=== PATIENT | female | born 1945 | race Caucasian/White ===

== ENCOUNTER 2016-12-01 23:45 | Emergency (ER) | payer OTHER ==
[~2016-12-01] VITALS: Ht 167.6 cm; Wt 89.0 kg
[~2016-12-01 23:45] MED LIST: CARV6.25 PO; FURO20TA PO; IPRA1AER2 INH; LISI-729 PO; OMEP40CA36 PO; ONDA4TAB65 PO; SERT100T PO; SITA1TAB27 PO; THEO300T14 PO
[2016-12-01 23:54] VITALS: BP 138/85; PULSE 80; TEMP 37.2; O2SAT 95; Ht 167.6 cm; Wt 89.0 kg
--- NOTE | 2016-12-02 00:08 | EMERGENCY ROOM VISIT NOTE ---
History Report prepared by Dayo: Lesa Saenz Under the Supervision of: Dr. Balwinder Sy D.O. First contact with patient: 23:59 Chief Complaint: RASH Stated Complaint: RASH ALL OVER BODY History of Present Illness The patient is a 71 year old female who presents to the Emergency Room with complaints of a persistent diffuse rash on chest, stomach, and bilateral lower extremities rash starting about a year ago. The patient has been applying Nystatin powder and cream without relief. She has run out of the Nystatin cream. The patient denies fevers, chills, or any other complaints. She has a history of diabetes. Source of History: patient Onset: about a year ago Position: chest, abdomen, other (bilateral lower extremities) Quality: other (rash) Modifying Factors (Relieving): other (Nystatin powder and cream without relief) Associated Symptoms: No chills, No fevers Review of Systems See HPI for pertinent positives and negatives. A total of ten systems were reviewed and were otherwise negative. Past Medical & Surgical Medical Problems: (1) Arthritis (2) Asthma (3) Benign hypertension (4) Cholecystectomy (5) COPD (chronic obstructive pulmonary disease) (6) Diabetes (7) Diabetes mellitus (8) Pulmonary emphysema Family History FH: HTN (hypertension) FH: cancer FH: diabetes mellitus FH: heart disease FH: lung cancer FH: lung disease FHx: gallbladder disease Social History Smoking Status: Current Every Day Smoker Marital Status: Housing Status: lives with family Occupation Status: retired Current/Historical Medications Scheduled Carvedilol (Coreg), 6.25 MG PO BID Furosemide (Lasix), 20 MG PO DAILY Lisinopril (Zestril), 5 MG PO QPM Omeprazole (Prilosec), 40 MG PO HS Sertraline Hcl (Zoloft), 100 MG PO DAILY Sitagliptin (Januvia), 100 MG PO DAILY Theophylline Ext Rel (Ho-Dur Ext Rel), 600 MG PO BID Scheduled PRN Ipratropium-Albuterol (Combivent Respimat), 1 PUFFS INH Q4H PRN for Shortness of Breath Ondansetron Hcl (Zofran), 4 MG PO Q8 PRN for Nausea Allergies Coded Allergies: Penicillins (Unverified Allergy, Unknown, TONGUE SWELLING, 03/12/16) Azithromycin (Unverified Adverse Reaction, Unknown, NAUSEA, 03/12/16) Physical Exam Vital Signs Date Time Temp Pulse Resp B/P Pulse Ox O2 Delivery O2 Flow Rate FiO2 12/01/16 23:54 37.2 80 18 138/85 95 Room Air Physical Exam GENERAL: Awake, alert, well-appearing, in no distress HENT: Normocephalic, atraumatic. Oropharynx unremarkable. EYES: Normal conjunctiva. Sclera non-icteric. NECK: Supple. No nuchal rigidity. FROM. No JVD. RESPIRATORY: Clear to auscultation. CARDIAC: Regular rate, normal rhythm. Extremities warm and well perfused. Pulses equal. ABDOMEN: Soft, non-distended. No tenderness to palpation. No rebound or guarding. No masses. RECTAL: Deferred. MUSCULOSKELETAL: Chest examination reveals no tenderness. The back is symmetrical on inspection without obvious abnormality. There is no CVA tenderness to palpation. No joint edema. LOWER EXTREMITIES: Calves are equal size bilaterally and non-tender. No edema. No discoloration. NEURO: Normal sensorium. No sensory or motor deficits noted. SKIN: No rash or jaundice noted. Yeast infection under left breast and near crotch area. Medical Decision & Procedures ED Course 2359: The patient was evaluated in room C03. A complete history and physical exam was performed. 0025: I reevaluated the patient. Discussed results and discharge instructions: She verbalized understanding and agreement. The patient is ready for discharge. Medical Decision Differential diagnosis includes but is not limited to dermatitis, yeast infection, candidiasis, fungal infection. will treat with diflucan and nystatin Impression Primary Impression: Intertrigo Additional Impression: Yeast infection Scribe Attestation The scribe's documentation has been prepared under my direction and personally reviewed by me in its entirety. I confirm that the note above accurately reflects all work, treatment, procedures, and medical decision making performed by me. Departure Information Prescriptions Nystatin (Topical) (NYSTATIN) 100,000 Unit/Gm Oin 1 APPLN TOP QID for 10 Days, #30 GM Prov: Balwinder yS, DO 12/02/16 Fluconazole (DIFLUCAN) 150 Mg Tab 150 MG PO DAILY for 10 Days, #10 TAB Prov: Balwinder Sy, DO 12/02/16 Referrals Arthur Cruz M.D. (PCP) Patient Instructions ED Candidiasis Cutaneous, My [facility] Problem Qualifiers
[2016-12-02] MEDS ORDERED: NYST80OI TOP (00:15)
[2016-12-02] MEDS ORDERED: FLUC150T PO (00:15)
[2017-03-03] MEDS ORDERED: HYDR-4079 PO (13:21)
[2017-03-03] MEDS ORDERED: FAMO20TA11 PO (13:21)
[2017-03-03] MEDS ORDERED: SITA50TA3 PO (13:21)
[2017-06-12] MEDS ORDERED: FURO20TA PO (13:19)
[2017-06-12] MEDS ORDERED: LISI-729 PO (13:19)
== END 2016-12-02 00:23 | disposition home or self-care (01) ==
LOC: C.EDB 23:46 → C.EDC 12-02 00:23
DX: L30.4 Erythema intertrigo (principal); B37.9 Candidiasis, unspecified; E11.9 Type 2 diabetes mellitus without complications; J45.909 Unspecified asthma, uncomplicated; I10 Essential (primary) hypertension; Z90.49 Acquired absence of other specified parts of digestive tract; J44.9 Chronic obstructive pulmonary disease, unspecified; Z82.49 Family history of ischemic heart disease and other diseases of the circulatory system; Z83.3 Family history of diabetes mellitus; Z80.1 Family history of malignant neoplasm of trachea, bronchus and lung; F17.210 Nicotine dependence, cigarettes, uncomplicated; Z79.899 Other long term (current) drug therapy

== ENCOUNTER → 2017-02-28 | Outpatient (CLI) | payer OTHER ==
[~2017-02-28] MED LIST changes: +FAMO20TA11 PO; +HYDR-4079 PO; +SITA50TA3 PO; +THEO1TAB14 PO; -THEO300T14 PO
--- NOTE | 2017-02-28 11:11 | DIAGNOSTIC IMAGING REPORT ---
PET/CT SKULL-THIGH HISTORY: Lung nodule SINGLE PULMONARY NODULE TECHNIQUE: PET/CT was performed from the base of the skull through the pelvis following the intravenous administration of 15.1 mCi of F18-FDG. Non-contrast CT imaging was performed over the same range without breath-hold for attenuation correction of PET images and anatomic correlation, but not for primary interpretation as it is not of standard diagnostic quality. CT DOSE: COMPARISON: None. FINDINGS: HEAD AND NECK: There is no FDG-avid disease or significant lymphadenopathy in the imaged portions of the head and the neck. CHEST: Spiculated FDG avid right retrohilar nodule measuring 2.9 cm at maximum. This is immediately anterior to the right major fissure area SUV characteristics are 6.9 at maximum. 1.4 cm metabolically active right hilar node measuring 5.5 SUV characteristics. Small metabolically active right para aortic node measuring 7 mm. This is SUV characteristics of 3.8. No additional pulmonary findings are present. ABDOMEN/PELVIS: Below the diaphragm, tracer is distributed physiologically in the gastrointestinal and genitourinary tracts. There is no significant lymphadenopathy and no FDG-avid disease. MUSCULOSKELETAL: There is no FDG-avid or destructive bone lesion. IMPRESSION: 1. Metabolically active right upper lobe mass measuring 2.9 cm at maximum. 2. Metabolically active right hilar and right periaortic nodes. 3. Remainder the study is unremarkable. 4. A neoplastic process is the diagnosis of exclusion The above report was generated using voice recognition software. It may contain grammatical, syntax or spelling errors. Electronically signed by: Uriel Ji M.D. 02/28/2017 11:10 AM Dictated Date/Time: 02/28/2017 11:02 AM
== END | disposition home or self-care (01) ==
LOC: C.PET 08:00
PROVIDERS: ATTEND Physician Assistant
DX: R91.8 Other nonspecific abnormal finding of lung field (principal); R91.1 Solitary pulmonary nodule

== ENCOUNTER → 2017-03-04 | Outpatient (CLI) | payer OTHER ==
[~2017-03-04] MED LIST changes: -OMEP40CA36 PO; -SITA1TAB27 PO
== END | disposition home or self-care (01) ==
LOC: C.CPL 13:23
PROVIDERS: ATTEND Physician Assistant
DX: R91.8 Other nonspecific abnormal finding of lung field (principal); R91.1 Solitary pulmonary nodule

== ENCOUNTER → 2017-03-04 | Outpatient (CLI) | payer OTHER ==
[2017-03-04 13:36] LABS: BASO % 0.8 %; BASO ABS # 0.05 K/uL (0-0.2); COMPLETE YES; EOS % 3.1 %; HEMATOCRIT 40.1 % (37-47); IG% 0.2 %; LYMPH % 20.3 %; LYMPH ABS # 1.25 K/uL (1.2-3.4); MEAN CORPUSCULAR HEMOGLOBIN 28.6 pg (25-34); MEAN CORPUSCULAR HGB CONC 34.9 g/dl (32-36); MEAN PLATELET VOLUME 11.3 fL (7.4-10.4); NEUT % 63.6 %; PLATELET COUNT 149 K/uL (130-400); RED BLOOD COUNT 4.89 M/uL (4.2-5.4); WHITE BLOOD COUNT 6.17 K/uL (4.8-10.8)
[2017-03-04 13:44] LABS: PROTHROMBIN TIME (PATIENT) 10.7 SECONDS (9.0-12.0)
[2017-03-04 14:08] LABS: BLOOD UREA NITROGEN 25 mg/dl (7-18); BUN/CREATININE RATIO 13.8 (10-20); CARBON DIOXIDE 23 mmol/L (21-32); CHLORIDE 106 mmol/L (98-107); GLUCOSE 153 mg/dl (70-99); POTASSIUM 3.9 mmol/L (3.5-5.1); SODIUM 137 mmol/L (136-145)
== END | disposition home or self-care (01) ==
LOC: C.LAB1850 12:50
PROVIDERS: ATTEND Physician Assistant
DX: R91.1 Solitary pulmonary nodule (principal)

== ENCOUNTER → 2017-03-09 | Day surgery (SDC) | payer OTHER ==
[2017-03-03 13:22] VITALS: BMI 31.0
[~2017-03-09] VITALS: Ht 167.6 cm; Wt 88.0 kg
[~2017-03-09] MED LIST changes: +ATROPINE SULFATE 0.1 MG/ML 5ML SYR IV PRN; +DEXAMETHASONE SOD INJ 4 MG/ML VIAL ONE; +EpHEDrine SULFATE INJ 50 MG/ML AMP IV PRN; +FENTANYL CITRATE INJ 50 MCG/1 ML 2 ML VIAL IV PRN; +FENTANYL CITRATE INJ 50 MCG/1 ML 2 ML VIAL ONE; +HYDROmorphone INJ 1 MG/ML SYR IV PRN; +LACTATED RINGER'S 1000ML 1,000 ML IV SCH; +LARYING-O-JET KIT (LTA) ONE; +LIDOCAINE HCL 2% 2 ML VIAL (20MG/ML) ONE; +MIDAZOLAM HCL 1 MG/ML 2ML VIAL ONE; +ONDANSETRON INJ 2 MG/ML 2 ML VIAL IV PRN; +ONDANSETRON INJ 2 MG/ML 2 ML VIAL ONE; +PROPOFOL IV EMULSION 10 MG/ML 20 ML VIAL IV ONE; +ROCURONIUM BROMIDE 10 MG/ML 5 ML VIAL IV ONE
[2017-03-09 05:44] VITALS: BP 116/72; PULSE 76; TEMP 36.9; O2SAT 95; Ht 167.6 cm; Wt 88.0 kg
--- NOTE | 2017-03-09 06:28 | History and Physical ---
History & Physical Date Mar 09, 2017. Chief Complaint Pulmonary nodule with mediastinal lymphadenopathy History of Present Illness The patient is a 71 year old female at high risk for primary lung ca her for evalaution of a pulmonary nodule with mediastinal lymphadenopathy: 71-year-old female presents the office for continuation of work-up of pulmonary nodule - post cardiac studies. Prior records reviewed. PMHx includes : Anxiety, CKD, COPD/ACOS, nocturnal hypoxemia on 2 LPM O2 QHS, hypertension, pulmonary nodule, osteoarthritis, vitamin-D deficiency, vitamin B12 deficiency, coronary artery disease, and diabetes mellitus type 2. She is a current smoker, 40+ pack years, current 1/2-ppd. 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 Patient was admitted 02/2016 syncope. Workup included a CT angiogram which described RUL 2.7cm pulmonary nodule as well as right-sided infiltrate - ( reviewed personally). This had been evaluated at that time by Dr. Bravo who recommended an outpatient PET/CT however the patient deferred further testing at that time. Post discharged she discussed her case with her PCP and CT was repeated 10/2016 ( reviewed personally) which continued to describe a 3 x 2.7 x 2.1cm speculated non-calcified posterior inferior RUL nodule/mass. She was referred to our outpatient office 11/2016 for further discussion and she was agreeable to work- up at that time. PET/CT (02/28/17) 2.9cm RUL nodule SUV=6.9 1.4cm right hilar lymphonde SUV=5.5 (10R) 7mm para aortic SUV=3.8 Active Problems 1. Anxiety 2. Asthma with COPD 3. Candidal intertrigo 4. Chronic kidney disease 5. Diabetes mellitus 6. Disorder of tympanic membrane 7. Gastroesophageal reflux disease 8. Hypertension 9. Hypocalcemia 10. Insomnia 11. Knee pain 12. Ligament tear 13. Low back pain 14. Lung mass 15. Osteoarthritis 16. Pulmonary nodule 17. Shortness of breath 18. Thoracic back pain 19. Tinea cruris 20. Tobacco dependence syndrome 21. Vitamin B12 deficiency 22. Vitamin D deficiency Surgical History 1. History of Cholecystectomy 2. History of Tonsillectomy With Adenoidectomy 3. History of Total Abdominal Hysterectomy 4. History of Tubal Ligation Family History 1. Family history of cardiac disorder 2. Family history of diabetes mellitus 3. Family history of gallbladder disease 4. Family history of hypertension 5. Family history of lung cancer 6. Family history of lung disease 7. FHx: cancer Social History Current every day smoker Rarely consumes alcohol Current Meds 1. Combivent Respimat 20-100 MCG/ACT Inhalation Aerosol Solution; One Puff (4) times daily 2. Coreg 6.25 MG Oral Tablet; TAKE 1 TABLET BY MOUTH TWICE DAILY WITH MEALS; 3. Famotidine 20 MG Oral Tablet; TAKE 1 TABLET TWICE DAILY; 4. Hydrocodone-Acetaminophen 10-325 MG Oral Tablet; TAKE 1 TABLET BY MOUTH TWICE DAILY NEEDED FOR PAIN 5. Lasix 20 MG Oral Tablet; TAKE 1 TABLET DAILY DIRECTED; 6. Ho-Dur 300 MG TB12; TAKE 1 TABLET TWICE DAILY; 7. Zestril 5 MG Oral Tablet; TAKE 1 TABLET DAILY 8. Zofran 4 MG Oral Tablet; TAKE 1 TABLET Every 4 hours PRN nausea; 9. Zoloft 100 MG Oral Tablet; TAKE (1) TABLET DAILY Allergies 1. Azithromycin TABS 2. Penicillins Past Medical/Surgical History Medical Problems: (1) Arthritis (2) Asthma (3) Benign hypertension (4) Cholecystectomy (5) COPD (chronic obstructive pulmonary disease) (6) Diabetes (7) Diabetes mellitus (8) Pulmonary emphysema Additional History Hepatic Disease: No Endocrine Disorder: No Kidney Disease: No Hypertension: No Heart Disease: No Bleeding Tendencies: No Infectious Diseases: No Allergies Coded Allergies: Adhesives (Unverified Allergy, Unknown, PULLS SKIN OFF, 03/09/17) Penicillins (Unverified Allergy, Unknown, TONGUE SWELLING, 03/09/17) Azithromycin (Unverified Adverse Reaction, Unknown, NAUSEA, 03/09/17) Home Medications Scheduled Carvedilol (Coreg), 6.25 MG PO BID Famotidine (Pepcid), 20 MG PO BID Furosemide (Lasix), 20 MG PO QAM Hydrocodone/Acetaminophen 10MG/325MG ([place] 10MG/325MG), 1 TAB PO BID Lisinopril (Zestril), 5 MG PO QPM Sertraline Hcl (Zoloft), 100 MG PO QAM Sitagliptin (Januvia), 50 MG PO QAM Theophylline Ext Rel (Ho-Dur Ext Rel), 600 MG PO BID Scheduled PRN Ipratropium-Albuterol (Combivent Respimat), 1 PUFFS INH Q4H PRN for Shortness of Breath Ondansetron Hcl (Zofran), 4 MG PO Q8 PRN for Nausea Physical Examination Skin: warm/dry, no rash Eyes: normal inspection, EOMI, sclerae normal ENT: normal ENT inspection, pharynx normal Head: normocephalic, atraumatic Neck: supple, no adenopathy, trachea midline Respiratory/Chest: lungs clear, normal breath sounds, no respiratory distress Cardiovascular: regular rate, rhythm, no edema, no murmur Abdomen / GI: normal bowel sounds, non tender Back: normal inspection Extremities: normal inspection, normal range of motion Neurologic/Psych: no motor/sensory deficits, alert, normal reflexes, oriented x 3 Diagnosis Pulmonary nodule with mediastinal lymphadenopathy ASA Classification: ASA Class I Plan of Treatment Bronchoscopy with EBUS/ENB/Flexible and associated transbronchial-Transtracheal FNA, Tbbx, BAL and Cytology brushing
--- NOTE | 2017-03-09 07:16 | History & Physical Bridge Note ---
H&P Re-Evaluation Bridge Note: I have examined the patient, reviewed the History & Physical and in the interval since the performance of the History & Physical I have noted the following changes of clinical significance: No changes noted
--- NOTE | 2017-03-09 09:25 | Bronchoscopy Procedure Note ---
Bronchoscopy Procedure Note Procedure: Flexible-Bronchoscopy, EBUS, Tbbx, GETA, FNA trans-bronchial, BAL Consent: Obtained through the patient placed into the chart Preprocedural diagnosis: Positive nodule Postprocedural diagnosis: Non-small cell lung cancer Analgesia: GETA Sedation: GETA Procedure: The Olympus video bronchoscope and EBUS scope were used for this procedure Initially the flexible bronchoscope was used for evaluation of the airways. The ET tube was notably 5 cm above the level of the catia. Trachea: Visualized portion of the trachea was anatomically within normal limits Catia: Anatomically within normal limits Right bronchial tree: Right mainstem bronchus: There was notable enlargement of the secondary catia leading to the right upper lobe Right upper lobe: Anatomically within normal limits Bronchus intermedius: Anatomically within normal limits Right middle lobe: Anatomically within normal limits Right lower lobe: Anatomically within normal limits Findings: No significant findings noted Left bronchial tree: Left mainstem bronchus: Anatomically within normal limits Left upper lobe: Anatomically within normal limits Lingula: Anatomically within normal limits Left lower lobe: Anatomically within normal limits Findings: No significant findings noted EBUS/AMADOU: Tbbx Nicholas Stations: 7: # of passes 3, appears more necrotic versus fat 11R: # of passes 6 (positive for non-small cell lung carcinoma) Nicholas stations: 10L, 4L, 11L, 4R, 2R, 2L, 10R, 11R evaluated with no signs of significant nicholas disease Complications: None Follow-up: Patient is to return to her room
--- NOTE | 2017-03-09 09:40 | DIAGNOSTIC IMAGING REPORT ---
CHEST ONE VIEW PORTABLE CLINICAL HISTORY: 71 years-old Female presenting with status post transbronchial biopsy rule out pneumothorax. TECHNIQUE: Portable upright AP view of the chest was obtained. COMPARISON: 03/12/2016, 10/28/2016, chest CT from 10/28/2016, and PET/CT from 02/28/2017. FINDINGS: Tortuosity of the descending thoracic aorta. Cardiac silhouette normal in size. Interval development of right hilar prominence. Redemonstration of the right upper lobe mass. No additional focal infiltrate or pulmonary nodule is radiographically evident. No large effusion or pneumothorax. Osseous structures normal. Upper abdomen normal. IMPRESSION: 1. No pneumothorax status post biopsy. 2. Interval development of right hilar prominence, which likely corresponds to hilar lymphadenopathy best seen on recent PET/CT. 3. Persistent right upper lobe mass. No new focal infiltrate. Electronically signed by: Huey Joshi M.D. 03/09/2017 9:38 AM Dictated Date/Time: 03/09/2017 9:35 AM
--- NOTE | 2017-03-09 10:08 | Anesthesiology Progress Note ---
Anesthesia Post Op Note Date & Time Mar 09, 2017 at 10:07 Vital Signs Pain Intensity: 0 Vital Signs Past 12 Hours Date Time Temp Pulse Resp B/P (MAP) Pulse Ox O2 Delivery O2 Flow Rate FiO2 03/09/17 09:57 70 19 03/09/17 09:57 71 19 93 03/09/17 09:56 119/74 03/09/17 09:54 36.4 71 19 119/74 (85) 95 Nasal Cannula 2 03/09/17 09:52 74 19 94 03/09/17 09:52 74 19 03/09/17 09:51 129/70 03/09/17 09:47 79 18 94 03/09/17 09:47 79 18 03/09/17 09:46 123/69 03/09/17 09:42 80 19 03/09/17 09:42 81 19 95 03/09/17 09:41 83 18 137/85 97 03/09/17 09:41 83 18 03/09/17 09:36 80 20 03/09/17 09:36 80 20 123/77 96 03/09/17 09:31 81 16 03/09/17 09:31 80 16 129/74 95 03/09/17 09:27 144/74 03/09/17 09:26 85 15 93 03/09/17 09:26 36.2 84 20 144/74 97 Mask 10 03/09/17 09:26 85 15 03/09/17 05:44 36.9 76 20 116/72 (87) 95 Notes Mental Status: alert / awake / arousable, participated in evaluation Pt Amnestic to Procedure: Yes Nausea / Vomiting: adequately controlled Pain: adequately controlled Airway Patency, RR, SpO2: stable & adequate BP & HR: stable & adequate Hydration State: stable & adequate Anesthetic Complications: no major complications apparent Doing well. VSS.
[2017-03-09 10:13] VITALS: BP 109/58; PULSE 72; TEMP 37; O2SAT 94
--- NOTE | 2017-03-09 10:14 | DIAGNOSTIC IMAGING REPORT ---
Radiology CHEST 1 VIEW FRONTAL CLINICAL HISTORY: 71 years-old Female presenting with NAVIGATIONAL BRONCH. TECHNIQUE: 1 fluoroscopic spot image(s) obtained as part of an intraoperative procedure. COMPARISON: Chest x-ray performed the same day. FINDINGS/IMPRESSION: A bronchoscope is noted in the region of the right upper lobe bronchus. Multiple overlying external leads. Please see surgical report for further details. Fluoroscopy dosage (mGy): Not available. Fluoroscopy time: 52 seconds. Number of fluoroscopic spot images: 1. Electronically signed by: Huey Joshi M.D. 03/09/2017 10:13 AM Dictated Date/Time: 03/09/2017 10:12 AM
[2017-03-09 10:45] VITALS: BP 103/60; PULSE 66; O2SAT 94
[2017-03-09 11:15] VITALS: BP 103/58; PULSE 68; TEMP 36.8; O2SAT 95
--- NOTE | 2017-03-09 11:49 | Discharge Instructions ---
Discharge Instructions Date of Service Mar 09, 2017. Admission Reason for Admission: Lung Mass, Pulmonary Nodule Discharge Discharge Diagnosis / Problem: Lung Cancer Discharge Goals Goal(s): Diagnostic testing Activity Recommendations Activity Limitations: resume your previous activity . Instructions / Follow-Up Instructions / Follow-Up Follow-up with Dr. Bravo in the clinic Current Hospital Diet Patient's current hospital diet: Discharge Diet Recommended Diet: Regular Diet Procedures Procedures Performed: Endobronchial Ultrasound Guided Biopsy; Electromagnetic Navigational Bronchoscopy; Transbronchial Biopsy; Fine Needle Aspiration; Bronchial Lavage Pending Studies Studies pending at discharge: no Medical Emergencies . Who to Call and When: Medical Emergencies: If at any time you feel your situation is an emergency, please call 911 immediately. . Non-Emergent Contact Non-Emergency issues call your: Enforcement Officer . . "Provider Documentation" section prepared by Tyron Bravo. . VTE Core Measure Inpt VTE Proph given/why not?: Treatment not indicated
[2017-03-09 12:05] VITALS: BP 115/54; PULSE 74; O2SAT 94
== END | disposition home or self-care (01) ==
LOC: C.ACU 05:11
PROVIDERS: ATTEND Internal Medicine Critical Care Medicine
DX: C34.11 Malignant neoplasm of upper lobe, right bronchus or lung (principal); C77.1 Secondary and unspecified malignant neoplasm of intrathoracic lymph nodes; F41.9 Anxiety disorder, unspecified; J44.9 Chronic obstructive pulmonary disease, unspecified; E11.22 Type 2 diabetes mellitus with diabetic chronic kidney disease; I12.9 Hypertensive chronic kidney disease with stage 1 through stage 4 chronic kidney disease, or unspecified chronic kidney disease; N18.9 Chronic kidney disease, unspecified; I25.10 Atherosclerotic heart disease of native coronary artery without angina pectoris; K21.9 Gastro-esophageal reflux disease without esophagitis; E83.51 Hypocalcemia; E55.9 Vitamin D deficiency, unspecified; E53.8 Deficiency of other specified B group vitamins; G47.36 Sleep related hypoventilation in conditions classified elsewhere; Z99.81 Dependence on supplemental oxygen; F17.210 Nicotine dependence, cigarettes, uncomplicated; Z79.899 Other long term (current) drug therapy

== ENCOUNTER 2017-06-07 21:39 | Inpatient (IN) | payer OTHER ==
[~2017-06-07] VITALS: Ht 167.6 cm; Wt 87.5 kg
[~2017-06-07 21:39] MED LIST changes: -ATROPINE SULFATE 0.1 MG/ML 5ML SYR IV PRN; -DEXAMETHASONE SOD INJ 4 MG/ML VIAL ONE; -EpHEDrine SULFATE INJ 50 MG/ML AMP IV PRN; -FENTANYL CITRATE INJ 50 MCG/1 ML 2 ML VIAL IV PRN; -FENTANYL CITRATE INJ 50 MCG/1 ML 2 ML VIAL ONE; -HYDROmorphone INJ 1 MG/ML SYR IV PRN; -LACTATED RINGER'S 1000ML 1,000 ML IV SCH; -LARYING-O-JET KIT (LTA) ONE; -LIDOCAINE HCL 2% 2 ML VIAL (20MG/ML) ONE; -MIDAZOLAM HCL 1 MG/ML 2ML VIAL ONE; -ONDANSETRON INJ 2 MG/ML 2 ML VIAL IV PRN; -ONDANSETRON INJ 2 MG/ML 2 ML VIAL ONE; -PROPOFOL IV EMULSION 10 MG/ML 20 ML VIAL IV ONE; -ROCURONIUM BROMIDE 10 MG/ML 5 ML VIAL IV ONE; -THEO1TAB14 PO; +THEO300T14 PO
[2017-06-07] MEDS ORDERED: SODIUM CHLORIDE 0.9% 1000ML 1,000 ML IV STA ×2 (21:41)
[2017-06-07] MEDS ORDERED: METOCLOPRAMIDE HCL INJ 5 MG/ML 2 ML VIAL IV STA (21:41)
[2017-06-07 22:08] LABS: PARTIAL THROMBOPLASTIN RATIO 0.9; PROTHROMBIN TIME (PATIENT) 10.7 SECONDS (9.0-12.0)
[2017-06-07 22:25] LABS: ALT/SGPT 21 U/L (12-78); BLOOD UREA NITROGEN 53 mg/dl (7-18); BUN/CREATININE RATIO 33.6 (10-20); CALCIUM 9.4 mg/dl (8.5-10.1); CARBON DIOXIDE 23 mmol/L (21-32); CHLORIDE 105 mmol/L (98-107); CREATININE 1.58 mg/dl (0.60-1.20); GLUCOSE 181 mg/dl (70-99); MAGNESIUM 2.2 mg/dl (1.8-2.4); POTASSIUM 4.1 mmol/L (3.5-5.1); SODIUM 138 mmol/L (136-145)
[2017-06-07 22:27] LABS: ALKALINE PHOSPHATASE 103 U/L (45-117); AST/SGOT 15 U/L (15-37)
--- NOTE | 2017-06-07 22:33 | DIAGNOSTIC IMAGING REPORT ---
CHEST ONE VIEW PORTABLE CLINICAL HISTORY: Sepsis. COMPARISON STUDY: Chest radiograph March 09, 2017 and PET/CT February 28, 2017. FINDINGS: Lung volumes are normal. There is no consolidation to suggest pneumonia. There is suspected subsegmental bibasilar atelectasis. There is no evidence of pulmonary edema. Cardiomediastinal silhouette is normal. The known right upper lobe lesion is less distinct on this examination. IMPRESSION: 1. No acute cardiopulmonary findings. 2. Decreased conspicuity of the known right upper lobe lesion although suboptimally assessed by radiography. Electronically signed by: Woody Albright M.D. 06/07/2017 10:32 PM Dictated Date/Time: 06/07/2017 10:29 PM
[2017-06-07] MEDS ORDERED: DXM/4 PO (22:46)
[2017-06-07 23:05] LABS: HEMATOCRIT 37.5 % (37-47); MEAN CELL VOLUME 82.6 fL (80-100); MEAN CORPUSCULAR HGB CONC 33.9 g/dl (32-36); RED BLOOD COUNT 4.54 M/uL (4.2-5.4); WHITE BLOOD COUNT 1.98 K/uL (4.8-10.8)
[2017-06-07 23:08] LABS: DOHLE BODIES 1+; VACUOLIZATION 1+
[2017-06-07 23:12] LABS: COMPLETE YES; LARGE GRANULAR LYMPH ABSOLUTE 0.33 K/uL; LARGE GRANULAR LYMPHOCYTE % 16.5 %; LYMPH ABS # 0.93 K/uL (1.2-3.4); LYMPHOCYTE % 46.9 %; NEUTROPHILS % 29.6 %
--- NOTE | 2017-06-07 23:51 | EMERGENCY ROOM VISIT NOTE ---
ED Visit Note First contact with patient: 21:38 The patient was seen and examined with Demetria Wood PA-C. I agree with the history, physical and findings. Please see the note for disposition and details.
[2017-06-08] LABS: INFLUENZA A PCR Neg for Influ A (NEG); INFLUENZA B PCR Neg for Influ B (NEG)
[2017-06-08] MEDS ORDERED: MAGNESIUM HYDROXIDE SUSP 30 ML UDC PO PRN (00:15)
[2017-06-08] MEDS ORDERED: ONDANSETRON INJ 2 MG/ML 2 ML VIAL IV PRN (00:15)
[2017-06-08] MEDS ORDERED: ONDANSETRON 4 MG TAB PO PRN (00:15)
[2017-06-08] MEDS ORDERED: POLYETHYLENE (MIRALAX) 17 GM PACK PO PRN (00:15)
[2017-06-08] MEDS ORDERED: ALUMINUM/MAGNESIUM/SIMETH (MAALOX MAX) 30 ML UDC PO PRN (00:15)
[2017-06-08] MEDS ORDERED: GLUCOSE 10 TABS/TUBE PO PRN (00:30)
[2017-06-08] MEDS ORDERED: GLUCAGON FOR INJ 1 MG VIAL SQ PRN (00:30)
[2017-06-08] MEDS ORDERED: DEXTROSE 50% 50 ML SYR IV PRN (00:30)
[2017-06-08] MEDS ORDERED: GLUCOSE 40% GEL 15 GM TUBE PO PRN (00:30)
--- NOTE | 2017-06-08 00:40 | History and Physical ---
History & Physical Date & Time of Service: Jun 08, 2017 at 00:21 Chief Complaint: Lethergy, Dehydration, Nausea, Vomiting, Diarrhea Primary Care Physician: Arthur Cruz M.D. History of Present Illness Source: patient 71 y/o F hx COPD, HTN, LE edema, CKD III, DM - diagnosed with NSCLCA following incidental discovery of a RUL mass 03/03. CA has metastasized to lymph nodes. the pt has received 3 cycles of chemotherapy thus far. She presents with acute onset of nausea, diarrhea and abdominal discomfort beginning the morning prior to admission. She denies fevers, CP, SOB, productive cough or dysuria. Initial labs are notable for neutropenia. She has not been able to tolerate solids or fluids over the preceding day. 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 3) CKD III 4) Type II DM 5) GERD 6) B12 deficiency 7) Vitamin D deficiency 8) HTN 9) Lower extremity edema 10) Active smoker Surgical 1) Surgical biopsy of lung mass 2) Cholecystectomy 3) Tonsillectomy 4) ESTEFANY 5) Tubal ligation Family History FH: HTN (hypertension) FH: cancer FH: diabetes mellitus FH: heart disease FH: lung cancer FH: lung disease FHx: gallbladder disease Social History Smokes up to a pack daily Smoking Status: Current Some Day Smoker Marital Status: Housing status: lives with family Occupational Status: retired Allergies Coded Allergies: Adhesives (Unverified Allergy, Unknown, PULLS SKIN OFF, 03/09/17) Penicillins (Unverified Allergy, Unknown, TONGUE SWELLING, 03/09/17) Azithromycin (Unverified Adverse Reaction, Unknown, NAUSEA, 03/09/17) Home Medications Scheduled Carvedilol (Coreg), 6.25 MG PO BID Dexamethasone (Decadron), 4 MG PO BID UD Famotidine (Pepcid), 20 MG PO BID Furosemide (Lasix), 20 MG PO QAM Lisinopril (Zestril), 5 MG PO QPM Sertraline Hcl (Zoloft), 100 MG PO QAM Sitagliptin (Januvia), 50 MG PO QAM Theophylline Ext Rel (Ho-Dur Ext Rel), 600 MG PO BID Scheduled PRN Hydrocodone/Acetaminophen 10MG/325MG ([place] 10MG/325MG), 1 TAB PO BID PRN for Pain Ipratropium-Albuterol (Combivent Respimat), 1 PUFFS INH Q4H PRN for Shortness of Breath Ondansetron Hcl (Zofran), 4 MG PO Q8 PRN for Nausea Review of Systems Constitutional: + weakness, No fever, No chills, No sweats Eyes: No worsening of vision ENT: No hearing loss, No unusual epistaxis, No nasal symptoms Respiratory: No cough, No sputum, No wheezing, No shortness of breath, No dyspnea on exertion, No dyspnea at rest Cardiovascular: No chest pain, No orthopnea, No PND Abdomen: + pain, + nausea, + vomiting, + diarrhea, No constipation Musculoskeletal: + joint pain (Chronic lower back pain) Genitourinary - Female: No dysuria, No hematuria Neurologic: No memory loss Psychiatric: No depression symptoms Endocrine: No fatigue Hematologic / Lymphatic: No abnormal bleeding/bruising Integumentary: No rash Allergic / Immunologic: No environmental allergies Physical Exam Vital Signs Date Time Temp Pulse Resp B/P (MAP) Pulse Ox O2 Delivery O2 Flow Rate FiO2 06/07/17 22:53 81 14 115/77 96 Room Air 06/07/17 22:14 81 06/07/17 21:45 98 Room Air 06/07/17 21:45 37.2 79 16 121/68 98 Room Air General Appearance: WD/WN, no apparent distress Head: normocephalic Eyes: normal inspection, EOMI ENT: normal ENT inspection, pharynx normal Neck: supple, no JVD Respiratory/Chest: chest non-tender, + decreased breath sounds (L > R) Cardiovascular: regular rate, rhythm, no edema, no gallop, no JVD, no murmur, normal peripheral pulses Abdomen/GI: normal bowel sounds, non tender, soft Back: normal inspection, no CVA tenderness Extremities/Musculoskelatal: normal inspection, no calf tenderness, normal capillary refill, no pedal edema, normal range of motion 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9 36.4-46.3 fL RDW Coefficient of Variation 15.2 11.5-14.5 % Neutrophils % (Manual) 29.6 % Lymphocytes % (Manual) 46.9 % Monocytes % (Manual) 7.0 % Neutrophils # (Manual) 0.59 1.4-6.5 K/uL Total Absolute Neutrophils 0.59 1.4-6.5 K/uL Lymphocytes # (Manual) 0.93 1.2-3.4 K/uL Total Absolute Lymphocytes 1.26 1.2-3.4 K/uL Monocytes # (Manual) 0.14 0.11-0.59 K/uL Percent Large Granular Lymphocytes 16.5 % Absolute Large Granular Lymphocytes 0.33 K/uL Toxic Vacuolation 1+ Dohle Bodies 1+ Prothrombin Time 10.7 9.0-12.0 SECONDS Prothromb Time International Ratio 1.0 0.9-1.1 Activated Partial Thromboplast Time 24.6 21.0-31.0 SECONDS Partial Thromboplastin Ratio 0.9 Sodium Level 138 136-145 mmol/L Potassium Level 4.1 3.5-5.1 mmol/L Chloride Level 105 98-107 mmol/L Carbon Dioxide Level 23 21-32 mmol/L Anion Gap 10.0 3-11 mmol/L Blood Urea Nitrogen 53 7-18 mg/dl Creatinine 1.58 0.60-1.20 mg/dl Est Creatinine Clear Calc Drug Dose 36.7 ml/min Estimated GFR () 37.5 Estimated GFR (Non- 32.3 BUN/Creatinine Ratio 33.6 10-20 Random Glucose 181 70-99 mg/dl Calcium Level 9.4 8.5-10.1 mg/dl Magnesium Level 2.2 1.8-2.4 mg/dl Total Bilirubin 0.9 0.2-1 mg/dl Aspartate Amino Transf (AST/SGOT) 15 15-37 U/L Alanine Aminotransferase (ALT/SGPT) 21 12-78 U/L Alkaline Phosphatase 103 45-117 U/L Troponin I < 0.015 0-0.045 ng/ml Total Protein 7.3 6.4-8.2 gm/dl Albumin 3.7 3.4-5.0 gm/dl Globulin 3.6 2.5-4.0 gm/dl Albumin/Globulin Ratio 1.0 0.9-2 Chemistry Specimen Hemolysis Bedside Troponin I < 0.030 0-0.045 ng/ml Bedside Lactic Acid Venous 1.07 0.90-1.70 mmol/L Influenza Type A (RT-PCR) Neg for Influ A NEG Influenza Type A Antigen Neg for Influ A NEG Influenza Type B Antigen Neg for Influ B NEG Influenza Type B (RT-PCR) Neg for Influ B NEG Microbiology Results 06/07/17 Blood Culture, Received Pending 06/07/17 Blood Culture, Received Pending 06/07/17 C.difficile Toxin B Gene (PCR), Ordered Pending 06/07/17 Shiga Toxin Test, Ordered Pending 06/07/17 Stool Culture, Ordered Pending Diagnostic Radiology CXR: 1. No acute cardiopulmonary findings. 2. Decreased conspicuity of the known right upper lobe lesion although suboptimally assessed by radiography. Abdominal CT: Nonspecific finding of fluid filled loop of small bowel - may represent enteritis. Impression Assessment and Plan 71 y/o F hx COPD, HTN, LE edema, CKD III, DM - diagnosed with NSCLCA following incidental discovery of a RUL mass 03/03. CA has metastasized to lymph nodes. the pt has received 3 cycles of chemotherapy thus far. She presents with acute onset of nausea, diarrhea and abdominal discomfort beginning the morning prior to admission. 1) Intractable nausea and vomiting - pt placed on IVF, clear diet - antiemetics provided - will advance diet AM if tolerated - may be related to Chemo or enteritis. 2) Diarrhea - Cultures sent - do not see clear justification for antibiotic use initially as she does not have signs of systemic infection 3) CKD III - Maintain adequate hydration - Lasix held until tolerating PO 4) DM - placed on SS 5) Neutropenia - Chemo-related - will trend CBC - consult Oncology if needed. 6) COPD - no evidence of acute exacerbation - cont prescribed inhalers 7) HTN - Lasix and Lisinopril held presently owing to dehydration - would continue to hold Lasix and reintroduce SAROJ if renal function and BP are stable. Full code - SCDs pending availability of platelet count Total time for this admit including review of labs, meds, imaging, records - discussion with pt and ER attending - 40 min Level of Care Med/Surg Resuscitation Status FULL RESUSCITATION VTE Prophylaxis VTE Risk Assessment Done? Y/N: Yes Risk Level: High Given or contraindicated: SCD's
--- NOTE | 2017-06-08 00:46 | EMERGENCY ROOM VISIT NOTE ---
History First contact with patient: 21:38 Chief Complaint: NAUSEA Stated Complaint: LETHERGY, DEHYDRATION, NAUSEA, VOMITING, DIARRHEA Nursing Triage Summary: PT C/O PERSISTENT N/V/D TODAY. PT HAS TAKEN ZOFRAN X 3 PO BUT CONTINUES TO HAVE NAUSEA. PT STATES 2ND CHEMOTHERAPY TX 06/02 FOR LUNG AND BONE CANCER. PT STATES HAS NOT EATEN FOR 3 DAYS. History of Present Illness The patient is a 71 year old female who presents to the Emergency Room with complaints of nausea, vomiting, diarrhea and abdominal pain with subjective fevers and chills for the past day. Patient is currently receiving chemotherapy every 3 weeks for lung and bone carcinoma. She last received chemotherapy on the of this month. Patient continues to smoke. She follows with Dr. Simon from oncology. Patient had a few day-old salad last night for dinner. Patient woke up with vomiting and diarrhea. No recent antibiotics. No well water. No recent travel. Patient complains of multiple episodes of vomiting and diarrhea that is nonbloody nonbilious nonblack and tarry in nature. Patient complains of abdominal pain as cramping, ranging in severity 6 out of 10 throughout the abdomen. Patient denies chest pain, headache, sore throat, urinary symptoms. Patient complains of increasing cough clear white sputum. Patient tried 3 Zofrans at home with no improvement of symptoms. Review of Systems See HPI for pertinent positives & negatives. A total of 10 systems reviewed and were otherwise negative. Past Medical/Surgical History Medical Problems: (1) Arthritis (2) Asthma (3) Benign hypertension (4) Cholecystectomy (5) COPD (chronic obstructive pulmonary disease) (6) Diabetes (7) Diabetes mellitus (8) Intractable nausea and vomiting (9) Lung cancer (10) Pulmonary emphysema Family History FH: HTN (hypertension) FH: cancer FH: diabetes mellitus FH: heart disease FH: lung cancer FH: lung disease FHx: gallbladder disease Social History Smoking Status: Current Some Day Smoker Drug Use: none Marital Status: Housing Status: lives with family Occupation Status: retired Current/Historical Medications Scheduled Carvedilol (Coreg), 6.25 MG PO BID Dexamethasone (Decadron), 4 MG PO BID UD Famotidine (Pepcid), 20 MG PO BID Furosemide (Lasix), 20 MG PO QAM Lisinopril (Zestril), 5 MG PO QPM Sertraline Hcl (Zoloft), 100 MG PO QAM Sitagliptin (Januvia), 50 MG PO QAM Theophylline Ext Rel (Ho-Dur Ext Rel), 600 MG PO BID Scheduled PRN Hydrocodone/Acetaminophen 10MG/325MG ([place] 10MG/325MG), 1 TAB PO BID PRN for Pain Ipratropium-Albuterol (Combivent Respimat), 1 PUFFS INH Q4H PRN for Shortness of Breath Ondansetron Hcl (Zofran), 4 MG PO Q8 PRN for Nausea Physical Exam Vital Signs Date Time Temp Pulse Resp B/P (MAP) Pulse Ox O2 Delivery O2 Flow Rate FiO2 06/07/17 22:53 81 14 115/77 96 Room Air 06/07/17 22:14 81 06/07/17 21:45 98 Room Air 06/07/17 21:45 37.2 79 16 121/68 98 Room Air Physical Exam VITALS: Vitals are noted on the nurse's note and reviewed by myself. Vital signs stable. GENERAL: White female actively vomiting, in no acute distress, nondiaphoretic SKIN: The skin was without rashes, erythema, edema, or bruising. There is no tenting of the skin. Capillary reflex less than 2 seconds. HEAD: Normocephalic atraumatic. EARS: External auditory canals clear, tympanic membranes pearly galarza without erythema or effusion bilaterally. EYES: Pupils equal round and reactive to light and accommodation. Conjunctivae without injection, sclerae without icterus. Extraocular movements intact. NOSE: Patent, turbinates without inflammation or discharge. No sinus tenderness. MOUTH: Mucous membranes mildly dry. Pharynx without erythema or exudate. Uvula midline. Airway patent. Tongue does not deviate. NECK: Supple without nuchal rigidity. No lymphadenopathy. No thyromegaly. Cervical spine is nontender. No JVD. HEART: Regular rate and rhythm LUNGS: Clear to auscultation bilaterally without wheezes, rales or rhonchi. No dullness to percussion. No retractions or accessory muscle use. ABDOMEN: Positive bowel sounds x 4. Normal tympanic percussion. Soft, tender to palpation upper abdomen, no CVA tenderness, without masses or organomegaly. Calixto sign negative. No guarding or rebound tenderness. MUSCULOSKELETAL: No muscle atrophy, erythema, or edema noted. NEURO: Patient was alert and oriented to person place and time. Normal sensation to light and sharp touch. No focal neurological deficits. Medical Decision & Procedures Laboratory Results 06/07/17 21:10 Red Blood Count 4.54, Mean Corpuscular Volume 82.6, Mean Corpuscular Hemoglobin 28.0, Mean Corpuscular Hemoglobin Concent 33.9, Mean Platelet Volume 06/07/17 21:10 Test 06/07/17 21:10 06/07/17 21:48 06/07/17 22:15 06/07/17 22:35 White Blood Count 1.98 K/uL (4.8-10.8) Red Blood Count 4.54 M/uL (4.2-5.4) Hemoglobin 12.7 g/dL (12.0-16.0) Hematocrit 37.5 % (37-47) Mean Corpuscular Volume 82.6 fL (80-100) Mean Corpuscular Hemoglobin 28.0 pg (25-34) Mean Corpuscular Hemoglobin Concent 33.9 g/dl (32-36) Platelet Count K/uL (130-400) Mean Platelet Volume fL (7.4-10.4) RDW Standard Deviation 42.9 fL (36.4-46.3) RDW Coefficient of Variation 15.2 % (11.5-14.5) Neutrophils % (Manual) 29.6 % Lymphocytes % (Manual) 46.9 % Monocytes % (Manual) 7.0 % Neutrophils # (Manual) 0.59 K/uL (1.4-6.5) Total Absolute Neutrophils 0.59 K/uL (1.4-6.5) Lymphocytes # (Manual) 0.93 K/uL (1.2-3.4) Total Absolute Lymphocytes 1.26 K/uL (1.2-3.4) Monocytes # (Manual) 0.14 K/uL (0.11-0.59) Percent Large Granular Lymphocytes 16.5 % Absolute Large Granular Lymphocytes 0.33 K/uL Toxic Vacuolation 1+ Dohle Bodies 1+ Prothrombin Time 10.7 SECONDS (9.0-12.0) Prothromb Time International Ratio 1.0 (0.9-1.1) Activated Partial Thromboplast Time 24.6 SECONDS (21.0-31.0) Partial Thromboplastin Ratio 0.9 Anion Gap 10.0 mmol/L (3-11) Est Creatinine Clear Calc Drug Dose 36.7 ml/min Estimated GFR () 37.5 Estimated GFR (Non- 32.3 BUN/Creatinine Ratio 33.6 (10-20) Calcium Level 9.4 mg/dl (8.5-10.1) Magnesium Level 2.2 mg/dl (1.8-2.4) Total Bilirubin 0.9 mg/dl (0.2-1) Aspartate Amino Transf (AST/SGOT) 15 U/L (15-37) Alanine Aminotransferase (ALT/SGPT) 21 U/L (12-78) Alkaline Phosphatase 103 U/L (45-117) Troponin I < 0.015 ng/ml (0-0.045) Total Protein 7.3 gm/dl (6.4-8.2) Albumin 3.7 gm/dl (3.4-5.0) Globulin 3.6 gm/dl (2.5-4.0) Albumin/Globulin Ratio 1.0 (0.9-2) Chemistry Specimen Hemolysis Bedside Troponin I < 0.030 ng/ml (0-0.045) Bedside Lactic Acid Venous 1.07 mmol/L (0.90-1.70) Influenza Type A (RT-PCR) Neg for Influ A (NEG) Influenza Type A Antigen Neg for Influ A (NEG) Influenza Type B Antigen Neg for Influ B (NEG) Influenza Type B (RT-PCR) Neg for Influ B (NEG) Medications Administered Medications (Trade) Dose Ordered Sig/Jennifre Route Start Time Stop Time Status Last Admin Dose Admin Metoclopramide HCl (Reglan Inj) 10 mg NOW STAT IV 06/07/17 21:41 06/07/17 21:44 DC 06/07/17 21:54 10 MG Sodium Chloride 1,000 ml @ 999 mls/hr Q1H1M STAT IV 06/07/17 21:41 06/07/17 22:41 DC 06/07/17 22:20 999 MLS/HR Sodium Chloride 1,000 ml @ 125 mls/hr Q8H STAT IV 06/07/17 21:41 06/08/17 00:11 DC 06/07/17 22:21 125 MLS/HR ED Course Prior records/ancillary studies reviewed. Triage Nursing notes reviewed. Additional history obtained from the EMS. The patient's history was concerning for nausea, vomiting, diarrhea, and abdominal pain who is a chemotherapy patient. Differential diagnosis: Etiologies such as neutropenic fever, gastroenteritis, food borne illness, infections, appendicitis, diverticulitis, inflammatory bowel disease, obstruction, GI bleed, biliary pathology, as well as others were entertained. Physical examination findings: As above. Abdominal examination revealed tenderness. Vital signs reviewed and revealed stable. ER treatment provided: IV hydration 1 L NSS. Reglan On reassessment the patient felt better. Patient was tolerating p.o. intake. Diagnostics interpretation by me: The labs revealed white blood count of 1.98 with neutrophils of 0.59%. Stool cultures pending. Negative lactic acid. Blood cultures pending Imaging studies: CT ABDOMEN & PELVIS Without Contrast: Comparison: PET/CT, 02/28/[address] abdomen and pelvis 05/24/15 Several fluid-filled nondilated loops of small bowel. Findings are nonspecific but can be seen with enteritis in the appropriate clinical setting. No evidence of bowel obstruction. No free air. Colonic diverticulosis without evidence of diverticulitis. Gallbladder is surgically absent. Right renal hypodensities, some compatible with cysts and some too small to characterize. Hyperdense focus in the lower pole of the right kidney is indeterminate but stable, possible hemorrhagic cyst. Left adrenal adenoma. Uterus is surgically absent. Small hiatal hernia. Radiologist: Bakari Garland MD CLINICAL HISTORY: Sepsis. COMPARISON STUDY: Chest radiograph March 09, 2017 and PET/CT February 28, 2017. FINDINGS: Lung volumes are normal. There is no consolidation to suggest pneumonia. There is suspected subsegmental bibasilar atelectasis. There is no evidence of pulmonary edema. Cardiomediastinal silhouette is normal. The known right upper lobe lesion is less distinct on this examination. IMPRESSION: 1. No acute cardiopulmonary findings. 2. Decreased conspicuity of the known right upper lobe lesion although suboptimally assessed by radiography. Electronically signed by: Woody Albright M.D. Consultation: A consultation was placed with the hospitalist, Dr Daniel. The case was discussed and diagnostics were reviewed. The patient was evaluated in the ER for further treatment. This appears to be consistent with vomiting and diarrhea who is a cancer patient. Patient still felt quite weak and was vomiting. She will be evaluated for possible admission. Patient was not neutropenic. Negative lactic acid. Blood cultures are pending. Stool cultures pending. Patient was hydrated as above. By the evaluation outlined above emergent etiologies such as appendicitis, diverticulitis, obstruction, cardiac sources, mesenteric ischemia, aortic pathology, inflammatory bowel disease, renal colic, PUD, biliary pathology, UTI, as well as others were deemed relatively unlikely. The pt informed about the findings as listed above. All questions were answered and pleased with the treatment. Case reviewed with my Attending. Medical Decision As above Medication Reconcilliation Current Medication List: was personally reviewed by me Blood Pressure Screening Patient's blood pressure: Normal blood pressure Impression Primary Impression: Gastroenteritis Additional Impressions: Dehydration Intractable vomiting Departure Information Dispostion Being Evaluated By Hospitalist Condition FAIR Referrals Arthur Cruz M.D. (PCP) Patient Instructions My [facility] Problem Qualifiers
[2017-06-08] MEDS: INSULIN ASPART 100 UNITS/ML 3 ML PEN SC SCH ×5 (01:00→21:04)
[2017-06-08] MEDS ORDERED: IV FLUIDS COMPLETED PRN (01:00)
[2017-06-08] MEDS: SODIUM CHLORIDE 0.9% 1000ML 1,000 ML IV SCH ×2 (01:10→08:14)
[2017-06-08 01:15] VITALS: BP 130/78; PULSE 78; TEMP 37.1; O2SAT 96; BMI 31.3
[2017-06-08] MEDS: IPRATROPIUM BROMIDE/ALBUTEROL respimat INH INH PRN ×2 (05:16→11:26)
[2017-06-08 06:46] LABS: HEMATOCRIT 30.3 % (37-47); MEAN CELL VOLUME 82.8 fL (80-100); MEAN CORPUSCULAR HEMOGLOBIN 28.4 pg (25-34); MEAN CORPUSCULAR HGB CONC 34.3 g/dl (32-36); MEAN PLATELET VOLUME 9.8 fL (7.4-10.4); PLATELET COUNT 139 K/uL (130-400); RED BLOOD COUNT 3.66 M/uL (4.2-5.4); WHITE BLOOD COUNT 1.42 K/uL (4.8-10.8)
--- NOTE | 2017-06-08 06:46 | DIAGNOSTIC IMAGING REPORT ---
CT SCAN OF THE ABDOMEN AND PELVIS WITHOUT CONTRAST CLINICAL HISTORY: Abdominal pain. Patient history of carcinoma. Fever. COMPARISON STUDY: 05/24/2015 TECHNIQUE: CT scan of the abdomen and pelvis was performed from the lung bases to the proximal femurs. Images are reviewed in the axial, sagittal, and coronal planes. IV contrast was not administered for this examination. A dose lowering technique was utilized adhering to the principles of ALARA. CT DOSE: 836.20 mGy.cm FINDINGS: Lower chest: There are minor basilar atelectatic changes. Liver: The unenhanced liver is normal in size, contour, and attenuation. There is no intrahepatic biliary ductal dilatation. Gallbladder: Surgically absent Spleen: Normal in size and attenuation. Pancreas: Unremarkable. Adrenal glands: There is low-density bilateral adrenal gland thickening likely secondary to hyperplasia Kidneys: There is a 9 mm lower pole left renal hypodensity likely representing a cyst. There is a 4 mm hyperdense focus in the upper pole of the right kidney likely representing a hyperdense cyst. There is a 12 mm hyperdense focus within the lower pole of the right kidney likely representing a hyperdense cyst. There is a 2 cm pelvic hypodensity likely are presenting a parapelvic cyst. There is no significant hydronephrosis. No renal, ureteral, or bladder calculi are visualized. Bowel: There are no transition zones indicate bowel obstruction. There is pandiverticulosis. There are no acute peridiverticular inflammatory changes. The appendix is not visualized. There are no findings to indicate acute appendicitis Peritoneum: There is no intraperitoneal free air or abdominal ascites. Vasculature: The abdominal aorta is normal in course and caliber. Adenopathy: None. Pelvic viscera: The uterus is surgically absent. Skeletal structures: No destructive osseous lesions are seen. IMPRESSION: 1. Bilateral renal lesions likely represent a combination of cysts and hyperdense cysts 2. No evidence of bowel obstruction. No evidence of free air 3. Pandiverticulosis. No evidence of acute diverticulitis. Electronically signed by: Rosales Garcia M.D. 06/08/2017 6:44 AM Dictated Date/Time: 06/08/2017 6:40 AM
[2017-06-08 07:22] LABS: BUN/CREATININE RATIO 32.6 (10-20); CALCIUM 7.8 mg/dl (8.5-10.1); CREATININE 1.35 mg/dl (0.60-1.20); MAGNESIUM 1.9 mg/dl (1.8-2.4); POTASSIUM 3.9 mmol/L (3.5-5.1)
[2017-06-08 07:49] VITALS: BP 117/73; PULSE 86; TEMP 36.7; O2SAT 95
[2017-06-08] MEDS ORDERED: HYDROCODONE/ACETAMI 10/325 TAB PO PRN (08:00)
[2017-06-08] MEDS ORDERED: INFLUENZA VACCINE HIGH DOSE 65+ 0.5 ML SYR IM. ONE (08:00)
[2017-06-08] MEDS ORDERED: INFLUENZA ADMINISTRATION CHARGE ONE (08:00)
[2017-06-08] MEDS: SERTRALINE HCL 100 MG TAB PO SCH (08:12)
[2017-06-08] MEDS: THEOPHYLLINE 300MG EXTENDED REL TAB PO SCH ×2 (08:12→20:02)
[2017-06-08] MEDS: CARVEDILOL 6.25 MG TAB PO SCH ×2 (08:12→20:02)
[2017-06-08] MEDS: FAMOTIDINE 20 MG TAB PO SCH ×2 (08:12→20:02)
[2017-06-08] MEDS: DEXAMETHASONE 4 MG TAB PO SCH ×2 (08:13→20:02)
[2017-06-08 08:22] VITALS: BP 129/66; PULSE 56; TEMP 36.5; O2SAT 91
[2017-06-08 10:11] LABS: COMPLETE YES; EOS % 1.3 %; IG% 5.3 %; LYMPH % 57.3 %; LYMPH ABS # 0.86 K/uL (1.2-3.4); MONO % 6.7 %; NEUT % 29.4 %
[2017-06-08 11:24] LABS: URINE APPEARANCE CLEAR (CLEAR); URINE BILIRUBIN NEG (NEG); URINE COLOR YELLOW; URINE NITRITE NEG (NEG); URINE SPECIFIC GRAVITY 1.019 (1.000-1.030); UROBILINOGEN NEG (NEG); ZZUR CULT IF INDIC CLEAN CATCH NO
[2017-06-08 11:30] LABS: MANUAL MICROSCOPIC REQUIRED? NO; REVIEW REQ? NO
--- NOTE | 2017-06-08 11:53 | Progress Note ---
Progress Note Date of Service Jun 08, 2017. Progress Note Patient admitted after midnight. Examined by me this morning. The patient reports feeling better today. She is tolerating clear liquids without more nausea or vomiting. She still has some epigastric pain as well as diarrhea. She denies any hematochezia or melena. She reports a mild productive cough with clear sputum. She also notes numbness/tingling in the bottom of her feet bilaterally, which began Tuesday and is new. The patient denies fevers, chills, sweats, chest pain, palpitations, claudication, wheezing , shortness of breath, nausea, vomiting, abdominal pain, dysuria, hematuria, urinary retention, paralysis, weakness. Physical exam pertinent for epigastric tenderness, otherwise unremarkable. A/P: Nausea and vomiting--resolving -No N/V today -Tolerating clear liquids -Advance to full liquids -Zofran prn nausea Diarrhea -C. diff negative -Stool cultures pending -Afebrile, no other s/s infection. Hold off on abx Neutropenia--ongoing -Likely secondary to recent chemo, last session 06/02 -Can consult oncology if worsening
[2017-06-08 11:59] VITALS: BP 106/63; PULSE 79; TEMP 37.4; O2SAT 95
[2017-06-08 15:58] VITALS: BP 96/57; PULSE 91; TEMP 37.3; O2SAT 95
[2017-06-08] MEDS: BOOST GLUCOSE CONTROL PO SCH (17:11)
[2017-06-08 19:24] VITALS: BP 106/61; PULSE 93; TEMP 36.9; O2SAT 99
[2017-06-08] MEDS: ACETAMINOPHEN 325 MG TAB PO PRN (23:51)
[2017-06-09] VITALS (11 sets, daily range): BP systolic 92–153; BP diastolic 48–94; PULSE 77–110; TEMP 36.9–39.4; O2SAT 95–99
[2017-06-09 06:29] LABS: HEMATOCRIT 26.3 % (37-47); MEAN CELL VOLUME 82.7 fL (80-100); MEAN CORPUSCULAR HEMOGLOBIN 27.7 pg (25-34); MEAN CORPUSCULAR HGB CONC 33.5 g/dl (32-36); MEAN PLATELET VOLUME 9.8 fL (7.4-10.4); PLATELET COUNT 97 K/uL (130-400); RED BLOOD COUNT 3.18 M/uL (4.2-5.4); WHITE BLOOD COUNT 0.78 K/uL (4.8-10.8)
[2017-06-09 06:38] LABS: PLT ESTIMATE DECREASED
[2017-06-09 06:47] LABS: BUN/CREATININE RATIO 28.9 (10-20); CALCIUM 7.9 mg/dl (8.5-10.1); CREATININE 1.03 mg/dl (0.60-1.20); POTASSIUM 4.5 mmol/L (3.5-5.1)
[2017-06-09] MEDS: INSULIN ASPART 100 UNITS/ML 3 ML PEN SC SCH ×4 (07:53→20:29)
[2017-06-09] MEDS: SERTRALINE HCL 100 MG TAB PO SCH (07:54)
[2017-06-09] MEDS: DEXAMETHASONE 4 MG TAB PO SCH (07:54)
[2017-06-09] MEDS: THEOPHYLLINE 300MG EXTENDED REL TAB PO SCH ×2 (07:54→20:26)
[2017-06-09] MEDS: CARVEDILOL 6.25 MG TAB PO SCH ×2 (07:54→20:26)
[2017-06-09] MEDS: FAMOTIDINE 20 MG TAB PO SCH ×2 (07:54→20:25)
[2017-06-09] MEDS: BOOST GLUCOSE CONTROL PO SCH ×3 (07:56→17:00)
[2017-06-09] MEDS ORDERED: CEFEPIME IV 2,000 MG in DEXTROSE 5% 100ML 100 ML IV SCH (09:00)
[2017-06-09] MEDS ORDERED: CEFEPIME IV 2,000 MG in SYRINGE 7.5 ML IV SCH (10:00)
[2017-06-09] MEDS: CEFEPIME IV 2,000 MG in SYRINGE 7.5 ML IV SCH ×2 (10:21→18:11)
[2017-06-09] MEDS: ACETAMINOPHEN 325 MG TAB PO PRN (10:30)
--- NOTE | 2017-06-09 12:19 | Oncology Consultation ---
Oncology/Heme Consultation Date of Consultation: Jun 09, 2017. Attending Physician: Natasha Manriquez MD Reason for Consultation: Pancytopenia history of non-small cell lung carcinoma History of Present Illness Ms. Roegl is a 71-year-old female that has a history of non-small cell lung carcinoma felt to be adenocarcinoma and was biomarker negative. She was diagnosed in mid February. A PET CT scan results suggested at least stage III and possibly stage IIIb disease. She has been treated with pemetrexed and carboplatinum with the last treatment being June 02. She states that on Tuesday she became nauseated. She is able to keep food down. She states that she feels that she has had a fever although she has never recorded a temperature at home. She does admit to an occasional chill. She denies diarrhea. She denies any mouth sores or new shortness of breath. She has been treated with Neulasta as support. She now presents with cytopenias secondary to her therapy. Past Medical/Surgical History Medical Problems: (1) Dehydration Status: Acute (2) Gastroenteritis Status: Acute (3) Intertrigo Status: Acute (4) Intractable vomiting Status: Acute (5) Mass of right lung Status: Acute (6) Near syncope Status: Acute (7) Pain of left calf Status: Acute (8) Yeast infection Status: Acute Family History FH: HTN (hypertension) FH: cancer FH: diabetes mellitus FH: heart disease FH: lung cancer FH: lung disease FHx: gallbladder disease Social History Smoking Status: Current Some Day Smoker Drug Use: none Marital Status: Housing Status: lives with family Occupation Status: retired Allergies Coded Allergies: Adhesives (Unverified Allergy, Unknown, PULLS SKIN OFF, 03/09/17) Penicillins (Unverified Allergy, Unknown, TONGUE SWELLING, 03/09/17) Azithromycin (Unverified Adverse Reaction, Unknown, NAUSEA, 03/09/17) Home Medications Scheduled Carvedilol (Coreg), 6.25 MG PO BID Dexamethasone (Decadron), 4 MG PO BID UD Famotidine (Pepcid), 20 MG PO BID Furosemide (Lasix), 20 MG PO QAM Lisinopril (Zestril), 5 MG PO QPM Sertraline Hcl (Zoloft), 100 MG PO QAM Sitagliptin (Januvia), 50 MG PO QAM Theophylline Ext Rel (Ho-Dur Ext Rel), 600 MG PO BID Scheduled PRN Hydrocodone/Acetaminophen 10MG/325MG ([place] 10MG/325MG), 1 TAB PO BID PRN for Pain Ipratropium-Albuterol (Combivent Respimat), 1 PUFFS INH Q4H PRN for Shortness of Breath Ondansetron Hcl (Zofran), 4 MG PO Q8 PRN for Nausea Current Inpatient Medications Current Inpatient Medications Medications (Trade) Dose Ordered Sig/Jennifer Route Start Time Stop Time Status Last Admin Dose Admin Acetaminophen (Tylenol Tab) 650 mg Q4H PRN PO 06/08/17 00:15 07/08/17 00:14 06/09/17 10:30 650 MG Al Hydrox/Mg Hydrox/Simethicone (Maalox Max Susp) 15 ml Q4H PRN PO 06/08/17 00:15 07/08/17 00:14 Magnesium Hydroxide (Milk Of Magnesia Susp) 30 ml Q6H PRN PO 06/08/17 00:15 07/08/17 00:14 Polyethylene (Miralax Powder Packet) 17 gm DAILY PRN PO 06/08/17 00:15 07/08/17 00:14 Ondansetron HCl (Zofran Inj) 4 mg Q6H PRN IV 06/08/17 00:15 07/08/17 00:14 Carvedilol (Coreg Tab) 6.25 mg BID PO 06/08/17 08:00 07/08/17 08:59 06/09/17 07:54 6.25 MG Dexamethasone (Decadron Tab) 4 mg BID PO 06/08/17 08:00 07/08/17 08:59 06/09/17 07:54 4 MG Famotidine (Pepcid Tab) 20 mg BID PO 06/08/17 08:00 07/08/17 08:59 06/09/17 07:54 20 MG Acetaminophen/ Hydrocodone Bitart ([place] 10/325 Tab) 1 tab BID PRN PO 06/08/17 08:00 06/22/17 08:59 Albuterol/ Ipratropium (Combivent Respimat Inh) 1 puffs Q4H PRN INH 06/08/17 00:15 07/08/17 00:14 06/08/17 11:26 1 PUFFS Ondansetron HCl (Zofran Tab) 4 mg Q8 PRN PO 06/08/17 00:15 07/08/17 00:14 Sertraline HCl (Zoloft Tab) 100 mg QAM PO 06/08/17 08:00 07/08/17 08:59 06/09/17 07:54 100 MG Theophylline (Ho-Dur Extended Rel Tab) 600 mg BID PO 06/08/17 08:00 07/08/17 08:59 06/09/17 07:54 600 MG Insulin Aspart (novoLOG ASPART) SLIDING SCALE G... ACHS SC 06/08/17 01:00 07/08/17 00:59 06/09/17 12:13 3 UNITS Glucose (Glucose 40% Gel) 15-30 GRAMS 15 GRAMS... UD PRN PO 06/08/17 00:30 07/08/17 00:29 Glucose (Glucose Chew Tab) 4-8 Tablets 4 Tabl... UD PRN PO 06/08/17 00:30 07/08/17 00:29 Dextrose (Dextrose 50% 50ML Syringe) 25-50ML OF 50% DW IV FOR... UD PRN IV 06/08/17 00:30 07/08/17 00:29 Glucagon (Glucagon Inj) 1 mg UD PRN SQ 06/08/17 00:30 07/08/17 00:29 Miscellaneous (Iv Fluids Completed) 1 ea PRN PRN N/A 06/08/17 01:00 06/08/18 00:59 Enteral Nutritional Formula (Boost Glucose Control) 1 can TIDM PO 06/08/17 17:00 07/08/17 16:59 06/09/17 07:56 1 CAN Cefepime HCl 2000 mg/Syringe 20 ml @ 5 mls/min Q8H IV 06/09/17 10:00 06/11/17 09:59 06/09/17 10:21 5 MLS/MIN Review of Systems Constitutional: Negative for night sweats, possible fever and chills at home Eyes: Negative for event change of vision ENT: Negative for epistaxis, nasal discharge, sore throat, or deafness Cardiovascular: Negative for chest pain, palpitations, dizziness, diaphoresis Respiratory: Negative for new shortness of breath,hemoptysis, or purulent cough Gastrointestinal: Negative for diarrhea, hematemesis, melena, nausea, vomiting , or dyspepsia Integumentary (skin): Negative for rash or jaundice discoloration Genitourinary: Negative for urinary frequency, hematuria, or dysuria Neurological: Negative for weakness, seizure activity, headache, or dizziness Lymphatic/Hematologic: Negative for petechiae, bleeding or new adenopathy Musculoskeletal: Negative for new joint or back pain Allergic/Immunologic: Negative for unusual rash or pruritis. Physical Exam Date Time Temp Pulse Resp B/P (MAP) Pulse Ox O2 Delivery O2 Flow Rate FiO2 06/09/17 11:21 39.2 110 20 92/48 (63) 97 06/09/17 10:25 39.4 06/09/17 08:30 99 Room Air 06/09/17 07:40 37.6 90 18 153/94 (113) 99 Room Air 06/09/17 04:17 37.1 88 19 106/63 (77) 97 Room Air 06/09/17 01:30 38.4 06/09/17 00:37 39.2 90 18 114/70 (85) 95 Room Air 06/09/17 00:09 39.0 97 18 137/76 (96) 95 Room Air 06/09/17 00:00 Room Air 06/08/17 19:24 36.9 93 18 106/61 (76) 99 Room Air 06/08/17 16:00 Room Air 06/08/17 15:58 37.3 91 17 96/57 (70) 95 Room Air Constitutional: vitals are stable. Eyes: Eyes are YANNI EOMI without conjuctival erythema or icterus. ENT: External examination was negative for masses. Neck: Negative for masses or palpable thyromegaly Respiratory: Lung sounds were generally clear bilaterally Cardiovascular: Heart was RRR without significant murmur, gallops ore rubs Gastrointestinal: No palpable hepatic or splenomegaly. The abdomen was soft with normal bowel sounds. Lymphatic system: there was no palpable peripheral lymphadenopathy Musculoskeletal System: The musculoskeletal system seemed concordant with age. Skin: The skin was negative for jaundice. Neurologic exam: The exam was negative for any focal findings. Deep tendon reflexes were equal and symmetrical. Psychiatric exam: Was essentially negative with normal mood and effect. Breast exam:Not done. Extremities: negative for edema Laboratory Results Last 24 Hours Test 06/08/17 14:39 06/08/17 16:32 06/08/17 20:32 06/09/17 05:51 Calcium Level 7.8 mg/dl 7.9 mg/dl Bedside Glucose 196 mg/dl 220 mg/dl White Blood Count 0.78 K/uL Red Blood Count 3.18 M/uL Hemoglobin 8.8 g/dL Hematocrit 26.3 % Mean Corpuscular Volume 82.7 fL Mean Corpuscular Hemoglobin 27.7 pg Mean Corpuscular Hemoglobin Concent 33.5 g/dl RDW Standard Deviation 42.4 fL RDW Coefficient of Variation 14.6 % Platelet Count 97 K/uL Mean Platelet Volume 9.8 fL Platelet Estimate DECREASED Sodium Level 135 mmol/L Potassium Level 4.5 mmol/L Chloride Level 106 mmol/L Carbon Dioxide Level 20 mmol/L Anion Gap 9.0 mmol/L Blood Urea Nitrogen 30 mg/dl Creatinine 1.03 mg/dl Est Creatinine Clear Calc Drug Dose 55.7 ml/min Estimated GFR () 62.9 Estimated GFR (Non- 54.3 BUN/Creatinine Ratio 28.9 Random Glucose 152 mg/dl Test 06/09/17 07:34 06/09/17 11:31 Bedside Glucose 138 mg/dl 248 mg/dl Assessment & Plan Pancytopenia secondary to her therapy for stage IIIb adenocarcinoma of the lung. Supportive care continues. Antibiotics are ongoing. She seems fairly comfortable at this juncture. Predictably able to take another 2 or 3 days before her blood counts begin to recover. Clinically she appears stable and supportive care is ongoing. Appreciate hospitalist's help.
--- NOTE | 2017-06-09 15:35 | Hospitalist Progress Note ---
Hospitalist Progress Note Date of Service Jun 09, 2017. Subjective Pt evaluation today including: conversation w/ patient Pt denies any problems, has been tired today. Discussed case with Oncology. Pt is juan j po, no further N/V/D, no abd pain. No cough, no sore throat, no CP or SOB , no urinary sxs. All Other Systems: Reviewed and Negative Objective Vital Signs Date Time Temp Pulse Resp B/P (MAP) Pulse Ox O2 Delivery O2 Flow Rate FiO2 06/09/17 15:12 36.9 81 18 96/59 (71) 96 Nasal Cannula 06/09/17 11:21 39.2 110 20 92/48 (63) 97 06/09/17 10:25 39.4 06/09/17 08:30 99 Room Air 06/09/17 07:40 37.6 90 18 153/94 (113) 99 Room Air 06/09/17 04:17 37.1 88 19 106/63 (77) 97 Room Air 06/09/17 01:30 38.4 06/09/17 00:37 39.2 90 18 114/70 (85) 95 Room Air 06/09/17 00:09 39.0 97 18 137/76 (96) 95 Room Air 06/09/17 00:00 Room Air 06/08/17 19:24 36.9 93 18 106/61 (76) 99 Room Air 06/08/17 16:00 Room Air 06/08/17 15:58 37.3 91 17 96/57 (70) 95 Room Air Physical Exam General Appearance: WD/WN, no apparent distress Eyes: normal inspection, sclerae normal ENT: hearing grossly normal, pharynx normal Neck: trachea midline Respiratory/Chest: lungs clear, normal breath sounds, no respiratory distress, no accessory muscle use Cardiovascular: regular rate, rhythm, no edema, no gallop, no murmur Abdomen: normal bowel sounds, non tender, soft, no organomegaly, no pulsatile mass Extremities: non-tender, normal inspection, no pedal edema, no calf tenderness Neurologic/Psychiatric: alert, normal mood/affect, oriented x 3 Skin: normal color, warm/dry, no rash Laboratory Results Last 24 Hours Test 06/08/17 16:32 06/08/17 20:32 06/09/17 05:51 06/09/17 07:34 Bedside Glucose 196 mg/dl 220 mg/dl 138 mg/dl White Blood Count 0.78 K/uL Red Blood Count 3.18 M/uL Hemoglobin 8.8 g/dL Hematocrit 26.3 % Mean Corpuscular Volume 82.7 fL Mean Corpuscular Hemoglobin 27.7 pg Mean Corpuscular Hemoglobin Concent 33.5 g/dl RDW Standard Deviation 42.4 fL RDW Coefficient of Variation 14.6 % Platelet Count 97 K/uL Mean Platelet Volume 9.8 fL Platelet Estimate DECREASED Sodium Level 135 mmol/L Potassium Level 4.5 mmol/L Chloride Level 106 mmol/L Carbon Dioxide Level 20 mmol/L Anion Gap 9.0 mmol/L Blood Urea Nitrogen 30 mg/dl Creatinine 1.03 mg/dl Est Creatinine Clear Calc Drug Dose 55.7 ml/min Estimated GFR () 62.9 Estimated GFR (Non- 54.3 BUN/Creatinine Ratio 28.9 Random Glucose 152 mg/dl Calcium Level 7.9 mg/dl Test 06/09/17 11:31 Bedside Glucose 248 mg/dl Assessment and Plan 71 y/o F hx COPD, HTN, LE edema, CKD III, DMII - diagnosed with NSCLC following incidental discovery of a RUL mass 03/03. CA has metastasized to lymph nodes. The pt has received 3 cycles of chemotherapy thus far. She presents with acute onset of nausea, vomiting, diarrhea and epigastric abdominal discomfort beginning the morning prior to admission. She spiked a fever within 24 hrs after admission. Admitted for intractable N/V, diarrhea, and Neutropenic fever. Intractable nausea and vomiting, diarrhea, abd pain -resolved now after IVFs, 1 dose of Reglan in ER given. May be related to Chemo or enteritis. C. diff and Stool culture both negative and now diarrhea resolved. -tolerating reg diet -continue supportive care -dcd IVFs Neutropenic Fever-pancytopenia related to Chemo, clement is today as per Oncology. Received Neulasta as outpt. Does NOT have a port. ANC 500 on admisison --> 440 yesterday, not done today but WBC count down further to 780 today Hgb down to 8.8 from 10.4, some dilutional effect as well Plts dropped to 97k from 139k UA negative, could be from viral gastroenteritis vs bacteremia, no other clear symptoms of source. 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 mixer baseline around 1.2, was 1.58 on admission, now down to 1.03 with IVFs -continue to hold Lasix, lisinopril -follow PRP -avoid nephrotoxins -renally dose all meds NSCLC with LN mets-receiving chemo currently -Appreciate Oncology consultation -ok to dc dexamethasone-was only to be given through the day after chemo DMII -last HgbA1C 6.2% in 03/12/17 -hold Januvia here -SSI, accuchecks COPD - no evidence of acute exacerbation - cont prescribed inhalers, Theophylline HTN - BPs stable -continue to hold Lasix and Lisinopril owing to dehydration -continue Coreg Depression-stable -continue sertraline Proph- SCDs given dropping platelets, Pepcid for GI proph Dispo-remain here until afebrile and ANC trending upward
[2017-06-10] VITALS (8 sets, daily range): BP systolic 93–110; BP diastolic 51–70; PULSE 76–86; TEMP 36.7–37.6; O2SAT 95–99
[2017-06-10] MEDS: CEFEPIME IV 2,000 MG in SYRINGE 7.5 ML IV SCH ×3 (01:40→17:46)
[2017-06-10 06:40] LABS: HEMATOCRIT 23.8 % (37-47); MEAN CELL VOLUME 81.2 fL (80-100); MEAN CORPUSCULAR HEMOGLOBIN 27.6 pg (25-34); MEAN PLATELET VOLUME 10.7 fL (7.4-10.4); PLATELET COUNT 72 K/uL (130-400); RED BLOOD COUNT 2.93 M/uL (4.2-5.4); WHITE BLOOD COUNT 0.81 K/uL (4.8-10.8)
[2017-06-10 06:48] LABS: BUN/CREATININE RATIO 29.1 (10-20); CALCIUM 7.9 mg/dl (8.5-10.1); CREATININE 1.09 mg/dl (0.60-1.20); POTASSIUM 3.7 mmol/L (3.5-5.1)
[2017-06-10 07:17] LABS: COMPLETE YES; DOHLE BODIES 2+; EOS % 3.7 %; IG% 6.2 %; LYMPH ABS # 0.64 K/uL (1.2-3.4); MONO % 3.7 %; NEUT % 7.4 %
[2017-06-10] MEDS: INSULIN ASPART 100 UNITS/ML 3 ML PEN SC SCH ×4 (07:27→21:30)
[2017-06-10] MEDS: BOOST GLUCOSE CONTROL PO SCH ×3 (08:06→17:00)
[2017-06-10] MEDS: FAMOTIDINE 20 MG TAB PO SCH ×2 (08:07→21:26)
[2017-06-10] MEDS: CARVEDILOL 6.25 MG TAB PO SCH ×2 (08:07→21:27)
[2017-06-10] MEDS: THEOPHYLLINE 300MG EXTENDED REL TAB PO SCH ×2 (08:08→21:27)
[2017-06-10] MEDS: SERTRALINE HCL 100 MG TAB PO SCH (08:08)
--- NOTE | 2017-06-10 10:31 | Hospitalist Progress Note ---
Hospitalist Progress Note Date of Service Jun 10, 2017. Subjective Pt evaluation today including: conversation w/ patient Pt having diarrhea still, went 3 times so far this AM. No other concerns.Feels she is able to drink plenty of fluids. All Other Systems: Reviewed and Negative Objective Vital Signs Date Time Temp Pulse Resp B/P (MAP) Pulse Ox O2 Delivery O2 Flow Rate FiO2 06/10/17 07:15 37.5 79 20 101/65 (77) 96 Room Air 06/10/17 05:28 37.2 80 18 97/59 (72) 97 Room Air 06/10/17 01:30 Room Air 06/10/17 00:11 37.1 78 18 103/65 (78) 97 Room Air 06/09/17 19:31 36.9 77 18 96/59 (71) 96 Room Air 06/09/17 16:00 99 Room Air 06/09/17 15:12 36.9 81 18 96/59 (71) 96 Nasal Cannula 06/09/17 11:21 39.2 110 20 92/48 (63) 97 06/09/17 10:25 39.4 Physical Exam General Appearance: WD/WN, no apparent distress Eyes: normal inspection, sclerae normal ENT: hearing grossly normal Neck: trachea midline Respiratory/Chest: lungs clear, normal breath sounds, no respiratory distress, no accessory muscle use Cardiovascular: regular rate, rhythm, no edema, no gallop, no murmur Abdomen: normal bowel sounds, non tender, soft, no organomegaly Extremities: non-tender, normal inspection, no pedal edema, no calf tenderness Neurologic/Psychiatric: alert, normal mood/affect, oriented x 3 Skin: normal color, warm/dry, no rash Laboratory Results Last 24 Hours Test 06/09/17 11:31 06/09/17 16:17 06/09/17 20:17 06/10/17 05:47 Bedside Glucose 248 mg/dl 214 mg/dl 272 mg/dl White Blood Count 0.81 K/uL Red Blood Count 2.93 M/uL Hemoglobin 8.1 g/dL Hematocrit 23.8 % Mean Corpuscular Volume 81.2 fL Mean Corpuscular Hemoglobin 27.6 pg Mean Corpuscular Hemoglobin Concent 34.0 g/dl Platelet Count 72 K/uL Mean Platelet Volume 10.7 fL Neutrophils (%) (Auto) 7.4 % Lymphocytes (%) (Auto) 79.0 % Monocytes (%) (Auto) 3.7 % Eosinophils (%) (Auto) 3.7 % Basophils (%) (Auto) 0.0 % Neutrophils # (Auto) 0.06 K/uL Lymphocytes # (Auto) 0.64 K/uL Monocytes # (Auto) 0.03 K/uL Eosinophils # (Auto) 0.03 K/uL Basophils # (Auto) 0.00 K/uL RDW Standard Deviation 41.5 fL RDW Coefficient of Variation 14.5 % Immature Granulocyte % (Auto) 6.2 % Immature Granulocyte # (Auto) 0.05 K/uL Dohle Bodies 2+ Sodium Level 134 mmol/L Potassium Level 3.7 mmol/L Chloride Level 107 mmol/L Carbon Dioxide Level 19 mmol/L Anion Gap 8.0 mmol/L Blood Urea Nitrogen 32 mg/dl Creatinine 1.09 mg/dl Est Creatinine Clear Calc Drug Dose 52.7 ml/min Estimated GFR () 58.7 Estimated GFR (Non- 50.7 BUN/Creatinine Ratio 29.1 Random Glucose 102 mg/dl Calcium Level 7.9 mg/dl Test 06/10/17 06:59 Bedside Glucose 114 mg/dl Assessment and Plan Pt is a 71 y/o F hx COPD, HTN, LE edema, CKD III, DMII - diagnosed with NSCLC following incidental discovery of a RUL mass 03/03. CA has metastasized to lymph nodes. The pt has received 3 cycles of chemotherapy thus far. She presents with acute onset of nausea, vomiting, diarrhea and epigastric abdominal discomfort beginning the morning prior to admission. She spiked a fever within 24 hrs after admission. Admitted for intractable N/V, diarrhea, and Neutropenic fever. Intractable nausea and vomiting, diarrhea, abd pain/NonAnion Gap Metabolic Acidosis -N/V resolved after 1 dose of Reglan in ER given. Diarrhea persists today, May be related to Chemo or enteritis. C. diff and Stool culture both negative. HCO3 low at 19 secondary to GI losses -encouraged pleny of po fluis, she has Gatorade at bedside -tolerating reg diet -continue supportive care -follow PRP Neutropenic Fever-pancytopenia related to Chemo, clement currently as per Oncology. Received Neulasta as outpt. Does NOT have a port. ANC 500 on admission --> 440 ->60 today Hgb down to 8.1 from 10.4, some dilutional effect as well Plts dropped to 72k from 139k UA negative, could be from viral gastroenteritis vs bacteremia, no other clear symptoms of source. 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, was 1.58 on admission, now down to 1.09 with IVFs -continue to hold Lasix, lisinopril -follow PRP -avoid nephrotoxins -renally dose all meds NSCLC with LN mets-receiving chemo currently -Appreciate Oncology consultation -ok to dc dexamethasone-was only to be given through the day after chemo -f/u as outpt with Oncology as schedule after dc DMII -last HgbA1C 6.2% in 03/12/17 -hold Januvia here -SSI, accuchecks COPD - no evidence of acute exacerbation - -cont prescribed inhalers, Theophylline HTN - BPs stable -continue to hold Lasix and Lisinopril owing to dehydration -continue Coreg Depression-stable -continue sertraline Proph- SCDs given dropping platelets, Pepcid for GI proph Dispo-possibly to home in 1-2 days
--- NOTE | 2017-06-10 10:48 | Hematology/Oncology Prog Note ---
Hematology/Onc Progress Note Date of Service Jun 10, 2017. Diagnoses Pancytopenia secondary to chemotherapy. History of lung adenocarcinoma Medications Medications Administered Medications (Trade) Dose Ordered Sig/Jennifer Route Start Time Stop Time Status Last Admin Dose Admin Metoclopramide HCl (Reglan Inj) 10 mg NOW STAT IV 06/07/17 21:41 06/07/17 21:44 DC 06/07/17 21:54 10 MG Sodium Chloride 1,000 ml @ 999 mls/hr Q1H1M STAT IV 06/07/17 21:41 06/07/17 22:41 DC 06/07/17 22:20 999 MLS/HR Sodium Chloride 1,000 ml @ 125 mls/hr Q8H STAT IV 06/07/17 21:41 06/08/17 00:11 DC 06/07/17 22:21 125 MLS/HR Acetaminophen (Tylenol Tab) 650 mg Q4H PRN PO 06/08/17 00:15 07/08/17 00:14 06/09/17 10:30 650 MG Sodium Chloride 1,000 ml @ 100 mls/hr Q10H IV 06/08/17 01:00 06/08/17 20:59 DC 06/08/17 08:14 100 MLS/HR Carvedilol (Coreg Tab) 6.25 mg BID PO 06/08/17 08:00 07/08/17 08:59 06/10/17 08:07 6.25 MG Dexamethasone (Decadron Tab) 4 mg BID PO 06/08/17 08:00 06/09/17 15:32 DC 06/09/17 07:54 4 MG Famotidine (Pepcid Tab) 20 mg BID PO 06/08/17 08:00 07/08/17 08:59 06/10/17 08:07 20 MG Albuterol/ Ipratropium (Combivent Respimat Inh) 1 puffs Q4H PRN INH 06/08/17 00:15 07/08/17 00:14 06/08/17 11:26 1 PUFFS Sertraline HCl (Zoloft Tab) 100 mg QAM PO 06/08/17 08:00 07/08/17 08:59 06/10/17 08:08 100 MG Theophylline (Ho-Dur Extended Rel Tab) 600 mg BID PO 06/08/17 08:00 07/08/17 08:59 06/10/17 08:08 600 MG Insulin Aspart (novoLOG ASPART) SLIDING SCALE G... ACHS SC 06/08/17 01:00 07/08/17 00:59 06/09/17 20:29 3 UNITS Enteral Nutritional Formula (Boost Glucose Control) 1 can TIDM PO 06/08/17 17:00 07/08/17 16:59 06/10/17 08:06 1 CAN Cefepime HCl 2000 mg/Syringe 20 ml @ 5 mls/min Q8H IV 06/09/17 10:00 06/11/17 09:59 06/10/17 01:40 5 MLS/MIN Subjective She states she just does not feel well but she is without a fever and is able to keep food down. Otherwise her review of systems unremarkable she is having stool occasionally. C. difficile toxin was negative. Vital Signs Vital Signs Past 12 Hours Date Time Temp Pulse Resp B/P (MAP) Pulse Ox O2 Delivery O2 Flow Rate FiO2 06/10/17 07:15 37.5 79 20 101/65 (77) 96 Room Air 06/10/17 05:28 37.2 80 18 97/59 (72) 97 Room Air 06/10/17 01:30 Room Air 06/10/17 00:11 37.1 78 18 103/65 (78) 97 Room Air Laboratory Last 24 Hours Test 06/09/17 11:31 06/09/17 16:17 06/09/17 20:17 06/10/17 05:47 Bedside Glucose 248 mg/dl 214 mg/dl 272 mg/dl White Blood Count 0.81 K/uL Red Blood Count 2.93 M/uL Hemoglobin 8.1 g/dL Hematocrit 23.8 % Mean Corpuscular Volume 81.2 fL Mean Corpuscular Hemoglobin 27.6 pg Mean Corpuscular Hemoglobin Concent 34.0 g/dl Platelet Count 72 K/uL Mean Platelet Volume 10.7 fL Neutrophils (%) (Auto) 7.4 % Lymphocytes (%) (Auto) 79.0 % Monocytes (%) (Auto) 3.7 % Eosinophils (%) (Auto) 3.7 % Basophils (%) (Auto) 0.0 % Neutrophils # (Auto) 0.06 K/uL Lymphocytes # (Auto) 0.64 K/uL Monocytes # (Auto) 0.03 K/uL Eosinophils # (Auto) 0.03 K/uL Basophils # (Auto) 0.00 K/uL RDW Standard Deviation 41.5 fL RDW Coefficient of Variation 14.5 % Immature Granulocyte % (Auto) 6.2 % Immature Granulocyte # (Auto) 0.05 K/uL Dohle Bodies 2+ Sodium Level 134 mmol/L Potassium Level 3.7 mmol/L Chloride Level 107 mmol/L Carbon Dioxide Level 19 mmol/L Anion Gap 8.0 mmol/L Blood Urea Nitrogen 32 mg/dl Creatinine 1.09 mg/dl Est Creatinine Clear Calc Drug Dose 52.7 ml/min Estimated GFR () 58.7 Estimated GFR (Non- 50.7 BUN/Creatinine Ratio 29.1 Random Glucose 102 mg/dl Calcium Level 7.9 mg/dl Test 06/10/17 06:59 Bedside Glucose 114 mg/dl Assessment & Plan Pancytopenia secondary to chemotherapy. She is afebrile. Blood cultures are negative. C. difficile toxin was negative. Supportive care continues. Her blood counts perhaps are just slightly better today. Once the trend occurs in the right direction and she remains afebrile she certainly then can be discharged. I would expect some indication of blood cell recovery within the next day or 2
[2017-06-11] VITALS (7 sets, daily range): BP systolic 92–111; BP diastolic 53–69; PULSE 73–119; TEMP 37.1–37.6; O2SAT 93–99
[2017-06-11] MEDS: CEFEPIME IV 2,000 MG in SYRINGE 7.5 ML IV SCH ×3 (02:09→18:03)
[2017-06-11] MEDS: INSULIN ASPART 100 UNITS/ML 3 ML PEN SC SCH ×4 (06:30→21:20)
[2017-06-11 07:16] LABS: HEMATOCRIT 22.8 % (37-47); MEAN CELL VOLUME 81.1 fL (80-100); MEAN CORPUSCULAR HEMOGLOBIN 28.1 pg (25-34); MEAN CORPUSCULAR HGB CONC 34.6 g/dl (32-36); MEAN PLATELET VOLUME 10.8 fL (7.4-10.4); PLATELET COUNT 50 K/uL (130-400); RED BLOOD COUNT 2.81 M/uL (4.2-5.4); WHITE BLOOD COUNT 0.69 K/uL (4.8-10.8)
[2017-06-11 07:19] LABS: BUN/CREATININE RATIO 24.2 (10-20); CREATININE 1.04 mg/dl (0.60-1.20); POTASSIUM 3.7 mmol/L (3.5-5.1)
[2017-06-11 07:35] LABS: COMPLETE YES; EOS % 5.8 %; GIANT PLATELETS 1+; MONO % 2.9 %; NEUT % 4.3 %
[2017-06-11] MEDS: FAMOTIDINE 20 MG TAB PO SCH ×2 (08:34→21:23)
[2017-06-11] MEDS: CARVEDILOL 6.25 MG TAB PO SCH ×2 (08:34→21:23)
[2017-06-11] MEDS: THEOPHYLLINE 300MG EXTENDED REL TAB PO SCH ×2 (08:35→21:24)
[2017-06-11] MEDS: SERTRALINE HCL 100 MG TAB PO SCH (08:35)
--- NOTE | 2017-06-11 08:36 | Hospitalist Progress Note ---
Hospitalist Progress Note Date of Service Jun 11, 2017. Subjective Pt evaluation today including: conversation w/ patient Pt denies any problems. No more loose stools since yesterday, juan j po, no N/V, no other concerns. COunts a little lower today Constitutional: No fever All Other Systems: Reviewed and Negative Objective Vital Signs Date Time Temp Pulse Resp B/P (MAP) Pulse Ox O2 Delivery O2 Flow Rate FiO2 06/11/17 07:19 37.4 82 20 94/53 (67) 98 06/11/17 05:13 37.5 75 20 96/59 (71) 98 Room Air 06/11/17 01:00 Room Air 06/10/17 23:28 36.7 78 16 96/56 (69) 95 06/10/17 19:23 37.2 83 17 93/51 (65) 98 Room Air 06/10/17 16:00 99 Room Air 06/10/17 14:44 37.2 86 18 110/70 (83) 95 Room Air 06/10/17 11:25 37.6 76 18 105/64 (78) 96 Room Air 06/10/17 11:12 Room Air Physical Exam General Appearance: WD/WN, no apparent distress Eyes: normal inspection, sclerae normal ENT: hearing grossly normal, pharynx normal Neck: trachea midline Respiratory/Chest: lungs clear, normal breath sounds, no respiratory distress, no accessory muscle use Cardiovascular: regular rate, rhythm, no edema, no murmur Abdomen: normal bowel sounds, non tender, soft, no organomegaly Extremities: non-tender, normal inspection, no pedal edema, no calf tenderness Neurologic/Psychiatric: alert, normal mood/affect, oriented x 3 Skin: normal color, warm/dry, no rash Laboratory Results Last 24 Hours Test 06/10/17 11:22 06/10/17 16:20 06/10/17 20:14 06/11/17 05:57 Bedside Glucose 150 mg/dl 130 mg/dl 210 mg/dl White Blood Count 0.69 K/uL Red Blood Count 2.81 M/uL Hemoglobin 7.9 g/dL Hematocrit 22.8 % Mean Corpuscular Volume 81.1 fL Mean Corpuscular Hemoglobin 28.1 pg Mean Corpuscular Hemoglobin Concent 34.6 g/dl Platelet Count 50 K/uL Mean Platelet Volume 10.8 fL Neutrophils (%) (Auto) 4.3 % Lymphocytes (%) (Auto) 87.0 % Monocytes (%) (Auto) 2.9 % Eosinophils (%) (Auto) 5.8 % Basophils (%) (Auto) 0.0 % Neutrophils # (Auto) 0.03 K/uL Lymphocytes # (Auto) 0.60 K/uL Monocytes # (Auto) 0.02 K/uL Eosinophils # (Auto) 0.04 K/uL Basophils # (Auto) 0.00 K/uL RDW Standard Deviation 41.9 fL RDW Coefficient of Variation 14.6 % Immature Granulocyte % (Auto) 0.0 % Immature Granulocyte # (Auto) 0.00 K/uL Giant Platelets 1+ Sodium Level 135 mmol/L Potassium Level 3.7 mmol/L Chloride Level 108 mmol/L Carbon Dioxide Level 19 mmol/L Anion Gap 8.0 mmol/L Blood Urea Nitrogen 25 mg/dl Creatinine 1.04 mg/dl Est Creatinine Clear Calc Drug Dose 54.7 ml/min Estimated GFR () 62.2 Estimated GFR (Non- 53.6 BUN/Creatinine Ratio 24.2 Random Glucose 95 mg/dl Calcium Level 8.0 mg/dl Test 06/11/17 07:41 Bedside Glucose 106 mg/dl Assessment and Plan Pt is a 71 y/o F hx COPD, HTN, LE edema, CKD III, DMII - diagnosed with NSCLC following incidental discovery of a RUL mass 03/03. CA has metastasized to lymph nodes. The pt has received 3 cycles of chemotherapy thus far. She presents with acute onset of nausea, vomiting, diarrhea and epigastric abdominal discomfort beginning the morning prior to admission. She spiked a fever within 24 hrs after admission. Admitted for intractable N/V, diarrhea, and Neutropenic fever. Intractable nausea and vomiting, diarrhea, abd pain/NonAnion Gap Metabolic Acidosis -N/V resolved after 1 dose of Reglan in ER given. Diarrhea now also resolved. May be related to Chemo or viral gastroenteritis. C. diff and Stool culture both negative. HCO3 low but stable at 19 secondary to GI losses -encouraged plenyy of po fluids, she has Gatorade at bedside -tolerating reg diet -continue supportive care -follow PRP but expect improvement in electrolytes by tomorrow Neutropenic Fever-pancytopenia related to Chemo, clement currently as per Oncology but expect counts to start rising hopefully tomorrow. Received Neulasta as outpt. Does NOT have a port. ANC 500 on admission--> 440 ->60--> 30 today Hgb down to 7.9 from 10.4, some dilutional effect as well Plts dropped to 50k from 139k UA negative, could be from viral gastroenteritis vs bacteremia, no other clear symptoms of source. 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, was 1.58 on admission, now down to 1.09 with IVFs -continue to hold Lasix, lisinopril -follow PRP -avoid nephrotoxins -renally dose all meds NSCLC with LN mets-receiving chemo currently -Appreciate Oncology consultation -ok to dc dexamethasone-was only to be given through the day after chemo -f/u as outpt with Oncology as schedule after dc DMII -last HgbA1C 6.2% in 03/12/17 -hold Januvia here -SSI, accuchecks COPD - no evidence of acute exacerbation - -cont prescribed inhalers, Theophylline HTN - BPs stable to low -continue to hold Lasix and Lisinopril owing to dehydration and low BPs -continue Coreg with hold parameters Depression-stable -continue sertraline Proph- SCDs given dropping platelets, Pepcid for GI proph Dispo-possibly to home in 1-2 days
--- NOTE | 2017-06-11 12:13 | Hematology/Oncology Prog Note ---
Hematology/Onc Progress Note Date of Service Jun 11, 2017. Diagnoses Pancytopenia secondary to chemotherapy. History of lung adenocarcinoma Medications Medications Administered Medications (Trade) Dose Ordered Sig/Jennifer Route Start Time Stop Time Status Last Admin Dose Admin Metoclopramide HCl (Reglan Inj) 10 mg NOW STAT IV 06/07/17 21:41 06/07/17 21:44 DC 06/07/17 21:54 10 MG Sodium Chloride 1,000 ml @ 999 mls/hr Q1H1M STAT IV 06/07/17 21:41 06/07/17 22:41 DC 06/07/17 22:20 999 MLS/HR Sodium Chloride 1,000 ml @ 125 mls/hr Q8H STAT IV 06/07/17 21:41 06/08/17 00:11 DC 06/07/17 22:21 125 MLS/HR Acetaminophen (Tylenol Tab) 650 mg Q4H PRN PO 06/08/17 00:15 07/08/17 00:14 06/09/17 10:30 650 MG Sodium Chloride 1,000 ml @ 100 mls/hr Q10H IV 06/08/17 01:00 06/08/17 20:59 DC 06/08/17 08:14 100 MLS/HR Carvedilol (Coreg Tab) 6.25 mg BID PO 06/08/17 08:00 07/08/17 08:59 06/11/17 08:34 6.25 MG Dexamethasone (Decadron Tab) 4 mg BID PO 06/08/17 08:00 06/09/17 15:32 DC 06/09/17 07:54 4 MG Famotidine (Pepcid Tab) 20 mg BID PO 06/08/17 08:00 07/08/17 08:59 06/11/17 08:34 20 MG Albuterol/ Ipratropium (Combivent Respimat Inh) 1 puffs Q4H PRN INH 06/08/17 00:15 07/08/17 00:14 06/08/17 11:26 1 PUFFS Sertraline HCl (Zoloft Tab) 100 mg QAM PO 06/08/17 08:00 07/08/17 08:59 06/11/17 08:35 100 MG Theophylline (Ho-Dur Extended Rel Tab) 600 mg BID PO 06/08/17 08:00 07/08/17 08:59 06/11/17 08:35 600 MG Insulin Aspart (novoLOG ASPART) SLIDING SCALE G... ACHS SC 06/08/17 01:00 07/08/17 00:59 06/10/17 21:30 2 UNITS Enteral Nutritional Formula (Boost Glucose Control) 1 can TIDM PO 06/08/17 17:00 06/11/17 10:01 DC 06/10/17 17:00 1 CAN Cefepime HCl 2000 mg/Syringe 20 ml @ 5 mls/min Q8H IV 06/09/17 10:00 06/12/17 09:59 06/11/17 10:14 5 MLS/MIN Subjective Continues to state this is just not feels well. Her major complaint is diarrhea. She denies any blood in stool. Previous C. difficile toxin testing was negative Review of Systems: Constitutional: Negative for night sweats, or fever Eyes: Negative for event change of vision ENT: Negative for epistaxis, nasal discharge, sore throat, or deafness Cardiovascular: Negative for chest pain, palpitations, dizziness, diaphoresis Respiratory: Negative for new shortness of breath,hemoptysis, or purulent cough Gastrointestinal: Negative for hematemesis, melena, nausea, vomiting, or dyspepsia Integumentary (skin): Negative for rash or jaundice discoloration Genitourinary: Negative for urinary frequency, hematuria, or dysuria Neurological: Negative for weakness, seizure activity, headache, or dizziness Lymphatic/Hematologic: Negative for petechiae, bleeding or new adenopathy Musculoskeletal: Negative for new joint or back pain Allergic/Immunologic: Negative for unusual rash or pruritis. Vital Signs Vital Signs Past 12 Hours Date Time Temp Pulse Resp B/P (MAP) Pulse Ox O2 Delivery O2 Flow Rate FiO2 06/11/17 11:09 37.2 81 18 92/55 (67) 96 Room Air 06/11/17 10:40 98 Room Air 06/11/17 07:19 37.4 82 20 94/53 (67) 98 06/11/17 05:13 37.5 75 20 96/59 (71) 98 Room Air 06/11/17 01:00 Room Air Physical Exam Constitutional: vitals are stable. Overall spirits seem better today Eyes: Eyes are YANNI EOMI without conjuctival erythema or icterus. ENT: External examination was negative for masses. Neck: Negative for masses or palpable thyromegaly Respiratory: Lung sounds were generally clear bilaterally Cardiovascular: Heart was RRR without significant murmur, gallops aoe rubs Gastrointestinal: No palpable hepatic or splenomegaly. The abdomen was soft however there was some tenderness in various quadrants with moderate to deep palpation bowel sounds were slightly increased throughout. Lymphatic system: there was no palpable peripheral lymphadenopathy Musculoskeletal System: The musculoskeletal system seemed concordant with age. Skin: The skin was negative for jaundice. Neurologic exam: The exam was negative for any focal findings. Deep tendon reflexes were equal and symmetrical. Psychiatric exam: Was essentially negative with normal mood and effect. Breast exam: Not done Extremities: Negative for eddema. Laboratory Last 24 Hours Test 06/10/17 16:20 06/10/17 20:14 06/11/17 05:57 06/11/17 07:41 Bedside Glucose 130 mg/dl 210 mg/dl 106 mg/dl White Blood Count 0.69 K/uL Red Blood Count 2.81 M/uL Hemoglobin 7.9 g/dL Hematocrit 22.8 % Mean Corpuscular Volume 81.1 fL Mean Corpuscular Hemoglobin 28.1 pg Mean Corpuscular Hemoglobin Concent 34.6 g/dl Platelet Count 50 K/uL Mean Platelet Volume 10.8 fL Neutrophils (%) (Auto) 4.3 % Lymphocytes (%) (Auto) 87.0 % Monocytes (%) (Auto) 2.9 % Eosinophils (%) (Auto) 5.8 % Basophils (%) (Auto) 0.0 % Neutrophils # (Auto) 0.03 K/uL Lymphocytes # (Auto) 0.60 K/uL Monocytes # (Auto) 0.02 K/uL Eosinophils # (Auto) 0.04 K/uL Basophils # (Auto) 0.00 K/uL RDW Standard Deviation 41.9 fL RDW Coefficient of Variation 14.6 % Immature Granulocyte % (Auto) 0.0 % Immature Granulocyte # (Auto) 0.00 K/uL Giant Platelets 1+ Sodium Level 135 mmol/L Potassium Level 3.7 mmol/L Chloride Level 108 mmol/L Carbon Dioxide Level 19 mmol/L Anion Gap 8.0 mmol/L Blood Urea Nitrogen 25 mg/dl Creatinine 1.04 mg/dl Est Creatinine Clear Calc Drug Dose 54.7 ml/min Estimated GFR () 62.2 Estimated GFR (Non- 53.6 BUN/Creatinine Ratio 24.2 Random Glucose 95 mg/dl Calcium Level 8.0 mg/dl Test 06/11/17 11:39 Bedside Glucose 153 mg/dl Assessment & Plan Pancytopenia secondary to chemotherapy. She is afebrile. Blood cultures are negative. C. difficile toxin was negative. Diarrhea is a major complaint. No blood in her stool. I suspect this is colitis secondary to chemotherapy. She remains pancytopenic and supportive care continues.Can use imodium for loose stools.
[2017-06-11] MEDS: BOOST GLUCOSE CONTROL PO SCH ×2 (12:25→17:00)
[2017-06-11] MEDS ORDERED: LOPERAMIDE HCL 2 MG CAP PO PRN (13:45)
[2017-06-12] VITALS (11 sets, daily range): BP systolic 95–113; BP diastolic 53–72; PULSE 69–81; TEMP 36.7–37.4; O2SAT 95–98; Ht 167.6 cm; Wt 87.5 kg
[2017-06-12] MEDS: CEFEPIME IV 2,000 MG in SYRINGE 7.5 ML IV SCH ×3 (02:39→17:53)
[2017-06-12] MEDS: INSULIN ASPART 100 UNITS/ML 3 ML PEN SC SCH ×3 (06:30→16:30)
[2017-06-12 06:57] LABS: HEMATOCRIT 22.7 % (37-47); MEAN CELL VOLUME 81.4 fL (80-100); MEAN CORPUSCULAR HEMOGLOBIN 27.6 pg (25-34); MEAN CORPUSCULAR HGB CONC 33.9 g/dl (32-36); MEAN PLATELET VOLUME 10.6 fL (7.4-10.4); PLATELET COUNT 34 K/uL (130-400); RED BLOOD COUNT 2.79 M/uL (4.2-5.4)
[2017-06-12 07:07] LABS: BUN/CREATININE RATIO 21.3 (10-20); CALCIUM 8.1 mg/dl (8.5-10.1); CREATININE 1.05 mg/dl (0.60-1.20); POTASSIUM 3.9 mmol/L (3.5-5.1)
[2017-06-12 07:22] LABS: COMPLETE YES; IG% 2.5 %; LARGE PLATELETS 1+; LYMPH % 87.5 %; MONO % 3.8 %; NEUT % 1.2 %; OVALOCYTES 1+
[2017-06-12] MEDS: BOOST GLUCOSE CONTROL PO SCH ×3 (08:00→17:00)
[2017-06-12] MEDS: CARVEDILOL 6.25 MG TAB PO SCH (08:00)
[2017-06-12] MEDS ORDERED: SODIUM CHLORIDE 0.9% 1000ML 1,000 ML IV SCH (08:30)
[2017-06-12] MEDS: SERTRALINE HCL 100 MG TAB PO SCH (08:57)
[2017-06-12] MEDS: THEOPHYLLINE 300MG EXTENDED REL TAB PO SCH (08:58)
[2017-06-12] MEDS: FAMOTIDINE 20 MG TAB PO SCH (08:58)
[2017-06-12] MEDS ORDERED: FURO20TA PO (13:19)
[2017-06-12] MEDS ORDERED: LISI-729 PO (13:19)
--- NOTE | 2017-06-12 13:25 | Discharge Instructions ---
Discharge Instructions Date of Service Jun 12, 2017. Admission Reason for Admission: Nausea,Vomiting,Diarrhea, Neutropenic fever Discharge Discharge Diagnosis / Problem: Nausea,Vomiting,Diarrhea, Neutropenic fever Discharge Goals Goal(s): Improve disease control, Diagnostic testing, Therapeutic intervention Activity Recommendations Activity Limitations: resume your previous activity . Instructions / Follow-Up Instructions / Follow-Up You were admitted with nausea, vomiting, and diarrhea likely due to your recent chemotherapy. You developed a fever here and because of your low blood counts, you were placed on antibiotics as a preventative. You did not grow out any bacteria in your blood cultures and your diarrhea resolved. You were given a blood transfusion as well. Dr. Chan's office should be contacting you on Tuesday to tell you when to come in for repeat blood work to make sure your blood counts are improving. If you develop a fever greater than 100.4 at home, you should contact your Oncologist right away and await further instructions. Your blood pressure was low in the hospital and your lisinopril and lasix ( furosemide) pills were not given. You should remain OFF of these medications until your doctor says it's ok to go back on them. Current Hospital Diet Patient's current hospital diet: Full Liquid Diet, Diabetes Type 2 Diet Discharge Diet Recommended Diet: Diabetes Type 2 Diet Procedures Procedures Performed: Chest xray CT abdomen/pelvis Pending Studies Studies pending at discharge: yes List of pending studies: Final Blood culture results Medical Emergencies . Who to Call and When: Medical Emergencies: If at any time you feel your situation is an emergency, please call 911 immediately. . Non-Emergent Contact Non-Emergency issues call your: Primary Care Provider, Oncologist Call Non-Emergent contact if: temperature is above 100.5, your pain is not controlled, your pain is worsening, your pain is unusual for you, your pain is concerning you, you have any medication questions . . "Provider Documentation" section prepared by Natasha Manriquez. . VTE Core Measure Inpt VTE Proph given/why not?: SCD's
[2017-06-12] MEDS ORDERED: ACETAMINOPHEN 325 MG TAB PO ONE (13:30)
--- NOTE | 2017-06-13 19:02 | Discharge Summary ---
Discharge Summary Date of Service Jun 12, 2017. Discharge Summary Admission Date: Jun 09, 2017 at 15:08 Discharge Date: Jun 12, 2017 Discharge Disposition: Home Principal Diagnosis: N/V/D, Neutropenic fever Problems/Secondary Diagnoses: COPD HTN Peripheral edema CKD III DMII NSCLC NonAnion Gap Metabolic Acidosis related to GI losses Pancytopenia Acute renal insufficiency on CKD Stage III Depression Procedures: CXR CT Abd/pel Consultations: Oncology Medication Reconciliation Changed Medications: Furosemide (Lasix) 20 Mg Tab 20 MG PO QAM for 1 Day, TAB (Medication details modified) HOLD-DO NOT TAKE UNTIL YOUR MD SAYS IT'S OK TO RESTART Lisinopril (Zestril) 5 Mg Tab 5 MG PO QPM for 1 Day, TAB (Medication details modified) HOLD-DO NOT TAKE UNTIL YOUR MD SAYS IT'S OK TO RESTART Continued Medications: Carvedilol (Coreg) 6.25 Mg Tab 6.25 MG PO BID, TAB Dexamethasone (Decadron) 4 Mg Tab 4 MG PO BID UD TAKE 1 TAB BID STARTING THE DAY BEFORE TREATMENT, AND DAY AFTER Famotidine (Pepcid) 20 Mg Tab 20 MG PO BID, TAB Hydrocodone/Acetaminophen 10MG/325MG ([place] 10MG/325MG) Tab 1 TAB PO BID PRN for Pain, TAB PRN PAIN Ipratropium-Albuterol (Combivent Respimat) 1 Aer Aer 1 PUFFS INH Q4H PRN for Shortness of Breath, INH Ondansetron Hcl (Zofran) 4 Mg Tab 4 MG PO Q8 PRN for Nausea, TAB Sertraline Hcl (Zoloft) 100 Mg Tab 100 MG PO QAM, TAB Sitagliptin (Januvia) 50 Mg Tab 50 MG PO QAM, TAB Theophylline Ext Rel (Ho-Dur Ext Rel) 300 Mg Tabcr 600 MG PO BID, TAB Discharge Exam Pt afebrile, denies any problems. No further diarrhea after taking one dose of imodium yesterday. No N/V and is eating normally. Discussed case with Dr. Chan today. Plan for 1 unit PRBCs and then ok to dc home with close f/u with Oncology for repeat CBC. Blood cultures remain negative. No bleeding anywhere Complete ROS otherwise negative Physical Exam Vitals reviewed General Appearance: WD/WN, no apparent distress Eyes: normal inspection, sclerae normal ENT: hearing grossly normal, pharynx normal Neck: trachea midline Respiratory/Chest: lungs clear, normal breath sounds, no respiratory distress, no accessory muscle use Cardiovascular: regular rate, rhythm, no edema, no murmur Abdomen: normal bowel sounds, non tender, soft, no organomegaly Extremities: non-tender, normal inspection, no pedal edema, no calf tenderness Neurologic/Psychiatric: alert, normal mood/affect, oriented x 3 Skin: normal color, warm/dry, no rash Hospital Course Pt is a 71 y/o F hx COPD, HTN, LE edema, CKD III, DMII - diagnosed with NSCLC following incidental discovery of a RUL mass 03/03. CA has metastasized to lymph nodes. The pt has received 3 cycles of chemotherapy thus far. She presents with acute onset of nausea, vomiting, diarrhea and epigastric abdominal discomfort beginning the morning prior to admission. She spiked a fever within 24 hrs after admission. Admitted for intractable N/V, diarrhea, and Neutropenic fever. Intractable nausea and vomiting, diarrhea, abd pain/NonAnion Gap Metabolic Acidosis -N/V resolved after 1 dose of Reglan in ER given. Diarrhea now also resolved. May be related to Chemo or viral gastroenteritis. C. diff and Stool culture both negative. HCO3 low but stable at 19 secondary to GI losses -tolerating reg diet -continue supportive care -Imodium prn diarrhea Neutropenic Fever-pancytopenia related to Chemo, clement currently as per Oncology but expect counts to start rising hopefully tomorrow. Received Neulasta as outpt. Does NOT have a port. ANC 500 on admission--> 440 ->60--> 30- > 10 today Hgb down to 7.7 from 10.4,--> transfuse 1 unit PRBCs today and then ok to discharge as per Oncology Plts dropped to 34k from 139k, no evidence of bleeding UA negative, could be from viral gastroenteritis vs bacteremia, no other clear symptoms of source. 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 on admission, now down to 1.05 with IVFs -continue to hold Lasix, lisinopril on dc, restart only if BPs high -follow PRP as outpt -avoid nephrotoxins -renally dose all meds NSCLC with LN mets-receiving chemo currently -Appreciate Oncology consultation -f/u as outpt with Oncology as schedule after dc DMII -last HgbA1C 6.2% in 03/12/17 -restart Januvia on dc -SSI, accuchecks COPD - no evidence of acute exacerbation - -cont prescribed inhalers, Theophylline HTN - BPs stable to low -continue to hold Lasix and Lisinopril owing to dehydration and low BPs -continue Coreg Depression-stable -continue sertraline Discharged to home Total Time Spent: Greater than 30 minutes This includes examination of the patient, discharge planning, medication reconciliation, and communication with other providers. Discharge Instructions Please refer to the electronic Patient Visit Report (Discharge Instructions) for additional information. Follow-Up Oncology within 1 week Repeat CBC within 1 week Additional Copies To Jarod Chan D.O.; Arthur Cruz M.D.
== END 2017-06-12 18:54 | disposition home or self-care (01) | DRG 809 ==
LOC: EDBD 21:39 → C.EDB 21:42 → C.4E 06-08 00:07 → ENRESERV 06-08 00:16 → OBSVTOIN 06-09 15:08
PROVIDERS: ADMIT Internal Medicine; ATTEND Family Medicine
DX: D61.811 Other drug-induced pancytopenia (principal); C34.91 Malignant neoplasm of unspecified part of right bronchus or lung; C77.1 Secondary and unspecified malignant neoplasm of intrathoracic lymph nodes; E87.2 Acidosis; K52.9 Noninfective gastroenteritis and colitis, unspecified; R11.0 Nausea; E86.0 Dehydration; E11.9 Type 2 diabetes mellitus without complications; J44.9 Chronic obstructive pulmonary disease, unspecified; Z80.1 Family history of malignant neoplasm of trachea, bronchus and lung; Z83.3 Family history of diabetes mellitus; F17.200 Nicotine dependence, unspecified, uncomplicated; N18.3 Chronic kidney disease, stage 3 (moderate); Z88.0 Allergy status to penicillin; Y92.019 Unspecified place in single-family (private) house as the place of occurrence of the external cause; A08.4 Viral intestinal infection, unspecified

== ENCOUNTER → 2017-09-14 | Outpatient (CLI) | payer OTHER ==
[~2017-09-14] MED LIST changes: +DXM/4 PO; +OPTIRAY 320 IV PRN
--- NOTE | 2017-09-14 12:13 | DIAGNOSTIC IMAGING REPORT ---
(CHEST) THORAX WITH CLINICAL HISTORY: 72 years-old Female presenting with CANCER LUNG NON SMALL CELL C34.10. TECHNIQUE: Multidetector CT imaging of the chest was performed after the administration of intravenous contrast. IV contrast: 65 mL of Optiray 320. A dose lowering technique was used consistent with the principles of ALARA (as low as reasonably achievable). COMPARISON: 03/12/2016 and PET/CT from 02/28/[address] from 10/28/[address] DOSE (mGy.cm): The estimated cumulative dose is 977.49 mGy.cm. FINDINGS: Bottom Steep Tender topogram: Cholecystectomy clips. On soft tissue windows, normal thyroid and thoracic inlet. No axillary, supraclavicular, hilar, or mediastinal lymphadenopathy. No pathologically enlarged lymph nodes at the sites of prior lymphadenopathy anterior to the SVC at the level of the aortopulmonary window and immediately superior to the right pulmonary artery at the level of the right mainstem bronchus. Atherosclerosis of the aorta. Normal heart size. Coronary artery calcification. No pericardial or pleural effusion. Nodular thickening of the bilateral adrenal glands, left greater than right, unchanged since 02/28/2017 PET/CT, which at that time was photopenic and most suggestive of benign adenomas and/or hyperplasia. On lung windows, post treatment changes of the spiculated right upper lobe mass, which now demonstrates central cavitation. Spiculation and surrounding architectural distortion noted. This mass measures 2.1 cm in maximal diameter, previously 2.9 cm and without cavitation. This mass appears to abut the pleura along the right major fissure. This does not extend to the hilum. Partial obstruction of the transiting subsegmental bronchi. Solid triangular fissural 4 mm nodule at the left apex (series 4 image 59), unchanged since 03/12/2016 consistent with a benign etiology. Minimal bandlike opacities in the right middle lobe and lingula likely scarring. No new nodule. Central airways patent though there is mild bronchial wall thickening primarily in the right upper lobe. On bone windows, degenerative changes of the spine. IMPRESSION: 1. Post treatment changes of the right upper lobe mass, which now demonstrates cavitation and overall decrease in size. Spiculation and architectural distortion likely in part posttreatment change. No new nodule. Resolution of lymphadenopathy. Electronically signed by: Huey Joshi M.D. 09/14/2017 12:12 PM Dictated Date/Time: 09/14/2017 12:02 PM
--- NOTE | 2017-09-14 12:13 | DIAGNOSTIC IMAGING REPORT ---
ABD/PELVIS IV AND ORAL CONT CT DOSE: HISTORY: Lung carcinoma CANCER LUNG NON SMALL CELL C34.10 TECHNIQUE: Multiaxial CT images of the abdomen and pelvis were performed following the use of intravenous and oral contrast. A dose lowering technique was utilized adhering to the principles of ALARA. COMPARISON STUDY: 06/07/2017 FINDINGS: Lung bases remain clear. Liver is uniform throughout. Prior cholecystectomy. Spleen and pancreas enhance uniformly. Renal cysts bilaterally unchanged from the prior exam. No evidence for renal hydronephrosis. Atherosclerotic change abdominal aorta as well as iliac vasculature unchanged. Stable hyperplastic change of the adrenals. Bowel pattern is considered nonobstructive. Findings of chronic sigmoid diverticulosis. No evidence for acute diverticulitis. No significant abdominal pelvic or inguinal adenopathy. IMPRESSION: No significant abnormality identified within the abdomen or pelvis. Chronic sigmoid diverticulosis. Prior cholecystectomy. Stable bilateral renal cysts. Stable bilateral adrenal hyperplasia. The above report was generated using voice recognition software. It may contain grammatical, syntax or spelling errors. Electronically signed by: Uriel Ji M.D. 09/14/2017 12:12 PM Dictated Date/Time: 09/14/2017 12:06 PM
== END | disposition home or self-care (01) ==
LOC: C.CTS 09:51
PROVIDERS: ATTEND Nurse Practitioner Family
DX: C34.10 Malignant neoplasm of upper lobe, unspecified bronchus or lung (principal); K57.30 Diverticulosis of large intestine without perforation or abscess without bleeding; N28.1 Cyst of kidney, acquired; Z90.49 Acquired absence of other specified parts of digestive tract

== ENCOUNTER 2017-10-19 15:24 | Inpatient (IN) | payer OTHER ==
[~2017-10-19] VITALS: Ht 167.6 cm; Wt 88.4 kg
[~2017-10-19 15:24] MED LIST changes: -OPTIRAY 320 IV PRN
[2017-10-19] MEDS ORDERED: SODIUM CHLORIDE 0.9% 1000ML 1,000 ML IV STA (15:39)
[2017-10-19] MEDS ORDERED: ONDANSETRON INJ 2 MG/ML 2 ML VIAL IV STA (15:39)
[2017-10-19] MEDS ORDERED: RANI150T85 PO (15:45)
--- NOTE | 2017-10-19 15:45 | EMERGENCY ROOM VISIT NOTE ---
History First contact with patient: 15:15 Chief Complaint: NAUSEA Stated Complaint: VOMITING History of Present Illness The patient is a 72 year old female who presents to the Emergency Room with complaints of dysphagia nausea and vomiting. The patient has a history of lung cancer. She was treated recently with chemotherapy. She has noticed over the last few days she has been having difficulty swallowing. She does have painful swallowing but is able to swallow pudding as well as liquids without too much difficulty. She has been taking Zofran with good results. She also complains of a headache. She has a history of lung cancer. She is unsure if she has any metastatic spread to the brain. She denies any recent falls. She denies any fevers or chills. She does have crampy abdominal pain as well as abdominal distention. She denies having any chest pain or shortness of breath more than usual. She has not started any new medications. Review of Systems See HPI for pertinent positives & negatives. A total of 10 systems reviewed and were otherwise negative. Past Medical/Surgical History Medical Problems: (1) Arthritis (2) Asthma (3) Benign hypertension (4) Cholecystectomy (5) COPD (chronic obstructive pulmonary disease) (6) Diabetes (7) Diabetes mellitus (8) Intractable nausea and vomiting (9) Lung cancer (10) Neutropenic fever (11) Pulmonary emphysema Family History FH: HTN (hypertension) FH: cancer FH: diabetes mellitus FH: heart disease FH: lung cancer FH: lung disease FHx: gallbladder disease Social History Smoking Status: Former Smoker Drug Use: none Marital Status: Housing Status: lives with family Occupation Status: retired Current/Historical Medications Scheduled Carvedilol (Coreg), 6.25 MG PO BID Folic Acid (Folvite), 1 MG PO DAILY Furosemide (Lasix), 20 MG PO DAILY Lisinopril (Zestril), 5 MG PO QPM Ondasetron Odt (Zofran Odt), 4 MG SL Q6H Ranitidine (Zantac), 150 MG PO BID Sertraline Hcl (Zoloft), 100 MG PO QAM Sitagliptin (Januvia), 50 MG PO QAM Theophylline Ext Rel (Ho-Dur Ext Rel), 600 MG PO BID Scheduled PRN Hydrocodone/Acetaminophen 10MG/325MG ([place] 10MG/325MG), 1 TAB PO BID PRN for Pain Ipratropium-Albuterol (Combivent Respimat), 1 PUFFS INH Q4H PRN for Shortness of Breath Ondansetron Hcl (Zofran), 8 MG PO Q8H PRN for Nausea Physical Exam Vital Signs Date Time Temp Pulse Resp B/P (MAP) Pulse Ox O2 Delivery O2 Flow Rate FiO2 10/19/17 16:49 73 10/19/17 16:47 74 19 115/67 94 Room Air 10/19/17 16:01 75 20 111/71 94 Room Air 10/19/17 15:25 94 Room Air 10/19/17 15:25 94 Room Air 10/19/17 15:25 36.7 77 18 117/73 94 Room Air Physical Exam GENERAL: Patient is awake and alert. She is mildly anxious appearing. EYES: The conjunctivae are clear. The pupils are round and reactive. EARS, NOSE, MOUTH AND THROAT: The nose is without any evidence of any deformity. Mucous members are dry. NECK: The neck is nontender and supple. RESPIRATORY: Diminished breath sounds were noted throughout with scattered rhonchi. There is no tachypnea or conversational dyspnea. CARDIOVASCULAR: Regular rate and rhythm noted there no murmurs rubs or gallops normal S1 normal S2 GASTROINTESTINAL: The abdomen is soft. Bowel sounds are present in all quadrants. Abdomen is nontender MUSCULOSKELETAL/EXTREMITIES: There is no evidence of gross deformity full range of motion is noted in the hips and shoulders SKIN: There is no obvious evidence of any rash. There are no petechiae, pallor or cyanosis noted. NEUROLOGIC: Patient is awake alert and oriented x3. Medical Decision & Procedures Laboratory Results 10/19/17 15:53 Red Blood Count 3.34, Mean Corpuscular Volume 91.9, Mean Corpuscular Hemoglobin 31.7, Mean Corpuscular Hemoglobin Concent 34.5, Mean Platelet Volume 9.1 10/19/17 15:53 Test 10/19/17 15:53 White Blood Count 2.90 K/uL (4.8-10.8) Red Blood Count 3.34 M/uL (4.2-5.4) Hemoglobin 10.6 g/dL (12.0-16.0) Hematocrit 30.7 % (37-47) Mean Corpuscular Volume 91.9 fL (80-100) Mean Corpuscular Hemoglobin 31.7 pg (25-34) Mean Corpuscular Hemoglobin Concent 34.5 g/dl (32-36) Platelet Count 96 K/uL (130-400) Mean Platelet Volume 9.1 fL (7.4-10.4) RDW Standard Deviation 52.7 fL (36.4-46.3) RDW Coefficient of Variation 15.6 % (11.5-14.5) Neutrophils % (Manual) 69.3 % Lymphocytes % (Manual) 11.4 % Variant Lymphocytes % (manual) 14.9 % Monocytes % (Manual) 3.5 % Eosinophils % (Manual) 0.9 % Neutrophils # (Manual) 2.01 K/uL (1.4-6.5) Total Absolute Neutrophils 2.01 K/uL (1.4-6.5) Lymphocytes # (Manual) 0.33 K/uL (1.2-3.4) Absolute Variant Lymphocytes 0.43 K/uL Total Absolute Lymphocytes 0.76 K/uL (1.2-3.4) Monocytes # (Manual) 0.10 K/uL (0.11-0.59) Eosinophils # (Manual) 0.03 K/uL (0-0.5) Platelet Estimate DECREASED Prothrombin Time 10.0 SECONDS (9.0-12.0) Prothromb Time International Ratio 1.0 (0.9-1.1) Activated Partial Thromboplast Time 26.0 SECONDS (21.0-31.0) Partial Thromboplastin Ratio 1.0 Anion Gap 9.0 mmol/L (3-11) Est Creatinine Clear Calc Drug Dose 41.1 ml/min Estimated GFR () 44.2 Estimated GFR (Non- 38.2 BUN/Creatinine Ratio 23.8 (10-20) Calcium Level 9.5 mg/dl (8.5-10.1) Magnesium Level 2.0 mg/dl (1.8-2.4) Total Bilirubin 0.7 mg/dl (0.2-1) Direct Bilirubin 0.1 mg/dl (0-0.2) Aspartate Amino Transf (AST/SGOT) 22 U/L (15-37) Alanine Aminotransferase (ALT/SGPT) 18 U/L (12-78) Alkaline Phosphatase 82 U/L (45-117) Troponin I < 0.015 ng/ml (0-0.045) Total Protein 7.6 gm/dl (6.4-8.2) Albumin 3.4 gm/dl (3.4-5.0) Lipase 217 U/L (73-393) Theophylline Level 36 mcg/ml (10-20) Medications Administered Medications (Trade) Dose Ordered Sig/Jennifer Route Start Time Stop Time Status Last Admin Dose Admin Ondansetron HCl (Zofran Inj) 4 mg NOW STAT IV 10/19/17 15:39 10/19/17 15:40 DC 10/19/17 16:00 4 MG Sodium Chloride 1,000 ml @ 999 mls/hr Q1H1M STAT IV 10/19/17 15:39 10/19/17 16:39 DC 10/19/17 16:00 999 MLS/HR ECG Per My Interpretation Indication: vomiting Rate (beats per minute): 75 Rhythm: normal sinus Findings: no acute ischemic change, no ectopy Change: no significant change (06/07/2017) Medical Decision Prior records/ancillary studies reviewed. Triage Nursing notes reviewed. The patient's history was concerning for nausea, vomiting, diarrhea, and abdominal pain. Differential diagnosis: Etiologies such as gastroenteritis, food borne illness, infections, appendicitis , diverticulitis, inflammatory bowel disease, obstruction, GI bleed, biliary pathology, as well as others were entertained. The patient is a 72-year-old female who has a history of lung cancer who was recently treated with chemotherapy. She presents emergency department today with a few day history of nausea and vomiting. Every time she tries to eat she vomits. The patient did not have severe dehydration by her laboratory studies. Her vital signs were reviewed. The patient does not have an intracranial cause for her vomiting and her abdominal exam as well as abdominal imaging were noncontributory. I discussed patient's laboratory and radiographic studies with her. The patient was found to have an elevated theophylline level I am unsure if this is the cause of her symptoms. She was also found to have pancytopenia but I feel that this is likely related to her chemotherapy. I discussed her case with the covering oncologist. At this time they have agreed to evaluate the patient in the office for further evaluation. Otherwise she was encouraged to take a clear liquid diet and soft mechanical diet. She was also encouraged to continue using Zofran and hold her theophylline for the next few days until the level comes down in case this is the cause of the patient's symptoms. Otherwise she was encouraged to return the emergency department immediately if symptoms change worsen or the need arises. Consults Time Called: 165 Consulting Physician: Dr Grant for Dr Simon Returned Call: 1700 I reviewed the patient's laboratory and radiographic studies with him. At this time I feel the patient can follow-up as an outpatient. Dr. So has recommended follow-up appointment this week Impression Primary Impression: Dysphagia Additional Impressions: Vomiting Theophylline toxicity Pancytopenia Departure Information Prescriptions Ondasetron Odt (ZOFRAN ODT) 4 Mg Tab 4 MG SL Q6H for Nausea, #20 TAB Prov: Say Orozco, 10/19/17 Referrals Arthur Cruz M.D. (PCP) Patient Instructions My [facility] Problem Qualifiers Primary Impression: Dysphagia Dysphagia type: unspecified Qualified Codes: R13.10 - Dysphagia, unspecified Additional Impressions: Vomiting Vomiting type: unspecified Vomiting Intractability: non-intractable Nausea presence: with nausea Qualified Codes: R11.2 - Nausea with vomiting, unspecified
[2017-10-19] MEDS ORDERED: FOLI1TAB8 PO (15:46)
[2017-10-19] MEDS ORDERED: ONDA-170 PO (15:48)
[2017-10-19] MEDS ORDERED: FURO-85 PO (15:50)
[2017-10-19 16:10] LABS: HEMATOCRIT 30.7 % (37-47); HEMOGLOBIN 10.6 g/dL (12.0-16.0); MEAN CELL VOLUME 91.9 fL (80-100); MEAN CORPUSCULAR HEMOGLOBIN 31.7 pg (25-34); MEAN CORPUSCULAR HGB CONC 34.5 g/dl (32-36); RED CELL DISTRIBUTION WIDTH CV 15.6 % (11.5-14.5); RED CELL DISTRIBUTION WIDTH SD 52.7 fL (36.4-46.3)
[2017-10-19 16:29] LABS: ALBUMIN 3.4 gm/dl (3.4-5.0); AST/SGOT 22 U/L (15-37); BLOOD UREA NITROGEN 33 mg/dl (7-18); CALCIUM 9.5 mg/dl (8.5-10.1); CARBON DIOXIDE 22 mmol/L (21-32); CREATININE 1.37 mg/dl (0.60-1.20); GLUCOSE 131 mg/dl (70-99); LIPASE 217 U/L (73-393); POTASSIUM 3.8 mmol/L (3.5-5.1); SODIUM 136 mmol/L (136-145)
--- NOTE | 2017-10-19 16:31 | DIAGNOSTIC IMAGING REPORT ---
HEAD CT NONCONTRAST CT DOSE: 1642.85 mGy.cm HISTORY: Headache. Vomiting. TECHNIQUE: Multiaxial CT images of the head were performed without the use of intravenous contrast. Automated exposure control was utilized for this study. A dose lowering technique was utilized adhering to the principles of ALARA. Comparison: None. Findings: The paranasal sinuses and mastoid air cells are clear. The calvarium and skull base are intact. The ventricles and sulci are within normal limits. There is no mass, hematoma, midline shift, or acute infarct. Incidental note is made of a cavum septa pellucida. Impression: No acute intracranial abnormality. Electronically signed by: Ananda Segovia M.D. 10/19/2017 4:30 PM Dictated Date/Time: 10/19/2017 4:26 PM
[2017-10-19 16:32] LABS: MEAN PLATELET VOLUME 9.1 fL (7.4-10.4); PLATELET COUNT 96 K/uL (130-400)
[2017-10-19 16:34] LABS: ALKALINE PHOSPHATASE 82 U/L (45-117); ALT/SGPT 18 U/L (12-78); TOTAL PROTEIN 7.6 gm/dl (6.4-8.2)
--- NOTE | 2017-10-19 16:46 | DIAGNOSTIC IMAGING REPORT ---
CT SCAN OF THE ABDOMEN AND PELVIS WITHOUT IV CONTRAST CLINICAL HISTORY: Vomiting. COMPARISON STUDY: Abdominal CT dated 09/14/2017. TECHNIQUE: CT scan of the abdomen and pelvis is performed from the lung bases to the proximal femora. Images are reviewed in the axial, sagittal, and coronal planes. IV contrast was not administered for this examination as per the referring clinician. Note that the examination was performed in significantly suboptimal fashion without oral and IV contrast. A dose lowering technique was utilized adhering to the principles of ALARA. FINDINGS: Lung bases: The heart is top normal in size and without pericardial effusion. There are coronary artery calcifications. The lung bases are clear noting dependent atelectasis. There is a tiny hiatal hernia. Liver: The unenhanced liver is elongated, likely representing Camille's lobe variant anatomy. The liver is normal in contour and attenuation. There is mild central intrahepatic biliary ductal dilatation. Gallbladder: Surgically absent noting clips in the gallbladder fossa. Spleen: Normal in size and attenuation. Pancreas: The unenhanced pancreas is moderately atrophic and grossly unremarkable. Adrenal glands: Bilateral adrenal adenomas measuring up to 2.0 cm. Kidneys: The unenhanced kidneys are atrophic and without hydronephrosis. There are no renal calculi identified. Bilateral renal cysts measure up to 1.7 cm. Additional subcentimeter cortical hypodensities also likely represent cysts but are too small for definitive characterization. A 1.4 cm hyperdense cyst is seen in the right lower pole. Parapelvic cysts are noted on the right. Abdominal vasculature: The abdominal aorta is normal in course and caliber noting advanced atherosclerotic calcification. Bowel: There is advanced colonic diverticulosis without CT evidence of acute diverticulitis. No bowel obstruction is identified. The appendix is not identified. Peritoneum: There is no intraperitoneal free air or abdominal ascites. There is a small fat-containing umbilical hernia. Lymphadenopathy: None. Pelvic viscera: The bladder is normal as visualized. The uterus is surgically absent. No adnexal lesion is seen. Numerous phleboliths are noted in the pelvis. Skeletal structures: The skeletal structures are osteopenic. No lytic or blastic lesions are seen. IMPRESSION: 1. Significantly suboptimal examination without oral and IV contrast. 2. There are no acute infectious or inflammatory findings in the abdomen or pelvis. 3. Advanced colonic diverticulosis without CT evidence of acute diverticulitis. 4. Additional findings as above. Electronically signed by: Jaxon Felipe M.D. 10/19/2017 4:44 PM Dictated Date/Time: 10/19/2017 4:36 PM
[2017-10-19] MEDS ORDERED: ONDA4TAB10 SL (17:03)
--- NOTE | 2017-10-19 17:21 | DIAGNOSTIC IMAGING REPORT ---
SINGLE VIEW CHEST CLINICAL HISTORY: Atypical chest pain. FINDINGS: An AP, portable, upright chest radiograph is compared to study dated 06/07/2017 and correlated with chest CT dated 09/14/2017. The examination is degraded by portable technique and patient rotation. The cardiomediastinal silhouette is unremarkable. There is atherosclerotic calcification of the thoracic aorta. The pulmonary vasculature is noncongested. Emphysema and chronic interstitial thickening are similar to previous. There is mild elevation of the left hemidiaphragm with associated atelectasis. No airspace consolidation, large pleural effusion, or pneumothorax is seen. A right suprahilar density likely corresponds to patient's known right upper lobe lesion. The skeletal structures are osteopenic. The bony thorax is grossly intact. IMPRESSION: 1. Emphysematous change with no acute cardiopulmonary abnormality. 2. A right suprahilar density likely corresponds to patient's known right upper lobe lung lesion. This was much better assessed on the 09/14/[address] Electronically signed by: Jaxon Felipe M.D. 10/19/2017 5:20 PM Dictated Date/Time: 10/19/2017 5:18 PM
[2017-10-19] MEDS ORDERED: ALUMINUM/MAGNESIUM/SIMETH (MAALOX MAX) 30 ML UDC PO PRN (20:45)
[2017-10-19] MEDS ORDERED: ONDANSETRON 8 MG TAB PO PRN (20:45)
[2017-10-19] MEDS ORDERED: ACETAMINOPHEN 325 MG TAB PO PRN (20:45)
[2017-10-19] MEDS ORDERED: POLYETHYLENE (MIRALAX) 17 GM PACK PO PRN (20:45)
[2017-10-19] MEDS ORDERED: LEVALBUTEROL/IPRATROPIUM NEB INH PRN (20:45)
[2017-10-19] MEDS ORDERED: GLUCOSE 10 TABS/TUBE PO PRN (20:45)
[2017-10-19] MEDS ORDERED: GLUCOSE 40% GEL 15 GM TUBE PO PRN (20:45)
[2017-10-19] MEDS ORDERED: MAGNESIUM HYDROXIDE SUSP 30 ML UDC PO PRN (20:45)
[2017-10-19] MEDS ORDERED: DEXTROSE 50% 50 ML SYR IV PRN (20:45)
[2017-10-19] MEDS ORDERED: GLUCAGON FOR INJ 1 MG VIAL SQ PRN (20:45)
--- NOTE | 2017-10-19 20:47 | History and Physical ---
History & Physical Date & Time of Service: Oct 19, 2017 at 20:47 Chief Complaint: Vomiting Primary Care Physician: Arthur Cruz M.D. History of Present Illness Source: patient, family The patient is a 72-year-old female who presents to the emergency department with complaint of crampy abdominal pain, nausea and vomiting, with difficulty swallowing. Patient is presently being treated with chemotherapy for lung cancer. She reports that she thought her last chemotherapy was in August, where his family members reports it was at the end of September. She appears to be somewhat confused and fatigued. 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 (24) Yeast infection Family History FH: HTN (hypertension) FH: cancer FH: diabetes mellitus FH: heart disease FH: lung cancer FH: lung disease FHx: gallbladder disease Social History Smoking Status: Former Smoker Smokeless Tobacco Use: No Alcohol Use: none Drug Use: none Marital Status: Housing status: lives with family Occupational Status: retired Immunizations History of Influenza Vaccine: Unknown History of Tetanus Vaccine?: Unknown History of Pneumococcal: Unknown History of Hepatitis B Vaccine: Unknown Allergies Coded Allergies: Adhesives (Unverified Allergy, Unknown, PULLS SKIN OFF, 10/19/17) Penicillins (Unverified Allergy, Unknown, TONGUE SWELLING, 10/19/17) Azithromycin (Unverified Adverse Reaction, Unknown, NAUSEA, 10/19/17) Home Medications Scheduled Carvedilol (Coreg), 6.25 MG PO BID Folic Acid (Folvite), 1 MG PO DAILY Furosemide (Lasix), 20 MG PO DAILY Lisinopril (Zestril), 5 MG PO QPM Ondasetron Odt (Zofran Odt), 4 MG SL Q6H Ranitidine (Zantac), 150 MG PO BID Sertraline Hcl (Zoloft), 100 MG PO QAM Sitagliptin (Januvia), 50 MG PO QAM Theophylline Ext Rel (Ho-Dur Ext Rel), 600 MG PO BID Scheduled PRN Hydrocodone/Acetaminophen 10MG/325MG (Harrison 10MG/325MG), 1 TAB PO BID PRN for Pain Ipratropium-Albuterol (Combivent Respimat), 1 PUFFS INH Q4H PRN for Shortness of Breath Ondansetron Hcl (Zofran), 8 MG PO Q8H PRN for Nausea Review of Systems The patient denies chest pain, palpitations, lower extremity swelling, fevers, chills, sweats, diarrhea , constipation, blood in urine or stool, dysuria, urinary frequency or urgency, lightheadedness, dizziness, loss of consciousness, rash, abnormal bruising or bleeding, imbalance, focal or generalized weakness, numbness or tingling in arms or legs, generalized arthralgias or myalgias, back or neck pain, or night sweats. The review of systems is otherwise negative other than for that already noted above, and at least 10 systems have been reviewed. Physical Exam Vital Signs Date Time Temp Pulse Resp B/P (MAP) Pulse Ox O2 Delivery O2 Flow Rate FiO2 10/19/17 18:37 107/60 10/19/17 18:30 76 19 10/19/17 18:00 75 18 10/19/17 17:31 122/79 10/19/17 17:30 74 17 95 Room Air 10/19/17 17:01 109/61 10/19/17 17:00 69 24 94 Room Air 10/19/17 16:49 73 10/19/17 16:47 74 19 115/67 94 Room Air 10/19/17 16:01 75 20 111/71 94 Room Air 10/19/17 15:25 94 Room Air 10/19/17 15:25 94 Room Air 10/19/17 15:25 36.7 77 18 117/73 94 Room Air The patient is awake, alert and oriented 3, looks fatigued, sometimes searching for words, normocephalic and atraumatic, lying in bed and in no acute distress. HEENT--PERRL, EOMI, mucous membranes and oropharynx dry. Neck--supple. No JVD. No bruits. Thyroid normal, trachea midline, no adenopathy. Heart--normal S1 and S2. No murmurs, rubs or gallops. Lungs--scattered coarse breath sounds and wheezes, no respiratory distress, no accessory muscle use. Abdomen--normal bowel sounds and soft. Nontender. Nondistended, no hernias or masses, no organomegaly. Extremities--no cyanosis or clubbing. No edema. There are good distal pulses b/ l. Dermatologic--normal skin turgor, normal color, no abnormal lymph nodes, no rash. Neurologic--cranial nerves II through XII grossly intact. Rheumatologic--normal range of motion. Psychiatric--normal affect. Diagnostics Laboratory Results Results Past 24 Hours Test 10/19/17 15:53 10/19/17 18:52 Range/Units White Blood Count 2.90 4.8-10.8 K/uL Red Blood Count 3.34 4.2-5.4 M/uL Hemoglobin 10.6 12.0-16.0 g/dL Hematocrit 30.7 37-47 % Mean Corpuscular Volume 91.9 80-100 fL Mean Corpuscular Hemoglobin 31.7 25-34 pg Mean Corpuscular Hemoglobin Concent 34.5 32-36 g/dl Platelet Count 96 130-400 K/uL Mean Platelet Volume 9.1 7.4-10.4 fL RDW Standard Deviation 52.7 36.4-46.3 fL RDW Coefficient of Variation 15.6 11.5-14.5 % Neutrophils % (Manual) 69.3 % Lymphocytes % (Manual) 11.4 % Variant Lymphocytes % (manual) 14.9 % Monocytes % (Manual) 3.5 % Eosinophils % (Manual) 0.9 % Neutrophils # (Manual) 2.01 1.4-6.5 K/uL Total Absolute Neutrophils 2.01 1.4-6.5 K/uL Lymphocytes # (Manual) 0.33 1.2-3.4 K/uL Absolute Variant Lymphocytes 0.43 K/uL Total Absolute Lymphocytes 0.76 1.2-3.4 K/uL Monocytes # (Manual) 0.10 0.11-0.59 K/uL Eosinophils # (Manual) 0.03 0-0.5 K/uL Platelet Estimate DECREASED Prothrombin Time 10.0 9.0-12.0 SECONDS Prothromb Time International Ratio 1.0 0.9-1.1 Activated Partial Thromboplast Time 26.0 21.0-31.0 SECONDS Partial Thromboplastin Ratio 1.0 Sodium Level 136 136-145 mmol/L Potassium Level 3.8 3.5-5.1 mmol/L Chloride Level 105 98-107 mmol/L Carbon Dioxide Level 22 21-32 mmol/L Anion Gap 9.0 3-11 mmol/L Blood Urea Nitrogen 33 7-18 mg/dl Creatinine 1.37 0.60-1.20 mg/dl Est Creatinine Clear Calc Drug Dose 41.1 ml/min Estimated GFR () 44.2 Estimated GFR (Non- 38.2 BUN/Creatinine Ratio 23.8 10-20 Random Glucose 131 70-99 mg/dl Calcium Level 9.5 8.5-10.1 mg/dl Magnesium Level 2.0 1.8-2.4 mg/dl Total Bilirubin 0.7 0.2-1 mg/dl Direct Bilirubin 0.1 0-0.2 mg/dl Aspartate Amino Transf (AST/SGOT) 22 15-37 U/L Alanine Aminotransferase (ALT/SGPT) 18 12-78 U/L Alkaline Phosphatase 82 45-117 U/L Troponin I < 0.015 0-0.045 ng/ml Total Protein 7.6 6.4-8.2 gm/dl Albumin 3.4 3.4-5.0 gm/dl Lipase 217 73-393 U/L Theophylline Level 36 30 10-20 mcg/ml Diagnostic Radiology Patient Name: FELISA SCHWAB Unit Number: [id number] Dictated: 10/19/171625 Transcribed: 10/19/171625 [facility] Printed Date/Time: [~ rep prt dt]/[~ rep prt tm] [~ rep ct labl] - [~ rep ct ivnm] [facility] [place] [address] Dictated: 10/19/171625 Transcribed: 10/19/171625 [facility] Printed Date/Time: [~ rep prt dt]/[~ rep prt tm] [~ rep ct labl] - [~ rep ct ivnm] [~ rep ct add3]] HEAD CT NONCONTRAST CT DOSE: 1642.85 mGy.cm HISTORY: Headache. Vomiting. TECHNIQUE: Multiaxial CT images of the head were performed without the use of intravenous contrast. Automated exposure control was utilized for this study. A dose lowering technique was utilized adhering to the principles of ALARA. Comparison: None. Findings: The paranasal sinuses and mastoid air cells are clear. The calvarium and skull base are intact. The ventricles and sulci are within normal limits. There is no mass, hematoma, midline shift, or acute infarct. Incidental note is made of a cavum septa pellucida. Impression: No acute intracranial abnormality. Electronically signed by: Ananda Segovia M.D. 10/19/2017 4:30 PM Dictated Date/Time: 10/19/2017 4:26 PM The status of this report is Signed. Draft = Not yet reviewed or approved by Radiologist. Signed = Reviewed and approved by Radiologist. <AttendingPhy></AttendingPhy> <FamilyPhy>Arthur Cruz M.D.</FamilyPhy> < PrimaryPhy>Arthur Cruz M.D.</PrimaryPhy> <UnitNumber>[id number]</ UnitNumber> <VisitNumber>[id number]</VisitNumber> <PatientName>FELISA SCHWAB</PatientName> <DateOfBirth>1945</DateOfBirth> <Location>[facility]</Location > <ServiceDate>10/19/17</ServiceDate> <MNE>ESINDI</MNE> <OrderingPhy>Say Orozco D.O.</OrderingPhy> <OrderingPhyMNE>f rep ord dr faulkner</OrderingPhyMNE> <DictatingPhyMNE>f rep dict dr faulkner</DictatingPhyMNE> <CCListMNE>f rep ct lucie</ CCListMNE> <AdmittingPhyMNE>f pt admit dr faulkner</AdmittingPhyMNE> <AttendingPhyMNE >f pt attend dr faulkner</AttendingPhyMNE> <ConsultingPhyMNE>f pt consult dr faulkner</ConsultingPhyMNE> <FamilyPhyMNE>f pt fam dr faulkner</FamilyPhyMNE> <OtherPhyMNE>f pt other dr faulkner</OtherPhyMNE> < PrimaryPhyMNE>f pt prim care dr faulkner</PrimaryPhyMNE> <ReferringPhyMNE>f pt referring dr faulkner</ReferringPhyMNE> Patient Name: FELISA SCHWAB Unit Number: [id number] Dictated: 10/19/171717 Transcribed: 10/19/171717 [facility] Printed Date/Time: [~ rep prt dt]/[~ rep prt tm] [~ rep ct labl] - [~ rep ct ivnm] [facility] Radiology Department [place] [id number] Dictated: 10/19/171717 Transcribed: 10/19/171717 [facility] Printed Date/Time: [~ rep prt dt]/[~ rep prt tm] [~ rep ct labl] - [~ rep ct ivnm] [facility]ING[facility] CHEST CLINICAL HISTORY: Atypical chest pain. FINDINGS: An AP, portable, upright chest radiograph is compared to study dated 06/07/2017 and correlated with chest CT dated 09/14/2017. The examination is degraded by portable technique and patient rotation. The cardiomediastinal silhouette is unremarkable. There is atherosclerotic calcification of the thoracic aorta. The pulmonary vasculature is noncongested. Emphysema and chronic interstitial thickening are similar to previous. There is mild elevation of the left hemidiaphragm with associated atelectasis. No airspace consolidation, large pleural effusion, or pneumothorax is seen. A right suprahilar density likely corresponds to patient's known right upper lobe lesion. The skeletal structures are osteopenic. The bony thorax is grossly intact. IMPRESSION: 1. Emphysematous change with no acute cardiopulmonary abnormality. 2. A right suprahilar density likely corresponds to patient's known right upper lobe lung lesion. This was much better assessed on the 09/14/[address] Electronically signed by: Jaxon Felipe M.D. 10/19/2017 5:20 PM Dictated Date/Time: 10/19/2017 5:18 PM The status of this report is Signed. Draft = Not yet reviewed or approved by Radiologist. Signed = Reviewed and approved by Radiologist. <AttendingPhy></AttendingPhy> <FamilyPhy>Arthur Cruz M.D.</FamilyPhy> < PrimaryPhy>Arthur Cruz M.D.</PrimaryPhy> <UnitNumber>[id number]</ UnitNumber> <VisitNumber>[id number]</VisitNumber> <PatientName>FELISA SCHWAB</PatientName> <DateOfBirth>1945</DateOfBirth> <Location>[facility]</Location > <ServiceDate>10/19/17</ServiceDate> <MNE>ESINDI</MNE> <OrderingPhy>Say Orozco D.O.</OrderingPhy> <OrderingPhyMNE>f rep ord dr faulkner</OrderingPhyMNE> <DictatingPhyMNE>f rep dict dr faulkner</DictatingPhyMNE> <CCListMNE>f rep ct mne</ CCListMNE> <AdmittingPhyMNE>f pt admit dr faulkner</AdmittingPhyMNE> <AttendingPhyMNE >f pt attend dr faulkner</AttendingPhyMNE> <ConsultingPhyMNE>f pt consult dr faulkner</ConsultingPhyMNE> <FamilyPhyMNE>f pt fam dr faulkner</FamilyPhyMNE> <OtherPhyMNE>f pt other dr faulkner</OtherPhyMNE> < PrimaryPhyMNE>f pt prim care dr faulkner</PrimaryPhyMNE> <ReferringPhyMNE>f pt referring dr faulkner</ReferringPhyMNE> Patient Name: FELISA SCHWAB Unit Number: [id number] Dictated: 10/19/171635 Transcribed: 10/19/171635 [facility] Printed Date/Time: [~ rep prt dt]/[~ rep prt tm] [~ rep ct labl] - [~ rep ct ivnm] [facility] [place] [address] Dictated: 10/19/171635 Transcribed: 10/19/171635 [facility] Printed Date/Time: [~ rep prt dt]/[~ rep prt tm] [~ rep ct labl] - [~ rep ct ivnm] [~ rep ct add3]] CT SCAN OF THE ABDOMEN AND PELVIS WITHOUT IV CONTRAST CLINICAL HISTORY: Vomiting. COMPARISON STUDY: Abdominal CT dated 09/14/2017. TECHNIQUE: CT scan of the abdomen and pelvis is performed from the lung bases to the proximal femora. Images are reviewed in the axial, sagittal, and coronal planes. IV contrast was not administered for this examination as per the referring clinician. Note that the examination was performed in significantly suboptimal fashion without oral and IV contrast. A dose lowering technique was utilized adhering to the principles of ALARA. FINDINGS: Lung bases: The heart is top normal in size and without pericardial effusion. There are coronary artery calcifications. The lung bases are clear noting dependent atelectasis. There is a tiny hiatal hernia. Liver: The unenhanced liver is elongated, likely representing Camille's lobe variant anatomy. The liver is normal in contour and attenuation. There is mild central intrahepatic biliary ductal dilatation. Gallbladder: Surgically absent noting clips in the gallbladder fossa. Spleen: Normal in size and attenuation. Pancreas: The unenhanced pancreas is moderately atrophic and grossly unremarkable. Adrenal glands: Bilateral adrenal adenomas measuring up to 2.0 cm. Kidneys: The unenhanced kidneys are atrophic and without hydronephrosis. There are no renal calculi identified. Bilateral renal cysts measure up to 1.7 cm. Additional subcentimeter cortical hypodensities also likely represent cysts but are too small for definitive characterization. A 1.4 cm hyperdense cyst is seen in the right lower pole. Parapelvic cysts are noted on the right. Abdominal vasculature: The abdominal aorta is normal in course and caliber noting advanced atherosclerotic calcification. Bowel: There is advanced colonic diverticulosis without CT evidence of acute diverticulitis. No bowel obstruction is identified. The appendix is not identified. Peritoneum: There is no intraperitoneal free air or abdominal ascites. There is a small fat-containing umbilical hernia. Lymphadenopathy: None. Pelvic viscera: The bladder is normal as visualized. The uterus is surgically absent. No adnexal lesion is seen. Numerous phleboliths are noted in the pelvis. Skeletal structures: The skeletal structures are osteopenic. No lytic or blastic lesions are seen. IMPRESSION: 1. Significantly suboptimal examination without oral and IV contrast. 2. There are no acute infectious or inflammatory findings in the abdomen or pelvis. 3. Advanced colonic diverticulosis without CT evidence of acute diverticulitis. 4. Additional findings as above. Electronically signed by: Jaxon Felipe M.D. 10/19/2017 4:44 PM Dictated Date/Time: 10/19/2017 4:36 PM The status of this report is Signed. Draft = Not yet reviewed or approved by Radiologist. Signed = Reviewed and approved by Radiologist. <AttendingPhy></AttendingPhy> <FamilyPhy>Arthur Cruz M.D.</FamilyPhy> < PrimaryPhy>Arthur Cruz M.D.</PrimaryPhy> <UnitNumber>[id number]</ UnitNumber> <VisitNumber>[id number]</VisitNumber> <PatientName>FELISA SCHWAB</PatientName> <DateOfBirth>1945</DateOfBirth> <Location>[facility]</Location > <ServiceDate>10/19/17</ServiceDate> <MNE>ESINDI</MNE> <OrderingPhy>Say Orozco D.O.</OrderingPhy> <OrderingPhyMNE>f rep ord dr faulkner</OrderingPhyMNE> <DictatingPhyMNE>f rep dict dr faulkner</DictatingPhyMNE> <CCListMNE>f rep ct lucie</ CCListMNE> <AdmittingPhyMNE>f pt admit dr faulkner</AdmittingPhyMNE> <AttendingPhyMNE >f pt attend dr faulkner</AttendingPhyMNE> <ConsultingPhyMNE>f pt consult dr faulkner</ConsultingPhyMNE> <FamilyPhyMNE>f pt fam dr faulkner</FamilyPhyMNE> <OtherPhyMNE>f pt other dr faulkner</OtherPhyMNE> < PrimaryPhyMNE>f pt prim care dr faulkner</PrimaryPhyMNE> <ReferringPhyMNE>f pt referring dr faulkner</ReferringPhyMNE> EKG EKG shows normal sinus rhythm at 75 bpm, with resolved nonspecific ST changes compared to EKG of 06/07/17 Impression Assessment and Plan Altered mental status-- May be direct effect of chemotherapy, and or theophylline toxicity. Serial theophylline levels. IV fluid rehydration. Serial CBC with differential, chemistry profile and magnesium levels. CT of head with no acute intracranial abnormality. Consult oncology Dr. Delacruz. Dysphagia secondary to vomiting-- Placed on pantoprazole [address] of abdomen and pelvis without significant acute findings. Zofran 4 mg IV every 6 hours as needed Diabetes mellitus-- Hold Januvia. Placed on Accu-Cheks before meals and at bedtime with NovoLog coverage per scale. COPD/asthma-- Hold theophylline. Hypertension/CHRISTIAN-- continue carvedilol 6.25 mg p.o. twice daily. Hold lisinopril 5 mg p.o. daily and furosemide 20 mg p.o. daily. Repeat laboratories in the a.m. GERD-- Continue ranitidine 150 mg p.o. twice daily. Impression-- continue sertraline 100 mg p.o. every morning. Advanced Directives Existing Advance Directive: No Existing Living Will: No Existing Power of Mill Laborer: No Resuscitation Status VTE Prophylaxis Will order VTE Prophylaxis: Yes Social Service Consult Cancer Patient Under [place]
[2017-10-19] MEDS ORDERED: IPRATROPIUM BROMIDE NEB SOLN 0.02% 2.5 ML VIAL INH PRN (21:00)
[2017-10-19] MEDS ORDERED: LEVALBUTEROL 1.25MG/0.5ML NEB INH PRN (21:00)
[2017-10-19 22:10] VITALS: BP 124/77; PULSE 75; TEMP 37.1; O2SAT 96
[2017-10-19 22:50] VITALS: BP 120/68; PULSE 69; TEMP 36.4; BMI 30.5
[2017-10-19] MEDS: CARVEDILOL 6.25 MG TAB PO SCH (22:52)
[2017-10-19] MEDS: RANITIDINE HCL 150 MG TAB PO SCH (22:53)
[2017-10-19] MEDS: INSULIN ASPART 100 UNITS/ML 3 ML PEN SC SCH (22:53)
[2017-10-19] MEDS: ENOXAPARIN 40 MG/0.4 ML SYR SC SCH (22:54)
[2017-10-19] MEDS: NSS + 20MEQ KCL 1000ML 1,000 ML IV SCH (22:55)
[2017-10-19 23:46] VITALS: BP 120/73; PULSE 73; TEMP 37; O2SAT 96
[2017-10-20] VITALS (7 sets, daily range): BP systolic 97–126; BP diastolic 60–74; PULSE 75–87; TEMP 36.8–37.4; O2SAT 92–96; Ht 167.6 cm; Wt 88.4 kg
[2017-10-20 08:10] LABS: HEMATOCRIT 29.4 % (37-47); HEMOGLOBIN 9.9 g/dL (12.0-16.0); MEAN CORPUSCULAR HEMOGLOBIN 31.3 pg (25-34); MEAN CORPUSCULAR HGB CONC 33.7 g/dl (32-36); MEAN PLATELET VOLUME 8.9 fL (7.4-10.4); PLATELET COUNT 71 K/uL (130-400); RED CELL DISTRIBUTION WIDTH CV 15.4 % (11.5-14.5); RED CELL DISTRIBUTION WIDTH SD 52.6 fL (36.4-46.3); WHITE BLOOD COUNT 2.06 K/uL (4.8-10.8)
[2017-10-20 08:13] LABS: PTT PATIENT 28.9 SECONDS (21.0-31.0)
[2017-10-20 08:37] LABS: ALBUMIN 3.1 gm/dl (3.4-5.0); CALCIUM 8.6 mg/dl (8.5-10.1); CREATININE 1.38 mg/dl (0.60-1.20); POTASSIUM 3.7 mmol/L (3.5-5.1)
[2017-10-20 08:39] LABS: EOS % 5.8 %; EOS ABS # 0.12 K/uL (0-0.5); LYMPH % 63.1 %; MONO % 2.4 %; MONO ABS # 0.05 K/uL (0.11-0.59); NEUT % 28.7 %; NEUT ABS # 0.59 K/uL (1.4-6.5)
[2017-10-20 08:40] LABS: TOTAL PROTEIN 6.8 gm/dl (6.4-8.2)
[2017-10-20] MEDS: CARVEDILOL 6.25 MG TAB PO SCH ×2 (09:06→21:06)
[2017-10-20] MEDS: RANITIDINE HCL 150 MG TAB PO SCH ×2 (09:07→21:06)
[2017-10-20] MEDS: NSS + 20MEQ KCL 1000ML 1,000 ML IV SCH ×2 (09:07→19:59)
[2017-10-20] MEDS: SERTRALINE HCL 100 MG TAB PO SCH (09:07)
[2017-10-20] MEDS: INSULIN ASPART 100 UNITS/ML 3 ML PEN SC SCH ×4 (09:09→21:00)
--- NOTE | 2017-10-20 09:50 | Clinical Documentation Query ---
CLINICAL DOCUMENTATION QUERY 72 yo female presented with confusion and fatigue. Patient admitted with altered mental status possibly due to theophylline toxicity. In your clinical opinion is this patient being managed for: (x ) Toxic encephalopathy ( ) Not Agree ( ) Other explanation of clinical findings (Please Explain) ( ) Unable to determine (Please Define) ( ) Need to Discuss The medical record reflects the following clinical findings, treatment, and risk factors. Clinical Indicators: As above Treatment: CT head, theophylline level Risk Factors: Age, CHRISTIAN, chemotherapy Please clarify and document your clinical opinion in the progress notes and discharge summary. Terms such as "probable", "suspected", "likely", "questionable", "possible", or "still to be ruled out" are acceptable. IF IN AGREEMENT, YOU MUST DOCUMENT ABOVE DIAGNOSTIC STATEMENT IN DAILY PROGRESS NOTES AND DISCHARGE SUMMARY. This document is not part of the patient's record. Thank You, Colleen Vaughn RN [phone]
[2017-10-20] MEDS: IPRATROPIUM BROMIDE/ALBUTEROL respimat INH INH PRN ×3 (11:22→22:27)
--- NOTE | 2017-10-20 15:17 | DIAGNOSTIC IMAGING REPORT ---
ULTRASOUND R VENOUS DOPP LOWER EXT UNILAT CLINICAL HISTORY: Enlarged right leg. History of lung cancer. COMPARISON STUDY: December 2015 FINDINGS: Real-time and color flow Doppler imaging were performed. Flow was seen within the femoral, popliteal and calf veins with no intraluminal thrombus demonstrated. The saphenous vein is patent. IMPRESSION: No evidence of right lower extremity DVT. Electronically signed by: Rosales Garcia M.D. 10/20/2017 3:16 PM Dictated Date/Time: 10/20/2017 3:15 PM
[2017-10-20] MEDS: BOOST GLUCOSE CONTROL PO SCH (17:16)
--- NOTE | 2017-10-20 20:03 | Progress Note ---
Subjective Date of Service: Oct 20, 2017. Subjective Pt evaluation today including: conversation w/ patient, conversation w/ family (grandson at bedside), physical exam, chart review, lab review, review of studies (CT abd/pelvis, etc), review of inpatient medication list Pain: no further abdominal pain PO Intake: tolerating her meals Voiding: no voiding problems tele overnight - bigeminy, trigeminy only; nothing sustained she feels better no further emesis/nausea/abd pain denies any swallowing difficulties recent mouth soreness resolved reports taking theophylline for 20-25 years she desires to remain on it if possible Problem List Medical Problems: (1) Dysphagia Status: Acute (2) Gastroenteritis Status: Acute (3) Intertrigo Status: Acute (4) Intractable vomiting Status: Acute (5) Mass of right lung Status: Acute (6) Near syncope Status: Acute (7) Pain of left calf Status: Acute (8) Pancytopenia Status: Acute (9) Theophylline toxicity Status: Acute (10) Vomiting Status: Acute (11) Yeast infection Status: Acute Review of Systems Constitutional: No fever, No chills Respiratory: No cough, No shortness of breath Cardiac: No chest pain Abdomen: No pain Objective Vital Signs Date Time Temp Pulse Resp B/P (MAP) Pulse Ox O2 Delivery O2 Flow Rate FiO2 10/20/17 16:00 Room Air 10/20/17 15:39 36.8 77 18 118/70 (86) 96 Room Air 10/20/17 12:00 Room Air 10/20/17 11:23 37.2 82 16 119/68 (85) 93 Room Air 10/20/17 08:00 95 Room Air 10/20/17 07:32 37.3 75 16 114/68 (83) 95 Room Air 10/20/17 04:11 37.1 75 17 97/60 (72) 93 Room Air 10/20/17 04:00 Nasal Cannula 10/20/17 00:00 Nasal Cannula 10/19/17 23:46 37.0 73 20 120/73 (89) 96 Nasal Cannula 10/19/17 22:50 36.4 69 20 120/68 Room Air 10/19/17 22:10 37.1 75 20 124/77 (93) 96 Room Air 10/19/17 21:49 80 18 108/66 98 10/19/17 21:00 76 18 123/75 96 Room Air Physical Exam General Appearance: no apparent distress ENT: pharynx normal, + pertinent finding (no mucositis or thrush) Neck: no JVD Respiratory/Chest: lungs clear, no respiratory distress, no accessory muscle use Cardiovascular: regular rate, rhythm, no gallop, no murmur Abdomen: normal bowel sounds, non tender, soft, no organomegaly Extremities: no pedal edema Neurologic/Psychiatric: alert, oriented x 3 Laboratory Results Last 24 Hours Test 10/19/17 22:47 10/20/17 07:45 10/20/17 07:52 10/20/17 11:31 Bedside Glucose 115 mg/dl 101 mg/dl 135 mg/dl White Blood Count 2.06 K/uL Red Blood Count 3.16 M/uL Hemoglobin 9.9 g/dL Hematocrit 29.4 % Mean Corpuscular Volume 93.0 fL Mean Corpuscular Hemoglobin 31.3 pg Mean Corpuscular Hemoglobin Concent 33.7 g/dl Platelet Count 71 K/uL Mean Platelet Volume 8.9 fL Neutrophils (%) (Auto) 28.7 % Lymphocytes (%) (Auto) 63.1 % Monocytes (%) (Auto) 2.4 % Eosinophils (%) (Auto) 5.8 % Basophils (%) (Auto) 0.0 % Neutrophils # (Auto) 0.59 K/uL Lymphocytes # (Auto) 1.30 K/uL Monocytes # (Auto) 0.05 K/uL Eosinophils # (Auto) 0.12 K/uL Basophils # (Auto) 0.00 K/uL RDW Standard Deviation 52.6 fL RDW Coefficient of Variation 15.4 % Immature Granulocyte % (Auto) 0.0 % Immature Granulocyte # (Auto) 0.00 K/uL Prothrombin Time 10.2 SECONDS Prothromb Time International Ratio 1.0 Activated Partial Thromboplast Time 28.9 SECONDS Partial Thromboplastin Ratio 1.1 Sodium Level 138 mmol/L Potassium Level 3.7 mmol/L Chloride Level 107 mmol/L Carbon Dioxide Level 23 mmol/L Anion Gap 8.0 mmol/L Blood Urea Nitrogen 25 mg/dl Creatinine 1.38 mg/dl Est Creatinine Clear Calc Drug Dose 40.1 ml/min Estimated GFR () 43.8 Estimated GFR (Non- 37.8 BUN/Creatinine Ratio 18.3 Random Glucose 99 mg/dl Calcium Level 8.6 mg/dl Magnesium Level 1.9 mg/dl Total Bilirubin 0.9 mg/dl Direct Bilirubin 0.2 mg/dl Aspartate Amino Transf (AST/SGOT) 19 U/L Alanine Aminotransferase (ALT/SGPT) 14 U/L Alkaline Phosphatase 73 U/L Total Protein 6.8 gm/dl Albumin 3.1 gm/dl Theophylline Level 15 mcg/ml Test 10/20/17 12:42 10/20/17 16:27 Bedside Glucose 164 mg/dl 176 mg/dl Assessment and Plan 72yo female - 1. nausea/emesis/abd pain - likely from theophylline toxicity +/- recent chemotherapy side effects - resolved. 2. theophylline toxicity - resolved. Spoke with pharmacy - her recent chemotherapy agents do NOT interact with theophylline. Uncertain why she became toxic. Patient desires to remain on it. Will speak with pharmacy tomorrow about dosing, but will likely cut dose in 1/2 to 300mg BID. 3. chemotherapy-induced pancytopenia - repeat CBC in am for stability. 4. neutropenia - 2nd to recent chemotherapy - neutropenic precautions. No evidence of infectious process/fever. CBC in am. 5. T2DM - controlled; holding oral agents. 6. HTN - controlled. 7. lung cancer - s/p recent chemotherapy - stable. 8. CKD stage 3 - creatinine stable, BMP in am for stability. 9. COPD - not in exacerbation; see above re: theophylline. 10. DVT proph - lovenox, but watch platelets carefully while on chemical prophylaxis. obtain PT consult to ensure safe d/c to home Continued [facility] stay due to: multiple IV medications needed Discharge planning: home
[2017-10-20] MEDS: ENOXAPARIN 40 MG/0.4 ML SYR SC SCH (21:07)
[2017-10-21] VITALS (9 sets, daily range): BP systolic 111–135; BP diastolic 67–80; PULSE 61–80; TEMP 37–37.3; O2SAT 93–96
[2017-10-21 07:34] LABS: HEMATOCRIT 26.2 % (37-47); HEMOGLOBIN 8.8 g/dL (12.0-16.0); MEAN CELL VOLUME 94.2 fL (80-100); MEAN CORPUSCULAR HEMOGLOBIN 31.7 pg (25-34); MEAN CORPUSCULAR HGB CONC 33.6 g/dl (32-36); MEAN PLATELET VOLUME 9.9 fL (7.4-10.4); PLATELET COUNT 53 K/uL (130-400); RED CELL DISTRIBUTION WIDTH CV 15.3 % (11.5-14.5); RED CELL DISTRIBUTION WIDTH SD 52.6 fL (36.4-46.3); WHITE BLOOD COUNT 1.46 K/uL (4.8-10.8)
[2017-10-21 07:57] LABS: CALCIUM 8.3 mg/dl (8.5-10.1); CREATININE 1.35 mg/dl (0.60-1.20); POTASSIUM 3.9 mmol/L (3.5-5.1)
[2017-10-21 08:08] LABS: EOS % 4.8 %; EOS ABS # 0.07 K/uL (0-0.5); IG# 0.04 K/uL (0.00-0.02); LYMPH % 78.8 %; LYMPH ABS # 1.15 K/uL (1.2-3.4); MONO % 4.8 %; MONO ABS # 0.07 K/uL (0.11-0.59); NEUT % 8.9 %; NEUT ABS # 0.13 K/uL (1.4-6.5)
[2017-10-21] MEDS: BOOST GLUCOSE CONTROL PO SCH ×2 (08:51→16:54)
[2017-10-21] MEDS: IPRATROPIUM BROMIDE/ALBUTEROL respimat INH INH PRN ×3 (08:51→13:00)
[2017-10-21] MEDS: CARVEDILOL 6.25 MG TAB PO SCH ×2 (08:52→21:12)
[2017-10-21] MEDS: SERTRALINE HCL 100 MG TAB PO SCH (08:52)
[2017-10-21] MEDS: RANITIDINE HCL 150 MG TAB PO SCH ×2 (08:52→21:12)
[2017-10-21] MEDS: INSULIN ASPART 100 UNITS/ML 3 ML PEN SC SCH ×4 (08:54→21:00)
[2017-10-21] MEDS ORDERED: OPTIRAY 320 IV PRN (11:45)
--- NOTE | 2017-10-21 13:45 | DIAGNOSTIC IMAGING REPORT ---
CT ANGIOGRAM OF THE CHEST CLINICAL HISTORY: Lung cancer. Dyspnea. COMPARISON STUDY: Chest CT scans dated 09/14/2017 and 03/12/2016. Chest x-ray dated 10/19/2017. TECHNIQUE: Following the IV administration of 91 cc of Optiray 320, CT angiogram of the chest was performed from the upper abdomen to the thoracic inlet utilizing the pulmonary embolus protocol. Images are reviewed in the axial, sagittal, and coronal planes. 3-D MIPS images are created and assessed. IV contrast was administered without complication. A dose lowering technique was utilized adhering to the principles of ALARA. The examination is degraded by motion artifact. CT DOSE: 457.84 mGy.cm FINDINGS: Thyroid: Imaged portions of the thyroid gland are normal in size and attenuation. Thoracic aorta: There is atherosclerotic calcification of the thoracic aorta, which is normal in caliber and demonstrates standard 3-vessel arch anatomy. The thoracic aorta is not well opacified. Pulmonary vasculature: The pulmonary trunk is normal in caliber. There are no filling defects identified in main, lobar, or segmental pulmonary branches to suggest pulmonary embolus. Heart: The heart is enlarged and without pericardial effusion. The coronary arteries are densely calcified. Lungs and pleural spaces: Mild emphysematous change is observed. Again seen is a spiculated right suprahilar lesion with central cavitation. This is image #144 measures 2.4 x 1.6 cm. This tents the adjacent right major fissure and has not significantly changed in size from 09/14/2017. Mild diffuse peribronchial thickening has increased from previous. A 4 mm focus of pleural-based nodularity in the left upper lobe along the major fissure is unchanged as seen on image #186. No lobar consolidation or pleural effusion is identified. Scar/atelectasis is noted at the lung bases. Foci of air trapping are suggested throughout both lungs. Mediastinum: There is no mediastinal lymphadenopathy. Hui: Clear. Axillae: There is no axillary lymphadenopathy. Upper abdomen: Partially visualized upper abdominal viscera is within normal limits. Skeletal structures: The skeletal structures are osteopenic. No lytic or blastic bony lesions are seen. There is a mild to moderate compression deformity of T4. Arthritic change is noted in the shoulders. IMPRESSION: 1. There is no evidence of pulmonary embolus in the main, lobar, or segmental pulmonary arteries. 2. Mild emphysema and a spiculated right upper lobe pulmonary lesion are not significantly changed in appearance from 09/14/2017. 3. No airspace consolidation or pleural effusion is identified. Diffuse peribronchial thickening suggests reactive air disease. Clinical correlation will be required. 4. An indeterminant focus of pleural nodularity in the left upper lobe lung the major fissure is unchanged measuring up to 4 mm. 5. Cardiomegaly. Electronically signed by: Jaxon Felipe M.D. 10/21/2017 1:44 PM Dictated Date/Time: 10/21/2017 1:35 PM
[2017-10-21] MEDS: ALBUT/IPRATROP 3MG/0.5MG NEB 3 ML VIAL INH SCH ×3 (14:00→19:38)
[2017-10-21] MEDS: NSS + 20MEQ KCL 1000ML 1,000 ML IV SCH (15:50)
[2017-10-21] MEDS: FLUTICASONE/SALMETEROL 250/50 (ADVAIR) 14 PUFF/1 INHALER INH SCH (21:11)
[2017-10-21] MEDS: THEOPHYLLINE 300MG EXTENDED REL TAB PO SCH (21:12)
[2017-10-22] VITALS (9 sets, daily range): BP systolic 122–146; BP diastolic 71–85; PULSE 66–82; TEMP 37.1–37.2; O2SAT 94–98
--- NOTE | 2017-10-22 00:37 | Progress Note ---
Subjective Date of Service: Oct 21, 2017. Subjective Pt evaluation today including: conversation w/ patient, physical exam, chart review, lab review, review of studies (CT chest), review of inpatient medication list Pain: none PO Intake: fair/good Voiding: no voiding problems tele stable overnight her main complaint is that of dyspnea she has chronic shortness of breath, but this has been markedly worse in the last couple of weeks no cough denies chest discomfort states she has tried spiriva and other inhalers in the past but did not feel they were helpful Problem List Medical Problems: (1) Dysphagia Status: Acute (2) Gastroenteritis Status: Acute (3) Intertrigo Status: Acute (4) Intractable vomiting Status: Acute (5) Mass of right lung Status: Acute (6) Near syncope Status: Acute (7) Pain of left calf Status: Acute (8) Pancytopenia Status: Acute (9) Theophylline toxicity Status: Acute (10) Vomiting Status: Acute (11) Yeast infection Status: Acute Review of Systems Constitutional: No fever, No chills Respiratory: No cough Cardiac: No chest pain, No orthopnea Abdomen: No pain, No nausea, No vomiting, No diarrhea Objective Vital Signs Date Time Temp Pulse Resp B/P (MAP) Pulse Ox O2 Delivery O2 Flow Rate FiO2 10/21/17 20:00 Room Air 10/21/17 19:40 66 18 96 Room Air 10/21/17 19:36 37.2 80 18 131/80 (97) 94 Room Air 10/21/17 16:00 Room Air 10/21/17 15:49 74 22 96 Room Air 10/21/17 15:13 37.0 73 16 119/69 (86) 95 Room Air 10/21/17 12:00 Room Air 10/21/17 11:22 37.1 67 16 111/67 (82) 93 Room Air 10/21/17 09:50 74 95 10/21/17 08:00 Room Air 10/21/17 07:38 37.1 61 16 135/78 (97) 95 Room Air 10/21/17 04:03 37.3 73 21 118/76 (90) 93 Room Air 10/21/17 04:00 Room Air 10/21/17 00:00 Room Air 10/20/17 23:37 37.3 79 19 126/74 (91) 92 Room Air Physical Exam General Appearance: no apparent distress ENT: pharynx normal Neck: no JVD Respiratory/Chest: lungs clear, no respiratory distress, no accessory muscle use Cardiovascular: regular rate, rhythm, no gallop, no murmur Abdomen: normal bowel sounds, non tender, soft, no organomegaly Extremities: no pedal edema Neurologic/Psychiatric: alert, oriented x 3, + depressed affect Laboratory Results Last 24 Hours Test 10/21/17 07:07 10/21/17 07:31 10/21/17 11:39 10/21/17 16:37 White Blood Count 1.46 K/uL Red Blood Count 2.78 M/uL Hemoglobin 8.8 g/dL Hematocrit 26.2 % Mean Corpuscular Volume 94.2 fL Mean Corpuscular Hemoglobin 31.7 pg Mean Corpuscular Hemoglobin Concent 33.6 g/dl Platelet Count 53 K/uL Mean Platelet Volume 9.9 fL Neutrophils (%) (Auto) 8.9 % Lymphocytes (%) (Auto) 78.8 % Monocytes (%) (Auto) 4.8 % Eosinophils (%) (Auto) 4.8 % Basophils (%) (Auto) 0.0 % Neutrophils # (Auto) 0.13 K/uL Lymphocytes # (Auto) 1.15 K/uL Monocytes # (Auto) 0.07 K/uL Eosinophils # (Auto) 0.07 K/uL Basophils # (Auto) 0.00 K/uL RDW Standard Deviation 52.6 fL RDW Coefficient of Variation 15.3 % Immature Granulocyte % (Auto) 2.7 % Immature Granulocyte # (Auto) 0.04 K/uL Red Blood Cell Morphology Unremarkable Sodium Level 139 mmol/L Potassium Level 3.9 mmol/L Chloride Level 110 mmol/L Carbon Dioxide Level 23 mmol/L Anion Gap 6.0 mmol/L Blood Urea Nitrogen 27 mg/dl Creatinine 1.35 mg/dl Est Creatinine Clear Calc Drug Dose 41.4 ml/min Estimated GFR () 45.0 Estimated GFR (Non- 38.9 BUN/Creatinine Ratio 20.3 Random Glucose 92 mg/dl Calcium Level 8.3 mg/dl Total Creatine Kinase 21 U/L Bedside Glucose 91 mg/dl 140 mg/dl 98 mg/dl Test 10/21/17 19:46 Bedside Glucose 133 mg/dl Assessment and Plan 72yo female - 1. nausea/emesis/abd pain - likely from theophylline toxicity +/- recent chemotherapy side effects - resolved. 2. theophylline toxicity - resolved. Spoke with pharmacy - her recent chemotherapy agents do NOT interact with theophylline. Uncertain why she became toxic. Patient desires to remain on it. Spoke again w/ pharmacy today - will resume theophylline at 300mg BID, and will need theophylline level TUESDAY AFTERNOON of this coming week. 3. chemotherapy-induced pancytopenia - repeat CBC in am for stability. Expect counts to plateau and then recover soon. 4. neutropenia - 2nd to recent chemotherapy - neutropenic precautions. No evidence of infectious process/fever. CBC in am. 5. T2DM - controlled; holding oral agents. 6. HTN - controlled. 7. lung cancer - s/p recent chemotherapy - stable. CT chest today w/o worsening cancer and no evidence of metastatic disease. 8. CKD stage 3 - creatinine stable, BMP in am for stability. Hydrate until this evening due to recent contrast administration. 9. COPD - not in exacerbation, but pt's recent shortness of breath may be from this. Resume theophylline ( see above ) and add advair as she really needs better controller medicine to use on a chronic basis. Pt reports that duoneb works the same as her combivent inhaler. 10. DVT proph - due to declining platelet levels will place lovenox on hold. 11. dyspnea - CT chest obtained - no PE, no pneumonia, lung cancer unchanged in size. Dyspnea is either from COPD, or could be from undiagnosed underlying heart disease, or anemia could be contributing as well. Add advair for COPD. Follow cbc. EKGs this admission have been w/o ischemic changes. 12. toxic encephalopathy - 2nd to #2 - resolved. PT has cleared for home hopefully d/c home on Tuesday Discharge planning: home
[2017-10-22] MEDS: ALBUT/IPRATROP 3MG/0.5MG NEB 3 ML VIAL INH SCH ×3 (07:05→15:02)
[2017-10-22] MEDS: BOOST GLUCOSE CONTROL PO SCH ×2 (07:30→16:49)
[2017-10-22] MEDS: FLUTICASONE/SALMETEROL 250/50 (ADVAIR) 14 PUFF/1 INHALER INH SCH (07:30)
[2017-10-22] MEDS: CARVEDILOL 6.25 MG TAB PO SCH (07:31)
[2017-10-22] MEDS: RANITIDINE HCL 150 MG TAB PO SCH (07:31)
[2017-10-22] MEDS: SERTRALINE HCL 100 MG TAB PO SCH (07:31)
[2017-10-22] MEDS: THEOPHYLLINE 300MG EXTENDED REL TAB PO SCH (07:31)
[2017-10-22 07:57] LABS: HEMATOCRIT 26.3 % (37-47); HEMOGLOBIN 8.9 g/dL (12.0-16.0); MEAN CELL VOLUME 92.9 fL (80-100); MEAN CORPUSCULAR HEMOGLOBIN 31.4 pg (25-34); MEAN CORPUSCULAR HGB CONC 33.8 g/dl (32-36); MEAN PLATELET VOLUME 9.7 fL (7.4-10.4); PLATELET COUNT 45 K/uL (130-400); RED CELL DISTRIBUTION WIDTH CV 15.1 % (11.5-14.5); RED CELL DISTRIBUTION WIDTH SD 51.6 fL (36.4-46.3); WHITE BLOOD COUNT 1.53 K/uL (4.8-10.8)
[2017-10-22 08:21] LABS: CALCIUM 8.8 mg/dl (8.5-10.1); CREATININE 1.06 mg/dl (0.60-1.20); POTASSIUM 4.1 mmol/L (3.5-5.1)
[2017-10-22 08:25] LABS: EOS % 3.9 %; EOS ABS # 0.06 K/uL (0-0.5); LYMPH % 74.5 %; LYMPH ABS # 1.14 K/uL (1.2-3.4); MONO % 11.1 %; MONO ABS # 0.17 K/uL (0.11-0.59); NEUT % 10.5 %; NEUT ABS # 0.16 K/uL (1.4-6.5)
[2017-10-22] MEDS: INSULIN ASPART 100 UNITS/ML 3 ML PEN SC SCH ×3 (08:49→17:25)
[2017-10-22] MEDS ORDERED: ADVIN25050 INH (16:20)
[2017-10-22] MEDS ORDERED: ALBINS INH (16:20)
[2017-10-22] MEDS ORDERED: NUTR-7 PO (16:20)
[2017-10-22] MEDS ORDERED: THEO300T14 PO (16:20)
--- NOTE | 2017-10-22 16:28 | Discharge Instructions ---
Discharge Instructions Date of Service Oct 22, 2017. Admission Reason for Admission:Nausea And Vomiting, Theophylline toxicity Discharge Discharge Diagnosis / Problem: Nausea and vomiting, theophylline toxicity Discharge Goals Goal(s): Improve disease control, Diagnostic testing, Therapeutic intervention Activity Recommendations Activity Limitations: as noted below Exercise/Sports Limitations: gradually increase as tolerated Shower/Bathe: no limitations . Instructions / Follow-Up Instructions / Follow-Up You were admitted with nausea and vomiting thought to be related to theophylline toxicity. Your theophylline dose has been reduced to 300 mg twice a day. All of your symptoms had completely resolved prior to discharge. It is very important that you have your theophylline blood work level rechecked on Tuesday afternoon at the lab-the results should be sent to your primary care physician. Your also started on Advair to help with your COPD. Please contact Dr. Simon's office on Tuesday to see when they want to see you in follow-up. Your blood counts were low which can be expected with your recent chemotherapy, they may want to recheck them next week. Please follow-up with your PCP within 1-2 weeks. Current Hospital Diet Patient's current hospital diet: Diabetes Type 2 Diet Discharge Diet Recommended Diet: Diabetes Type 2 Diet Procedures Procedures Performed: CT head Chest x-ray CT angiogram chest CT abdomen/pelvis Right lower extremity venous Doppler ultrasound Pending Studies Studies pending at discharge: no Medical Emergencies . Who to Call and When: Medical Emergencies: If at any time you feel your situation is an emergency, please call 911 immediately. . Non-Emergent Contact Non-Emergency issues call your: Primary Care Provider, Oncologist Call Non-Emergent contact if: temperature is above 100.5, your pain is not controlled, your pain is worsening, your pain is unusual for you, your pain is concerning you, you have any medication questions . . "Provider Documentation" section prepared by Natasha Manriquez. .
--- NOTE | 2017-10-22 16:43 | Discharge Summary ---
Discharge Summary Date of Service Oct 22, 2017. Discharge Summary Admission Date: Oct 19, 2017 at 20:48 Discharge Date: Oct 22, 2017 Discharge Disposition: Home with services Principal Diagnosis: Intractable nausea/vomiting, theophylline toxicity Problems/Secondary Diagnoses: Abdominal pain Chemotherapy-induced pancytopenia Diabetes mellitus type 2 HTN Lung cancer Acute renal insufficiency in the setting of CKD stage III COPD - not in exacerbation Dyspnea Acute toxic encephalopathy Immunizations: Have You Had Influenza Vaccine: Unknown History of Tetanus Vaccine?: Unknown History of Pneumococcal: Unknown History of Hepatitis B Vaccine: Unknown Procedures: CT head Chest x-ray CT angiogram chest CT abdomen/pelvis Right lower extremity venous Doppler ultrasound Consultations: None Medication Reconciliation New Medications: Albuterol Sulf (Albuterol Sulfate) 2.5 Mg/3 Ml Nebu 2.5 MG INH Q4H PRN for SOB/Wheezing, #120 EA Fluticasone Prop/Salmeterol (Advair Diskus 250-50 Mcg/Dose) 14 Puff/1 Inhaler Aerp 1 PUFF INH BID, #1 INHALER Nutritional Supplements (Boost) 1 Liq Liq 1 CAN PO BIDM for 30 Days Changed Medications: Theophylline Ext Rel (Ho-Dur Ext Rel) 300 Mg Tabcr 300 MG PO BID for 30 Days (Changed from: 600 MG) Continued Medications: Carvedilol (Coreg) 6.25 Mg Tab 6.25 MG PO BID, TAB Folic Acid (Folvite) 1 Mg Tab 1 MG PO DAILY, TAB Furosemide (Lasix) 20 Mg Tab 20 MG PO DAILY, TAB Hydrocodone/Acetaminophen 10MG/325MG ([place] 10MG/325MG) Tab 1 TAB PO BID PRN for Pain, TAB PRN PAIN Ipratropium-Albuterol (Combivent Respimat) 1 Aer Aer 1 PUFFS INH Q4H PRN for Shortness of Breath, INH Ondansetron Hcl (Zofran) 8 Mg Tab 8 MG PO Q8H PRN for Nausea, TAB Ranitidine (Zantac) 150 Mg Tab 150 MG PO BID, TAB Sertraline Hcl (Zoloft) 100 Mg Tab 100 MG PO QAM, TAB Sitagliptin (Januvia) 50 Mg Tab 50 MG PO QAM, TAB Discontinued Medications: Lisinopril (Zestril) 5 Mg Tab 5 MG PO QPM for 1 Day, TAB HOLD-DO NOT TAKE UNTIL YOUR MD SAYS IT'S OK TO RESTART Ondasetron Odt (Zofran Odt) 4 Mg Tab 4 MG SL Q6H for Nausea, #20 TAB Discharge Exam Patient feels much improved. She is eating full meals today and has no further nausea or vomiting. Denies abdominal pain. Denies chest pain or shortness of breath. She has a dry cough that is unchanged chronically. She has been ambulating around the room and is not lightheaded, does not feel weak. Review of Systems: Constitutional: No fever, No chills Eyes: No problem reported ENT: No problem reported Respiratory: No problem reported Cardiovascular: No problem reported Abdomen: No problem reported Musculoskeletal: No problem reported Genitourinary - Female: No problem reported Neurologic: No problem reported Psychiatric: No problem reported Endocrine: No problem reported Hematologic / Lymphatic: No problem reported Integumentary: No problem reported Physical Exam: General Appearance: WD/WN, no apparent distress Eyes: normal inspection, sclerae normal ENT: hearing grossly normal, pharynx normal (No thrush) Neck: no adenopathy, trachea midline Respiratory/Chest: lungs clear, normal breath sounds, no respiratory distress, no accessory muscle use Cardiovascular: regular rate, rhythm, no edema, no gallop, no JVD, no murmur , normal peripheral pulses Abdomen / GI: normal bowel sounds, non tender, soft, no organomegaly, no pulsatile mass Extremities: normal inspection, no calf tenderness, normal capillary refill , no pedal edema, normal range of motion Neurologic/Psychiatric: alert, oriented x 3, + depressed affect Skin: normal color, warm/dry, no rash Lymphatic: no adenopathy Hospital Course This patient is a 72-year-old female with a history of COPD, lung cancer, HTN, DM 2, CKD stage III, who presents to the emergency department with complaint of crampy abdominal pain, nausea and vomiting, with difficulty swallowing. Patient is presently being treated with chemotherapy for lung cancer. Her last chemotherapy was at the end of September. She appeared to have an altered mental status upon admission. Her theophylline level was found to be significantly elevated at 36. She had a shortened IL interval on ECG. CT scan of the abdomen and pelvis did not reveal a reason for her abdominal pain or nausea and vomiting. Intractable nausea/emesis/abd pain - likely from theophylline toxicity +/- recent chemotherapy side effects - resolved. Theophylline toxicity - resolved. Level was 36 on admission, then reduced to 15 after holding the dose. Spoke with pharmacy - her recent chemotherapy agents do NOT interact with theophylline. Uncertain why she became toxic. Patient desires to remain on it. ECG changes were improved on repeat EKG. Nausea and vomiting and abdominal pain was completely resolved after holding the medication. Theophylline was resumed at a lower dose of 300mg BID, and will need theophylline level Tuesday of this coming week. Prescription for the blood work was given to her on discharge. Chemotherapy-induced pancytopenia -all counts continued to drop slightly on the day of discharge, but no evidence of bleeding. She does not need a transfusion. Hemoglobin was 8.9, WBC count was 1.5 with an ANC of 160, and platelets were 45 and the day of discharge. She had no fever the entire hospital admission. -Expect counts to plateau and then recover soon. -She was instructed to call her oncologist on Tuesday morning to get a hospital follow-up visit where she will likely get repeat CBC T2DM - controlled -Continue Januvia at home HTN - controlled. Blood pressures actually a little on the low side of normal at times requiring holding her lisinopril. -Discontinue lisinopril permanently, or at least for now -Continue Coreg Llung cancer - s/p recent chemotherapy - stable. CT chest here w/o worsening cancer and no evidence of metastatic disease. Acute renal insufficiency in the setting of CKD stage 3 - creatinine mildly elevated at 1.37 on admission, is now down to 1.06 after IV fluid hydration -Okay to restart her Lasix on discharge -Discontinuing lisinopril as above COPD/dyspnea not in exacerbation, but pt's recent chronic shortness of breath may be from this. CT of the chest without PE or pneumonia. Resumed theophylline at lower dose ( see above ) and added advair as she really needs better controller medicine to use on a chronic basis. Pt reports that duoneb works the same as her combivent inhaler. -Gave prescription for albuterol nebulized medication for home use as needed Acute toxic encephalopathy -secondary to theophylline toxicity-resolved Patient stable for discharge to home with home health Total Time Spent: Greater than 30 minutes This includes examination of the patient, discharge planning, medication reconciliation, and communication with other providers. Discharge Instructions Please refer to the electronic Patient Visit Report (Discharge Instructions) for additional information. Follow-Up With oncology and PCP within 1-2 weeks -Check theophylline level on Tuesday afternoon Additional Copies To Jan Simon D.O.; Arthur Cruz M.D.
== END 2017-10-22 18:00 | disposition home health service (06) | DRG 917 ==
LOC: EDBD 15:24 → C.EDB 15:25 → C.MED 20:48 → ENRESERV 21:12
PROVIDERS: ADMIT Hospitalist; ATTEND Family Medicine
DX: T48.6X1A Poisoning by antiasthmatics, accidental (unintentional), initial encounter (principal); D61.818 Other pancytopenia; G92 Toxic encephalopathy; C34.90 Malignant neoplasm of unspecified part of unspecified bronchus or lung; R13.10 Dysphagia, unspecified; I12.9 Hypertensive chronic kidney disease with stage 1 through stage 4 chronic kidney disease, or unspecified chronic kidney disease; J44.9 Chronic obstructive pulmonary disease, unspecified; E11.9 Type 2 diabetes mellitus without complications; N18.3 Chronic kidney disease, stage 3 (moderate); Z87.891 Personal history of nicotine dependence; K21.9 Gastro-esophageal reflux disease without esophagitis; T45.1X5A Adverse effect of antineoplastic and immunosuppressive drugs, initial encounter; Y92.019 Unspecified place in single-family (private) house as the place of occurrence of the external cause

== ENCOUNTER → 2017-11-03 | Outpatient (CLI) | payer OTHER ==
[~2017-11-03] MED LIST changes: +ADVIN25050 INH; +ALBINS INH; -DXM/4 PO; -FAMO20TA11 PO; +FOLI1TAB8 PO; +FURO-85 PO; -FURO20TA PO; -LISI-729 PO; +NUTR-7 PO; +ONDA-170 PO; -ONDA4TAB65 PO; +RANI150T85 PO
== END | disposition home or self-care (01) ==
LOC: C.LAB 16:26
PROVIDERS: ATTEND Family Medicine
DX: T48.6X1A Poisoning by antiasthmatics, accidental (unintentional), initial encounter (principal)

== ENCOUNTER → 2017-12-07 | Outpatient (CLI) | payer OTHER ==
--- NOTE | 2017-12-07 13:20 | DIAGNOSTIC IMAGING REPORT ---
PET/CT SKULL-THIGH CLINICAL HISTORY: 72 years-old Female presenting with NON SMALL CELL LUNG CANCER, history of smoking, left adrenal nodule. TECHNIQUE: PET/CT was performed from the skull base through the proximal thighs following the intravenous administration of 10.843 mCi of F18-FDG. Blood glucose level 142 mg/dL. The injection was performed at 10:50 AM and imaging began at 11:[address] was performed for attenuation correction purposes and anatomic localization. COMPARISON: 02/28/2017. CT DOSE (mGy.cm): The estimated cumulative dose is 1156.30. FINDINGS: Head and neck: No FDG-avid mass in the visualized portion of the head or neck. No FDG avid or enlarged lymph nodes in the neck. Mucosal thickening in the maxillary sinuses. Chest: Normal thyroid and thoracic inlet. No FDG avid axillary, supraclavicular, or mediastinal lymphadenopathy. Evaluation of the allison on anatomic imaging limited without intravenous contrast. Atherosclerosis of the aorta. Normal heart size. Coronary artery and aortic valve calcification. No pericardial or pleural effusion. Minimal dependent changes likely atelectasis. Architectural distortion in the posterior segment of the right upper lobe at the site of prior malignancy. There is a spiculated cavitary 1.8 cm region (series 2 image 66), which is mildly FDG avid (max SUV 2.3 in comparison to uninvolved lung parenchyma with a max SUV of 0.70. This is decreased in FDG avidity (previously max SUV 7.76) And size from prior PET/CT, previously 2.9 cm. This likely in part represents posttreatment scarring. No additional FDG avid focal nodule or infiltrate. Airways patent. Abdomen and pelvis: Normal physiologic distribution of radiotracer in the gastrointestinal and genitourinary tracts. No FDG avid lymphadenopathy or mass lesion. Cholecystectomy clips noted. Atrophy of the pancreatic parenchyma. Photopenic 2.1 cm left adrenal nodule, unchanged in size and appearance from prior exam. This is consistent with a benign adenoma by density (series 2 image 113). Right adrenal gland normal. The uterus is surgically absent. No adnexal masses. Diverticulosis of the sigmoid and descending colon. Scattered diverticula in the colon also noted elsewhere. No pericolonic inflammatory change or gross evidence of bowel wall thickening. Atherosclerosis of the normal caliber abdominal aorta. Focal calcification in the subcutaneous tissue of the right anterior abdominal wall may relate to prior medication administration. Similar focus is noted in the left buttocks. Musculoskeletal: Degenerative changes of the spine. No FDG avid or destructive osseous lesion. IMPRESSION: 1. Follow-up PET/CT demonstrates significant decrease in FDG avidity and size at the site of primary malignancy in the posterior segment of the right upper lobe. Continued follow-up recommended though this likely represents significant treatment response. No FDG avid lymphadenopathy or evidence of metastatic disease. Electronically signed by: Huey Joshi M.D. 12/07/2017 1:18 PM Dictated Date/Time: 12/07/2017 1:04 PM
== END | disposition home or self-care (01) ==
LOC: C.PET 10:09
PROVIDERS: ATTEND Internal Medicine Hematology & Oncology
DX: C34.10 Malignant neoplasm of upper lobe, unspecified bronchus or lung (principal)

== ENCOUNTER → 2018-02-10 | Outpatient (CLI) | payer OTHER ==
[2018-02-10 10:47] LABS: BASO % 0.3 %; BASO ABS # 0.02 K/uL (0-0.2); EOS % 2.8 %; EOS ABS # 0.16 K/uL (0-0.5); HEMATOCRIT 32.5 % (37-47); HEMOGLOBIN 10.5 g/dL (12.0-16.0); IG# 0.03 K/uL (0.00-0.02); LYMPH % 33.2 %; LYMPH ABS # 1.91 K/uL (1.2-3.4); MEAN CELL VOLUME 93.9 fL (80-100); MEAN CORPUSCULAR HEMOGLOBIN 30.3 pg (25-34); MEAN CORPUSCULAR HGB CONC 32.3 g/dl (32-36); MEAN PLATELET VOLUME 10.3 fL (7.4-10.4); MONO % 8.9 %; MONO ABS # 0.51 K/uL (0.11-0.59); NEUT % 54.3 %; NEUT ABS # 3.13 K/uL (1.4-6.5); PLATELET COUNT 241 K/uL (130-400); RED CELL DISTRIBUTION WIDTH CV 15.2 % (11.5-14.5); RED CELL DISTRIBUTION WIDTH SD 51.9 fL (36.4-46.3); WHITE BLOOD COUNT 5.76 K/uL (4.8-10.8)
[2018-02-10 11:12] LABS: ALBUMIN 3.1 gm/dl (3.4-5.0); ALKALINE PHOSPHATASE 109 U/L (45-117); ALT/SGPT 17 U/L (12-78); AST/SGOT 14 U/L (15-37); BLOOD UREA NITROGEN 31 mg/dl (7-18); CALCIUM 9.1 mg/dl (8.5-10.1); CARBON DIOXIDE 24 mmol/L (21-32); CREATININE 1.48 mg/dl (0.60-1.20); GLUCOSE 132 mg/dl (70-99); POTASSIUM 4.3 mmol/L (3.5-5.1); SODIUM 140 mmol/L (136-145); TOTAL PROTEIN 7.7 gm/dl (6.4-8.2)
== END | disposition home or self-care (01) ==
LOC: C.LABSPEC 10:37
PROVIDERS: ATTEND Nurse Practitioner Family
DX: C34.10 Malignant neoplasm of upper lobe, unspecified bronchus or lung (principal)

== ENCOUNTER → 2018-03-13 | Outpatient (CLI) | payer OTHER ==
[2018-03-13 13:38] LABS: BASO % 0.5 %; BASO ABS # 0.03 K/uL (0-0.2); EOS % 1.8 %; EOS ABS # 0.12 K/uL (0-0.5); HEMATOCRIT 30.6 % (37-47); HEMOGLOBIN 9.9 g/dL (12.0-16.0); IG# 0.04 K/uL (0.00-0.02); LYMPH % 29.4 %; LYMPH ABS # 1.92 K/uL (1.2-3.4); MEAN CELL VOLUME 91.9 fL (80-100); MEAN CORPUSCULAR HEMOGLOBIN 29.7 pg (25-34); MEAN CORPUSCULAR HGB CONC 32.4 g/dl (32-36); MEAN PLATELET VOLUME 10.1 fL (7.4-10.4); MONO % 11.3 %; MONO ABS # 0.74 K/uL (0.11-0.59); NEUT % 56.4 %; NEUT ABS # 3.67 K/uL (1.4-6.5); PLATELET COUNT 199 K/uL (130-400); RED CELL DISTRIBUTION WIDTH CV 17.1 % (11.5-14.5); WHITE BLOOD COUNT 6.52 K/uL (4.8-10.8)
[2018-03-13 13:55] LABS: ALBUMIN 3.2 gm/dl (3.4-5.0); ALT/SGPT 18 U/L (12-78); AST/SGOT 12 U/L (15-37); BLOOD UREA NITROGEN 33 mg/dl (7-18); CALCIUM 8.3 mg/dl (8.5-10.1); CARBON DIOXIDE 22 mmol/L (21-32); CREATININE 1.64 mg/dl (0.60-1.20); GLUCOSE 167 mg/dl (70-99); POTASSIUM 3.7 mmol/L (3.5-5.1); SODIUM 139 mmol/L (136-145)
[2018-03-13 14:02] LABS: ALKALINE PHOSPHATASE 109 U/L (45-117); TOTAL PROTEIN 7.5 gm/dl (6.4-8.2)
== END | disposition home or self-care (01) ==
LOC: C.LABSPEC 13:31
PROVIDERS: ATTEND Internal Medicine Hematology & Oncology
DX: C34.10 Malignant neoplasm of upper lobe, unspecified bronchus or lung (principal)

== ENCOUNTER → 2018-03-13 | Outpatient (CLI) | payer OTHER ==
[~2018-03-13] MED LIST changes: +GADAVIST IV PRN
--- NOTE | 2018-03-13 16:59 | DIAGNOSTIC IMAGING REPORT ---
BRAIN COMBO HISTORY: 72 years-old Female VISUAL CHANGES, DIZZINESS, HX LUNG CA, R/O METS acute dizziness with headache and visual changes. History of non-small cell lung cancer. COMPARISON: PET CT 12/07/2017, PET CT 10/19/2017. TECHNIQUE: Multiplanar multisequence MRI of the brain was obtained both with and without the use of 10 mL Gadavist FINDINGS: Large field view finishing trimmer localizer images demonstrate no gross abnormality. Incidental note is made of cavum septum pellucidum. There is no restricted diffusion to suggest acute or subacute infarction. Motion degraded exam. Midline structures including the corpus callosum, brainstem, optic chiasm, pituitary and pineal glands appear unremarkable the sagittal T1 series. No cerebellar tonsillar herniation. Degenerative changes about the imaged cervical spine are noted. There is no acute intracranial hemorrhage, midline shift, abnormal extra axial collections, hydrocephalus or intracranial mass. Mild atrophy of the brain parenchyma. No significant T2/FLAIR signal of the malleus. Orbits are unremarkable. Trace bilateral mastoid effusions. Mild to moderate mucosal thickening of the ethmoid air cells and maxillary sinuses. Mild mucosal thickening of the sphenoid sinuses. The soft tissues and skull are unremarkable. There is no abnormal intra-axial or extra-axial enhancement identified to suggest metastasis cerebral venous sinuses appear patent.. IMPRESSION: 1. No acute intracranial abnormality. 2. No acute infarction or abnormal enhancement to suggest metastasis. 3. Trace bilateral mastoid effusions with paranasal sinus disease as above. The above report was generated using voice recognition software. It may contain grammatical, syntax or spelling errors. Electronically signed by: Deacon Stephens M.D. 03/13/2018 4:58 PM Dictated Date/Time: 03/13/2018 4:44 PM
== END | disposition home or self-care (01) ==
LOC: C.MRI 15:45
PROVIDERS: ATTEND Nurse Practitioner Family
DX: C34.10 Malignant neoplasm of upper lobe, unspecified bronchus or lung (principal)

== ENCOUNTER 2019-03-21 18:18 | Inpatient (IN) ==
[2019-03-21] MEDS ORDERED: ACETAMINOPHEN 1,000 MG/100 ML VIAL IV STA (18:43)
[2019-03-21] MEDS ORDERED: ONDANSETRON INJ 2 MG/ML 2 ML VIAL IV STA (18:43)
[2019-03-21] MEDS ORDERED: PROMETHAZINE HCL 6.25 MG in SODIUM CHLORIDE 0.9% 50 ML IV STA (18:43)
[2019-03-21] MEDS ORDERED: SODIUM CHLORIDE 0.9% 1000ML 1,000 ML IV SCH (18:45)
--- NOTE | 2019-03-21 19:29 | XRay Report ---
XR chest 1V portable CLINICAL HISTORY: 73 years-old Female presenting with weakness and vomiting, ill since chemotherapy. TECHNIQUE: Portable upright AP view of the chest was obtained. COMPARISON: 07/17/2018. FINDINGS: Atherosclerosis of the aortic arch. Cardiac silhouette mildly enlarged. No focal opacity. No large ef fusion or pneumothorax. Osteopenia suspected. IMPRESSION: 1. Cardiomegaly. No other convincing evidence of acute cardiopulmonary disease. Electronically signed by: Huey Joshi M.D. 03/21/2019 7:28 PM
[2019-03-21 19:39] LABS: Alanine Aminotransferase 12 U/L (12-78); Albumin Level 3.3 gm/dl (3.4-5.0); Aspartate Aminotransferase 12 U/L (15-37); Blood Urea Nitrogen 44 mg/dl (7-18); Calcium 8.2 mg/dl (8.5-10.1); Carbon Dioxide 22 mmol/L (21-32); Chloride 105 mmol/L (98-107); Creatinine Clr Calc Pharmacy 24.5 ml/min; Est GFR (African American) 23.4; Est GFR (Non-African American) 20.2; Glucose 142 mg/dl (70-99); Potassium 2.8 mmol/L (3.5-5.1); Sodium 137 mmol/L (136-145)
[2019-03-21] MEDS ORDERED: PROMETHAZINE 6.25 MG/50.25 ML NSS IV ONE (19:48)
[2019-03-21 19:50] LABS: Albumin Globulin Ratio 0.8 (0.9-2); Alkaline Phosphatase 79 U/L (45-117); Bilirubin,Total 0.7 mg/dl (0.2-1); Globulin 3.9 gm/dl (2.5-4.0); Total Protein 7.2 gm/dl (6.4-8.2); Troponin I < 0.015 ng/ml (0-0.045)
[2019-03-21 19:51] LABS: Hematocrit (blood only) 21.5 % (37-47); Hemoglobin 7.6 g/dL (12.0-16.0); Mean Corpuscular Hemoglobin 31.8 pg (25-34); Mean Corpuscular Hgb Conc 35.3 g/dL (32-36); Mean Platelet Volume 11.6 fL (7.4-10.4); Platelet Count 60 K/uL (130-400); RDW Standard Deviation 56.3 fL (36.4-46.3); Red Blood Count 2.39 M/uL (4.2-5.4)
[2019-03-21 19:52] LABS: Eosinophils # (auto) 0.09 K/uL (0-0.5); Lymphocytes % (auto) 55.6 %; Monocytes # (auto) 0.02 K/uL (0.11-0.59); Monocytes % (auto) 2.2 %; Neutrophils # (auto) 0.29 K/uL (1.4-6.5); Neutrophils % (auto) 32.2 %; Platelet Estimate Decreased (Normal); Tear Drop Cells 1+
--- NOTE | 2019-03-21 21:03 | History & Physical Report ---
Date of Service March 21, 2019 Assessment & Plan (1) Pancytopenia: 73-year-old female with history of non-small cell lung cancer on chemotherapy, CKD 3, COPD, hypertension, diabetes presents with fever, body aches, nausea, diarrhea since receiving chemo on 03/06/2019, x14 days. Neutropenic fever: Nausea, diarrhea, fever Febrile to 100.5 at home, temp in the ED 37.3 WBC 0.9, ANC 0.29 Chest x-ray: Cardiomegaly otherwise no acute findings Blood cultures x2 pending UA pending C. difficile pending Started on aztreonam (better anaerobic coverage) And vancomycin empiric coverage Pancytopenia likely from chemotherapy related bone marrow suppression, never had a bone marrow biopsy to rule out hematologic disorder per chart review WBC 0.9, ANC 0.29; hemoglobin 7.6; platelet 60 Consented for blood Hematology consulted Continue to monitor and transfuse for hemoglobin less than 7 CHRISTIAN in the setting of CKD 3 likely in the setting of dehydration related to diarrhea BUN/creatinine 44/2.3 (baseline creatinine 1.3) GFR 20 Received 1 L normal saline in the ED IV fluids, LR 100 cc/h Hypokalemia Potassium 2.8 Repleted Lung adenocarcinoma since 2016 On maintenance chemotherapy Premetrexed every 3 weeks since February 2018 Continue home Grandin for pain Hypertension Continue home carvedilol Hold home Lasix in the setting of CHRISTIAN DM2 Hold home medication Started on SSI COPD Continue home PRN albuterol, Combivent Respimat, theophylline Depression Continue home sertraline FEN/GI: On LR 100 cc/h, diabetic diet DVT prophylaxis: Chemical contraindicated in the setting of pancytopenia, SCDs, encourage ambulation Code: Okay with cardiac resuscitation, no intubation/mechanical ventilation Disposition: MedSur (2) Neutropenic fever: (3) Vomiting: (4) Acute renal failure (ARF): (5) Chronic renal failure, stage 3 (moderate): (6) Hypertension: (7) Depression: (8) Diabetes: (9) COPD (chronic obstructive pulmonary disease): History of Present Illness Chief Complaint: Fever, diarrhea, vomiting Primary Care Provider: Arthur Cruz 73-year-old female with history of non-small cell lung cancer on chemotherapy, CKD 3, COPD, hypertension, diabetes presents with fever, body aches, nausea, diarrhea since receiving chemo on 03/06/2019, x14 days. Reports receiving transfusion the day before chemo. As usual she developed body aches, mouth sores, vomiting, diarrhea but it did not improve as he usually does in 1 to 2 days. She continued to have dry heaves despite taking Zofran. Vomiting is green in color and nonbloody. Diarrhea is nonbloody, loose and yellow and she has about 2-4 episodes per day. Associated with fever of 100.52 days ago and 99 o yesterday, decreased appetite and inability to keep anything down, lightheadedness, suprapubic region abdominal pain. Denies any headache, chest pain, shortness of breath, dysuria, hematuria, increased urinary frequency. No recent travel or camping. Per patient has been receiving chemo every 3 weeks since last February 2018. She had 6 weeks off. In October but her cancer came back so she supposed to keep receiving chemo. Sees Dr. So. Did not get radiation or surgery. Surgical history: Cholecystectomy Social history: Has smoked since age 18 with a 5-year period of quitting, denies alcohol or recreational drug use Allergies Allergy/AdvReac Type Severity Reaction Status Date / Time adhesive Allergy Unknown PULLS SKIN Verified 03/21/19 19:30 OFF Penicillins Allergy Unknown TONGUE Verified 03/22/19 11:03 SWELLING azithromycin AdvReac Nausea Verified 03/21/19 19:30 Home Medications Home Medications Medication Instructions Recorded Confirmed Type albuterol sulfate 2.5 mg INHALATION Q4H PRN 07/17/18 03/21/19 History carvedilol 6.25 mg PO BID 07/17/18 03/21/19 History folic acid 1 mg PO QAM 07/17/18 03/21/19 History furosemide 20 mg PO QAM 07/17/18 03/21/19 History hydrocodone-acetaminophen 1 tab PO BID PRN 07/17/18 03/21/19 History ipratropium-albuterol [Combivent 1 puff INHALATION Q4H PRN 07/17/18 03/21/19 History Respimat] ondansetron 8 mg PO Q8H PRN 07/17/18 03/21/19 History ranitidine HCl 1 tab PO BID 07/17/18 03/21/19 History sertraline 100 mg PO QAM 07/17/18 03/21/19 History sitagliptin [Januvia] 50 mg PO QAM 07/17/18 03/21/19 History theophylline 300 mg PO BID 07/17/18 03/21/19 History Past Med/Surg History Medical History Chronic renal failure, stage 3 (moderate) Depression COPD (chronic obstructive pulmonary disease) (Chronic) Diabetes (Chronic) Arthritis (Chronic) Lung cancer Neutropenic fever Orthostatic hypotension Right knee DJD Surgical History Hx of right knee surgery Family History Other Diabetes Heart disease Hypertension Lung disease Social History Preferred Language: Hungarian Communication Ability: Effective [employer] Helper Required: No Beliefs That Will Affect Care: None marital status: / Current Living Situation: Family Current Living Situation Comment: Granddaughter Other Information That Helps Us Care for You: No Feels Safe at Home: Yes Safety Concerns: Feels Safe At This Time Smoking Status: Current some day smoker Tobacco Type: cigarettes ; Cigarettes Per Day: 10 ; Do You Dip or Chew Tobacco: No ; Second Hand Exposure: No ; Tobacco Cessation Education Requested by Patient: No (Pt states she has not smoked since last hospitalization 03/13/19) Hx Alcohol Use: No Hx Substance Use: No Review of Systems Review of Systems: As per HPI Physical Exam Physical Exam: General: In NAD Neuro: A&O x 4 Pulm: CTAB equal breath sounds bilaterally CV: RRR, no m/r/g, cap refill 4 secs Abdomen:+BS, no TTP in all quadrants, non-distended LE: no LE edema, no calf TTP Of note: no chemo port Results & Data Vital Signs (Past 12 Hours) Vital Signs Temp Pulse Pulse Resp BP BP Pulse Ox 03/21/19 20:00 68 18 109/64 03/21/19 19:57 68 19 107/58 L 03/21/19 19:30 68 16 03/21/19 19:27 67 16 95/61 L 03/21/19 18:56 71 15 03/21/19 18:43 97 03/21/19 18:41 76 18 119/65 97 03/21/19 18:40 70 19 119/65 03/21/19 18:23 37.3 C 79 18 98/58 L 98 Laboratory Results Abnormal lab results 03/21/19 03/21/19 Range/Units 18:57 18:57 WBC 0.90 L* (4.8-10.8) K/uL RBC 2.39 L (4.2-5.4) M/uL Hgb 7.6 L (12.0-16.0) g/dL Hct 21.5 L (37-47) % RDW Std Deviation 56.3 H (36.4-46.3) fL RDW Coeff of Maye 18.0 H (11.5-14.5) % Plt Count 60 L (130-400) K/uL MPV 11.6 H (7.4-10.4) fL Neut # (Auto) 0.29 L* (1.4-6.5) K/uL Lymph # (Auto) 0.50 L (1.2-3.4) K/uL [place] # (Auto) 0.02 L (0.11-0.59) K/uL Platelet Estimate Decreased L (Normal) Potassium 2.8 L (3.5-5.1) mmol/L BUN 44 H (7-18) mg/dl Creatinine 2.31 H (0.6-1.2) mg/dl Glucose 142 H (70-99) mg/dl Calcium 8.2 L (8.5-10.1) mg/dl AST 12 L (15-37) U/L Albumin 3.3 L (3.4-5.0) gm/dl Albumin/Globulin Ratio 0.8 L (0.9-2) Diagnostic Findings XR chest 1V portable CLINICAL HISTORY: 73 years-old Female presenting with weakness and vomiting, ill since chemotherapy. TECHNIQUE: Portable upright AP view of the chest was obtained. COMPARISON: 07/17/2018. FINDINGS: Atherosclerosis of the aortic arch. Cardiac silhouette mildly enlarged. No focal opacity. No large effusion or pneumothorax. Osteopenia suspected. IMPRESSION: 1. Cardiomegaly. No other convincing evidence of acute cardiopulmonary disease. Code Status & VTE Plan Code Status Patient okay with CPR/cardiac resuscitation but does not desire intubation/mechanical ventilation per discussion tonight Supervising Physician Co-Signing Physician Notes Attending addendum: I have physically seen this patient, have supervised the medical residents activities, and agree with the H&P unless as otherwise noted. Assessment and Plan: Neutropenic fever- Neutropenic precautions. Placed on vancomycin IV and aztreonam IV. History of penicillin and azithromycin allergies. Follow urine cultures and blood cultures. Order C. difficile and stool culture. Pancytopenia- Hemoglobin 7.6, platelets 60, ANC 0.29. Good vital signs at this point. Transfuse if hemoglobin drops below 7 or change in vital signs. Consult hematology/oncology. Remainder of orders and medications as noted. PG Care Time/CCT Total # of Minutes Spent Total Time Spent with Patient: Total time spent is greater than 50% in coordination of care (as documented) at patient's floor/unit and/or counseling patient: Resident Activity Tracking Resident Involvement: Resident Care Provided Care Provided: Adult Hospital Medicine (1) Acute renal failure (ARF) Acute renal failure type: unspecified Qualified Code(s): N17.9 - Acute kidney failure, unspecified (2) Vomiting Nausea presence: with nausea Vomiting Intractability: non-intractable Vomiting type: unspecified Qualified Code(s): R11.2 - Nausea with vomiting, unspecified
[2019-03-21 21:31] LABS: Appearance Urine Cloudy (Clear); Bacteria Urine Automated 4+ (Negative); Bilirubin Urine Negative (Negative); Blood Urine Negative (Negative); Color Urine Yellow; Epithelial Cell Urine Auto >30 /lpf (0-5); Glucose Urine UA Negative (Negative); Ketones Urine Negative (Negative); Leukocyte Esterase Urine Negative (Negative); Nitrite Urine Positive (Negative); Protein Urine Negative (Negative); RBC Urine Automated 0-4 /hpf (0-4); Specific Gravity Urine 1.018 (1.000-1.030); Urobilinogen Urine Negative (Negative)
[2019-03-22] MEDS ORDERED: POTASSIUM CHLORIDE 20 MEQ TABCR PO STA (01:12)
[2019-03-22] MEDS ORDERED: VANCOMYCIN HCL 1,000 MG in SODIUM CHLORIDE 0.9% 250 ML IV SCH (01:12)
[2019-03-22] MEDS ORDERED: ACETAMINOPHEN 325 MG TAB PO PRN (01:12)
[2019-03-22] MEDS ORDERED: SODIUM CHLORIDE 0.9% 250 ML IV PRN ×2 (01:12→08:48)
[2019-03-22] MEDS ORDERED: ALBUTEROL 0.083% NEBU SOLN 3 ML VIAL INH PRN (01:12)
[2019-03-22] MEDS ORDERED: VANCOMYCIN CONSULT ACTIVE PRN (01:12)
[2019-03-22] MEDS ORDERED: PROCHLORPERAZINE 5 MG in SYRINGE 4 ML IV PRN (01:12)
[2019-03-22] MEDS ORDERED: HYDROCODONE/ACETAMINOPHEN 10/325 TAB PO PRN (01:12)
[2019-03-22 01:44] LABS: INR 1.1 (0.9-1.1); Partial Thromboplastin Ratio 1.2; Partial Thromboplastin Time 31.7 Seconds (21.0-31.0)
[2019-03-22] MEDS ORDERED: GLUCAGON FOR INJ 1 MG VIAL SQ PRN (01:45)
[2019-03-22] MEDS ORDERED: GLUCOSE 40% GEL 15 GM TUBE PO PRN (01:45)
[2019-03-22] MEDS ORDERED: GLUCOSE 10 TABS/TUBE PO PRN (01:45)
[2019-03-22] MEDS ORDERED: DEXTROSE 50% 50 ML SYRINGE IV PRN (01:45)
[2019-03-22] MEDS ORDERED: CARBOHYDRATES FOR HYPOGLYCEMIA PO PRN (01:45)
[2019-03-22] MEDS ORDERED: AZTREONAM CONSULT ACTIVE PRN (01:48)
[2019-03-22] MEDS ORDERED: AZTREONAM 2,000 MG in DEXTROSE 5% 100 ML IV SCH (02:00)
[2019-03-22] MEDS ORDERED: VANCOMYCIN HCL 2,000 MG in SODIUM CHLORIDE 0.9% 500 ML IV SCH (02:00)
[2019-03-22] MEDS: LACTATED RINGER'S 1,000 ML IV SCH ×3 (02:05→20:53)
[2019-03-22] MEDS: POTASSIUM CHLORIDE / WTR 10 MEQ/100 ML PLCT IV SCH ×4 (02:06→05:37)
[2019-03-22] MEDS: THEOPHYLLINE 300MG EXTENDED REL TAB PO SCH ×3 (02:09→20:33)
[2019-03-22 07:57] LABS: Hematocrit (blood only) 18.9 % (37-47); Hemoglobin 6.7 g/dL (12.0-16.0); Mean Corpuscular Hemoglobin 31.8 pg (25-34); Mean Corpuscular Hgb Conc 35.4 g/dL (32-36); Mean Corpuscular Volume 89.6 fL (80-100); Mean Platelet Volume 12.1 fL (7.4-10.4); Platelet Count 45 K/uL (130-400); RDW Standard Deviation 56.6 fL (36.4-46.3); Red Blood Count 2.11 M/uL (4.2-5.4); White Blood Count 0.84 K/uL (4.8-10.8)
[2019-03-22 08:01] LABS: Eosinophils # (auto) 0.07 K/uL (0-0.5); Eosinophils % (auto) 8.3 %; Lymphocytes # (auto) 0.58 K/uL (1.2-3.4); Monocytes # (auto) 0.02 K/uL (0.11-0.59); Monocytes % (auto) 2.4 %; Neutrophils # (auto) 0.17 K/uL (1.4-6.5); Neutrophils % (auto) 20.3 %; Ovalocytes 1+; Tear Drop Cells 1+
[2019-03-22 08:11] LABS: BUN Creatinine Ratio 20.5 (10-20); Calcium 7.9 mg/dl (8.5-10.1); Est GFR (African American) 25.9; Est GFR (Non-African American) 22.4; Potassium 3.7 mmol/L (3.5-5.1)
[2019-03-22] MEDS: INSULIN ASPART 100 UNITS/ML 3 ML PEN SC SCH ×4 (09:29→21:14)
[2019-03-22] MEDS: CARVEDILOL 6.25 MG TAB PO SCH ×2 (09:33→20:33)
[2019-03-22] MEDS: FOLIC ACID 1 MG TAB PO SCH (09:33)
[2019-03-22] MEDS: SERTRALINE HCL 100 MG TABLET PO SCH (09:33)
[2019-03-22] MEDS ORDERED: AZTREONAM 1,000 MG in DEXTROSE 5% 100 ML IV SCH (10:00)
--- NOTE | 2019-03-22 10:05 | Pharmacy Report ---
Pharmacy Abx Initial Consult - Date of Service March 22, 2019 - Pharmacy Dosing Scope Date of Consult: 03/22 Consultation requested by: Dr. Naik Pharmacy is consulted to initiate vancomycin and aztreonam IV dosing therapy, order appropriate labs and adjust drug dose/frequency. - Subjective The patient is a 73 year old F admitted on 03/21/19 21:18. - Objective Height: 5 ft 6 in Weight: 87.6 kg Vital Signs (Past 12hrs): Vital Signs Temp Pulse Pulse Pulse Resp BP BP 03/22/19 09:36 36.9 C 79 16 111/63 03/22/19 09:31 79 111/63 03/22/19 07:58 36.9 C 71 16 113/69 03/22/19 00:20 36.8 C 60 16 106/60 03/22/19 00:00 66 24 97/61 L 03/21/19 23:46 37.2 C 03/21/19 23:30 67 21 110/58 L 03/21/19 23:00 71 24 03/21/19 22:30 71 20 122/71 03/21/19 22:00 73 23 92/75 L Pulse Ox 03/22/19 09:36 97 03/22/19 09:31 03/22/19 07:58 98 03/22/19 00:20 96 03/22/19 00:00 96 03/21/19 23:46 03/21/19 23:30 96 03/21/19 23:00 92 03/21/19 22:30 94 03/21/19 22:00 97 Lab Results (24hrs): Laboratory Tests (24 Hours) 03/22/19 03/22/19 03/21/19 06:49 06:49 18:57 WBC 0.84 L* Neut # (Auto) 0.17 L* Creatinine 2.12 H 2.31 H Est Cr Clr Drug Dosing 26.0 24.5 03/21/19 18:57 WBC 0.90 L* Neut # (Auto) 0.29 L* Creatinine Est Cr Clr Drug Dosing Micro Results: 03/21/19 21:08 Urine Culture - Pending Urine,Clean Catch 03/21/19 20:01 Aerobic Blood Culture - Pending Blood Anaerobic Blood Culture - Pending 03/21/19 18:57 Aerobic Blood Culture - Pending Blood Anaerobic Blood Culture - Pending - Assessment & Plan Assessment 73 yr old female with h/o of non-small cell lung cancer on chemotherapy admitted with pancytopenia, diarrhea and fever at home. Pt has been started on vancomycin and aztreonam IV for febrile neutropenia (h/o penicillin allergy - pt has tolerated cefepime in the past). Blood and urine cultures are pending. Patient was given a loading dose of vancomycin 2000 mg IV. Case discussed with Santi Tsai. Empiric Vancomycin IV is indicated if there is concern for pneumonia, SSTI, suspected catheter related infection, or if patient is hemodynamically unstable. Since none of the above are of concern for this patient, vancomycin will be discontinued and aztreonam will be changed to cefepime + flagyl for better GI coverage. Plan Stop Vancomycin Stop Aztreonam Start cefepime 2000 mg IV q8h and flagyl 500 mg IV q8h Pharmacy will continue to follow and will adjust dose/frequency as necessary. Thank you.
--- NOTE | 2019-03-22 12:08 | Emergency Department Note ---
Entered by Car Zambrano acting as a scribe for History of Present Illness General Chief complaint: Syncope Stated complaint: SYNCOPE,WEAK, SICK Time Seen by Provider: 03/21/19 18:36 Source: patient History of Present Illness Onset (ago): day(s) 7 Pain Consistency: + intermittent Maximum Pain Intensity: 0 Quality: + other (diarrhea and dehydration) Associated symptoms: + nausea/vomiting and + other (dizziness); no chest pain The patient is a 73 y/o female who presents to the ED w/ CC of intermittent diarrhea and dehydration beginning 7 days ago. The patient states she is currently receiving chemotherapy and gets treatment every three weeks. She reports she was supposed to have chemotherapy last Tuesday, but she was found to be anemic and had 2 bags of blood transfused instead. The patient notes she then received chemotherapy last Tuesday. She states she normally gets nauseous and dehydrated after chemotherapy, but it normally resolves itself after a few days. The patient reports she started vomiting , and she took Zofran. She notes after taking Zofran she stopped vomiting but started dry heaving. The patient states she then developed diarrhea that did not resolve with Imodium. She reports has not eaten since yesterday. She reports she also developed lower abdominal pain and denies urinary symptoms such as increased frequency and pain with urination. The patient notes since yesterday, she has been very dizzy and has to hang on to things. The patient reports her chemotherapy doctor is Dr. Simon. She denies chest pain. Home Medications Home Medications Medication Instructions Recorded Confirmed Type albuterol sulfate 2.5 mg INHALATION Q4H PRN 07/17/18 03/21/19 History carvedilol 6.25 mg PO BID 07/17/18 03/21/19 History folic acid 1 mg PO QAM 07/17/18 03/21/19 History furosemide 20 mg PO QAM 07/17/18 03/21/19 History hydrocodone-acetaminophen 1 tab PO BID PRN 07/17/18 03/21/19 History ipratropium-albuterol [Combivent 1 puff INHALATION Q4H PRN 07/17/18 03/21/19 History Respimat] ondansetron 8 mg PO Q8H PRN 07/17/18 03/21/19 History ranitidine HCl 1 tab PO BID 07/17/18 03/21/19 History sertraline 100 mg PO QAM 07/17/18 03/21/19 History sitagliptin [Januvia] 50 mg PO QAM 07/17/18 03/21/19 History theophylline 300 mg PO BID 07/17/18 03/21/19 History Allergies Allergy/AdvReac Type Severity Reaction Status Date / Time adhesive Allergy Unknown PULLS SKIN Verified 03/21/19 19:30 OFF Penicillins Allergy Unknown TONGUE Verified 03/22/19 11:03 SWELLING azithromycin AdvReac Nausea Verified 03/21/19 19:30 Past Med/Surg History Medical History Chronic renal failure, stage 3 (moderate) Depression COPD (chronic obstructive pulmonary disease) (Chronic) Diabetes (Chronic) Arthritis (Chronic) Lung cancer Neutropenic fever Orthostatic hypotension Right knee DJD Surgical History Hx of right knee surgery Family History Other Diabetes Heart disease Hypertension Lung disease Social History Preferred Language: Martiniquais Communication Ability: Effective Preprint Analyst Required: No Beliefs That Will Affect Care: None Current Living Situation: Family Current Living Situation Comment: Granddaughter Other Information That Helps Us Care for You: No Feels Safe at Home: Yes Safety Concerns: Feels Safe At This Time Smoking Status: Current some day smoker Tobacco Type: cigarettes ; Cigarettes Per Day: 10 ; Do You Dip or Chew Tobacco: No ; Second Hand Exposure: No ; Tobacco Cessation Education Requested by Patient: No (Pt states she has not smoked since last hospitalization 03/13/19) Hx Alcohol Use: No Hx Substance Use: No Review of Systems See HPI for pertinent positives & negatives. and A total of 10 systems reviewed and were otherwise negative Physical Exam Vital Signs Vital Signs - 24 hr 03/21/19 18:23 03/21/19 18:40 03/21/19 18:41 Temperature 37.3 C Temperature Source Oral Sepsis Recent Fever Within 48 Hours No Sepsis New/Unexplained Change in Mental Status No Sepsis Action Taken by Nursing No Action Required Pulse Rate 79 70 Pulse Rate [Apical] 76 Pulse Rate from SpO2 Sensor Pulse Rhythm [Apical] Regular Pulse Strength [Apical] Normal Respiratory Rate 18 19 18 Respiratory Effort / Characteristics Non-Labored Respiratory Depth Normal Respiratory Pattern Regular Blood Pressure 98/58 L 119/65 Blood Pressure [Right Arm] 119/65 Blood Pressure Mean 71 83 Blood Pressure Mean [Right Arm] 83 Pulse Oximetry 98 97 Oxygen Delivery Method Room Air Room Air Oxygen Flow Rate 97 03/21/19 18:43 03/21/19 18:56 03/21/19 19:27 Temperature Temperature Source Sepsis Recent Fever Within 48 Hours Sepsis New/Unexplained Change in Mental Status Sepsis Action Taken by Nursing Pulse Rate 71 67 Pulse Rate [Apical] Pulse Rate from SpO2 Sensor Pulse Rhythm [Apical] Pulse Strength [Apical] Respiratory Rate 15 16 Respiratory Effort / Characteristics Respiratory Depth Respiratory Pattern Blood Pressure 95/61 L Blood Pressure [Right Arm] Blood Pressure Mean 72 Blood Pressure Mean [Right Arm] Pulse Oximetry 97 Oxygen Delivery Method Room Air Oxygen Flow Rate 03/21/19 19:30 03/21/19 19:57 03/21/19 20:00 Temperature Temperature Source Sepsis Recent Fever Within 48 Hours Sepsis New/Unexplained Change in Mental Status Sepsis Action Taken by Nursing Pulse Rate 68 68 68 Pulse Rate [Apical] Pulse Rate from SpO2 Sensor Pulse Rhythm [Apical] Pulse Strength [Apical] Respiratory Rate 16 19 18 Respiratory Effort / Characteristics Respiratory Depth Respiratory Pattern Blood Pressure 107/58 L 109/64 Blood Pressure [Right Arm] Blood Pressure Mean 74 79 Blood Pressure Mean [Right Arm] Pulse Oximetry Oxygen Delivery Method Oxygen Flow Rate 03/21/19 20:30 03/21/19 21:00 Temperature Temperature Source Sepsis Recent Fever Within 48 Hours Sepsis New/Unexplained Change in Mental Status Sepsis Action Taken by Nursing Pulse Rate 68 69 Pulse Rate [Apical] Pulse Rate from SpO2 Sensor 68 69 Pulse Rhythm [Apical] Pulse Strength [Apical] Respiratory Rate 21 23 Respiratory Effort / Characteristics Respiratory Depth Respiratory Pattern Blood Pressure 112/65 123/85 Blood Pressure [Right Arm] Blood Pressure Mean 80 97 Blood Pressure Mean [Right Arm] Pulse Oximetry 98 97 Oxygen Delivery Method Oxygen Flow Rate GENERAL: Patient is in no acute distress. HEENT: No acute trauma, normocephalic atraumatic, mucous membranes moist, no nasal congestion, no scleral icterus. NECK: No stridor, no adenopathy, no meningismus, trachea is midline. LUNGS: Clear to auscultation bilaterally, no wheeze, no rhonchi, breath sounds equal. HEART: Without murmurs gallops or rubs, regular rate and rhythm. ABDOMEN: Soft, nontender, bowel sounds positive, no hernias, no peritonitis. EXTREMITIES: No cyanosis or edema, full range of motion of all the joints without pain or difficulty, no signs for acute trauma. NEUROLOGIC: Oriented x 3, no acute motor or sensory deficits, no focal weakness. SKIN: No rash, no jaundice, no diaphoresis. Pale. Course 183: Past medical records reviewed. The patient was evaluated in room C05. A complete history and physical exam was performed. 1958: Upon reevaluation, I discussed findings and results with the patient. She verbalized agreement of the treatment plan. The patient will be evaluated for further management and care. 2002: I discussed the patient's case with Dr. Connor, [facility] Hospitalist. The patient will be evaluated for further management and care. Administered Medications Carvedilol (Coreg) 6.25 mg PO BID SIMONA Stop: 04/21/19 08:59 Last Admin: 03/22/19 09:33 Dose: 6.25 mg Documented by: [id number] Folic Acid (Folvite) 1 mg PO QAM SIMONA Stop: 04/21/19 08:59 Last Admin: 03/22/19 09:33 Dose: 1 mg Documented by: [id number] Lactated Ringer's (Lr) 1,000 mls @ 100 mls/hr IV .Q10H SIMONA Stop: 04/21/19 01:11 Last Infusion: 03/22/19 10:01 Dose: 0 mls/hr Documented by: [id number] Admin: 03/22/19 02:05 Dose: 100 mls/hr Documented by: [id number] Insulin Aspart (Novolog Flexpen) 0 units SC ACHS SIMONA Stop: 04/21/19 07:29 Last Admin: 03/22/19 09:29 Dose: 5 units Documented by: [id number] Cosigned by: [id number] Ranitidine HCl (Zantac) 150 mg PO BID SIMONA Stop: 04/21/19 01:11 Last Admin: 03/22/19 09:20 Dose: 150 mg Documented by: [id number] Admin: 03/22/19 02:09 Dose: 150 mg Documented by: [id number] Sertraline HCl (Zoloft) 100 mg PO QAM SIMONA Stop: 04/21/19 08:59 Last Admin: 03/22/19 09:33 Dose: 100 mg Documented by: [id number] Theophylline (Ho-Dur Extended Rel) 300 mg PO BID SIMONA Stop: 04/21/19 01:11 Last Admin: 03/22/19 09:20 Dose: 300 mg Documented by: [id number] Admin: 03/22/19 02:09 Dose: 300 mg Documented by: [id number] Discontinued Medications Acetaminophen (Ofirmev) 1,000 mg in 100 mls @ 400 mls/hr IV NOW STA Stop: 03/21/19 18:57 Last Infusion: 03/21/19 20:05 Dose: 0 mls/hr Documented by: [id number] Admin: 03/21/19 19:24 Dose: 400 mls/hr Documented by: [id number] Promethazine HCl 6.25 mg/ (Sodium Chloride) 50.25 mls @ 201 mls/hr IV NOW STA Stop: 03/21/19 18:57 Last Infusion: 03/21/19 20:25 Dose: 0 mls/hr Documented by: [id number] Admin: 03/21/19 20:07 Dose: 201 mls/hr Documented by: [id number] Sodium Chloride (Nss 1000ml) 1,000 mls @ 999 mls/hr IV .Q1H1M SIMONA Stop: 03/21/19 19:45 Last Infusion: 03/21/19 20:25 Dose: 0 mls/hr Documented by: [id number] Admin: 03/21/19 19:24 Dose: 999 mls/hr Documented by: [id number] Potassium Chloride (K Fuentes / Wtr) 10 meq in 100 mls @ 100 mls/hr IV Q1H SIMONA Stop: 03/22/19 05:11 Last Infusion: 03/22/19 06:40 Dose: 0 mls/hr Documented by: [id number] Admin: 03/22/19 05:37 Dose: 100 mls/hr Documented by: [id number] Infusion: 03/22/19 05:31 Dose: 100 mls/hr Documented by: [id number] Admin: 03/22/19 04:31 Dose: 100 mls/hr Documented by: [id number] Infusion: 03/22/19 04:29 Dose: 100 mls/hr Documented by: [id number] Admin: 03/22/19 03:29 Dose: 100 mls/hr Documented by: [id number] Infusion: 03/22/19 03:06 Dose: 100 mls/hr Documented by: [id number] Admin: 03/22/19 02:06 Dose: 100 mls/hr Documented by: [id number] Aztreonam 2,000 mg/ Dextrose 110 mls @ 100 mls/hr IV TODAY@0200 [facility]; Protocol Stop: 03/22/19 03:05 Last Infusion: 03/22/19 03:15 Dose: 0 mls/hr Documented by: [id number] Admin: 03/22/19 02:05 Dose: 100 mls/hr Documented by: [id number] Vancomycin HCl 2,000 mg/ (Sodium Chloride) 540 mls @ 200 mls/hr IV TODAY@0200 [facility] Stop: 03/22/19 04:41 Last Infusion: 03/22/19 05:38 Dose: 0 mls/hr Documented by: [id number] Admin: 03/22/19 02:41 Dose: 200 mls/hr Documented by: [id number] Aztreonam 1,000 mg/ Dextrose 110 mls @ 110 mls/hr IV Q8H [facility] Stop: 03/24/19 09:59 Last Infusion: 03/22/19 10:45 Dose: 0 mls/hr Documented by: [id number] Admin: 03/22/19 09:17 Dose: 110 mls/hr Documented by: [id number] Ondansetron HCl (Zofran) 4 mg IV NOW STA Stop: 03/21/19 18:44 Last Admin: 03/21/19 19:23 Dose: 4 mg Documented by: [id number] Potassium Chloride (Klor-Con M20) 40 meq PO NOW STA Stop: 03/22/19 01:13 Last Admin: 03/22/19 02:08 Dose: 40 meq Documented by: [id number] Promethazine HCl (Phenergan) Confirm Administered Dose 6.25 mg IV .STK-MED ONE Stop: 03/21/19 19:49 Last Admin: 03/21/19 20:06 Dose: Not Given Documented by: [id number] Medical Decision Making Differential Diagnosis Differential diagnosis includes: dehydration, renal or liver failure, electrolyte imbalance, UTI, TN, orthostasis, sepsis, chemo reaction. Medical Records Attestation: I reviewed the patient's medical records. Home Medications Current Medication List: was personally reviewed by me Laboratory Data Attestation: I reviewed the patient's lab results. Result diagrams: 03/22/19 06:49 03/22/19 06:49 Lab Results 03/21/19 03/21/19 03/21/19 Range/Units 18:57 18:57 18:57 WBC 0.90 L* (4.8-10.8) K/uL RBC 2.39 L (4.2-5.4) M/uL Hgb 7.6 L (12.0-16.0) g/dL Hct 21.5 L (37-47) % MCV 90.0 (80-100) fL MCH 31.8 (25-34) pg MCHC 35.3 (32-36) g/dL RDW Std Deviation 56.3 H (36.4-46.3) fL RDW Coeff of Maye 18.0 H (11.5-14.5) % Plt Count 60 L (130-400) K/uL MPV 11.6 H (7.4-10.4) fL Immature Gran % (Auto) 0.0 % Neut % (Auto) 32.2 % Lymph % (Auto) 55.6 % Barren % (Auto) 2.2 % Eos % (Auto) 10.0 % Baso % (Auto) 0.0 % Immature Gran # (Auto) 0.00 (0.00-0.02) K/uL Neut # (Auto) 0.29 L* (1.4-6.5) K/uL Lymph # (Auto) 0.50 L (1.2-3.4) K/uL Barren # (Auto) 0.02 L (0.11-0.59) K/uL Eos # (Auto) 0.09 (0-0.5) K/uL Baso # (Auto) 0.00 (0-0.2) K/uL Platelet Estimate Decreased L (Normal) Tear Drop Cells 1+ Sodium 137 (136-145) mmol/L Potassium 2.8 L (3.5-5.1) mmol/L Chloride 105 (98-107) mmol/L Carbon Dioxide 22 (21-32) mmol/L Anion Gap 10.0 (3-11) BUN 44 H (7-18) mg/dl Creatinine 2.31 H (0.6-1.2) mg/dl Est Cr Clr Drug Dosing 24.5 ml/min Est GFR ( Amer) 23.4 Est GFR (Non-Af Amer) 20.2 BUN/Creatinine Ratio 19.0 (10-20) Glucose 142 H (70-99) mg/dl Lactate 1.0 (0.4-2.0) mmol/L Calcium 8.2 L (8.5-10.1) mg/dl Magnesium 2.0 (1.8-2.4) mg/dl Total Bilirubin 0.7 (0.2-1) mg/dl AST 12 L (15-37) U/L ALT 12 (12-78) U/L Alkaline Phosphatase 79 (45-117) U/L Troponin I < 0.015 (0-0.045) ng/ml Total Protein 7.2 (6.4-8.2) gm/dl Albumin 3.3 L (3.4-5.0) gm/dl Globulin 3.9 (2.5-4.0) gm/dl Albumin/Globulin Ratio 0.8 L (0.9-2) TSH 1.740 (0.300-4.500) uIu/ml Urine Color Urine Appearance (Clear) Urine pH (4.5-7.5) Ur Specific [place] (1.000-1.030) Urine Protein (Negative) Urine Glucose (UA) (Negative) Urine Ketones (Negative) Urine Blood (Negative) Urine Nitrite (Negative) Urine Bilirubin (Negative) Urine Urobilinogen (Negative) Ur Leukocyte Esterase (Negative) Urine WBC (Auto) (0-5) /hpf Urine RBC (Auto) (0-4) /hpf U Hyaline Cast (Auto) (0-5) /lpf U Epithel Cells (Auto) (0-5) /lpf Urine Bacteria (Auto) (Negative) 03/21/19 Range/Units 21:08 WBC (4.8-10.8) K/uL RBC (4.2-5.4) M/uL Hgb (12.0-16.0) g/dL Hct (37-47) % MCV (80-100) fL MCH (25-34) pg MCHC (32-36) g/dL RDW Std Deviation (36.4-46.3) fL RDW Coeff of Maye (11.5-14.5) % Plt Count (130-400) K/uL MPV (7.4-10.4) fL Immature Gran % (Auto) % Neut % (Auto) % Lymph % (Auto) % Barren % (Auto) % Eos % (Auto) % Baso % (Auto) % Immature Gran # (Auto) (0.00-0.02) K/uL Neut # (Auto) (1.4-6.5) K/uL Lymph # (Auto) (1.2-3.4) K/uL Barren # (Auto) (0.11-0.59) K/uL Eos # (Auto) (0-0.5) K/uL Baso # (Auto) (0-0.2) K/uL Platelet Estimate (Normal) Tear Drop Cells Sodium (136-145) mmol/L Potassium (3.5-5.1) mmol/L Chloride (98-107) mmol/L Carbon Dioxide (21-32) mmol/L Anion Gap (3-11) BUN (7-18) mg/dl Creatinine (0.6-1.2) mg/dl Est Cr Clr Drug Dosing ml/min Est GFR ( Amer) Est GFR (Non-Af Amer) BUN/Creatinine Ratio (10-20) Glucose (70-99) mg/dl Lactate (0.4-2.0) mmol/L Calcium (8.5-10.1) mg/dl Magnesium (1.8-2.4) mg/dl Total Bilirubin (0.2-1) mg/dl AST (15-37) U/L ALT (12-78) U/L Alkaline Phosphatase (45-117) U/L Troponin I (0-0.045) ng/ml Total Protein (6.4-8.2) gm/dl Albumin (3.4-5.0) gm/dl Globulin (2.5-4.0) gm/dl Albumin/Globulin Ratio (0.9-2) TSH (0.300-4.500) uIu/ml Urine Color Yellow Urine Appearance Cloudy A (Clear) Urine pH 5.0 (4.5-7.5) Ur Specific [place] 1.018 (1.000-1.030) Urine Protein Negative (Negative) Urine Glucose (UA) Negative (Negative) Urine Ketones Negative (Negative) Urine Blood Negative (Negative) Urine Nitrite Positive A (Negative) Urine Bilirubin Negative (Negative) Urine Urobilinogen Negative (Negative) Ur Leukocyte Esterase Negative (Negative) Urine WBC (Auto) 1-5 (0-5) /hpf Urine RBC (Auto) 0-4 (0-4) /hpf U Hyaline Cast (Auto) 10-30 H (0-5) /lpf U Epithel Cells (Auto) >30 H (0-5) /lpf Urine Bacteria (Auto) 4+ H (Negative) Imaging Data Radiologist's Impression: Radiology results as stated below per my review and the radiologist's interpretation: XR chest 1V portable CLINICAL HISTORY: 73 years-old Female presenting with weakness and vomiting, ill since chemotherapy. TECHNIQUE: Portable upright AP view of the chest was obtained. COMPARISON: 07/17/2018. FINDINGS: Atherosclerosis of the aortic arch. Cardiac silhouette mildly enlarged. No focal opacity. No large effusion or pneumothorax. Osteopenia suspected. IMPRESSION: 1. Cardiomegaly. No other convincing evidence of acute cardiopulmonary disease. Electronically signed by: Huey Joshi M.D. 03/21/2019 7:28 PM ECG Data Attestation: I personally reviewed and interpreted this ECG as follows: Indication: weakness Rate (beats per minute): 71 Rhythm: normal sinus Findings: + other (artifact present); no PVC and no ST elevation Blood Pressure Blood Pressure Findings: Low blood pressure Blood Pressure Disposition: further management by hospitalist MARIA INES Narrative The patient is pancytopenic. Her white count, hemoglobin and platelet count are all low, likely from her recent chemotherapy. There was evidence for some acute kidney injury with a creatinine of 2.31. Potassium somewhat low at 2.8. No liver enzyme elevation. The patient appeared to be in a euthyroid state. EKG showed a normal sinus rhythm, no acute ischemia. Cardiac enzyme testing x1 is not consistent with acute cardiac injury. Chest film did not show any evidence for pneumonia or CHF. Urinalysis shows what appears to be contamination, urine culture is pending. Lactic acid level was not elevated making sepsis less likely. The patient presents with nausea, vomiting and diarrhea. She had a near syncopal event. She denies chest pain. She is not currently febrile. Laboratory work suggests significant dehydration. The patient received IV saline, she was given IV Zofran, IV Tylenol, IV Phenergan. She does feel improved. The patient requires a hospital stay. She requires hydration and symptom control. She will need to be in isolation given her neutropenia. She is not stable for discharge home. I did speak to the patient, I spoke with case management. The on-call hospitalist was consulted. Impression & Plan Acute renal failure (ARF), Acute dehydration, Vomiting, Pancytopenia Discharge Plan Visit Data *Final* Discharge Date/Time: 03/22/19 00:00 Chief Complaint: Syncope Stated Complaint: SYNCOPE,WEAK, SICK ED Provider: Jaxon Evans Discharge Problem: Acute renal failure (ARF), Acute dehydration, Vomiting, Pancytopenia Patient Disposition: Admitted As Inpatient Discharge Instructions Interventions: ED Discharge Assessment Last Done: 03/22/19 00:00 Discharge Problem: Acute renal failure (ARF) Qualifiers: Acute renal failure type: unspecified Qualified Code(s): N17.9 - Acute kidney failure, unspecified Vomiting Qualifiers: Vomiting type: unspecified Vomiting Intractability: non-intractable Nausea presence: with nausea Qualified Code(s): R11.2 - Nausea with vomiting, unspecified The scribe's documentation has been prepared under my direction and personally reviewed by me in its entirety. I confirm that the note above accurately reflects all work, treatment, procedures, and medical decision making performed by me.
--- NOTE | 2019-03-22 12:17 | Hospitalist Progress Note ---
Date of Service March 22, 2019 Assessment & Plan (1) Pancytopenia: likely from chemotherapy related bone marrow suppression, never had a bone marrow biopsy to rule out hematologic disorder per chart review Will give 2 units PRBCs for hgb 6.7 today Hematology consulted (2) Neutropenic fever: Chest x-ray: Cardiomegaly otherwise no acute findings Blood cultures x2 pending UA pending C. difficile negative Will change antibiotics to cefepime and flagyl 03/22 (3) Vomiting: resolved (4) Acute renal failure (ARF): CHRISTIAN in the setting of CKD 3 likely in the setting of dehydration related to diarrhea Creat 2.3 on admission (baseline creatinine 1.3) GFR 20 Received 1 L normal saline in the ED IV fluids, LR 100 cc/h (5) Chronic renal failure, stage 3 (moderate): (6) Hypertension: Continue home carvedilol Hold home Lasix in the setting of CHRISTIAN (7) Depression: Continue home sertraline (8) Diabetes: Type II Hold home medication Started on SSI (9) COPD (chronic obstructive pulmonary disease): Continue home PRN albuterol, Combivent Respimat, theophylline (10) Lung cancer: Lung adenocarcinoma since 2017 On maintenance chemotherapy Premetrexed every 3 weeks since February 2018 Continue home [place] for pain (11) DVT prophylaxis: DVT prophylaxis: Chemical contraindicated in the setting of pancytopenia, SCDs, encourage ambulation Code: Okay with cardiac resuscitation, no intubation/mechanical ventilation Subjective Ms. Rogel feels generally unwell. She continues to have diarrhea but no further nausea, able to eat her food. Denies any areas of skin breakdown or mouth pain. Review of Systems Review of Systems: All systems reviewed & are unremarkable except as noted in HPI & below Physical Exam Physical Exam: General: no distress Eyes: normal inspection, PERLL Respiratory: chest non tender, clear to auscultation, normal breath sounds, no respiratory distress, no accessory muscle use Cardiac: regular rate and rhythm, no rub or gallop, no murmur, no edema, no jvd GI/: active bowel sounds, no abd pain or tenderness, soft, non distended Extremities: normal range of motion, normal strength, non tender Neuro/Psych: alert and oriented x 3, normal mood and affect Skin: normal color, dry Results & Data Vital Signs (Past 12 Hours) Vital Signs Temp Pulse Pulse Pulse Resp BP BP 09/05/19 10:40 37.0 C 84 16 101/61 03/22/19 10:10 36.9 C 84 16 109/63 03/22/19 09:55 36.9 C 78 18 100/58 L 03/22/19 09:36 36.9 C 79 16 111/63 03/22/19 09:31 79 111/63 03/22/19 07:58 36.9 C 71 16 113/69 03/22/19 00:20 36.8 C 60 16 106/60 Pulse Ox 03/22/19 10:40 97 03/22/19 10:10 97 03/22/19 09:55 97 03/22/19 09:36 97 03/22/19 09:31 03/22/19 07:58 98 03/22/19 00:20 96 PG Care Time/CCT Total # of Minutes Spent Total Time Spent with Patient: Total time spent is greater than 50% in coordination of care (as documented) at patient's floor/unit and/or counseling patient: (1) Vomiting Nausea presence: with nausea Vomiting Intractability: non-intractable Vomiting type: unspecified Qualified Code(s): R11.2 - Nausea with vomiting, unspecified (2) Acute renal failure (ARF) Acute renal failure type: unspecified Qualified Code(s): N17.9 - Acute kidney failure, unspecified
[2019-03-22] MEDS: metroNIDAZOLE 500 MG/100 ML BAG IV SCH ×2 (13:11→20:21)
[2019-03-22] MEDS: CEFEPIME 2,000 MG in SYRINGE 7.5 ML IV SCH (15:41)
--- NOTE | 2019-03-22 17:04 | Oncology Consultation ---
Date of Consultation March 22, 2019 Assessment & Plan (1) Neutropenic fever: Ms. Rogel was febrile at home, though she hasn't been so here. Her ANC is low and dropping, which is consistent with both where she is at in her cycle and with her being heavily pretreated with chemotherapy. Her counts may continue to trend down before they increase. However, unless we identify an actual infectious source, GCSF generally is not needed. We should follow up cultures, particularly her urine culture given the bacteriuria and nitrites. If an infectious source is identified, we should treat her with an appropriate course of antibiotics and might consider adding GCSF. If no source is identified and she remains afebrile, we can discharge her once her counts start to rise. Present on Admission?: Yes (2) Lung cancer: She has received numerous cycles of chemotherapy and her toxicity burden is starting to increase. I will review her case with Dr. Simon, she may need some dose reductions or even a treatment holiday. Present on Admission?: Yes History of Present Illness Reason for Consultation: Neutropenic fever Non-small cell lung cancer Attending Physician: Derek Israel MD History of Present Illness Ms. Rogel is a 73 year old woman with a history of non-small cell lung cancer. She is currently receiving chemotherapy with maintenance pemetrexed. Her most recent dose was 03/12/19. Since then, she has had significant diarrhea. It was occurring multiple times per day and making her fatigued and weak. She also was nauseous and vomiting. She came to the ER with these symptoms and a fever of 100.5 at home. She was pancytopenic in the ER, with a WBC count of 0.9, Hgb 7.6, and platelets 60k. She had a UA that revealed 4+ bacteria and positive nitrites. Cultures are pending. She was started on antibiotics and feels much better. She denied any dysuria, hematuria, cough, purulent sputum, rashes, or pain. Allergies Allergy/AdvReac Type Severity Reaction Status Date / Time adhesive Allergy Unknown PULLS SKIN Verified 03/21/19 19:30 OFF Penicillins Allergy Unknown TONGUE Verified 03/22/19 11:03 SWELLING azithromycin AdvReac Nausea Verified 03/21/19 19:30 Home Medications Home Medications Medication Instructions Recorded Confirmed Type albuterol sulfate 2.5 mg INHALATION Q4H PRN 07/17/18 03/21/19 History carvedilol 6.25 mg PO BID 07/17/18 03/21/19 History folic acid 1 mg PO QAM 07/17/18 03/21/19 History furosemide 20 mg PO QAM 07/17/18 03/21/19 History hydrocodone-acetaminophen 1 tab PO BID PRN 07/17/18 03/21/19 History ipratropium-albuterol [Combivent 1 puff INHALATION Q4H PRN 07/17/18 03/21/19 History Respimat] ondansetron 8 mg PO Q8H PRN 07/17/18 03/21/19 History ranitidine HCl 1 tab PO BID 07/17/18 03/21/19 History sertraline 100 mg PO QAM 07/17/18 03/21/19 History sitagliptin [Januvia] 50 mg PO QAM 07/17/18 03/21/19 History theophylline 300 mg PO BID 07/17/18 03/21/19 History Patient History Medical History Chronic renal failure, stage 3 (moderate) Depression COPD (chronic obstructive pulmonary disease) (Chronic) Diabetes (Chronic) Arthritis (Chronic) Lung cancer Neutropenic fever Orthostatic hypotension Right knee DJD Surgical History Hx of right knee surgery Family History Other Diabetes Heart disease Hypertension Lung disease Social History Preferred Language: Uzbek Communication Ability: Effective Hob Grinder Required: No Beliefs That Will Affect Care: None marital status: / Current Living Situation: Family Current Living Situation Comment: Granddaughter Other Information That Helps Us Care for You: No Feels Safe at Home: Yes Safety Concerns: Feels Safe At This Time Smoking Status: Current some day smoker Tobacco Type: cigarettes ; Cigarettes Per Day: 10 ; Do You Dip or Chew Tobacco: No ; Second Hand Exposure: No ; Tobacco Cessation Education Requested by Patient: No (Pt states she has not smoked since last hospitalization 03/13/19) Hx Alcohol Use: No Hx Substance Use: No Review of Systems Constitutional: + fever, + fatigue and + weakness Respiratory: no cough and no dyspnea Cardiovascular: no chest pain and no edema Gastrointestinal: as per Subjective / HPI Genitourinary: no dysuria and no hematuria Musculoskeletal: no back pain and no joint pain Integumentary: no rash Neurologic: + generalized weakness; no headache(s) Physical Exam Constitutional: + ill appearing (chronically) and comfortable; no acute distress ENMT: external ear and nose normal, oropharynx normal Respiratory: normal respiratory effort, lungs clear to auscultation Cardiovascular: RRR, no murmur, no edema Gastrointestinal (Abdomen): Inspection/Auscultation: abdomen not distended and + abnormal bowel sounds Percussion/Palpation: abdomen soft; abdomen nontender Skin: no rashes, warm and dry Psychiatric: A+Ox3, euthymic affect Results & Data Vital Signs (Past 12 Hours) Vital Signs Temp Pulse Pulse Pulse Resp BP BP 03/22/19 16:47 36.7 C 86 18 137/73 03/22/19 15:40 36.7 C 95 H 18 113/60 03/22/19 15:31 36.7 C 79 19 122/67 03/22/19 14:41 37.2 C 78 16 115/67 03/22/19 14:09 36.4 C L 78 16 111/67 03/22/19 13:55 36.8 C 83 18 119/68 03/22/19 13:34 36 C L 75 16 109/76 03/22/19 13:05 36.4 C L 75 14 128/74 03/22/19 12:40 36.6 C 76 16 129/72 03/22/19 11:40 37.0 C 79 16 122/70 03/22/19 10:40 37.0 C 84 16 101/61 03/22/19 10:10 36.9 C 84 16 109/63 03/22/19 09:55 36.9 C 78 18 100/58 L 03/22/19 09:36 36.9 C 79 16 111/63 03/22/19 09:31 79 111/63 03/22/19 07:58 36.9 C 71 16 113/69 Pulse Ox 03/22/19 16:47 98 03/22/19 15:40 94 03/22/19 15:31 97 03/22/19 14:41 97 03/22/19 14:09 97 03/22/19 13:55 98 03/22/19 13:34 97 03/22/19 13:05 97 03/22/19 12:40 96 03/22/19 11:40 98 03/22/19 10:40 97 03/22/19 10:10 97 03/22/19 09:55 97 03/22/19 09:36 97 03/22/19 09:31 03/22/19 07:58 98 Laboratory Results Laboratory Tests 03/21/19 03/21/19 03/21/19 18:57 18:57 21:08 WBC 0.90 L* Hgb 7.6 L Plt Count 60 L Carbon Dioxide 22 Creatinine 2.31 H Urine Nitrite Positive A Urine Bacteria (Auto) 4+ H 03/22/19 03/22/19 06:49 06:49 WBC 0.84 L* Hgb 6.7 L* Plt Count 45 L Carbon Dioxide Creatinine 2.12 H Urine Nitrite Urine Bacteria (Auto) Diagnostic Findings CXR, 03/21/19: IMPRESSION: 1. Cardiomegaly. No other convincing evidence of acute cardiopulmonary disease.
[2019-03-22] MEDS ORDERED: ALUMINUM/MAGNESIUM SUSP 30 ML UDC PO PRN (17:08)
[2019-03-22] MEDS ORDERED: PANTOprazole 40 MG TAB PO ONE (17:15)
[2019-03-23] MEDS: CEFEPIME 2,000 MG in SYRINGE 7.5 ML IV SCH ×2 (00:41→08:54)
[2019-03-23] MEDS: metroNIDAZOLE 500 MG/100 ML BAG IV SCH ×3 (03:55→20:36)
[2019-03-23] MEDS: CARVEDILOL 6.25 MG TAB PO SCH ×2 (08:47→20:57)
[2019-03-23] MEDS: THEOPHYLLINE 300MG EXTENDED REL TAB PO SCH ×2 (08:47→20:57)
[2019-03-23] MEDS: SERTRALINE HCL 100 MG TABLET PO SCH (08:47)
[2019-03-23] MEDS: FOLIC ACID 1 MG TAB PO SCH (08:47)
[2019-03-23] MEDS: PANTOprazole 40 MG TAB PO SCH (08:47)
[2019-03-23] MEDS: INSULIN ASPART 100 UNITS/ML 3 ML PEN SC SCH ×4 (08:56→21:02)
[2019-03-23] MEDS: LACTATED RINGER'S 1,000 ML IV SCH ×2 (09:01→20:31)
[2019-03-23 09:36] LABS: Hematocrit (blood only) 24.4 % (37-47); Hemoglobin 8.2 g/dL (12.0-16.0); Mean Corpuscular Hemoglobin 30.6 pg (25-34); Mean Corpuscular Hgb Conc 33.6 g/dL (32-36); RDW Coefficient of Variation 17.8 % (11.5-14.5); RDW Standard Deviation 57.5 fL (36.4-46.3); Red Blood Count 2.68 M/uL (4.2-5.4); White Blood Count 0.66 K/uL (4.8-10.8)
[2019-03-23 09:43] LABS: BUN Creatinine Ratio 19.8 (10-20); Calcium 8.1 mg/dl (8.5-10.1); Creatinine Clr Calc Pharmacy 30.4 ml/min; Est GFR (African American) 31.4; Est GFR (Non-African American) 27.1; Potassium 3.6 mmol/L (3.5-5.1)
[2019-03-23 09:47] LABS: Platelet Count 24 K/uL (130-400)
[2019-03-23 09:52] LABS: Dohle Bodies 1+; Eosinophils # (auto) 0.07 K/uL (0-0.5); Eosinophils % (auto) 10.6 %; Giant Platelets 1+; Immature Granulocytes # (auto) 0.01 K/uL (0.00-0.02); Immature Granulocytes % (auto) 1.5 %; Lymphocytes # (auto) 0.43 K/uL (1.2-3.4); Lymphocytes % (auto) 65.2 %; Monocytes # (auto) 0.02 K/uL (0.11-0.59); Neutrophils # (auto) 0.13 K/uL (1.4-6.5); Neutrophils % (auto) 19.7 %; Platelet Estimate Decreased (Normal); Toxic Granulation 1+
--- NOTE | 2019-03-23 11:11 | Hospitalist Progress Note ---
Date of Service March 23, 2019 Assessment & Plan (1) Pancytopenia: neutropenia and thrombocytopenia continue to worsen likely from chemotherapy related bone marrow suppression, never had a bone marrow biopsy to rule out hematologic disorder per chart review 2 units PRBCs for hgb 6.7 on 03/22 Hematology consulted (2) UTI (urinary tract infection): E. Coli in urine Continue abx (3) Neutropenic fever: No further fevers since admission Chest x-ray: Cardiomegaly otherwise no acute findings Blood cultures x2 - one vial growing gram pos cocci which possibly represents contaminant UTI as above C. difficile negative Continue cefepime and flagyl started 03/22 (4) Vomiting: resolved (5) Acute renal failure (ARF): CHRISTIAN in the setting of CKD 3 likely in the setting of dehydration related to diarrhea Creat 2.3 on admission (baseline creatinine 1.3) IV fluids, LR 100 cc/h Improving with IVF (6) Chronic renal failure, stage 3 (moderate): avoid nephrotoxins where possible (7) Hypertension: Continue home carvedilol Hold home Lasix in the setting of CHRISTIAN (8) Depression: Continue home sertraline (9) Diabetes: Type II Hold home medication Started on SSI (10) COPD (chronic obstructive pulmonary disease): Continue home PRN albuterol, Combivent Respimat, theophylline (11) DVT prophylaxis: hold chemoprophylaxis in the setting of thrombocytopenia, SCDs Subjective Ms. Rogel's diarrhea is improving. She denies any cough or sob. She has been afebrile. No other complaints Review of Systems Review of Systems: All systems reviewed & are unremarkable except as noted in HPI & below Physical Exam Physical Exam: General: no distress Eyes: normal inspection, PERLL Respiratory: chest non tender, clear to auscultation, normal breath sounds, no respiratory distress, no accessory muscle use Cardiac: regular rate and rhythm, no rub or gallop, no murmur, no edema, no jvd GI/: active bowel sounds, no abd pain or tenderness, soft, non distended Extremities: normal range of motion, normal strength, non tender Neuro/Psych: alert and oriented x 3, normal mood and affect Skin: normal color, dry Results & Data Vital Signs (Past 12 Hours) Vital Signs Temp Pulse Pulse Resp BP Pulse Ox 03/23/19 07:59 36.9 C 71 17 116/71 95 09/05/19 23:10 37.2 C 80 18 124/69 97 PG Care Time/CCT Total # of Minutes Spent Total Time Spent with Patient: Total time spent is greater than 50% in coordination of care (as documented) at patient's floor/unit and/or counseling patient: (1) Vomiting Nausea presence: with nausea Vomiting Intractability: non-intractable Vomiting type: unspecified Qualified Code(s): R11.2 - Nausea with vomiting, unspecified (2) Acute renal failure (ARF) Acute renal failure type: unspecified Qualified Code(s): N17.9 - Acute kidney failure, unspecified
[2019-03-24] MEDS: metroNIDAZOLE 500 MG/100 ML BAG IV SCH ×2 (04:15→13:24)
[2019-03-24] MEDS: LACTATED RINGER'S 1,000 ML IV SCH ×2 (05:14→13:24)
[2019-03-24] MEDS: FILGRASTIM 480 MCG/1.6 ML VIAL SC SCH (07:46)
[2019-03-24] MEDS: SERTRALINE HCL 100 MG TABLET PO SCH (07:46)
[2019-03-24] MEDS: THEOPHYLLINE 300MG EXTENDED REL TAB PO SCH ×2 (07:47→20:29)
[2019-03-24] MEDS: CARVEDILOL 6.25 MG TAB PO SCH ×2 (07:47→20:29)
[2019-03-24] MEDS: FOLIC ACID 1 MG TAB PO SCH (07:47)
[2019-03-24] MEDS: PANTOprazole 40 MG TAB PO SCH (07:47)
[2019-03-24] MEDS: INSULIN ASPART 100 UNITS/ML 3 ML PEN SC SCH ×4 (09:09→20:24)
[2019-03-24 10:08] LABS: Calcium 8.1 mg/dl (8.5-10.1); Creatinine Clr Calc Pharmacy 35.7 ml/min; Est GFR (African American) 38.1; Est GFR (Non-African American) 32.9; Potassium 3.7 mmol/L (3.5-5.1)
[2019-03-24 10:40] LABS: Eosinophils # (auto) 0.06 K/uL (0-0.5); Eosinophils % (auto) 7.5 %; Hematocrit (blood only) 23.1 % (37-47); Hemoglobin 7.9 g/dL (12.0-16.0); Lymphocytes # (auto) 0.43 K/uL (1.2-3.4); Lymphocytes % (auto) 53.8 %; Mean Corpuscular Hemoglobin 31.1 pg (25-34); Mean Corpuscular Hgb Conc 34.2 g/dL (32-36); Mean Corpuscular Volume 90.9 fL (80-100); Monocytes # (auto) 0.03 K/uL (0.11-0.59); Monocytes % (auto) 3.8 %; Neutrophils # (auto) 0.28 K/uL (1.4-6.5); Neutrophils % (auto) 34.9 %; Ovalocytes 1+; Platelet Count 13 K/uL (130-400); Platelet Estimate SIGNIFIC DECREASED (Normal); RDW Coefficient of Variation 17.8 % (11.5-14.5); RDW Standard Deviation 57.4 fL (36.4-46.3); Red Blood Count 2.54 M/uL (4.2-5.4)
[2019-03-24] MEDS ORDERED: LOPERAMIDE HCL 2 MG CAP PO PRN (10:47)
[2019-03-24] MEDS ORDERED: SODIUM CHLORIDE 0.9% 250 ML IV PRN (11:16)
[2019-03-24 12:26] LABS: Albumin Level 2.5 gm/dl (3.4-5.0); Bilirubin Direct 0.1 mg/dl (0-0.2); Bilirubin,Total 0.4 mg/dl (0.2-1); Total Protein 5.9 gm/dl (6.4-8.2)
--- NOTE | 2019-03-24 12:32 | Hematology/Oncology Prog Note ---
Date of Service March 24, 2019 Assessment & Plan (1) Neutropenic fever: Ms. Rogel's counts are starting to improve. Now that we have identified a pathogen as the source of her infection, we can probably narrow her antibiotic coverage to treat the E. coli. The broad spectrum antibiotics may be exacerbating her diarrhea some. I would continue the GCSF for now. (2) Lung cancer: She has received numerous cycles of chemotherapy and her toxicity burden is starting to increase. I reviewed her case with Dr. Simon, he will discuss with her the need for some dose reductions or even a treatment holiday. (3) Pancytopenia: Related to chemotherapy, particularly given her extensive pre-treatment. Continue GCSF as above. I would transfuse her some platelets today, with a goal of >15K. Her hemoglobin responded to PRBC transfusion, I would probably hold off on more red blood cells unless her Hgb drops below 7.5. Present on Admission?: Yes Subjective Ms. Rogel is feeling better today. Her energy is still low, but it is improving. She still has a small amount of watery stool every time she urinates. She has been afebrile and denies any urinary symptoms. Review of Systems Constitutional: + fatigue and + weakness (generalized); no fever Respiratory: no cough and no dyspnea Cardiovascular: no chest pain and no palpitations Gastrointestinal: + diarrhea/loose stools; no abdominal pain and no nausea Genitourinary: no dysuria and no hematuria Musculoskeletal: no back pain Neurologic: no dizziness and no headache(s) Hematologic / Lymphatic: no easy bleeding Physical Exam Constitutional: + ill appearing (chronically) and comfortable; no acute distress ENMT: external ear and nose normal, oropharynx normal Respiratory: normal respiratory effort, lungs clear to auscultation Cardiovascular: RRR, no murmur, no edema Gastrointestinal (Abdomen): Inspection/Auscultation: normal bowel sounds; abdomen not distended Percussion/Palpation: abdomen soft; abdomen nontender Skin: no rashes, warm and dry Psychiatric: A+Ox3, euthymic affect Results & Data Vital Signs (Past 12 Hours) Vital Signs Temp Pulse Pulse Resp BP BP Pulse Ox 03/24/19 12:07 36.8 C 74 16 119/69 97 03/24/19 07:09 37.2 C 73 18 130/72 96 Laboratory Results Abnormal lab results 03/22/19 03/23/19 03/23/19 Range/Units 01:31 17:18 20:58 WBC (4.8-10.8) K/uL RBC (4.2-5.4) M/uL Hgb (12.0-16.0) g/dL Hct (37-47) % RDW Std Deviation (36.4-46.3) fL RDW Coeff of Maye (11.5-14.5) % Plt Count (130-400) K/uL Neut # (Auto) (1.4-6.5) K/uL Lymph # (Auto) (1.2-3.4) K/uL [place] # (Auto) (0.11-0.59) K/uL Chloride (98-107) mmol/L BUN (7-18) mg/dl Creatinine (0.6-1.2) mg/dl Glucose (70-99) mg/dl POC Glucose 126 H 126 H (70-99) Calcium (8.5-10.1) mg/dl AST (15-37) U/L Total Protein (6.4-8.2) gm/dl Albumin (3.4-5.0) gm/dl Crossmatch See Detail 03/24/19 03/24/19 03/24/19 Range/Units 08:01 09:23 09:23 WBC 0.80 L* (4.8-10.8) K/uL RBC 2.54 L (4.2-5.4) M/uL Hgb 7.9 L (12.0-16.0) g/dL Hct 23.1 L (37-47) % RDW Std Deviation 57.4 H (36.4-46.3) fL RDW Coeff of Maye 17.8 H (11.5-14.5) % Plt Count 13 L* (130-400) K/uL Neut # (Auto) 0.28 L* (1.4-6.5) K/uL Lymph # (Auto) 0.43 L (1.2-3.4) K/uL [place] # (Auto) 0.03 L (0.11-0.59) K/uL Chloride 118 H (98-107) mmol/L BUN 31 H (7-18) mg/dl Creatinine 1.54 H (0.6-1.2) mg/dl Glucose 129 H (70-99) mg/dl POC Glucose 126 H (70-99) Calcium 8.1 L (8.5-10.1) mg/dl AST (15-37) U/L Total Protein (6.4-8.2) gm/dl Albumin (3.4-5.0) gm/dl Crossmatch 03/24/19 Range/Units 09:23 WBC (4.8-10.8) K/uL RBC (4.2-5.4) M/uL Hgb (12.0-16.0) g/dL Hct (37-47) % RDW Std Deviation (36.4-46.3) fL RDW Coeff of Maye (11.5-14.5) % Plt Count (130-400) K/uL Neut # (Auto) (1.4-6.5) K/uL Lymph # (Auto) (1.2-3.4) K/uL [place] # (Auto) (0.11-0.59) K/uL Chloride (98-107) mmol/L BUN (7-18) mg/dl Creatinine (0.6-1.2) mg/dl Glucose (70-99) mg/dl POC Glucose (70-99) Calcium (8.5-10.1) mg/dl AST 14 L (15-37) U/L Total Protein 5.9 L (6.4-8.2) gm/dl Albumin 2.5 L (3.4-5.0) gm/dl Crossmatch
[2019-03-24] MEDS ORDERED: cefTRIAXone SODIUM 1,000 MG in DEXTROSE 5% 50 ML IV SCH (15:45)
--- NOTE | 2019-03-24 15:54 | Hospitalist Progress Note ---
Date of Service March 24, 2019 Assessment & Plan (1) Pancytopenia: neutropenia with small improvement, thrombocytopenia continues to worsen - platelets transfused 03/24 for platelet count of 13,000 likely from chemotherapy related bone marrow suppression, never had a bone marrow biopsy to rule out hematologic disorder per chart review 2 units PRBCs for hgb 6.7 on 03/22 Hematology consulted (2) UTI (urinary tract infection): E. Coli in urine Will de-escalate abx to ceftriaxone (3) Neutropenic fever: No further fevers since admission Chest x-ray: Cardiomegaly otherwise no acute findings Blood cultures x2 - one vial growing coag neg staph likely contaminant UTI as above C. difficile negative, stool cultures pending abx as above (4) Vomiting: resolved (5) Acute renal failure (ARF): CHRISTIAN in the setting of CKD 3 likely in the setting of dehydration related to diarrhea Creat 2.3 on admission (baseline creatinine 1.3) IV fluids, LR 100 cc/h Improving with IVF (6) Chronic renal failure, stage 3 (moderate): avoid nephrotoxins where possible (7) Hypertension: Continue home carvedilol Hold home Lasix in the setting of CHRISTIAN (8) Depression: Continue home sertraline (9) Diabetes: Type II Hold home medication Started on SSI (10) COPD (chronic obstructive pulmonary disease): Continue home PRN albuterol, Combivent Respimat, theophylline (11) DVT prophylaxis: hold chemoprophylaxis in the setting of thrombocytopenia, SCDs Subjective Ms. Rogel's diarrhea persists, no blood. Otherwise she has no complaints Review of Systems Review of Systems: All systems reviewed & are unremarkable except as noted in HPI & below Physical Exam Physical Exam: General: no distress Eyes: normal inspection, PERLL Respiratory: chest non tender, clear to auscultation, normal breath sounds, no respiratory distress, no accessory muscle use Cardiac: regular rate and rhythm, no rub or gallop, no murmur, no edema, no jvd GI/: active bowel sounds,right upper quadrant tenderness to palpation, soft, non distended Extremities: normal range of motion, normal strength, non tender Neuro/Psych: alert and oriented x 3, normal mood and affect Skin: normal color, dry Results & Data Vital Signs (Past 12 Hours) Vital Signs Temp Pulse Pulse Resp BP BP Pulse Ox 03/24/19 13:27 36.8 C 66 14 144/78 H 97 03/24/19 13:11 36.6 C 74 20 129/69 97 03/24/19 12:45 36.5 C 75 20 128/70 97 03/24/19 12:25 37 C 71 22 114/62 97 03/24/19 12:07 36.8 C 74 16 119/69 97 03/24/19 07:09 37.2 C 73 18 130/72 96 PG Care Time/CCT Total # of Minutes Spent Total Time Spent with Patient: Total time spent is greater than 50% in coordina tion of care (as documented) at patient's floor/unit and/or counseling patient: (1) Vomiting Nausea presence: with nausea Vomiting Intractability: non-intractable Vomiting type: unspecified Qualified Code(s): R11.2 - Nausea with vomiting, unspecified (2) Acute renal failure (ARF) Acute renal failure type: unspecified Qualified Code(s): N17.9 - Acute kidney failure, unspecified
[2019-03-24] MEDS ORDERED: CEFEPIME 2,000 MG in SYRINGE 7.5 ML IV SCH ×2 (16:00)
[2019-03-24] MEDS: cefTRIAXone SODIUM 2,000 MG in DEXTROSE 5% 50 ML IV SCH (16:29)
[2019-03-24] MEDS: IPRATROPIUM BROMIDE/ALBUTEROL respimat INH INH PRN (22:21)
[2019-03-25] MEDS: LACTATED RINGER'S 1,000 ML IV SCH ×2 (00:30→09:22)
[2019-03-25 07:54] LABS: Hematocrit (blood only) 21.9 % (37-47); Hemoglobin 7.4 g/dL (12.0-16.0); Mean Corpuscular Hemoglobin 30.8 pg (25-34); Mean Corpuscular Hgb Conc 33.8 g/dL (32-36); Mean Corpuscular Volume 91.3 fL (80-100); Mean Platelet Volume 9.8 fL (7.4-10.4); Platelet Count 26 K/uL (130-400); RDW Coefficient of Variation 17.8 % (11.5-14.5); RDW Standard Deviation 57.9 fL (36.4-46.3); White Blood Count 1.86 K/uL (4.8-10.8)
[2019-03-25 08:08] LABS: BUN Creatinine Ratio 16.8 (10-20); Calcium 7.9 mg/dl (8.5-10.1); Creatinine Clr Calc Pharmacy 42.3 ml/min; Est GFR (African American) 46.8; Est GFR (Non-African American) 40.4; Potassium 3.5 mmol/L (3.5-5.1)
[2019-03-25 08:26] LABS: ANC (manual) 1.14 K/uL (1.4-6.5); Eosinophils # (manual) 0.09 K/uL (0-0.5); Eosinophils % (manual) 5.1 %; Lymphocytes % (manual) 32.1 %; Monocytes # (manual) 0.02 K/uL (0.11-0.59); Monocytes % (manual) 1.3 %; Neutrophils # (manual) 1.14 K/uL (1.4-6.5); Neutrophils % (manual) 61.5 %; Ovalocytes 1+
[2019-03-25] MEDS: FOLIC ACID 1 MG TAB PO SCH (08:46)
[2019-03-25] MEDS: THEOPHYLLINE 300MG EXTENDED REL TAB PO SCH ×2 (08:46→21:07)
[2019-03-25] MEDS: SERTRALINE HCL 100 MG TABLET PO SCH (08:46)
[2019-03-25] MEDS: CARVEDILOL 6.25 MG TAB PO SCH ×2 (08:46→21:07)
[2019-03-25] MEDS: PANTOprazole 40 MG TAB PO SCH (08:46)
[2019-03-25] MEDS: INSULIN ASPART 100 UNITS/ML 3 ML PEN SC SCH ×4 (08:52→22:17)
[2019-03-25] MEDS ORDERED: SODIUM CHLORIDE 0.9% 250 ML IV PRN (08:57)
[2019-03-25] MEDS: FILGRASTIM 480 MCG/1.6 ML VIAL SC SCH (09:22)
[2019-03-25] MEDS: IPRATROPIUM BROMIDE/ALBUTEROL respimat INH INH PRN ×2 (09:22→21:08)
--- NOTE | 2019-03-25 10:26 | Hospitalist Progress Note ---
Date of Service March 25, 2019 Assessment & Plan (1) Pancytopenia: neutropenia is improving with neupogen thrombocytopenia improved after platelets transfused 03/24 for platelet count of 13,000 likely from chemotherapy related bone marrow suppression, never had a bone marrow biopsy to rule out hematologic disorder per chart review 2 units PRBCs for hgb 6.7 on 03/22, 1 unit PRBCs 03/25 Hematology consulted (2) UTI (urinary tract infection): E. Coli in urine Abx de-escalated to ceftriaxone (3) Neutropenic fever: No further fevers since admission Chest x-ray: Cardiomegaly otherwise no acute findings Blood cultures x2 - one vial growing coag neg staph likely contaminant UTI as above C. difficile negative, stool cultures pending abx as above (4) Vomiting: resolved (5) Acute renal failure (ARF): CHRISTIAN in the setting of CKD 3 likely in the setting of dehydration related to diarrhea Creat 2.3 on admission (baseline creatinine 1.3) Resolved - will d/c IVF (6) Chronic renal failure, stage 3 (moderate): avoid nephrotoxins where possible (7) Hypertension: Continue home carvedilol Lasix held for CHRISTIAN - will continue to hold for now (8) Depression: Continue home sertraline (9) Diabetes: Type II Hold home medication Continue SSI (10) COPD (chronic obstructive pulmonary disease): Continue home PRN albuterol, Combivent Respimat, theophylline (11) DVT prophylaxis: hold chemoprophylaxis in the setting of thrombocytopenia, SCDs Subjective Ms. Rogel reports that her diarrhea has improved somewhat but persists. She denies any blood in stool, black tarry stools or blood in her urine. Review of Systems Review of Systems: All systems reviewed & are unremarkable except as noted in HPI & below Physical Exam Physical Exam: General: no distress Eyes: normal inspection, PERLL Respiratory: chest non tender, clear to auscultation, normal breath sounds, no respiratory distress, no accessory muscle use Cardiac: regular rate and rhythm, no rub or gallop, no murmur, no edema, no jvd GI/: active bowel sounds, no abd pain or tenderness, soft, non distended Extremities: normal range of motion, normal strength, non tender Neuro/Psych: alert and oriented x 3, normal mood and affect Skin: normal color, dry Results & Data Vital Signs (Past 12 Hours) Vital Signs Temp Pulse Pulse Resp BP Pulse Ox 03/25/19 07:29 37 C 70 18 153/77 H 97 03/25/19 00:07 37.1 C 75 15 149/74 H 97 PG Care Time/CCT Total # of Minutes Spent Total Time Spent with Patient: Total time spent is greater than 50% in coordination of care (as documented) at patient's floor/unit and/or counseling patient: (1) Vomiting Nausea presence: with nausea Vomiting Intractability: non-intractable Vomiting type: unspecified Qualified Code(s): R11.2 - Nausea with vomiting, unspecified (2) Acute renal failure (ARF) Acute renal failure type: unspecified Qualified Code(s): N17.9 - Acute kidney failure, unspecified
[2019-03-25] MEDS: cefTRIAXone SODIUM 2,000 MG in DEXTROSE 5% 50 ML IV SCH (15:22)
[2019-03-26 06:08] LABS: Hematocrit (blood only) 24.2 % (37-47); Hemoglobin 8.4 g/dL (12.0-16.0); Mean Corpuscular Hemoglobin 30.8 pg (25-34); Mean Corpuscular Hgb Conc 34.7 g/dL (32-36); Mean Corpuscular Volume 88.6 fL (80-100); Platelet Count 16 K/uL (130-400); RDW Coefficient of Variation 18.2 % (11.5-14.5); Red Blood Count 2.73 M/uL (4.2-5.4); White Blood Count 3.42 K/uL (4.8-10.8)
[2019-03-26 06:11] LABS: ALC (manual) 0.77 K/uL (1.2-3.4); ANC (manual) 2.56 K/uL (1.4-6.5); Eosinophils # (manual) 0.03 K/uL (0-0.5); Eosinophils % (manual) 0.9 %; Lymphocytes # (manual) 0.77 K/uL (1.2-3.4); Lymphocytes % (manual) 22.6 %; Monocytes # (manual) 0.06 K/uL (0.11-0.59); Monocytes % (manual) 1.7 %; Neutrophils # (manual) 2.56 K/uL (1.4-6.5); Neutrophils % (manual) 74.8 %; Ovalocytes 1+; Platelet Estimate SIGNIFIC DECREASED (Normal)
[2019-03-26] MEDS: FOLIC ACID 1 MG TAB PO SCH (09:00)
[2019-03-26] MEDS: SERTRALINE HCL 100 MG TABLET PO SCH (09:00)
[2019-03-26] MEDS: THEOPHYLLINE 300MG EXTENDED REL TAB PO SCH ×2 (09:00→20:54)
[2019-03-26] MEDS: CARVEDILOL 6.25 MG TAB PO SCH ×2 (09:00→20:56)
[2019-03-26] MEDS: PANTOprazole 40 MG TAB PO SCH (09:00)
[2019-03-26] MEDS: INSULIN ASPART 100 UNITS/ML 3 ML PEN SC SCH ×4 (09:02→20:55)
[2019-03-26] MEDS: FILGRASTIM 480 MCG/1.6 ML VIAL SC SCH (09:06)
[2019-03-26 09:49] LABS: Albumin Level 2.6 gm/dl (3.4-5.0); BUN Creatinine Ratio 13.2 (10-20); Calcium 8.1 mg/dl (8.5-10.1); Creatinine Clr Calc Pharmacy 39.3 ml/min; Est GFR (African American) 42.8; Est GFR (Non-African American) 36.9; Potassium 3.6 mmol/L (3.5-5.1)
[2019-03-26 09:52] LABS: Albumin Globulin Ratio 0.7 (0.9-2); Bilirubin,Total 0.5 mg/dl (0.2-1); Globulin 3.7 gm/dl (2.5-4.0); Total Protein 6.3 gm/dl (6.4-8.2)
[2019-03-26] MEDS: IPRATROPIUM BROMIDE/ALBUTEROL respimat INH INH PRN (13:16)
--- NOTE | 2019-03-26 16:12 | Hospitalist Progress Note ---
Date of Service March 26, 2019 Assessment & Plan (1) Neutropenic fever: - Likely related to UTI. Fevers now resolved. - BC on admission (1 of 2) pos for coag neg staph -- likely contaminant. Will require repeat BC if fevers are recurrent. - CXR negative for PNA. - UC positive for E. coli -- see below. - Stool studies negative to date. (2) UTI (urinary tract infection): - UC positive for E. coli. - Converted Ceftriaxone to Keflex PO (due to interaction with Theophylline) (3) Pancytopenia: - Received Neupogen from 03/24-03/26 -- now recovering. - Chemotherapy induced pancytopenia, reached clement and is now trending up. Will d/c Neupogen. - Transfuse for plt <15K and hgb <7.5 -- did not require transfusion support today. - Heme/onc consulted, appreciate input. (4) Elevated LFTs: - LFTs are now trending up -- unclear etiology, chemo induced vs. Theophylline (very unlikely) vs. other. - Will continue to trend qAM. - Consider RUQ US if no improvement. (5) Lung cancer: - Follows with Dr. Simon, consulted as inpt. - May require dose reduction vs. chemo holiday due to chemo toxicity. (6) Acute renal failure (ARF): - Creat was 2.3 at admission, improved with IV fluids. - Monitor renal function closely. (7) Chronic renal failure, stage 3 (moderate): - Renally dose all meds. (8) Hypertension: - Continue home Coreg. - Holding home Lasix due to CHRISTIAN at admission. (9) Depression: - Continue home Zoloft. (10) Diabetes: - A1C was 7.0 in October 2018. - SSI coverage ordered. (11) COPD (chronic obstructive pulmonary disease): - Continue home Combivent as prescribed. - Continue Theophylline -- level is pending. - No acute exacerbation noted. (12) DVT prophylaxis: - Holding pharmacologic ppx in setting of thrombocytopenia. Dispo: Discharge to home pending improvement in LFTs on 03/27/19. Supervising Physician Co-Signing Physician Notes PA Supervision Note: I did not personally see or examine the patient today, but I verified all sams points of RON Bernabe's assessment and plan with the following exceptions/additions: None Subjective Pt. reports being fatigued today but otherwise is doing well. Denies chest pain, SOB, N/V, constipation or diarrhea. Review of Systems Review of Systems: All systems reviewed & are unremarkable except as noted in HPI & below Constitutional: + fatigue and + weakness; no fever, no chills and no anorexia Respiratory: no cough, no dyspnea, no dyspnea on exertion and no wheezing Cardiovascular: no chest pain, no palpitations and no edema Gastrointestinal: no abdominal pain, no nausea, no vomiting and no constipation Genitourinary: no difficulty urinating Musculoskeletal: no back pain and no joint pain Integumentary: no non-healing lesions Physical Exam Physical Exam: General: Resting comfortably HEENT: NC/AT; PERRLA with EOMI; [place] conjunctiva, MMM. No erythema of posterior pharynx Neck: Supple and nontender Cardiac: RRR Lungs: CTA bilaterally; No rhonchi, wheezing, or rales Abdomen: Bowel normoactive X 4; Nontender to palpation Extremities: Warm. No edema present Neuro: No focal weakness Skin: No rash Results & Data Vital Signs (Past 12 Hours) Vital Signs Temp Pulse Pulse Resp BP Pulse Ox 03/26/19 15:12 36.6 C 70 18 143/84 H 96 03/26/19 07:48 37.1 C 68 16 150/58 H 96 03/26/19 05:55 36.9 C Laboratory Results 03/26/19 03/26/19 03/26/19 Range/Units 14:10 12:23 09:21 WBC (4.8-10.8) K/uL RBC (4.2-5.4) M/uL Hgb (12.0-16.0) g/dL Hct (37-47) % MCV (80-100) fL MCH (25-34) pg MCHC (32-36) g/dL RDW Std Deviation (36.4-46.3) fL RDW Coeff of Maye (11.5-14.5) % Plt Count (130-400) K/uL Neutrophils % (Manual) % Lymphocytes % (Manual) % Monocytes % (Manual) % Eosinophils % (Manual) % Neutrophils # (Manual) (1.4-6.5) K/uL Total Absolute Neuts (1.4-6.5) K/uL Lymphocytes # (Manual) (1.2-3.4) K/uL Total Abs Lymphocytes (1.2-3.4) K/uL Monocytes # (Manual) (0.11-0.59) K/uL Eosinophils # (Manual) (0-0.5) K/uL Hypersegmented Neuts Platelet Estimate (Normal) Ovalocytes Sodium 145 (136-145) mmol/L Potassium 3.6 (3.5-5.1) mmol/L Chloride 114 H (98-107) mmol/L Carbon Dioxide 23 (21-32) mmol/L Anion Gap 8.0 (3-11) BUN 18 (7-18) mg/dl Creatinine 1.40 H (0.6-1.2) mg/dl Est Cr Clr Drug Dosing 39.3 ml/min Est GFR ( Amer) 42.8 Est GFR (Non-Af Amer) 36.9 BUN/Creatinine Ratio 13.2 (10-20) Glucose 156 H (70-99) mg/dl POC Glucose 172 H (70-99) Calcium 8.1 L (8.5-10.1) mg/dl Total Bilirubin 0.5 (0.2-1) mg/dl AST 112 H (15-37) U/L ALT 80 H (12-78) U/L Alkaline Phosphatase 80 (45-117) U/L Total Protein 6.3 L (6.4-8.2) gm/dl Albumin 2.6 L (3.4-5.0) gm/dl Globulin 3.7 (2.5-4.0) gm/dl Albumin/Globulin Ratio 0.7 L (0.9-2) Theophylline 10 (10-20) mcg/ml 03/26/19 03/26/19 03/25/19 Range/Units 08:19 04:54 20:52 WBC 3.42 L (4.8-10.8) K/uL RBC 2.73 L (4.2-5.4) M/uL Hgb 8.4 L (12.0-16.0) g/dL Hct 24.2 L (37-47) % MCV 88.6 (80-100) fL MCH 30.8 (25-34) pg MCHC 34.7 (32-36) g/dL RDW Std Deviation 57.0 H (36.4-46.3) fL RDW Coeff of Maye 18.2 H (11.5-14.5) % Plt Count 16 L* (130-400) K/uL Neutrophils % (Manual) 74.8 % Lymphocytes % (Manual) 22.6 % Monocytes % (Manual) 1.7 % Eosinophils % (Manual) 0.9 % Neutrophils # (Manual) 2.56 (1.4-6.5) K/uL Total Absolute Neuts 2.56 (1.4-6.5) K/uL Lymphocytes # (Manual) 0.77 L (1.2-3.4) K/uL Total Abs Lymphocytes 0.77 L (1.2-3.4) K/uL Monocytes # (Manual) 0.06 L (0.11-0.59) K/uL Eosinophils # (Manual) 0.03 (0-0.5) K/uL Hypersegmented Neuts Occasional Platelet Estimate SIGNIFIC DECREASED (Normal) Ovalocytes 1+ Sodium (136-145) mmol/L Potassium (3.5-5.1) mmol/L Chloride (98-107) mmol/L Carbon Dioxide (21-32) mmol/L Anion Gap (3-11) BUN (7-18) mg/dl Creatinine (0.6-1.2) mg/dl Est Cr Clr Drug Dosing ml/min Est GFR ( Amer) Est GFR (Non-Af Amer) BUN/Creatinine Ratio (10-20) Glucose (70-99) mg/dl POC Glucose 147 H 117 H (70-99) Calcium (8.5-10.1) mg/dl Total Bilirubin (0.2-1) mg/dl AST (15-37) U/L ALT (12-78) U/L Alkaline Phosphatase (45-117) U/L Total Protein (6.4-8.2) gm/dl Albumin (3.4-5.0) gm/dl Globulin (2.5-4.0) gm/dl Albumin/Globulin Ratio (0.9-2) Theophylline (10-20) mcg/ml 03/25/19 03/25/19 Range/Units 17:22 06:59 WBC (4.8-10.8) K/uL RBC (4.2-5.4) M/uL Hgb (12.0-16.0) g/dL Hct (37-47) % MCV (80-100) fL MCH (25-34) pg MCHC (32-36) g/dL RDW Std Deviation (36.4-46.3) fL RDW Coeff of Maye (11.5-14.5) % Plt Count (130-400) K/uL Neutrophils % (Manual) % Lymphocytes % (Manual) % Monocytes % (Manual) % Eosinophils % (Manual) % Neutrophils # (Manual) (1.4-6.5) K/uL Total Absolute Neuts (1.4-6.5) K/uL Lymphocytes # (Manual) (1.2-3.4) K/uL Total Abs Lymphocytes (1.2-3.4) K/uL Monocytes # (Manual) (0.11-0.59) K/uL Eosinophils # (Manual) (0-0.5) K/uL Hypersegmented Neuts Occasional Platelet Estimate (Normal) Ovalocytes Sodium (136-145) mmol/L Potassium (3.5-5.1) mmol/L Chloride (98-107) mmol/L Carbon Dioxide (21-32) mmol/L Anion Gap (3-11) BUN (7-18) mg/dl Creatinine (0.6-1.2) mg/dl Est Cr Clr Drug Dosing ml/min Est GFR ( Amer) Est GFR (Non-Af Amer) BUN/Creatinine Ratio (10-20) Glucose (70-99) mg/dl POC Glucose 179 H (70-99) Calcium (8.5-10.1) mg/dl Total Bilirubin (0.2-1) mg/dl AST (15-37) U/L ALT (12-78) U/L Alkaline Phosphatase (45-117) U/L Total Protein (6.4-8.2) gm/dl Albumin (3.4-5.0) gm/dl Globulin (2.5-4.0) gm/dl Albumin/Globulin Ratio (0.9-2) Theophylline (10-20) mcg/ml PG Care Time/CCT Total # of Minutes Spent Total Time Spent with Patient: Total time spent is greater than 50% in coordination of care (as documented) at patient's floor/unit and/or counseling patient: (1) Acute renal failure (ARF) Acute renal failure type: unspecified Qualified Code(s): N17.9 - Acute kidney failure, unspecified
[2019-03-26] MEDS: cephALEXin 500 MG CAP PO SCH (20:54)
[2019-03-26] MEDS ORDERED: CIPROFLOXACIN 500 MG TAB PO SCH (21:00)
[2019-03-27 07:41] LABS: Albumin Level 2.4 gm/dl (3.4-5.0); BUN Creatinine Ratio 14.6 (10-20); Calcium 8.4 mg/dl (8.5-10.1); Creatinine Clr Calc Pharmacy 45.5 ml/min; Potassium 3.5 mmol/L (3.5-5.1)
[2019-03-27 07:44] LABS: Albumin Globulin Ratio 0.7 (0.9-2); Bilirubin,Total 0.5 mg/dl (0.2-1); Globulin 3.5 gm/dl (2.5-4.0); Total Protein 5.9 gm/dl (6.4-8.2)
[2019-03-27 07:57] LABS: Hemoglobin 8.5 g/dL (12.0-16.0); Mean Corpuscular Hemoglobin 30.7 pg (25-34); Mean Corpuscular Volume 90.3 fL (80-100); Platelet Count 10 K/uL (130-400); RDW Coefficient of Variation 18.3 % (11.5-14.5); RDW Standard Deviation 59.1 fL (36.4-46.3); Red Blood Count 2.77 M/uL (4.2-5.4); White Blood Count 5.11 K/uL (4.8-10.8)
[2019-03-27 07:59] LABS: Basophils # (auto) 0.01 K/uL (0-0.2); Basophils % (auto) 0.2 %; Dohle Bodies 1+; Eosinophils # (auto) 0.21 K/uL (0-0.5); Eosinophils % (auto) 4.1 %; Lymphocytes # (auto) 1.03 K/uL (1.2-3.4); Lymphocytes % (auto) 20.2 %; Monocytes # (auto) 0.36 K/uL (0.11-0.59); Neutrophils % (auto) 66.5 %; Ovalocytes 1+; Platelet Estimate SIGNIFIC DECREASED (Normal)
[2019-03-27] MEDS ORDERED: SODIUM CHLORIDE 0.9% 250 ML IV PRN (08:24)
[2019-03-27] MEDS: SERTRALINE HCL 100 MG TABLET PO SCH (09:16)
[2019-03-27] MEDS: PANTOprazole 40 MG TAB PO SCH (09:16)
[2019-03-27] MEDS: cephALEXin 500 MG CAP PO SCH (09:16)
[2019-03-27] MEDS: CARVEDILOL 6.25 MG TAB PO SCH (09:16)
[2019-03-27] MEDS: THEOPHYLLINE 300MG EXTENDED REL TAB PO SCH (09:17)
[2019-03-27] MEDS: FOLIC ACID 1 MG TAB PO SCH (09:17)
[2019-03-27] MEDS: INSULIN ASPART 100 UNITS/ML 3 ML PEN SC SCH ×2 (09:20→13:29)
[2019-03-27] MEDS: IPRATROPIUM BROMIDE/ALBUTEROL respimat INH INH PRN (13:30)
--- NOTE | 2019-03-27 15:15 | Discharge Summary ---
Date of Service March 27, 2019 Admission HPI Per Admitting Provider 73-year-old female with history of non-small cell lung cancer on chemotherapy, CKD 3, COPD, hypertension, diabetes presents with fever, body aches, nausea, diarrhea since receiving chemo on 03/06/2019, x14 days. Reports receiving transfusion the day before chemo. As usual she developed body aches, mouth sores, vomiting, diarrhea but it did not improve as he usually does in 1 to 2 days. She continued to have dry heaves despite taking Zofran. Vomiting is green in color and nonbloody. Diarrhea is nonbloody, loose and yellow and she has about 2-4 episodes per day. Associated with fever of 100.52 days ago and 99 o yesterday, decreased appetite and inability to keep anything down, lightheadedness, suprapubic region abdominal pain. Denies any headache, chest pain, shortness of breath, dysuria, hematuria, increased urinary frequency. No recent travel or camping. Per patient has been receiving chemo every 3 weeks since last February 2018. She had 6 weeks off. In October but her cancer came back so she supposed to keep receiving chemo. Sees Dr. So. Did not get radiation or surgery. Surgical history: Cholecystectomy Social history: Has smoked since age 18 with a 5-year period of quitting, denies alcohol or recreational drug use Admission Exam Per Admitting Provider General: In NAD Neuro: A&O x 4 Pulm: CTAB equal breath sounds bilaterally CV: RRR, no m/r/g, cap refill 4 secs Abdomen:+BS, no TTP in all quadrants, non-distended LE: no LE edema, no calf TTP Of note: no chemo port Principal Diagnosis Neutropenic Fever, UTI Discharge Exam General: Resting comfortably HEENT: NC/AT; PERRLA with EOMI; [place] conjunctiva, MMM. No erythema of posterior pharynx Neck: Supple and nontender Cardiac: RRR Lungs: CTA bilaterally; No rhonchi, wheezing, or rales Abdomen: Bowel normoactive X 4; Nontender to palpation Extremities: Warm. No edema present Neuro: No focal weakness Skin: No rash Discharge Data Allergies Allergy/AdvReac Type Severity Reaction Status Date / Time adhesive Allergy Unknown PULLS SKIN Verified 04/02/19 13:55 OFF Penicillins Allergy Unknown TONGUE Verified 04/02/19 13:55 SWELLING azithromycin AdvReac Nausea Verified 04/02/19 13:55 Consultations 03/21/19 20:03 ED Decision to Admit Stat 03/22/19 01:12 Consult Oncology Routine Ordered Studies CXR 03/21/19 Hospital Course (1) Neutropenic fever: Likely related to UTI. Fevers now resolved. BC on admission (1 of 2) pos for coag neg staph -- likely contaminant. CXR negative for PNA. UC positive for E. coli -- see below. Stool studies negative to date. (2) UTI (urinary tract infection): UC positive for E. coli. Converted Ceftriaxone to Keflex PO (no Cipro due to interaction with Theophylline) (3) Pancytopenia: Received Neupogen from 03/24-03/26 -- counts are now recovered. Chemotherapy induced pancytopenia, reached clement and now recovering in setting of Neupogen x 3 doses. Transfuse for plt <15K and hgb <7.5 -- transfused 1 unit plt on day of discharge for plt count 10K. Heme/onc consulted, appreciate input. Will need outpt labs on of this week then f/u with Dr. Simon for chemo as scheduled. (4) Elevated LFTs: LFTs were trending up on 03/26 -- unclear etiology, chemo induced vs. Theophylline (very unlikely) vs. other. Improved on 03/27, no indication for inpt monitoring. (5) Lung cancer: Follows with Dr. Simon, consulted as inpt. May require dose reduction vs. chemo holiday due to chemo toxicity. (6) Acute renal failure (ARF): Creat was 2.3 at admission, improved with IV fluids. (7) Chronic renal failure, stage 3 (moderate): Renally dose all meds. (8) Hypertension: Continued home Coreg. Held home Lasix due to CHRISTIAN, will d/c at discharge. (9) Depression: Continued home Zoloft. (10) Diabetes: A1C was 7.0 in October 2018. SSI coverage as inpt. (11) COPD (chronic obstructive pulmonary disease): Continued home Combivent as prescribed. Continued Theophylline -- level was WNL. No acute exacerbation noted. (12) DVT prophylaxis: Held pharmacologic ppx in setting of thrombocytopenia. Stable for discharge on 03/27/19. Total Time Total Time Spent Total Time Spent (In Minutes): >30 minutes Total Time Includes: Examination of the Patient, Discharge Planning, Medication Reconciliation, Communication With Other Providers and Other Discharge Plan Discharge Items Patient Disposition: Home - Self-Care Reason For Visit: NEUTROPENIC FEVER Condition on Discharge: Good Activity: As commented below Exercise/Sports: None Non-emergency contact: Primary Care Provider and Oncologist Follow-up/Referrals: Jan Simon DO [Physician] - 04/02/19 1:20 pm (A follow up appt. was in place with Dr. Simon on Tuesday, 04/02 at 1:20pm. You are currently scheduled for chemotherapy after appt.) Arthur Cruz [Primary Care Provider] - [employer] Provider Instructions: 1. Lung Cancer s/p chemotherapy with neutropenic fevers * Please follow up with Dr. Simon as scheduled to discuss further chemotherapy. * You will need labs prior to this appointment to monitor blood counts -- script was provided and labs should be collected on or Tue of this week. Results will be faxed to Dr. Simon. * Please monitor for signs of bleeding in setting of low platelet count -- avoid exercise or activities that will increase risk of bleeding. * Please avoid large crowds or ill contacts due to immunocompromised state. 2. Urinary Tract Infection * Please take Keflex 500 mg BID for treatment of UTI. 3. Please schedule follow up with PCP in 1-2 weeks. Pending Studies at Discharge: Yes Studies:: Stool cultures are pending. Stand-Alone Forms: My [facility] Medications and DC Order Prescriptions: Continued carvedilol 6.25 mg tablet 6.25 mg PO BID RF: 0 albuterol sulfate 2.5 mg /3 mL (0.083 %) solution for nebulization 2.5 mg Inhalation Q4H PRN (Reason: Shortness Of Breath Or Wheezing) RF: 0 sertraline 100 mg tablet 100 mg PO QAM RF: 0 hydrocodone-acetaminophen 10-325 mg tablet 1 tab PO BID PRN (Reason: Pain) RF: 0 theophylline 300 mg tablet extended release 12 hr 300 mg PO BID RF: 0 ranitidine HCl 150 mg tablet 1 tab PO BID RF: 0 folic acid 1 mg tablet 1 mg PO QAM RF: 0 ondansetron 4 mg tablet,disintegrating 8 mg PO Q8H PRN (Reason: Nausea) RF: 0 sitagliptin 50 mg tablet 50 mg PO QAM RF: 0 Combivent Respimat 20-100 mcg/actuation Mist 1 puff INHALATION Q4H PRN (Reason: Shortness Of Breath Or Wheezing) RF: 0 Discontinued furosemide 20 mg tablet 20 mg PO QAM RF: 0 Discharge Orders: Discharge Order (Routine); Ordered 03/27/19 Ordered By: Natasha Topete/Other Patient Handouts: Pain Management, UTI Admission Data Admit Date/Time: 03/21/19 21:18 Attending Provider: Natasha Manriquez Admit Provider: Tramaine Connor Primary Care Provider: Arthur Cruz Other Providers: Leandro So ; Derek Israel Other Interventions: Discharge Summary Assessment (RN) Last Done: 03/27/19 16:48 DC Date/Time DO NOT enter until pt leaves facility: 03/27/19 17:30 Supervising Physician Co-Signing Physician Notes PA Supervision Note: I personally saw and examined the patient. I verified all sams points and agree with RON Bernabe with the following exceptions and/or additions: Pt has no complaints. Vitals reviewed RRR no mgr CTAB no wcr Abd sof Lucie ND SKin-petechiae on legs bialt Stable for dc to home on po keflex for UTI CLose f/u for repeat CBC and oncology f/u
== END 2019-03-27 17:30 | disposition home or self-care (01) | DRG 809 ==
LOC: ED 18:18 → 3W 21:18 → SUATTDRO 21:18 → 3W 03-22
DX: N18.3 Chronic kidney disease, stage 3 (moderate); F32.9 Major depressive disorder, single episode, unspecified; B96.20 Unspecified Escherichia coli [E. coli] as the cause of diseases classified elsewhere; E11.9 Type 2 diabetes mellitus without complications; N17.9 Acute kidney failure, unspecified; F17.210 Nicotine dependence, cigarettes, uncomplicated; I12.9 Hypertensive chronic kidney disease with stage 1 through stage 4 chronic kidney disease, or unspecified chronic kidney disease; J44.9 Chronic obstructive pulmonary disease, unspecified; N39.0 Urinary tract infection, site not specified; Z88.0 Allergy status to penicillin; Z88.1 Allergy status to other antibiotic agents; Z83.3 Family history of diabetes mellitus; E87.6 Hypokalemia; C34.90 Malignant neoplasm of unspecified part of unspecified bronchus or lung; D61.810 Antineoplastic chemotherapy induced pancytopenia; Z82.49 Family history of ischemic heart disease and other diseases of the circulatory system; E86.0 Dehydration

== ENCOUNTER 2020-06-15 16:02 | Inpatient (IN) ==
--- NOTE | 2020-06-15 16:26 | Emergency Department Note ---
History of Present Illness General Chief complaint: Illness Stated complaint: COVID + , ILLNESS Time Seen by Provider: 06/15/20 16:09 Source: patient Mode of arrival: EMS Limitations: no limitations History of Present Illness Provider complaint: Shortness of breath This is a 74-year-old female who presents to the ED with a chief complaint of shortness of breath. The patient tested positive here 8 days ago for COVID-19. She was discharged at that time as her vital signs and clinical evaluation was stable. The patient states that she has had increased shortness of breath since early this morning. She also reports 5 episodes of diarrhea since this morning in small quantities. She also reported having a slight chest pressure earlier today that would come and go. She currently does not have it. She states that her glands feel swollen in her neck. She feels weak. She states that she has difficulty walking small distances because she gets shaky. She does have a history of COPD and lung cancer. Home Medications Medication Instructions Recorded Confirmed Type Combivent Respimat 1 puff INHALATION Q4H PRN 07/17/18 06/15/20 History albuterol sulfate 2.5 mg INHALATION Q4H PRN 07/17/18 06/15/20 History carvedilol 6.25 mg PO BID 07/17/18 06/15/20 History folic acid 1 mg PO QAM 07/17/18 06/15/20 History hydrocodone-acetaminophen 1 tab PO BID PRN 07/17/18 06/15/20 History sertraline 100 mg PO QAM 07/17/18 06/15/20 History sitagliptin 50 mg PO QAM 07/17/18 06/15/20 History theophylline 300 mg PO BID 07/17/18 06/15/20 History levothyroxine 50 mcg PO DAILY 06/15/20 06/15/20 History Allergies Allergy/AdvReac Type Severity Reaction Status Date / Time adhesive Allergy Unknown PULLS SKIN Verified 06/15/20 18:33 OFF Penicillins Allergy Unknown TONGUE Verified 06/15/20 18:33 SWELLING azithromycin AdvReac Nausea Verified 06/15/20 18:33 Past Med/Surg History Medical History (Updated 06/15/20 @ 19:52 by Eliseo Calvo DO) Arthritis Chronic renal failure, stage 3 (moderate) COPD (chronic obstructive pulmonary disease) Depression Diabetes Lung cancer Neutropenic fever Orthostatic hypotension Right knee DJD Surgical History Hx of right knee surgery Family History Other Diabetes Heart disease Hypertension Lung disease Social History Smoking Status: Current every day smoker Tobacco Type: Cigarettes Cigarettes Per Day: 10; Second Hand Exposure: No; Hx Alcohol Use: No Hx Substance Use: No Preferred Language: [place]i Communication Ability: Effective Chipper Feeder Required: No Beliefs That Will Affect Care: None marital status: / Current Living Situation: Family Current Living Situation Comment: Granddaughter Feels Safe at Home: Yes Assistive Devices: None Review of Systems A total of 10 systems reviewed and were otherwise negative Physical Exam Vital Signs Vital Signs - 24 hr 06/15/20 16:12 06/15/20 17:00 06/15/20 17:02 Temperature 37 C Temperature Source Oral Pulse Rate 69 66 66 Pulse Rate [Exercises] Pulse Rate [Right Finger] 66 Pulse Rate from SpO2 Sensor 66 66 Pulse Rhythm Regular Pulse Strength Normal Respiratory Rate 22 17 13 Respiratory Rate [Exercises] Respiratory Effort / Characteristics Non-Labored Respiratory Depth Normal Respiratory Pattern Regular Blood Pressure 116/78 147/94 H Blood Pressure [Left Arm] 147/94 H Blood Pressure Mean 90 105 Blood Pressure Mean [Left Arm] 111 Pulse Oximetry 97 99 99 Pulse Oximetry [Exercises] Oxygen Delivery Method Room Air Nasal Cannula Oxygen Flow Rate 2 Sepsis Recent Fever Within 48 Hours No Sepsis New/Unexplained Change in Mental Status N/A Sepsis Action Taken by Nursing No Action Required 06/15/20 17:10 06/15/20 17:20 06/15/20 17:30 Temperature Temperature Source Pulse Rate 65 65 64 Pulse Rate [Exercises] Pulse Rate [Right Finger] Pulse Rate from SpO2 Sensor 65 65 64 Pulse Rhythm Pulse Strength Respiratory Rate 19 17 16 Respiratory Rate [Exercises] Respiratory Effort / Characteristics Respiratory Depth Respiratory Pattern Blood Pressure Blood Pressure [Left Arm] Blood Pressure Mean Blood Pressure Mean [Left Arm] Pulse Oximetry 100 99 100 Pulse Oximetry [Exercises] Oxygen Delivery Method Oxygen Flow Rate Sepsis Recent Fever Within 48 Hours Sepsis New/Unexplained Change in Mental Status Sepsis Action Taken by Nursing 06/15/20 17:40 06/15/20 17:50 06/15/20 18:00 Temperature Temperature Source Pulse Rate 64 64 65 Pulse Rate [Exercises] Pulse Rate [Right Finger] Pulse Rate from SpO2 Sensor 63 65 64 Pulse Rhythm Pulse Strength Respiratory Rate 15 17 20 Respiratory Rate [Exercises] Respiratory Effort / Characteristics Respiratory Depth Respiratory Pattern Blood Pressure Blood Pressure [Left Arm] Blood Pressure Mean Blood Pressure Mean [Left Arm] Pulse Oximetry 100 100 100 Pulse Oximetry [Exercises] Oxygen Delivery Method Oxygen Flow Rate Sepsis Recent Fever Within 48 Hours Sepsis New/Unexplained Change in Mental Status Sepsis Action Taken by Nursing 06/15/20 18:10 06/15/20 18:20 06/15/20 18:30 Temperature Temperature Source Pulse Rate 62 62 65 Pulse Rate [Exercises] Pulse Rate [Right Finger] Pulse Rate from SpO2 Sensor 63 62 64 Pulse Rhythm Pulse Strength Respiratory Rate 16 18 15 Respiratory Rate [Exercises] Respiratory Effort / Characteristics Respiratory Depth Respiratory Pattern Blood Pressure Blood Pressure [Left Arm] Blood Pressure Mean Blood Pressure Mean [Left Arm] Pulse Oximetry 100 99 99 Pulse Oximetry [Exercises] Oxygen Delivery Method Oxygen Flow Rate Sepsis Recent Fever Within 48 Hours Sepsis New/Unexplained Change in Mental Status Sepsis Action Taken by Nursing 06/15/20 19:11 06/15/20 19:13 Temperature Temperature Source Pulse Rate Pulse Rate [Exercises] 97 H Pulse Rate [Right Finger] 66 Pulse Rate from SpO2 Sensor Pulse Rhythm Pulse Strength Respiratory Rate 18 Respiratory Rate [Exercises] 24 Respiratory Effort / Characteristics Non-Labored Respiratory Depth Normal Respiratory Pattern Regular Blood Pressure Blood Pressure [Left Arm] 125/72 Blood Pressure Mean Blood Pressure Mean [Left Arm] 89 Pulse Oximetry 99 Pulse Oximetry [Exercises] 88 L Oxygen Delivery Method Nasal Cannula Room Air Oxygen Flow Rate 2 Sepsis Recent Fever Within 48 Hours Sepsis New/Unexplained Change in Mental Status Sepsis Action Taken by Nursing CONSTITUTIONAL/VITAL SIGNS: Reviewed / noted above. GENERAL: Non-toxic in appearance. INTEGUMENTARY: Warm, dry, and [place]. HEAD: Normocephalic. EYES: without scleral icterus or trauma. ENT/OROPHARYNX: clear and moist. LYMPHADENOPATHY/NECK: Is supple without lymphadenopathy or meningismus. RESPIRATORY: Lungs clear and equal. Mild increased work of breathing with speaking. CARDIOVASCULAR: Regular rate and rhythm. GI/ABDOMEN: Soft and nontender. No organomegaly or pulsatile mass. No rebound or guarding. Normal bowel sounds. EXTREMITIES: Warm and well perfused. BACK: No CVA tenderness. NEUROLOGICAL: Intact without focal deficits. PSYCHIATRIC: normal affect. MUSCULOSKELETAL: Normally developed with good muscle tone. TRIAGE NURSING DOCUMENTATION REVIEWED. Course Administered Medications Discontinued Medications Sodium Chloride (Nss) 500 mls @ 999 mls/hr IV .Q31M SIMONA Stop: 06/15/20 17:00 Last Infusion: 06/15/20 17:13 Dose: 0 mls/hr Documented by: [id number] Admin: 06/15/20 16:46 Dose: 999 mls/hr Documented by: [id number] Medical Decision Making Differential Diagnosis The differential was considered includes acute myocardial infarction, acute coronary syndrome, myocarditis, pericarditis, pericardial effusions /tamponad, esophageal perforation, pulmonary embolism, pneumonia, pneumothorax, cardiomyopathy, congestive heart, anemia , COPD/asthma exacerbation. Medical Records Attestation: I reviewed the patient's medical records. Home Medications Current Medication List: was personally reviewed by me Laboratory Data Attestation: I reviewed the patient's lab results. Result diagrams: 06/15/20 16:41 06/15/20 16:41 Lab Results 06/15/20 06/15/20 Range/Units 16:41 16:41 WBC 6.37 (4.8-10.8) K/uL RBC 3.93 L (4.2-5.4) M/uL Hgb 11.7 L (12.0-16.0) g/dL Hct 35.7 L (37-47) % MCV 90.8 (80-100) fL MCH 29.8 (25-34) pg MCHC 32.5 (32-36) g/dL RDW Std Deviation 55.1 H (36.4-46.3) fL RDW Coeff of Maye 16.7 H (11.5-14.5) % Plt Count 133 (130-400) K/uL MPV 11.5 H (7.4-10.4) fL Immature Gran % (Auto) 0.2 % Neut % (Auto) 56.2 % Lymph % (Auto) 30.1 % Hood % (Auto) 7.8 % Eos % (Auto) 5.5 % Baso % (Auto) 0.2 % Neut # (Auto) 3.58 (1.4-6.5) K/uL Lymph # (Auto) 1.92 (1.2-3.4) K/uL Hood # (Auto) 0.50 (0.11-0.59) K/uL Eos # (Auto) 0.35 (0-0.5) K/uL Baso # (Auto) 0.01 (0-0.2) K/uL Immature Gran # (Auto) 0.01 (0.00-0.02) K/uL Platelet Estimate Decreased L (Normal) Tear Drop Cells 1+ Sodium 139 (136-145) mmol/L Potassium 4.4 (3.5-5.1) mmol/L Chloride 109 H (98-107) mmol/L Carbon Dioxide 24 (21-32) mmol/L Anion Gap 6.0 (3-11) BUN 32 H (7-18) mg/dl Creatinine 2.16 H (0.6-1.2) mg/dl Est Cr Clr Drug Dosing 26.3 ml/min Est GFR ( Amer) 25.2 Est GFR (Non-Af Amer) 21.7 BUN/Creatinine Ratio 15.0 (10-20) Glucose 172 H (70-99) mg/dl Calcium 8.8 (8.5-10.1) mg/dl Total Bilirubin 0.4 (0.2-1) mg/dl AST 11 L (15-37) U/L ALT 17 (12-78) U/L Alkaline Phosphatase 136 H (45-117) U/L Troponin I < 0.015 (0-0.045) ng/ml Total Protein 7.2 (6.4-8.2) gm/dl Albumin 3.5 (3.4-5.0) gm/dl Globulin 3.7 (2.5-4.0) gm/dl Albumin/Globulin Ratio 0.9 (0.9-2) Imaging Data Radiologist's Impression: SINGLE VIEW CHEST CLINICAL HISTORY: Generalized weakness. Lung cancer. FINDINGS: An AP, portable, upright chest radiograph is compared to study dated 06/08/2020 and correlated with chest CT dated 05/20/2020. The examination is degraded by portable technique and apical lordotic positioning. The heart is enlarged noting atherosclerotic calcification of the thoracic aorta. The pulmonary vasculature is noncongested. Chronic interstitial thickening is similar to previous. There is bibasilar scarring/atelectasis. No airspace consolidation or large pleural effusion is identified. Nodular opacities in the suprahilar right lung were better assessed on the recent chest CT. No pneumothorax is seen. The skeletal structures are osteopenic. The bony thorax is grossly intact. IMPRESSION: 1. Cardiomegaly with no acute cardiopulmonary abnormality. 2. Right suprahilar nodular densities were better assessed on the recent chest CT.. ECG Data Attestation: I personally reviewed and interpreted this ECG as follows: Indication: + weakness Rate (beats per minute): 68 Rhythm: + normal sinus ECG ST segments: no ST elevation ECG Findings: no PVCs MDM Narrative Patient presents with a main complaint of some increased shortness of breath since earlier this morning. She also reports 5 episodes of small quantities of diarrhea since this morning. She was diagnosed with COVID-19 8 days ago. She generally feels weak. Her vital signs reveal a pulse ox of 97% on room air. She is afebrile. Blood pressure and heart rate were normal. The patient's EKG shows a normal sinus rhythm. CBC was unremarkable. BUN is 32 and creatinine is 2.16. These are about baseline for the patient. Her glucose is 176. Troponin was negative. Chest x-ray did not show acute process. The patient was told the results of the test. She was hydrated with some IV fluids. The patient was told the results of the test. She states that she would like to go home. She seems somewhat weak. The nurse did do an ambulatory pulse ox on the patient. During ambulation, the patient's pulse ox dropped to 88% and the patient became short of breath and weak and her heart rate increased from the 60s to 90s. For this reason, the patient will be seen by the hospitalist for further inpatient evaluation and care. Will defer PE evaluation to hospitalist service as the patient has baseline creatinine of 2. Impression & Plan COVID-19, Hypoxia, Weakness Discharge Plan Visit Data Chief Complaint: Illness Stated Complaint: COVID + , ILLNESS ED Provider: Eliseo Calvo Discharge Problem: COVID-19, Hypoxia, Weakness Patient Disposition: Being Evaluated by Hospitalist Forms Stand Alone Forms: [facility] Prescriptions Prescriptions: No Action carvedilol 6.25 mg tablet 6.25 mg PO BID RF: 0 albuterol sulfate 2.5 mg /3 mL (0.083 %) solution for nebulization 2.5 mg Inhalation Q4H PRN (Reason: Shortness Of Breath Or Wheezing) RF: 0 sertraline 100 mg tablet 100 mg PO QAM RF: 0 hydrocodone-acetaminophen 10-325 mg tablet 1 tab PO BID PRN (Reason: Pain) RF: 0 theophylline 300 mg tablet extended release 12 hr 300 mg PO BID RF: 0 folic acid 1 mg tablet 1 mg PO QAM RF: 0 sitagliptin 50 mg tablet 50 mg PO QAM RF: 0 Combivent Respimat 20-100 mcg/actuation Mist 1 puff INHALATION Q4H PRN (Reason: Shortness Of Breath Or Wheezing) RF: 0 levothyroxine 50 mcg tablet 50 mcg PO DAILY RF: 0 Referrals Referrals: Arthur Cruz [Primary Care Provider] -
[2020-06-15] MEDS ORDERED: SODIUM CHLORIDE 0.9% 500 ML IV SCH (16:30)
[2020-06-15 16:52] LABS: Mean Corpuscular Hgb Conc 32.5 g/dL (32-36)
[2020-06-15 17:15] LABS: Hematocrit (blood only) 35.7 % (37-47); Hemoglobin 11.7 g/dL (12.0-16.0); Mean Corpuscular Hemoglobin 29.8 pg (25-34); Mean Corpuscular Volume 90.8 fL (80-100); Mean Platelet Volume 11.5 fL (7.4-10.4); Platelet Count 133 K/uL (130-400); RDW Coefficient of Variation 16.7 % (11.5-14.5); RDW Standard Deviation 55.1 fL (36.4-46.3); Red Blood Count 3.93 M/uL (4.2-5.4); White Blood Count 6.37 K/uL (4.8-10.8)
[2020-06-15 17:16] LABS: Basophils # (auto) 0.01 K/uL (0-0.2); Basophils % (auto) 0.2 %; Eosinophils # (auto) 0.35 K/uL (0-0.5); Eosinophils % (auto) 5.5 %; Immature Granulocytes # (auto) 0.01 K/uL (0.00-0.02); Immature Granulocytes % (auto) 0.2 %; Lymphocytes # (auto) 1.92 K/uL (1.2-3.4); Lymphocytes % (auto) 30.1 %; Monocytes % (auto) 7.8 %; Neutrophils # (auto) 3.58 K/uL (1.4-6.5); Neutrophils % (auto) 56.2 %; Platelet Estimate Decreased (Normal); Tear Drop Cells 1+
[2020-06-15 17:30] LABS: Alanine Aminotransferase 17 U/L (12-78); Albumin Level 3.5 gm/dl (3.4-5.0); Aspartate Aminotransferase 11 U/L (15-37); Blood Urea Nitrogen 32 mg/dl (7-18); Calcium 8.8 mg/dl (8.5-10.1); Carbon Dioxide 24 mmol/L (21-32); Chloride 109 mmol/L (98-107); Creatinine Clr Calc Pharmacy 26.3 ml/min; Est GFR (African American) 25.2; Est GFR (Non-African American) 21.7; Glucose 172 mg/dl (70-99); Potassium 4.4 mmol/L (3.5-5.1); Sodium 139 mmol/L (136-145)
[2020-06-15 17:34] LABS: Albumin Globulin Ratio 0.9 (0.9-2); Alkaline Phosphatase 136 U/L (45-117); Bilirubin,Total 0.4 mg/dl (0.2-1); Globulin 3.7 gm/dl (2.5-4.0); Total Protein 7.2 gm/dl (6.4-8.2); Troponin I < 0.015 ng/ml (0-0.045)
--- NOTE | 2020-06-15 17:57 | XRay Report ---
SINGLE VIEW CHEST CLINICAL HISTORY: Generalized weakness. Lung cancer. FINDINGS: An AP, portable, upright chest radiograph is compared to study dated 06/08/2020 and correla shannon with chest CT dated 05/20/2020. The examination is degraded by portable technique and apical lordo tic positioning. The heart is enlarged noting atherosclerotic calcification of the thoracic aorta. Th e pulmonary vasculature is noncongested. Chronic interstitial thickening is similar to previous. Ther e is bibasilar scarring/atelectasis. No airspace consolidation or large pleural effusion is identifie d. Nodular opacities in the suprahilar right lung were better assessed on the recent chest CT. No pne umothorax is seen. The skeletal structures are osteopenic. The bony thorax is grossly intact. IMPRESSION: 1. Cardiomegaly with no acute cardiopulmonary abnormality. 2. Right suprahilar nodular densities were better assessed on the recent chest CT.. ACT 112: Negative or not required by law. Electronically signed by: Jaxon Felipe M.D. 06/15/2020 5:55 PM
[2020-06-15 20:52] LABS: D Dimer 2000 ug/L FEU (0-500)
--- NOTE | 2020-06-15 21:47 | History & Physical Report ---
Date of Service June 15, 2020 Assessment & Plan (1) COVID-19: COVID-19 infection/COPD exacerbation/hypoxia- Patient symptoms had been improving, and then abruptly have worsened, possibly suggesting a secondary bacterial superinfection developing Decadron 6 mg IV every morning. Ceftriaxone 2 g IV daily Azithromycin 500 mg IV daily Ventolin HFA 2 puffs 4 times daily, and every 2 hours as needed Nasal cannula oxygen, titrate to keep pulse ox 95% Continue theophylline 3 mg p.o. twice daily check a theophylline level. Elevated D-dimer, has increased from 1672 to 2000, compared to initial reading of 06/08/2020. Unable to order CT PE protocol due to decreased GFR. Will order VQ scan Present on Admission?: Yes (2) COPD (chronic obstructive pulmonary disease): See above Present on Admission?: Yes (3) Hypoxia: See above Present on Admission?: Yes (4) Diabetes: Hold sitagliptin. Placed in Accu-Cheks before meals and at bedtime with NovoLog coverage per scale Present on Admission?: Yes (5) Depression: Continue sertraline 100 mg daily Present on Admission?: Yes (6) Hypertension: Continue carvedilol 6.25 mg p.o. twice daily Present on Admission?: Yes (7) Chronic renal failure, stage 3 (moderate): Creatinine 2.16, with range 1.77-2.16. Follow serially Present on Admission?: Yes History of Present Illness Chief Complaint: The patient presents to the emergency department with report of having been diagnosed for COVID-19 on 06/08/2020 in this ED, was discharged to home, but reports that since this morning she has developed increased shortness of breath and fatigue. Primary Care Provider: Arthur Cruz The patient is a 34-year-old female with a past medical history including hypothyroidism, elevated LFTs, UTI, neutropenic fever, acute renal failure, pancytopenia, history of right knee surgery, CKD stage III, hypertension, depression, COPD, diabetes mellitus, arthritis, lung cancer, and COVID-19 diagnosed on 06/08/2020. In addition to the worsening shortness of breath that began this morning, she also had 5 nonbloody small-volume loose stools since this morning. She reports dyspnea on exertion with relatively short distances. She does have history of COPD and lung cancer, and is on theophylline, Combivent and albuterol nebulizers. Allergies Allergy/AdvReac Type Severity Reaction Status Date / Time adhesive Allergy Unknown PULLS SKIN Verified 06/15/20 18:33 OFF Penicillins Allergy Unknown TONGUE Verified 06/15/20 18:33 SWELLING azithromycin AdvReac Nausea Verified 06/15/20 18:33 Home Medications Medication Instructions Recorded Confirmed Type Combivent Respimat 1 puff INHALATION Q4H PRN 07/17/18 06/15/20 History albuterol sulfate 2.5 mg INHALATION Q4H PRN 07/17/18 06/15/20 History carvedilol 6.25 mg PO BID 07/17/18 06/15/20 History folic acid 1 mg PO QAM 07/17/18 06/15/20 History hydrocodone-acetaminophen 1 tab PO BID PRN 07/17/18 06/15/20 History sertraline 100 mg PO QAM 07/17/18 06/15/20 History sitagliptin 50 mg PO QAM 07/17/18 06/15/20 History theophylline 300 mg PO BID 07/17/18 06/15/20 History levothyroxine 50 mcg PO DAILY 06/15/20 06/15/20 History Past Med/Surg History Medical History (Updated 06/15/20 @ 19:52 by Eliseo Calvo DO) Arthritis Chronic renal failure, stage 3 (moderate) COPD (chronic obstructive pulmonary disease) Depression Diabetes Lung cancer Neutropenic fever Orthostatic hypotension Right knee DJD Surgical History Hx of right knee surgery Family History Other Diabetes Heart disease Hypertension Lung disease Social History Smoking Status: Current every day smoker Tobacco Type: Cigarettes Cigarettes Per Day: 10; Second Hand Exposure: No; Hx Alcohol Use: No Hx Substance Use: No Preferred Language: Egyptian Communication Ability: Effective [employer] Required: No Beliefs That Will Affect Care: None marital status: / Current Living Situation: Family Current Living Situation Comment: [facility] Other Information That Helps Us Care for You: No Feels Safe at Home: Yes Safety Concerns: Feels Safe At This Time Assistive Devices: Oxygen - Continuous Review of Systems Review of Systems: The patient denies palpitations, cough, lower extremity swelling, sore throat, fevers, chills, sweats, nausea, vomiting, diarrhea , constipation, abdominal pain, pelvic pain, blood in urine or stool, dysuria, urinary frequency or urgency, lightheadedness, dizziness, headache, memory loss, loss of consciousness, rash, abnormal bruising or bleeding, imbalance, focal weakness, numbness or tingling in arms or legs, generalized arthralgias or myalgias, back or neck pain, or night sweats. The review of systems is otherwise negative other than for that already noted above, and at least 10 systems have been reviewed. Physical Exam Physical Exam: The patient is awake, alert and oriented 3, looks fatigued, normocephalic and atraumatic, lying in bed and in no acute distress. HEENT--PERRL, EOMI, mucous membranes and oropharynx dry. Neck--supple. No JVD. No bruits. Thyroid normal, trachea midline, no adenopathy. Heart--normal S1 and S2. No murmurs, rubs or gallops. Lungs--clear bilaterally, no respiratory distress, no accessory muscle use. Abdomen--normal bowel sounds and soft. Nontender. Nondistended. Extremities--no cyanosis or clubbing. No edema. Dermatologic--normal skin turgor, normal color, no abnormal lymph nodes, no rash. Neurologic--cranial nerves II through XII grossly intact. Rheumatologic--normal range of motion. Psychiatric--normal affect. Results & Data Results & Data ([facility]) Vital Signs (Past 12 Hours) Vital Signs Temp Pulse Pulse Pulse Resp Resp BP 06/15/20 21:42 63 18 132/94 06/15/20 21:26 06/15/20 21:00 65 19 115/74 06/15/20 20:30 66 21 127/84 06/15/20 20:00 68 18 124/82 06/15/20 19:30 63 18 106/80 06/15/20 19:13 97 H 24 06/15/20 19:12 65 17 125/72 06/15/20 19:11 66 18 06/15/20 19:00 66 23 06/15/20 18:30 65 15 06/15/20 18:20 62 18 06/15/20 18:10 62 16 06/15/20 18:00 65 20 06/15/20 17:50 64 17 06/15/20 17:40 64 15 06/15/20 17:30 64 16 06/15/20 17:20 65 17 06/15/20 17:10 65 19 06/15/20 17:02 66 13 147/94 H 06/15/20 17:00 66 66 17 06/15/20 16:12 98.6 F 69 22 116/78 BP Pulse Ox Pulse Ox 06/15/20 21:42 100 06/15/20 21:26 99 06/15/20 21:00 99 06/15/20 20:30 99 06/15/20 20:00 100 06/15/20 19:30 99 06/15/20 19:13 88 L 06/15/20 19:12 98 06/15/20 19:11 125/72 99 06/15/20 19:00 99 06/15/20 18:30 99 06/15/20 18:20 99 06/15/20 18:10 100 06/15/20 18:00 100 06/15/20 17:50 100 06/15/20 17:40 100 06/15/20 17:30 100 06/15/20 17:20 99 06/15/20 17:10 100 06/15/20 17:02 99 06/15/20 17:00 147/94 H 99 06/15/20 16:12 97 Laboratory Results Laboratory Results WBC 6.37 K/uL (4.8-10.8) 06/15/20 16:41 RBC 3.93 M/uL (4.2-5.4) L 06/15/20 16:41 Hgb 11.7 g/dL (12.0-16.0) L 06/15/20 16:41 Hct 35.7 % (37-47) L 06/15/20 16:41 MCV 90.8 fL (80-100) 06/15/20 16:41 MCH 29.8 pg (25-34) 06/15/20 16:41 MCHC 32.5 g/dL (32-36) 06/15/20 16:41 RDW Std Deviation 55.1 fL (36.4-46.3) H 06/15/20 16:41 RDW Coeff of Maye 16.7 % (11.5-14.5) H 06/15/20 16:41 Plt Count 133 K/uL (130-400) 06/15/20 16:41 MPV 11.5 fL (7.4-10.4) H 06/15/20 16:41 Immature Gran % (Auto) 0.2 % 06/15/20 16:41 Neut % (Auto) 56.2 % 06/15/20 16:41 Lymph % (Auto) 30.1 % 06/15/20 16:41 Stewart % (Auto) 7.8 % 06/15/20 16:41 Eos % (Auto) 5.5 % 06/15/20 16:41 Baso % (Auto) 0.2 % 06/15/20 16:41 Neut # (Auto) 3.58 K/uL (1.4-6.5) 06/15/20 16:41 Lymph # (Auto) 1.92 K/uL (1.2-3.4) 06/15/20 16:41 Stewart # (Auto) 0.50 K/uL (0.11-0.59) 06/15/20 16:41 Eos # (Auto) 0.35 K/uL (0-0.5) 06/15/20 16:41 Baso # (Auto) 0.01 K/uL (0-0.2) 06/15/20 16:41 Immature Gran # (Auto) 0.01 K/uL (0.00-0.02) 06/15/20 16:41 Platelet Estimate Decreased (Normal) L 06/15/20 16:41 Tear Drop Cells 1+ 06/15/20 16:41 D-Dimer 2000 ug/L FEU (0-500) H* 06/15/20 16:41 Sodium 139 mmol/L (136-145) 06/15/20 16:41 Potassium 4.4 mmol/L (3.5-5.1) 06/15/20 16:41 Chloride 109 mmol/L (98-107) H 06/15/20 16:41 Carbon Dioxide 24 mmol/L (21-32) 06/15/20 16:41 Anion Gap 6.0 (3-11) 06/15/20 16:41 BUN 32 mg/dl (7-18) H 06/15/20 16:41 Creatinine 2.16 mg/dl (0.6-1.2) H 06/15/20 16:41 Est Cr Clr Drug Dosing 26.3 ml/min 06/15/20 16:41 Est GFR ( Amer) 25.2 06/15/20 16:41 Est GFR (Non-Af Amer) 21.7 06/15/20 16:41 BUN/Creatinine Ratio 15.0 (10-20) 06/15/20 16:41 Glucose 172 mg/dl (70-99) H 06/15/20 16:41 Calcium 8.8 mg/dl (8.5-10.1) 06/15/20 16:41 Total Bilirubin 0.4 mg/dl (0.2-1) 06/15/20 16:41 AST 11 U/L (15-37) L 06/15/20 16:41 ALT 17 U/L (12-78) 06/15/20 16:41 Alkaline Phosphatase 136 U/L (45-117) H 06/15/20 16:41 Troponin I < 0.015 ng/ml (0-0.045) 06/15/20 16:41 Total Protein 7.2 gm/dl (6.4-8.2) 06/15/20 16:41 Albumin 3.5 gm/dl (3.4-5.0) 06/15/20 16:41 Globulin 3.7 gm/dl (2.5-4.0) 06/15/20 16:41 Albumin/Globulin Ratio 0.9 (0.9-2) 06/15/20 16:41 Urine Color Yellow 06/15/20 23:25 Urine Appearance Clear (Clear) 06/15/20 23:25 Urine pH 5.0 (4.5-7.5) 06/15/20 23:25 Ur Specific [place] 1.015 (1.000-1.030) 06/15/20 23:25 Urine Protein Negative (Negative) 06/15/20 23:25 Urine Glucose (UA) Negative (Negative) 06/15/20 23:25 Urine Ketones Negative (Negative) 06/15/20 23:25 Urine Blood Negative (Negative) 06/15/20 23: Urine Nitrite Negative (Negative) 06/15/20 23:25 Urine Bilirubin Negative (Negative) 06/15/20 23:25 Urine Urobilinogen Negative (Negative) 06/15/20 23:25 Ur Leukocyte Esterase Negative (Negative) 06/15/20 23:25 Theophylline 12 mcg/ml (10-20) 06/15/20 21:54 Diagnostic Findings [facility], [id number] XRay Report Patient: FELISA SCHWAB Date: 06/15/20MR#: [id number]: 46 [address] DRAcct ID:[id number]: [address]: [facility] Zip: [place], [place] [address]Y[place]: [birth year]Location: EDSex: FRoom/Bed:Att Phy:Diagnosis: COVID + , ILLNESSPri Phy: Arthur Cruz M.D.Service Date: 06/15/20Fa Phy:Interpreting Phy: Jaxon Felipe MDAdmit Phy: Ordering Phy: Eliseo Calvo D.O. cc: ~ SINGLE VIEW CHEST CLINICAL HISTORY: Generalized weakness. Lung cancer. FINDINGS: An AP, portable, upright chest radiograph is compared to study dated 06/08/2020 and correlated with chest CT dated 05/20/2020. The examination is degraded by portable technique and apical lordotic positioning. The heart is enlarged noting atherosclerotic calcification of the thoracic aorta. The pulmonary vasculature is noncongested. Chronic interstitial thickening is similar to previous. There is bibasilar scarring/atelectasis. No airspace consolidation or large pleural effusion is identified. Nodular opacities in the suprahilar right lung were better assessed on the recent chest CT. No pneumothorax is seen. The skeletal structures are osteopenic. The bony thorax is grossly intact. IMPRESSION: 1. Cardiomegaly with no acute cardiopulmonary abnormality. 2. Right suprahilar nodular densities were better assessed on the recent chest CT.. ACT 112: Negative or not required by law. Electronically signed by: Jaxon Felipe M.D. 06/15/2020 5:55 PM Dictated: 06/15/201753Transcribed: 06/15/201753 Code Status & VTE Plan Code Status Full code VTE Prophylaxis Plan VTE Prophylaxis will be ordered: Yes PG Care Time/CCT Total # of Minutes Spent Total Time Spent with Patient: Total time spent is greater than 50% in coordination of care (as documented) at patient's floor/unit and/or counseling patient: Coding Level of Care Code 27820 Initial Inpt Care Lvl 3 Diagnoses COVID-19 U07.1 COPD (chronic obstructive pulmonary disease) J44.9 Hypoxia R09.02 Diabetes E11.9 Depression F32.9 Hypertension I10 Chronic renal failure, stage 3 (moderate) N18.3
[2020-06-15] MEDS ORDERED: ENOXAPARIN 0.5 MG/KG SQ SCH (22:00)
[2020-06-15] MEDS ORDERED: ACETAMINOPHEN 325 MG TAB PO PRN (22:08)
[2020-06-15] MEDS ORDERED: DEXAMETHASONE SOD INJ 10 MG/ML VIAL IV ONE (22:08)
[2020-06-15] MEDS ORDERED: ONDANSETRON INJ 2 MG/ML 2 ML VIAL IV PRN (22:08)
[2020-06-15] MEDS ORDERED: MAGNESIUM HYDROXIDE SUSP 30 ML UDC PO PRN (22:08)
[2020-06-15] MEDS ORDERED: HYDROcodone/ACETAMINOPHEN 10/325 TAB PO PRN (22:08)
[2020-06-15] MEDS ORDERED: ALUMINUM/MAGNESIUM SUSP 30 ML UDC PO PRN (22:08)
[2020-06-15] MEDS: dexAMETHasone 6 MG in SYRINGE 0 ML IV SCH (22:57)
[2020-06-15] MEDS: THEOPHYLLINE 300MG EXTENDED REL TAB PO SCH (22:58)
[2020-06-15] MEDS: carvediloL 6.25 MG TAB PO SCH (23:00)
[2020-06-15] MEDS: cefTRIAXone SODIUM 2,000 MG in DEXTROSE 5% 50 ML IV SCH (23:07)
[2020-06-15] MEDS ORDERED: ONDANSETRON 4 MG OD TAB PO PRN (23:38)
[2020-06-15 23:42] LABS: Appearance Urine Clear (Clear); Bilirubin Urine Negative (Negative); Blood Urine Negative (Negative); Color Urine Yellow; Glucose Urine UA Negative (Negative); Ketones Urine Negative (Negative); Leukocyte Esterase Urine Negative (Negative); Nitrite Urine Negative (Negative); Protein Urine Negative (Negative); Specific Gravity Urine 1.015 (1.000-1.030); Urobilinogen Urine Negative (Negative)
[2020-06-16] MEDS: LEVOTHYROXINE SODIUM 50 MCG TABLET PO SCH (05:55)
[2020-06-16 07:09] LABS: Basophils # (auto) 0.01 K/uL (0-0.2); Basophils % (auto) 0.3 %; Eosinophils # (auto) 0.01 K/uL (0-0.5); Eosinophils % (auto) 0.3 %; Hematocrit (blood only) 34.2 % (37-47); Hemoglobin 11.1 g/dL (12.0-16.0); Immature Granulocytes # (auto) 0.01 K/uL (0.00-0.02); Immature Granulocytes % (auto) 0.3 %; Lymphocytes # (auto) 0.73 K/uL (1.2-3.4); Lymphocytes % (auto) 19.4 %; Mean Corpuscular Hemoglobin 29.3 pg (25-34); Mean Corpuscular Hgb Conc 32.5 g/dL (32-36); Mean Corpuscular Volume 90.2 fL (80-100); Mean Platelet Volume 10.8 fL (7.4-10.4); Monocytes # (auto) 0.04 K/uL (0.11-0.59); Monocytes % (auto) 1.1 %; Neutrophils # (auto) 2.97 K/uL (1.4-6.5); Neutrophils % (auto) 78.6 %; Platelet Count 130 K/uL (130-400); RDW Coefficient of Variation 16.6 % (11.5-14.5); RDW Standard Deviation 54.7 fL (36.4-46.3); Red Blood Count 3.79 M/uL (4.2-5.4); White Blood Count 3.77 K/uL (4.8-10.8)
[2020-06-16] MEDS: ALBUTEROL HFA 8 GM INHALER INH SCH ×4 (07:13→19:46)
[2020-06-16 07:19] LABS: INR 1.1 (0.9-1.1); Partial Thromboplastin Time 28.9 Seconds (21.0-31.0); Prothrombin Time 11.4 Seconds (9.0-12.0)
[2020-06-16 07:44] LABS: Albumin Level 3.4 gm/dl (3.4-5.0); Calcium 8.9 mg/dl (8.5-10.1); Creatinine Clr Calc Pharmacy 28.6 ml/min; Est GFR (African American) 29.6; Est GFR (Non-African American) 25.5; Magnesium 2.1 mg/dl (1.8-2.4); Potassium 4.4 mmol/L (3.5-5.1)
[2020-06-16 07:46] LABS: Bilirubin,Total 0.4 mg/dl (0.2-1); Globulin 3.5 gm/dl (2.5-4.0); Total Protein 6.9 gm/dl (6.4-8.2)
[2020-06-16] MEDS: carvediloL 6.25 MG TAB PO SCH ×2 (07:58→20:08)
[2020-06-16] MEDS: SERTRALINE HCL 100 MG TABLET PO SCH (07:58)
[2020-06-16] MEDS: THEOPHYLLINE 300MG EXTENDED REL TAB PO SCH ×2 (07:58→20:08)
[2020-06-16] MEDS: FOLIC ACID 1 MG TAB PO SCH (07:58)
[2020-06-16] MEDS: dexAMETHasone 6 MG in SYRINGE 0 ML IV SCH (07:58)
[2020-06-16] MEDS: AZITHROMYCIN 500 MG in DEXTROSE 5% 250 ML IV SCH (09:01)
[2020-06-16] MEDS: ENOXAPARIN INJ 60 MG/0.6 ML SYR SQ SCH (09:01)
--- NOTE | 2020-06-16 11:00 | Electrocardiogram Report ---
Test Reason : Blood Pressure : / mmHG Vent. Rate : 068 BPM Atrial Rate : 068 BPM P-R Int : 120 ms QRS Dur : 084 ms QT Int : 426 ms P-R-T Axes : 019 -05 041 degrees QTc Int : 452 ms Poor data quality, interpretation may be adversely affected Normal sinus rhythm Nonspecific T wave abnormality Abnormal ECG When compared with ECG of 08-JUN-2020 16:20, Nonspecific T wave abnormality, improved in Inferior leads Confirmed by Willie Freitas ([id number]) on 06/16/2020 10:59:44 AM Referred By: REFERRED SELF Confirmed By:Anthony Freitas
[2020-06-16] MEDS: cefTRIAXone SODIUM 2,000 MG in DEXTROSE 5% 50 ML IV SCH (23:22)
--- NOTE | 2020-06-16 23:27 | Hospitalist Progress Note ---
Date of Service June 16, 2020 Assessment & Plan (1) COVID-19: COVID-19 infection/COPD exacerbation/hypoxia- Patient symptoms had been improving, and then abruptly have worsened, possibly suggesting a secondary bacterial superinfection developing Decadron 6 mg IV every morning. Ceftriaxone 2 g IV daily Azithromycin 500 mg IV daily Ventolin HFA 2 puffs 4 times daily, and every 2 hours as needed Nasal cannula oxygen, titrate to keep pulse ox 95% Continue theophylline 3 mg p.o. twice daily check a theophylline level. Elevated D-dimer, has increased from 1672 to 2000, compared to initial reading of 06/08/2020. Unable to order CT PE protocol due to decreased GFR. Currently does not appear to have Pulmonary emboli. Given no tachycardia and low requirement of oxygen. (2) COPD (chronic obstructive pulmonary disease): See above (3) Hypoxia: See above (4) Diabetes: Hold sitagliptin. Placed in Accu-Cheks before meals and at bedtime with NovoLog coverage per scale (5) Depression: Continue sertraline 100 mg daily (6) Hypertension: Continue carvedilol 6.25 mg p.o. twice daily (7) Chronic renal failure, stage 3 (moderate): Creatinine 2.16, with range 1.77-2.16. Follow serially Admission and Anticipated Discharge Date Admission Date: June 15, 2020 Subjective 74 yo female reports feeling well. She has no new complaints at this time. She continues to require oxygen at bedside. Review of Systems Review of Systems: The patient denies palpitations, cough, lower extremity swelling, sore throat, fevers, chills, sweats, nausea, vomiting, diarrhea , constipation, abdominal pain, pelvic pain, blood in urine or stool, dysuria, urinary frequency or urgency, lightheadedness, dizziness, headache, memory loss, loss of consciousness, rash, abnormal bruising or bleeding, imbalance, focal weakness, numbness or tingling in arms or legs, generalized arthralgias or myalgias, back or neck pain, or night sweats. The review of systems is otherwise negative other than for that already noted above, and at least 10 systems have been reviewed. Physical Exam Physical Exam: The patient is awake, alert and oriented 3, looks fatigued, normocephalic and atraumatic, lying in bed and in no acute distress. HEENT--PERRL, EOMI, mucous membranes and oropharynx dry. Neck--supple. No JVD. No bruits. Thyroid normal, trachea midline, no adenopathy. Heart--normal S1 and S2. No murmurs, rubs or gallops. Lungs--clear bilaterally, no respiratory distress, no accessory muscle use. Abdomen--normal bowel sounds and soft. Nontender. Nondistended. Extremities--no cyanosis or clubbing. No edema. Dermatologic--normal skin turgor, normal color, no abnormal lymph nodes, no rash. Neurologic--cranial nerves II through XII grossly intact. Rheumatologic--normal range of motion. Psychiatric--normal affect. Results & Data Results & Data ([facility]) Vital Signs (Past 12 Hours) Vital Signs Temp Pulse Pulse Resp BP Pulse Ox 06/16/20 23:24 36.8 C 71 20 113/7 L 98 06/16/20 20:07 36.8 C 72 18 111/64 98 06/16/20 19:47 81 18 98 06/16/20 15:30 36.9 C 89 20 110/68 96 06/16/20 15:05 84 18 96 06/16/20 15:00 81 06/16/20 12:01 36.8 C 83 18 103/61 95 PG Care Time/CCT Total # of Minutes Spent Total Time Spent with Patient: Total time spent is greater than 50% in coordin ation of care (as documented) at patient's floor/unit and/or counseling patient: Coding Level of Care Code 86487 Subseq Hosp Care Lvl 2 Diagnoses COVID-19 U07.1 COPD (chronic obstructive pulmonary disease) J44.9 Hypoxia R09.02 Diabetes E11.9 Depression F32.9 Hypertension I10 Chronic renal failure, stage 3 (moderate) N18.3 Time Spent (min) 25
[2020-06-16] MEDS ORDERED: GLUCOSE 10 TABS/TUBE PO PRN (23:41)
[2020-06-16] MEDS ORDERED: CARBOHYDRATES FOR HYPOGLYCEMIA PO PRN (23:41)
[2020-06-16] MEDS ORDERED: GLUCOSE 40% GEL 15 GM TUBE PO PRN (23:41)
[2020-06-16] MEDS ORDERED: DEXTROSE 50% 50 ML SYRINGE IV PRN (23:41)
[2020-06-16] MEDS ORDERED: GLUCAGON FOR INJ 1 MG VIAL SQ PRN (23:41)
[2020-06-17] MEDS: INSULIN GLARGINE SOLOSTAR 100 UNITS/ML 3 ML PEN SC SCH ×3 (00:56→22:15)
[2020-06-17] MEDS: INSULIN ASPART 100 UNITS/ML 3 ML PEN SC SCH ×5 (00:57→22:16)
[2020-06-17] MEDS: LEVOTHYROXINE SODIUM 50 MCG TABLET PO SCH (05:45)
[2020-06-17] MEDS: ALBUTEROL HFA 8 GM INHALER INH SCH ×4 (07:00→19:19)
[2020-06-17 07:52] LABS: Basophils # (auto) 0.01 K/uL (0-0.2); Basophils % (auto) 0.1 %; Eosinophils # (auto) 0.15 K/uL (0-0.5); Eosinophils % (auto) 2.2 %; Hematocrit (blood only) 30.8 % (37-47); Hemoglobin 10.1 g/dL (12.0-16.0); Immature Granulocytes # (auto) 0.03 K/uL (0.00-0.02); Immature Granulocytes % (auto) 0.4 %; Lymphocytes # (auto) 1.41 K/uL (1.2-3.4); Lymphocytes % (auto) 21.1 %; Mean Corpuscular Hemoglobin 29.4 pg (25-34); Mean Corpuscular Hgb Conc 32.8 g/dL (32-36); Mean Corpuscular Volume 89.5 fL (80-100); Mean Platelet Volume 10.6 fL (7.4-10.4); Monocytes # (auto) 0.61 K/uL (0.11-0.59); Monocytes % (auto) 9.1 %; Neutrophils # (auto) 4.46 K/uL (1.4-6.5); Neutrophils % (auto) 67.1 %; Nucleated RBC # (auto) 0.02 K/uL (0-0); Nucleated RBC % (auto) 0.3 %; Platelet Count 137 K/uL (130-400); RDW Coefficient of Variation 16.8 % (11.5-14.5); Red Blood Count 3.44 M/uL (4.2-5.4); White Blood Count 6.67 K/uL (4.8-10.8)
[2020-06-17] MEDS: THEOPHYLLINE 300MG EXTENDED REL TAB PO SCH ×2 (08:01→22:05)
[2020-06-17] MEDS: SERTRALINE HCL 100 MG TABLET PO SCH (08:01)
[2020-06-17] MEDS: FOLIC ACID 1 MG TAB PO SCH (08:01)
[2020-06-17] MEDS: ENOXAPARIN INJ 60 MG/0.6 ML SYR SQ SCH (08:01)
[2020-06-17] MEDS: carvediloL 6.25 MG TAB PO SCH ×2 (08:02→22:03)
[2020-06-17] MEDS: dexAMETHasone 6 MG in SYRINGE 0 ML IV SCH (08:02)
[2020-06-17] MEDS: AZITHROMYCIN 500 MG in DEXTROSE 5% 250 ML IV SCH (08:08)
[2020-06-17 08:09] LABS: INR 1.1 (0.9-1.1); Partial Thromboplastin Ratio 0.9; Partial Thromboplastin Time 25.5 Seconds (21.0-31.0); Prothrombin Time 11.2 Seconds (9.0-12.0)
[2020-06-17 08:37] LABS: Albumin Level 3.2 gm/dl (3.4-5.0); BUN Creatinine Ratio 20.4 (10-20); Bilirubin,Total 0.4 mg/dl (0.2-1); Calcium 8.9 mg/dl (8.5-10.1); Creatinine Clr Calc Pharmacy 27.5 ml/min; Est GFR (African American) 28.3; Est GFR (Non-African American) 24.4; Globulin 3.2 gm/dl (2.5-4.0); Magnesium 2.2 mg/dl (1.8-2.4); Potassium 3.9 mmol/L (3.5-5.1); Total Protein 6.4 gm/dl (6.4-8.2)
--- NOTE | 2020-06-17 15:30 | Electrocardiogram Report ---
Test Reason : Blood Pressure : / mmHG Vent. Rate : 057 BPM Atrial Rate : 057 BPM P-R Int : 156 ms QRS Dur : 094 ms QT Int : 400 ms P-R-T Axes : 060 009 028 degrees QTc Int : 389 ms Sinus bradycardia Nonspecific T wave abnormality Abnormal ECG When compared with ECG of 15-JUN-2020 16:35, QT has shortened Confirmed by Willie Freitas ([id number]) on 06/17/2020 3:29:36 PM Referred By: REFERRED SELF Confirmed By:Anthony Freitas
[2020-06-17] MEDS: cefTRIAXone SODIUM 2,000 MG in DEXTROSE 5% 50 ML IV SCH (22:09)
--- NOTE | 2020-06-17 22:39 | Hospitalist Progress Note ---
Date of Service June 17, 2020 Assessment & Plan (1) COVID-19: COVID-19 infection/COPD exacerbation/hypoxia- Patient symptoms had been improving, and then abruptly have worsened, possibly suggesting a secondary bacterial superinfection developing Decadron 6 mg IV every morning. Ceftriaxone 2 g IV daily Azithromycin 500 mg IV daily Ventolin HFA 2 puffs 4 times daily, and every 2 hours as needed Now on room air. If remains on room air overnight, will obtain 2 step and discharge patient in AM. Continue theophylline 3 mg p.o. twice daily check a theophylline level. Elevated D-dimer, has increased from 1672 to 2000, compared to initial reading of 06/08/2020. Unable to order CT PE protocol due to decreased GFR. Currently does not appear to have Pulmonary emboli. Given no tachycardia and low requirement of oxygen. (2) COPD (chronic obstructive pulmonary disease): See above (3) Hypoxia: See above (4) Diabetes: Hold sitagliptin. Placed in Accu-Cheks before meals and at bedtime with NovoLog coverage per scale (5) Depression: Continue sertraline 100 mg daily (6) Hypertension: Continue carvedilol 6.25 mg p.o. twice daily (7) Chronic renal failure, stage 3 (moderate): Creatinine 2.16, with range 1.77-2.16. Follow serially Admission and Anticipated Discharge Date Admission Date: June 15, 2020 Subjective Patient reports feeling much better. Patient is tolerating room air. Review of Systems Review of Systems: All systems reviewed & are unremarkable except as noted in HPI & below Physical Exam Physical Exam: The patient is awake, alert and oriented 3, looks fatigued, normocephalic and atraumatic, lying in bed and in no acute distress. HEENT--PERRL, EOMI, mucous membranes and oropharynx dry. Neck--supple. No JVD. No bruits. Thyroid normal, trachea midline, no adenopathy. Heart--normal S1 and S2. No murmurs, rubs or gallops. Lungs--clear bilaterally, no respiratory distress, no accessory muscle use. Abdomen--normal bowel sounds and soft. Nontender. Nondistended. Extremities--no cyanosis or clubbing. No edema. Dermatologic--normal skin turgor, normal color, no abnormal lymph nodes, no rash. Neurologic--cranial nerves II through XII grossly intact. Rheumatologic--normal range of motion. Psychiatric--normal affect. Results & Data Results & Data ([facility]) Vital Signs (Past 12 Hours) Vital Signs Temp Pulse Pulse Resp BP Pulse Ox 06/17/20 19:44 36.8 C 66 18 118/62 95 06/17/20 19:19 65 16 95 06/17/20 17:10 37.1 C 77 18 129/76 95 06/17/20 16:00 86 06/17/20 14:59 80 20 95 06/17/20 12:14 36.9 C 57 L 18 113/66 94 06/17/20 11:25 80 18 96 PG Care Time/CCT Total # of Minutes Spent Total Time Spent with Patient: Total time spent is greater than 50% in coordination of care (as documented) at patient's floor/unit and/or counseling patient: Coding Level of Care Code 75115 Subseq Hosp Care Lvl 2 Diagnoses COVID-19 U07.1 COPD (chronic obstructive pulmonary disease) J44.9 Hypoxia R09.02 Diabetes E11.9 Depression F32.9 Hypertension I10 Chronic renal failure, stage 3 (moderate) N18.3 Time Spent (min) 25
[2020-06-18] MEDS: LEVOTHYROXINE SODIUM 50 MCG TABLET PO SCH (06:04)
[2020-06-18 07:45] LABS: Basophils # (auto) 0.02 K/uL (0-0.2); Basophils % (auto) 0.3 %; Eosinophils # (auto) 0.22 K/uL (0-0.5); Eosinophils % (auto) 3.8 %; Hematocrit (blood only) 30.6 % (37-47); Immature Granulocytes # (auto) 0.01 K/uL (0.00-0.02); Immature Granulocytes % (auto) 0.2 %; Lymphocytes # (auto) 1.66 K/uL (1.2-3.4); Lymphocytes % (auto) 28.7 %; Mean Corpuscular Hemoglobin 29.5 pg (25-34); Mean Corpuscular Hgb Conc 32.7 g/dL (32-36); Mean Corpuscular Volume 90.3 fL (80-100); Mean Platelet Volume 10.8 fL (7.4-10.4); Monocytes # (auto) 0.51 K/uL (0.11-0.59); Monocytes % (auto) 8.8 %; Neutrophils # (auto) 3.37 K/uL (1.4-6.5); Neutrophils % (auto) 58.2 %; Platelet Count 148 K/uL (130-400); RDW Standard Deviation 56.2 fL (36.4-46.3); Red Blood Count 3.39 M/uL (4.2-5.4); White Blood Count 5.79 K/uL (4.8-10.8)
[2020-06-18 07:53] LABS: INR 1.1 (0.9-1.1); Partial Thromboplastin Ratio 0.9; Partial Thromboplastin Time 25.4 Seconds (21.0-31.0); Prothrombin Time 11.3 Seconds (9.0-12.0)
[2020-06-18 08:10] LABS: Albumin Level 3.2 gm/dl (3.4-5.0); BUN Creatinine Ratio 20.8 (10-20); Calcium 9.2 mg/dl (8.5-10.1); Creatinine Clr Calc Pharmacy 27.6 ml/min; Est GFR (African American) 28.6; Est GFR (Non-African American) 24.7; Magnesium 2.3 mg/dl (1.8-2.4); Potassium 3.9 mmol/L (3.5-5.1)
[2020-06-18 08:13] LABS: Bilirubin,Total 0.4 mg/dl (0.2-1); Globulin 3.2 gm/dl (2.5-4.0); Total Protein 6.4 gm/dl (6.4-8.2)
[2020-06-18] MEDS: dexAMETHasone 6 MG in SYRINGE 0 ML IV SCH (08:14)
[2020-06-18] MEDS: AZITHROMYCIN 500 MG in DEXTROSE 5% 250 ML IV SCH (08:14)
[2020-06-18] MEDS: ENOXAPARIN INJ 60 MG/0.6 ML SYR SQ SCH (08:15)
[2020-06-18] MEDS: carvediloL 6.25 MG TAB PO SCH (08:15)
[2020-06-18] MEDS: FOLIC ACID 1 MG TAB PO SCH (08:15)
[2020-06-18] MEDS: THEOPHYLLINE 300MG EXTENDED REL TAB PO SCH (08:15)
[2020-06-18] MEDS: SERTRALINE HCL 100 MG TABLET PO SCH (08:15)
[2020-06-18] MEDS: INSULIN ASPART 100 UNITS/ML 3 ML PEN SC SCH ×2 (08:25→12:12)
[2020-06-18] MEDS: INSULIN GLARGINE SOLOSTAR 100 UNITS/ML 3 ML PEN SC SCH (08:26)
[2020-06-18] MEDS: ALBUTEROL HFA 8 GM INHALER INH SCH ×2 (08:52→11:51)
[2020-06-18] MEDS ORDERED: ALBUTEROL HFA 8 GM INHALER INH PRN (11:07)
--- NOTE | 2020-06-24 11:18 | Discharge Summary ---
Date of Service June 18, 2020 Admission HPI Per Admitting Provider The patient is a 34-year-old female with a past medical history including hypothyroidism, elevated LFTs, UTI, neutropenic fever, acute renal failure, pancytopenia, history of right knee surgery, CKD stage III, hypertension, depression, COPD, diabetes mellitus, arthritis, lung cancer, and COVID-19 diagnosed on 06/08/2020. In addition to the worsening shortness of breath that began this morning, she also had 5 nonbloody small-volume loose stools since this morning. She reports dyspnea on exertion with relatively short distances. She does have history of COPD and lung cancer, and is on theophylline, Combivent and albuterol nebulizers. Principal Diagnosis COVID-19 Discharge Exam The patient is awake, alert and oriented 3, looks fatigued, normocephalic and atraumatic, lying in bed and in no acute distress. HEENT--PERRL, EOMI, mucous membranes and oropharynx dry. Neck--supple. No JVD. No bruits. Thyroid normal, trachea midline, no adenopathy. Heart--normal S1 and S2. No murmurs, rubs or gallops. Lungs--clear bilaterally, no respiratory distress, no accessory muscle use. Abdomen--normal bowel sounds and soft. Nontender. Nondistended. Extremities--no cyanosis or clubbing. No edema. Dermatologic--normal skin turgor, normal color, no abnormal lymph nodes, no rash. Neurologic--cranial nerves II through XII grossly intact. Rheumatologic--normal range of motion. Psychiatric--normal affect. Discharge Data Allergies Allergy/AdvReac Type Severity Reaction Status Date / Time adhesive Allergy Unknown PULLS SKIN Verified 06/15/20 18:33 OFF Penicillins Allergy Unknown TONGUE Verified 06/15/20 18:33 SWELLING azithromycin AdvReac Nausea Verified 06/15/20 18:33 Consultations 06/15/20 19:27 ED Decision to Admit Stat 06/15/20 22:08 Consult Case Management - Discharge Planning Routine Hospital Course (1) COVID-19: COVID-19 infection/COPD exacerbation/hypoxia- Patient symptoms had been improving, and then abruptly have worsened, possibly suggesting a secondary bacterial superinfection developing Decadron 6 mg IV every morning. Ceftriaxone 2 g IV daily Azithromycin 500 mg IV daily Ventolin HFA 2 puffs 4 times daily, and every 2 hours as needed Now on room air. Elevated D-dimer, has increased from 1672 to 2000, compared to initial reading of 06/08/2020. Unable to order CT PE protocol due to decreased GFR. Currently does not appear to have Pulmonary emboli. Given no tachycardia and low requirement of oxygen. Patient did not require oxygen at rest on ambulation on day of discharge. (Possible) Bacterial pneumonia/pneumonitis will remain on antibiotics for now. may due short course. will discharge on azithromycin. (2) COPD (chronic obstructive pulmonary disease): See above (3) Hypoxia: See above (4) Diabetes: Hold sitagliptin. Placed in Accu-Cheks before meals and at bedtime with NovoLog coverage per scale (5) Depression: Continue sertraline 100 mg daily (6) Hypertension: Continue carvedilol 6.25 mg p.o. twice daily (7) Chronic renal failure, stage 3 (moderate): Creatinine 2.16, with range 1.77-2.16. Total Time Total Time Spent Total Time Spent (In Minutes): 32 Total Time Includes: Examination of the Patient, Discharge Planning and Medication Reconciliation Discharge Plan Discharge Items Patient Disposition: Home - Self-Care Reason For Visit: COVID-19 INFECTION,HYPOXIA Discharge Diagnosis: COVID 19 infection Activity: As commented below Activity Comment: quarantine for 14 days from first day of symptoms Non-emergency contact: Primary Care Provider Call non-emergency contact if: you have any medication questions Follow-up/Referrals: Arthur Cruz [Primary Care Provider] - 06/24/20 10:30 am (You have a telemed appt, with Ara on TuesdayJun.24 at 1030. The office will call you on Tuesday, please make sure you ask them for all the information needed to have your appt. It is important that you keep this appt. If it does not fit into your schedule, please talk to them on Tuesday. ) Diet: Carb Consistent or DM2 Addtl Attending Provider Instructions: Coronavirus disease 2019 (COVID-19) is a virus that causes a respiratory illness. It is caused by a coronavirus called 2019 novel coronavirus (2019- nCoV). There are many types of coronavirus. Coronaviruses are a very common cause of bronchitis. They may sometimes cause lung infection(pneumonia). Symptoms can range from mild to severe respiratory illness. These viruses are also foundin some animals. COVID-19 was first found in people in [facility], in late 2019. In 2020, several cases of COVID-19 have been confirmed in the [place] Public health officials are working to find the source. How the virus spreads is not yet fully known. It may be spread through droplets of fluid that a person coughs or sneezes into the air. It may be spread if you touch a surface with virus on it, such as a handle or object, and then touch your mouth. What are the symptoms of COVID-19? Some people have no symptoms or mild symptoms. Symptoms may appear 2 to 14 days after contact with the virus. Symptoms can include: Fever Coughing Trouble breathing What are possible complications from COVID-19? In many cases, this virus can cause infection (pneumonia) in both lungs. In some cases, this can cause . How is COVID-19 diagnosed? Your healthcare provider will ask about your symptoms. He or she will also ask about your recent travel and contact with sick people. Testing for the virus is only done through the CDC. If yourhealthcare provider thinks you may have COVID- 19, he or she will work with your local health department and the CDC on testing. Follow all instructions from your healthcare provider. COVID-19 is diagnosed by: Nasal and throat swab. A cotton-tipped swab is wiped inside your nose or throat. This is done to check for viruses in your nasal mucus. Sputum culture. A small sample of mucus coughed from your lungs (sputum) is collected if you have a cough. It is checked for the virus. How is COVID-19 treated? There is currently no medicine to treat the virus. Treatment is done to help your body while it fights the virus. This is known as supportive care. Supportive care may include: Pain medicine. These include acetaminophen and ibuprofen. They are used to help ease pain and reduce fever. Bed rest. This helps your body fight the illness. For severe illness, you may need to stay in the hospital. Care during severe illness may include: IV (intravenous) fluids.These are given through a vein to help keep your body hydrated. Oxygen. Supplemental oxygen or ventilation with a breathing machine (ventilator) may be given. This is done to keep enough oxygen in your body. Are you at risk for COVID-19? If youve been to a place where people have been sick with this virus, you are at risk for infection. You are at risk if you: Recently traveled to an affected area Had contact with a sick person who recently traveled to this area Had contact with a person who was diagnosed with COVID-19 How can COVID-19 be prevented? There is no vaccine yet. The best prevention is to not have contact with the virus. The CDC advises that people should not travel to areas where there are C OVID-19 outbreaks right now for any reason that is not urgent. To help prevent spreading the infection, wash your hands often, or use an alcohol-basedhand typecasting machine operator. If you are in an area with COVID-19: Wash your hands often. Or use an alcohol-based hand typecasting machine operator often. Only touch your eyes, nose, or mouth with clean hands. Dont have contact with people who are sick. Follow local instructions about being in public. For example, you may be told to not use public transport for a period of time. Stay away from markets that have live or animals. Wash your hands after touching any animals. Don't touch animals that may be sick. Dont share eating or drinking tools with sick people. Dont kiss someone who is sick. Clean surfaces often with disinfectant. If you were in an area with COVID-19 in the last 14 days: Call your healthcare provider. He or she can talk with local health staff to see what action may be needed. Follow all instructions from your provider. Take your temperature every morning and evening for at least 14 days. This is to check for fever. Keep a record of the readings. Keep watch for symptoms of the virus. Tell your provider right away if you have symptoms. If you were in an area with COVID-19 and have a fever or other symptoms: Dont panic. Keep in mind that other illnesses can cause similar symptoms. Stay away from work, school, and public places. Limit physical contact with family members. Don't kiss anyone or share eating or drinking utensils. Clean surfaces you touch with disinfectant. This is to help prevent the virus from spreading. Call your healthcare provider. Explain that you have been exposed to COVID-19 and have symptoms. Do this before going to any hospital. Wait for instructions. Keep in mind that healthcare staff may wear protective equipment such as masks, gowns, gloves, and eye protection. You may be put in a separate room. This is to prevent the possible virus from spreading. Tell the healthcare staff about recent travel. This includes local travel on public transport. Staff may need to find other people you have been in contact with. Follow all instructions the healthcare staff give you. If you have been diagnosed with COVID-19 Follow all instructions from your healthcare provider. Dont leave your home, except to get medical care. Call your healthcare providers office before going. They can prepare and give you instructions. This will help prevent the virus from spreading. Dont go to work, school, or public areas. Dont use public transport or taxis. Stay away from other people in your home. Have them wear face masks around you. Dont share household items or food. Wear a face mask if you can. This includes at home or in a medical facility. Cover your face with a tissue when you cough or sneeze. Throw the tissue away. Wash your hands. Wash your hands often. Caregivers should: Follow all instructions from healthcare staff. Wear a face mask and protective clothing as advised. Wash hands often. Keep track of the sick persons symptoms. Clean surfaces, fabrics, and laundry thoroughly. Keep other people away from the sick person. When to call your healthcare provider Call your healthcare provider: If youve recently traveled and have symptoms If you have been diagnosed with COVID-19 and your symptoms are worse To learn more To find out more about COVID-19, visit the CDC website at www.cdc.gov/coronavirus/2019-ncov/index.html. [employer]. [address] [place], [place] [address]. All rights reserved. This information is not intended as a substitute for professional medical care. Always follow your healthcare professional's instructions. This information has been adapted from [employer] Pending Studies at Discharge: No Stand-Alone Forms: My [facility] [employer], Smoking Cessation Medications and DC Order Prescriptions: New azithromycin 250 mg tablet 250 mg PO DAILY Qty: 1 RF: 0 dexamethasone 6 mg tablet 6 mg PO DAILY Qty: 6 RF: 0 Continued carvedilol 6.25 mg tablet 6.25 mg PO BID RF: 0 albuterol sulfate 2.5 mg /3 mL (0.083 %) solution for nebulization 2.5 mg Inhalation Q4H PRN (Reason: Shortness Of Breath Or Wheezing) RF: 0 sertraline 100 mg tablet 100 mg PO QAM RF: 0 hydrocodone-acetaminophen 10-325 mg tablet 1 tab PO BID PRN (Reason: Pain) RF: 0 theophylline 300 mg tablet extended release 12 hr 300 mg PO BID RF: 0 folic acid 1 mg tablet 1 mg PO QAM RF: 0 sitagliptin 50 mg tablet 50 mg PO QAM RF: 0 Combivent Respimat 20-100 mcg/actuation Mist 1 puff INHALATION Q4H PRN (Reason: Shortness Of Breath Or Wheezing) RF: 0 levothyroxine 50 mcg tablet 50 mcg PO DAILY RF: 0 Discharge Orders: Discharge Order (Routine); Ordered 06/18/20 Ordered By: Sin Rodriguez Admission Data Admit Date/Time: 06/15/20 21:09 Attending Provider: Sin Rodriguez Admit Provider: Tramaine Connor Primary Care Provider: Arthur Cruz Other Providers: Tramaine Connor Other Interventions: Discharge Summary Assessment (RN) Last Done: 06/18/20 12:21 Coding Level of Care Code D/C Day Management >30 mins Diagnoses COVID-19 U07.1 COPD (chronic obstructive pulmonary disease) J44.9 Hypoxia R09.02 Diabetes E11.9 Depression F32.9 Hypertension I10 Chronic renal failure, stage 3 (moderate) N18.3
== END 2020-06-18 13:40 | disposition home or self-care (01) | DRG 177 ==
LOC: ED 16:02 → 2W 21:09 → SUATTDRO 21:09 → 2W 21:42

== ENCOUNTER 2020-07-17 12:43 | Inpatient (IN) ==
[2020-07-17] MEDS ORDERED: SODIUM CHLORIDE 0.9% 1000ML 1,000 ML IV SCH ×2 (13:30)
--- NOTE | 2020-07-17 13:52 | XRay Report ---
SINGLE VIEW CHEST CLINICAL HISTORY: Generalized weakness. Lung cancer. FINDINGS: An AP, portable, upright chest radiograph is compared to study dated 06/28/2020 and correla shannon with chest CT dated 05/20/2020. The examination is degraded by portable technique and patient rota tion. The heart is enlarged noting atherosclerotic calcification of the thoracic aorta. The pulmonary vasculature is noncongested. Chronic interstitial thickening is similar to previous. There is bibasi lar scarring/atelectasis. No airspace consolidation or large pleural effusion is identified. Nodular opacities in the suprahilar right lung were better assessed on the recent chest CT. No pneumothorax i s seen. The skeletal structures are osteopenic. The bony thorax is grossly intact. IMPRESSION: 1. Cardiomegaly with no acute cardiopulmonary abnormality. 2. Right suprahilar nodular densities were better assessed on the recent chest CT.. ACT 112: Negative or not required by law. Electronically signed by: Jaxon Felipe M.D. 07/17/2020 1:50 PM
[2020-07-17 14:01] LABS: Basophils # (auto) 0.02 K/uL (0-0.2); Basophils % (auto) 0.4 %; Eosinophils # (auto) 0.53 K/uL (0-0.5); Eosinophils % (auto) 9.9 %; Hematocrit (blood only) 35.7 % (37-47); Hemoglobin 11.8 g/dL (12.0-16.0); Immature Granulocytes # (auto) 0.02 K/uL (0.00-0.02); Immature Granulocytes % (auto) 0.4 %; Lymphocytes # (auto) 2.03 K/uL (1.2-3.4); Lymphocytes % (auto) 37.7 %; Mean Corpuscular Hemoglobin 29.6 pg (25-34); Mean Corpuscular Hgb Conc 33.1 g/dL (32-36); Mean Corpuscular Volume 89.7 fL (80-100); Mean Platelet Volume 11.2 fL (7.4-10.4); Monocytes % (auto) 5.6 %; Neutrophils # (auto) 2.48 K/uL (1.4-6.5); Platelet Count 147 K/uL (130-400); RDW Coefficient of Variation 17.2 % (11.5-14.5); RDW Standard Deviation 56.7 fL (36.4-46.3); Red Blood Count 3.98 M/uL (4.2-5.4); White Blood Count 5.38 K/uL (4.8-10.8)
[2020-07-17] MEDS ORDERED: ONDANSETRON INJ 2 MG/ML 2 ML VIAL IV STA (14:03)
[2020-07-17 14:17] LABS: Alanine Aminotransferase 19 U/L (12-78); Albumin Level 3.5 gm/dl (3.4-5.0); Aspartate Aminotransferase 18 U/L (15-37); BUN Creatinine Ratio 7.4 (10-20); Blood Urea Nitrogen 19 mg/dl (7-18); Calcium 9.1 mg/dl (8.5-10.1); Carbon Dioxide 27 mmol/L (21-32); Chloride 104 mmol/L (98-107); Est GFR (African American) 20.9; Glucose 164 mg/dl (70-99); Magnesium 1.9 mg/dl (1.8-2.4); Potassium 3.8 mmol/L (3.5-5.1); Sodium 138 mmol/L (136-145)
[2020-07-17 14:28] LABS: Albumin Globulin Ratio 0.9 (0.9-2); Alkaline Phosphatase 80 U/L (45-117); Bilirubin,Total 0.9 mg/dl (0.2-1); Globulin 3.8 gm/dl (2.5-4.0); Total Protein 7.3 gm/dl (6.4-8.2); Troponin I < 0.015 ng/ml (0-0.045)
[2020-07-17 14:44] LABS: T4 Free Thyroxine 0.73 ng/dl (0.8-1.6)
[2020-07-17 14:47] LABS: D Dimer 1360 ug/L FEU (0-500)
--- NOTE | 2020-07-17 15:16 | CT Scan Report ---
CT SCAN OF THE ABDOMEN AND PELVIS WITHOUT IV CONTRAST CLINICAL HISTORY: Vomiting. COMPARISON STUDY: Abdominal CT dated 05/20/2020. TECHNIQUE: CT scan of the abdomen and pelvis is performed from the lung bases to the proximal femora. Images are reviewed in the axial, sagittal, and coronal planes. IV contrast was not administered for this examination. Note that the examination was performed in suboptimal fashion without oral and IV contrast. A dose lowering technique was utilized adhering to the principles of ALARA. CT DOSE: 999.86 mGycm FINDINGS: Lung bases: The heart is normal in size and without pericardial effusion. The coronary arteries are d ensely calcified. There is a small hiatal hernia. The lung bases are clear noting bibasilar scarring/ atelectasis. Liver: The unenhanced liver is enlarged, measuring 20.8 cm in length. The liver is otherwise normal i n contour and attenuation. There is no intrahepatic biliary ductal dilatation. Gallbladder: Surgically absent noting clips in the gallbladder fossa. Spleen: Normal in size and attenuation. Pancreas: The unenhanced pancreas is moderately atrophic and grossly unremarkable. Adrenal glands: A 2.1 cm left adrenal adenoma is unchanged. The right adrenal gland is normal as imag ed. Kidneys: The unenhanced kidneys are atrophic and without hydronephrosis. There are no renal calculi i dentified. Simple and hyperdense renal cysts measure up to 1.9 cm. Abdominal vasculature: There is advanced atherosclerotic calcification and mild ectasia of the abdomi nal aorta. Bowel: There is advanced colonic diverticulosis without CT evidence of acute diverticulitis. No bowel obstruction is seen. The appendix is not identified and reported surgically absent. Peritoneum: There is no intraperitoneal free air or abdominal ascites. Lymphadenopathy: None. Pelvic viscera: The bladder is partially decompressed and grossly unremarkable. The uterus is surgica lly absent. No adnexal lesion is seen. Skeletal structures: The skeletal structures are osteopenic. There is mild lumbosacral spondylosis. N o lytic or blastic lesions are seen. IMPRESSION: 1. There are no acute infectious or inflammatory findings in the abdomen or pelvis. 2. Advanced colonic diverticulosis without CT evidence of acute diverticulitis. 3. Hepatomegaly. 4. Advanced coronary artery calcification. 5. Additional findings as above. ACT 112: Negative or not required by law. Electronically signed by: Jaxon Felipe M.D. 07/17/2020 3:15 PM
[2020-07-17] MEDS ORDERED: ALBUT/IPRATROP 3MG/0.5MG NEB 3 ML VIAL NEB STA (15:50)
[2020-07-17] MEDS ORDERED: methylPREDNISolone 125 MG/2 ML VIAL IV STA (15:50)
--- NOTE | 2020-07-17 17:27 | History & Physical Report ---
Date of Service July 17, 2020 Assessment & Plan (1) COVID-19: History of COVID-19 infection/COPD- Initial diagnosis on 06/08/2020, with admission treatment on 06/15-06/18 for COVID-19. Will need stress dose steroids, hydrocortisone 100 mg IV every 8 hours. Check a theophylline level for toxicity, and hold dosing until verified Nasal cannula oxygen, titrate to keep pulse ox 94 to 95%. Continue Combivent Respimat 1 inhalation every 4 hours as needed Present on Admission?: Yes (2) Hypothyroidism (acquired): Patient with progressive hypothyroidism over the past few months, with TSH today 55.80. She insists that she has been taking her levothyroxine 75 mcg daily as directed. Concerned that her symptoms of nausea, vomiting, severe generalized fatigue and lethargy may be associated. Question if she may have a form of viral thyroiditis secondary to COVID-19. Add free T3 to current labs Increase levothyroxine from 75 to 150 mcg daily, and add liothyronine 10 mcg p.o. daily in the short-term. Present on Admission?: Yes (3) Weakness: Secondary to undercorrected thyroid and residual COVID-19 infection. Check a random cortisol level. As noted above: Hydrocortisone 100 mg IV every 8 hours for stress dosing Check a vitamin B12 level and folic acid level. Present on Admission?: Yes (4) Acute kidney injury superimposed on chronic kidney disease: Creatinine 2.52 upon admission, with range 1.89-2.16 She has received 1 L normal saline and will continue her 25 mils per hour Repeat laboratories every morning Present on Admission?: Yes (5) Depression: Continue sertraline Present on Admission?: Yes (6) Hypertension: Hold all antihypertensives due to relative hypotension Present on Admission?: Yes (7) COPD (chronic obstructive pulmonary disease): See above Present on Admission?: Yes (8) Diabetes: Hold sitagliptin. Place on Accu-Cheks before meals and at bedtime with NovoLog coverage per scale Present on Admission?: Yes History of Present Illness Chief Complaint: The patient presents to the emergency department with complaint of worsening generalized weakness, and intermittent nausea and vomiting. Primary Care Provider: Arthur Cruz The patient is a 74-year-old female with a past medical history including hypothyroidism, elevated LFTs, UTI, neutropenic fever, acute renal failure, pancytopenia, history of right knee surgery, CKD stage III, hypertension, depression, COPD, diabetes mellitus, arthritis, lung cancer and COVID-19 diagnosed on 06/08/2020. She was hospitalized from 06/15-06/18 and then discharged to home. Since that time she has become progressively more fatigued, and has had intermittent nausea and vomiting. Allergies Allergy/AdvReac Type Severity Reaction Status Date / Time adhesive Allergy Unknown PULLS SKIN Verified 07/17/20 14:51 OFF Penicillins Allergy Unknown TONGUE Verified 07/17/20 14:51 SWELLING azithromycin AdvReac Unknown Nausea Verified 07/17/20 14:51 Home Medications Medication Instructions Recorded Confirmed Type Combivent Respimat 1 puff INHALATION Q4H PRN 07/17/18 07/17/20 History carvedilol 6.25 mg PO BID 07/17/18 07/17/20 History folic acid 1 mg PO QAM 07/17/18 07/17/20 History hydrocodone-acetaminophen 1 tab PO BID PRN 07/17/18 07/17/20 History sertraline 100 mg PO QAM 07/17/18 07/17/20 History sitagliptin 50 mg PO QAM 07/17/18 07/17/20 History theophylline 300 mg PO BID 07/17/18 07/17/20 History esomeprazole magnesium 20 mg PO HS 06/28/20 07/17/20 History furosemide 20 mg PO DAILY PRN 06/28/20 07/17/20 History ondansetron HCl [Zofran] 4 mg PO Q6H PRN #6 tab 06/28/20 07/17/20 Rx levothyroxine 75 mcg PO QAM 07/17/20 07/17/20 History Past Med/Surg History Medical History (Updated 07/17/20 @ 17:40 by Tramaine Connor MD) Arthritis Chronic renal failure, stage 3 (moderate) COPD (chronic obstructive pulmonary disease) Depression Diabetes Hypothyroidism (acquired) Lung cancer Neutropenic fever Orthostatic hypotension Right knee DJD Surgical History Hx of right knee surgery Family History Other Diabetes Heart disease Hypertension Lung disease Social History Smoking Status: Current some day smoker Tobacco Type: Cigarettes Second Hand Exposure: No; Hx Alcohol Use: No Hx Substance Use: No Preferred Language: [place] Communication Ability: Effective [employer] Representative Required: No Beliefs That Will Affect Care: None marital status: / Current Living Situation: [facility] How many Children do You have: 3 Feels Safe at Home: Yes Assistive Devices: None Review of Systems Review of Systems: The patient denies chest pain, palpitations, cough, lower extremity swelling, sore throat, fevers, chills, sweats, diarrhea , constipation, abdominal pain, pelvic pain, blood in urine or stool, dysuria, urinary frequency or urgency, headache, memory loss, loss of consciousness, rash, abnormal bruising or bleeding, focal weakness, numbness or tingling in arms or legs, back or neck pain, or night sweats. The review of systems is otherwise negative other than for that already noted above, and at least 10 systems have been reviewed. Physical Exam Physical Exam: The patient is awake, alert and oriented 3, well developed and well nourished, normocephalic and atraumatic, lying in bed and in no acute distress. HEENT--PERRL, EOMI, mucous membranes and oropharynx dry. Neck--supple. No JVD. No bruits. Thyroid normal, trachea midline, no adenopathy. Heart--normal S1 and S2. No murmurs, rubs or gallops. Lungs--clear bilaterally, no respiratory distress, no accessory muscle use. Abdomen--normal bowel sounds and soft. Nontender. Nondistended. Extremities--no cyanosis or clubbing. No edema. Dermatologic--normal skin turgor, normal color, no abnormal lymph nodes, no rash. Neurologic--cranial nerves II through XII grossly intact. Rheumatologic--normal range of motion. Psychiatric--normal affect. Results & Data Results & Data ([facility]) Vital Signs (Past 12 Hours) Vital Signs Temp Pulse Pulse Resp BP Pulse Ox 07/17/20 16:09 73 16 94 07/17/20 15:05 74 29 H 93 07/17/20 14:03 73 20 94 07/17/20 12:47 97.0 F L 78 20 103/65 95 Laboratory Results Laboratory Results WBC 5.38 K/uL (4.8-10.8) 07/17/20 13:45 RBC 3.98 M/uL (4.2-5.4) L 07/17/20 13:45 Hgb 11.8 g/dL (12.0-16.0) L 07/17/20 13:45 Hct 35.7 % (37-47) L 07/17/20 13:45 MCV 89.7 fL (80-100) 07/17/20 13:45 MCH 29.6 pg (25-34) 07/17/20 13:45 MCHC 33.1 g/dL (32-36) 07/17/20 13:45 RDW Std Deviation 56.7 fL (36.4-46.3) H 07/17/20 13:45 RDW Coeff of Maye 17.2 % (11.5-14.5) H 07/17/20 13:45 Plt Count 147 K/uL (130-400) 07/17/20 13:45 MPV 11.2 fL (7.4-10.4) H 07/17/20 13:45 Immature Gran % (Auto) 0.4 % 07/17/20 13:45 Neut % (Auto) 46.0 % 07/17/20 13:45 Lymph % (Auto) 37.7 % 07/17/20 13:45 [place] % (Auto) 5.6 % 07/17/20 13:45 Eos % (Auto) 9.9 % 07/17/20 13:45 Baso % (Auto) 0.4 % 07/17/20 13:45 Neut # (Auto) 2.48 K/uL (1.4-6.5) 07/17/20 13:45 Lymph # (Auto) 2.03 K/uL (1.2-3.4) 07/17/20 13:45 [place] # (Auto) 0.30 K/uL (0.11-0.59) 07/17/20 13:45 Eos # (Auto) 0.53 K/uL (0-0.5) H 07/17/20 13:45 Baso # (Auto) 0.02 K/uL (0-0.2) 07/17/20 13:45 Immature Gran # (Auto) 0.02 K/uL (0.00-0.02) 07/17/20 13:45 D-Dimer 1360 ug/L FEU (0-500) H* 07/17/20 13:45 Sodium 138 mmol/L (136-145) 07/17/20 13:45 Potassium 3.8 mmol/L (3.5-5.1) 07/17/20 13:45 Chloride 104 mmol/L (98-107) 07/17/20 13:45 Carbon Dioxide 27 mmol/L (21-32) 07/17/20 13:45 Anion Gap 7.0 (3-11) 07/17/20 13:45 BUN 19 mg/dl (7-18) H 07/17/20 13:45 Creatinine 2.52 mg/dl (0.6-1.2) H 07/17/20 13:45 Est Cr Clr Drug Dosing Not Reportable 07/17/20 13:45 Est GFR ( Amer) 20.9 07/17/20 13:45 Est GFR (Non-Af Amer) 18.0 07/17/20 13:45 BUN/Creatinine Ratio 7.4 (10-20) L 07/17/20 13:45 Glucose 164 mg/dl (70-99) H 07/17/20 13:45 Calcium 9.1 mg/dl (8.5-10.1) 07/17/20 13:45 Magnesium 1.9 mg/dl (1.8-2.4) 07/17/20 13:45 Total Bilirubin 0.9 mg/dl (0.2-1) 07/17/20 13:45 AST 18 U/L (15-37) 07/17/20 13:45 ALT 19 U/L (12-78) 07/17/20 13:45 Alkaline Phosphatase 80 U/L (45-117) 07/17/20 13:45 Troponin I < 0.015 ng/ml (0-0.045) 07/17/20 13:45 Total Protein 7.3 gm/dl (6.4-8.2) 07/17/20 13:45 Albumin 3.5 gm/dl (3.4-5.0) 07/17/20 13:45 Globulin 3.8 gm/dl (2.5-4.0) 07/17/20 13:45 Albumin/Globulin Ratio 0.9 (0.9-2) 07/17/20 13:45 TSH 55.800 uIu/ml (0.300-4.500) H 07/17/20 13:45 Free T4 0.73 ng/dl (0.8-1.6) L 07/17/20 13:45 Free T3 2.16 pg/ml (2.3-4.2) L 07/17/20 16:51 Theophylline 17 mcg/ml (10-20) 07/17/20 16:51 Diagnostic Findings [facility], [id number] XRay Report Patient: FELISA SCHWAB Date: 07/17/20MR#: [id number]: 46 [address] DRAcct ID:[id number]: [address]Birth Date: [address] [place] [address] Zip: [place], [place] [address]Ypk: 74Location: EDSex: FRoom/Bed:Att Phy:Diagnosis: SHORT OF BREATH, WEAKNESS COVID+ - 06/06Pri Phy: Arthur Cruz M.D.Service Date: 07/17/20Fam Phy:Interpreting Phy: Jaxon Felipe MDAdmit Phy: Ordering Phy: Hugh Ellison MD cc: ~ SINGLE VIEW CHEST CLINICAL HISTORY: Generalized weakness. Lung cancer. FINDINGS: An AP, portable, upright chest radiograph is compared to study dated 06/28/2020 and correlated with chest CT dated 05/20/2020. The examination is degraded by portable technique and patient rotation. The heart is enlarged noting atherosclerotic calcification of the thoracic aorta. The pulmonary vasculature is noncongested. Chronic interstitial thickening is similar to previous. There is bibasilar scarring/atelectasis. No airspace consolidation or large pleural effusion is identified. Nodular opacities in the suprahilar right lung were better assessed on the recent chest CT. No pneumothorax is seen. The skeletal structures are osteopenic. The bony thorax is grossly intact. IMPRESSION: 1. Cardiomegaly with no acute cardiopulmonary abnormality. 2. Right suprahilar nodular densities were better assessed on the recent chest CT.. ACT 112: Negative or not required by law. Electronically signed by: Jaxon Felipe M.D. 07/17/2020 1:50 PM Dictated: 07/17/20 1350Transcribed: 07/17/20 1350 [facility], [phone] CT Scan Report Patient: FELISA SCHWAB Date: 07/17/20MR#: [id number]: 46 [address] DRAcct ID:[id number]: [address]Birth Date: [birth year]City Zip: [place], [place] [address]Clv: 74Location: EDSex: FRoom/Bed:Att Phy:Diagnosis: SHORT OF BREATH, WEAKNESS COVID+ - 06/06Pri Phy: Arthur Cruz M.D.Service Date: 07/17/20Fam Phy:Interpreting Phy: Jaxon Felipe MDAdmit Phy: Ordering Phy: Hugh Ellison MD cc: ~ CT SCAN OF THE ABDOMEN AND PELVIS WITHOUT IV CONTRAST CLINICAL HISTORY: Vomiting. COMPARISON STUDY: Abdominal CT dated 05/20/2020. TECHNIQUE: CT scan of the abdomen and pelvis is performed from the lung bases to the proximal femora. Images are reviewed in the axial, sagittal, and coronal planes. IV contrast was not administered for this examination. Note that the examination was performed in suboptimal fashion without oral and IV contrast. A dose lowering technique was utilized adhering to the principles of ALARA. CT DOSE: 999.86 mGycm FINDINGS: Lung bases: The heart is normal in size and without pericardial effusion. The coronary arteries are densely calcified. There is a small hiatal hernia. The lung bases are clear noting bibasilar scarring/atelectasis. Liver: The unenhanced liver is enlarged, measuring 20.8 cm in length. The liver is otherwise normal in contour and attenuation. There is no intrahepatic biliary ductal dilatation. Gallbladder: Surgically absent noting clips in the gallbladder fossa. Spleen: Normal in size and attenuation. Pancreas: The unenhanced pancreas is moderately atrophic and grossly unremarkable. Adrenal glands: A 2.1 cm left adrenal adenoma is unchanged. The right adrenal gland is normal as imaged. Kidneys: The unenhanced kidneys are atrophic and without hydronephrosis. There are no renal calculi identified. Simple and hyperdense renal cysts measure up to 1.9 cm. Abdominal vasculature: There is advanced atherosclerotic calcification and mild ectasia of the abdominal aorta. Bowel: There is advanced colonic diverticulosis without CT evidence of acute diverticulitis. No bowel obstruction is seen. The appendix is not identified and reported surgically absent. Peritoneum: There is no intraperitoneal free air or abdominal ascites. Lymphadenopathy: None. Pelvic viscera: The bladder is partially decompressed and grossly unremarkable. The uterus is surgically absent. No adnexal lesion is seen. Skeletal structures: The skeletal structures are osteopenic. There is mild lumbosacral spondylosis. No lytic or blastic lesions are seen. IMPRESSION: 1. There are no acute infectious or inflammatory findings in the abdomen or pelvis. 2. Advanced colonic diverticulosis without CT evidence of acute diverticulitis. 3. Hepatomegaly. 4. Advanced coronary artery calcification. 5. Additional findings as above. ACT 112: Negative or not required by law. Electronically signed by: Jaxon Felipe M.D. 07/17/2020 3:15 PM Dictated: 07/17/20 1509Transcribed: 07/17/20 1509 Code Status & VTE Plan Code Status Full code VTE Prophylaxis Plan VTE Prophylaxis will be ordered: Yes PG Care Time/CCT Total # of Minutes Spent Total Time Spent with Patient: Total time spent is greater than 50% in coordination of care (as documented) at patient's floor/unit and/or counseling patient: Coding Level of Care Code 74507 Initial Inpt Care Lvl 3 Diagnoses COVID-19 U07.1 Hypothyroidism (acquired) E03.9 Weakness R53.1 Acute kidney injury superimposed on chronic kidney disease N17.9; N18.9 Depression F32.9 Hypertension I10 COPD (chronic obstructive pulmonary disease) J44.9 Diabetes E11.9
[2020-07-17] MEDS ORDERED: GLUCOSE 10 TABS/TUBE PO PRN (17:48)
[2020-07-17] MEDS ORDERED: GLUCAGON FOR INJ 1 MG VIAL SQ PRN (17:48)
[2020-07-17] MEDS ORDERED: CARBOHYDRATES FOR HYPOGLYCEMIA PO PRN (17:48)
[2020-07-17] MEDS ORDERED: DEXTROSE 50% 50 ML SYRINGE IV PRN (17:48)
[2020-07-17] MEDS ORDERED: GLUCOSE 40% GEL 15 GM TUBE PO PRN (17:48)
--- NOTE | 2020-07-17 18:36 | Emergency Department Note ---
Impression & Plan SOB (shortness of breath), COPD (chronic obstructive pulmonary disease), Acute dehydration, CHRISTIAN (acute kidney injury), Nausea & vomiting, Hypothyroidism ED Provider Note INFORMANT: Patient ED PROVIDER(S): Hugh Ellison MD CHIEF COMPLAINT: Shortness of breath PLAN: Disposition: Admitted Condition: Good MEDICAL DECISION MAKING: Patient presented to emergency room complaining of shortness of breath. A work- up was initiated. ECG showed a nonspecific T wave changes anteriorly and inferiorly. Her chest x-ray was negative. The patient was hydrated. She was given Zofran. She did have wheezing on examination. She was given a DuoNeb as well as Solu-Medrol. Her CBC showed a mild anemia. Her troponin was negative. D-dimer was elevated. Her chemistry panel was concerning as she had CHRISTIAN with an elevated creatinine. CT PE study was deferred due to the elevated creatinine. Her TSH was markedly elevated and her free T4 was low. Given the constellation of findings and the fact the patient still feels poorly further management in the hospital was felt to be appropriate. [facility] Patient was evaluated in the ER by Dr. Connor. Triage Nursing notes reviewed and agree them. Vital Signs: reviewed and remarkable for no significant abnormalities Differential diagnosis: Reactive airway disease, pneumonia, pneumothorax, COPD, CHF, infections, cardiac ischemia, pulmonary embolism, musculoskeletal, gastrointestinal, as well as other pathologies. Diagnostics interpreted by me: ECG: Twelve-lead ECG reveals normal sinus rhythm at [address] changes anteriorly and inferiorly. No ST elevation. No PACs or PVCs. Normal QRS and axis. Cardiac Monitoring: Cardiac monitoring ordered by me: The patient was placed on continuous cardiac monitoring and observed. It revealed a normal sinus rhythm at 80 beats per minute without ectopy or evidence of dysrhythmia. Imaging studies: Chest x-ray. Findings: A chest x-ray was performed and revealed no pneumothorax, effusion, infiltrate, pulmonary edema, free air under the diaphragm, or wide mediastinum. Impression: No acute disease. CT scan of the abdomen pelvis was performed and negative for acute pathology. I refer to the EMR for further details on imaging. Consultation(s): [facility] HPI: The patient is a 74 year old female who presents to the Emergency Room with complaints of shortness of breath. This started a few weeks ago and is worsening since the last 6 days. The patient also notes the following associated symptoms, nausea and vomiting, generalized weakness, wheezing, poor appetite. The patient has found no relieving factors. Current pain is rated as 0/10. Pt denies LOC, headache, fevers, chills, diaphoresis, visual changes, neck pain, chest pain, abdominal pain, back pain, melena, hematochezia, urinary symptoms, numbness, lymphadenopathy, rash, or other complaints. ROS: See above HPI for pertinent positives & negatives. A total of 10 systems reviewed and were otherwise negative. PAST MEDICAL HISTORY:See Below, COPD, hypertension PAST SURGICAL HISTORY:See Below, FAMILY HISTORY:See Below SOCIAL HISTORY:See Below, quit smoking HOME MEDICATIONS:See Below ALLERGIES:See Below VITALS:See Below PHYSICAL EXAMINATION: GENERAL: Awake, alert, uncomfortable-appearing, in no distress HENT: Normocephalic, atraumatic. Oropharynx with dry mucous membranes EYES: Normal conjunctiva. Sclera non-icteric. NECK: Inspection normal. Non-tender. Supple. No nuchal rigidity. FROM. No masses. RESPIRATORY: Bilateral wheezes. No rales. Increased respiratory effort. CARDIAC: Normal rate. Normal rhythm. No murmurs. No rubs. Extremities warm and well perfused. Pulses equal. No JVD. GI: Soft, non-distended. No tenderness to palpation. No rebound or guarding. No masses. RECTAL: Deferred. MUSCULOSKELETAL: Atraumatic. Chest examination reveals no tenderness. The back is symmetrical on inspection without obvious abnormality. There is no CVA tenderness to palpation. No joint edema. LOWER EXTREMITIES: Calves are equal size bilaterally and non-tender. No edema. No discoloration. NEURO: Normal sensorium. No sensory or motor deficits noted. SKIN: No rash or jaundice noted. Hugh Ellison MD Past Med/Surg History Medical History (Updated 07/17/20 @ 18:31 by Hugh Ellison MD) Arthritis Chronic renal failure, stage 3 (moderate) COPD (chronic obstructive pulmonary disease) Depression Diabetes Hypothyroidism (acquired) Lung cancer Neutropenic fever Orthostatic hypotension Right knee DJD Surgical History Hx of right knee surgery Family History Other Diabetes Heart disease Hypertension Lung disease Social History Smoking Status: Current some day smoker Tobacco Type: Cigarettes Second Hand Exposure: No; Hx Alcohol Use: No Hx Substance Use: No Preferred Language: Omani Communication Ability: Effective Associate Professor Of Biostatistics Required: No Beliefs That Will Affect Care: None marital status: / Current Living Situation: Family Current Living Situation Comment: [facility] How many Children do You have: 3 Feels Safe at Home: Yes Assistive Devices: None Allergies Allergies Allergy/AdvReac Type Severity Reaction Status Date / Time adhesive Allergy Unknown PULLS SKIN Verified 07/17/20 14:51 OFF Penicillins Allergy Unknown TONGUE Verified 07/17/20 14:51 SWELLING azithromycin AdvReac Unknown Nausea Verified 07/17/20 14:51 Home Meds Home Medications Medication Instructions Recorded Confirmed Combivent Respimat 1 puff INHALATION Q4H PRN 07/17/18 07/17/20 carvedilol 6.25 mg PO BID 07/17/18 07/17/20 folic acid 1 mg PO QAM 07/17/18 07/17/20 hydrocodone-acetaminophen 1 tab PO BID PRN 07/17/18 07/17/20 sertraline 100 mg PO QAM 07/17/18 07/17/20 sitagliptin 50 mg PO QAM 07/17/18 07/17/20 theophylline 300 mg PO BID 07/17/18 07/17/20 esomeprazole magnesium 20 mg PO HS 06/28/20 07/17/20 furosemide 20 mg PO DAILY PRN 06/28/20 07/17/20 levothyroxine 75 mcg PO QAM 07/17/20 07/17/20 Previous Rx's Medication Instructions Recorded ondansetron HCl [Zofran] 4 mg PO Q6H PRN #6 tab 06/28/20 Results & Data (ED) Vital Signs Vital Signs - 24 hr 07/17/20 12:47 07/17/20 12:49 07/17/20 13:20 Temperature 36.1 C L Temperature Source Skin Pulse Rate 78 Pulse Rate [Right Radial] Pulse Rate from SpO2 Sensor Respiratory Rate 20 Respiratory Effort / Characteristics Non-Labored Spontaneous Respiratory Depth Normal Blood Pressure 103/65 Blood Pressure Mean 77 Pulse Oximetry 95 96 95 Oxygen Delivery Method Room Air Room Air Room Air Sepsis Recent Fever Within 48 Hours No Sepsis New/Unexplained Change in Mental Status N/A Sepsis Action Taken by Nursing No Action Required Oxygen Flow Rate - Titration Pulse Oximetry Post Tiitration 07/17/20 14:03 07/17/20 15:05 07/17/20 16:06 Temperature Temperature Source Pulse Rate 73 74 77 Pulse Rate [Right Radial] Pulse Rate from SpO2 Sensor 73 74 75 Respiratory Rate 20 29 H 19 Respiratory Effort / Characteristics Respiratory Depth Blood Pressure 96/59 L Blood Pressure Mean 86 Pulse Oximetry 94 93 92 Oxygen Delivery Method Room Air Sepsis Recent Fever Within 48 Hours Sepsis New/Unexplained Change in Mental Status Sepsis Action Taken by Nursing Oxygen Flow Rate - Titration Pulse Oximetry Post Tiitration 07/17/20 16:09 07/17/20 16:31 07/17/20 17:00 Temperature Temperature Source Pulse Rate 77 79 Pulse Rate [Right Radial] 73 Pulse Rate from SpO2 Sensor 76 79 Respiratory Rate 16 21 18 Respiratory Effort / Characteristics Spontaneous Respiratory Depth Blood Pressure 105/50 L 126/65 Blood Pressure Mean 68 72 Pulse Oximetry 94 91 91 Oxygen Delivery Method Room Air Sepsis Recent Fever Within 48 Hours Sepsis New/Unexplained Change in Mental Status Sepsis Action Taken by Nursing Oxygen Flow Rate - Titration Pulse Oximetry Post Tiitration 07/17/20 17:27 07/17/20 17:30 07/17/20 18:00 Temperature Temperature Source Pulse Rate 81 80 Pulse Rate [Right Radial] Pulse Rate from SpO2 Sensor 81 79 Respiratory Rate 13 22 Respiratory Effort / Characteristics Respiratory Depth Blood Pressure 112/63 126/74 Blood Pressure Mean 74 79 Pulse Oximetry 87 L 97 97 Oxygen Delivery Method Room Air Nasal Cannula Sepsis Recent Fever Within 48 Hours Sepsis New/Unexplained Change in Mental Status Sepsis Action Taken by Nursing Oxygen Flow Rate - Titration 2 Pulse Oximetry Post Tiitration 97 Laboratory Data Result diagrams: 07/17/20 13:45 07/17/20 13:45 Lab Results 07/17/20 07/17/20 07/17/20 Range/Units 13:45 13:45 13:45 WBC 5.38 (4.8-10.8) K/uL RBC 3.98 L (4.2-5.4) M/uL Hgb 11.8 L (12.0-16.0) g/dL Hct 35.7 L (37-47) % MCV 89.7 (80-100) fL MCH 29.6 (25-34) pg MCHC 33.1 (32-36) g/dL RDW Std Deviation 56.7 H (36.4-46.3) fL RDW Coeff of Maye 17.2 H (11.5-14.5) % Plt Count 147 (130-400) K/uL MPV 11.2 H (7.4-10.4) fL Immature Gran % (Auto) 0.4 % Neut % (Auto) 46.0 % Lymph % (Auto) 37.7 % [place] % (Auto) 5.6 % Eos % (Auto) 9.9 % Baso % (Auto) 0.4 % Neut # (Auto) 2.48 (1.4-6.5) K/uL Lymph # (Auto) 2.03 (1.2-3.4) K/uL [place] # (Auto) 0.30 (0.11-0.59) K/uL Eos # (Auto) 0.53 H (0-0.5) K/uL Baso # (Auto) 0.02 (0-0.2) K/uL Immature Gran # (Auto) 0.02 (0.00-0.02) K/uL D-Dimer 1360 H* (0-500) ug/L FEU Sodium 138 (136-145) mmol/L Potassium 3.8 (3.5-5.1) mmol/L Chloride 104 (98-107) mmol/L Carbon Dioxide 27 (21-32) mmol/L Anion Gap 7.0 (3-11) BUN 19 H (7-18) mg/dl Creatinine 2.52 H (0.6-1.2) mg/dl Est Cr Clr Drug Dosing Not Reportable Est GFR ( Amer) 20.9 Est GFR (Non-Af Amer) 18.0 BUN/Creatinine Ratio 7.4 L (10-20) Glucose 164 H (70-99) mg/dl Calcium 9.1 (8.5-10.1) mg/dl Magnesium 1.9 (1.8-2.4) mg/dl Total Bilirubin 0.9 (0.2-1) mg/dl AST 18 (15-37) U/L ALT 19 (12-78) U/L Alkaline Phosphatase 80 (45-117) U/L Troponin I < 0.015 (0-0.045) ng/ml Total Protein 7.3 (6.4-8.2) gm/dl Albumin 3.5 (3.4-5.0) gm/dl Globulin 3.8 (2.5-4.0) gm/dl Albumin/Globulin Ratio 0.9 (0.9-2) TSH 55.800 H (0.300-4.500) uIu/ml Free T4 0.73 L (0.8-1.6) ng/dl Free T3 (2.3-4.2) pg/ml Random Cortisol mcg/dl Theophylline (10-20) mcg/ml 07/17/20 07/17/20 07/17/20 Range/Units 13:45 16:51 16:51 WBC (4.8-10.8) K/uL RBC (4.2-5.4) M/uL Hgb (12.0-16.0) g/dL Hct (37-47) % MCV (80-100) fL MCH (25-34) pg MCHC (32-36) g/dL RDW Std Deviation (36.4-46.3) fL RDW Coeff of Maye (11.5-14.5) % Plt Count (130-400) K/uL MPV (7.4-10.4) fL Immature Gran % (Auto) % Neut % (Auto) % Lymph % (Auto) % [place] % (Auto) % Eos % (Auto) % Baso % (Auto) % Neut # (Auto) (1.4-6.5) K/uL Lymph # (Auto) (1.2-3.4) K/uL [place] # (Auto) (0.11-0.59) K/uL Eos # (Auto) (0-0.5) K/uL Baso # (Auto) (0-0.2) K/uL Immature Gran # (Auto) (0.00-0.02) K/uL D-Dimer (0-500) ug/L FEU Sodium (136-145) mmol/L Potassium (3.5-5.1) mmol/L Chloride (98-107) mmol/L Carbon Dioxide (21-32) mmol/L Anion Gap (3-11) BUN (7-18) mg/dl Creatinine (0.6-1.2) mg/dl Est Cr Clr Drug Dosing Est GFR ( Amer) Est GFR (Non-Af Amer) BUN/Creatinine Ratio (10-20) Glucose (70-99) mg/dl Calcium (8.5-10.1) mg/dl Magnesium (1.8-2.4) mg/dl Total Bilirubin (0.2-1) mg/dl AST (15-37) U/L ALT (12-78) U/L Alkaline Phosphatase (45-117) U/L Troponin I (0-0.045) ng/ml Total Protein (6.4-8.2) gm/dl Albumin (3.4-5.0) gm/dl Globulin (2.5-4.0) gm/dl Albumin/Globulin Ratio (0.9-2) TSH (0.300-4.500) uIu/ml Free T4 (0.8-1.6) ng/dl Free T3 2.16 L (2.3-4.2) pg/ml Random Cortisol 2.38 mcg/dl Theophylline 17 (10-20) mcg/ml Administered Medications Sodium Chloride (Nss 1000ml) 1,000 mls @ 125 mls/hr IV .Q8H SIMONA Stop: 07/17/20 21:29 Last Infusion: 07/17/20 16:23 Dose: 125 mls/hr Documented by: [id number] Infusion: 07/17/20 15:23 Dose: 0 mls/hr Documented by: [id number] Admin: 07/17/20 15:22 Dose: 125 mls/hr Documented by: [id number] Discontinued Medications Albuterol (Albut/Ipratrop 3mg/0.5mg Neb 3 Ml Vial) 3 ml NEB NOW STA Stop: 07/17/20 15:51 Last Admin: 07/17/20 16:09 Dose: 3 ml Documented by: [id number] Sodium Chloride (Nss 1000ml) 1,000 mls @ 999 mls/hr IV .Q1H1M SIMONA Stop: 07/17/20 14:30 Last Infusion: 07/17/20 16:23 Dose: 0 mls/hr Documented by: [id number] Admin: 07/17/20 15:22 Dose: 999 mls/hr Documented by: [id number] Methylprednisolone (Methylprednisolone 125 Mg/2 Ml Vial) 125 mg IV NOW STA Stop: 07/17/20 15:51 Last Admin: 07/17/20 16:09 Dose: 125 mg Documented by: [id number] Ondansetron HCl (Ondansetron Inj 2 Mg/Ml 2 Ml Vial) 4 mg IV NOW STA Stop: 07/17/20 14:04 Last Admin: 07/17/20 15:23 Dose: 4 mg Documented by: [id number] Discharge Plan Visit Data Chief Complaint: Shortness of Breath/Dyspnea Stated Complaint: SHORT OF BREATH, WEAKNESS ED Provider: Hugh Ellison Discharge Problem: SOB (shortness of breath), COPD (chronic obstructive pulmonary disease), Acute dehydration, CHRISTIAN (acute kidney injury), Nausea & vomiting, Hypothyroidism Patient Disposition: Admitted As Inpatient Forms Stand Alone Forms: [facility] Prescriptions Prescriptions: No Action carvedilol 6.25 mg tablet 6.25 mg PO BID RF: 0 sertraline 100 mg tablet 100 mg PO QAM RF: 0 hydrocodone-acetaminophen 10-325 mg tablet 1 tab PO BID PRN (Reason: Pain, Severe) RF: 0 theophylline 300 mg tablet extended release 12 hr 300 mg PO BID RF: 0 folic acid 1 mg tablet 1 mg PO QAM RF: 0 sitagliptin 50 mg tablet 50 mg PO QAM RF: 0 Combivent Respimat 20-100 mcg/actuation Mist 1 puff INHALATION Q4H PRN (Reason: Shortness Of Breath Or Wheezing) RF: 0 furosemide 20 mg tablet 20 mg PO DAILY PRN (Reason: Swelling) RF: 0 esomeprazole magnesium 20 mg capsule,delayed release(DR/EC) 20 mg PO HS RF: 0 ondansetron HCl [Zofran] 4 mg tablet 4 mg PO Q6H PRN (Reason: nausea and vomiting) Qty: 6 RF: 0 levothyroxine 75 mcg tablet 75 mcg PO QAM RF: 0 Referrals Referrals: Arthur Cruz [Primary Care Provider] -
[2020-07-17] MEDS ORDERED: HYDROcodone/ACETAMINOPHEN 10/325 TAB PO PRN (18:59)
[2020-07-17] MEDS ORDERED: IPRATROPIUM BROMIDE/ALBUTEROL respimat INH INH PRN (18:59)
[2020-07-17] MEDS ORDERED: ONDANSETRON 4 MG OD TAB PO PRN (19:15)
[2020-07-17] MEDS ORDERED: Ipratropium HFA Inhaler (Combivent Respimat P&T Subs) INH PRN (19:19)
[2020-07-17] MEDS ORDERED: Albuterol HFA 8 GM Inhaler (Combivent Respimat P&T Subs) INH PRN (19:19)
[2020-07-17] MEDS ORDERED: LEVOTHYROXINE SODIUM 75 MCG TABLET PO ONE (19:30)
[2020-07-17] MEDS: THEOPHYLLINE 300MG EXTENDED REL TAB PO SCH (20:26)
[2020-07-17] MEDS: LIOTHYRONINE SODIUM 5 MCG TAB PO SCH (20:27)
[2020-07-17] MEDS: PANTOprazole 40 MG TAB PO SCH (20:27)
[2020-07-17] MEDS: INSULIN ASPART 100 UNITS/ML 3 ML PEN SC SCH (20:28)
[2020-07-17] MEDS: HYDROCORTISONE SOD 100 MG in SYRINGE 0 ML IV SCH (21:32)
[2020-07-17] MEDS: HEPARIN SOD 5,000 UNIT/0.5 ML VIAL SQ SCH (21:33)
[2020-07-17] MEDS ORDERED: HYDROCORTISONE SOD SUCCINATE 100 MG/2 ML VIAL IV SCH (22:00)
[2020-07-18] MEDS: HYDROCORTISONE SOD 100 MG in SYRINGE 0 ML IV SCH ×3 (06:08→21:52)
[2020-07-18] MEDS: LEVOTHYROXINE SODIUM 150 MCG TABLET PO SCH (06:08)
[2020-07-18] MEDS: HEPARIN SOD 5,000 UNIT/0.5 ML VIAL SQ SCH ×3 (06:10→21:52)
[2020-07-18 06:37] LABS: Appearance Urine Clear (Clear); Bacteria Urine Automated Negative (Negative); Bilirubin Urine Negative (Negative); Blood Urine Negative (Negative); Color Urine Dark Yellow; Epithelial Cell Urine Auto >30 /lpf (0-5); Glucose Urine UA Negative (Negative); Ketones Urine 1+ (Negative); Leukocyte Esterase Urine Negative (Negative); Nitrite Urine Negative (Negative); Protein Urine Trace (Negative); RBC Urine Automated 0-4 /hpf (0-4); Specific Gravity Urine 1.022 (1.000-1.030); Urobilinogen Urine Negative (Negative)
[2020-07-18 07:22] LABS: Hematocrit (blood only) 31.2 % (37-47); Hemoglobin 10.5 g/dL (12.0-16.0); Immature Granulocytes # (auto) 0.01 K/uL (0.00-0.02); Immature Granulocytes % (auto) 0.3 %; Lymphocytes # (auto) 0.44 K/uL (1.2-3.4); Lymphocytes % (auto) 12.2 %; Mean Corpuscular Hemoglobin 29.7 pg (25-34); Mean Corpuscular Hgb Conc 33.7 g/dL (32-36); Mean Corpuscular Volume 88.4 fL (80-100); Mean Platelet Volume 10.2 fL (7.4-10.4); Monocytes # (auto) 0.07 K/uL (0.11-0.59); Monocytes % (auto) 1.9 %; Neutrophils # (auto) 3.08 K/uL (1.4-6.5); Neutrophils % (auto) 85.6 %; Nucleated RBC # (auto) 0.02 K/uL (0-0); Nucleated RBC % (auto) 0.4 %; Platelet Count 144 K/uL (130-400); RDW Coefficient of Variation 17.1 % (11.5-14.5); RDW Standard Deviation 55.7 fL (36.4-46.3); Red Blood Count 3.53 M/uL (4.2-5.4)
[2020-07-18] MEDS: SERTRALINE HCL 100 MG TABLET PO SCH (07:40)
[2020-07-18] MEDS: THEOPHYLLINE 300MG EXTENDED REL TAB PO SCH ×2 (07:41→20:23)
[2020-07-18] MEDS: LIOTHYRONINE SODIUM 5 MCG TAB PO SCH (07:41)
[2020-07-18] MEDS: FOLIC ACID 1 MG TAB PO SCH (07:41)
[2020-07-18 07:56] LABS: Albumin Level 3.1 gm/dl (3.4-5.0); BUN Creatinine Ratio 8.4 (10-20); Creatinine Clr Calc Pharmacy 25.2 ml/min; Est GFR (African American) 23.4; Est GFR (Non-African American) 20.2; Potassium 3.9 mmol/L (3.5-5.1)
[2020-07-18 07:59] LABS: Albumin Globulin Ratio 0.8 (0.9-2); Bilirubin,Total 0.9 mg/dl (0.2-1); Globulin 3.8 gm/dl (2.5-4.0); Total Protein 6.9 gm/dl (6.4-8.2)
[2020-07-18] MEDS: INSULIN ASPART 100 UNITS/ML 3 ML PEN SC SCH ×4 (08:50→20:29)
[2020-07-18 09:05] LABS: Folate (Folic Acid) > 20.00 ng/ml (>5.38); Vitamin B12 524 pg/ml (193-986)
--- NOTE | 2020-07-18 09:23 | Progress Notes ---
DATE: 07/18/2020 HOSPITALIST PROGRESS NOTE DIAGNOSES: 1. History of COVID-19 infection. 2. Hypothyroidism. 3. Generalized weakness. 4. Acute renal injury superimposed on chronic kidney disease. 5. Hypertension. 6. Chronic obstructive pulmonary disease. 7. Diabetes mellitus. SUBJECTIVE: Kasie is a pleasant 74-year-old female patient, well known to [facility], with metastatic nonsmall cell lung cancer. The patient was admitted to [facility] yesterday because of generalized weakness and acquired hypothyroidism, most likely attributable to pembrolizumab. Her last pembrolizumab dose was administered on . This checkpoint inhibitor (anti-PDL-1 agent) can cause acquired hypothyroidism. Clearly, her TSH has been on the rise and closely monitored at [facility]. Her thyroid replacement therapy dose was doubled on admission. Clinically, this morning, Kasie's main concern is that of ongoing fatigue/asthenia. She is hemodynamically stable at this time and reports no fevers or chills. The patient is maintained on theophylline for COPD, currently holding her dose awaiting theophylline levels before resumption. Nursing reports no overnight difficulties and Kasie denies pain or discomfort at bedside this morning. OBJECTIVE: GENERAL: A very pleasant 74-year-old female in no acute distress. VITAL SIGNS: Temperature 36.9, pulse 94, respiratory rate 19, blood pressure 112/73. SKIN: Without rash or lesion. HEENT: Atraumatic, normocephalic. Nares are patent without rhinorrhea or discharge. Throat is clear. Tongue midline. NECK: Supple without JVD or thyromegaly. HEART: Regular rate and rhythm. LUNGS: Clear to auscultation bilaterally. ABDOMEN: Soft, nontender, nondistended. EXTREMITIES: No clubbing, cyanosis or edema. NEUROLOGICAL: She is awake, alert and oriented x3, nonfocal. LABORATORY DATA: WBC count of 3600, hemoglobin 10.5, platelet count 144,000. D-dimer is elevated at 1360. Sodium 137, potassium 3.9, chloride 107, carbon dioxide 21, creatinine 2.29, BUN 19, glucose 225. Her albumin 3.1. TSH 55.8, T4 of 0.73 and free T3 of 2.16. Urinalysis unremarkable. Theophylline 17 mcg per mL. RADIOGRAPHIC DATA: Chest x-ray: Cardiomegaly without acute cardiopulmonary anomalies, right suprahilar nodular densities seen better on chest CT scan. CT of the abdomen and pelvis: No acute infectious or inflammatory findings within the abdomen and pelvis, colonic diverticulosis without evidence of diverticulitis. Hepatomegaly is noted and advanced coronary artery calcification. IMPRESSION: 1. Asthenia/weakness. 2. History of COVID-19 infection. Hospitalized early 07/06. 3. Metastatic nonsmall cell lung cancer.(Pembrolizumab) 07/10/20 4. Hypothyroidism, attributable to pembrolizumab therapy. 5. Diabetes mellitus. 6. Chronic obstructive pulmonary disease. 7. Acute renal injury superimposed on chronic kidney disease. PLAN: Kasie was admitted to [facility] yesterday with generalized weakness/asthenia. Clearly, hypothyroidism has worsened most likely attributable to pembrolizumab, which was administered on . Appropriately, thyroid replacement was doubled in dose. Her respiratory status remains intact. O2 sat 96% on 2 liters of O2. Theophylline level intact, may resume as prescribed. D-dimer elevation, will order CTA of the chest to rule out PE. For diabetes, we will continue a sliding scale while inpatient. Nursing reports no overnight issues. Jan CUTLER
--- NOTE | 2020-07-18 17:50 | Electrocardiogram Report ---
Test Reason : Blood Pressure : / mmHG Vent. Rate : 075 BPM Atrial Rate : 075 BPM P-R Int : 148 ms QRS Dur : 096 ms QT Int : 360 ms P-R-T Axes : 054 -11 043 degrees QTc Int : 402 ms Normal sinus rhythm Nonspecific ST and T wave abnormality Abnormal ECG When compared with ECG of 28-JUN-2020 16:54, Nonspecific T wave abnormality now evident in Inferior leads Nonspecific T wave abnormality, worse in Anterior leads Confirmed by Willie Freitas ([id number]) on 07/18/2020 5:49:44 PM Referred By: Confirmed By:Anthony Freitas
[2020-07-18] MEDS: PANTOprazole 40 MG TAB PO SCH (20:23)
[2020-07-19] MEDS: HEPARIN SOD 5,000 UNIT/0.5 ML VIAL SQ SCH ×3 (05:53→20:56)
[2020-07-19] MEDS: LEVOTHYROXINE SODIUM 150 MCG TABLET PO SCH (05:54)
[2020-07-19] MEDS: HYDROCORTISONE SOD 100 MG in SYRINGE 0 ML IV SCH ×3 (05:54→20:55)
[2020-07-19 07:23] LABS: Hematocrit (blood only) 28.3 % (37-47); Hemoglobin 9.5 g/dL (12.0-16.0); Immature Granulocytes # (auto) 0.02 K/uL (0.00-0.02); Immature Granulocytes % (auto) 0.3 %; Lymphocytes # (auto) 1.12 K/uL (1.2-3.4); Lymphocytes % (auto) 14.8 %; Mean Corpuscular Hemoglobin 29.7 pg (25-34); Mean Corpuscular Hgb Conc 33.6 g/dL (32-36); Mean Corpuscular Volume 88.4 fL (80-100); Mean Platelet Volume 10.2 fL (7.4-10.4); Neutrophils # (auto) 6.13 K/uL (1.4-6.5); Neutrophils % (auto) 80.9 %; Platelet Count 151 K/uL (130-400); RDW Coefficient of Variation 17.4 % (11.5-14.5); White Blood Count 7.57 K/uL (4.8-10.8)
[2020-07-19] MEDS: FOLIC ACID 1 MG TAB PO SCH (07:50)
[2020-07-19] MEDS: LIOTHYRONINE SODIUM 5 MCG TAB PO SCH (07:50)
[2020-07-19] MEDS: INSULIN ASPART 100 UNITS/ML 3 ML PEN SC SCH ×4 (07:51→20:55)
[2020-07-19] MEDS: THEOPHYLLINE 300MG EXTENDED REL TAB PO SCH ×2 (07:51→20:56)
[2020-07-19] MEDS: SERTRALINE HCL 100 MG TABLET PO SCH (07:51)
[2020-07-19 07:55] LABS: BUN Creatinine Ratio 13.8 (10-20); Calcium 9.4 mg/dl (8.5-10.1); Creatinine Clr Calc Pharmacy 26.8 ml/min; Est GFR (African American) 25.3; Est GFR (Non-African American) 21.8; Potassium 3.9 mmol/L (3.5-5.1)
[2020-07-19 07:58] LABS: Albumin Globulin Ratio 0.9 (0.9-2); Bilirubin,Total 0.7 mg/dl (0.2-1); Globulin 3.2 gm/dl (2.5-4.0); Total Protein 6.2 gm/dl (6.4-8.2)
--- NOTE | 2020-07-19 09:05 | Progress Notes ---
DATE: 07/19/2020 DIAGNOSES: 1. History of COVID-19 infection ischemia/fatigue. 2. Hypothyroidism. 3. Acute renal injury superimposed on chronic kidney disease. 4. Hypertension. 5. Chronic obstructive pulmonary disease. 6. Diabetes mellitus. SUBJECTIVE: The patient is a pleasant 74-year-old female well known to [facility] with metastatic nonsmall cell lung cancer, currently on pembrolizumab. She was admitted to [facility] couple of days ago with generalized weakness and acquired hypothyroidism, most likely attributable to pembrolizumab. Her last dose was administered on . One of my concerns yesterday was the elevated D-dimer. However, on review her D-dimer was much higher when she had COVID-19 earlier this month and it is currently in retreat. The patient's respiratory status has remained stable overnight. She reports no pain or concerns. She is tolerating her appetite and moving her bowels regularly. Nursing denies any overnight difficulties. OBJECTIVE: GENERAL: A very pleasant 74-year-old female in no acute distress. VITAL SIGNS: Temperature 36.8, pulse 74, respiratory rate 18, blood pressure 112/66. SKIN: Without rash or lesion. HEENT: Oral mucosa without erythema or ulceration. HEART: Regular rate and rhythm. LUNGS: Clear to auscultation bilaterally. ABDOMEN: Soft, nontender, nondistended. EXTREMITIES: No clubbing, cyanosis or edema. NEUROLOGIC: Nonfocal. LABORATORY DATA: WBC count 7570, hemoglobin 9.5, platelet count 151,000. Sodium 140, potassium 3.9, chloride 110, carbon dioxide 23, creatinine 2.15, BUN 30, glucose 202, albumin 3.0. Cortisol and ACTH both pending. IMPRESSION: 1. Asthenia/weakness. 2. History of COVID-19 infection, hospitalized early 06/2020. 3. Metastatic nonsmall cell lung cancer. Current therapy pembrolizumab administered 07/10/2020. 4. Hypothyroidism, attributable to pembrolizumab therapy. 5. 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 6. Diabetes mellitus. 7. Chronic obstructive pulmonary disease. 8. Acute renal injury superimposed on chronic kidney disease. PLAN: The patient was seen and examined at bedside. She is feeling much better, ambulating ad brain and tolerating her diet. I had ordered a cortisol and ACTH levels for today because not only hypothyroidism, but also hypopituitarism can result from pembrolizumab therapy. She continues her support respiratory medicines for COPD including resumption of theophylline. I reviewed her D-dimer and at this point, the patient does not need to undergo CTA or a VQ scan to rule out pulmonary embolism in my estimation. In regard to her diabetes mellitus, we will continue sliding scale while inpatient. I suspect the patient could probably be discharged once the cortisol and a ACTH levels are reviewed and normal. Questions and concerns were addressed at bedside.
--- NOTE | 2020-07-19 11:22 | Billing Data ---
Date of Service July 18, 2020 Coding Level of Care Code 07829 Subseq Hosp Care Lvl 2
--- NOTE | 2020-07-19 11:22 | Billing Data ---
Date of Service July 19, 2020 Coding Level of Care Code 69238 Subseq Hosp Care Lvl 2
[2020-07-19] MEDS: PANTOprazole 40 MG TAB PO SCH (20:57)
[2020-07-20] MEDS: HEPARIN SOD 5,000 UNIT/0.5 ML VIAL SQ SCH ×3 (06:28→20:39)
[2020-07-20] MEDS: LEVOTHYROXINE SODIUM 150 MCG TABLET PO SCH (06:29)
[2020-07-20] MEDS: HYDROCORTISONE SOD 100 MG in SYRINGE 0 ML IV SCH ×2 (06:29→13:19)
[2020-07-20 06:38] LABS: Hematocrit (blood only) 29.1 % (37-47); Hemoglobin 9.6 g/dL (12.0-16.0); Immature Granulocytes # (auto) 0.02 K/uL (0.00-0.02); Immature Granulocytes % (auto) 0.3 %; Lymphocytes # (auto) 1.37 K/uL (1.2-3.4); Lymphocytes % (auto) 20.1 %; Mean Corpuscular Hemoglobin 29.5 pg (25-34); Mean Corpuscular Volume 89.5 fL (80-100); Mean Platelet Volume 10.7 fL (7.4-10.4); Monocytes # (auto) 0.38 K/uL (0.11-0.59); Monocytes % (auto) 5.6 %; Neutrophils # (auto) 5.05 K/uL (1.4-6.5); Platelet Count 165 K/uL (130-400); RDW Coefficient of Variation 17.9 % (11.5-14.5); RDW Standard Deviation 58.9 fL (36.4-46.3); Red Blood Count 3.25 M/uL (4.2-5.4); White Blood Count 6.82 K/uL (4.8-10.8)
[2020-07-20 07:05] LABS: BUN Creatinine Ratio 16.2 (10-20); Calcium 8.5 mg/dl (8.5-10.1); Creatinine Clr Calc Pharmacy 31.2 ml/min; Est GFR (African American) 30.3; Est GFR (Non-African American) 26.2; Potassium 3.5 mmol/L (3.5-5.1)
[2020-07-20 07:08] LABS: Albumin Globulin Ratio 0.9 (0.9-2); Bilirubin,Total 0.6 mg/dl (0.2-1); Globulin 3.3 gm/dl (2.5-4.0); Total Protein 6.3 gm/dl (6.4-8.2)
[2020-07-20] MEDS: LIOTHYRONINE SODIUM 5 MCG TAB PO SCH (08:02)
[2020-07-20] MEDS: FOLIC ACID 1 MG TAB PO SCH (08:02)
[2020-07-20] MEDS: INSULIN ASPART 100 UNITS/ML 3 ML PEN SC SCH ×4 (08:02→20:42)
[2020-07-20] MEDS: SERTRALINE HCL 100 MG TABLET PO SCH (08:02)
[2020-07-20] MEDS: THEOPHYLLINE 300MG EXTENDED REL TAB PO SCH (08:02)
--- NOTE | 2020-07-20 16:00 | Hospitalist Progress Note ---
Date of Service July 20, 2020 Assessment & Plan (1) Hypothyroidism (acquired): Patient with progressive hypothyroidism over the past few months, with TSH of 55.80 this admission. Likely due to pembrolizumab, as up to 15% of patients can have thyroiditis or hypothyroidism. Median onset of symptoms is 2-4 weeks from initiation of therapy. Literature suggests treating the hypothyroidism is the usual treatment action. (Immune checkpoint inhibitors and thyroid dysfunction: A case from the endocrine teaching clinics). - Continue levothyroxine - Stop liothyronine - Will discuss with endocrinology tomorrow. (2) Weakness: Secondary to under-corrected thyroid and residual COVID-19 infection. - AM cortisol level was >150; however, this was on hydrocortisone which causes elevated cortisol levels. Likewise, ACTH is pending, but is likely suppressed by the high-dose steroids. (3) Acute kidney injury superimposed on chronic kidney disease: Creatinine 2.52 upon admission, with range 1.89-2.16. Likely dehydration. - By 07/20, back to baseline Cr of 1.8. (4) COVID-19: History of COVID-19 infection with initial diagnosis on 06/08/2020. Admission treatment on 06/15-06/18. - No further inpatient needs (5) Depression: No concerning symptoms inpatient. - Continue sertraline (6) Hypertension: BP was 95/60 on admission; appears to have been lower in at least 1 clinic visit as well back in 02/2020. - Hold all antihypertensives due to relative hypotension. (7) COPD (chronic obstructive pulmonary disease): No wheezing today. - Continue theophylline - DuoNebs PRN (8) Diabetes: A1c was 7.1% in 03/2020. - Recheck A1c - Hold sitagliptin. - Place on Accu-Cheks before meals and at bedtime with NovoLog coverage per scale (9) DVT prophylaxis: Heparin 7,500 units SQ Q12h Admission and Anticipated Discharge Date Admission Date: July 17, 2020 Subjective Doing better today. No major concerns, though still tired. Reports no fevers/chills, chest pain, shortness of breath, abdominal pain, nausea, or vomiting. Physical Exam Constitutional: WD/WN, vitals as above Eyes: EOM intact bilaterally; no conjunctival abnormality ENMT: external ear and nose normal, oropharynx normal Neck: trachea midline, no thyromegaly normal visual inspection Respiratory: normal respiratory effort, lungs clear to auscultation no respiratory distress Cardiovascular: RRR, no murmur, no edema Gastrointestinal (Abdomen): Inspection/Auscultation: abdomen normal to inspection; abdomen not distended Musculoskeletal: no cyanosis or clubbing, extremities motor strength 5/5 Skin: no rashes, warm and dry Neurologic: moves all extremities and awake Psychiatric: Orientation: alert, oriented to person and cooperative Results & Data Results & Data ([facility]) Vital Signs (Past 12 Hours) Vital Signs Temp Pulse Resp BP Pulse Ox 07/20/20 07:45 36.9 C 77 18 138/75 96 PG Care Time/CCT Total # of Minutes Spent Total Time Spent with Patient: Total time spent is greater than 50% in coordination of care (as documented) at patient's floor/unit and/or counseling patient: Coding Level of Care Code 09743 Subseq Hosp Care Lvl 3 Diagnoses Hypothyroidism (acquired) E03.9 Weakness R53.1 Acute kidney injury superimposed on chronic kidney disease N17.9; N18.9 COVID-19 U07.1 Depression F32.9 Hypertension I10 COPD (chronic obstructive pulmonary disease) J44.9 Diabetes E11.9 DVT prophylaxis Z29.9
[2020-07-20] MEDS: PANTOprazole 40 MG TAB PO SCH (20:38)
[2020-07-21] MEDS: LEVOTHYROXINE SODIUM 150 MCG TABLET PO SCH (06:11)
[2020-07-21 07:11] LABS: Hematocrit (blood only) 28.3 % (37-47); Hemoglobin 9.4 g/dL (12.0-16.0); Mean Corpuscular Hemoglobin 29.5 pg (25-34); Mean Corpuscular Hgb Conc 33.2 g/dL (32-36); Mean Corpuscular Volume 88.7 fL (80-100); Mean Platelet Volume 10.3 fL (7.4-10.4); Nucleated RBC # (auto) 0.02 K/uL (0-0); Nucleated RBC % (auto) 0.3 %; Platelet Count 159 K/uL (130-400); RDW Coefficient of Variation 17.8 % (11.5-14.5); RDW Standard Deviation 58.5 fL (36.4-46.3); Red Blood Count 3.19 M/uL (4.2-5.4); White Blood Count 6.03 K/uL (4.8-10.8)
[2020-07-21 07:25] VITALS: TEMP 98.2
[2020-07-21 07:43] LABS: Albumin Level 2.8 gm/dl (3.4-5.0); BUN Creatinine Ratio 16.5 (10-20); Calcium 8.5 mg/dl (8.5-10.1); Creatinine Clr Calc Pharmacy 35.1 ml/min; Est GFR (African American) 35.4; Est GFR (Non-African American) 30.5; Magnesium 1.9 mg/dl (1.8-2.4)
[2020-07-21 07:54] LABS: Albumin Globulin Ratio 0.9 (0.9-2); Bilirubin,Total 0.6 mg/dl (0.2-1); Globulin 3.1 gm/dl (2.5-4.0); Phosphorus 2.3 mg/dl (2.5-4.9); Thyroid Stimulating Hormone 4.39 uIu/ml (0.300-4.500); Total Protein 5.9 gm/dl (6.4-8.2)
[2020-07-21] MEDS: HEPARIN SOD 5,000 UNIT/0.5 ML VIAL SQ SCH (08:15)
[2020-07-21] MEDS: FOLIC ACID 1 MG TAB PO SCH (08:15)
[2020-07-21] MEDS: SERTRALINE HCL 100 MG TABLET PO SCH (08:15)
[2020-07-21] MEDS: INSULIN ASPART 100 UNITS/ML 3 ML PEN SC SCH ×2 (08:21→12:34)
[2020-07-21 10:44] VITALS: O2SAT 96
[2020-07-21 13:43] VITALS: BP 151/83; PULSE 74
[2020-07-21 16:32] LABS: Microsomal Ab 125 IU/mL (<9); Thyroglobulin Antibodies <1 IU/mL (< or = 1)
--- NOTE | 2020-07-21 17:09 | Discharge Summary ---
Date of Service July 21, 2020 Admission HPI Per Admitting Provider The patient is a 74-year-old female with a past medical history including hypothyroidism, elevated LFTs, UTI, neutropenic fever, acute renal failure, pancytopenia, history of right knee surgery, CKD stage III, hypertension, depression, COPD, diabetes mellitus, arthritis, lung cancer and COVID-19 diagnosed on 06/08/2020. She was hospitalized from 06/15-06/18 and then discharged to home. Since that time she has become progressively more fatigued, and has had intermittent nausea and vomiting. Principal Diagnosis Likely pembrolizumab-related hypothyroidism and possible adrenal insufficiency Discharge Exam Constitutional WD/WN, vitals as above Eyes EOM intact bilaterally; no conjunctival abnormality ENMT external ear and nose normal, oropharynx normal Neck trachea midline, no thyromegaly normal visual inspection Respiratory normal respiratory effort, lungs clear to auscultation no respiratory distress Cardiovascular RRR, no murmur, no edema Gastrointestinal (Abdomen) Inspection/Auscultation: abdomen normal to inspection; abdomen not distended Musculoskeletal no cyanosis or clubbing, extremities motor strength 5/5 Skin no rashes, warm and dry Neurologic moves all extremities and awake Psychiatric Orientation: alert, oriented to person and cooperative Discharge Data Allergies Allergy/AdvReac Type Severity Reaction Status Date / Time adhesive Allergy Unknown PULLS SKIN Verified 07/17/20 14:51 OFF Penicillins Allergy Unknown TONGUE Verified 07/17/20 14:51 SWELLING azithromycin AdvReac Unknown Nausea Verified 07/17/20 14:51 Consultations 07/17/20 16:20 ED Decision to Admit Stat 07/17/20 18:59 Consult Case Management - Discharge Planning Routine Ordered Studies 07/17/20 14:03 CT abd pelvis wo con Stat Hospital Course (1) Hypothyroidism (acquired): Patient with progressive hypothyroidism over the past few months, with TSH of 55.80 this admission. Likely due to pembrolizumab, as up to 15% of patients can have thyroiditis or hypothyroidism. Median onset of symptoms is 2-4 weeks from initiation of therapy. Literature suggests treating the hypothyroidism is the usual treatment action. (Immune checkpoint inhibitors and thyroid dysfunction: A case from the endocrine teaching clinics). - Continue levothyroxine - Stopped liothyronine - Discussed with Dr. Kingston. Likely only needs a small increase in her levothyroxine, so discharged on 88 mcg PO daily. - She felt ready to go home on 07/21. She will need follow up with endocrinology in 1-2 weeks for an Cosyntropin stimulation test (1 mcg) to check for adrenal insufficiency. (2) Weakness: Secondary to under-corrected thyroid and residual COVID-19 infection. - AM cortisol level was >150; however, this was on hydrocortisone which causes elevated cortisol levels. Likewise, ACTH is pending, but is likely suppressed by the high-dose steroids. (3) Acute kidney injury superimposed on chronic kidney disease: Creatinine 2.52 upon admission, with range 1.89-2.16. Likely dehydration. - By 07/20, back to baseline Cr of 1.8. (4) COVID-19: History of COVID-19 infection with initial diagnosis on 06/08/2020. Admission treatment on 06/15-06/18. - No further inpatient needs (5) Depression: No concerning symptoms inpatient. - Continue sertraline (6) Hypertension: BP was 95/60 on admission; appears to have been lower in at least 1 clinic visit as well back in 02/2020. - Hold all antihypertensives due to relative hypotension. (7) COPD (chronic obstructive pulmonary disease): No wheezing today. - Continue theophylline - DuoNebs PRN (8) Diabetes: A1c was 7.1% in 03/2020. - Recheck A1c - Hold sitagliptin. - Place on Accu-Cheks before meals and at bedtime with NovoLog coverage per scale (9) DVT prophylaxis: Heparin 7,500 units SQ Q12h Total Time Total Time Spent Total Time Spent (In Minutes): 35 Discharge Plan Discharge Items Patient Disposition: Home - Self-Care Reason For Visit: NAUSEA AND VOMITING, HYPOTHYROIDISM Discharge Diagnosis: Hypothyroidism Activity: Resume your previous activity Non-emergency contact: Primary Care Provider, Specialist and Oncologist Call non-emergency contact if: your symptoms worsen Follow-up/Referrals: Mal Kingston MD [Physician] - 07/23/20 12:30 pm (You have an appt with Dr. Urban on 07/23 @ 4037. Please arrive 15 minutes prior to your appt. It is important that you keep this appt. ) Jan Simon V., [Physician] - (The office will call you tomorrow with your appt date and time. ) Arthur Cruz [Primary Care Provider] - Diet: Carb Consistent or DM2 Addtl Attending Provider Instructions: You were admitted for weakness and GI symptoms that mostly relate to hypothyroidism. We think it may be related to your chemotherapy (pembrolizumab). Dr. Kingston will see you next week to further test your adrenal glands. In the meantime, we have raised your levothyroxine slightly to help keep your thyroid levels normal. Please follow up with Dr. Simon or Aylin Bernabe next week as well to be sure you are getting close care for your cancer. Pending Studies at Discharge: No Stand-Alone Forms: My [facility] [employer], Smoking Cessation Medications and DC Order Prescriptions: New levothyroxine 88 mcg capsule 88 mcg PO DAILY Qty: 30 RF: 0 Continued carvedilol 6.25 mg tablet 6.25 mg PO BID RF: 0 sertraline 100 mg tablet 100 mg PO QAM RF: 0 hydrocodone-acetaminophen 10-325 mg tablet 1 tab PO BID PRN (Reason: Pain, Severe) RF: 0 theophylline 300 mg tablet extended release 12 hr 300 mg PO BID RF: 0 folic acid 1 mg tablet 1 mg PO QAM RF: 0 sitagliptin 50 mg tablet 50 mg PO QAM RF: 0 Combivent Respimat 20-100 mcg/actuation Mist 1 puff INHALATION Q4H PRN (Reason: Shortness Of Breath Or Wheezing) RF: 0 furosemide 20 mg tablet 20 mg PO DAILY PRN (Reason: Swelling) RF: 0 esomeprazole magnesium 20 mg capsule,delayed release(DR/EC) 20 mg PO HS RF: 0 ondansetron HCl [Zofran] 4 mg tablet 4 mg PO Q6H PRN (Reason: nausea and vomiting) Qty: 6 RF: 0 Discontinued levothyroxine 75 mcg tablet 75 mcg PO QAM RF: 0 Discharge Orders: Discharge Order (Routine); Ordered 07/21/20 Ordered By: Derek Israel Admission Data Admit Date/Time: 07/17/20 17:17 Attending Provider: Derek Israel Admit Provider: Tramaine Connor Primary Care Provider: Arthur Cruz Other Providers: Derek Israel Other Interventions: Discharge Summary Assessment (RN) Last Done: 07/21/20 13:41 Coding Level of Care Code D/C Day Management >30 mins Diagnoses Hypothyroidism (acquired) E03.9 Weakness R53.1 Acute kidney injury superimposed on chronic kidney disease N17.9; N18.9 COVID-19 U07.1 Depression F32.9 Hypertension I10 COPD (chronic obstructive pulmonary disease) J44.9 Diabetes E11.9 DVT prophylaxis Z29.9
== END 2020-07-21 15:19 | disposition home or self-care (01) | DRG 644 ==
LOC: ED 12:43 → 2N 17:17 → SUATTDRO 17:17 → 2N 18:34

== ENCOUNTER 2020-07-28 15:43 | Observation (INO) ==
[2020-07-28] MEDS ORDERED: SODIUM CHLORIDE 0.9% 500 ML IV SCH (16:15)
--- NOTE | 2020-07-28 16:20 | Emergency Department Note ---
Impression & Plan Abdominal pain, Hypothyroidism (acquired), Nausea ED Provider Note Provider: Darryl Maya MD DATE OF SERVICE:07/28/2020 CHIEF COMPLAINT: Abdominal pain, nausea, weakness HISTORY OF PRESENT ILLNESS: Patient is a 75-year-old female with a history of CKD, hypertension, COPD, Covid, hypothyroidism, diabetes with a recent admission presenting today referred by the primary care's office due to left-sided lower abdominal pain with nausea falls generalized weakness fatigue and decreased intake. Patient states she felt well when she went home on the fourth however since going home she is declined and now has not been able to eat or drink very much at all. Patient states she been using the home prescribed Zofran tablets to help with the nausea but she still cannot really eat. States she had 4 episodes of diarrhea overnight. Denies any syncope or near syncope. Denies any trauma or falls. Patient states she is little bit of pain from the left side of her abdomen does radiate little bit to the left lower chest wall. Patient states she has chronic COPD but breathing is not that significantly changed. Patient denies sick contacts at home. Patient states this feels similar to the last time she presented here. Patient did have coronavirus in May of this year. Denies any new numbness or tingling or aphasia/slurred speech. REVIEW OF SYSTEMS: A total of 10 review of systems was obtained and negative except as stated above in the HPI. PAST MEDICAL HISTORY: As noted above MEDICATIONS: Reviewed home medications SOCIAL HISTORY: Smoker, lives at home with granddaughter PHYSICAL EXAM: GENERAL: alert and oriented in no acute distress on stretcher however appears fatigued Head: normocephalic and atraumatic EYES: No injection, discharge or icterus. NECK: Trachea midline. LUNGS: Airway patent. No retractions. Breath sounds with scattered wheeze. HEART: Regular rate and rhythm. Slight left lower axillary chest wall tenderness ABDOMEN: Soft with some slight left-sided lower abdominal tenderness but not peritoneal. No guarding. Well healed right-sided abdominal scar. SKIN: Acyanotic, warm, dry, without rashes EXTREMITIES: Without swelling, tenderness or deformity NEUROLOGICAL: No focal deficits. No aphasia. No facial droop or slurred speech. Moves all extremities to command. EK bpm normal sinus rhythm without PVC or PAC. No acute ST segment rob vation or depression. Normal QTC. Normal axis. CONTINUOUS CARDIAC MONITORING: was ordered and showed a heart rate of 75 bpm in normal sinus rhythm Patient's laboratory studies and imaging reviewed. Differential includes Infection, dehydration, metabolic abnormality, hypo/hyperglycemia, electrolyte disturbance, anemia, hypoxia, cardiac sources, intracerebral event, toxicologic, neurologic, as well as other pathologies. IMPRESSION/MEDICAL DECISION MAKING: Patient presents for by PCP due to worsening status at home decreased intake abdominal pain and nausea. Reports of nonbloody diarrhea several times overnight. Patient denies nausea at this point but was initially given some IV fluids. Has CKD. Not having severe shortness of breath not hypoxic or tachycardic. Doubt sepsis. Lower suspicion for acute PE given lack of significant respiratory symptoms at this point. EKG was complete without significant abnormality. Troponin was sent to help exclude ACS as well as basic laboratory studies, lactate, VBG, & ammonia. Patient was somewhat fatigued but not having real focality to her exam. No believe this represents acute meningitis, CVA, or intracranial hemorrhage. Chest x-ray per radiology shows no consolidation consistent with pneumonia with a known right upper lung pulmonary mass. Blood work without evidence of significant leukocytosis. Mild stable anemia. VBG without hypercarbia or acidosis. Ammonia not significantly elevated. Troponin is not elevated. No evidence of hepatitis based on laboratory studies. TSH is significantly weighted 24 increased compared to previous although not as high as recent admission. Patient states she been taking her medicines. This may be contributing to her symptomatologies. CT the abdomen pelvis per radiology report without evidence significant intra-abdominal pathology noted. On reassessment the patient still feeling quite weak. States her abdominal pain has improved some. Discussed with her findings. Discussion given her significant decreased intake and symptoms she wished for further care here at the hospital to believe and the hospitalist contacted. DIAGNOSIS: Abdominal pain, nausea, hypothyroidism DISPOSITION: Hospitalist will evaluate Patient was agreeable with this plan. Past Med/Surg History Medical History (Updated 07/28/20 @ 18:00 by Darryl Maya M.D.) Arthritis Chronic renal failure, stage 3 (moderate) COPD (chronic obstructive pulmonary disease) Depression Diabetes Hypothyroidism (acquired) Lung cancer Neutropenic fever Orthostatic hypotension Right knee DJD Surgical History Hx of right knee surgery Family History Other Diabetes Heart disease Hypertension Lung disease Social History Smoking Status: Former smoker Tobacco Type: Cigarettes Second Hand Exposure: No; Hx Alcohol Use: No Hx Substance Use: No Preferred Language: Hebrew Communication Ability: Effective 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 Beliefs That Will Affect Care: None marital status: / Current Living Situation: Family Current Living Situation Comment: [email or web address] How many Children do You have: 3 Feels Safe at Home: Yes Assistive Devices: None Allergies Allergies Allergy/AdvReac Type Severity Reaction Status Date / Time adhesive Allergy Unknown PULLS SKIN Verified 07/28/20 18:49 OFF Penicillins Allergy Unknown TONGUE Verified 07/28/20 18:49 SWELLING azithromycin AdvReac Unknown Nausea Verified 07/28/20 18:49 Home Meds Home Medications Medication Instructions Recorded Confirmed Combivent Respimat 1 puff INHALATION Q4H PRN 07/17/18 07/28/20 carvedilol 6.25 mg PO BID 07/17/18 07/28/20 folic acid 1 mg PO QAM 07/17/18 07/28/20 hydrocodone-acetaminophen 1 tab PO BID PRN 07/17/18 07/28/20 sertraline 100 mg PO QAM 07/17/18 07/28/20 sitagliptin 50 mg PO QAM 07/17/18 07/28/20 theophylline 300 mg PO BID 07/17/18 07/28/20 esomeprazole magnesium 20 mg PO HS 06/28/20 07/28/20 furosemide 20 mg PO DAILY PRN 06/28/20 07/28/20 Previous Rx's Medication Instructions Recorded ondansetron HCl [Zofran] 4 mg PO Q6H PRN #6 tab 06/28/20 levothyroxine 88 mcg PO DAILY #30 cap 07/21/20 Results & Data (ED) Vital Signs Vital Signs - 24 hr 07/28/20 15:49 07/28/20 16:07 07/28/20 17:00 Temperature 36.0 C L Temperature Source Temporal Artery Scan Pulse Rate 80 73 72 Pulse Rate [Apical] 74 Pulse Rate from SpO2 Sensor 72 Pulse Rhythm Regular Pulse Rhythm [Apical] Regular Pulse Strength [Apical] Normal Respiratory Rate 18 16 18 Respiratory Effort / Characteristics Non-Labored Spontaneous Respiratory Depth Normal Respiratory Pattern Regular Blood Pressure 105/67 114/67 Blood Pressure [Left Arm] 113/74 Blood Pressure Mean 79 79 Blood Pressure Mean [Left Arm] 87 Blood Pressure Position [Left Arm] Semi-fowlers Pulse Oximetry 95 93 92 Oxygen Delivery Method Room Air Room Air Sepsis Recent Fever Within 48 Hours No Sepsis New/Unexplained Change in Mental Status N/A Sepsis Action Taken by Nursing No Action Required 07/28/20 17:30 07/28/20 18:00 07/28/20 18:30 Temperature Temperature Source Pulse Rate 71 73 75 Pulse Rate [Apical] Pulse Rate from SpO2 Sensor 71 73 75 Pulse Rhythm Pulse Rhythm [Apical] Pulse Strength [Apical] Respiratory Rate 18 18 19 Respiratory Effort / Characteristics Respiratory Depth Respiratory Pattern Blood Pressure 107/55 L 118/74 124/69 Blood Pressure [Left Arm] Blood Pressure Mean 67 91 80 Blood Pressure Mean [Left Arm] Blood Pressure Position [Left Arm] Pulse Oximetry 96 93 95 Oxygen Delivery Method Room Air Room Air Room Air Sepsis Recent Fever Within 48 Hours Sepsis New/Unexplained Change in Mental Status Sepsis Action Taken by Nursing 07/28/20 19:00 Temperature Temperature Source Pulse Rate 72 Pulse Rate [Apical] Pulse Rate from SpO2 Sensor 73 Pulse Rhythm Pulse Rhythm [Apical] Pulse Strength [Apical] Respiratory Rate 14 Respiratory Effort / Characteristics Respiratory Depth Respiratory Pattern Blood Pressure 113/55 L Blood Pressure [Left Arm] Blood Pressure Mean 64 Blood Pressure Mean [Left Arm] Blood Pressure Position [Left Arm] Pulse Oximetry 94 Oxygen Delivery Method Room Air Sepsis Recent Fever Within 48 Hours Sepsis New/Unexplained Change in Mental Status Sepsis Action Taken by Nursing Laboratory Data Result diagrams: 07/28/20 16:40 07/28/20 16:40 Lab Results 07/28/20 07/28/20 07/28/20 Range/Units 16:40 16:40 16:40 WBC 5.09 (4.8-10.8) K/uL RBC 3.80 L (4.2-5.4) M/uL Hgb 11.3 L (12.0-16.0) g/dL Hct 34.6 L (37-47) % MCV 91.1 (80-100) fL MCH 29.7 (25-34) pg MCHC 32.7 (32-36) g/dL RDW Std Deviation 57.6 H (36.4-46.3) fL RDW Coeff of Maye 17.2 H (11.5-14.5) % Plt Count 160 (130-400) K/uL MPV 10.5 H (7.4-10.4) fL Immature Gran % (Auto) 0.4 % Neut % (Auto) 49.5 % Lymph % (Auto) 34.6 % [place] % (Auto) 8.8 % Eos % (Auto) 6.5 % Baso % (Auto) 0.2 % Neut # (Auto) 2.52 (1.4-6.5) K/uL Lymph # (Auto) 1.76 (1.2-3.4) K/uL [place] # (Auto) 0.45 (0.11-0.59) K/uL Eos # (Auto) 0.33 (0-0.5) K/uL Baso # (Auto) 0.01 (0-0.2) K/uL Immature Gran # (Auto) 0.02 (0.00-0.02) K/uL PT 11.2 (9.0-12.0) Seconds INR 1.1 (0.9-1.1) VBG pH (7.36-7.41) VBG pCO2 (38-50) mmHg VBG pO2 mmHg VBG HCO3 mmol/L VBG O2 Saturation % VBG Base Excess mEq/L Barometric Pressure mm/Hg Sodium 140 (136-145) mmol/L Potassium 3.7 (3.5-5.1) mmol/L Chloride 106 (98-107) mmol/L Carbon Dioxide 26 (21-32) mmol/L Anion Gap 8.0 (3-11) BUN 15 (7-18) mg/dl Creatinine 1.99 H (0.6-1.2) mg/dl Est Cr Clr Drug Dosing 27.8 ml/min Est GFR ( Amer) 27.6 Est GFR (Non-Af Amer) 23.8 BUN/Creatinine Ratio 7.7 L (10-20) Glucose 154 H (70-99) mg/dl Lactate (0.4-2.0) mmol/L Calcium 9.0 (8.5-10.1) mg/dl Magnesium 2.0 (1.8-2.4) mg/dl Total Bilirubin 0.7 (0.2-1) mg/dl AST 13 L (15-37) U/L ALT 19 (12-78) U/L Alkaline Phosphatase 76 (45-117) U/L Ammonia (11-32) umol/L Troponin I < 0.015 (0-0.045) ng/ml Total Protein 6.9 (6.4-8.2) gm/dl Albumin 3.3 L (3.4-5.0) gm/dl Globulin 3.6 (2.5-4.0) gm/dl Albumin/Globulin Ratio 0.9 (0.9-2) Lipase (73-393) U/L Procalcitonin (0-0.5) ng/ml TSH 24.300 H (0.300-4.500) uIu/ml Free T4 0.90 (0.8-1.6) ng/dl Random Cortisol mcg/dl Theophylline (10-20) mcg/ml COVID-19 Eval Order SARS-CoV-2, RNA, NAAT (NEGATIVE) 07/28/20 07/28/20 07/28/20 Range/Units 16:40 16:40 16:40 WBC (4.8-10.8) K/uL RBC (4.2-5.4) M/uL Hgb (12.0-16.0) g/dL Hct (37-47) % MCV (80-100) fL MCH (25-34) pg MCHC (32-36) g/dL RDW Std Deviation (36.4-46.3) fL RDW Coeff of Maye (11.5-14.5) % Plt Count (130-400) K/uL MPV (7.4-10.4) fL Immature Gran % (Auto) % Neut % (Auto) % Lymph % (Auto) % [place] % (Auto) % Eos % (Auto) % Baso % (Auto) % Neut # (Auto) (1.4-6.5) K/uL Lymph # (Auto) (1.2-3.4) K/uL [place] # (Auto) (0.11-0.59) K/uL Eos # (Auto) (0-0.5) K/uL Baso # (Auto) (0-0.2) K/uL Immature Gran # (Auto) (0.00-0.02) K/uL PT (9.0-12.0) Seconds INR (0.9-1.1) VBG pH 7.39 (7.36-7.41) VBG pCO2 47 (38-50) mmHg VBG pO2 24 mmHg VBG HCO3 28 mmol/L VBG O2 Saturation < 60.0 % VBG Base Excess 2.2 mEq/L Barometric Pressure 737.9 mm/Hg Sodium (136-145) mmol/L Potassium (3.5-5.1) mmol/L Chloride (98-107) mmol/L Carbon Dioxide (21-32) mmol/L Anion Gap (3-11) BUN (7-18) mg/dl Creatinine (0.6-1.2) mg/dl Est Cr Clr Drug Dosing ml/min Est GFR ( Amer) Est GFR (Non-Af Amer) BUN/Creatinine Ratio (10-20) Glucose (70-99) mg/dl Lactate < 0.1 L (0.4-2.0) mmol/L Calcium (8.5-10.1) mg/dl Magnesium (1.8-2.4) mg/dl Total Bilirubin (0.2-1) mg/dl AST (15-37) U/L ALT (12-78) U/L Alkaline Phosphatase (45-117) U/L Ammonia 33.9 H (11-32) umol/L Troponin I (0-0.045) ng/ml Total Protein (6.4-8.2) gm/dl Albumin (3.4-5.0) gm/dl Globulin (2.5-4.0) gm/dl Albumin/Globulin Ratio (0.9-2) Lipase (73-393) U/L Procalcitonin (0-0.5) ng/ml TSH (0.300-4.500) uIu/ml Free T4 (0.8-1.6) ng/dl Random Cortisol mcg/dl Theophylline (10-20) mcg/ml COVID-19 Eval Order SARS-CoV-2, RNA, NAAT (NEGATIVE) 07/28/20 07/28/20 07/28/20 Range/Units 16:40 16:40 16:40 WBC (4.8-10.8) K/uL RBC (4.2-5.4) M/uL Hgb (12.0-16.0) g/dL Hct (37-47) % MCV (80-100) fL MCH (25-34) pg MCHC (32-36) g/dL RDW Std Deviation (36.4-46.3) fL RDW Coeff of Maye (11.5-14.5) % Plt Count (130-400) K/uL MPV (7.4-10.4) fL Immature Gran % (Auto) % Neut % (Auto) % Lymph % (Auto) % [place] % (Auto) % Eos % (Auto) % Baso % (Auto) % Neut # (Auto) (1.4-6.5) K/uL Lymph # (Auto) (1.2-3.4) K/uL [place] # (Auto) (0.11-0.59) K/uL Eos # (Auto) (0-0.5) K/uL Baso # (Auto) (0-0.2) K/uL Immature Gran # (Auto) (0.00-0.02) K/uL PT (9.0-12.0) Seconds INR (0.9-1.1) VBG pH (7.36-7.41) VBG pCO2 (38-50) mmHg VBG pO2 mmHg VBG HCO3 mmol/L VBG O2 Saturation % VBG Base Excess mEq/L Barometric Pressure mm/Hg Sodium (136-145) mmol/L Potassium (3.5-5.1) mmol/L Chloride (98-107) mmol/L Carbon Dioxide (21-32) mmol/L Anion Gap (3-11) BUN (7-18) mg/dl Creatinine (0.6-1.2) mg/dl Est Cr Clr Drug Dosing ml/min Est GFR ( Amer) Est GFR (Non-Af Amer) BUN/Creatinine Ratio (10-20) Glucose (70-99) mg/dl Lactate (0.4-2.0) mmol/L Calcium (8.5-10.1) mg/dl Magnesium (1.8-2.4) mg/dl Total Bilirubin (0.2-1) mg/dl AST (15-37) U/L ALT (12-78) U/L Alkaline Phosphatase (45-117) U/L Ammonia (11-32) umol/L Troponin I (0-0.045) ng/ml Total Protein (6.4-8.2) gm/dl Albumin (3.4-5.0) gm/dl Globulin (2.5-4.0) gm/dl Albumin/Globulin Ratio (0.9-2) Lipase 138 (73-393) U/L Procalcitonin < 0.05 (0-0.5) ng/ml TSH (0.300-4.500) uIu/ml Free T4 (0.8-1.6) ng/dl Random Cortisol mcg/dl Theophylline 14 (10-20) mcg/ml COVID-19 Eval Order SARS-CoV-2, RNA, NAAT (NEGATIVE) 07/28/20 07/28/20 07/28/20 Range/Units 16:40 17:40 17:40 WBC (4.8-10.8) K/uL RBC (4.2-5.4) M/uL Hgb (12.0-16.0) g/dL Hct (37-47) % MCV (80-100) fL MCH (25-34) pg MCHC (32-36) g/dL RDW Std Deviation (36.4-46.3) fL RDW Coeff of Maye (11.5-14.5) % Plt Count (130-400) K/uL MPV (7.4-10.4) fL Immature Gran % (Auto) % Neut % (Auto) % Lymph % (Auto) % [place] % (Auto) % Eos % (Auto) % Baso % (Auto) % Neut # (Auto) (1.4-6.5) K/uL Lymph # (Auto) (1.2-3.4) K/uL [place] # (Auto) (0.11-0.59) K/uL Eos # (Auto) (0-0.5) K/uL Baso # (Auto) (0-0.2) K/uL Immature Gran # (Auto) (0.00-0.02) K/uL PT (9.0-12.0) Seconds INR (0.9-1.1) VBG pH (7.36-7.41) VBG pCO2 (38-50) mmHg VBG pO2 mmHg VBG HCO3 mmol/L VBG O2 Saturation % VBG Base Excess mEq/L Barometric Pressure mm/Hg Sodium (136-145) mmol/L Potassium (3.5-5.1) mmol/L Chloride (98-107) mmol/L Carbon Dioxide (21-32) mmol/L Anion Gap (3-11) BUN (7-18) mg/dl Creatinine (0.6-1.2) mg/dl Est Cr Clr Drug Dosing ml/min Est GFR ( Amer) Est GFR (Non-Af Amer) BUN/Creatinine Ratio (10-20) Glucose (70-99) mg/dl Lactate (0.4-2.0) mmol/L Calcium (8.5-10.1) mg/dl Magnesium (1.8-2.4) mg/dl Total Bilirubin (0.2-1) mg/dl AST (15-37) U/L ALT (12-78) U/L Alkaline Phosphatase (45-117) U/L Ammonia (11-32) umol/L Troponin I (0-0.045) ng/ml Total Protein (6.4-8.2) gm/dl Albumin (3.4-5.0) gm/dl Globulin (2.5-4.0) gm/dl Albumin/Globulin Ratio (0.9-2) Lipase (73-393) U/L Procalcitonin (0-0.5) ng/ml TSH (0.300-4.500) uIu/ml Free T4 (0.8-1.6) ng/dl Random Cortisol 2.06 mcg/dl Theophylline (10-20) mcg/ml COVID-19 Eval Order Covid19 [facility] SARS-CoV-2, RNA, NAAT NEGATIVE (NEGATIVE) Administered Medications Discontinued Medications Sodium Chloride (Nss) 500 mls @ 999 mls/hr IV .Q31M SIMONA Stop: 07/28/20 16:45 Last Infusion: 07/28/20 18:08 Dose: 0 mls/hr Documented by: [id number] Admin: 07/28/20 17:38 Dose: 999 mls/hr Documented by: [id number] Discharge Plan Visit Data Chief Complaint: Illness Stated Complaint: VOMITING, SOB, WEAKNESS ED Provider: Darryl Maya Discharge Problem: Abdominal pain, Hypothyroidism (acquired), Nausea Patient Disposition: Being Evaluated by Hospitalist Forms Stand Alone Forms: My [facility] Prescriptions Prescriptions: No Action carvedilol 6.25 mg tablet 6.25 mg PO BID RF: 0 sertraline 100 mg tablet 100 mg PO QAM RF: 0 hydrocodone-acetaminophen 10-325 mg tablet 1 tab PO BID PRN (Reason: Pain, Severe) RF: 0 theophylline 300 mg tablet extended release 12 hr 300 mg PO BID RF: 0 folic acid 1 mg tablet 1 mg PO QAM RF: 0 sitagliptin 50 mg tablet 50 mg PO QAM RF: 0 Combivent Respimat 20-100 mcg/actuation Mist 1 puff INHALATION Q4H PRN (Reason: Shortness Of Breath Or Wheezing) RF: 0 furosemide 20 mg tablet 20 mg PO DAILY PRN (Reason: Swelling) RF: 0 esomeprazole magnesium 20 mg capsule,delayed release(DR/EC) 20 mg PO HS RF: 0 ondansetron HCl [Zofran] 4 mg tablet 4 mg PO Q6H PRN (Reason: nausea and vomiting) Qty: 6 RF: 0 levothyroxine 88 mcg capsule 88 mcg PO DAILY Qty: 30 RF: 0 Referrals Referrals: Arthur Cruz [Primary Care Provider] -
[2020-07-28 16:59] LABS: Base Excess VBG 2.2 mEq/L; HCO3 VBG 28 mmol/L; Oxygen Saturation VBG < 60.0 %; PCO2 VBG 47 mmHg (38-50); PO2 VBG 24 mmHg; pH VBG 7.39 (7.36-7.41)
--- NOTE | 2020-07-28 17:00 | XRay Report ---
XR chest 1V portable CLINICAL HISTORY: weakness COMPARISON STUDY: 07/17/2020 FINDINGS: The heart is the upper limits of normal in size. There is no lobar consolidation. There is mild thickening of the minor fissure. There are linear basilar opacities likely representing subsegme ntal atelectatic change. There is a 19 mm[right upper lung zone pulmonary nodule, corresponding to th e patient's known carcinoma. IMPRESSION: 1. 19 mm right upper lung zone pulmonary mass, corresponding to the patient's known carcinoma 2. Areas of right lung atelectasis 3. No evidence of pulmonary consolidation to indicate pneumonia ACT 112: Negative or not required by law. Electronically signed by: Rosales Garcia M.D. 07/28/2020 4:59 PM
[2020-07-28 17:05] LABS: Basophils # (auto) 0.01 K/uL (0-0.2); Basophils % (auto) 0.2 %; Eosinophils # (auto) 0.33 K/uL (0-0.5); Eosinophils % (auto) 6.5 %; Hematocrit (blood only) 34.6 % (37-47); Hemoglobin 11.3 g/dL (12.0-16.0); Immature Granulocytes # (auto) 0.02 K/uL (0.00-0.02); Immature Granulocytes % (auto) 0.4 %; Lymphocytes # (auto) 1.76 K/uL (1.2-3.4); Lymphocytes % (auto) 34.6 %; Mean Corpuscular Hemoglobin 29.7 pg (25-34); Mean Corpuscular Hgb Conc 32.7 g/dL (32-36); Mean Corpuscular Volume 91.1 fL (80-100); Mean Platelet Volume 10.5 fL (7.4-10.4); Monocytes # (auto) 0.45 K/uL (0.11-0.59); Monocytes % (auto) 8.8 %; Neutrophils # (auto) 2.52 K/uL (1.4-6.5); Neutrophils % (auto) 49.5 %; Platelet Count 160 K/uL (130-400); RDW Coefficient of Variation 17.2 % (11.5-14.5); RDW Standard Deviation 57.6 fL (36.4-46.3); White Blood Count 5.09 K/uL (4.8-10.8)
[2020-07-28 17:21] LABS: Alanine Aminotransferase 19 U/L (12-78); Albumin Level 3.3 gm/dl (3.4-5.0); Aspartate Aminotransferase 13 U/L (15-37); BUN Creatinine Ratio 7.7 (10-20); Blood Urea Nitrogen 15 mg/dl (7-18); Carbon Dioxide 26 mmol/L (21-32); Chloride 106 mmol/L (98-107); Creatinine Clr Calc Pharmacy 27.8 ml/min; Est GFR (African American) 27.6; Est GFR (Non-African American) 23.8; Glucose 154 mg/dl (70-99); INR 1.1 (0.9-1.1); Potassium 3.7 mmol/L (3.5-5.1); Prothrombin Time 11.2 Seconds (9.0-12.0); Sodium 140 mmol/L (136-145)
--- NOTE | 2020-07-28 17:24 | CT Scan Report ---
ABDOMEN AND PELVIS CT WITHOUT CONTRAST CT DOSE: 1087.68 mGy.cm HISTORY: L sided and lower abd pain, nausea TECHNIQUE: Multiaxial CT images of the abdomen and pelvis were performed without contrast. A dose lo wering technique was utilized adhering to the principles of ALARA. COMPARISON STUDY: Abdomen and pelvis CT 07/17/2020. FINDINGS: A few bibasilar linear densities within the lung bases consistent with subsegmental atelect asis. No pneumoperitoneum. No pneumatosis. No fractures within the visualized osseous structures. Cho lecystectomy. The unenhanced liver, right adrenal gland, and pancreas unremarkable. There is a puncta te nonobstructing stone within the right kidney. There are few subcentimeter bilateral renal hyperden se and hyperdense lesions. These are incompletely characterized on this noncontrast study but favor c ysts. These are not significantly changed. Mild bilateral perinephric fat stranding is also unchanged and is likely chronic. No hydronephrosis. No ureteral stones identified. Normal bladder. No retroper itoneal lymphadenopathy. Stable benign left adrenal adenoma. The spleen remains top normal in size. M oderate calcified plaque within the normal caliber abdominal aorta. The appendix is not identified an d reportedly surgically absent. Prior hysterectomy. Normal bladder. No pelvic free fluid. Suboptimal evaluation for bowel pathology due to the lack of intravenous and oral contrast. However, there is no definite bowel wall thickening or obstruction. Colonic diverticulosis. No evidence for acute diverti culitis. IMPRESSION: 1. No bowel wall thickening or obstruction. 2. Colonic diverticulosis. No evidence for acute diverticulitis. 3. Right-sided nephrolithiasis. No ureteral stones. No hydronephrosis. 4. Cholecystectomy, hysterectomy, and appendectomy. 5. Additional findings as described above. ACT 112: Negative or not required by law. Electronically signed by: Ananda Segovia M.D. 07/28/2020 5:22 PM
[2020-07-28 17:31] LABS: Albumin Globulin Ratio 0.9 (0.9-2); Alkaline Phosphatase 76 U/L (45-117); Bilirubin,Total 0.7 mg/dl (0.2-1); Globulin 3.6 gm/dl (2.5-4.0); Total Protein 6.9 gm/dl (6.4-8.2); Troponin I < 0.015 ng/ml (0-0.045)
--- NOTE | 2020-07-28 18:16 | History & Physical Report ---
Date of Service July 28, 2020 Assessment & Plan (1) Hypothyroidism: - Admit to med surg for observation - Continue on levothyroxine 50 mg IV to ensure she is absorbing it, hold PO for now. - Check random cortisol level now, hold off on any further steroids, recheck with a.m. cortisol level - Recommend endocrinology televisit, previously has followed with Dr. Kingston, was scheduled to have a cosyntropin stimulation test to check for adrenal insufficiency likely this week however her worsening fatigue nausea and poor appetite prompted her to return to the ER today. Cont pepcid IV for indigestion like complaints. Pt is passing bowels/gas and belching. - CT abd/pelvis reviewed: 1. No bowel wall thickening or obstruction. 2. Colonic diverticulosis. No evidence for acute diverticulitis. 3. Right-sided nephrolithiasis. No ureteral stones. No hydronephrosis. 4. Cholecystectomy, hysterectomy, and appendectomy. 5. Additional findings as described above. (2) Weakness: - Worsened since discharge on 07/21/20. As above - PT/OT consults (3) Lung cancer: - History of metastatic non-small cell lung cancer, currently on pembrolizumab (Keytruda). Last dose was administered on 07/10-concerned that hypopituitarism can result from therapy with this medication-she went to routine scheduled appointment with heme-onc today however was referred to the ER due to her state. - Will order nebs for now- to assist with getting nebulizer at home. (4) COPD (chronic obstructive pulmonary disease): - Continue theophylline, duo nebs as needed while here, pt does not have nebulizer machine at home. - Hs of using O2 concentrator at 2L HS previously, however reports her machine broke and that she hasn't used supplemental O2 in years. - Chronic - does not appear to be in acute exacerbation (5) COVID-19: - History of such, diagnosed on June 08, out of quarantine/isolation window. - CXR reviwed from today and is negative. - Repeat COVID-19 swab today negative. (6) Chronic renal failure, stage 3 (moderate): -History of such, creatinine 1.99, BUN 15, appears to be at baseline -Hold Lasix 20-was given 500 mL NSS in the ER (7) Hypertension: -Continue carvedilol 6.5 mg twice daily, holding Lasix (8) Diabetes: - Continue Januvia 50 mg daily - A1c 7.1 on 03/26, recheck with a.m. labs, follow glucose with BMP (9) Adrenal adenoma: Noted to be stable on CT scan this admission Follow-up with endocrinology (10) Depression: - Continue Zoloft 100 mg daily DVT PPx: - teds, scds CODE: Full Code Dispo: From home, likely to remain in the hospital x 1-2 days on observation PT/OT consults ordered History of Present Illness Primary Care Provider: Arthur Cruz The patient is a 74-year-old female with a PMHx of hypothyroidism, elevated LFTs, UTI, neutropenic fever, acute renal failure, pancytopenia, history of right knee surgery, CKD stage III, hypertension, depression, COPD, diabetes mellitus, arthritis, RUL pulmonary malignancy and COVID-19 diagnosed on 06/08/2020. She was hospitalized from 06/15-06/18 and then discharged to home. Since that time she has become progressively more fatigued, and has had intermittent nausea and vomiting. She was again hospitalized from 07/17-07/21 for progressive hypothyroidism with a TSH of 55.8 during last admission, which has improved to 24 with the increase of levothyroxine to 88 mcg daily. There was discussion with endocrinology and the care team determined that she would need only a small increase in levothyroxine for improvement. She had scheduled follow-up with endocrinology within 1 to 2 weeks for a cosyntropin stimulation test to check for adrenal insufficiency but has not yet been able to do so. She reports that she feels generalized fatigue, weakness, abdominal pain, nausea, decreased appetite which has worsened over the past few days. She is belching and passing gas. Denies issues with bowels or bladder. Pt was in to see her oncologist earlier today who saw how ill-appearing she was and sent her to the ER for evaluation. 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 She last took this medication July 10. Allergies Allergy/AdvReac Type Severity Reaction Status Date / Time adhesive Allergy Unknown PULLS SKIN Verified 07/28/20 18:49 OFF Penicillins Allergy Unknown TONGUE Verified 07/28/20 18:49 SWELLING azithromycin AdvReac Unknown Nausea Verified 07/28/20 18:49 Home Medications Medication Instructions Recorded Confirmed Type Combivent Respimat 1 puff INHALATION Q4H PRN 07/17/18 07/28/20 History carvedilol 6.25 mg PO BID 07/17/18 07/28/20 History folic acid 1 mg PO QAM 07/17/18 07/28/20 History hydrocodone-acetaminophen 1 tab PO BID PRN 07/17/18 07/28/20 History sertraline 100 mg PO QAM 07/17/18 07/28/20 History sitagliptin 50 mg PO QAM 07/17/18 07/28/20 History theophylline 300 mg PO BID 07/17/18 07/28/20 History esomeprazole magnesium 20 mg PO HS 06/28/20 07/28/20 History furosemide 20 mg PO DAILY PRN 06/28/20 07/28/20 History ondansetron HCl [Zofran] 4 mg PO Q6H PRN #6 tab 06/28/20 07/28/20 Rx levothyroxine 88 mcg PO DAILY #30 cap 07/21/20 07/28/20 Rx Past Med/Surg History Medical History (Updated 07/28/20 @ 23:02 by Ntaasha Manriquez MD) Adrenal adenoma Arthritis Chronic renal failure, stage 3 (moderate) COPD (chronic obstructive pulmonary disease) Depression Diabetes Hypothyroidism (acquired) Lung cancer Neutropenic fever Orthostatic hypotension Right knee DJD Surgical History Hx of right knee surgery Family History Other Diabetes Heart disease Hypertension Lung disease Social History Smoking Status: Current every day smoker Tobacco Type: Cigarettes Second Hand Exposure: No; Hx Alcohol Use: No Hx Substance Use: No Preferred Language: Greek Communication Ability: Effective Cellar Pumper Required: No Beliefs That Will Affect Care: None marital status: / Current Living Situation: Family Current Living Situation Comment: llives with granddaughter How many Children do You have: 3 Other Information That Helps Us Care for You: No Feels Safe at Home: Yes Safety Concerns: Feels Safe At This Time Assistive Devices: Oxygen - Continuous Assistive Devices Comment: oxygen prn at home Review of Systems Review of Systems: Constitutional: No fever, sweats or chills, + generalized fatigue, malaise. Eyes: No diplopia, no worsening or blurred vision ENT: normal hearing, no trouble swallowing Respiratory: No cough, sputum, dyspnea at rest or on exertion Cardiovascular: No chest pain, tightness or palpitations Abdomen: + generalized abd pain, poor appetite, nausea, no vomiting, diarrhea or constipation Musculoskeletal: No joint pain, calf pain, swelling Neurologic: + weakness, numbness/tingling, or balance problems Psychiatric: No anxiety or depression Skin: No rash or itch Physical Exam Physical Exam: General: awake, alert, + ill-appearing, obese, BMI 33.4 Head: Normocephalic, atraumatic ENT: PERRL, EOMI, no pharyngeal exudate, + mucous membranes dry Chest: On room air, diffuse expiratory wheeze throughout, diminished breath sounds, + rales throughout. Cardiac: Regular rate and rhythm, no murmur, no JVD, normal peripheral pulses, good capillary refill Abdominal: NABS x 4 quadrants, soft, nondistended, + generalized tenderness more so in the epigastric region, no rebound or guarding Extremities: Normal inspection, no peripheral edema or erythema, calfs nontender to palpation Psych: Normal mood and affect Neuro: AAO x 3, strength intact bilaterally and rated 5/5, no motor deficits, speech is clear, no peripheral sensory deficits Results & Data Results & Data ([facility]) Vital Signs (Past 12 Hours) Vital Signs Temp Pulse Pulse Resp BP BP Pulse Ox 07/28/20 17:00 72 18 114/67 92 07/28/20 16:07 73 74 16 113/74 93 07/28/20 15:49 36.0 C L 80 18 105/67 95 Diagnostic Findings XR chest 1V portable CLINICAL HISTORY: weakness COMPARISON STUDY: 07/17/2020 FINDINGS: The heart is the upper limits of normal in size. There is no lobar consolidation. There is mild thickening of the minor fissure. There are linear basilar opacities likely representing subsegmental atelectatic change. There is a 19 mm[right upper lung zone pulmonary nodule, corresponding to the patient's known carcinoma. IMPRESSION: 1. 19 mm right upper lung zone pulmonary mass, corresponding to the patient's known carcinoma 2. Areas of right lung atelectasis 3. No evidence of pulmonary consolidation to indicate pneumonia ABDOMEN AND PELVIS CT WITHOUT CONTRAST CT DOSE: 1087.68 mGy.cm HISTORY: L sided and lower abd pain, nausea TECHNIQUE: Multiaxial CT images of the abdomen and pelvis were performed without contrast. A dose lowering technique was utilized adhering to the principles of ALARA. COMPARISON STUDY: Abdomen and pelvis CT 07/17/2020. FINDINGS: A few bibasilar linear densities within the lung bases consistent with subsegmental atelectasis. No pneumoperitoneum. No pneumatosis. No fractures within the visualized osseous structures. Cholecystectomy. The unenhanced liver, right adrenal gland, and pancreas unremarkable. There is a punctate nonobstructing stone within the right kidney. There are few subcentimeter bilateral renal hyperdense and hyperdense lesions. These are incompletely characterized on this noncontrast study but favor cysts. These are not significantly changed. Mild bilateral perinephric fat stranding is also unchanged and is likely chronic. No hydronephrosis. No ureteral stones identified. Normal bladder. No retroperitoneal lymphadenopathy. Stable benign left adrenal adenoma. The spleen remains top normal in size. Moderate calcified plaque within the normal caliber abdominal aorta. The appendix is not identified and reportedly surgically absent. Prior hysterectomy. Normal bladder. No pelvic free fluid. Suboptimal evaluation for bowel pathology due to the lack of intravenous and oral contrast. However, there is no definite bowel wall thickening or obstruction. Colonic diverticulosis. No evidence for acute diverticulitis. IMPRESSION: 1. No bowel wall thickening or obstruction. 2. Colonic diverticulosis. No evidence for acute diverticulitis. 3. Right-sided nephrolithiasis. No ureteral stones. No hydronephrosis. 4. Cholecystectomy, hysterectomy, and appendectomy. 5. Additional findings as described above. ECG Additional Comments: 28-JUL-2020 16:11:36 [facility]-EDSTAT ROUTINE RETRIEVAL Poor data quality, interpretation may be adversely affected Normal sinus rhythm Normal ECG When compared with ECG of 17-JUL-2020 13:33, Nonspecific T wave abnormality, improved in Inferior leads Nonspecific T wave abnormality, improved in Lateral leads 25mm/s 10mm/mV 150Hz 9.0.9 12SL 241 FERNANDO: 11 Unconfirmed Vent. rate 70 BPM ND interval 154 ms QRS duration 92 ms QT/QTc 394/425 ms Code Status & VTE Plan Code Status Full code-discussed with the patient at bedside Supervising Physician Co-Signing Physician Notes PA Supervision Note: I personally saw and examined the patient. I verified all sams points and agree with RON Barnes with the following exceptions and/or additions: Pt presents with worsening weakness, poor appetite, and vague left sided abdominal pain over the last week since discharge from the hospital for a similar presentation. She reports feeling much improved last admission after receiving IV hydrocortisone. This was held so she could undergo further Endocrin e testing as an outpatient to include Cosyntropin stim test. Her appt with Endocrine is scheduled for this Tuesday. She is taking her meds as prescribed and only new change was an increase in LT4 to 88mcg from 75mcg. TSH is improved. Not lightheaded, no chest pain. Does have chronic SOB from COPD. No N/V, no diarrhea. Abd pain was resolved when I saw her. History and ROS reviewed as above6 Vitals reviewed Gen: AAOx3, NAD, obese HEENT: Anicteric sclerae, EOMI CV: RRR no mgr nl S1S2 Pulm: CTAB no wcr Abd: +BS soft NT ND no masses or hernias Ext: No edema, no calf tenderness Skin: No rashes, warm/dry Neuro: Full strength throughout Laboratory values reviewed CT abdomen/pelvis reviewed Chest x-ray reviewed This patient is a 75-year-old female with a history of lung cancer, hypothyroidism, CKD stage III, HTN, depression, COPD, DM 2, here with recurrence of significant generalized fatigue, anorexia, and generalized weakness. Remains significantly hypothyroid, and random cortisol still significantly low, however it has only been 9-10 days since she did receive stress test steroids with IV hydrocortisone during last admission. Is unclear if the cortisol is still suppressed from the exogenous steroids received during the last admission. There is suspicion that her Keytruda has caused hypopituitarism She would benefit greatly from endocrinology consultation again during this admission. We will hold off on any steroids at this point as this could worsen future testing and she is not unstable at this time-appreciate further endocrinology input on this Add insulin sliding scale and Accu-Cheks, continue Januvia while here. PT/OT consults to be placed We will give IV levothyroxine 50 mcg every 3 days while here PG Care Time/CCT Total # of Minutes Spent Total Time Spent with Patient: Total time spent is greater than 50% in coordination of care (as documented) at patient's floor/unit and/or counseling patient: Coding Level of Care Code 05512 OBS Care - Level 3 Diagnoses Hypothyroidism E03.9 Weakness R53.1 Lung cancer C34.90 COPD (chronic obstructive pulmonary disease) J44.9 COVID-19 U07.1 Chronic renal failure, stage 3 (moderate) N18.3 Hypertension I10 Diabetes E11.9 Adrenal adenoma D35.00 Depression F32.9
[2020-07-28] MEDS ORDERED: IPRATROPIUM BROMIDE/ALBUTEROL respimat INH INH PRN (19:35)
[2020-07-28] MEDS ORDERED: ONDANSETRON INJ 2 MG/ML 2 ML VIAL IV PRN (19:35)
[2020-07-28] MEDS ORDERED: HYDROcodone/ACETAMINOPHEN 10/325 TAB PO PRN (19:35)
[2020-07-28] MEDS ORDERED: ACETAMINOPHEN 325 MG TAB PO PRN (19:35)
[2020-07-28] MEDS ORDERED: ONDANSETRON 4 MG OD TAB PO PRN (19:39)
[2020-07-28] MEDS: ALBUT/IPRATROP 3MG/0.5MG NEB 3 ML VIAL NEB SCH ×2 (19:53→23:16)
[2020-07-28] MEDS ORDERED: CARBOHYDRATES FOR HYPOGLYCEMIA PO PRN (19:56)
[2020-07-28] MEDS ORDERED: GLUCAGON FOR INJ 1 MG VIAL SQ PRN (19:56)
[2020-07-28] MEDS ORDERED: GLUCOSE 40% GEL 15 GM TUBE PO PRN (19:56)
[2020-07-28] MEDS ORDERED: DEXTROSE 50% 50 ML SYRINGE IV PRN (19:56)
[2020-07-28] MEDS ORDERED: GLUCOSE 10 TABS/TUBE PO PRN (19:56)
[2020-07-28] MEDS: THEOPHYLLINE 300MG EXTENDED REL TAB PO SCH (21:05)
[2020-07-28] MEDS: carvediloL 6.25 MG TAB PO SCH (21:05)
[2020-07-28] MEDS: INSULIN ASPART 100 UNITS/ML 3 ML PEN SC SCH (21:06)
[2020-07-28] MEDS: PANTOprazole 40 MG TAB PO SCH (21:08)
[2020-07-29] MEDS: ALBUT/IPRATROP 3MG/0.5MG NEB 3 ML VIAL NEB SCH ×6 (03:53→22:50)
[2020-07-29 07:09] LABS: Hematocrit (blood only) 33.3 % (37-47); Hemoglobin 10.7 g/dL (12.0-16.0); Mean Corpuscular Hemoglobin 29.3 pg (25-34); Mean Corpuscular Hgb Conc 32.1 g/dL (32-36); Mean Corpuscular Volume 91.2 fL (80-100); Mean Platelet Volume 9.5 fL (7.4-10.4); Platelet Count 137 K/uL (130-400); RDW Coefficient of Variation 17.2 % (11.5-14.5); RDW Standard Deviation 58.4 fL (36.4-46.3); Red Blood Count 3.65 M/uL (4.2-5.4); White Blood Count 4.34 K/uL (4.8-10.8)
[2020-07-29 07:45] LABS: Albumin Level 3.1 gm/dl (3.4-5.0); Calcium 8.9 mg/dl (8.5-10.1); Creatinine Clr Calc Pharmacy 30.7 ml/min; Est GFR (African American) 31.1; Est GFR (Non-African American) 26.9; Potassium 3.9 mmol/L (3.5-5.1)
[2020-07-29 07:47] LABS: Albumin Globulin Ratio 0.9 (0.9-2); Bilirubin,Total 1.1 mg/dl (0.2-1); Globulin 3.4 gm/dl (2.5-4.0); Total Protein 6.5 gm/dl (6.4-8.2)
[2020-07-29] MEDS: THEOPHYLLINE 300MG EXTENDED REL TAB PO SCH ×2 (08:06→20:35)
[2020-07-29] MEDS: carvediloL 6.25 MG TAB PO SCH ×2 (08:06→20:35)
[2020-07-29] MEDS: FOLIC ACID 1 MG TAB PO SCH (08:06)
[2020-07-29] MEDS: SITagliptin PHOSPHATE 25 MG TAB PO SCH (08:06)
[2020-07-29] MEDS: SERTRALINE HCL 100 MG TABLET PO SCH (08:06)
[2020-07-29] MEDS: FAMOTIDINE 20 MG in SYRINGE 3 ML IV SCH (08:07)
[2020-07-29] MEDS: INSULIN ASPART 100 UNITS/ML 3 ML PEN SC SCH ×4 (08:07→20:35)
[2020-07-29 08:10] LABS: Estimated Average Glucose 166 mg/dl; Hemoglobin A1C 7.4 % (4.5-5.6)
--- NOTE | 2020-07-29 08:19 | Hospitalist Progress Note ---
Date of Service July 29, 2020 Assessment & Plan (1) Hypothyroidism: - Admit - Continue on levothyroxine 50 mg IV to ensure she is absorbing it, continue to hold PO for now. - random cortisol level low, a.m. cortisol level low will do cosyntropin test in am 1/13 and give one dose of dexamethasone - Recommend endocrinology televisit, previously has followed with Dr. Kingston, Cont pepcid IV for indigestion like complaints. Pt is passing bowels/gas and belching. - CT abd/pelvis reviewed: 1. No bowel wall thickening or obstruction. 2. Colonic diverticulosis. No evidence for acute diverticulitis. 3. Right-sided nephrolithiasis. No ureteral stones. No hydronephrosis. 4. Cholecystectomy, hysterectomy, and appendectomy. 5. Additional findings as described above. (2) Weakness: - Worsened since discharge on 07/21/20. As above - PT/OT consults likely will need steroid replacement (3) Lung cancer: - History of metastatic non-small cell lung cancer, currently on pembrolizumab (Keytruda). Last dose was administered on 07/10-concerned that hypopituitarism can result from therapy with this medication-she went to routine scheduled appointment with heme-onc and was referred to the ER due to her state. will discuss Keytruyda if cortisol is supressed (4) COPD (chronic obstructive pulmonary disease): - Stable Continue theophylline, duo nebs as needed while here, pt does not have nebulizer machine at home. - Hs of using O2 concentrator at 2L HS previously, however reports her machine broke and that she hasn't used supplemental O2 in years. - Chronic - does not appear to be in acute exacerbation (5) COVID-19: - History of such, diagnosed on June 08, out of quarantine/isolation window. - CXR reviwed from today and is negative. - Repeat COVID-19 swab today negative. (6) Chronic renal failure, stage 3 (moderate): -History of such, creatinine 1.99, BUN 15, appears to be at baseline -Hold Lasix 20-was given 500 mL NSS in the ER, may resume lasix at discharge (7) Hypertension: -Continue carvedilol 6.5 mg twice daily, holding Lasix (8) Diabetes: - Continue Januvia 50 mg daily - A1c 7.1 on 03/26, recheck with a.m. labs, follow glucose with BMP (9) Adrenal adenoma: Noted to be stable on CT scan this admission Follow-up with endocrinology (10) Depression: - Continue Zoloft 100 mg daily DVT PPx: - teds, scds CODE: Full Code PT/OT consults ordered Admission and Anticipated Discharge Date Admission Date: July 28, 2020 Subjective pt is doing ok ,she seems nervous, she is willing to wait for cosyntropin test given her low random am cortisol Review of Systems Review of Systems: Moderate distress and fatigue no headache, blurry or double vision no speech or swallowing issues no chest pain, pressure or palpitations no shortness of breath, cough or wheezes no abdominal pain, mild nausea but no vomiting no dysuria, hematuria or frequency no focal joint pain or swelling no back pain, CVA tenderness or radicular pain no bruising, bleeding or rashes no focal signs of weakness or numbness or altered sensation no complaints of anxiety or depression.. Physical Exam Physical Exam: The patient appeared well nourished and normally developed. Mild distress Vital signs as documented. Head exam is normocephalic atraumatic no scleral icterus Neck is without JVD, thyromegaly, or carotid bruits. Lungs are clear to auscultation, no focal loss of breath sounds Cardiac exam, Rhythm is regular.. No murmurs, rubs or gallops. Abdominal exam reveals normal bowel sounds, soft non tender, no masses Extremities are nonedematous and both pedal pulses are present Neurologic exam is alert and oriented, no focal loss of strength or sensation Skin is without bruises or rashes Psychologically is with concerns for anxiety Results & Data Results & Data ([facility]) Vital Signs (Past 12 Hours) Vital Signs Temp Pulse Resp BP Pulse Ox Pulse Ox 07/29/20 07:37 73 16 90 07/29/20 07:08 98.2 F 74 18 114/69 91 07/29/20 00:00 91 07/28/20 23:42 99.0 F 74 18 116/70 91 07/28/20 23:18 72 16 93 07/28/20 21:04 71 113/71 PG Care Time/CCT Total # of Minutes Spent Total Time Spent with Patient: Total time spent is greater than 50% in coordination of care (as documented) at patient's floor/unit and/or counseling patient: Coding Level of Care Code 07835 Subseq Hosp Care Lvl 3 Diagnoses Hypothyroidism E03.9 Weakness R53.1 Lung cancer C34.90 COPD (chronic obstructive pulmonary disease) J44.9 COVID-19 U07.1 Chronic renal failure, stage 3 (moderate) N18.3 Hypertension I10 Diabetes E11.9 Adrenal adenoma D35.00 Depression F32.9
[2020-07-29] MEDS ORDERED: COSYNTROPIN 1 MCG in SYRINGE 0 ML IV ONE (08:35)
[2020-07-29] MEDS ORDERED: Nursing to Pharmacy Communication SCH (10:00)
[2020-07-29] MEDS ORDERED: dexAMETHasone 2 MG in SYRINGE 0 ML IV ONE (12:45)
--- NOTE | 2020-07-29 13:56 | Electrocardiogram Report ---
Test Reason : Blood Pressure : / mmHG Vent. Rate : 070 BPM Atrial Rate : 070 BPM P-R Int : 154 ms QRS Dur : 092 ms QT Int : 394 ms P-R-T Axes : 085 -03 033 degrees QTc Int : 425 ms Poor data quality, interpretation may be adversely affected Normal sinus rhythm Diffuse Nonspecific T wave abnormality Abnormal ECG When compared with ECG of 17-JUL-2020 13:33, Nonspecific ST abnormality Anteroseptal leads no longer present Otherwise no significant change Confirmed by Marlo Quick ([id number]) on 07/29/2020 1:56:36 PM Referred By: Confirmed By:Marlo Quick
[2020-07-29 14:52] LABS: Appearance Urine Cloudy (Clear); Bacteria Urine Automated 1+ (Negative); Bilirubin Urine Negative (Negative); Blood Urine Negative (Negative); Color Urine Dark Yellow; Epithelial Cell Urine Auto >30 /lpf (0-5); Glucose Urine UA Negative (Negative); Ketones Urine Negative (Negative); Leukocyte Esterase Urine Negative (Negative); Nitrite Urine Negative (Negative); Protein Urine Negative (Negative); Specific Gravity Urine 1.017 (1.000-1.030); Urobilinogen Urine Negative (Negative); pH Urine 5.5 (4.5-7.5)
[2020-07-29 15:07] LABS: RBC Urine Automated 0-4 /hpf (0-4)
[2020-07-29] MEDS: PANTOprazole 40 MG TAB PO SCH (20:35)
[2020-07-30] MEDS: ALBUT/IPRATROP 3MG/0.5MG NEB 3 ML VIAL NEB SCH ×2 (03:18→07:20)
[2020-07-30] MEDS ORDERED: COSYNTROPIN 1 MCG in SYRINGE 0 ML IV ONE ×2 (07:00→08:00)
[2020-07-30 08:04] LABS: Hematocrit (blood only) 31.3 % (37-47); Hemoglobin 10.8 g/dL (12.0-16.0); Mean Corpuscular Hemoglobin 30.7 pg (25-34); Mean Corpuscular Hgb Conc 34.5 g/dL (32-36); Mean Corpuscular Volume 88.9 fL (80-100); Mean Platelet Volume 10.2 fL (7.4-10.4); Nucleated RBC # (auto) 0.02 K/uL (0-0); Nucleated RBC % (auto) 0.3 %; Platelet Count 164 K/uL (130-400); RDW Coefficient of Variation 16.9 % (11.5-14.5); RDW Standard Deviation 55.8 fL (36.4-46.3); Red Blood Count 3.52 M/uL (4.2-5.4); White Blood Count 4.67 K/uL (4.8-10.8)
[2020-07-30] MEDS: FAMOTIDINE 20 MG in SYRINGE 3 ML IV SCH (08:16)
[2020-07-30 08:34] LABS: Albumin Level 3.1 gm/dl (3.4-5.0); BUN Creatinine Ratio 8.9 (10-20); Calcium 9.6 mg/dl (8.5-10.1); Creatinine Clr Calc Pharmacy 28.8 ml/min; Est GFR (African American) 28.8; Est GFR (Non-African American) 24.9; Potassium 4.1 mmol/L (3.5-5.1)
[2020-07-30 08:37] LABS: Albumin Globulin Ratio 0.9 (0.9-2); Bilirubin,Total 0.7 mg/dl (0.2-1); Globulin 3.6 gm/dl (2.5-4.0); Total Protein 6.7 gm/dl (6.4-8.2)
[2020-07-30] MEDS: FOLIC ACID 1 MG TAB PO SCH (09:08)
[2020-07-30] MEDS: SITagliptin PHOSPHATE 25 MG TAB PO SCH (09:08)
[2020-07-30] MEDS: SERTRALINE HCL 100 MG TABLET PO SCH (09:08)
[2020-07-30] MEDS: carvediloL 6.25 MG TAB PO SCH (09:08)
[2020-07-30] MEDS: THEOPHYLLINE 300MG EXTENDED REL TAB PO SCH (09:08)
[2020-07-30] MEDS: INSULIN ASPART 100 UNITS/ML 3 ML PEN SC SCH ×2 (09:11→12:23)
[2020-07-30] MEDS ORDERED: ALBUT/IPRATROP 3MG/0.5MG NEB 3 ML VIAL NEB PRN (10:08)
--- NOTE | 2020-07-30 18:01 | Discharge Summary ---
Date of Service July 30, 2020 Admission HPI Per Admitting Provider The patient is a 74-year-old female with a PMHx of hypothyroidism, elevated LFTs, UTI, neutropenic fever, acute renal failure, pancytopenia, history of right knee surgery, CKD stage III, hypertension, depression, COPD, diabetes mellitus, arthritis, RUL pulmonary malignancy and COVID-19 diagnosed on 06/08/2020. She was hospitalized from 06/15-06/18 and then discharged to home. Since that time she has become progressively more fatigued, and has had intermittent nausea and vomiting. She was again hospitalized from 07/17-07/21 for progressive hypothyroidism with a TSH of 55.8 during last admission, which has improved to 24 with the increase of levothyroxine to 88 mcg daily. There was discussion with endocrinology and the care team determined that she would need only a small increase in levothyroxine for improvement. She had scheduled follow-up with endocrinology within 1 to 2 weeks for a cosyntropin stimulation test to check for adrenal insufficiency but has not yet been able to do so. She reports that she feels generalized fatigue, weakness, abdominal pain, nausea, decreased appetite which has worsened over the past few days. She is belching and passing gas. Denies issues with bowels or bladder. Pt was in to see her oncologist earlier today who saw how ill-appearing she was and sent her to the ER for evaluation. 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 She last took this medication July 10. Principal Diagnosis adrenal suppression thyroid suppression Discharge Exam The patient appeared well feels much better after steroid administration Vital signs as documented. Lungs are clear to auscultation and appear unlabored Cardiac exam, Rhythm is regular.. No murmurs, rubs or gallops. Abdominal exam reveals normal bowel sounds, soft non tender, no masses Extremities are nonedematous and both pedal pulses are normal. Neurologic exam is alert and oriented, no focal loss of strength or sensation Skin is without bruises or rashes Psychologically is without concerns for anxiety or depression. Discharge Data Allergies Allergy/AdvReac Type Severity Reaction Status Date / Time adhesive Allergy Unknown PULLS SKIN Verified 07/28/20 18:49 OFF Penicillins Allergy Unknown TONGUE Verified 07/28/20 18:49 SWELLING azithromycin AdvReac Unknown Nausea Verified 07/28/20 18:49 Consultations 07/28/20 18:08 ED Decision to Admit Stat 07/28/20 19:35 Consult Case Management - Discharge Planning Routine Ordered Studies 07/28/20 16:13 CT abd pelvis wo con Stat Hospital Course (1) Hypothyroidism: [place] likely be secondary to Keytruda - Continue on levothyroxine will follow with endocrinology - random cortisol level low, a.m. cortisol level low will do cosyntropin test in am 07/30 have some mild improvement although speaking with Dr. Kingston recommends initiating hydrocortisone therapy 20 the morning 10 at night with close follow-up as an outpatient - CT abd/pelvis reviewed: 1. No bowel wall thickening or obstruction. 2. Colonic diverticulosis. No evidence for acute diverticulitis. 3. Right-sided nephrolithiasis. No ureteral stones. No hydronephrosis. 4. Cholecystectomy, hysterectomy, and appendectomy. 5. Additional findings as described above. (2) Weakness: -Much improved with steroid replacement (3) Lung cancer: - History of metastatic non-small cell lung cancer, currently on pembrolizumab (Keytruda). Last dose was administered on 07/10-concerned that hypopituitarism can result from therapy with this medication-she went to routine scheduled appointment with heme-onc and was referred to the ER due to her state. will discuss Keytruyda with Dr. Simon at his appointment however speaking with Dr. Kingston this is likely a permanent phenomena and if Keytruda is beneficial to the patient this may be continued (4) COPD (chronic obstructive pulmonary disease): - Stable Continue home therapy (5) COVID-19: - History of such, diagnosed on June 08, out of quarantine/isolation window. - CXR reviwed from today and is negative. - Repeat COVID-19 swab today negative. (6) Chronic renal failure, stage 3 (moderate): -History of such, creatinine 1.99, BUN 15, appears to be at baseline -may resume lasix at discharge (7) Hypertension: -Continue carvedilol 6.5 mg twice daily, Lasix (8) Diabetes: - Continue Januvia 50 mg daily - A1c 7.1 on 03/26, reinforced dietary control especially with initiating steroids (9) Adrenal adenoma: Noted to be stable on CT scan this admission Follow-up with endocrinology (10) Depression: - Continue Zoloft 100 mg daily CODE: Full Code Total Time Total Time Spent Total Time Spent (In Minutes): It required greater than 30 minutes to prepare this patient for discharge Discharge Plan Discharge Items Patient Disposition: Home - Self-Care Reason For Visit: CHEST PAIN Discharge Diagnosis: adrenal supression Activity: Resume your previous activity Non-emergency contact: Primary Care Provider and Specialist Call non-emergency contact if: your symptoms worsen Follow-up/Referrals: Mal Kingston MD [Physician] - 08/05/20 10:00 am (Your appointment with Dr Kingston is on August 05. If you need to change this appointment, please call [phone].) Arthur Cruz [Primary Care Provider] - Diet: Regular Addtl Attending Provider Instructions: please follow up with Dr Kingston on 08/02/20 Your Keytruda likely has suppressed your adrenal gland making cortisol. We are prescribing hydrocortisone to try to help make you feel better and replaced this hormone. It is important you follow-up with Dr. Kingston to further discuss your strategy in treating this issue. Likewise your thyroid medicine needs to be continued. May discuss with Dr. Tinsley and Dr. Simon about whether your Keytruda should be continued if it is beneficial to your cancer treatment Pending Studies at Discharge: No Stand-Alone Forms: My [facility] [place] [place], Smoking Cessation Medications and DC Order Prescriptions: New hydrocortisone 10 mg tablet 10 mg PO UD Qty: 90 RF: 5 Continued carvedilol 6.25 mg tablet 6.25 mg PO BID RF: 0 sertraline 100 mg tablet 100 mg PO QAM RF: 0 hydrocodone-acetaminophen 10-325 mg tablet 1 tab PO BID PRN (Reason: Pain, Severe) RF: 0 theophylline 300 mg tablet extended release 12 hr 300 mg PO BID RF: 0 folic acid 1 mg tablet 1 mg PO QAM RF: 0 sitagliptin 50 mg tablet 50 mg PO QAM RF: 0 Combivent Respimat 20-100 mcg/actuation Mist 1 puff INHALATION Q4H PRN (Reason: Shortness Of Breath Or Wheezing) RF: 0 furosemide 20 mg tablet 20 mg PO DAILY PRN (Reason: Swelling) RF: 0 esomeprazole magnesium 20 mg capsule,delayed release(/EC) 20 mg PO HS RF: 0 ondansetron HCl [Zofran] 4 mg tablet 4 mg PO Q6H PRN (Reason: nausea and vomiting) Qty: 6 RF: 0 levothyroxine 88 mcg capsule 88 mcg PO DAILY Qty: 30 RF: 0 Discharge Orders: Discharge Order (Routine); Ordered 07/30/20 Ordered By: Tyron Topete/Other Patient Handouts: Secondary Adrenal Insufficiency, Managing Type 2 Diabetes Admission Data Admit Date/Time: 07/28/20 18:21 Attending Provider: Tyron López Admit Provider: Natasha Manriquez Primary Care Provider: Arthur Cruz Other Providers: Natasha Manriquez Other Interventions: Discharge Summary Assessment (RN) Last Done: 07/30/20 15:45 Coding Level of Care Code D/C Day Management >30 mins Diagnoses Hypothyroidism E03.9 Weakness R53.1 Lung cancer C34.90 COPD (chronic obstructive pulmonary disease) J44.9 COVID-19 U07.1 Chronic renal failure, stage 3 (moderate) N18.3 Hypertension I10 Diabetes E11.9 Adrenal adenoma D35.00 Depression F32.9
[2020-07-31] MEDS ORDERED: LEVOTHYROXINE SODIUM 50 MCG in SYRINGE 0 ML IV SCH (09:00)
== END 2020-07-30 16:55 | disposition home or self-care (01) ==
LOC: 2N 15:43 → ED 15:43 → SUATTDRO 18:21 → 2N 19:29

== ENCOUNTER 2021-01-15 21:20 | Observation (INO) ==
[2021-01-15 21:40] LABS: Basophils # (auto) 0.02 K/uL (0-0.2); Basophils % (auto) 0.2 %; Eosinophils # (auto) 0.65 K/uL (0-0.5); Eosinophils % (auto) 7.7 %; Hematocrit (blood only) 39.9 % (37-47); Hemoglobin 13.2 g/dL (12.0-16.0); Immature Granulocytes # (auto) 0.03 K/uL (0.00-0.02); Immature Granulocytes % (auto) 0.4 %; Lymphocytes # (auto) 1.95 K/uL (1.2-3.4); Mean Corpuscular Hemoglobin 29.2 pg (25-34); Mean Corpuscular Hgb Conc 33.1 g/dL (32-36); Mean Corpuscular Volume 88.3 fL (80-100); Mean Platelet Volume 10.8 fL (7.4-10.4); Monocytes # (auto) 0.48 K/uL (0.11-0.59); Monocytes % (auto) 5.7 %; Neutrophils # (auto) 5.36 K/uL (1.4-6.5); Platelet Count 154 K/uL (130-400); RDW Coefficient of Variation 15.7 % (11.5-14.5); RDW Standard Deviation 50.6 fL (36.4-46.3); Red Blood Count 4.52 M/uL (4.2-5.4); White Blood Count 8.49 K/uL (4.8-10.8)
[2021-01-15 22:12] LABS: Alanine Aminotransferase 19 U/L (12-78); Albumin Globulin Ratio 1.1 (0.9-2); Albumin Level 3.7 gm/dl (3.4-5.0); Alkaline Phosphatase 83 U/L (45-117); Aspartate Aminotransferase 15 U/L (15-37); BUN Creatinine Ratio 15.8 (10-20); Bilirubin,Total 0.4 mg/dl (0.2-1); Blood Urea Nitrogen 29 mg/dl (7-18); Calcium 8.9 mg/dl (8.5-10.1); Carbon Dioxide 26 mmol/L (21-32); Chloride 109 mmol/L (98-107); Creatinine Clr Calc Pharmacy 31.7 ml/min; Est GFR (African American) 31.1 ml/min; Est GFR (Non-African American) 26.9 ml/min; Globulin 3.5 gm/dl (2.5-4.0); Glucose 150 mg/dl (70-99); Magnesium 1.9 mg/dl (1.8-2.4); Potassium 3.8 mmol/L (3.5-5.1); Sodium 140 mmol/L (136-145); Total Protein 7.2 gm/dl (6.4-8.2)
[2021-01-15 22:26] LABS: T4 Free Thyroxine 0.84 ng/dl (0.8-1.6)
[2021-01-15] MEDS ORDERED: SODIUM CHLORIDE 0.9% 500 ML IV ONE (23:10)
--- NOTE | 2021-01-15 23:15 | Emergency Department Note ---
Impression & Plan Syncope, COPD (chronic obstructive pulmonary disease), Acute dehydration, Abdominal pain, acute, epigastric ED Provider Note Name: FELISA SCHWAB Age: 75 Sex: F Arrives Via: Ambulance Informant: Patient ED Provider: Ron Burton MD Chief Complaint: near syncope Impression: Syncope COPD Acute Dehydration Acute Epigastric Abdominal Pain Medical Decision Makin yr old female with COPD, Lung CA, smoker, who arrives following which she states is near syncope, but she has no actual memory of when she passed out. She is a bit on dehydrated side and notes ongoing epigastric pain for the last 2 weeks. Very uncomfortable with palpation of epigastrium. Does note some substernal discomfort prior to syncope. Arrives with diffuse wheezing on exam which she notes is normal for her. She denies headache, neck pain, neuro deficits. Vitals unremarkable on arrival. Given NSS bolus and CT obtained of abdomen which is negative. CXR clear. Ekg without ischemia and initial trop negative. Small pericardial effusion on CT non specific and unlikely cause of this episode. Did receive neb for copd though will hold off on steroids at this time as she states breathing is at baseline. Hospitalist consuslted given syncopal episode. No clear etiology of epigastric pain, though given multiple other issues this may represent gastritis/pud. With normal EKG, normal trop and other issues I suspect this is not primarily ACS and will hold off on ASA, especially given possible gastric issue. Prior Medical Record and Triage/Nursing Notes reviewed by Me Additional history obtained from chart Differentials:Vasovagal event, dehydration, infection, hypoglycemia, electrolyte abnormalities, cardiac sources, intracerebral event, pulmonary embolism, seizure, toxicologic, neurologic, as well as other pathologies. Vital Signs: reviewed and remarkable for no significant abnormalities Interventions: saline lock, nss bolus, duoneb Labs:Reviewed and remarkable for no significant abnormalities Imaging:X ray results are stated below per my interpretation: Chest: 1 view: No infiltrate, no effusion, normal cardiac border. [facility] Radiologist interpretation reviewed by me: ct a/p wo con: "CT ABDOMEN & PELVIS Without Contrast: Very small pericardial effusion. Previous cholecystectomy. No evidence of hydronephrosis or ureteral calculus. No evidence of bowel obstruction. Diverticulosis without diverticulitis. Radiologist: Lokesh Harrison MD" EKG:Per My Interpretation: Indication Syncope: NSR 78 bpm, qtc 430 poor basel ine. No Ectopy. No Ischemia. Compared to EKG 07/28/20, no significant changes. Cardiac/Tele Monitoring: Cardiac Monitoring: An Order was placed for continuous cardiac monitoring. The monitor shows a rate of 75 with a normal sinus rhythm. Consults:Dr Geeta RUBIN Hospitalist Plan: Disposition:Hospitalization. Referred to: PCP Condition: Good History of Present Illness:75 yr old female arrives for evaluation of syncope. Patient sitting at [employer] this evening and noticed worsening substernal chest pressure. No radiation. Associated with nausea, lightheadedness and p alpitations. She notes vision started going black and she apparently collapsed in chair. Per standerby she notes patient was very groggy, but patient notes no memory of what happened. When patient came too EMS was there. She apparently was diaphoretic and pale appearing. Given Zofran 4mg IV and NSS bolus 200mL en route with resolution of symptoms. Currently patient notes some shortness of br eath and cough which has been ongoing for several weeks and she notes it is similar to previous COPD issues. She has also been having 2 weeks of epigastric discomfort. This started after she had Chemo for her lung cancer. She notes no issues with eating. No radiation of epigastric pain. Denies other abdominal pain. She has chronic diarrhea. Denies NSAID/ETOH use. No trauma nor injuries. Pressing on stomach makes pain worse, rest makes better. No previous evaluation for this abdominal pain. Patient is daily smoker with COPD and Lung CA on Chemo. Declines any pain medications ROS: See above HPI for pertinent positives & negatives. A total of 10 systems reviewed and were otherwise negative. Past Medical History:See Below Past Surgical History:See Below Family History:See Below Social History:See Below Home Medications:See Below Allergies:PNC, Azithro Vitals:Blood Pressure: 150/87, Pulse 66, RR 18, T 36.9C, O2 94% on RA Physical Exam: GENERAL: Patient is chronically unwell and pale appearing and in mild distress. Dehydrated appearing EYES: No scleral icterus, unremarkable pupils. ENT: Mucous membranes dry, no nasal congestion. NECK: No masses appreciated, nomeningismus, trachea is midline. RESPIRATORY: Mild dyspnea with diffuse wheezing all lung hall CARDIOVASCULAR: Regular rate and rhythm.No murmurs, rubs, gallops appreciated. GASTROINTESTINAL: Moderate TTP epigastrium, otherwise abdomen soft, non-tender, no peritonitis.Bowel sounds positive.No masses appreciated. BACK: No midline tenderness, no CVA tenderness EXTREMITIES: Normal motion all extremities, no cyanosis, no edema. NEUROLOGIC: Alert and oriented, no acute motor or sensory deficits, no focal weakness, cranial nerves grossly intact. SKIN: Pale, dry, No rash, no jaundice, no diaphoresis. PSYCH: Appropriate GCS: 15 ED Course: Times/Reassessments: feeling better after IV fluids, no further chest pains, syncope. Still with no specific epigastric discomfort Ron Burton MD Past Med/Surg History Medical History (Updated 01/16/21 @ 04:54 by Ron Burton MD) ACTH deficiency Acute kidney injury superimposed on chronic kidney disease Adrenal adenoma Arthritis Chronic renal failure, stage 3 (moderate) COPD (chronic obstructive pulmonary disease) COVID-19 Depression Diabetes Hypoxia Lung cancer Neutropenic fever Neutropenic fever Orthostatic hypotension Right knee DJD Secondary adrenal insufficiency SOB (shortness of breath) UTI (urinary tract infection) Surgical History Hx of right knee surgery Family History Other Diabetes Heart disease Hypertension Lung disease Social History Smoking Status: Current every day smoker Tobacco Type: Cigarettes Cigarettes Per Day: 10; Second Hand Exposure: No; Tobacco Cessation Education Requested by Patient: No Hx Alcohol Use: No Hx Substance Use: No Preferred Language: Gabonese Communication Ability: Effective Flight Service Agent Required: No Beliefs That Will Affect Care: None marital status: / Current Living Situation: Family Current Living Situation Comment: grand daughter stays with PT How many Children do You have: 3 Other Information That Helps Us Care for You: No Feels Safe at Home: Yes Safety Concerns: Feels Safe At This Time Assistive Devices: Walker Allergies Allergies Allergy/AdvReac Type Severity Reaction Status Date / Time adhesive Allergy Unknown PULLS SKIN Verified 01/15/21 22:35 OFF Penicillins Allergy Unknown TONGUE Verified 01/15/21 22:35 SWELLING azithromycin AdvReac Unknown Nausea Verified 01/15/21 22:35 Home Meds Home Medications Medication Instructions Recorded Confirmed Combivent Respimat 1 puff INHALATION Q4H PRN 07/17/18 01/15/21 carvedilol 6.25 mg PO BID 07/17/18 01/15/21 folic acid 1 mg PO QAM 07/17/18 01/15/21 sertraline 100 mg PO QAM 07/17/18 01/15/21 sitagliptin 50 mg PO QAM 07/17/18 01/15/21 theophylline 300 mg PO BID 07/17/18 01/15/21 esomeprazole magnesium 20 mg PO HS 06/28/20 01/15/21 furosemide 20 mg PO DAILY PRN 06/28/20 01/15/21 albuterol sulfate 2.5 mg CONTINUOUS NEBULIZATION Q4 01/15/21 01/15/21 PRN atorvastatin 10 mg PO [id number] 01/15/21 01/15/21 icosapent ethyl [Vascepa] 1 g PO UD 01/15/21 01/15/21 Previous Rx's Medication Instructions Recorded ondansetron HCl [Zofran] 4 mg PO Q6H PRN #6 tab 06/28/20 levothyroxine 88 mcg PO DAILY #30 cap 07/21/20 hydrocortisone 10 mg PO UD #90 tab 07/30/20 Results & Data (ED) Vital Signs Vital Signs - 24 hr 01/15/21 21:24 01/15/21 21:31 01/15/21 21:37 Temperature 36.9 C Temperature Source Oral Pulse Rate 81 84 Pulse Rate [Right Finger] 84 Pulse Rate from SpO2 Sensor 82 84 Pulse Rhythm [Right Finger] Regular Pulse Strength [Right Finger] Normal Respiratory Rate 22 20 24 Respiratory Effort / Characteristics Non-Labored Respiratory Depth Normal Respiratory Pattern Regular Blood Pressure 131/79 Blood Pressure [Right Arm] 141/81 H Blood Pressure Mean 96 Blood Pressure Mean [Right Arm] 101 Blood Pressure Position [Right Arm] Lying Pulse Oximetry 95 93 93 Oxygen Delivery Method Room Air Room Air Room Air Sepsis New/Unexplained Change in Mental Status N/A Sepsis Action Taken by Nursing No Action Required 01/15/21 22:00 01/15/21 22:01 01/15/21 22:30 Temperature Temperature Source Pulse Rate 75 75 72 Pulse Rate [Right Finger] Pulse Rate from SpO2 Sensor 75 75 72 Pulse Rhythm [Right Finger] Pulse Strength [Right Finger] Respiratory Rate 18 14 19 Respiratory Effort / Characteristics Respiratory Depth Respiratory Pattern Blood Pressure 134/82 Blood Pressure [Right Arm] Blood Pressure Mean 99 Blood Pressure Mean [Right Arm] Blood Pressure Position [Right Arm] Pulse Oximetry 92 93 93 Oxygen Delivery Method Room Air Room Air Room Air Sepsis New/Unexplained Change in Mental Status Sepsis Action Taken by Nursing 01/15/21 22:31 01/15/21 22:32 01/15/21 23:00 Temperature Temperature Source Pulse Rate 71 71 70 Pulse Rate [Right Finger] Pulse Rate from SpO2 Sensor 71 71 71 Pulse Rhythm [Right Finger] Pulse Strength [Right Finger] Respiratory Rate 17 23 16 Respiratory Effort / Characteristics Respiratory Depth Respiratory Pattern Blood Pressure 124/86 Blood Pressure [Right Arm] Blood Pressure Mean 98 Blood Pressure Mean [Right Arm] Blood Pressure Position [Right Arm] Pulse Oximetry 93 93 93 Oxygen Delivery Method Room Air Sepsis New/Unexplained Change in Mental Status Sepsis Action Taken by Nursing 01/15/21 23:01 01/15/21 23:02 01/15/21 23:43 Temperature Temperature Source Pulse Rate 66 67 75 Pulse Rate [Right Finger] Pulse Rate from SpO2 Sensor 67 66 70 Pulse Rhythm [Right Finger] Pulse Strength [Right Finger] Respiratory Rate 18 26 H 9 L Respiratory Effort / Characteristics Respiratory Depth Respiratory Pattern Blood Pressure 150/87 H Blood Pressure [Right Arm] Blood Pressure Mean 108 Blood Pressure Mean [Right Arm] Blood Pressure Position [Right Arm] Pulse Oximetry 94 91 94 Oxygen Delivery Method Sepsis New/Unexplained Change in Mental Status Sepsis Action Taken by Nursing 01/16/21 00:00 01/16/21 00:01 01/16/21 00:30 Temperature Temperature Source Pulse Rate 76 73 71 Pulse Rate [Right Finger] Pulse Rate from SpO2 Sensor 75 73 72 Pulse Rhythm [Right Finger] Pulse Strength [Right Finger] Respiratory Rate 19 16 16 Respiratory Effort / Characteristics Respiratory Depth Respiratory Pattern Blood Pressure 137/80 Blood Pressure [Right Arm] Blood Pressure Mean 99 Blood Pressure Mean [Right Arm] Blood Pressure Position [Right Arm] Pulse Oximetry 94 94 93 Oxygen Delivery Method Sepsis New/Unexplained Change in Mental Status Sepsis Action Taken by Nursing 01/16/21 00:31 01/16/21 00:50 01/16/21 01:00 Temperature Temperature Source Pulse Rate 71 72 Pulse Rate [Right Finger] 75 Pulse Rate from SpO2 Sensor 71 71 Pulse Rhythm [Right Finger] Pulse Strength [Right Finger] Respiratory Rate 22 14 17 Respiratory Effort / Characteristics Non-Labored Spontaneous Respiratory Depth Respiratory Pattern Blood Pressure 146/85 H Blood Pressure [Right Arm] Blood Pressure Mean 105 Blood Pressure Mean [Right Arm] Blood Pressure Position [Right Arm] Pulse Oximetry 92 93 92 Oxygen Delivery Method Room Air Sepsis New/Unexplained Change in Mental Status Sepsis Action Taken by Nursing 01/16/21 01:01 01/16/21 01:30 01/16/21 01:31 Temperature Temperature Source Pulse Rate 72 72 71 Pulse Rate [Right Finger] Pulse Rate from SpO2 Sensor 72 72 71 Pulse Rhythm [Right Finger] Pulse Strength [Right Finger] Respiratory Rate 23 18 15 Respiratory Effort / Characteristics Respiratory Depth Respiratory Pattern Blood Pressure 165/97 H 161/98 H Blood Pressure [Right Arm] Blood Pressure Mean 119 119 Blood Pressure Mean [Right Arm] Blood Pressure Position [Right Arm] Pulse Oximetry 90 92 94 Oxygen Delivery Method Sepsis New/Unexplained Change in Mental Status Sepsis Action Taken by Nursing Laboratory Data Result diagrams: 01/15/21 21:30 01/15/21 21:30 Lab Results 01/15/21 01/15/21 01/15/21 Range/Units 21:30 21:30 23:22 WBC 8.49 (4.8-10.8) K/uL RBC 4.52 (4.2-5.4) M/uL Hgb 13.2 (12.0-16.0) g/dL Hct 39.9 (37-47) % MCV 88.3 (80-100) fL MCH 29.2 (25-34) pg MCHC 33.1 (32-36) g/dL RDW Std Deviation 50.6 H (36.4-46.3) fL RDW Coeff of Maye 15.7 H (11.5-14.5) % Plt Count 154 (130-400) K/uL MPV 10.8 H (7.4-10.4) fL Immature Gran % (Auto) 0.4 % Neut % (Auto) 63.0 % Lymph % (Auto) 23.0 % [place] % (Auto) 5.7 % Eos % (Auto) 7.7 % Baso % (Auto) 0.2 % Neut # (Auto) 5.36 (1.4-6.5) K/uL Lymph # (Auto) 1.95 (1.2-3.4) K/uL [place] # (Auto) 0.48 (0.11-0.59) K/uL Eos # (Auto) 0.65 H (0-0.5) K/uL Baso # (Auto) 0.02 (0-0.2) K/uL Immature Gran # (Auto) 0.03 H (0.00-0.02) K/uL Sodium 140 (136-145) mmol/L Potassium 3.8 (3.5-5.1) mmol/L Chloride 109 H (98-107) mmol/L Carbon Dioxide 26 (21-32) mmol/L Anion Gap 5.0 (3-11) BUN 29 H (7-18) mg/dl Creatinine 1.80 H (0.6-1.2) mg/dl Est Cr Clr Drug Dosing 31.7 ml/min Est GFR ( Amer) 31.1 ml/min Est GFR (Non-Af Amer) 26.9 ml/min BUN/Creatinine Ratio 15.8 (10-20) Glucose 150 H (70-99) mg/dl Calcium 8.9 (8.5-10.1) mg/dl Magnesium 1.9 (1.8-2.4) mg/dl Total Bilirubin 0.4 (0.2-1) mg/dl AST 15 (15-37) U/L ALT 19 (12-78) U/L Alkaline Phosphatase 83 (45-117) U/L Troponin I < 0.015 (0-0.045) ng/ml Total Protein 7.2 (6.4-8.2) gm/dl Albumin 3.7 (3.4-5.0) gm/dl Globulin 3.5 (2.5-4.0) gm/dl Albumin/Globulin Ratio 1.1 (0.9-2) Lipase 241 (73-393) U/L TSH 9.000 H (0.300-4.500) uIu/ml Free T4 0.84 (0.8-1.6) ng/dl Specimen Hemolysis COVID-19 Eval Order Covid19 at [facility] SARS-CoV-2 (PCR) (Negative) 01/15/21 Range/Units 23:22 WBC (4.8-10.8) K/uL RBC (4.2-5.4) M/uL Hgb (12.0-16.0) g/dL Hct (37-47) % MCV (80-100) fL MCH (25-34) pg MCHC (32-36) g/dL RDW Std Deviation (36.4-46.3) fL RDW Coeff of Maye (11.5-14.5) % Plt Count (130-400) K/uL MPV (7.4-10.4) fL Immature Gran % (Auto) % Neut % (Auto) % Lymph % (Auto) % [place] % (Auto) % Eos % (Auto) % Baso % (Auto) % Neut # (Auto) (1.4-6.5) K/uL Lymph # (Auto) (1.2-3.4) K/uL [place] # (Auto) (0.11-0.59) K/uL Eos # (Auto) (0-0.5) K/uL Baso # (Auto) (0-0.2) K/uL Immature Gran # (Auto) (0.00-0.02) K/uL Sodium (136-145) mmol/L Potassium (3.5-5.1) mmol/L Chloride (98-107) mmol/L Carbon Dioxide (21-32) mmol/L Anion Gap (3-11) BUN (7-18) mg/dl Creatinine (0.6-1.2) mg/dl Est Cr Clr Drug Dosing ml/min Est GFR ( Amer) ml/min Est GFR (Non-Af Amer) ml/min BUN/Creatinine Ratio (10-20) Glucose (70-99) mg/dl Calcium (8.5-10.1) mg/dl Magnesium (1.8-2.4) mg/dl Total Bilirubin (0.2-1) mg/dl AST (15-37) U/L ALT (12-78) U/L Alkaline Phosphatase (45-117) U/L Troponin I (0-0.045) ng/ml Total Protein (6.4-8.2) gm/dl Albumin (3.4-5.0) gm/dl Globulin (2.5-4.0) gm/dl Albumin/Globulin Ratio (0.9-2) Lipase (73-393) U/L TSH (0.300-4.500) uIu/ml Free T4 (0.8-1.6) ng/dl Specimen Hemolysis COVID-19 Eval Order SARS-CoV-2 (PCR) NEGATIVE (Negative) Administered Medications Sodium Chloride (Nss 1000ml) 1,000 mls @ 120 mls/hr IV .[id number] SIMONA Stop: 01/16/21 11:41 Last Admin: 01/16/21 03:51 Dose: 120 mls/hr Documented by: [id number] Discontinued Medications Albuterol (Albut/Ipratrop 3mg/0.5mg Neb 3 Ml Vial) 3 ml NEB NOW STA Stop: 01/16/21 00:36 Last Admin: 01/16/21 00:50 Dose: 3 ml Documented by: [id number] Sodium Chloride (Nss) 500 mls @ 999 mls/hr IV .Q31M ONE Stop: 01/15/21 23:40 Last Infusion: 01/15/21 23:59 Dose: 999 mls/hr Documented by: [id number] Admin: 01/15/21 23:18 Dose: 999 mls/hr Documented by: [id number] Discharge Plan Visit Data Chief Complaint: Syncope (Near Syncope) Stated Complaint: NEAR SYNCOPE/DIARRHEA ED Provider: Ron Burton Discharge Problem: Syncope, COPD (chronic obstructive pulmonary disease), Acute dehydration, Abdominal pain, acute, epigastric Patient Disposition: Admitted As Inpatient Discharge Instructions Interventions: ED Discharge Assessment Last Done: 01/16/21 02:24 Discharge Problem: Syncope Qualifiers: Syncope type: unspecified Qualified Code(s): R55 - Syncope and collapse COPD (chronic obstructive pulmonary disease) Qualifiers: COPD type: COPD with acute exacerbation Qualified Code(s): J44.1 - Chronic obstructive pulmonary disease with (acute) exacerbation
[2021-01-16 00:10] LABS: Lipase 241 U/L (73-393); Troponin I < 0.015 ng/ml (0-0.045)
[2021-01-16] MEDS ORDERED: ALBUT/IPRATROP 3MG/0.5MG NEB 3 ML VIAL NEB STA (00:35)
--- NOTE | 2021-01-16 02:00 | History & Physical Report ---
Date of Service January 16, 2021 Assessment & Plan (1) Syncope and collapse: Mrs. Rogel is a 75 yo woman who was brought to [facility] after a witnessed syncopal episode. - etiology: Given prodrome of nausea, lightheadedness, suspect this was reflex mediated (vaso-vagal) - patient was in a seated position at the time of episode, orthostasis unlikely but will check orthostatic vitals on admission. Possible given recent diarrhea history (volume depletion), BUN mildly elevated. - EKG showing NSR on arrival, patient has no history of arrhythmias, cardiac origin unlikely. Will keep patient on monitor in the event a transient arrhythmia could be captured. - Patient was normotensive on arrival, hypotension unlikley cause. - No witnessed seizure activity reported by bystanders, neurogenic cause unlikely - continue mIVF (2) Lung cancer: - currently undergoing chemo with Dr. Simon - current daily smoker; rcommend cessation - I offered to order a nicotine patch, but patient stated, "not smoking doesn't bother me while in the hospital" (3) COPD (chronic obstructive pulmonary disease): - continue Combivent inhaler - albuterol nebs prn - supplemental o2 as needed - recommend she have her home machine repaired (4) Diabetes: - type II - HbA1c from 12/31/20 was 7.7, at goal for age - home medication regimen consists of sitagliptin - not on a high dose statin (atorvastatin 10mg three times per week); suspect this is related to tolerability issues - carb consistent diet (5) Chronic renal failure, stage 3 (moderate): - Cr at 1.80 on admission, appears to be at baseline - BUN mildly elevated to 29, perhaps indicative of mild dehydration - 1 liter of NSS ordered - trend BMP (6) Depression: - continue home sertraline dose (7) Hypothyroidism: - TSH above goal on admission at 9 - free t4 at 0.8 - continue home levothyroxine dose, although recommend recheck by outpatient PCP (8) Secondary adrenal insufficiency: - continue home dose hydrocortisone DVT ppx; Heparin 5,000 units SQ q12 Diet: Carb consistent DM2 Dispo: Med/Surg with tele Code: Okay with chest compressions, does not want intubation History of Present Illness Primary Care Provider: Arthur Cruz Mrs. Rogel is a 75 with a PMHx of lung cancer (currently undergoing chemothera py under the direction of Dr. Simon) and COPD who presented to the [facility] ED after a witnessed syncopal episode. While playing bingo earlier this evening, patient noted substernal chest pressure. She subsequently developed a sudden sensation of warmth, nausea, felt lightheaded and noted greying of her vision and heart fluttering. Bystanders witness her collapse in her in her seat and immediately called EMS. She was given 200ml of NSS and 1 dose of zofran enroute to the hospital, at which point she reported complete symptomatic resolution. Her last chemotherapy infusion was 12/31/20. She reports a two week history of preceding epigastric pain which was not worsened by eating. She denies any heartburn sensation. She does take a daily esomeprazole. No Etoh or regular NSAID use. She had three days of diarrhea 01/11/21-01/14/21 - currently her stools are still loose, but more formed than earlier in the week. She denies any associated nausea and vomiting, no fevers or chills. She has been eating and drinking normally. Despite her diagnoses of lung cancer and COPD, she remains a daily cigarette smoker. She has cut down recently to less than a pack per day. She was previously wearing nighttime oxygen, but her machine broke and she has not had it fixed. In the ED, she was afebrile with normal HR and BP. Her CBC was normal. Glucose 150. Her creatinine was 1.80 (near baseline) and BUN was mildly elevated to 29. Electrolytes were WNL. Lipase not elevated. Troponin undetectable. TSH at 9, free T4 at 0.84. EKG showing NSR. CXR showing no focal consolidation consistent with a PNA. A/P CT showing a very small pericardial effusion (per STAT rad). Allergies Allergy/AdvReac Type Severity Reaction Status Date / Time adhesive Allergy Unknown PULLS SKIN Verified 01/15/21 22:35 OFF Penicillins Allergy Unknown TONGUE Verified 01/15/21 22:35 SWELLING azithromycin AdvReac Unknown Nausea Verified 01/15/21 22:35 Home Medications Medication Instructions Recorded Confirmed Type Combivent Respimat 1 puff INHALATION Q4H PRN 07/17/18 01/15/21 History carvedilol 6.25 mg PO BID 07/17/18 01/15/21 History folic acid 1 mg PO QAM 07/17/18 01/15/21 History sertraline 100 mg PO QAM 07/17/18 01/15/21 History sitagliptin 50 mg PO QAM 07/17/18 01/15/21 History theophylline 300 mg PO BID 07/17/18 01/15/21 History esomeprazole magnesium 20 mg PO HS 06/28/20 01/15/21 History furosemide 20 mg PO DAILY PRN 06/28/20 01/15/21 History ondansetron HCl [Zofran] 4 mg PO Q6H PRN #6 tab 06/28/20 01/15/21 Rx levothyroxine 88 mcg PO DAILY #30 cap 07/21/20 01/15/21 Rx hydrocortisone 10 mg PO UD #90 tab 07/30/20 01/15/21 Rx albuterol sulfate 2.5 mg CONTINUOUS NEBULIZATION Q4 01/15/21 01/15/21 History PRN atorvastatin 10 mg PO 3XWK 01/15/21 01/15/21 History icosapent ethyl [Vascepa] 1 g PO UD 01/15/21 01/15/21 History Past Med/Surg History Medical History (Updated 01/16/21 @ 04:54 by Ron Burton MD) ACTH deficiency Acute kidney injury superimposed on chronic kidney disease Adrenal adenoma Arthritis Chronic renal failure, stage 3 (moderate) COPD (chronic obstructive pulmonary disease) COVID-19 Depression Diabetes Hypoxia Lung cancer Neutropenic fever Neutropenic fever Orthostatic hypotension Right knee DJD Secondary adrenal insufficiency SOB (shortness of breath) UTI (urinary tract infection) Surgical History Hx of right knee surgery Family History Other Diabetes Heart disease Hypertension Lung disease Social History Smoking Status: Current every day smoker Tobacco Type: Cigarettes Cigarettes Per Day: 10; Second Hand Exposure: No; Tobacco Cessation Education Requested by Patient: No Hx Alcohol Use: No Hx Substance Use: No Preferred Language: Turkmen Communication Ability: Effective Design Assembler Required: No Beliefs That Will Affect Care: None marital status: / Current Living Situation: Family Current Living Situation Comment: grand daughter stays with PT How many Children do You have: 3 Other Information That Helps Us Care for You: No Feels Safe at Home: Yes Safety Concerns: Feels Safe At This Time Assistive Devices: Glasses Review of Systems Review of Systems: All systems reviewed & are unremarkable except as noted in HPI & below Physical Exam Constitutional: WD/WN, vitals as above cooperative; no acute distress Eyes: + anicteric sclerae ENMT: external ear and nose normal, oropharynx normal Neck: normal visual inspection and trachea midline Respiratory: normal respiratory effort; no respiratory distress, no labored breathing and no cough Auscultation: + crackles (diffuse, on inspiration) and + wheezes (diffuse upon expiration) Cardiovascular: Rate/Rhythm: regular rate and regular rhythm Heart Sounds: normal S1 and normal S2 Extremities: + pedal edema (trace ) Gastrointestinal (Abdomen): Inspection/Auscultation: abdomen normal to inspection and normal bowel sounds; abdomen not distended Percussi on/Palpation: + abdomen tender (epigastrium ) and abdomen soft; no guarding Skin: no rashes, warm and dry Psychiatric: A+Ox3, euthymic affect Results & Data Results & Data ([facility]) Vital Signs (Past 12 Hours) Vital Signs Temp Pulse Pulse Resp BP BP Pulse Ox 01/16/21 01:01 72 23 165/97 H 90 01/16/21 01:00 72 17 92 01/16/21 00:50 75 14 93 01/16/21 00:31 71 22 146/85 H 92 01/16/21 00:30 71 16 93 01/16/21 00:01 73 16 137/80 94 01/16/21 00:00 76 19 94 01/15/21 23:43 75 9 L 94 01/15/21 23:02 67 26 H 91 01/15/21 23:01 66 18 150/87 H 94 01/15/21 23:00 70 16 93 01/15/21 22:32 71 23 93 01/15/21 22:31 71 17 124/86 93 01/15/21 22:30 72 19 93 01/15/21 22:01 75 14 134/82 93 01/15/21 22:00 75 18 92 01/15/21 21:37 84 24 93 01/15/21 21:31 81 20 131/79 93 01/15/21 21:24 36.9 C 84 22 141/81 H 95 Code Status & VTE Plan VTE Prophylaxis Plan VTE Prophylaxis will be ordered: Yes Supervising Physician Co-Signing Physician Notes Attending addendum: I have physically seen this patient, have supervised the medical residents activities, and agree with the H&P unless as otherwise noted. Assessment and Plan: Syncope and collapse- The patient will be admitted to telemetry for serial cardiac enzymes, serial EKG's, cardiac rhythm monitoring and a 2-D echocardiogram with Dopplers. Likely vasovagal IV fluids Presently undergoing chemo therapy with Dr. Simon Cessation of tobacco patient feels she does not need nicotine dependence COPD- Continue Combivent examination Nebs every 2 hours as needed Titrate nasal cannula oxygen to keep pulse ox 92% Remaining orders and notations as noted Resident Activity Tracking Resident Involvement: Resident Care Provided Care Provided: Adult Hospital Medicine
[2021-01-16] MEDS ORDERED: ONDANSETRON INJ 2 MG/ML 2 ML VIAL IV PRN (03:22)
[2021-01-16] MEDS ORDERED: ALBUTEROL 0.083% NEBU SOLN 3 ML VIAL INH PRN (03:22)
[2021-01-16] MEDS ORDERED: SODIUM CHLORIDE 0.9% 1000ML 1,000 ML IV SCH (03:22)
[2021-01-16] MEDS ORDERED: ACETAMINOPHEN 325 MG TAB PO PRN (03:22)
[2021-01-16] MEDS: LEVOTHYROXINE SODIUM 88 MCG TABLET PO SCH (06:16)
--- NOTE | 2021-01-16 06:53 | Hospitalist Progress Note ---
Date of Service January 16, 2021 Assessment & Plan (1) Syncope and collapse: 75F w/ PMHx of ACTH deficiency, COPD, current smoker, lung cancer on Keytruda, CKD, CHF?, and hypothyroidism who presented after a witnessed brief syncopal episode most consistent w/ vasovagal. Stable. syncope - most likely vasovagal etiology given prodromal symptoms which included facial flushing and feeling warm. orthostatic BPs were negative - no witnessed seizure activity - at increased risk of stroke. however, no focal neuro deficits. normal neuro exam - dehydration considered. BUN/Cr less suggestive - Considered adrenal insufficiency. - lower suspicion cardiogenic. defer echo at this time. last TTE was many years ago per patient. self-reported hx of CHF w/ hospitalization in 2014. 1.7L cumulative intake. no output recorded. - IV fluids initially, since d/c'd - cardiology consulted. continue telemetry monitoring. no arrhythmias noted thus far (2) Diabetes: - type II - HbA1c from 12/31/20 was 7.7, at goal for age - continue home Januvia - elevated bsgs noted, ~200. if worsens, can consider SSI + lantus while inpatient - not on a high dose statin (atorvastatin 10mg three times per week); suspect this is related to tolerability issues - carb consistent diet (3) COPD (chronic obstructive pulmonary disease): - MDI inhalers switched to duoneb; patient reports some symptom relief - supplemental o2 as needed. patient's O2 sat this admission hovers at low 90s, w/ times at 90 exactly - order for goal sat titrate to 92 - recommend she have her home O2 machine repaired. patient's PCP manages her COPD regimen. per patient, also has SHELBI w/ noctural desats and is in process of obtaining cpap - provided 1 dose of 30mg IV methylpred (4) Acute gastroenteritis: - N/V, diarrhea - CT abd/pelv w/ extensive colonic diverticulosis and possible nonobstructing R renal calculus. no acute concerning findings - encourage PO intake - defer stool studies or c diff testing at this time (5) Lung cancer: - currently undergoing chemo with Dr. Simon - current daily smoker; recommend cessation - offered to order a nicotine patch, but patient stated, "not smoking doesn't bother me while in the hospital" (6) Chronic renal failure, stage 3 (moderate): - Cr at 1.80 on admission, 1.66 on day 2, appears to be at baseline - daily BMP (7) Depression: - continue home sertraline dose (8) Hypothyroidism: - TSH above goal on admission at 9 - free t4 at 0.8 - continue home levothyroxine dose, although recommend recheck by outpatient PCP (9) Secondary adrenal insufficiency: - continue home dose hydrocortisone DVT ppx; Heparin 5,000 units SQ q12 Diet: Carb consistent DM2. no mIVF Dispo: Med/Surg with tele. likely home on 01/17 Code: conditional. no intubation Admission and Anticipated Discharge Date Admission Date: January 16, 2021 Supervising Physician Co-Signing Physician Notes Resident Physician Supervision Note: I independently interviewed and examined the patient and verified the sams history and physical, reviewed labs and image studies and agree with resident Dr. Kramer findings and care plan. Subjective Prior to her syncopal episode, patient felt that throat had pulsated and she felt warm and cold sweats. No blurry vision. Pt endorses chf in past. Denies afib or MT or stroke or prior syncopal episodes. No hx seizures. DM2 on . Patient states she feels at baseline now. Lives w/ granddaughter at home. The SOB is chronic. Has copd. She used to use 2L O2 qhs., but her machine broke 2 years ago. Patient does note that her COPD has exacerbated x 1-2 months and now needs her inhaler q4h on the dot instead of 3x/day PRN. Patient also had a few days of diffuse abdominal pain and she had dry heaving and emesis yesterday. Her stool were large volume for a day followed by diarrhea. Review of Systems Review of Systems: Constitutional: Denies fever, chills Eyes: Denies blurry vision, vision changes ENT: Denies sore throat, sinus pain Cardiovascular: Denies chest pain, palpitations. Patient states her lower extremity appear slightly more swollen. Respiratory: SOB at baseline. Gastrointestinal: Denies abdominal pain, constipation. + diarrhea. + several episodes of emesis yesterday, since resolved. Genitourinary: Denies urinary symptoms including dysuria Musculoskeletal: Denies weakness, muscle aches/pain, joint aches/pain Neurological: Denies headache, numbness, tingling, focal weakness Physical Exam Physical Exam: General: Grossly A&O. NAD. Cooperative. Sitting in bed. HEENT: Atraumatic, normocephalic. EOMI. PERRL (Hx of R retinal detachment. R pupil response ~normal, rechecked). Pulm: Diffuse wheezes inspiratory and expiratory. Decreased air movement at bases. No respiratory distress. On room air. Cardiac: RRR, -mrg. No LE edema. Abdominal: Mild diffuse TTP. Soft, nondistended. Psych: Mildly flat affect Neuro: CN II-XII intact. Normal strength and sensation of extremities. Normal finger to nose. Results & Data Results & Data ([facility]) Vital Signs (Past 12 Hours) Vital Signs Temp Pulse Pulse Resp BP BP Pulse Ox 01/16/21 02:57 37 C 113 H 16 175/85 H 92 01/16/21 02:01 74 15 154/102 H 91 01/16/21 02:00 71 18 92 01/16/21 01:31 71 15 161/98 H 94 01/16/21 01:30 72 18 92 01/16/21 01:01 72 23 165/97 H 90 01/16/21 01:00 72 17 92 01/16/21 00:50 75 14 93 01/16/21 00:31 71 22 146/85 H 92 01/16/21 00:30 71 16 93 01/16/21 00:01 73 16 137/80 94 01/16/21 00:00 76 19 94 01/15/21 23:43 75 9 L 94 01/15/21 23:02 67 26 H 91 01/15/21 23:01 66 18 150/87 H 94 01/15/21 23:00 70 16 93 01/15/21 22:32 71 23 93 01/15/21 22:31 71 17 124/86 93 01/15/21 22:30 72 19 93 01/15/21 22:01 75 14 134/82 93 01/15/21 22:00 75 18 92 01/15/21 21:37 84 24 93 01/15/21 21:31 81 20 131/79 93 01/15/21 21:24 36.9 C 84 22 141/81 H 95 Resident Activity Tracking Resident Involvement: Resident Care Provided Care Provided: Adult Hospital Medicine (1) COPD (chronic obstructive pulmonary disease) COPD type: COPD with acute exacerbation Qualified Code(s): J44.1 - Chronic obstructive pulmonary disease with (acute) exacerbation
[2021-01-16] MEDS: ALBUTEROL HFA 8 GM INHALER INH SCH ×2 (07:12→10:49)
[2021-01-16] MEDS: IPRATROPIUM BROMIDE HFA INHALER INH SCH ×2 (07:13→10:48)
[2021-01-16 08:11] LABS: BUN Creatinine Ratio 16.6 (10-20); Calcium 8.9 mg/dl (8.5-10.1); Creatinine Clr Calc Pharmacy 34.1 ml/min; Est GFR (African American) 34.3 ml/min; Est GFR (Non-African American) 29.6 ml/min; Potassium 3.6 mmol/L (3.5-5.1)
--- NOTE | 2021-01-16 08:25 | CT Scan Report ---
CT OF THE ABDOMEN AND PELVIS WITHOUT CONTRAST CLINICAL HISTORY: Epigastric pain. COMPARISON STUDY: CT of the abdomen and pelvis July 28, 2020. TECHNIQUE: Axial images of the abdomen and pelvis were obtained without IV contrast. Images were revi ewed in the axial, sagittal, and coronal planes. Automated exposure control was utilized for the sonali dy. A dose lowering technique was utilized adhering to the principles of ALARA. FINDINGS: Lung bases are unremarkable. A 2 cm low-attenuation left adrenal nodule is unchanged. This represents an adenoma. A 2 mm calcification within the right renal sinus is unchanged. This could ref lect a nonobstructing renal calculus. There are no ureteral calculi. There is no hydronephrosis. A wadsworth spected hyperdense cyst within the right kidney is suboptimally assessed on this unenhanced exam. Thi s is unchanged. Evaluation of the abdomen and pelvis is suboptimal as unenhanced exam. There is no si gnificant biliary ductal dilatation status post cholecystectomy. Unenhanced images of the liver, sple en, right adrenal gland and pancreas are unremarkable. There is extensive plaque of the abdominal aor ta. There is no aneurysmal dilatation. Extensive sigmoid diverticulosis is noted without evidence for acute diverticulitis. There is no evidence for a bowel obstruction. No abdominal or pelvic lymphaden opathy is present. The appendix is not visualized. No suspicious lesion or acute fractures identified within the visualized skeletal structures. There is no ascites. IMPRESSION: 1. No bowel obstruction. No bowel wall thickening. 2. Extensive colonic diverticulosis. No evidence for acute diverticulitis. 3. Possible punctate nonobstructing right renal calculus. No ureteral calculi. ACT 112: Negative or not required by law. Electronically signed by: Woody Albright M.D. 01/16/2021 8:24 AM
--- NOTE | 2021-01-16 08:26 | XRay Report ---
XR chest 1V portable CLINICAL HISTORY: cough COMPARISON STUDY: Chest CT December 03, 2020. FINDINGS: Lung volumes are normal. Mild left basilar opacity reflects atelectasis. There is no pneumo thorax or pleural effusion. Cardiac size is stable. Mediastinal contours are normal. There is no evid ence for pulmonary edema. IMPRESSION: No acute cardiopulmonary findings. ACT 112: Negative or not required by law. Electronically signed by: Woody Albright M.D. 01/16/2021 8:25 AM
[2021-01-16] MEDS: VASCEPA~ORDER AWAITING ACTION SCH ×2 (08:54→15:03)
[2021-01-16] MEDS ORDERED: IPRATROPIUM BROMIDE/ALBUTEROL respimat INH INH SCH (09:00)
[2021-01-16] MEDS ORDERED: ATORVASTATIN 10 MG TAB PO SCH (09:00)
[2021-01-16] MEDS: carvediloL 6.25 MG TAB PO SCH ×2 (09:27→21:40)
[2021-01-16] MEDS: FOLIC ACID 1 MG TAB PO SCH (09:27)
[2021-01-16] MEDS: HEPARIN SOD 5,000 UNIT/0.5 ML VIAL SQ SCH ×2 (09:27→21:40)
[2021-01-16] MEDS: HYDROCORTISONE 10 MG TAB PO SCH ×2 (09:28→15:03)
[2021-01-16] MEDS: SERTRALINE HCL 100 MG TABLET PO SCH (09:28)
[2021-01-16] MEDS: SITagliptin PHOSPHATE 25 MG TAB PO SCH (09:29)
[2021-01-16] MEDS: THEOPHYLLINE 300MG EXTENDED REL TAB PO SCH ×2 (09:29→21:40)
--- NOTE | 2021-01-16 12:47 | Electrocardiogram Report ---
Test Reason : Blood Pressure : / mmHG Vent. Rate : 078 BPM Atrial Rate : 078 BPM P-R Int : 134 ms QRS Dur : 090 ms QT Int : 378 ms P-R-T Axes : 054 010 047 degrees QTc Int : 430 ms Poor data quality, interpretation may be adversely affected Normal sinus rhythm Nonspecific ST abnormality Borderline ECG When compared with ECG of 28-JUL-2020 16:11, No significant change Confirmed by Javier Johnston ([id number]) on 01/16/2021 12:47:02 PM Referred By: REFERRED SELF Confirmed By:Javier Johnston
[2021-01-16] MEDS: ALBUT/IPRATROP 3MG/0.5MG NEB 3 ML VIAL NEB SCH ×2 (14:21→19:21)
--- NOTE | 2021-01-16 19:50 | Billing Data ---
Date of Service January 16, 2021 Coding Level of Care Code 06026 OBS Care - Level 3
[2021-01-16] MEDS ORDERED: methylPREDNISolone 30 MG in SYRINGE 0 ML IV ONE (20:06)
[2021-01-16] MEDS ORDERED: PANTOprazole 40 MG TAB PO SCH (21:00)
[2021-01-17] MEDS: LEVOTHYROXINE SODIUM 88 MCG TABLET PO SCH (06:20)
[2021-01-17] MEDS: ALBUT/IPRATROP 3MG/0.5MG NEB 3 ML VIAL NEB SCH ×2 (07:07→11:05)
[2021-01-17 07:30] LABS: Eosinophils # (auto) 0.01 K/uL (0-0.5); Eosinophils % (auto) 0.2 %; Hematocrit (blood only) 35.7 % (37-47); Hemoglobin 11.7 g/dL (12.0-16.0); Immature Granulocytes # (auto) 0.01 K/uL (0.00-0.02); Immature Granulocytes % (auto) 0.2 %; Lymphocytes # (auto) 0.67 K/uL (1.2-3.4); Lymphocytes % (auto) 16.2 %; Mean Corpuscular Hemoglobin 28.7 pg (25-34); Mean Corpuscular Hgb Conc 32.8 g/dL (32-36); Mean Corpuscular Volume 87.5 fL (80-100); Mean Platelet Volume 11.2 fL (7.4-10.4); Monocytes # (auto) 0.09 K/uL (0.11-0.59); Monocytes % (auto) 2.2 %; Neutrophils # (auto) 3.35 K/uL (1.4-6.5); Neutrophils % (auto) 81.2 %; Platelet Count 163 K/uL (130-400); RDW Coefficient of Variation 15.4 % (11.5-14.5); RDW Standard Deviation 49.9 fL (36.4-46.3); Red Blood Count 4.08 M/uL (4.2-5.4); White Blood Count 4.13 K/uL (4.8-10.8)
[2021-01-17] MEDS: THEOPHYLLINE 300MG EXTENDED REL TAB PO SCH (07:55)
[2021-01-17] MEDS: HYDROCORTISONE 10 MG TAB PO SCH ×2 (07:55→13:04)
[2021-01-17] MEDS: SERTRALINE HCL 100 MG TABLET PO SCH (07:55)
[2021-01-17] MEDS: carvediloL 6.25 MG TAB PO SCH (07:56)
[2021-01-17] MEDS: SITagliptin PHOSPHATE 25 MG TAB PO SCH (07:56)
[2021-01-17] MEDS: FOLIC ACID 1 MG TAB PO SCH (07:57)
[2021-01-17] MEDS: VASCEPA~ORDER AWAITING ACTION SCH ×2 (07:57)
[2021-01-17] MEDS: HEPARIN SOD 5,000 UNIT/0.5 ML VIAL SQ SCH (07:58)
[2021-01-17 08:21] LABS: BUN Creatinine Ratio 16.7 (10-20); Calcium 8.8 mg/dl (8.5-10.1); Creatinine Clr Calc Pharmacy 34.8 ml/min; Est GFR (African American) 35.1 ml/min; Est GFR (Non-African American) 30.3 ml/min; Potassium 4.3 mmol/L (3.5-5.1)
[2021-01-17 10:07] LABS: Appearance Urine Clear (Clear); Bilirubin Urine Negative (Negative); Blood Urine Negative (Negative); Color Urine Yellow; Glucose Urine UA Negative (Negative); Ketones Urine Negative (Negative); Leukocyte Esterase Urine Negative (Negative); Nitrite Urine Negative (Negative); Protein Urine Negative (Negative); Specific Gravity Urine 1.018 (1.000-1.030); Urobilinogen Urine Negative (Negative)
--- NOTE | 2021-01-17 12:33 | Discharge Summary ---
Date of Service January 17, 2021 Admission HPI Per Admitting Provider Mrs. Rogel is a 75 with a PMHx of lung cancer (currently undergoing chemotherapy under the direction of Dr. Simon) and COPD who presented to the [facility] ED after a witnessed syncopal episode. While playing bingo earlier this evening, patient noted substernal chest pressure. She subsequently developed a sudden sensation of warmth, nausea, felt lightheaded and noted greying of her vision and heart fluttering. Bystanders witness her collapse in her in her seat and immediately called EMS. She was given 200ml of NSS and 1 dose of zofran enroute to the hospital, at which point she reported complete symptomatic resolution. Her last chemotherapy infusion was 12/31/20. She reports a two week history of preceding epigastric pain which was not worsened by eating. She denies any heartburn sensation. She does take a daily esomeprazole. No Etoh or regular NSAID use. She had three days of diarrhea 01/11/21-01/14/21 - currently her stools are still loose, but more formed than earlier in the week. She denies any associated nausea and vomiting, no fevers or chills. She has been eating and drinking normally. Despite her diagnoses of lung cancer and COPD, she remains a daily cigarette smoker. She has cut down recently to less than a pack per day. She was previously wearing nighttime oxygen, but her machine broke and she has not had it fixed. In the ED, she was afebrile with normal HR and BP. Her CBC was normal. Glucose 150. Her creatinine was 1.80 (near baseline) and BUN was mildly elevated to 29. Electrolytes were WNL. Lipase not elevated. Troponin undetectable. TSH at 9, free T4 at 0.84. EKG showing NSR. CXR showing no focal consolidation consistent with a PNA. A/P CT showing a very small pericardial effusion (per STAT rad). Principal Diagnosis Syncope Discharge Exam Constitutional WD/WN, vitals as above Eyes PERRL, conjunctivae normal, anicteric sclerae Respiratory normal respiratory effort, lungs clear to auscultation Auscultation: no crackles, no rales, no rhonchi and no wheezes Cardiovascular Rate/Rhythm: regular rate and regular rhythm Heart Sounds: no gallop, no murmur and no cardiac rub Vessels: normal peripheral pulses; no JVD Extremities: no edema Gastrointestinal (Abdomen) Inspection/Auscultation: normal bowel sounds; abdomen not distended Percussion/Palpation: abdomen soft; abdomen nontender and no guarding Musculoskeletal no cyanosis or clubbing, extremities motor strength 5/5 Skin no rashes, warm and dry Neurologic PERRL, EOMI, accommodation nl, no face palsy, no dysarthria CN's II-XI intact bilaterally and moves all extremities Psychiatric Orientation: alert and oriented x 3 Discharge Data Allergies Allergy/AdvReac Type Severity Reaction Status Date / Time adhesive Allergy Unknown PULLS SKIN Verified 01/15/21 22:35 OFF Penicillins Allergy Unknown TONGUE Verified 01/15/21 22:35 SWELLING azithromycin AdvReac Unknown Nausea Verified 01/15/21 22:35 Consultations 01/16/21 01:02 ED Decision to Admit Stat Ordered Studies 01/15/21 23:09 CT abd pelvis wo con Urgent Hospital Course (1) Syncope and collapse: 75F w/ PMHx of ACTH deficiency, COPD, current smoker, lung cancer on Keytruda, CKD, CHF?, and hypothyroidism who presented after a witnessed brief syncopal episode most consistent w/ vasovagal. Stable. Near syncope: - most likely vasovagal etiology given prodromal symptoms which included facial flushing and feeling war,m - no witnessed seizure activity - Known history of adrenal insufficiency giving potential for additional hypotension - Resolution of symptoms with no further events during admission Type 2 diabetes: - HbA1c from 12/31/20 was 7.7 - continue home Januvia - elevated bsgs noted, ~200 - not on a high dose statin (atorvastatin 10mg three times per week) COPD: ? with mild exacerbation - Received one dose of solumedrol with improvement. - Continue home inhaler regimen at this time Chronic respiratory failure: - recommend she have her home O2 machine repaired. - per patient, also has SHELBI w/ noctural desats and is in process of obtaining CPAP Acute gastroenteritis: - N/V, diarrhea - CT abd/pelv demonstrating extensive colonic diverticulosis and possible nonobstructing R renal calculus Lung cancer: - currently undergoing chemo with Dr. Simon - current daily smoker; recommend cessation Chronic renal failure, stage 3: - Cr at 1.80 on admission - Creatinine downtrending prior to discharge Depression: - continue home sertraline dose Hypothyroidism: - TSH above goal on admission at 9 - free t4 at 0.8 - continue home levothyroxine dose - Recommend to recheck TSH in 4 to 6 weeks Secondary adrenal insufficiency: - continue home dose hydrocortisone (2) Diabetes: (3) COPD (chronic obstructive pulmonary disease): (4) Acute gastroenteritis: (5) Lung cancer: (6) Chronic renal failure, stage 3 (moderate): (7) Depression: (8) Hypothyroidism: (9) Secondary adrenal insufficiency: Total Time Total Time Spent Total Time Spent (In Minutes): <30 Discharge Plan Discharge Items Patient Disposition: Home - Self-Care Reason For Visit: SYNCOPE Discharge Diagnosis: Syncope Activity: Per Instructions section Non-emergency contact: Primary Care Provider Call non-emergency contact if: you have any medication questions, your symptoms worsen and your temperature is above 101 Follow-up/Referrals: Arthur Cruz [Primary Care Provider] - Diet: Carb Consistent or DM2 Addtl Attending Provider Instructions: Received admitted for concerns of a near syncopal event earlier this week. During this evaluation, with our laboratory testing and evaluations it was deemed that this near fall was likely due to a reflex in her body, this is sometimes called a vasovagal reflex. These types of reflexes can occur as a result of nausea, or vomiting, or diarrhea, and tend to be relatively self- limiting with limited chance of complications. Now that you are being discharged home it would be important for you to continue to keep yourself appropriately hydrated aiming for about 60 ounces of fluid in a day. Pending Studies at Discharge: No Stand-Alone Forms: My [facility], Smoking Cessation Medications and DC Order Prescriptions: Continued carvedilol 6.25 mg tablet 6.25 mg PO BID RF: 0 sertraline 100 mg tablet 100 mg PO QAM RF: 0 theophylline 300 mg tablet extended release 12 hr 300 mg PO BID RF: 0 folic acid 1 mg tablet 1 mg PO QAM RF: 0 sitagliptin 50 mg tablet 50 mg PO QAM RF: 0 Combivent Respimat 20-100 mcg/actuation Mist 1 puff INHALATION Q4H PRN (Reason: Shortness Of Breath Or Wheezing) RF: 0 hydrocortisone 10 mg tablet 10 mg PO UD Qty: 90 RF: 5 furosemide 20 mg tablet 20 mg PO DAILY PRN (Reason: Swelling) RF: 0 esomeprazole magnesium 20 mg capsule,delayed release(DR/EC) 20 mg PO HS RF: 0 ondansetron HCl [Zofran] 4 mg tablet 4 mg PO Q6H PRN (Reason: nausea and vomiting) Qty: 6 RF: 0 levothyroxine 88 mcg capsule 88 mcg PO DAILY Qty: 30 RF: 0 albuterol sulfate 2.5 mg /3 mL (0.083 %) solution for nebulization 2.5 mg continuous nebulization Q4 PRN (Reason: cough,sob) RF: 0 atorvastatin 10 mg tablet 10 mg PO 3XWK RF: 0 icosapent ethyl [Vascepa] 1 gram capsule 1 g PO UD RF: 0 Discharge Orders: Discharge Order (Routine); Ordered 01/17/21 Ordered By: Zeeshan Welch Admission Data Admit Date/Time: 01/16/21 01:44 Attending Provider: Lia Osuna Admit Provider: Kaylene Greenwood Primary Care Provider: Arthur Cruz Other Providers: Tramaine Connor Other Interventions: Discharge Summary Assessment (RN) Last Done: 01/17/21 12:59 Supervising Physician Co-Signing Physician Notes Resident Physician Supervision Note: I independently interviewed and examined the patient and verified the sams history and physical, reviewed labs and image studies and agree with resident Dr. Welch findings and care plan. Resident Activity Tracking Resident Involvement: Resident Care Provided Care Provided: Adult Hospital Medicine
== END 2021-01-17 14:50 | disposition home or self-care (01) ==
LOC: ED 21:20 → 2W 21:20 → SUATTDRO 01-16 01:44 → 2W 01-16 02:24

== ENCOUNTER 2021-02-09 18:24 | Inpatient (IN) ==
--- NOTE | 2021-02-09 18:40 | Emergency Department Note ---
History of Present Illness General Chief Complaint: Abdominal Pain Time Seen by Provider: 02/09/21 18:38 Source: patient Mode of arrival: ambulatory Limitations: no limitations History of Present Illness Provider Complaint: abdominal pain and other (back pain) Onset (ago): 2 week(s) Pain Consistency: intermittent Location: LLQ and RLQ Radiation: back Migration to: no migration Severity: severe Quality: + sharp Relieved By: + nothing Exacerbated By: + movement and + other (Palpation) Context: no foreign travel, no sick contacts, no recent antibiotic use, no recent surgery/procedure, no recent injury or no history of similar episodes Associated Symptoms: + nausea, + diarrhea and + back pain; no vomiting, no constipation, no dysuria, no melena, no hematuria and no weakness Patient does present with concern for abdominal pain. The patient does have a history of lung CA undergoing chemotherapy with Dr. Simon does have a history of COPD. Patient is on Keytruda. Patient does have a history of ACTH deficiency. Patient is a current smoker. Home Medications Medication Instructions Recorded Confirmed Type carvedilol 6.25 mg tablet 6.25 mg PO BID 07/17/18 02/09/21 History folic acid 1 mg tablet 1 mg PO QAM 07/17/18 02/09/21 History ipratropium 20 mcg-albuterol 100 1 puff INHALATION Q4H PRN 07/17/18 02/09/21 History mcg/actuation mist for inhalation (Combivent Respimat) sertraline 100 mg tablet 100 mg PO QAM 07/17/18 02/09/21 History sitagliptin 50 mg tablet 50 mg PO QAM 07/17/18 02/09/21 History theophylline 300 mg 300 mg PO BID 07/17/18 02/09/21 History tablet,extended release,12 hr esomeprazole magnesium 20 mg 20 mg PO HS 06/28/20 02/09/21 History capsule,delayed release furosemide 20 mg tablet 20 mg PO DAILY PRN 06/28/20 02/09/21 History ondansetron HCl 4 mg tablet 4 mg PO Q6H PRN #6 tab 06/28/20 02/09/21 Rx (Zofran) hydrocortisone 10 mg tablet 10 mg PO UD #90 tab 07/30/20 02/09/21 Rx albuterol sulfate 2.5 mg CONTINUOUS NEBULIZATION Q4 01/15/21 02/09/21 History PRN atorvastatin 10 mg tablet 10 mg PO 3XWK 01/15/21 02/09/21 History icosapent ethyl 1 gram capsule 2 g PO BIDM 01/15/21 02/09/21 History (Vascepa) levothyroxine 112 mcg tablet 112 mcg PO DAILY 02/09/21 02/09/21 History Allergies Allergy/AdvReac Type Severity Reaction Status Date / Time adhesive Allergy Unknown PULLS SKIN Verified 02/09/21 19:24 OFF Penicillins Allergy Unknown TONGUE Verified 02/09/21 19:24 SWELLING azithromycin AdvReac Unknown Nausea Verified 02/09/21 19:24 Past Med/Surg History Medical History ACTH deficiency Acute kidney injury superimposed on chronic kidney disease Adrenal adenoma Arthritis Chronic renal failure, stage 3 (moderate) COPD (chronic obstructive pulmonary disease) COVID-19 Depression Diabetes Hypoxia Lung cancer Neutropenic fever Neutropenic fever Orthostatic hypotension Right knee DJD Secondary adrenal insufficiency SOB (shortness of breath) UTI (urinary tract infection) Surgical History Hx of right knee surgery Family History Other Diabetes Heart disease Hypertension Lung disease Social History Smoking Status: Current every day smoker Tobacco Type: Cigarettes Cigarettes Per Day: 5; Second Hand Exposure: No; Do You Dip or Chew Tobacco: No; Tobacco Cessation Education Requested by Patient: No Hx Alcohol Use: No Hx Substance Use: No Preferred Language: Czech Communication Ability: Effective Silk Screen Layout Drafter Required: No Beliefs That Will Affect Care: None marital status: / Current Living Situation: Family Current Living Situation Comment: grand daughter stays with PT How many Children do You have: 4 Other Information That Helps Us Care for You: No Feels Safe at Home: Yes Assistive Devices: Denture - Upper, Glasses and Walker Review of Systems See HPI for pertinent positives & negatives. and A total of 10 systems reviewed and were otherwise negative Physical Exam Vital Signs: Vital Signs - 24 hr 02/09/21 18:34 02/09/21 18:48 02/09/21 18:52 Pulse Rate 74 Pulse Rate from Sp O2 Sensor 74 Respiratory Rate 16 Blood Pressure 119/67 Blood Pressure Lilian n 84 Pulse Oximetry 92 99 Oxygen Delivery Me thod Room Air Sepsis New/Unexpla ined Change in Men tanna Status No Sepsis Action Take n by Nursing No Action Required 02/09/21 19:00 02/09/21 19:30 02/09/21 20:00 Pulse Rate 79 75 74 Pulse Rate from Sp O2 Sensor 78 75 75 Respiratory Rate 18 24 16 Blood Pressure 132/90 136/70 108/66 Blood Pressure Lilian n 104 92 80 Pulse Oximetry 94 99 99 Oxygen Delivery Me thod Sepsis New/Unexpla ined Change in Men tanna Status Sepsis Action Take n by Nursing 02/09/21 20:30 Pulse Rate 73 Pulse Rate from Sp O2 Sensor 75 Respiratory Rate 21 Blood Pressure 127/79 Blood Pressure Lilian n 95 Pulse Oximetry 99 Oxygen Delivery Me thod Sepsis New/Unexpla ined Change in Men tanna Status Sepsis Action Take n by Nursing Physical Exam: GENERAL: Comfortable in appearance, wearing glasses and a mask. EYE EXAM: Normal conjunctiva. PERRL, no anisocoria and EOM's grossly intact w/o pain. NECK: Supple, no nuchal rigidity, no adenopathy, non-tender. No signs of meningismus. LUNGS: Scattered inspiratory and expiratory wheezes throughout.. Normal chest wall mechanics. HEART: NSR, no MRG. ABDOMEN: Abdomen soft, lower abdominal pain without peritonitis, normo-active bowel sounds, no masses, no rebound or guarding. BACK: No CVA TTP. SKIN: No rashes and no bruising. UPPER EXTREMITIES: Upper extremities are grossly normal. LOWER EXTREMITIES: Grossly normal, no edema. NEURO EXAM: A&O x3, cranial nerves II-XII grossly intact, normal speech, moves all 4 extremities on command w/o issue. Course Course Cardiac monitoring: An order was placed for continuous cardiac monitoring. The monitor shows a rate of 75 with sinus rhythm. Administered Medications Carvedilol (Carvedilol 6.25 Mg Tab) 6.25 mg PO BID SIMONA Stop: 03/11/21 23:51 Last Admin: 02/10/21 08:47 Dose: 6.25 mg Documented by: [id number] Admin: 02/10/21 00:34 Dose: 6.25 mg Documented by: [id number] Folic Acid (Folic Acid 1 Mg Tab) 1 mg PO QAM SIMONA Stop: 03/12/21 08:59 Last Admin: 02/10/21 08:48 Dose: 1 mg Documented by: [id number] Heparin Sodium (Porcine) (Heparin Sod 5,000 Unit/0.5 Ml Vial) 5,000 units SQ Q12 SIMONA Stop: 03/12/21 08:59 Last Admin: 02/10/21 08:49 Dose: 5,000 units Documented by: [id number] Hydrocortisone (Hydrocortisone 10 Mg Tab) 20 mg PO QAM SIMONA Stop: 03/12/21 08:59 Last Admin: 02/10/21 08:48 Dose: 20 mg Documented by: [id number] Sodium Chloride (Nss 1000ml) 1,000 mls @ 80 mls/hr IV .[id number] SIMONA Stop: 03/11/21 23:51 Last Admin: 02/10/21 00:19 Dose: 80 mls/hr Documented by: [id number] Insulin Aspart (Insulin Aspart 100 Units/Ml 3 Ml Pen) 0 units SC Q6 SIMONA Stop: 03/12/21 05:59 Last Admin: 02/10/21 05:32 Dose: Not Given Documented by: [id number] Cosigned by: [id number] Levothyroxine Sodium (Levothyroxine Sodium 112 Mcg Tablet) 112 mcg PO DAILYBB SIMONA Stop: 03/12/21 06:29 Last Admin: 02/10/21 06:19 Dose: 112 mcg Documented by: [id number] Theophylline (Theophylline 300mg Extended Rel Tab) 300 mg PO BID SIMONA Stop: 03/12/21 08:59 Last Admin: 02/10/21 08:49 Dose: 300 mg Documented by: [id number] Discontinued Medications Sodium Chloride (Nss 1000ml) 1,000 mls @ 999 mls/hr IV .Q1H1M STA Stop: 02/09/21 19:46 Last Infusion: 02/09/21 20:02 Dose: 0 mls/hr Documented by: [id number] Admin: 02/09/21 18:58 Dose: 999 mls/hr Documented by: [id number] Morphine Sulfate (Morphine Sulfate 4 Mg/Ml 1 Ml Carp\Vial) 4 mg IV NOW STA Stop: 02/09/21 18:47 Last Admin: 02/09/21 18:59 Dose: 4 mg Documented by: [id number] Ondansetron HCl (Ondansetron Inj 2 Mg/Ml 2 Ml Vial) 4 mg IV NOW STA Stop: 02/09/21 18:47 Last Admin: 02/09/21 18:59 Dose: 4 mg Documented by: [id number] Medical Decision Making Differential Diagnosis Appendicitis, ovarian cyst, ovarian torsion, ectopic , TOA, PID, infections, diverticulitis, UTI, obstruction, mesenteric ischemia, aortic pathology, inflammatory bowel disease, renal colic, PUD, pancreatitis, biliary pathology, hernia, volvulus, constipation, as well as other pathologies. Medical Records Attestation: I reviewed the patient's medical records. Home Medications Current Medication List: was personally reviewed by me Laboratory Data Attestation: I reviewed the patient's lab results. Result diagrams: 02/10/21 06:20 02/10/21 06:20 Lab Results 02/09/21 02/09/21 02/09/21 Range/Units 18:25 18:25 18:59 WBC 6.57 (4.8-10.8) K/uL RBC 4.58 (4.2-5.4) M/uL Hgb 13.2 (12.0-16.0) g/dL POC Hgb 12.9 (12.0-16.0) g/dl Hct 39.3 (37-47) % POC Hct 38 (37-47) % MCV 85.8 (80-100) fL MCH 28.8 (25-34) pg MCHC 33.6 (32-36) g/dL RDW Std Deviation 48.2 H (36.4-46.3) fL RDW Coeff of Maye 15.2 H (11.5-14.5) % Plt Count 186 (130-400) K/uL MPV 11.4 H (7.4-10.4) fL Immature Gran % (Auto) 0.2 % Neut % (Auto) 47.5 % Lymph % (Auto) 31.4 % Dickson % (Auto) 11.6 % Eos % (Auto) 9.1 % Baso % (Auto) 0.2 % Neut # (Auto) 3.13 (1.4-6.5) K/uL Lymph # (Auto) 2.06 (1.2-3.4) K/uL Dickson # (Auto) 0.76 H (0.11-0.59) K/uL Eos # (Auto) 0.60 H (0-0.5) K/uL Baso # (Auto) 0.01 (0-0.2) K/uL Immature Gran # (Auto) 0.01 (0.00-0.02) K/uL POC Sodium 139 (135-144) mmol/L Sodium 138 (136-145) mmol/L POC Potassium 3.0 L (3.3-5.0) mmol/L Potassium 3.2 L (3.5-5.1) mmol/L POC Chloride 104 (101-112) mmol/L Chloride 106 (98-107) mmol/L Carbon Dioxide 23 (21-32) mmol/L POC Total CO2 22 L (24-31) mmol/L Anion Gap 9.0 (3-11) POC Anion Gap 17.0 (16-25) mmol/L POC BUN 33 H (7-18) mg/dl BUN 34 H (7-18) mg/dl Creatinine 2.90 H (0.6-1.2) mg/dl POC Creatinine 3.0 H (0.6-1.3) mg/dl Est Cr Clr Drug Dosing Not Reportable Est GFR ( Amer) 17.5 ml/min Est GFR (Non-Af Amer) 15.1 ml/min BUN/Creatinine Ratio 11.8 (10-20) Glucose 154 H (70-99) mg/dl POC Glucose (other) 149 H (70-99) mg/dl Calcium 8.9 (8.5-10.1) mg/dl POC Ioniz Calcium Carlos 1.20 (1.12-1.32) mmol/l Total Bilirubin 0.6 (0.2-1) mg/dl AST 13 L (15-37) U/L ALT 18 (12-78) U/L Alkaline Phosphatase 83 (45-117) U/L Troponin I < 0.015 (0-0.045) ng/ml Total Protein 7.1 (6.4-8.2) gm/dl Albumin 3.6 (3.4-5.0) gm/dl Globulin 3.5 (2.5-4.0) gm/dl Albumin/Globulin Ratio 1.0 (0.9-2) Lipase 102 (73-393) U/L COVID-19 Eval Order SARS-CoV-2 (PCR) (Negative) 02/09/21 02/09/21 Range/Units 20:51 20:51 WBC (4.8-10.8) K/uL RBC (4.2-5.4) M/uL Hgb (12.0-16.0) g/dL POC Hgb (12.0-16.0) g/dl Hct (37-47) % POC Hct (37-47) % MCV (80-100) fL MCH (25-34) pg MCHC (32-36) g/dL RDW Std Deviation (36.4-46.3) fL RDW Coeff of Maye (11.5-14.5) % Plt Count (130-400) K/uL MPV (7.4-10.4) fL Immature Gran % (Auto) % Neut % (Auto) % Lymph % (Auto) % Dickson % (Auto) % Eos % (Auto) % Baso % (Auto) % Neut # (Auto) (1.4-6.5) K/uL Lymph # (Auto) (1.2-3.4) K/uL Dickson # (Auto) (0.11-0.59) K/uL Eos # (Auto) (0-0.5) K/uL Baso # (Auto) (0-0.2) K/uL Immature Gran # (Auto) (0.00-0.02) K/uL POC Sodium (135-144) mmol/L Sodium (136-145) mmol/L POC Potassium (3.3-5.0) mmol/L Potassium (3.5-5.1) mmol/L POC Chloride (101-112) mmol/L Chloride (98-107) mmol/L Carbon Dioxide (21-32) mmol/L POC Total CO2 (24-31) mmol/L Anion Gap (3-11) POC Anion Gap (16-25) mmol/L POC BUN (7-18) mg/dl BUN (7-18) mg/dl Creatinine (0.6-1.2) mg/dl POC Creatinine (0.6-1.3) mg/dl Est Cr Clr Drug Dosing Est GFR ( Amer) ml/min Est GFR (Non-Af Amer) ml/min BUN/Creatinine Ratio (10-20) Glucose (70-99) mg/dl POC Glucose (other) (70-99) mg/dl Calcium (8.5-10.1) mg/dl POC Ioniz Calcium Carlos (1.12-1.32) mmol/l Total Bilirubin (0.2-1) mg/dl AST (15-37) U/L ALT (12-78) U/L Alkaline Phosphatase (45-117) U/L Troponin I (0-0.045) ng/ml Total Protein (6.4-8.2) gm/dl Albumin (3.4-5.0) gm/dl Globulin (2.5-4.0) gm/dl Albumin/Globulin Ratio (0.9-2) Lipase (73-393) U/L COVID-19 Eval Order Covid19 at [facility] SARS-CoV-2 (PCR) NEGATIVE (Negative) Imaging Data Radiologist's Impression: Abdomen/Pelvis CT 02/09/21 19:[address] WITHOUT CONTRAST CT DOSE: 939.00 mGy.cm HISTORY: Acute generalized abdominal pain ab/back pain TECHNIQUE: Multiaxial CT images of the abdomen and pelvis were performed without contrast. A dose lowering technique was utilized adhering to the principles of ALARA. COMPARISON STUDY: CT abdomen and pelvis 01/15/2021 FINDINGS: Mild subsegmental bibasilar atelectasis/scarring. No pneumatosis or pneumoperitoneum. The imaged inferior cardiac chambers are unremarkable. Coronary artery calcifications. The unenhanced spleen, and mildly atrophic pancreas are unremarkable. Cholecystectomy. Unremarkable liver. Unchanged thickening of the adrenal glands suggestive of hyperplasia. Stable 2 cm left adrenal adenoma. Unchanged 2 mm calcification of the interpolar right kidney. No ureteral calculi identified. No hydronephrosis. A proteinaceous or hemorrhagic cyst of the inferior pole right kidney redemonstrated. Bilateral renal cysts. Moderate bladder wall thickening with partial distention. Perivesicular stranding. Uterus appears surgically absent. Extensive calcified plaque the abdominal aorta without aneurysm. No adenopathy. Extensive colonic diverticulosis. No definite CT evidence of acute diverticulitis. There is subtle diffuse pericolonic stranding. The appendix is surgically absent. No bowel obstruction or bowel wall thickening. No ascites. Degenerative changes of the spine, pelvis and hips. IMPRESSION: 1. Subtle diffuse pericolonic stranding is suspicious for a nonspecific infectious or inflammatory colitis. 2. No bowel obstruction or bowel wall thickening. 3. Extensive colonic diverticulosis without CT evidence of acute diverticulitis. 4. Nonobstructing right nephrolithiasis. 5. Additional findings as above. ACT 112: Negative or not required by law. The above report was generated using voice recognition software. It may contain grammatical, syntax or spelling errors. Electronically signed by: Messi Stephens M.D. 02/09/2021 8:30 PM MDM Narrative Patient did present with concern for abdominal and back pain. The patient did have blood work completed was treated symptomatically and a CT of the abdomen pelvis was ordered. Patient does have blood work concerning for an CHRISTIAN. The patient does have normal white counts. The patient does have some hypokalemia. Patient is still a chronic smoker. CT abdomen pelvis was obtained noncontrast given the patient's acute kidney injury. Patient CT of the abdomen pelvis does show subtle diffuse pericolonic stranding which may indicate an inflammatory colitis without any bowel obstruction or diverticulitis. Given the patient's CHRISTIAN I did speak with the on-call hospitalist and the patient was admitted to the medicine service by Dr. Ch. Patient did have back pain but the patient has no bowel or bladder incontinence or retention. The patient does not have any evidence of any saddle anesthesia. Do not believe she requires MRI at this time. Impression & Plan Abdominal pain, COPD (chronic obstructive pulmonary disease), Lung cancer Discharge Plan Visit Data Chief Complaint: Abdominal Pain ED Provider: Osvaldo Gonzalez Discharge Problem: Abdominal pain, COPD (chronic obstructive pulmonary disease), Lung cancer Patient Disposition: Admitted As Inpatient Discharge Instructions Interventions: ED Discharge Assessment Last Done: 02/10/21 00:08
[2021-02-09] MEDS ORDERED: MoRPHine SULFATE 4 MG/ML 1 ML CARP\\VIAL IV STA (18:46)
[2021-02-09] MEDS ORDERED: SODIUM CHLORIDE 0.9% 1000ML 1,000 ML IV STA (18:46)
[2021-02-09] MEDS ORDERED: ONDANSETRON INJ 2 MG/ML 2 ML VIAL IV STA (18:46)
[2021-02-09 18:52] LABS: Basophils # (auto) 0.01 K/uL (0-0.2); Basophils % (auto) 0.2 %; Eosinophils % (auto) 9.1 %; Hematocrit (blood only) 39.3 % (37-47); Hemoglobin 13.2 g/dL (12.0-16.0); Immature Granulocytes # (auto) 0.01 K/uL (0.00-0.02); Immature Granulocytes % (auto) 0.2 %; Lymphocytes # (auto) 2.06 K/uL (1.2-3.4); Lymphocytes % (auto) 31.4 %; Mean Corpuscular Hemoglobin 28.8 pg (25-34); Mean Corpuscular Hgb Conc 33.6 g/dL (32-36); Mean Corpuscular Volume 85.8 fL (80-100); Mean Platelet Volume 11.4 fL (7.4-10.4); Monocytes # (auto) 0.76 K/uL (0.11-0.59); Monocytes % (auto) 11.6 %; Neutrophils # (auto) 3.13 K/uL (1.4-6.5); Neutrophils % (auto) 47.5 %; Platelet Count 186 K/uL (130-400); RDW Coefficient of Variation 15.2 % (11.5-14.5); RDW Standard Deviation 48.2 fL (36.4-46.3); Red Blood Count 4.58 M/uL (4.2-5.4); White Blood Count 6.57 K/uL (4.8-10.8)
[2021-02-09 19:11] LABS: iSTAT Hemoglobin 12.9 g/dl (12.0-16.0); iSTAT Ionized Calcium 1.2 mmol/l (1.12-1.32)
[2021-02-09 19:13] LABS: Alanine Aminotransferase 18 U/L (12-78); Albumin Level 3.6 gm/dl (3.4-5.0); Aspartate Aminotransferase 13 U/L (15-37); BUN Creatinine Ratio 11.8 (10-20); Blood Urea Nitrogen 34 mg/dl (7-18); Calcium 8.9 mg/dl (8.5-10.1); Carbon Dioxide 23 mmol/L (21-32); Chloride 106 mmol/L (98-107); Est GFR (African American) 17.5 ml/min; Est GFR (Non-African American) 15.1 ml/min; Glucose 154 mg/dl (70-99); Lipase 102 U/L (73-393); Potassium 3.2 mmol/L (3.5-5.1); Sodium 138 mmol/L (136-145)
[2021-02-09 19:18] LABS: Alkaline Phosphatase 83 U/L (45-117); Bilirubin,Total 0.6 mg/dl (0.2-1); Globulin 3.5 gm/dl (2.5-4.0); Total Protein 7.1 gm/dl (6.4-8.2); Troponin I < 0.015 ng/ml (0-0.045)
--- NOTE | 2021-02-09 20:32 | CT Scan Report ---
ABDOMEN AND PELVIS CT WITHOUT CONTRAST CT DOSE: 939.00 mGy.cm HISTORY: Acute generalized abdominal pain ab/back pain TECHNIQUE: Multiaxial CT images of the abdomen and pelvis were performed without contrast. A dose lo wering technique was utilized adhering to the principles of ALARA. COMPARISON STUDY: CT abdomen and pelvis 01/15/2021 FINDINGS: Mild subsegmental bibasilar atelectasis/scarring. No pneumatosis or pneumoperitoneum. The imaged infe rior cardiac chambers are unremarkable. Coronary artery calcifications. The unenhanced spleen, and mi ldly atrophic pancreas are unremarkable. Cholecystectomy. Unremarkable liver. Unchanged thickening of the adrenal glands suggestive of hyperplasia. Stable 2 cm left adrenal adenoma. Unchanged 2 mm calcification of the interpolar right kidney. No ureteral calculi identified. No hydro nephrosis. A proteinaceous or hemorrhagic cyst of the inferior pole right kidney redemonstrated. Bila teral renal cysts. Moderate bladder wall thickening with partial distention. Perivesicular stranding. Uterus appears surgically absent. Extensive calcified plaque the abdominal aorta without aneurysm. N o adenopathy. Extensive colonic diverticulosis. No definite CT evidence of acute diverticulitis. There is subtle di ffuse pericolonic stranding. The appendix is surgically absent. No bowel obstruction or bowel wall th ickening. No ascites. Degenerative changes of the spine, pelvis and hips. IMPRESSION: 1. Subtle diffuse pericolonic stranding is suspicious for a nonspecific infectious or inflammatory co litis. 2. No bowel obstruction or bowel wall thickening. 3. Extensive colonic diverticulosis without CT evidence of acute diverticulitis. 4. Nonobstructing right nephrolithiasis. 5. Additional findings as above. ACT 112: Negative or not required by law. The above report was generated using voice recognition software. It may contain grammatical, syntax o r spelling errors. Electronically signed by: Messi Stephens M.D. 02/09/2021 8:30 PM
--- NOTE | 2021-02-09 21:29 | History & Physical Report ---
Date of Service February 09, 2021 Assessment & Plan (1) Colitis: Plan: Infectious versus inflammatory as noted on CT Order stool culture and stool for C. difficile NPO except medications NSS at 80 mils per hour Hold on antibiotics until stool studies return Zofran 4 mg IV every 6 hours as needed Continue pantoprazole 40 mg in the evening (2) Acute kidney injury superimposed on CKD: Plan: Creatinine 2.90 upon admission, with range 1.61-1.99 LR 100 mils per hour, recheck laboratories in a.m. (3) Secondary adrenal insufficiency: Plan: Continue baseline hydrocortisone 20 mg p.o. every morning and 10 mg p.o. q. evening. Hold on stress dosing for now, due to issues with colitis (4) Hypertension: Plan: Continue carvedilol 6.25 mg p.o. twice daily with hold parameters (5) Hypothyroidism: Plan: Continue levothyroxine 112 mcg daily (6) Depression: Plan: Continue sertraline 100 mg every morning (7) COPD (chronic obstructive pulmonary disease): Plan: Continue albuterol HFA 2 puffs every 4 hours as needed and ipratropium bromide every 4 hours as needed Continue theophylline in the a.m., if level is normal tonight (8) Diabetes: Plan: Hold sitagliptin. Placed on Accu-Cheks before meals and at bedtime with NovoLog coverage per scale (9) Lung cancer: History of Present Illness Chief Complaint: The patient presents to the emergency department with complaint of lower abdominal pain and diarrhea over the past several days Primary Care Provider: Arthur Cruz The patient is a 75-year-old female with a past medical history including syncope and collapse, secondary to renal insufficiency, ACTH deficiency, adrenal adenoma, hypothyroidism, pancytopenia, CKD stage III, hypertension, depression, COPD, diabetes mellitus, arthritis and lung cancer. She presents with symptoms of several days of lower abdominal pain and diarrhea. Of note, she was admitted from 01/16-01/17 for acute kidney injury, which resolved with IV fluid rehydration. Work-up in the emergency department included a CT scan of the abdomen pelvis which showed generalized infectious or inflammatory colitis. Significant laboratories: Creatinine 2.90, with baseline 1.61-1.99. Potassium 3.2 and negative COVID-19 test. Allergies Allergy/AdvReac Type Severity Reaction Status Date / Time adhesive Allergy Unknown PULLS SKIN Verified 02/09/21 19:24 OFF Penicillins Allergy Unknown TONGUE Verified 02/09/21 19:24 SWELLING azithromycin AdvReac Unknown Nausea Verified 02/09/21 19:24 Home Medications Medication Instructions Recorded Confirmed Type carvedilol 6.25 mg tablet 6.25 mg PO BID 07/17/18 02/09/21 History folic acid 1 mg tablet 1 mg PO QAM 07/17/18 02/09/21 History ipratropium 20 mcg-albuterol 100 1 puff INHALATION Q4H PRN 07/17/18 02/09/21 History mcg/actuation mist for inhalation (Combivent Respimat) sertraline 100 mg tablet 100 mg PO QAM 07/17/18 02/09/21 History sitagliptin 50 mg tablet 50 mg PO QAM 07/17/18 02/09/21 History theophylline 300 mg 300 mg PO BID 07/17/18 02/09/21 History tablet,extended release,12 hr esomeprazole magnesium 20 mg 20 mg PO HS 06/28/20 02/09/21 History capsule,delayed release furosemide 20 mg tablet 20 mg PO DAILY PRN 06/28/20 02/09/21 History ondansetron HCl 4 mg tablet 4 mg PO Q6H PRN #6 tab 06/28/20 02/09/21 Rx (Zofran) hydrocortisone 10 mg tablet 10 mg PO UD #90 tab 07/30/20 02/09/21 Rx albuterol sulfate 2.5 mg CONTINUOUS NEBULIZATION Q4 01/15/21 02/09/21 History PRN atorvastatin 10 mg tablet 10 mg PO 3XWK 01/15/21 02/09/21 History icosapent ethyl 1 gram capsule 2 g PO BIDM 01/15/21 02/09/21 History (Vascepa) levothyroxine 112 mcg tablet 112 mcg PO DAILY 02/09/21 02/09/21 History Past Med/Surg History Medical History (Updated 02/10/21 @ 03:34 by Tramaine Connor MD) ACTH deficiency Acute kidney injury superimposed on chronic kidney disease Adrenal adenoma Arthritis Chronic renal failure, stage 3 (moderate) COPD (chronic obstructive pulmonary disease) COVID-19 Depression Diabetes Hypoxia Lung cancer Neutropenic fever Neutropenic fever Orthostatic hypotension Right knee DJD Secondary adrenal insufficiency SOB (shortness of breath) UTI (urinary tract infection) Surgical History Hx of right knee surgery Family History Other Diabetes Heart disease Hypertension Lung disease Social History Smoking Status: Current every day smoker Tobacco Type: Cigarettes Cigarettes Per Day: 5; Second Hand Exposure: No; Do You Dip or Chew Tobacco: No; Tobacco Cessation Education Requested by Patient: No Hx Alcohol Use: No Hx Substance Use: No Preferred Language: Citizen Of [place] Communication Ability: Effective 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 Beliefs That Will Affect Care: None marital status: / Current Living Situation: Family Current Living Situation Comment: grand daughter stays with PT How many Children do You have: 3 Other Information That Helps Us Care for You: No Feels Safe at Home: Yes Assistive Devices: Denture - Upper, Glasses and Walker Review of Systems Review of Systems: The patient denies chest pain, palpitations, shortness of breath, dyspnea on exertion, cough, lower extremity swelling, sore throat, fevers, chills, sweats, nausea, vomiting, blood in urine or stool, dysuria, urinary frequency or urgency, lightheadedness, dizziness, headache, memory loss, loss of consciousness, rash, abnormal bruising or bleeding, imbalance, focal or generalized weakness, numbness or tingling in arms or legs, generalized arthralgias or myalgias, back or neck pain, or night sweats. The review of systems is otherwise negative other than for that already noted above, and at least 10 systems have been reviewed. Physical Exam Physical Exam: The patient is awake, alert and oriented 3, well developed and well nourished, normocephalic and atraumatic, lying in bed and in no acute distress. HEENT--PERRL, EOMI, mucous membranes and oropharynx dry. Neck--supple. No JVD. No bruits. Thyroid normal, trachea midline, no adenopathy. Heart--normal S1 and S2. No murmurs, rubs or gallops. Lungs--clear bilaterally, no respiratory distress, no accessory muscle use. Abdomen--normal bowel sounds and soft. Nontender. Nondistended, no hernias or masses, no organomegaly. Extremities--no cyanosis or clubbing. No edema. There are good distal pulses b/l. Dermatologic--normal skin turgor, normal color, no abnormal lymph nodes, no rash. Neurologic--cranial nerves II through XII grossly intact. Rheumatologic--normal range of motion. Psychiatric--normal affect. Results & Data Results & Data ([facility]) Vital Signs (Past 12 Hours) Vital Signs Pulse Resp BP Pulse Ox 02/09/21 20:30 73 21 127/79 99 02/09/21 20:00 74 16 108/66 99 02/09/21 19:30 75 24 136/70 99 02/09/21 19:00 79 18 132/90 94 02/09/21 18:52 99 02/09/21 18:34 74 16 119/67 92 Laboratory Results Laboratory Results WBC 6.57 K/uL (4.8-10.8) 02/09/21 18:25 RBC 4.58 M/uL (4.2-5.4) 02/09/21 18:25 Hgb 13.2 g/dL (12.0-16.0) 02/09/21 18:25 POC Hgb 12.9 g/dl (12.0-16.0) 02/09/21 18:59 Hct 39.3 % (37-47) 02/09/21 18:25 POC Hct 38 % (37-47) 02/09/21 18:59 MCV 85.8 fL (80-100) 02/09/21 18:25 MCH 28.8 pg (25-34) 02/09/21 18:25 MCHC 33.6 g/dL (32-36) 02/09/21 18:25 RDW Std Deviation 48.2 fL (36.4-46.3) H 02/09/21 18:25 RDW Coeff of Maye 15.2 % (11.5-14.5) H 02/09/21 18:25 Plt Count 186 K/uL (130-400) 02/09/21 18:25 MPV 11.4 fL (7.4-10.4) H 02/09/21 18:25 Immature Gran % (Auto) 0.2 % 02/09/21 18:25 Neut % (Auto) 47.5 % 02/09/21 18:25 Lymph % (Auto) 31.4 % 02/09/21 18:25 [place] % (Auto) 11.6 % 02/09/21 18:25 Eos % (Auto) 9.1 % 02/09/21 18:25 Baso % (Auto) 0.2 % 02/09/21 18:25 Neut # (Auto) 3.13 K/uL (1.4-6.5) 02/09/21 18:25 Lymph # (Auto) 2.06 K/uL (1.2-3.4) 02/09/21 18:25 [place] # (Auto) 0.76 K/uL (0.11-0.59) H 02/09/21 18:25 Eos # (Auto) 0.60 K/uL (0-0.5) H 02/09/21 18:25 Baso # (Auto) 0.01 K/uL (0-0.2) 02/09/21 18:25 Immature Gran # (Auto) 0.01 K/uL (0.00-0.02) 02/09/21 18:25 POC Sodium 139 mmol/L (135-144) 02/09/21 18:59 Sodium 138 mmol/L (136-145) 02/09/21 18:25 POC Potassium 3.0 mmol/L (3.3-5.0) L 02/09/21 18:59 Potassium 3.2 mmol/L (3.5-5.1) L 02/09/21 18:25 POC Chloride 104 mmol/L (101-112) 02/09/21 18:59 Chloride 106 mmol/L (98-107) 02/09/21 18:25 Carbon Dioxide 23 mmol/L (21-32) 02/09/21 18:25 POC Total CO2 22 mmol/L (24-31) L 02/09/21 18:59 Anion Gap 9.0 (3-11) 02/09/21 18:25 POC Anion Gap 17.0 mmol/L (16-25) 02/09/21 18:59 POC BUN 33 mg/dl (7-18) H 02/09/21 18:59 BUN 34 mg/dl (7-18) H 02/09/21 18:25 Creatinine 2.90 mg/dl (0.6-1.2) H 02/09/21 18:25 POC Creatinine 3.0 mg/dl (0.6-1.3) H 02/09/21 18:59 Est Cr Clr Drug Dosing Not Reportable 02/09/21 18:25 Est GFR ( Amer) 17.5 ml/min 02/09/21 18:25 Est GFR (Non-Af Amer) 15.1 ml/min 02/09/21 18:25 BUN/Creatinine Ratio 11.8 (10-20) 02/09/21 18:25 Glucose 154 mg/dl (70-99) H 02/09/21 18:25 POC Glucose (other) 149 mg/dl (70-99) H 02/09/21 18:59 Calcium 8.9 mg/dl (8.5-10.1) 02/09/21 18:25 POC Ioniz Calcium Carlos 1.20 mmol/l (1.12-1.32) 02/09/21 18:59 Total Bilirubin 0.6 mg/dl (0.2-1) 02/09/21 18:25 AST 13 U/L (15-37) L 02/09/21 18:25 ALT 18 U/L (12-78) 02/09/21 18:25 Alkaline Phosphatase 83 U/L (45-117) 02/09/21 18:25 Troponin I < 0.015 ng/ml (0-0.045) 02/09/21 18:25 Total Protein 7.1 gm/dl (6.4-8.2) 02/09/21 18:25 Albumin 3.6 gm/dl (3.4-5.0) 02/09/21 18:25 Globulin 3.5 gm/dl (2.5-4.0) 02/09/21 18:25 Albumin/Globulin Ratio 1.0 (0.9-2) 02/09/21 18:25 Lipase 102 U/L (73-393) 02/09/21 18:25 COVID-19 Eval Order Covid19 at [facility] 02/09/21 20:51 SARS-CoV-2 (PCR) NEGATIVE (Negative) 02/09/21 20:51 Impressions Abdomen/Pelvis CT 02/09/21 19:[address] WITHOUT CONTRAST CT DOSE: 939.00 mGy.cm HISTORY: Acute generalized abdominal pain ab/back pain TECHNIQUE: Multiaxial CT images of the abdomen and pelvis were performed without contrast. A dose lowering technique was utilized adhering to the principles of ALARA. COMPARISON STUDY: CT abdomen and pelvis 01/15/2021 FINDINGS: Mild subsegmental bibasilar atelectasis/scarring. No pneumatosis or pneumoperitoneum. The imaged inferior cardiac chambers are unremarkable. Coronary artery calcifications. The unenhanced spleen, and mildly atrophic pancreas are unremarkable. Cholecystectomy. Unremarkable liver. Unchanged thickening of the adrenal glands suggestive of hyperplasia. Stable 2 cm left adrenal adenoma. Unchanged 2 mm calcification of the interpolar right kidney. No ureteral calculi identified. No hydronephrosis. A proteinaceous or hemorrhagic cyst of the inferior pole right kidney redemonstrated. Bilateral renal cysts. Moderate bladder wall thickening with partial distention. Perivesicular stranding. Uterus appears surgically absent. Extensive calcified plaque the abdominal aorta without aneurysm. No adenopathy. Extensive colonic diverticulosis. No definite CT evidence of acute diverticulitis. There is subtle diffuse pericolonic stranding. The appendix is surgically absent. No bowel obstruction or bowel wall thickening. No ascites. Degenerative changes of the spine, pelvis and hips. IMPRESSION: 1. Subtle diffuse pericolonic stranding is suspicious for a nonspecific infectious or inflammatory colitis. 2. No bowel obstruction or bowel wall thickening. 3. Extensive colonic diverticulosis without CT evidence of acute diverticulitis. 4. Nonobstructing right nephrolithiasis. 5. Additional findings as above. ACT 112: Negative or not required by law. The above report was generated using voice recognition software. It may contain grammatical, syntax or spelling errors. Electronically signed by: Messi Stephens M.D. 02/09/2021 8:30 PM Code Status & VTE Plan Code Status Full code VTE Prophylaxis Plan VTE Prophylaxis will be ordered: Yes PG Care Time/CCT Total # of Minutes Spent Total Time Spent with Patient: Total time spent is greater than 50% in coordination of care (as documented) at patient's floor/unit and/or counseling patient: Coding Level of Care Code INT OBSERVATION CARE 70M LVL 3 Diagnoses Colitis K52.9 Acute kidney injury superimposed on CKD N17.9; N18.9 Hypothyroidism E03.9 Depression F32.9 COPD (chronic obstructive pulmonary disease) J44.1 COPD type: COPD with acute exacerbation Diabetes E11.9 Lung cancer C34.90 Secondary adrenal insufficiency E27.49 Hypertension I10 (1) COPD (chronic obstructive pulmonary disease) COPD type: COPD with acute exacerbation Qualified Code(s): J44.1 - Chronic obstructive pulmonary disease with (acute) exacerbation
[2021-02-09] MEDS ORDERED: IPRATROPIUM BROMIDE/ALBUTEROL respimat INH INH PRN (23:52)
[2021-02-09] MEDS ORDERED: ONDANSETRON INJ 2 MG/ML 2 ML VIAL IV PRN (23:52)
[2021-02-10] MEDS ORDERED: Albuterol HFA 8 GM Inhaler (Combivent Respimat P&T Subs) INH PRN (00:15)
[2021-02-10] MEDS ORDERED: Ipratropium HFA Inhaler (Combivent Respimat P&T Subs) INH PRN (00:15)
[2021-02-10] MEDS: SODIUM CHLORIDE 0.9% 1000ML 1,000 ML IV SCH ×2 (00:19→12:50)
[2021-02-10] MEDS: carvediloL 6.25 MG TAB PO SCH ×3 (00:34→21:52)
[2021-02-10] MEDS ORDERED: DEXTROSE 50% 50 ML SYRINGE IV PRN (03:40)
[2021-02-10] MEDS ORDERED: GLUCOSE 10 TABS/TUBE PO PRN (03:40)
[2021-02-10] MEDS ORDERED: GLUCAGON FOR INJ 1 MG VIAL SQ PRN (03:40)
[2021-02-10] MEDS ORDERED: CARBOHYDRATES FOR HYPOGLYCEMIA PO PRN (03:40)
[2021-02-10] MEDS ORDERED: GLUCOSE 40% GEL 15 GM TUBE PO PRN (03:40)
[2021-02-10] MEDS ORDERED: Nursing to Pharmacy Communication SCH (04:00)
[2021-02-10] MEDS: INSULIN ASPART 100 UNITS/ML 3 ML PEN SC SCH ×3 (05:32→18:06)
[2021-02-10] MEDS: LEVOTHYROXINE SODIUM 112 MCG TABLET PO SCH (06:19)
[2021-02-10 06:56] LABS: Basophils # (auto) 0.01 K/uL (0-0.2); Basophils % (auto) 0.2 %; Eosinophils # (auto) 0.49 K/uL (0-0.5); Eosinophils % (auto) 9.2 %; Hematocrit (blood only) 35.3 % (37-47); Hemoglobin 11.8 g/dL (12.0-16.0); Immature Granulocytes # (auto) 0.01 K/uL (0.00-0.02); Immature Granulocytes % (auto) 0.2 %; Lymphocytes # (auto) 1.73 K/uL (1.2-3.4); Lymphocytes % (auto) 32.6 %; Mean Corpuscular Hemoglobin 29.1 pg (25-34); Mean Corpuscular Hgb Conc 33.4 g/dL (32-36); Mean Corpuscular Volume 87.2 fL (80-100); Monocytes # (auto) 0.55 K/uL (0.11-0.59); Monocytes % (auto) 10.4 %; Neutrophils # (auto) 2.52 K/uL (1.4-6.5); Neutrophils % (auto) 47.4 %; Platelet Count 160 K/uL (130-400); RDW Coefficient of Variation 15.2 % (11.5-14.5); Red Blood Count 4.05 M/uL (4.2-5.4); White Blood Count 5.31 K/uL (4.8-10.8)
[2021-02-10 07:46] LABS: Albumin Level 3.1 gm/dl (3.4-5.0); BUN Creatinine Ratio 11.7 (10-20); Calcium 8.4 mg/dl (8.5-10.1); Creatinine Clr Calc Pharmacy 20.1 ml/min; Est GFR (African American) 18.7 ml/min; Est GFR (Non-African American) 16.2 ml/min; Magnesium 2.1 mg/dl (1.8-2.4); Potassium 3.4 mmol/L (3.5-5.1)
[2021-02-10 07:49] LABS: Bilirubin,Total 0.6 mg/dl (0.2-1); Globulin 3.1 gm/dl (2.5-4.0); Total Protein 6.2 gm/dl (6.4-8.2)
[2021-02-10] MEDS: HYDROCORTISONE 10 MG TAB PO SCH ×2 (08:48→15:02)
[2021-02-10] MEDS: FOLIC ACID 1 MG TAB PO SCH (08:48)
[2021-02-10] MEDS: THEOPHYLLINE 300MG EXTENDED REL TAB PO SCH ×2 (08:49→20:58)
[2021-02-10] MEDS: HEPARIN SOD 5,000 UNIT/0.5 ML VIAL SQ SCH ×2 (08:49→20:57)
--- NOTE | 2021-02-10 09:42 | Gastrointestinal Consultation ---
Date of Consultation February 10, 2021 Assessment & Plan (1) Colitis: -Obtain C diff, stool culture, & gram stain -After stool culture is obtained, consider antibiotics given patient's immunocompromised status -IV fluids & supportive care per primary team -Further recommendations regarding treatment and management of diarrhea pending results of stool studies Supervising Physician Co-Signing Physician Notes Agree with HECTOR Ragsdale as above Abd: Soft, NT, ND, +BS Continue current therapy and supportive care Consider colonoscopy if no findings on stool studies. History of Present Illness Reason for Consultation: Colitis Attending Physician: Sin Rodriguez History of Present Illness Patient is a75 yo female with PMH of adrenal insufficiency, hypothyroidism, CKD3, Hypertension, depression, COPD, Diabetes, arthritis, & lung cancer cu rrently undergoing chemotherapy. She presented to the hospital after 1 week of frequent diarrhea. She notes liquid stool twice per hour, even at night. Last chemotherapy was in December 2020. She reports an occasional streak of blood in the stool, but acknowledges a history of hemorrhoids. She reports her last colonoscopy occurred within the past decade at [facility], though I do not have records at the time of my visit. She reports a history of an upper GI bleed in the past. She denies family history of GI malignancy. Her H/H is currently 11.8/35.3. Her CT scan indicated extensive diverticulosis without diverticulitis and subtle pericolonic stranding. Allergies Allergy/AdvReac Type Severity Reaction Status Date / Time adhesive Allergy Unknown PULLS SKIN Verified 02/09/21 19:24 OFF Penicillins Allergy Unknown TONGUE Verified 02/09/21 19:24 SWELLING azithromycin AdvReac Unknown Nausea Verified 02/09/21 19:24 Home Medications Medication Instructions Recorded Confirmed Type carvedilol 6.25 mg tablet 6.25 mg PO BID 07/17/18 02/09/21 History folic acid 1 mg tablet 1 mg PO QAM 07/17/18 02/09/21 History ipratropium 20 mcg-albuterol 100 1 puff INHALATION Q4H PRN 07/17/18 02/09/21 History mcg/actuation mist for inhalation (Combivent Respimat) sertraline 100 mg tablet 100 mg PO QAM 07/17/18 02/09/21 History sitagliptin 50 mg tablet 50 mg PO QAM 07/17/18 02/09/21 History theophylline 300 mg 300 mg PO BID 07/17/18 02/09/21 History tablet,extended release,12 hr esomeprazole magnesium 20 mg 20 mg PO HS 06/28/20 02/09/21 History capsule,delayed release furosemide 20 mg tablet 20 mg PO DAILY PRN 06/28/20 02/09/21 History ondansetron HCl 4 mg tablet 4 mg PO Q6H PRN #6 tab 06/28/20 02/09/21 Rx (Zofran) hydrocortisone 10 mg tablet 10 mg PO UD #90 tab 07/30/20 02/09/21 Rx albuterol sulfate 2.5 mg CONTINUOUS NEBULIZATION Q4 01/15/21 02/09/21 History PRN atorvastatin 10 mg tablet 10 mg PO 3XWK 01/15/21 02/09/21 History icosapent ethyl 1 gram capsule 2 g PO BIDM 01/15/21 02/09/21 History (Vascepa) levothyroxine 112 mcg tablet 112 mcg PO DAILY 02/09/21 02/09/21 History Patient History Medical History ACTH deficiency Acute kidney injury superimposed on chronic kidney disease Adrenal adenoma Arthritis Chronic renal failure, stage 3 (moderate) COPD (chronic obstructive pulmonary disease) COVID-19 Depression Diabetes Hypoxia Lung cancer Neutropenic fever Neutropenic fever Orthostatic hypotension Right knee DJD Secondary adrenal insufficiency SOB (shortness of breath) UTI (urinary tract infection) Surgical History Hx of right knee surgery Family History Other Diabetes Heart disease Hypertension Lung disease Social History Smoking Status: Current every day smoker Tobacco Type: Cigarettes Cigarettes Per Day: 5; Second Hand Exposure: No; Do You Dip or Chew Tobacco: No; Tobacco Cessation Education Requested by Patient: No Hx Alcohol Use: No Hx Substance Use: No Preferred Language: [place] Communication Ability: 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 Beliefs That Will Affect Care: None marital status: / Current Living Situation: Family Current Living Situation Comment: grand daughter stays with PT How many Children do You have: 4 Other Information That Helps Us Care for You: No Feels Safe at Home: Yes Assistive Devices: Denture - Upper, Glasses and Walker Review of Systems Constitutional: + fatigue; no fever and no chills Respiratory: + dyspnea on exertion Cardiovascular: no chest pain Gastrointestinal: + diarrhea/loose stools and + blood in stools (occasional streak of bright red blood); no abdominal pain Physical Exam Constitutional: no acute distress Respiratory: normal respiratory effort Gastrointestinal (Abdomen): normal bowel sounds, soft, nontender, no hepatosplenomegaly Musculoskeletal: Head/Neck/Chest: normocephalic Psychiatric: Orientation: alert and oriented x 3 Results & Data ([facility]) Vital Signs (Past 12 Hours) Vital Signs Temp Pulse Pulse Resp BP BP Pulse Ox 02/10/21 07:50 37.0 C 78 18 97/59 L 94 02/10/21 07:25 71 02/10/21 03:30 36.8 C 69 18 102/66 93 02/10/21 01:29 76 02/10/21 00:52 36.8 C 87 18 115/72 92 02/10/21 00:33 36.8 C 87 18 115/72 92 PG Care Time/CCT Total # of Minutes Spent Total Time Spent with Patient: Total time spent is greater than 50% in coordination of care (as documented) at patient's floor/unit and/or counseling patient: Coding Level of Care Code 55550 Initial Inpt Care Lvl 3 Diagnoses Colitis K52.9
[2021-02-10] MEDS: SERTRALINE HCL 100 MG TABLET PO SCH (12:47)
[2021-02-10] MEDS: PANTOprazole 40 MG TAB PO SCH (20:59)
--- NOTE | 2021-02-10 21:23 | Hospitalist Progress Note ---
Date of Service February 10, 2021 Assessment & Plan (1) Colitis: Plan: Infectious versus inflammatory as noted on CT Order stool culture and stool for C. difficile NPO except medications NSS at 80 mils per hour Hold on antibiotics until stool studies return Zofran 4 mg IV every 6 hours as needed Continue pantoprazole 40 mg in the evening Will consult GI as patient may require conlonoscopy. will continue to monitor. (2) Acute kidney injury superimposed on CKD: Plan: Creatinine 2.90 upon admission, with range 1.61-1.99 LR 100 mils per hour, recheck laboratories in a.m. (3) Secondary adrenal insufficiency: Plan: Continue baseline hydrocortisone 20 mg p.o. every morning and 10 mg p.o. q. evening. Hold off on stress dosing for now, due to issues with colitis (4) Hypertension: Plan: Continue carvedilol 6.25 mg p.o. twice daily with hold parameters (5) Hypothyroidism: Plan: Continue levothyroxine 112 mcg daily (6) Depression: Plan: Continue sertraline 100 mg every morning (7) COPD (chronic obstructive pulmonary disease): Plan: Continue albuterol HFA 2 puffs every 4 hours as needed and ipratropium bromide every 4 hours as needed Continue theophylline in the a.m., if level is normal tonight (8) Diabetes: Plan: Hold sitagliptin. Placed on Accu-Cheks before meals and at bedtime with NovoLog coverage per scale (9) Lung cancer: Admission and Anticipated Discharge Date Admission Date: February 09, 2021 Subjective Patient reports having no improvement from yesterday and continues to have intermittent abdominal pain. Review of Systems Review of Systems: All systems reviewed & are unremarkable except as noted in HPI & below Physical Exam Physical Exam: The patient is awake, alert and oriented 3, well developed and well nourished, normocephalic and atraumatic, lying in bed and in no acute distress. HEENT--PERRL, EOMI, mucous membranes and oropharynx dry. Neck--supple. No JVD. No bruits. Thyroid normal, trachea midline, no adenopathy. Heart--normal S1 and S2. No murmurs, rubs or gallops. Lungs--clear bilaterally, no respiratory distress, no accessory muscle use. Abdomen--normal bowel sounds and soft. tender to deep palpation. Nondistended, no hernias or masses, no organomegaly. Extremities--no cyanosis or clubbing. No edema. There are good distal pulses b/l. Dermatologic--normal skin turgor, normal color, no abnormal lymph nodes, no rash. Neurologic--cranial nerves II through XII grossly intact. Rheumatologic--normal range of motion. Psychiatric--normal affect. Results & Data Results & Data ([facility]) Vital Signs (Past 12 Hours) Vital Signs Temp Pulse Pulse Resp BP BP Pulse Ox 02/10/21 19:00 37.0 C 74 18 118/78 96 02/10/21 15:44 36.9 C 76 18 107/67 94 02/10/21 15:26 82 02/10/21 11:54 37.2 C 91 H 18 104/65 92 PG Care Time/CCT Total # of Minutes Spent Total Time Spent with Patient: Total time spent is greater than 50% in coordination of care (as documented) at patient's floor/unit and/or counseling patient: Coding Level of Care Code 68807 Subseq Hosp Care Lvl 2 Diagnoses Colitis K52.9 Acute kidney injury superimposed on CKD N17.9; N18.9 Secondary adrenal insufficiency E27.49 Hypertension I10 Hypothyroidism E03.9 Depression F32.9 COPD (chronic obstructive pulmonary disease) J44.9 COPD type: unspecified COPD Diabetes E11.9 Lung cancer C34.90 Laterality: unspecified laterality Lung location: unspecified part of lung Time Spent (min) 25 (1) Lung cancer Laterality: unspecified laterality Lung location: unspecified part of lung Qualified Code(s): C34.90 - Malignant neoplasm of unspecified part of unspecified bronchus or lung (2) COPD (chronic obstructive pulmonary disease) COPD type: unspecified COPD Qualified Code(s): J44.9 - Chronic obstructive pulmonary disease, unspecified
[2021-02-11] MEDS: INSULIN ASPART 100 UNITS/ML 3 ML PEN SC SCH ×5 (00:50→23:39)
[2021-02-11] MEDS: SODIUM CHLORIDE 0.9% 1000ML 1,000 ML IV SCH ×2 (00:51→12:29)
[2021-02-11] MEDS: LEVOTHYROXINE SODIUM 112 MCG TABLET PO SCH (05:44)
[2021-02-11 06:27] LABS: Basophils # (auto) 0.01 K/uL (0-0.2); Basophils % (auto) 0.2 %; Eosinophils # (auto) 0.51 K/uL (0-0.5); Eosinophils % (auto) 10.7 %; Hematocrit (blood only) 33.1 % (37-47); Immature Granulocytes # (auto) 0.02 K/uL (0.00-0.02); Immature Granulocytes % (auto) 0.4 %; Lymphocytes % (auto) 37.7 %; Mean Corpuscular Hemoglobin 28.6 pg (25-34); Mean Corpuscular Hgb Conc 33.2 g/dL (32-36); Mean Corpuscular Volume 86.2 fL (80-100); Mean Platelet Volume 10.9 fL (7.4-10.4); Monocytes # (auto) 0.45 K/uL (0.11-0.59); Monocytes % (auto) 9.4 %; Neutrophils # (auto) 1.98 K/uL (1.4-6.5); Neutrophils % (auto) 41.6 %; Platelet Count 168 K/uL (130-400); RDW Coefficient of Variation 15.4 % (11.5-14.5); RDW Standard Deviation 48.6 fL (36.4-46.3); Red Blood Count 3.84 M/uL (4.2-5.4); White Blood Count 4.77 K/uL (4.8-10.8)
[2021-02-11 06:55] LABS: BUN Creatinine Ratio 13.9 (10-20); Calcium 8.1 mg/dl (8.5-10.1); Creatinine Clr Calc Pharmacy 26.2 ml/min; Est GFR (African American) 25.7 ml/min; Est GFR (Non-African American) 22.2 ml/min; Magnesium 2.1 mg/dl (1.8-2.4); Potassium 3.2 mmol/L (3.5-5.1)
[2021-02-11 06:58] LABS: Bilirubin,Total 0.5 mg/dl (0.2-1); Globulin 2.9 gm/dl (2.5-4.0); Total Protein 5.9 gm/dl (6.4-8.2)
[2021-02-11] MEDS: FOLIC ACID 1 MG TAB PO SCH (08:46)
[2021-02-11] MEDS: SERTRALINE HCL 100 MG TABLET PO SCH (08:46)
[2021-02-11] MEDS: carvediloL 6.25 MG TAB PO SCH ×2 (08:47→20:28)
[2021-02-11] MEDS: HEPARIN SOD 5,000 UNIT/0.5 ML VIAL SQ SCH ×2 (08:47→20:29)
[2021-02-11] MEDS: HYDROCORTISONE 10 MG TAB PO SCH ×2 (08:47→13:25)
[2021-02-11] MEDS: THEOPHYLLINE 300MG EXTENDED REL TAB PO SCH ×2 (08:48→20:29)
--- NOTE | 2021-02-11 09:16 | Gastroenterology Progress Note ---
Date of Service February 11, 2021 Assessment & Plan (1) Colitis: Plan: C diff negative and stool culture pending. -If no obvious infection based on results of stool culture, patient should consider colonoscopy for further evaluation of diarrhea, however she is not sure that she would be willing to proceed with this at present. Admission and Anticipated Discharge Date Admission Date: February 09, 2021 Supervising Physician Co-Signing Physician Notes Agree with HECTOR Ragsdale as above Abd: Soft, NT, ND, +BS Patient would like to proceed with colonoscopy tomorrow Bowel prep tonight NPO following bowel prep Continue current therapy and supportive care. Subjective Patient is a 75 yo female with diarrhea and pericolonic stranding noted on CT scan. She had a negative C diff study yesterday. Stool culture & gram stain are pending. H/H 11.0/33.1. Patient reports fatigue. She notes one loose stool this AM thus far, which is a decreased frequency from previous. She denies abdominal pain. She offers no further complaints. She is not sure she would be interested in pursuing a colonoscopy. K is decreased at 3.2 this AM. H/H 11.0/33.1. BUN/Cr 29/2.11. Review of Systems Constitutional: + fatigue Gastrointestinal: + diarrhea/loose stools Physical Exam Constitutional: no acute distress Gastrointestinal (Abdomen): Inspection/Auscultation: abdomen normal to inspection and normal bowel sounds Percussion/Palpation: abdomen soft; abdomen nontender Results & Data Results & Data ([facility]) Vital Signs (Past 12 Hours) Vital Signs Temp Pulse Pulse Resp BP BP Pulse Ox 02/11/21 07:50 74 02/11/21 07:25 36.9 C 76 16 122/71 97 02/11/21 04:00 36.9 C 72 18 111/63 95 02/10/21 23:21 77 02/10/21 23:00 37.2 C 70 18 104/69 96 PG Care Time/CCT Total # of Minutes Spent Total Time Spent with Patient: Total time spent is greater than 50% in coordination of care (as documented) at patient's floor/unit and/or counseling patient: Coding Level of Care Code 56453 Subseq Hosp Care Lvl 3 Diagnoses Colitis K52.9
[2021-02-11] MEDS: POTASSIUM CHLORIDE 40 MEQ in SODIUM CHLORIDE 0.9% 1000ML 1,000 ML IV SCH (15:57)
[2021-02-11] MEDS ORDERED: bisacodyL 5 MG TABEC PO ONE (17:01)
[2021-02-11] MEDS: POLYETHYLENE (MIRALAX) 17 GM PACK PO SCH (18:11)
[2021-02-11] MEDS: PANTOprazole 40 MG TAB PO SCH (20:28)
--- NOTE | 2021-02-11 21:30 | Hospitalist Progress Note ---
Date of Service February 11, 2021 Assessment & Plan (1) Colitis: Plan: Infectious versus inflammatory as noted on CT Order stool culture and stool for C. difficile NPO except medications NSS at 80 mils per hour Hold on antibiotics until stool studies return Zofran 4 mg IV every 6 hours as needed Continue pantoprazole 40 mg in the evening Will consult GI as patient may require conlonoscopy. Patient is now interested in a colonoscpy. will discus with GI: plan for prep tonight and colonoscopy in AM. (2) Acute kidney injury superimposed on CKD: Plan: Creatinine 2.90 upon admission, with range 1.61-1.99 LR 100 mils per hour, recheck laboratories in a.m. improved to 2.11 (3) Secondary adrenal insufficiency: Plan: Continue baseline hydrocortisone 20 mg p.o. every morning and 10 mg p.o. q. evening. Hold off on stress dosing for now, due to issues with colitis (4) Hypertension: Plan: Continue carvedilol 6.25 mg p.o. twice daily with hold parameters (5) Hypothyroidism: Plan: Continue levothyroxine 112 mcg daily (6) Depression: Plan: Continue sertraline 100 mg every morning (7) COPD (chronic obstructive pulmonary disease): Plan: Continue albuterol HFA 2 puffs every 4 hours as needed and ipratropium bromide every 4 hours as needed Continue theophylline in the a.m., if level is normal tonight (8) Diabetes: Plan: Hold sitagliptin. Placed on Accu-Cheks before meals and at bedtime with NovoLog coverage per scale (9) Lung cancer: Admission and Anticipated Discharge Date Admission Date: February 09, 2021 Subjective Patient reports mild improvement. She is now interested shun colonoscopy. Review of Systems Review of Systems: All systems reviewed & are unremarkable except as noted in HPI & below Physical Exam Physical Exam: The patient is awake, alert and oriented 3, well developed and well nourished, normocephalic and atraumatic, lying in bed and in no acute distress. HEENT--PERRL, EOMI, mucous membranes and oropharynx dry. Neck--supple. No JVD. No bruits. Thyroid normal, trachea midline, no adenopathy. Heart--normal S1 and S2. No murmurs, rubs or gallops. Lungs--clear bilaterally, no respiratory distress, no accessory muscle use. Abdomen--normal bowel sounds and soft. tender to deep palpation. Nondistended, no hernias or masses, no organomegaly. Extremities--no cyanosis or clubbing. No edema. There are good distal pulses b/l. Dermatologic--normal skin turgor, normal color, no abnormal lymph nodes, no rash. Neurologic--cranial nerves II through XII grossly intact. Rheumatologic--normal range of motion. Psychiatric--normal affect. Results & Data Results & Data ([facility]) Vital Signs (Past 12 Hours) Vital Signs Temp Pulse Pulse Resp BP Pulse Ox 02/11/21 18:53 36.4 C L 82 16 123/67 98 02/11/21 15:39 36.8 C 77 16 126/76 94 02/11/21 14:20 79 02/11/21 11:26 36.5 C 71 16 112/69 95 PG Care Time/CCT Total # of Minutes Spent Total Time Spent with Patient: Total time spent is greater than 50% in coordination of care (as documented) at patient's floor/unit and/or counseling patient: Coding Level of Care Code 01090 Subseq Hosp Care Lvl 2 Diagnoses Colitis K52.9 Acute kidney injury superimposed on CKD N17.9; N18.9 Secondary adrenal insufficiency E27.49 Hypertension I10 Hypothyroidism E03.9 Depression F32.9 COPD (chronic obstructive pulmonary disease) J44.9 COPD type: unspecified COPD Diabetes E11.9 Lung cancer C34.90 Laterality: unspecified laterality Lung location: unspecified part of lung Time Spent (min) 25 (1) COPD (chronic obstructive pulmonary disease) COPD type: unspecified COPD Qualified Code(s): J44.9 - Chronic obstructive pulmonary disease, unspecified (2) Lung cancer Laterality: unspecified laterality Lung location: unspecified part of lung Qualified Code(s): C34.90 - Malignant neoplasm of unspecified part of unspecified bronchus or lung
[2021-02-12] MEDS: POLYETHYLENE (MIRALAX) 17 GM PACK PO SCH (03:15)
[2021-02-12] MEDS: POTASSIUM CHLORIDE 40 MEQ in SODIUM CHLORIDE 0.9% 1000ML 1,000 ML IV SCH ×2 (04:46→16:31)
[2021-02-12] MEDS: LEVOTHYROXINE SODIUM 112 MCG TABLET PO SCH (05:47)
[2021-02-12] MEDS: INSULIN ASPART 100 UNITS/ML 3 ML PEN SC SCH ×4 (05:47→20:39)
[2021-02-12 08:05] LABS: Basophils # (auto) 0.01 K/uL (0-0.2); Basophils % (auto) 0.2 %; Eosinophils # (auto) 0.63 K/uL (0-0.5); Eosinophils % (auto) 12.4 %; Hematocrit (blood only) 32.6 % (37-47); Hemoglobin 10.7 g/dL (12.0-16.0); Immature Granulocytes # (auto) 0.02 K/uL (0.00-0.02); Immature Granulocytes % (auto) 0.4 %; Lymphocytes # (auto) 1.57 K/uL (1.2-3.4); Lymphocytes % (auto) 30.8 %; Mean Corpuscular Hemoglobin 28.2 pg (25-34); Mean Corpuscular Hgb Conc 32.8 g/dL (32-36); Mean Platelet Volume 10.4 fL (7.4-10.4); Monocytes # (auto) 0.47 K/uL (0.11-0.59); Monocytes % (auto) 9.2 %; Neutrophils # (auto) 2.39 K/uL (1.4-6.5); Platelet Count 169 K/uL (130-400); RDW Coefficient of Variation 15.5 % (11.5-14.5); RDW Standard Deviation 49.3 fL (36.4-46.3); Red Blood Count 3.79 M/uL (4.2-5.4); White Blood Count 5.09 K/uL (4.8-10.8)
[2021-02-12 08:46] LABS: Bilirubin,Total 0.5 mg/dl (0.2-1); Calcium 8.2 mg/dl (8.5-10.1); Creatinine Clr Calc Pharmacy 32.7 ml/min; Est GFR (African American) 33.6 ml/min; Potassium 3.3 mmol/L (3.5-5.1)
[2021-02-12] MEDS: HEPARIN SOD 5,000 UNIT/0.5 ML VIAL SQ SCH ×2 (08:59→20:39)
--- NOTE | 2021-02-12 10:02 | History & Physical Bridge Note ---
Date of Service February 12, 2021 History & Physical Bridge Note I have examined the patient, reviewed the History & Physical and in the interval since the performance of the History & Physical I have noted the following changes of clinical significance: no changes noted. Patient is having liquid stool. She has been NPO since prior to midnight (other than prep). Proceed with colonoscopy today. Supervising Physician Co-Signing Physician Notes Agree with HECTOR Ragsdale as above Abd: Soft, NT, ND, +BS Continue current therapy and supportive care Proceed with colonoscopy now.
[2021-02-12] MEDS: HYDROCORTISONE 10 MG TAB PO SCH ×2 (10:34→16:08)
[2021-02-12] MEDS: SERTRALINE HCL 100 MG TABLET PO SCH (10:35)
[2021-02-12] MEDS: FOLIC ACID 1 MG TAB PO SCH (10:36)
[2021-02-12] MEDS: carvediloL 6.25 MG TAB PO SCH ×2 (10:36→20:40)
[2021-02-12] MEDS: THEOPHYLLINE 300MG EXTENDED REL TAB PO SCH ×2 (10:36→20:40)
[2021-02-12] MEDS ORDERED: PROPOFOL IV EMULSION 10 MG/ML 20 ML VIAL IV ONE ×2 (10:52→11:35)
[2021-02-12] MEDS ORDERED: LIDOCAINE 2% 2 ML VIAL/AMP(20MG/ML) INFIL ONE (10:52)
--- NOTE | 2021-02-12 10:56 | Anesthesiology Consultation ---
Date of Service February 12, 2021 History Surgery Operation Date: 02/11/21 17:00 Proposed Procedures p Colonoscopy Dr. Rahul Malin Case, DO Operation Date: 02/12/21 16:00 Proposed Procedures p Colonoscopy Dr. Rahul Ji. Case, DO Height/Weight Height: 5 ft 6 in Weight: 94.1 kg Allergies Allergy/AdvReac Type Severity Reaction Status Date / Time adhesive Allergy Unknown PULLS SKIN Verified 02/09/21 19:24 OFF Penicillins Allergy Unknown TONGUE Verified 02/09/21 19:24 SWELLING azithromycin AdvReac Unknown Nausea Verified 02/09/21 19:24 Medications Home Medications Medication Instructions Recorded Confirmed Last Taken carvedilol 6.25 mg tablet 6.25 mg PO BID 07/17/18 02/09/21 02/09/21 folic acid 1 mg tablet 1 mg PO QAM 07/17/18 02/09/21 02/09/21 ipratropium 20 mcg-albuterol 100 1 puff INHALATION Q4H PRN 07/17/18 02/09/21 02/09/21 mcg/actuation mist for inhalation (Combivent Respimat) sertraline 100 mg tablet 100 mg PO QAM 07/17/18 02/09/21 02/09/21 sitagliptin 50 mg tablet 50 mg PO QAM 07/17/18 02/09/21 02/09/21 theophylline 300 mg 300 mg PO BID 07/17/18 02/09/21 02/09/21 tablet,extended release,12 hr esomeprazole magnesium 20 mg 20 mg PO HS 06/28/20 02/09/21 02/08/21 capsule,delayed release furosemide 20 mg tablet 20 mg PO DAILY PRN 06/28/20 02/09/21 01/15/21 ondansetron HCl 4 mg tablet 4 mg PO Q6H PRN #6 tab 06/28/20 02/09/21 07/16/20 (Zofran) hydrocortisone 10 mg tablet 10 mg PO UD #90 tab 07/30/20 02/09/21 Unknown albuterol sulfate 2.5 mg CONTINUOUS NEBULIZATION Q4 01/15/21 02/09/21 Unknown PRN atorvastatin 10 mg tablet 10 mg PO 3XWK 01/15/21 02/09/21 02/09/21 icosapent ethyl 1 gram capsule 2 g PO BIDM 01/15/21 02/09/21 02/09/21 (Vascepa) levothyroxine 112 mcg tablet 112 mcg PO DAILY 02/09/21 02/09/21 02/09/21 Active Medications Generic Name Dose Route Start Last Admin Trade Name Parker PRN Reason Stop Dose Admin Carvedilol 6.25 mg 02/09/21 23:52 02/12/21 10:36 Carvedilol 6.25 Mg Tab PO 03/11/21 23:51 6.25 mg BID SIMONA Administration Folic Acid 1 mg 02/10/21 09:00 02/12/21 10:36 Folic Acid 1 Mg Tab PO 03/12/21 08:59 1 mg QAM SIMONA Administration Heparin Sodium (Porcine) 5,000 units 02/10/21 09:00 02/12/21 08:59 Heparin Sod 5,000 Unit/0.5 Ml Vial SQ 03/12/21 08:59 Not Given Q12 SIMONA Hydrocortisone 20 mg 02/10/21 09:00 02/12/21 10:34 Hydrocortisone 10 Mg Tab PO 03/12/21 08:59 20 mg QAM SIMONA Administration Hydrocortisone 10 mg 02/10/21 14:00 02/11/21 13:25 Hydrocortisone 10 Mg Tab PO 03/12/21 13:59 10 mg Q24H SIMONA Administration Potassium Chloride 40 meq/ 1,020 mls @ 80 mls/hr 02/11/21 15:45 02/12/21 04:46 Sodium Chloride IV 03/13/21 15:44 80 mls/hr .[id number] SIMONA Administration Insulin Aspart 0 units 02/10/21 06:00 02/12/21 05:47 Insulin Aspart 100 Units/Ml 3 Ml Pen SC 03/12/21 05:59 Not Given Q6 SIMONA Levothyroxine Sodium 112 mcg 02/10/21 06:30 02/12/21 05:47 Levothyroxine Sodium 112 Mcg Tablet PO 03/12/21 06:29 112 mcg DAILYBB SIMONA Administration Pantoprazole Sodium 40 mg 02/10/21 21:00 02/11/21 20:28 Pantoprazole 40 Mg Tab PO 03/12/21 20:59 40 mg HS SIMONA Administration Sertraline HCl 100 mg 02/10/21 09:00 02/12/21 10:35 Sertraline Hcl 100 Mg Tablet PO 03/12/21 08:59 100 mg QAM SIMONA Administration Theophylline 300 mg 02/10/21 09:00 02/12/21 10:36 Theophylline 300mg Extended Rel Tab PO 03/12/21 08:59 300 mg BID SIMONA Administration Past Medical History Medical History ACTH deficiency Acute kidney injury superimposed on chronic kidney disease Adrenal adenoma Arthritis Chronic renal failure, stage 3 (moderate) COPD (chronic obstructive pulmonary disease) COVID-19 Depression Diabetes Hypoxia Lung cancer Neutropenic fever Neutropenic fever Orthostatic hypotension Right knee DJD Secondary adrenal insufficiency SOB (shortness of breath) UTI (urinary tract infection) Admitted with possible colitis Past Family History Family History Other Diabetes Heart disease Hypertension Lung disease Past Surgical History Surgical History Hx of right knee surgery Social History Smoking Status: Current every day smoker tobacco type: cigarettes Smoking cigarettes per day: 5 Do You Dip or Chew Tobacco: No Hx Alcohol Use: No Hx Substance Use: No substance use type: does not use Physical Exam Vital Signs Last Vital Signs Temp 36.7 C 02/12/21 07:25 Pulse 64 02/12/21 07:25 Resp 16 02/12/21 07:25 BP 124/76 02/12/21 07:25 Pulse Ox 95 02/12/21 07:25 Testing Laboratory Results 02/12/21 07:27 02/12/21 07:27 02/10/21 Unknown Gram Stain - Final Stool Escherichia coli Shiga Toxins Test - Preliminary Stool Culture - Preliminary No Salmonella isolated to date, No Shigella isolated to date, No Campylobacter jejuni isolated to date. 02/12/21 02/11/21 05:46 23:36 POC Glucose 97 101 H
[2021-02-12] MEDS ORDERED: ONDANSETRON INJ 2 MG/ML 2 ML VIAL ONE (11:35)
--- NOTE | 2021-02-12 12:14 | GI REPORT ---
Patient Name: Kasie Rogel Procedure Date: 02/12/2021 11:21 AM Date of : 1945 Admit Type: Inpatient Age: 75 Gender: Female Attending MD: William Kay DO Procedure: Colonoscopy Providers: William Kay DO Referring MD: Sin Rodriguez M.d. Indications: Chronic diarrhea Medicines: Monitored Anesthesia Care Complications: No immediate complications. Estimated Blood Loss: Estimated blood loss: none. Procedure: Pre-Anesthesia Assessment: - Prior to the procedure, a History and Physical was performed, and patient medications and allergies were reviewed. The patient's tolerance of previous anesthesia was also reviewed. The risks and benefits of the procedure and the sedation options and risks were discussed with the patient. All questions were answered, and informed consent was obtained. Prior Anticoagulants: The patient has taken no previous anticoagulant or antiplatelet agents. ASA Grade Assessment: IV - A patient with severe systemic disease that is a constant threat to life. After reviewing the risks and benefits, the patient was deemed in satisfactory condition to undergo the procedure. After I obtained informed consent, the scope was passed under direct vision. Throughout the procedure, the patient's blood pressure, pulse, and oxygen saturations were monitored continuously. The Scope was introduced through the anus and advanced to the cecum, identified by appendiceal orifice and ileocecal valve. The colonoscopy was performed without difficulty. The patient tolerated the procedure well. The quality of the bowel preparation was good. The appendiceal orifice and the rectum were photographed. Findings: The perianal and digital rectal examinations were normal. Four sessile polyps were found in the sigmoid colon, transverse colon and ascending colon. The polyps were 5 to 12 mm in size. These polyps were removed with a hot snare. Resection and retrieval were complete. Several random biopsies were obtained with cold forceps for histology in the entire colon. Scattered small and large-mouthed diverticula were found in the entire colon. Non-bleeding internal hemorrhoids were found during retroflexion. The hemorrhoids were small. Impression: - Four 5 to 12 mm polyps in the sigmoid colon, in the transverse colon and in the ascending colon, removed with a hot snare. Resected and retrieved. - Diverticulosis in the entire examined colon. - Non-bleeding internal hemorrhoids. - Several random biopsies were obtained in the entire colon. Recommendation: - Resume previous diet. - Continue present medications. - Repeat colonoscopy for surveillance based on pathology results. - Return to primary care physician as previously scheduled. William Kay, DO 02/12/2021 12:14:29 PM This report has been signed electronically. Note Initiated On: 02/12/2021 11:21 AM Number of Addenda: 0 I attest to the content of the Intraoperative Record and orders documented therein, exceptions below {[id number]}
--- NOTE | 2021-02-12 14:06 | Anesthesiology Progress Note ---
Date of Service February 12, 2021 Anesthesia Post Procedure Vital Signs Vital Signs: Temp Pulse Pulse Resp BP BP Pulse Ox 02/12/21 12:40 78 16 137/63 92 02/12/21 12:25 77 16 137/72 98 02/12/21 12:10 77 17 119/72 96 02/12/21 11:09 36.2 C L 68 18 139/74 97 02/12/21 07:25 36.7 C 64 16 124/76 95 02/12/21 06:39 79 02/12/21 04:00 36.4 C L 76 20 130/70 97 02/11/21 23:19 37.1 C 73 20 136/71 97 02/11/21 18:53 36.4 C L 82 16 123/67 98 02/11/21 15:39 36.8 C 77 16 126/76 94 02/11/21 14:20 79 Pain Intensity Abdomen: Pain Intensity: 6 Back: Pain Intensity: 0 Transfer of Care Handoff Completed per policy Notes Mental Status: alert / awake / arousable and participated in evaluation Patient Amnestic to Procedure: Yes Nausea / Vomiting: adequately controlled Pain: adequately controlled Airway Patency, RR, SpO2: stable & adequate BP & HR: stable & adequate Hydration State: stable & adequate Anesthetic Complications: no major complications apparent and Pt Satisfied with anesthetic care
[2021-02-12] MEDS ORDERED: Nursing to Pharmacy Communication SCH (16:15)
[2021-02-12] MEDS: PANTOprazole 40 MG TAB PO SCH (20:40)
--- NOTE | 2021-02-12 21:55 | Hospitalist Progress Note ---
Date of Service February 12, 2021 Assessment & Plan (1) Colitis: Plan: Infectious versus inflammatory as noted on CT Order stool culture and stool for C. difficile NPO except medications NSS at 80 mils per hour Hold off on antibiotics until stool studies return Zofran 4 mg IV every 6 hours as needed Continue pantoprazole 40 mg in the evening Colonscopy completed: Four 5 to 12 mm polyps in the sigmoid colon, in the transverse colon and in the ascending colon, removed with a hot snare. Resected and retrieved. - Diverticulosis in the entire examined colon. - Non-bleeding internal hemorrhoids. - Several random biopsies were obtained in the entire colon. Will monitor overnight. Anticipate discharge tomorrow. (2) Acute kidney injury superimposed on CKD: Plan: Creatinine 2.90 upon admission, with range 1.61-1.99 LR 100 mils per hour, recheck laboratories in a.m. improved to 1.69 (3) Secondary adrenal insufficiency: Plan: Continue baseline hydrocortisone 20 mg p.o. every morning and 10 mg p.o. q. evening. Hold off on stress dosing for now, due to issues with colitis (4) Hypertension: Plan: Continue carvedilol 6.25 mg p.o. twice daily with hold parameters (5) Hypothyroidism: Plan: Continue levothyroxine 112 mcg daily (6) Depression: Plan: Continue sertraline 100 mg every morning (7) COPD (chronic obstructive pulmonary disease): Plan: Continue albuterol HFA 2 puffs every 4 hours as needed and ipratropium bromide every 4 hours as needed Continue theophylline in the a.m., if level is normal tonight (8) Diabetes: Plan: Hold sitagliptin. Placed on Accu-Cheks before meals and at bedtime with NovoLog coverage per scale (9) Lung cancer: Admission and Anticipated Discharge Date Admission Date: February 09, 2021 Subjective 75 yo female reports feeling tired. Her symptoms of her diarrhea appear to be improbving. She reports her abdominal pain has also decreased. Review of Systems Review of Systems: All systems reviewed & are unremarkable except as noted in HPI & below Physical Exam Physical Exam: The patient is awake, alert and oriented 3, well developed and well nourished, normocephalic and atraumatic, lying in bed and in no acute distress. HEENT--PERRL, EOMI, mucous membranes and oropharynx dry. Neck--supple. No JVD. No bruits. Thyroid normal, trachea midline, no adenopathy. Heart--normal S1 and S2. No murmurs, rubs or gallops. Lungs--clear bilaterally, no respiratory distress, no accessory muscle use. Abdomen--normal bowel sounds and soft. tender to deep palpation. Nondistended, no hernias or masses, no organomegaly. Extremities--no cyanosis or clubbing. No edema. There are good distal pulses b/l. Dermatologic--normal skin turgor, normal color, no abnormal lymph nodes, no rash. Neurologic--cranial nerves II through XII grossly intact. Rheumatologic--normal range of motion. Psychiatric--normal affect. Results & Data Results & Data ([facility] [place]) Vital Signs (Past 12 Hours) Vital Signs Temp Pulse Resp BP Pulse Ox 02/12/21 20:00 36.9 C 78 20 117/64 94 02/12/21 15:42 36.5 C 70 16 128/70 95 02/12/21 12:40 78 16 137/63 92 02/12/21 12:25 77 16 137/72 98 02/12/21 12:10 77 17 119/72 96 02/12/21 11:09 36.2 C L 68 18 139/74 97 PG Care Time/CCT Total # of Minutes Spent Total Time Spent with Patient: Total time spent is greater than 50% in coordination of care (as documented) at patient's floor/unit and/or counseling patient: Coding Level of Care Code 99878 Subseq Hosp Care Lvl 2 Diagnoses Colitis K52.9 Acute kidney injury superimposed on CKD N17.9; N18.9 Secondary adrenal insufficiency E27.49 Hypertension I10 Hypothyroidism E03.9 Depression F32.9 COPD (chronic obstructive pulmonary disease) J44.9 COPD type: unspecified COPD Diabetes E11.9 Lung cancer C34.90 Laterality: unspecified laterality Lung location: unspecified part of lung Time Spent (min) 25 (1) COPD (chronic obstructive pulmonary disease) COPD type: unspecified COPD Qualified Code(s): J44.9 - Chronic obstructive pulmonary disease, unspecified (2) Lung cancer Laterality: unspecified laterality Lung location: unspecified part of lung Qualified Code(s): C34.90 - Malignant neoplasm of unspecified part of unspecified bronchus or lung
[2021-02-13] MEDS: POTASSIUM CHLORIDE 40 MEQ in SODIUM CHLORIDE 0.9% 1000ML 1,000 ML IV SCH (05:53)
[2021-02-13] MEDS: LEVOTHYROXINE SODIUM 112 MCG TABLET PO SCH (05:53)
[2021-02-13] MEDS: carvediloL 6.25 MG TAB PO SCH ×2 (07:50→20:59)
[2021-02-13 08:22] LABS: Hematocrit (blood only) 32.2 % (37-47); Hemoglobin 10.6 g/dL (12.0-16.0); Mean Corpuscular Hemoglobin 28.4 pg (25-34); Mean Corpuscular Hgb Conc 32.9 g/dL (32-36); Mean Corpuscular Volume 86.3 fL (80-100); Platelet Count 161 K/uL (130-400); RDW Coefficient of Variation 15.8 % (11.5-14.5); RDW Standard Deviation 50.2 fL (36.4-46.3); Red Blood Count 3.73 M/uL (4.2-5.4); White Blood Count 5.49 K/uL (4.8-10.8)
[2021-02-13] MEDS: INSULIN ASPART 100 UNITS/ML 3 ML PEN SC SCH ×4 (08:24→21:03)
[2021-02-13] MEDS: HYDROCORTISONE 10 MG TAB PO SCH ×2 (08:36→14:36)
[2021-02-13] MEDS: SERTRALINE HCL 100 MG TABLET PO SCH (08:36)
[2021-02-13] MEDS: THEOPHYLLINE 300MG EXTENDED REL TAB PO SCH ×2 (08:36→20:59)
[2021-02-13] MEDS: HEPARIN SOD 5,000 UNIT/0.5 ML VIAL SQ SCH ×2 (08:37→21:00)
[2021-02-13] MEDS: FOLIC ACID 1 MG TAB PO SCH (08:37)
[2021-02-13 09:16] LABS: BUN Creatinine Ratio 8.9 (10-20); Calcium 7.9 mg/dl (8.5-10.1); Creatinine Clr Calc Pharmacy 40.6 ml/min; Est GFR (African American) 42.9 ml/min; Potassium 3.8 mmol/L (3.5-5.1)
--- NOTE | 2021-02-13 09:34 | Gastroenterology Progress Note ---
Date of Service February 13, 2021 Assessment & Plan (1) Diarrhea: (2) Colitis: Plan: Potential etiologies include but are not limited to viral infectious process given immunosuppression vs microscopic colitis vs treatment-related vs other. -Await colonoscopy biopsies -Given frequency of diarrhea and negative stool studies, would advise 1 Lomotil tablet up to 8 times daily prn to reduce the burden of her symptoms -Supportive care per primary team Admission and Anticipated Discharge Date Admission Date: February 09, 2021 Supervising Physician Co-Signing Physician Notes Agree with HECTOR Ragsdale as above Abd: Soft, NT, ND, +BS Discussed case with Dr. Ortiz of pathology, no official pathology report at present. He is doing more research as he feels there is some component of inflammation in the random colon biopsies, but no definitive pathology report at present. Continue Supportive care and current therapy now Subjective Patient is a 75 yo female with diarrhea. She underwent a colonoscopy on 02/12/21 that was unremarkable for acute issues to explain her diarrhea. She reports continued diarrhea that she has no control over. She denies abdominal pain. White blood cell count is within normal limits. K is normal at 3.8 this AM. Review of Systems Constitutional: + fatigue; no fever and no chills Gastrointestinal: + diarrhea/loose stools Physical Exam Constitutional: no acute distress Respiratory: normal respiratory effort Gastrointestinal (Abdomen): Inspection/Auscultation: abdomen normal to inspection Percussion/Palpation: abdomen soft; abdomen nontender Psychiatric: Orientation: alert and oriented x 3 Results & Data Results & Data ([facility]) Vital Signs (Past 12 Hours) Vital Signs Temp Pulse Pulse Resp BP Pulse Ox 02/13/21 07:37 36.7 C 68 18 162/89 H 96 02/13/21 07:00 63 02/13/21 04:01 36.3 C L 76 20 145/75 H 95 02/13/21 03:37 73 02/12/21 23:31 37.1 C 65 18 106/50 L 97 PG Care Time/CCT Total # of Minutes Spent Total Time Spent with Patient: Total time spent is greater than 50% in coordination of care (as documented) at patient's floor/unit and/or counseling patient: Coding Level of Care Code 66582 Subseq Hosp Care Lvl 2 Diagnoses Diarrhea R19.7 Colitis K52.9
[2021-02-13] MEDS: SODIUM CHLOR 0.45% + 20MEQ KCL 20 MEQ/1,000 ML BAG IV SCH ×2 (11:21→23:30)
[2021-02-13] MEDS: DIPHENOXYLATE/ATROPINE 2.5/0.025MG TAB PO PRN ×2 (11:28→20:55)
--- NOTE | 2021-02-13 20:40 | Hospitalist Progress Note ---
Date of Service February 13, 2021 Assessment & Plan (1) Colitis: Plan: Infectious versus inflammatory as noted on CT Order stool culture and stool for C. difficile NPO except medications NSS at 80 mils per hour Hold off on antibiotics until stool studies return Zofran 4 mg IV every 6 hours as needed Continue pantoprazole 40 mg in the evening Colonscopy completed: Four 5 to 12 mm polyps in the sigmoid colon, in the transverse colon and in the ascending colon, removed with a hot snare. Resected and retrieved. - Diverticulosis in the entire examined colon. - Non-bleeding internal hemorrhoids. - Several random biopsies were obtained in the entire colon. Will monitor overnight. Awaiting pathology. Appears to have inflammation. Added lomictal. (2) Acute kidney injury superimposed on CKD: Plan: Creatinine 2.90 upon admission, with range 1.61-1.99 stop IVF recheck laboratories in a.m. improved. (3) Secondary adrenal insufficiency: Plan: Continue baseline hydrocortisone 20 mg p.o. every morning and 10 mg p.o. q. evening. Hold off on stress dosing for now, due to issues with colitis (4) Hypertension: Plan: Continue carvedilol 6.25 mg p.o. twice daily with hold parameters (5) Hypothyroidism: Plan: Continue levothyroxine 112 mcg daily (6) Depression: Plan: Continue sertraline 100 mg every morning (7) COPD (chronic obstructive pulmonary disease): Plan: Continue albuterol HFA 2 puffs every 4 hours as needed and ipratropium bromide every 4 hours as needed Continue theophylline in the a.m., if level is normal tonight (8) Diabetes: Plan: Hold sitagliptin. Placed on Accu-Cheks before meals and at bedtime with NovoLog coverage per scale (9) Lung cancer: Admission and Anticipated Discharge Date Admission Date: February 09, 2021 Subjective Patient continues to have loose stools. Review of Systems Review of Systems: All systems reviewed & are unremarkable except as noted in HPI & below Physical Exam Physical Exam: The patient is awake, alert and oriented 3, well developed and well nourished, normocephalic and atraumatic, lying in bed and in no acute distress. HEENT--PERRL, EOMI, mucous membranes and oropharynx dry. Neck--supple. No JVD. No bruits. Thyroid normal, trachea midline, no adenopathy. Heart--normal S1 and S2. No murmurs, rubs or gallops. Lungs--clear bilaterally, no respiratory distress, no accessory muscle use. Abdomen--normal bowel sounds and soft. tender to deep palpation. Nondistended, no hernias or masses, no organomegaly. Extremities--no cyanosis or clubbing. No edema. There are good distal pulses b/l. Dermatologic--normal skin turgor, normal color, no abnormal lymph nodes, no rash. Neurologic--cranial nerves II through XII grossly intact. Rheumatologic--normal range of motion. Psychiatric--normal affect. Results & Data Results & Data ([facility]) Vital Signs (Past 12 Hours) Vital Signs Temp Pulse Pulse Pulse Pulse Pulse Resp 02/13/21 20:22 37.1 C 71 18 02/13/21 15:04 36.7 C 68 18 02/13/21 14:33 103 H 95 H 78 02/13/21 14:20 72 02/13/21 11:25 36.8 C 73 18 Resp Resp Resp BP BP Pulse Ox Pulse Ox 02/13/21 20:22 138/75 94 02/13/21 15:04 110/69 97 02/13/21 14:33 26 H 24 18 97 02/13/21 14:20 02/13/21 11:25 153/71 H 97 Pulse Ox Pulse Ox 02/13/21 20:22 02/13/21 15:04 02/13/21 14:33 97 96 02/13/21 14:20 02/13/21 11:25 PG Care Time/CCT Total # of Minutes Spent Total Time Spent with Patient: Total time spent is greater than 50% in coordination of care (as documented) at patient's floor/unit and/or counseling patient: Coding Level of Care Code 49522 Subseq Hosp Care Lvl 2 Diagnoses Colitis K52.9 Acute kidney injury superimposed on CKD N17.9; N18.9 Secondary adrenal insufficiency E27.49 Hypertension I10 Hypothyroidism E03.9 Depression F32.9 COPD (chronic obstructive pulmonary disease) J44.9 COPD type: unspecified COPD Diabetes E11.9 Lung cancer C34.90 Laterality: unspecified laterality Lung location: unspecified part of lung Time Spent (min) 25 (1) Lung cancer Laterality: unspecified laterality Lung location: unspecified part of lung Qualified Code(s): C34.90 - Malignant neoplasm of unspecified part of unspecified bronchus or lung (2) COPD (chronic obstructive pulmonary disease) COPD type: unspecified COPD Qualified Code(s): J44.9 - Chronic obstructive pulmonary disease, unspecified
[2021-02-13] MEDS: PANTOprazole 40 MG TAB PO SCH (20:59)
[2021-02-14] MEDS: LEVOTHYROXINE SODIUM 112 MCG TABLET PO SCH (06:04)
[2021-02-14] MEDS: HYDROCORTISONE 10 MG TAB PO SCH ×2 (09:14→12:28)
[2021-02-14] MEDS: carvediloL 6.25 MG TAB PO SCH ×2 (09:14→21:05)
[2021-02-14] MEDS: HEPARIN SOD 5,000 UNIT/0.5 ML VIAL SQ SCH ×2 (09:15→21:11)
[2021-02-14] MEDS: SERTRALINE HCL 100 MG TABLET PO SCH (09:15)
[2021-02-14] MEDS: THEOPHYLLINE 300MG EXTENDED REL TAB PO SCH ×2 (09:15→21:05)
[2021-02-14] MEDS: FOLIC ACID 1 MG TAB PO SCH (09:16)
[2021-02-14] MEDS: DIPHENOXYLATE/ATROPINE 2.5/0.025MG TAB PO PRN ×2 (09:16→21:34)
[2021-02-14] MEDS: INSULIN ASPART 100 UNITS/ML 3 ML PEN SC SCH ×4 (09:18→21:09)
[2021-02-14] MEDS: SODIUM CHLOR 0.45% + 20MEQ KCL 20 MEQ/1,000 ML BAG IV SCH (12:28)
--- NOTE | 2021-02-14 14:42 | Hospitalist Progress Note ---
Date of Service February 14, 2021 Assessment & Plan (1) Colitis: Plan: Infectious versus inflammatory as noted on CT Order stool culture and stool for C. difficile NPO except medications NSS at 80 mils per hour Hold off on antibiotics until stool studies return Zofran 4 mg IV every 6 hours as needed Continue pantoprazole 40 mg in the evening Colonscopy completed: Four 5 to 12 mm polyps in the sigmoid colon, in the transverse colon and in the ascending colon, removed with a hot snare. Resected and retrieved. - Diverticulosis in the entire examined colon. - Non-bleeding internal hemorrhoids. - Several random biopsies were obtained in the entire colon. Will monitor overnight. Awaiting pathology. Appears to have inflammation. Added lomictal. will add metamucil (2) Acute kidney injury superimposed on CKD: Plan: Creatinine 2.90 upon admission, with range 1.61-1.99 stop IVF recheck laboratories in a.m. improved. (3) Secondary adrenal insufficiency: Plan: Continue baseline hydrocortisone 20 mg p.o. every morning and 10 mg p.o. q. evening. Hold off on stress dosing for now, due to issues with colitis (4) Hypertension: Plan: Continue carvedilol 6.25 mg p.o. twice daily with hold parameters (5) Hypothyroidism: Plan: Continue levothyroxine 112 mcg daily (6) Depression: Plan: Continue sertraline 100 mg every morning (7) COPD (chronic obstructive pulmonary disease): Plan: Continue albuterol HFA 2 puffs every 4 hours as needed and ipratropium bromide every 4 hours as needed Continue theophylline in the a.m., if level is normal tonight (8) Diabetes: Plan: Hold sitagliptin. Placed on Accu-Cheks before meals and at bedtime with NovoLog coverage per scale (9) Lung cancer: Admission and Anticipated Discharge Date Admission Date: February 09, 2021 Subjective Patient reports that she continues to have diarrhea. Review of Systems Review of Systems: All systems reviewed & are unremarkable except as noted in HPI & below Physical Exam Physical Exam: The patient is awake, alert and oriented 3, well developed and well nourished, normocephalic and atraumatic, lying in bed and in no acute distress. HEENT--PERRL, EOMI, mucous membranes and oropharynx dry. Neck--supple. No JVD. No bruits. Thyroid normal, trachea midline, no adenopathy. Heart--normal S1 and S2. No murmurs, rubs or gallops. Lungs--clear bilaterally, no respiratory distress, no accessory muscle use. Abdomen--normal bowel sounds and soft. tender to deep palpation. Nondistended, no hernias or masses, no organomegaly. Extremities--no cyanosis or clubbing. No edema. There are good distal pulses b/l. Dermatologic--normal skin turgor, normal color, no abnormal lymph nodes, no rash. Neurologic--cranial nerves II through XII grossly intact. Rheumatologic--normal range of motion. Psychiatric--normal affect. Results & Data Results & Data ([facility]) Vital Signs (Past 12 Hours) Vital Signs Temp Pulse Pulse Resp BP Pulse Ox 02/14/21 11:00 36.8 C 70 18 105/57 L 94 02/14/21 08:00 36.9 C 70 18 123/70 95 02/14/21 07:49 64 02/14/21 05:13 37.1 C 70 18 124/75 97 PG Care Time/CCT Total # of Minutes Spent Total Time Spent with Patient: Total time spent is greater than 50% in coordination of care (as documented) at patient's floor/unit and/or counseling patient: Coding Level of Care Code 10395 Subseq Hosp Care Lvl 2 Diagnoses Colitis K52.9 Acute kidney injury superimposed on CKD N17.9; N18.9 Secondary adrenal insufficiency E27.49 Hypertension I10 Hypothyroidism E03.9 Depression F32.9 COPD (chronic obstructive pulmonary disease) J44.9 COPD type: unspecified COPD Diabetes E11.9 Lung cancer C34.90 Laterality: unspecified laterality Lung location: unspecified part of lung (1) Lung cancer Laterality: unspecified laterality Lung location: unspecified part of lung Qualified Code(s): C34.90 - Malignant neoplasm of unspecified part of unspecified bronchus or lung (2) COPD (chronic obstructive pulmonary disease) COPD type: unspecified COPD Qualified Code(s): J44.9 - Chronic obstructive pulmonary disease, unspecified
[2021-02-14 16:40] LABS: BUN Creatinine Ratio 7.5 (10-20); Creatinine Clr Calc Pharmacy 40.5 ml/min; Est GFR (African American) 43.3 ml/min; Est GFR (Non-African American) 37.4 ml/min; Potassium 3.6 mmol/L (3.5-5.1)
[2021-02-14] MEDS: PSYLLIUM 58.6% POWDER PACKET PO SCH (17:18)
[2021-02-14] MEDS: PANTOprazole 40 MG TAB PO SCH (21:05)
[2021-02-15] MEDS: LEVOTHYROXINE SODIUM 112 MCG TABLET PO SCH (06:20)
[2021-02-15] MEDS: DIPHENOXYLATE/ATROPINE 2.5/0.025MG TAB PO PRN ×2 (06:20→17:02)
[2021-02-15] MEDS: THEOPHYLLINE 300MG EXTENDED REL TAB PO SCH ×2 (08:46→21:20)
[2021-02-15] MEDS: SERTRALINE HCL 100 MG TABLET PO SCH (08:46)
[2021-02-15] MEDS: HYDROCORTISONE 10 MG TAB PO SCH ×2 (08:47→15:41)
[2021-02-15] MEDS: FOLIC ACID 1 MG TAB PO SCH (08:47)
[2021-02-15] MEDS: PSYLLIUM 58.6% POWDER PACKET PO SCH (08:48)
[2021-02-15] MEDS: carvediloL 6.25 MG TAB PO SCH ×2 (08:48→21:19)
[2021-02-15] MEDS: INSULIN ASPART 100 UNITS/ML 3 ML PEN SC SCH ×4 (08:50→21:18)
[2021-02-15] MEDS: HEPARIN SOD 5,000 UNIT/0.5 ML VIAL SQ SCH ×2 (08:51→21:20)
--- NOTE | 2021-02-15 16:46 | Hospitalist Progress Note ---
Date of Service February 15, 2021 Assessment & Plan (1) Colitis: Plan: Inflammatory as noted on CT Microscopic colitis noted on Biopsy Order stool culture and stool for C. difficile (negative) Treated with IVF. Held off antibiotics Zofran 4 mg IV every 6 hours as needed Continue pantoprazole 40 mg in the evening Colonscopy completed: Four 5 to 12 mm polyps in the sigmoid colon, in the transverse colon and in the ascending colon, removed with a hot snare. Resected and retrieved. - Diverticulosis in the entire examined colon. - Non-bleeding internal hemorrhoids. - Several random biopsies were obtained in the entire colon. 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 will try Budeosnide 9 mg PO daily. (2) Acute kidney injury superimposed on CKD: Plan: Creatinine 2.90 upon admission, with range 1.61-1.99 stop IVF recheck laboratories in a.m. improved. (3) Secondary adrenal insufficiency: Plan: Continue baseline hydrocortisone 20 mg p.o. every morning and 10 mg p.o. q. evening. Hold off on stress dosing for now, due to issues with colitis (4) Hypertension: Plan: Continue carvedilol 6.25 mg p.o. twice daily with hold parameters (5) Hypothyroidism: Plan: Continue levothyroxine 112 mcg daily (6) Depression: Plan: Continue sertraline 100 mg every morning (7) COPD (chronic obstructive pulmonary disease): Plan: Continue albuterol HFA 2 puffs every 4 hours as needed and ipratropium bromide every 4 hours as needed Continue theophylline in the a.m., if level is normal tonight (8) Diabetes: Plan: Hold sitagliptin. Placed on Accu-Cheks before meals and at bedtime with NovoLog coverage per scale (9) Lung cancer: Admission and Anticipated Discharge Date Admission Date: February 09, 2021 Subjective Patient reports having diarrhea six times. She reports that her syools are more formed. Review of Systems Review of Systems: All systems reviewed & are unremarkable except as noted in HPI & below Physical Exam Physical Exam: The patient is awake, alert and oriented 3, well developed and well nourished, normocephalic and atraumatic, lying in bed and in no acute distress. HEENT--PERRL, EOMI, mucous membranes and oropharynx dry. Neck--supple. No JVD. No bruits. Thyroid normal, trachea midline, no adenopathy. Heart--normal S1 and S2. No murmurs, rubs or gallops. Lungs--clear bilaterally, no respiratory distress, no accessory muscle use. Abdomen--normal bowel sounds and soft. tender to deep palpation. Nondistended, no hernias or masses, no organomegaly. Extremities--no cyanosis or clubbing. No edema. There are good distal pulses b/l. Dermatologic--normal skin turgor, normal color, no abnormal lymph nodes, no rash. Neurologic--cranial nerves II through XII grossly intact. Rheumatologic--normal range of motion. Psychiatric--normal affect. Results & Data Results & Data ([facility]) Vital Signs (Past 12 Hours) Vital Signs Temp Pulse Pulse Resp BP Pulse Ox 02/15/21 16:00 36.6 C 69 18 107/58 L 92 02/15/21 12:00 36.9 C 73 18 112/58 L 93 02/15/21 07:48 36.7 C 73 18 137/82 95 02/15/21 07:00 62 PG Care Time/CCT Total # of Minutes Spent Total Time Spent with Patient: Total time spent is greater than 50% in coordination of care (as documented) at patient's floor/unit and/or counseling patient: Coding Level of Care Code 01001 Subseq Hosp Care Lvl 2 Diagnoses Colitis K52.9 Acute kidney injury superimposed on CKD N17.9; N18.9 Secondary adrenal insufficiency E27.49 Hypertension I10 Hypothyroidism E03.9 Depression F32.9 COPD (chronic obstructive pulmonary disease) J44.9 COPD type: unspecified COPD Diabetes E11.9 Lung cancer C34.90 Laterality: unspecified laterality Lung location: unspecified part of lung (1) Lung cancer Laterality: unspecified laterality Lung location: unspecified part of lung Qualified Code(s): C34.90 - Malignant neoplasm of unspecified part of unspecified bronchus or lung (2) COPD (chronic obstructive pulmonary disease) COPD type: unspecified COPD Qualified Code(s): J44.9 - Chronic obstructive pulmonary disease, unspecified
[2021-02-15] MEDS: BUDESONIDE EC 3 MG CAP PO SCH (17:54)
[2021-02-15] MEDS: LIDOCAINE 5% 1 PATCH TD SCH (17:55)
[2021-02-15] MEDS: PANTOprazole 40 MG TAB PO SCH (21:20)
[2021-02-16] MEDS: LEVOTHYROXINE SODIUM 112 MCG TABLET PO SCH (06:19)
[2021-02-16] MEDS: INSULIN ASPART 100 UNITS/ML 3 ML PEN SC SCH ×4 (08:03→21:38)
[2021-02-16] MEDS: carvediloL 6.25 MG TAB PO SCH ×2 (08:04→20:07)
[2021-02-16] MEDS: BUDESONIDE EC 3 MG CAP PO SCH (08:04)
[2021-02-16] MEDS: FOLIC ACID 1 MG TAB PO SCH (08:04)
[2021-02-16] MEDS: SERTRALINE HCL 100 MG TABLET PO SCH (08:05)
[2021-02-16] MEDS: HYDROCORTISONE 10 MG TAB PO SCH ×2 (08:05→14:38)
[2021-02-16] MEDS: PSYLLIUM 58.6% POWDER PACKET PO SCH (08:05)
[2021-02-16] MEDS: LIDOCAINE 5% 1 PATCH TD SCH (08:06)
[2021-02-16] MEDS: THEOPHYLLINE 300MG EXTENDED REL TAB PO SCH ×2 (08:06→20:07)
[2021-02-16] MEDS: HEPARIN SOD 5,000 UNIT/0.5 ML VIAL SQ SCH ×2 (08:06→20:08)
--- NOTE | 2021-02-16 09:33 | Communication Note ---
Date of Service: February 16, 2021 Patient's colonoscopy pathology returned indicating a microscopic colitis. Please proceed with the following recommendations for treatment of this issue: -Lactose-free diet -Avoid NSAIDs -Budesonide 9 mg po daily x 8 weeks -Okay to use Imodium or Lomotil up to 8 tablets daily prn diarrhea -Patient should plan for outpatient follow-up in our office
[2021-02-16] MEDS: DIPHENOXYLATE/ATROPINE 2.5/0.025MG TAB PO PRN (09:56)
--- NOTE | 2021-02-16 11:56 | Hospitalist Progress Note ---
Date of Service February 16, 2021 Assessment & Plan (1) Colitis: Plan: Inflammatory as noted on CT Microscopic colitis noted on Biopsy stool culture and stool for C. difficile - NEGATIVE Colonscopy completed: Four 5 to 12 mm polyps in the sigmoid colon, in the transverse colon and in the ascending colon, removed with a hot snare. Resected and retrieved. - Diverticulosis in the entire examined colon. - Non-bleeding internal hemorrhoids. - Several random biopsies were obtained in the entire colon. 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 Plan: Budesonide 9mg daily x 8 weeks, avoid NSAIDs, lactose free diet, use Lomotil up to 8 times a day will follow up with GI in a few weeks still with a lot of diarrhea today, will give LR x 1 liter today check labs in AM try for discharge if feeling better (2) Acute kidney injury superimposed on CKD: Plan: Creatinine 2.90 upon admission, with range 1.61-1.99 resolved give another liter of LR today, making adequate urine check BMP tomorrow (3) Secondary adrenal insufficiency: Plan: Continue baseline hydrocortisone 20 mg p.o. every morning and 10 mg p.o. q. evening. Hold off on stress dosing, BP stable, electrolytes stable (4) Hypertension: Plan: Continue carvedilol 6.25 mg p.o. twice daily with hold parameters (5) Hypothyroidism: Plan: Continue levothyroxine 112 mcg daily (6) Depression: Plan: Continue sertraline 100 mg every morning (7) COPD (chronic obstructive pulmonary disease): Plan: Continue albuterol HFA 2 puffs every 4 hours as needed and ipratropium bromide every 4 hours as needed Continue theophylline in the a.m., if level is normal tonight (8) Diabetes: Plan: Hold sitagliptin. Placed on Accu-Cheks before meals and at bedtime with NovoLog coverage per scale monitor for hypoglycemia, no issues (9) Lung cancer: Admission and Anticipated Discharge Date Admission Date: February 09, 2021 Subjective patient still with diarrhea, mostly liquids, some formed stool having mild abdominal cramps, no nausea/vomiting, able to eat/drink but not enough to account for losses appreciate note from GI - microscopic colitis, see A/P for treatment reviewed chart, reviewed labs Review of Systems Review of Systems: All systems reviewed & are unremarkable except as noted in Subjective Constitutional: + fatigue and + weakness; no fever Gastrointestinal: + abdominal pain and + diarrhea/loose stools; no nausea, no vomiting, no constipation and no blood in stools Physical Exam Constitutional: well developed, well nourished, + ill appearing and + frail appearing; no acute distress Neck: trachea midline, no thyromegaly Respiratory: normal respiratory effort, lungs clear to auscultation Cardiovascular: RRR, no murmur, no edema Gastrointestinal (Abdomen): normal bowel sounds, soft, nontender, no hepatosplenomegaly Musculoskeletal: no cyanosis or clubbing, extremities motor strength 5/5 Skin: no rashes, warm and dry Neurologic: patellar DTR's 2+ bilat, sensation intact and PERRL, EOMI, accommodation nl, no face palsy, no dysarthria Psychiatric: Orientation: alert and oriented x 3 Affect: + flat affect Results & Data Results & Data ([facility]) Vital Signs (Past 12 Hours) Vital Signs Temp Pulse Pulse Resp BP Pulse Ox 02/16/21 08:00 36.4 C L 84 18 148/75 H 95 02/16/21 07:09 68 02/16/21 04:10 36.7 C 77 18 130/62 95 02/16/21 00:00 37.0 C 66 18 148/79 H 96 Laboratory Results Laboratory Results - last 24 hr 02/15/21 02/15/21 02/16/21 16:58 21:08 07:38 POC Glucose 168 H 175 H 97 02/16/21 11:41 POC Glucose 186 H Medications Administered Current Inpatient Medications Albuterol (Albuterol Hfa 8 Gm Inhaler (Combivent Respimat P&T Subs)) 1 puffs INH Q4H PRN PRN Reason: SOB/WHEEZING Stop: 03/12/21 00:14 Budesonide (Budesonide Ec 3 Mg Cap) 9 mg PO QAM [facility] Stop: 03/17/21 16:59 Last Admin: 02/16/21 08:04 Dose: 9 mg Documented by: Carvedilol (Carvedilol 6.25 Mg Tab) 6.25 mg PO BID [facility] Stop: 03/11/21 23:51 Last Admin: 02/16/21 08:04 Dose: 6.25 mg Documented by: Dextrose (Dextrose 50% 50 Ml Syringe) 25 - 50 ml IV UD PRN; Protocol PRN Reason: Hypoglycemia Protocol Stop: 03/12/21 03:39 Diphenoxylate HCl/Atropine (Diphenoxylate/Atropine 2.5/0.025mg Tab) 1 tab PO Q3HWA PRN PRN Reason: diarrhea Stop: 03/15/21 09:25 Last Admin: 02/16/21 09:56 Dose: 1 tab Documented by: Folic Acid (Folic Acid 1 Mg Tab) 1 mg PO QAM [facility] Stop: 03/12/21 08:59 Last Admin: 02/16/21 08:04 Dose: 1 mg Documented by: Glucagon (Glucagon For Inj 1 Mg Vial) 1 mg SQ UD PRN; Protocol PRN Reason: Hypoglycemia Protocol Stop: 03/12/21 03:39 Glucose (Glucose 10 Tabs/Tube) 4 - 8 tabs PO UD PRN; Protocol PRN Reason: Hypoglycemia Protocol Stop: 03/12/21 03:39 Glucose (Glucose 40% Gel 15 Gm Tube) 15 - 30 gm PO UD PRN; Protocol PRN Reason: Hypoglycemia Protocol Stop: 03/12/21 03:39 Heparin Sodium (Porcine) (Heparin Sod 5,000 Unit/0.5 Ml Vial) 5,000 units SQ Q12 [facility] Stop: 03/12/21 08:59 Last Admin: 02/16/21 08:06 Dose: 5,000 units Documented by: Hydrocortisone (Hydrocortisone 10 Mg Tab) 20 mg PO QAM [facility] Stop: 03/12/21 08:59 Last Admin: 02/16/21 08:05 Dose: 20 mg Documented by: Hydrocortisone (Hydrocortisone 10 Mg Tab) 10 mg PO Q24H [facility] Stop: 03/12/21 13:59 Last Admin: 02/15/21 15:41 Dose: 10 mg Documented by: Lactated Ringer's (Lr) 1,000 mls @ 80 mls/hr IV .[id number] [facility] Stop: 02/17/21 00:29 Insulin Aspart (Insulin Aspart 100 Units/Ml 3 Ml Pen) 0 units SC ACHS [facility] Stop: 03/12/21 05:59 Last Admin: 02/16/21 08:03 Dose: Not Given Documented by: Ipratropium [place] (Ipratropium Hfa Inhaler (Combivent Respimat P&T Subs)) 1 puffs INH Q4H PRN PRN Reason: SOB/WHEEZING Stop: 03/12/21 00:14 Levothyroxine Sodium (Levothyroxine Sodium 112 Mcg Tablet) 112 mcg PO DAILYBB [facility] Stop: 03/12/21 06:29 Last Admin: 02/16/21 06:19 Dose: 112 mcg Documented by: Lidocaine ([facility]ocaine 5% 1 Patch) [facility] [place] [facility] [place]: 03/17/21 16:59 Last Admin: 02/16/21 08:06 Dose: 1 patch Documented by: Miscellaneous (Carbohydrates For Hypoglycemia ) 15 - 30 gm PO UD PRN PRN Reason: Hypoglycemia Protocol Stop: 03/12/21 03:39 Miscellaneous (Remove Lidoderm Patch) 1 ea N/A DAILY@2100 [facility] Stop: 03/17/21 20:59 Last Admin: 02/15/21 21:30 Dose: 1 ea Documented by: Ondansetron HCl (Ondansetron Inj 2 Mg/Ml 2 Ml Vial) 4 mg IV Q6H PRN PRN Reason: Nausea Stop: 03/11/21 23:51 Pantoprazole Sodium (Pantoprazole 40 Mg Tab) 40 mg PO HS [facility] Stop: 03/12/21 20:59 Last Admin: 02/15/21 21:20 Dose: 40 mg Documented by: Psyllium Hydrophilic Mucilloid (Psyllium 58.6% Powder Packet) [facility] [place]: 03/16/21 14:29 Last Admin: 02/16/21 08:05 Dose: 1 pkt Documented by: Sertraline HCl (Sertraline Hcl 100 Mg Tablet) 100 mg PO [facility] Stop: 03/12/21 08:59 Last Admin: 02/16/21 08:05 Dose: 100 mg Documented by: Theophylline (Theophylline 300mg Extended Rel Tab) 300 mg PO BID [facility] Stop: 03/12/21 08:59 Last Admin: 02/16/21 08:06 Dose: 300 mg Documented by: PG Care Time/CCT Total # of Minutes Spent Total Time Spent with Patient: Total time spent is greater than 50% in coordination of care (as documented) at patient's floor/unit and/or counseling patient: Coding Level of Care Code 13308 Subseq Hosp Care Lvl 2 Diagnoses Colitis K52.9 Acute kidney injury superimposed on CKD N17.9; N18.9 Secondary adrenal insufficiency E27.49 Hypertension I10 Hypothyroidism E03.9 Depression F32.9 COPD (chronic obstructive pulmonary disease) J44.9 COPD type: unspecified COPD Diabetes E11.9 Lung cancer C34.90 Laterality: unspecified laterality Lung location: unspecified part of lung (1) Lung cancer Laterality: unspecified laterality Lung location: unspecified part of lung Qualified Code(s): C34.90 - Malignant neoplasm of unspecified part of unspecified bronchus or lung (2) COPD (chronic obstructive pulmonary disease) COPD type: unspecified COPD Qualified Code(s): J44.9 - Chronic obstructive pulmonary disease, unspecified
[2021-02-16] MEDS ORDERED: LACTATED RINGER'S 1,000 ML IV SCH (12:00)
[2021-02-16] MEDS: PANTOprazole 40 MG TAB PO SCH (20:07)
[2021-02-17] MEDS: LEVOTHYROXINE SODIUM 112 MCG TABLET PO SCH (06:05)
[2021-02-17] MEDS: PSYLLIUM 58.6% POWDER PACKET PO SCH (08:31)
[2021-02-17] MEDS: INSULIN ASPART 100 UNITS/ML 3 ML PEN SC SCH ×2 (08:32→12:29)
[2021-02-17] MEDS: LIDOCAINE 5% 1 PATCH TD SCH (08:34)
[2021-02-17] MEDS: BUDESONIDE EC 3 MG CAP PO SCH (08:35)
[2021-02-17] MEDS: THEOPHYLLINE 300MG EXTENDED REL TAB PO SCH (08:35)
[2021-02-17] MEDS: HYDROCORTISONE 10 MG TAB PO SCH ×2 (08:35→12:29)
[2021-02-17] MEDS: carvediloL 6.25 MG TAB PO SCH (08:35)
[2021-02-17] MEDS: SERTRALINE HCL 100 MG TABLET PO SCH (08:36)
[2021-02-17] MEDS: FOLIC ACID 1 MG TAB PO SCH (08:36)
[2021-02-17] MEDS: HEPARIN SOD 5,000 UNIT/0.5 ML VIAL SQ SCH (08:38)
[2021-02-17 08:45] LABS: BUN Creatinine Ratio 7.8 (10-20); Calcium 8.2 mg/dl (8.5-10.1); Creatinine Clr Calc Pharmacy 38.1 ml/min; Est GFR (African American) 39.8 ml/min; Est GFR (Non-African American) 34.3 ml/min; Magnesium 1.6 mg/dl (1.8-2.4); Potassium 2.8 mmol/L (3.5-5.1)
[2021-02-17] MEDS ORDERED: POTASSIUM CHLORIDE CRTAB 20 MEQ TABCR PO SCH (09:00)
--- NOTE | 2021-02-17 09:06 | Discharge Summary ---
Date of Service February 17, 2021 Admission HPI Per Admitting Provider The patient is a 75-year-old female with a past medical history including syncope and collapse, secondary to renal insufficiency, ACTH deficiency, adrenal adenoma, hypothyroidism, pancytopenia, CKD stage III, hypertension, depression, COPD, diabetes mellitus, arthritis and lung cancer. She presents with symptoms of several days of lower abdominal pain and diarrhea. Of note, she was admitted from 01/16-01/17 for acute kidney injury, which resolved with IV fluid rehydration. Work-up in the emergency department included a CT scan of the abdomen pelvis which showed generalized infectious or inflammatory colitis. Significant laboratories: Creatinine 2.90, with baseline 1.61-1.99. Potassium 3.2 and negative COVID-19 test. 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 Discharge Exam Constitutional well developed, well nourished, + well hydrated and comfortable; no acute distress Neck trachea midline, no thyromegaly Respiratory normal respiratory effort, lungs clear to auscultation Cardiovascular RRR, no murmur, no edema Gastrointestinal (Abdomen) normal bowel sounds, soft, nontender, no hepatosplenomegaly Musculoskeletal no cyanosis or clubbing, extremities motor strength 5/5 Skin no rashes, warm and dry Neurologic patellar DTR's 2+ bilat, sensation intact and PERRL, EOMI, accommodation nl, no face palsy, no dysarthria Psychiatric Orientation: alert and oriented x 3 Affect: + flat affect Discharge Data Allergies Allergy/AdvReac Type Severity Reaction Status Date / Time adhesive Allergy Unknown PULLS SKIN Verified 02/21/21 20:33 OFF Penicillins Allergy Unknown TONGUE Verified 02/21/21 20:33 SWELLING azithromycin AdvReac Unknown Nausea Verified 02/21/21 20:33 Consultations 02/09/21 20:44 ED Decision to Admit Stat 02/10/21 08:44 Consult Gastroenterology Routine Procedures Performed Operation Date: 02/11/21 17:00 <No data on this case meets the specified criteria> Operation Date: 02/12/21 16:00 Actual Procedures p Colonoscopy Polypectomy - William G. Case, DO s Colonoscopy Biopsy Cytology - William G. Case, DO Ordered Studies 02/09/21 19:14 CT abd pelvis wo con Stat Hospital Course (1) Colitis: Inflammatory as noted on CT Microscopic colitis noted on Biopsy stool culture and stool for C. difficile - NEGATIVE Colonscopy completed: Four 5 to 12 mm polyps in the sigmoid colon, in the transverse colon and in the ascending colon, removed with a hot snare. Resected and retrieved. - Diverticulosis in the entire examined colon. - Non-bleeding internal hemorrhoids. - Several random biopsies were obtained in the entire colon. 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 Plan: Budesonide 9mg daily x 8 weeks, avoid NSAIDs, lactose free diet, use Lomotil up to 8 times a day will follow up with GI in a few weeks less diarrhea, eating and drinking well, able to keep up with any GI losses she feels well enough to go home today (2) Acute kidney injury superimposed on CKD: Creatinine 2.90 upon admission, with range 1.61-1.99 resolved gave another liter of LR on 02/16, making adequate urine Cr is at baseline, electrolytes stable (3) Secondary adrenal insufficiency: Continue baseline hydrocortisone 20 mg p.o. every morning and 10 mg p.o. q. evening. Hold off on stress dosing, BP stable, electrolytes stable (4) Hypertension: Continue carvedilol 6.25 mg p.o. twice daily with hold parameters (5) Hypothyroidism: Continue levothyroxine 112 mcg daily (6) Depression: Continue sertraline 100 mg every morning (7) COPD (chronic obstructive pulmonary disease): Continue albuterol HFA 2 puffs every 4 hours as needed and ipratropium bromide every 4 hours as needed Continue theophylline in the a.m., if level is normal tonight (8) Diabetes: Hold sitagliptin. Placed on Accu-Cheks before meals and at bedtime with NovoLog coverage per scale monitor for hypoglycemia, no issues (9) Lung cancer: Total Time Total Time Spent Total Time Spent (In Minutes): 32 Total Time Includes: Examination of the Patient, Discharge Planning, Medication Reconciliation and Communication With Other Providers (gastroenterology) Discharge Plan Discharge Items Patient Disposition: Home - Self-Care Reason For Visit: CHRISTIAN ON CKD, COLITIS Discharge Diagnosis: Microscopic colitis Acute kidney injury, resolved Dehydration Condition on Discharge: Good Goals: treat microscopic colitis, follow up with GI stay well hydrated Activity: Resume your previous activity Driving/Machine Use: No limitations Weightbearing: Full weightbearing Non-emergency contact: Primary Care Provider Call non-emergency contact if: you have any medication questions and your symptoms worsen Follow-up/Referrals: Harini Waters PA-C [Physician Phone Counselor] - (follow up in 2-4 weeks, microscopic colitis) Arthur Cruz [Primary Care Provider] - (Please call your primary care provider to set up a follow-up discharge appointment within 7-10 days.) Diet: Carb Consistent or DM2 and Lactose Intolerant Addtl Attending Provider Instructions: Medications: - BUDESONIDE: 9mg daily for 8 weeks, gave you 4 weeks with a refill, this is to treat colitis - LOMOTIL: take 1 tablet as needed for diarrhea, can take as often as 3 hours, maximum 8 tablets in 24 hours, don't take if stools are solid - POTASSIUM: take 20mEq twice a day for a week Microscopic colitis on biopsy recommendations from gastroenterology -Lactose-free diet -Avoid NSAIDs -Budesonide 9 mg po daily x 8 weeks -Okay to use Imodium or Lomotil up to 8 tablets daily prn diarrhea -Patient should plan for outpatient follow-up in our office (2-4 weeks with Harini VELASQUEZ) stay well hydrated and well nourished, try to replace any fluids that you lose with diarrhea but your frequency and volume of diarrhea should steadily improve Pending Studies at Discharge: No Stand-Alone Forms: My [facility] Graine de [place], Smoking Cessation Medications and DC Order Prescriptions: New diphenoxylate-atropine 2.5-0.025 mg Tablet 1 tab PO Q3HWA PRN (Reason: diarrhea) 10 Days Qty: 90 RF: 0 potassium chloride [Klor-Con M20] 20 mEq Tablet,Er Particles/Crystals 20 meq PO BID 7 Days Qty: 14 RF: 0 budesonide 3 mg Capsule,Delayed,Extend.Release 9 mg PO QAM 28 Days Qty: 84 RF: 1 Continued carvedilol 6.25 mg tablet 6.25 mg PO BID RF: 0 sertraline 100 mg tablet 100 mg PO QAM RF: 0 theophylline 300 mg tablet extended release 12 hr 300 mg PO BID RF: 0 folic acid 1 mg tablet 1 mg PO QAM RF: 0 sitagliptin 50 mg tablet 50 mg PO QAM RF: 0 Combivent Respimat 20-100 mcg/actuation Mist 1 puff INHALATION Q4H PRN (Reason: Shortness Of Breath Or Wheezing) RF: 0 hydrocortisone 10 mg tablet 10 mg PO UD Qty: 90 RF: 5 furosemide 20 mg tablet 20 mg PO DAILY PRN (Reason: Swelling) RF: 0 esomeprazole magnesium 20 mg capsule,delayed release(DR/EC) 20 mg PO HS RF: 0 ondansetron HCl [Zofran] 4 mg tablet 4 mg PO Q6H PRN (Reason: nausea and vomiting) Qty: 6 RF: 0 levothyroxine 112 mcg tablet 112 mcg PO DAILY RF: 0 albuterol sulfate 2.5 mg /3 mL (0.083 %) solution for nebulization 2.5 mg continuous nebulization Q4 PRN (Reason: cough,sob) RF: 0 icosapent ethyl [Vascepa] 1 gram capsule 2 g PO BIDM RF: 0 No Action Metamucil (with sugar) 3.4 gram powder in packet 1 pkg PO QAM PRN (Reason: ..) RF: 0 Discharge Orders: Discharge Order (Routine); Ordered 02/17/21 Ordered By: Morgan Ackerman Admission Data Admit Date/Time: 02/09/21 21:28 Attending Provider: Morgan Ackerman Admit Provider: Tramaine Connor Primary Care Provider: Arthur Cruz Other Providers: Tramaine Connor ; William Kay Other Interventions: Discharge Summary Assessment (RN) Last Done: 02/17/21 10:20 Coding Level of Care Code D/C DAY MANAGEMENT >30 MINS Diagnoses Colitis K52.9 Acute kidney injury superimposed on CKD N17.9; N18.9 Secondary adrenal insufficiency E27.49 Hypertension I10 Hypothyroidism E03.9 Depression F32.9 COPD (chronic obstructive pulmonary disease) J44.9 COPD type: unspecified COPD Diabetes E11.9 Lung cancer C34.90 Laterality: unspecified laterality Lung location: unspecified part of lung
[2021-02-17] MEDS ORDERED: POTASSIUM CHLORIDE / WTR 10 MEQ/100 ML PLCT IV ONE (09:15)
[2021-02-17] MEDS: MAGNESIUM SULFATE / D5W 1 GM/100 ML BAG IV SCH ×2 (09:41→11:41)
== END 2021-02-17 15:13 | disposition home or self-care (01) | DRG 392 ==
LOC: ED 18:24 → SUATTDRO 21:28 → 2N 21:28

== ENCOUNTER 2021-02-21 16:37 | Observation (INO) ==
[2021-02-21] MEDS ORDERED: SODIUM CHLORIDE 0.9% 500 ML IV STA (16:50)
--- NOTE | 2021-02-21 16:52 | Emergency Department Note ---
History of Present Illness General Chief complaint: Weakness Stated complaint: NAUSEA, WEAKNESS, FOOT PAIN Time Seen by Provider: 02/21/21 16:42 Source: patient History of Present Illness Provider complaint: weakness and bilateral foot pain Onset (ago): day(s) Location: foot, left and right Radiation: other (Ankles bilaterally) Pain Consistency: + constant Maximum Pain Intensity: 8 Quality: + dull Exacerbated By: + movement Associated symptoms: + chest pain, + fever/chills (Low-grade temperatures), + nausea/vomiting, + weakness and + other (Diarrhea); no cough, no shortness of b reath or no syncope This is a 75-year-old female with a recent history of colitis just discharged from the hospital 4 days ago presenting with several complaints. She states that she feels overall weak. She started vomiting about today and has been not eaten or drank since yesterday. She also fell 4 days ago due to weakness and landed on top of both her feet. She has pain to both feet and ankles. She denies any other injury from the fall. She states she did not hit her head. S he has no neck pain. She states that she developed chest pain and shortness of breath at about 1:00 today. She describes it as a pressure on the left side of her chest without radiation. She states it is now gone. She denies any history of cardiac disease but does state it runs in her family. She is a smoker but has not smoked for about a month. She denies any abdominal pain but does have diarrhea which has been going on since her hospitalization recently. She has had low-grade temperatures but no recorded fevers. She denies any cough or cold symptoms. Home Medications Medication Instructions Recorded Confirmed Type carvedilol 6.25 mg tablet 6.25 mg PO BID 07/17/18 02/21/21 History folic acid 1 mg tablet 1 mg PO QAM 07/17/18 02/21/21 History ipratropium 20 mcg-albuterol 100 1 puff INHALATION Q4H PRN 07/17/18 02/21/21 History mcg/actuation mist for inhalation (Combivent Respimat) sertraline 100 mg tablet 100 mg PO QAM 07/17/18 02/21/21 History sitagliptin 50 mg tablet 50 mg PO QAM 07/17/18 02/21/21 History theophylline 300 mg 300 mg PO BID 07/17/18 02/21/21 History tablet,extended release,12 hr esomeprazole magnesium 20 mg 20 mg PO HS 06/28/20 02/21/21 History capsule,delayed release furosemide 20 mg tablet 20 mg PO DAILY PRN 06/28/20 02/21/21 History ondansetron HCl 4 mg tablet 4 mg PO Q6H PRN #6 tab 06/28/20 02/21/21 Rx (Zofran) hydrocortisone 10 mg tablet 10 mg PO UD #90 tab 07/30/20 02/21/21 Rx albuterol sulfate 2.5 mg CONTINUOUS NEBULIZATION Q4 01/15/21 02/21/21 History PRN icosapent ethyl 1 gram capsule 2 g PO BIDM 01/15/21 02/21/21 History (Vascepa) levothyroxine 112 mcg tablet 112 mcg PO DAILY 02/09/21 02/21/21 History budesonide 3 mg 9 mg PO QAM 28 Days #84 ea 02/17/21 02/21/21 Rx capsule,delayed,extended release diphenoxylate-atropine 2.5 1 tab PO Q3HWA PRN 10 Days #90 tab 02/17/21 02/21/21 Rx mg-0.025 mg tablet potassium chloride 20 mEq 20 meq PO BID 7 Days #14 tab 02/17/21 02/21/21 Rx tablet,extended release(part/cryst) (Klor-Con M) psyllium husk (with sugar) 3.4 1 pkg PO QAM PRN 02/21/21 02/21/21 History gram oral powder packet (Metamucil (with sugar)) Allergies Allergy/AdvReac Type Severity Reaction Status Date / Time adhesive Allergy Unknown PULLS SKIN Verified 02/21/21 20:33 OFF Penicillins Allergy Unknown TONGUE Verified 02/21/21 20:33 SWELLING azithromycin AdvReac Unknown Nausea Verified 02/21/21 20:33 Past Med/Surg History Medical History (Updated 02/21/21 @ 21:32 by Marco Murphy) Abdominal pain ACTH deficiency Acute kidney injury superimposed on chronic kidney disease Adrenal adenoma Arthritis Chronic renal failure, stage 3 (moderate) COPD (chronic obstructive pulmonary disease) COVID-19 05/2020 Depression Diabetes Hypoxia Lung cancer 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 Neutropenic fever Orthostatic hypotension Right knee DJD Secondary adrenal insufficiency Surgical History Hx of right knee surgery Family History (Updated 02/21/21 @ 19:13 by Marco Murphy) Mother Heart disease Father , in his 90s - old age COPD (chronic obstructive pulmonary disease) Other Diabetes Hypertension Lung disease Social History (Updated 02/21/21 @ 19:14 by Marco Murphy) Smoking Status: Former smoker Tobacco Type: Cigarettes Age Started Using Tobacco: 19; Age Quit Using Tobacco: 75; packs per day: 0.5; Second Hand Exposure: No; Hx Alcohol Use: No Hx Substance Use: No Preferred Language: Danish Communication Ability: Effective Toll Gate Tender Required: No Beliefs That Will Affect Care: None marital status: / Current Living Situation: Family Current Living Situation Comment: grand daughter stays with PT current occupational status: retired How many Children do You have: 4 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 and A total of 10 systems reviewed and were otherwise negative Physical Exam Vital Signs Vital Signs - 24 hr 02/21/21 16:37 02/21/21 16:39 02/21/21 16:56 Temperature 37.5 C Temperature Source Oral Pulse Rate 89 92 H 90 Pulse Rate from SpO2 Sensor 91 H Pulse Rhythm Regular Pulse Strength Normal Respiratory Rate 17 20 20 Respiratory Depth Normal Blood Pressure 99/59 L 99/59 L Blood Pressure Mean 72 72 Blood Pressure Position Lying Pulse Oximetry 97 95 97 Oxygen Delivery Method Room Air Room Air Room Air Sepsis Recent Fever Within 48 Hours No Sepsis New/Unexplained Change in Mental Status No Sepsis Action Taken by Nursing No Action Required Oxygen Flow Rate - Titration Pulse Oximetry Post Tiitration 02/21/21 17:12 02/21/21 17:35 02/21/21 18:00 Temperature Temperature Source Pulse Rate 86 82 Pulse Rate from SpO2 Sensor 82 Pulse Rhythm Pulse Strength Respiratory Rate 18 22 Respiratory Depth Blood Pressure 121/63 102/62 Blood Pressure Mean 82 75 Blood Pressure Position Pulse Oximetry 96 98 94 Oxygen Delivery Method Room Air Room Air Room Air Sepsis Recent Fever Within 48 Hours Sepsis New/Unexplained Change in Mental Status Sepsis Action Taken by Nursing Oxygen Flow Rate - Titration 1 Pulse Oximetry Post Tiitration 97 02/21/21 18:30 02/21/21 19:00 02/21/21 19:32 Temperature Temperature Source Pulse Rate 80 83 85 Pulse Rate from SpO2 Sensor 80 83 Pulse Rhythm Pulse Strength Respiratory Rate 22 17 16 Respiratory Depth Blood Pressure 128/61 106/77 119/70 Blood Pressure Mean 83 86 86 Blood Pressure Position Pulse Oximetry 90 94 92 Oxygen Delivery Method Room Air Room Air Room Air Sepsis Recent Fever Within 48 Hours Sepsis New/Unexplained Change in Mental Status Sepsis Action Taken by Nursing Oxygen Flow Rate - Titration Pulse Oximetry Post Tiitration 02/21/21 19:40 Temperature Temperature Source Pulse Rate 85 Pulse Rate from SpO2 Sensor 85 Pulse Rhythm Pulse Strength Respiratory Rate 23 Respiratory Depth Blood Pressure Blood Pressure Mean Blood Pressure Position Pulse Oximetry 93 Oxygen Delivery Method Sepsis Recent Fever Within 48 Hours Sepsis New/Unexplained Change in Mental Status Sepsis Action Taken by Nursing Oxygen Flow Rate - Titration Pulse Oximetry Post Tiitration Constitutional: Vital signs reviewed. Eyes: Pupils are equal round reactive to light. Conjunctiva are noninjected. ENT: Pharynx is clear without erythema or exudate. Mucous membranes are dry. Neck supple without meningeal signs. Respiratory: Clear to auscultation bilaterally. Breath sounds are equal bilaterally. Cardiovascular: Regular rate and rhythm. No rubs or gallops. GI: Soft, nondistended and nontender. Bowel sounds are present. Musculoskeletal: No peripheral edema. Bilateral foot tenderness over the dorsum of the feet with normal distal pulses. Erythema over the feet as well. No significant ankle tenderness. No hip tenderness bilaterally. Integumentary: No cyanosis. or jaundice. Neurological: The patient is awake and alert. No focal deficits. Psychiatric: Anxious. Course Administered Medications Discontinued Medications Albuterol (Albut/Ipratrop 3mg/0.5mg Neb 3 Ml Vial) 3 ml NEB NOW STA Stop: 02/21/21 19:41 Last Admin: 02/21/21 20:30 Dose: 3 ml Documented by: [id number] Hydrocortisone Sodium Succinate (Hydrocortisone Sod Succinate 100 Mg/2 Ml Vial) 100 mg IV NOW STA Stop: 02/21/21 17:05 Last Admin: 02/21/21 17:09 Dose: 100 mg Documented by: [id number] Sodium Chloride (Nss) 500 mls @ 999 mls/hr IV .Q31M STA Stop: 02/21/21 17:20 Last Infusion: 02/21/21 17:49 Dose: 0 mls/hr Documented by: [id number] Admin: 02/21/21 17:06 Dose: 999 mls/hr Documented by: [id number] Sodium Chloride (Nss) 500 mls @ 100 mls/hr IV .Q5H SIMONA Stop: 03/23/21 17:59 Last Infusion: 02/21/21 21:55 Dose: 0 mls/hr Documented by: [id number] Admin: 02/21/21 18:16 Dose: 100 mls/hr Documented by: [id number] Potassium Chloride (K Fuentes / Wtr) 10 meq in 100 mls @ 100 mls/hr IV ONE ONE Stop: 02/21/21 18:59 Last Infusion: 02/21/21 19:17 Dose: 0 mls/hr Documented by: [id number] Admin: 02/21/21 18:15 Dose: 100 mls/hr Documented by: [id number] Magnesium Sulfate/Dextrose (Magnesium Sulfate / D5w) 1 gm in 100 mls @ 100 mls/hr IV Q1H SIMONA Stop: 02/21/21 21:44 Last Infusion: 02/21/21 21:03 Dose: 0 mls/hr Documented by: [id number] Admin: 02/21/21 19:58 Dose: 100 mls/hr Documented by: [id number] Sodium Chloride (Nss 1000ml) 1,000 mls @ 999 mls/hr IV .Q1H1M ONE Stop: 02/21/21 21:31 Last Infusion: 02/21/21 21:55 Dose: 0 mls/hr Documented by: [id number] Admin: 02/21/21 20:38 Dose: 999 mls/hr Documented by: [id number] Morphine Sulfate (Morphine Sulfate 2 Mg/Ml Carp) 2 mg IV NOW STA Stop: 02/21/21 19:41 Last Admin: 02/21/21 20:03 Dose: 2 mg Documented by: [id number] Ondansetron HCl (Ondansetron Inj 2 Mg/Ml 2 Ml Vial) 4 mg IV NOW STA Stop: 02/21/21 16:54 Last Admin: 02/21/21 17:08 Dose: 4 mg Documented by: [id number] Medical Decision Making Differential Diagnosis Foot or ankle fracture, dehydration, CHRISTIAN, unstable angina, ME, pneumonia, UTI, adrenal crisis Medical Records Attestation: I reviewed the patient's medical records. I did perform a limited focused review of portions of the patient's old chart on the electronic medical record. The patient was admitted February 09 and just dis charged from the hospital on February 17. She had a lymphocytic and microscopic colitis. She was treated with budesonide. She also has a history of adrenal insufficiency and she was told to continue her hydrocortisone. She had been admitted January 15 for syncope. Home Medications Current Medication List: was personally reviewed by me Laboratory Data Attestation: I reviewed the patient's lab results. Result diagrams: 02/21/21 17:07 02/21/21 17:07 Lab Results 02/21/21 02/21/21 02/21/21 Range/Units 17: 17:07 17:07 WBC 8.40 (4.8-10.8) K/uL RBC 4.17 L (4.2-5.4) M/uL Hgb 12.2 (12.0-16.0) g/dL Hct 35.4 L (37-47) % MCV 84.9 (80-100) fL MCH 29.3 (25-34) pg MCHC 34.5 (32-36) g/dL RDW Std Deviation 50.8 H (36.4-46.3) fL RDW Coeff of Maye 16.1 H (11.5-14.5) % Plt Count 215 (130-400) K/uL MPV 10.7 H (7.4-10.4) fL Immature Gran % (Auto) 0.4 % Neut % (Auto) 60.4 % Lymph % (Auto) 19.8 % [place]oun % (Auto) 11.4 % Eos % (Auto) 7.9 % Baso % (Auto) 0.1 % Neut # (Auto) 5.08 (1.4-6.5) K/uL Lymph # (Auto) 1.66 (1.2-3.4) K/uL [place]oun # (Auto) 0.96 H (0.11-0.59) K/uL Eos # (Auto) 0.66 H (0-0.5) K/uL Baso # (Auto) 0.01 (0-0.2) K/uL Immature Gran # (Auto) 0.03 H (0.00-0.02) K/uL Absolute Nucleated RBC 0.02 H (0-0) K/uL Nucleated RBC % (auto) 0.2 % ESR (0-30) mm/hr Sodium 135 L (136-145) mmol/L Potassium 3.1 L (3.5-5.1) mmol/L Chloride 106 (98-107) mmol/L Carbon Dioxide 20 L (21-32) mmol/L Anion Gap 9.0 (3-11) BUN 15 (7-18) mg/dl Creatinine 1.85 H (0.6-1.2) mg/dl Est Cr Clr Drug Dosing 30.0 ml/min Est GFR ( Amer) 30.1 ml/min Est GFR (Non-Af Amer) 26.0 ml/min BUN/Creatinine Ratio 8.0 L (10-20) Glucose 146 H (70-99) mg/dl Lactate 0.7 (0.4-2.0) mmol/L Uric Acid 10.9 H (2.6-7.2) mg/dl Calcium 8.5 (8.5-10.1) mg/dl Magnesium 1.2 L (1.8-2.4) mg/dl Total Bilirubin 1.1 H (0.2-1) mg/dl AST 16 (15-37) U/L ALT 15 (12-78) U/L Alkaline Phosphatase 70 (45-117) U/L Troponin I < 0.015 (0-0.045) ng/ml C-Reactive Protein 14.40 H (0-0.29) mg/dl Total Protein 6.4 (6.4-8.2) gm/dl Albumin 2.8 L (3.4-5.0) gm/dl Globulin 3.6 (2.5-4.0) gm/dl Albumin/Globulin Ratio 0.8 L (0.9-2) Lipase 63 L (73-393) U/L 02/21/ Range/Units 17:07 WBC (4.8-10.8) K/uL RBC (4.2-5.4) M/uL Hgb (12.0-16.0) g/dL Hct (37-47) % MCV (80-100) fL MCH (25-34) pg MCHC (32-36) g/dL RDW Std Deviation (36.4-46.3) fL RDW Coeff of Maye (11.5-14.5) % Plt Count (130-400) K/uL MPV (7.4-10.4) fL Immature Gran % (Auto) % Neut % (Auto) % Lymph % (Auto) % Calhoun % (Auto) % Eos % (Auto) % Baso % (Auto) % Neut # (Auto) (1.4-6.5) K/uL Lymph # (Auto) (1.2-3.4) K/uL [place] # (Auto) (0.11-0.59) K/uL Eos # (Auto) (0-0.5) K/uL Baso # (Auto) (0-0.2) K/uL Immature Gran # (Auto) (0.00-0.02) K/uL Absolute Nucleated RBC (0-0) K/uL Nucleated RBC % (auto) % ESR 51 H (0-30) mm/hr Sodium (136-145) mmol/L Potassium (3.5-5.1) mmol/L Chloride (98-107) mmol/L Carbon Dioxide (21-32) mmol/L Anion Gap (3-11) BUN (7-18) mg/dl Creatinine (0.6-1.2) mg/dl Est Cr Clr Drug Dosing ml/min Est GFR ( Amer) ml/min Est GFR (Non-Af Amer) ml/min BUN/Creatinine Ratio (10-20) Glucose (70-99) mg/dl Lactate (0.4-2.0) mmol/L Uric Acid (2.6-7.2) mg/dl Calcium (8.5-10.1) mg/dl Magnesium (1.8-2.4) mg/dl Total Bilirubin (0.2-1) mg/dl AST (15-37) U/L ALT (12-78) U/L Alkaline Phosphatase (45-117) U/L Troponin I (0-0.045) ng/ml C-Reactive Protein (0-0.29) mg/dl Total Protein (6.4-8.2) gm/dl Albumin (3.4-5.0) gm/dl Globulin (2.5-4.0) gm/dl Albumin/Globulin Ratio (0.9-2) Lipase (73-393) U/L Imaging Data Attestation: I personally reviewed and interpreted this imaging study as follows: Radiologist's Impression: Ankle X-Ray 02/21/21 16:50 XR ankle RT min 3V routine CLINICAL HISTORY: fall eval for fx COMPARISON: None. DISCUSSION: No acute fracture or dislocation. Ankle mortise is preserved. Evaluation is limited due to osteopenia. Soft tissue edema and vascular calcifications are seen. IMPRESSION: No definite acute fracture dislocation. ACT 112: Negative or not required by law. The above report was generated using voice recognition software. It may contain grammatical, syntax or spelling errors. Electronically signed by: Judy Jenkins DO 02/21/2021 5:53 PM Ankle X-Ray 02/21/21 16:50 XR ankle LT min 3V routine CLINICAL HISTORY: fall eval for fx COMPARISON: None DISCUSSION: No definite acute fracture or dislocation seen. Ankle mortise is preserved. No blastic or lytic lesions are seen. Evaluation is limited due to mild diffuse osteopenia. There is no evidence for soft tissue swelling. IMPRESSION: No acute fracture dislocation. ACT 112: Negative or not required by law. The above report was generated using voice recognition software. It may contain grammatical, syntax or spelling errors. Electronically signed by: Judy Jenkins DO 02/21/2021 6:06 PM Chest X-Ray 02/21/21 16:50 XR chest 1V portable CLINICAL HISTORY: Chest Pain COMPARISON STUDY: January 15, 2021 FINDINGS: No pneumothorax. No pleural effusion. Minimal atelectasis is seen at the left base. Mild diffuse prominence of pulmona ry interstitium could be chronic. Cardiomediastinal silhouette is prominent and unchanged since prior. Aorta is calcified. No significant pulmonary vascular congestion.. Osseous structures: Osteopenia. Vertebral bodies are not well seen. IMPRESSION: 1. Minimal atelectasis at the left base. 2. Prominent cardiac silhouette. ACT 112: Negative or not required by law. The above report was generated using voice recognition software. It may contain grammatical, syntax or spelling errors. Electronically signed by: Judy Jenkins DO 02/21/2021 6:05 PM Foot X-Ray 02/21/21 16:50 XR foot LT min 3V routine CLINICAL HISTORY: fall eval for fx COMPARISON: None. DISCUSSION: No definite acute fracture dislocation seen. Evaluation is limited due to diffuse osteopenia. Sclerotic lesion is seen within first distal phalanx and show well-defined zone of transition. Mild soft tissue edema is seen. IMPRESSION: No acute fracture dislocation. Questionable sclerotic lesion within first distal phalanx which most likely benign. Please correlate above-mentioned findings with prior history. ACT 112: Negative or not required by law. The above report was generated using voice recognition software. It may contain grammatical, syntax or spelling errors. Electronically signed by: Judy Jenkins DO 02/21/2021 6:09 PM Foot X-Ray 02/21/21 16:50 XR foot RT min 3V routine CLINICAL HISTORY: fall eval for fx COMPARISON: None. DISCUSSION: No definite acute fracture or dislocation seen. Evaluation is limited due to diffuse osteopenia. Mild subluxation within first metatarsophalangeal joint is seen with its mild degenerative changes. Diffuse soft tissue edema is seen. Vascular calcifications are visualized. IMPRESSION: No acute fracture or dislocation. ACT 112: Negative or not required by law. The above report was generated using voice recognition software. It may contain grammatical, syntax or spelling errors. Electronically signed by: Judy Jenkins DO 02/21/2021 5:52 PM ECG Data Attestation: I personally reviewed and interpreted this ECG as follows: Indication: + chest pain Rate (beats per minute): 93 Rhythm: + normal sinus ECG [place]: + Normal ECG ST segments: + Nonspecific ST abnormalities ECG Findings: no PVCs Comparison ECG Date: from (January 15, 2021) Change: no significant change MDM Narrative I did evaluate the patient as noted above. She is presenting with generalized weakness, vomiting, inability to take p.o., foot pain from a fall and chest pain. IV access was established. She is hypotensive with a BP of 99/59. I did treat her with normal saline bolus and Zofran IV. She was also given IV hydrocortisone due to her adrenal insufficiency. I did place an order for continuous cardiac monitoring. The monitor showed normal sinus rhythm at a rate of 98 bpm. I did order and personally review the patient's 12-lead EKG as described above. She has no acute ischemic changes on her twelve-lead EKG. I did order and personally reviewed the images of the patient's chest, bilateral ankle and foot x-rays as described above. There is no acute infiltrate on chest x-ray. There is no evidence of fracture or dislocation to either ankle or foot. I did order a urine analysis. We are still awaiting a sample. I did order and review the patient's blood work as noted in the electronic medical record. Her white blood cell count is not elevated. Hemoglobin is within normal limits. Electrolytes demonstrate hyponatremia with a sodium of 135 and hypokalemia with a potassium of 3.1. Creatinine is at baseline at 1.85. She was given 1 round of KCl 10 mEq IV. Screening Covid test is negative. I did discuss the test results with the patient. Her blood pressure is improved to 128/61. She still states she feels very weak. She will be hospitalized for further care and evaluation. I did discuss the case with the hospitalist and case filler. Impression & Plan Acute hypotension, Chronic renal failure, stage 3 (moderate), Generalized weakness, Hypokalemia, Acute chest pain, Fall, Injury of foot Discharge Plan Visit Data Chief Complaint: Weakness Stated Complaint: NAUSEA, WEAKNESS, FOOT PAIN ED Provider: Tyron Laura Discharge Problem: Acute hypotension, Chronic renal failure, stage 3 (moderate), Generalized weakness, Hypokalemia, Acute chest pain, Fall, Injury of foot Patient Disposition: Admitted As Inpatient Discharge Instructions Interventions: ED Discharge Assessment Last Done: 02/21/21 21:27 Discharge Problem: Chronic renal failure, stage 3 (moderate) Qualifiers: Chronic kidney disease stage 3 subtype: unspecified whether 3a or 3b Qualified Code(s): N18.30 - Chronic kidney disease, stage 3 unspecified Fall Qualifiers: Encounter type: initial encounter Qualified Code(s): W19.XXXA - Unspecified fal l, initial encounter Injury of foot Qualifiers: Encounter type: initial encounter Laterality: unspecified laterality Qualified Code(s): S99.929A - Unspecified injury of unspecified foot, initial encounter
[2021-02-21] MEDS ORDERED: ONDANSETRON INJ 2 MG/ML 2 ML VIAL IV STA (16:53)
[2021-02-21] MEDS ORDERED: HYDROCORTISONE SOD SUCCINATE 100 MG/2 ML VIAL IV STA (17:04)
[2021-02-21 17:20] LABS: Basophils # (auto) 0.01 K/uL (0-0.2); Basophils % (auto) 0.1 %; Eosinophils # (auto) 0.66 K/uL (0-0.5); Eosinophils % (auto) 7.9 %; Hematocrit (blood only) 35.4 % (37-47); Hemoglobin 12.2 g/dL (12.0-16.0); Immature Granulocytes # (auto) 0.03 K/uL (0.00-0.02); Immature Granulocytes % (auto) 0.4 %; Lymphocytes # (auto) 1.66 K/uL (1.2-3.4); Lymphocytes % (auto) 19.8 %; Mean Corpuscular Hemoglobin 29.3 pg (25-34); Mean Corpuscular Hgb Conc 34.5 g/dL (32-36); Mean Corpuscular Volume 84.9 fL (80-100); Mean Platelet Volume 10.7 fL (7.4-10.4); Monocytes # (auto) 0.96 K/uL (0.11-0.59); Monocytes % (auto) 11.4 %; Neutrophils # (auto) 5.08 K/uL (1.4-6.5); Neutrophils % (auto) 60.4 %; Nucleated RBC # (auto) 0.02 K/uL (0-0); Nucleated RBC % (auto) 0.2 %; Platelet Count 215 K/uL (130-400); RDW Coefficient of Variation 16.1 % (11.5-14.5); RDW Standard Deviation 50.8 fL (36.4-46.3); Red Blood Count 4.17 M/uL (4.2-5.4)
[2021-02-21 17:40] LABS: Alanine Aminotransferase 15 U/L (12-78); Albumin Level 2.8 gm/dl (3.4-5.0); Aspartate Aminotransferase 16 U/L (15-37); Blood Urea Nitrogen 15 mg/dl (7-18); Calcium 8.5 mg/dl (8.5-10.1); Carbon Dioxide 20 mmol/L (21-32); Chloride 106 mmol/L (98-107); Est GFR (African American) 30.1 ml/min; Glucose 146 mg/dl (70-99); Lipase 63 U/L (73-393); Potassium 3.1 mmol/L (3.5-5.1); Sodium 135 mmol/L (136-145)
[2021-02-21 17:45] LABS: Albumin Globulin Ratio 0.8 (0.9-2); Alkaline Phosphatase 70 U/L (45-117); Bilirubin,Total 1.1 mg/dl (0.2-1); Globulin 3.6 gm/dl (2.5-4.0); Total Protein 6.4 gm/dl (6.4-8.2); Troponin I < 0.015 ng/ml (0-0.045)
--- NOTE | 2021-02-21 17:54 | XRay Report ---
XR foot RT min 3V routine CLINICAL HISTORY: fall eval for fx COMPARISON: None. DISCUSSION: No definite acute fracture or dislocation seen. Evaluation is limited due to diffuse oste openia. Mild subluxation within first metatarsophalangeal joint is seen with its mild degenerative ch anges. Diffuse soft tissue edema is seen. Vascular calcifications are visualized. IMPRESSION: No acute fracture or dislocation. ACT 112: Negative or not required by law. The above report was generated using voice recognition software. It may contain grammatical, syntax o r spelling errors. Electronically signed by: Judy Jenkins DO 02/21/2021 5:52 PM
--- NOTE | 2021-02-21 17:55 | XRay Report ---
XR ankle RT min 3V routine CLINICAL HISTORY: fall eval for fx COMPARISON: None. DISCUSSION: No acute fracture or dislocation. Ankle mortise is preserved. Evaluation is limited due to osteopenia. Soft tissue edema and vascular calcifications are seen. IMPRESSION: No definite acute fracture dislocation. ACT 112: Negative or not required by law. The above report was generated using voice recognition software. It may contain grammatical, syntax o r spelling errors. Electronically signed by: Judy Jenkins DO 02/21/2021 5:53 PM
[2021-02-21] MEDS ORDERED: SODIUM CHLORIDE 0.9% 500 ML IV SCH (18:00)
[2021-02-21] MEDS ORDERED: POTASSIUM CHLORIDE / WTR 10 MEQ/100 ML PLCT IV ONE (18:00)
--- NOTE | 2021-02-21 18:06 | XRay Report ---
XR chest 1V portable CLINICAL HISTORY: Chest Pain COMPARISON STUDY: January 15, 2021 FINDINGS: No pneumothorax. No pleural effusion. Minimal atelectasis is seen at the left base. Mild diffuse prominence of pulmonary interstitium could be chronic. Cardiomediastinal silhouette is prominent and unchanged since prior. Aorta is calcified. No significant pulmonary vascular congestion.. Osseous structures: Osteopenia. Vertebral bodies are not well seen. IMPRESSION: 1. Minimal atelectasis at the left base. 2. Prominent cardiac silhouette. ACT 112: Negative or not required by law. The above report was generated using voice recognition software. It may contain grammatical, syntax o r spelling errors. Electronically signed by: Judy Jenkins DO 02/21/2021 6:05 PM
--- NOTE | 2021-02-21 18:07 | XRay Report ---
XR ankle LT min 3V routine CLINICAL HISTORY: fall eval for fx COMPARISON: None DISCUSSION: No definite acute fracture or dislocation seen. Ankle mortise is preserved. No blastic or lytic lesions are seen. Evaluation is limited due to mild diffuse osteopenia. There is no evidence for soft tissue swelling. IMPRESSION: No acute fracture dislocation. ACT 112: Negative or not required by law. The above report was generated using voice recognition software. It may contain grammatical, syntax o r spelling errors. Electronically signed by: Judy Jenkins DO 02/21/2021 6:06 PM
--- NOTE | 2021-02-21 18:10 | XRay Report ---
XR foot LT min 3V routine CLINICAL HISTORY: fall eval for fx COMPARISON: None. DISCUSSION: No definite acute fracture dislocation seen. Evaluation is limited due to diffuse osteopenia. Sclerot ic lesion is seen within first distal phalanx and show well-defined zone of transition. Mild soft tissue edema is seen. IMPRESSION: No acute fracture dislocation. Questionable sclerotic lesion within first distal phalanx which most likely benign. Please correlate above-mentioned findings with prior history. ACT 112: Negative or not required by law. The above report was generated using voice recognition software. It may contain grammatical, syntax o r spelling errors. Electronically signed by: Judy Jenkins DO 02/21/2021 6:09 PM
--- NOTE | 2021-02-21 18:20 | History & Physical Report ---
Date of Service February 21, 2021 Assessment & Plan (1) Acute hypotension: Plan: Likely hypovolemia, addisonian, +/- sepsis. Favor combo of first 2 etiologies. Will give additional fluid bolus now. Agree with the hydrocortisone that was given in ER. Will continue steroids in the form of solumedrol (will treat COPD flare, provide stress dose steroids for ACTH deficiency/adrenal insufficiency, treat suspected gout in b/l feet, and treat microscopic colitis). Following IV bolus will provide NS with KCL for maintenance fluids. (2) Generalized weakness: Plan: Numerous etiologies likely contributing - low K, low mag, dehydration, low BP, ?superimposed infectious process of GI tract, etc. Replace low K and low mag. Stress-dose steroids. IV fluids. (3) Hypokalemia: Plan: Given IV KCL in ER. Then supplement with PO k-dur. Add KCL to maintenance fluids. BMP am. Replace low mag. (4) Acute chest pain: Plan: More of a chest tightness rather than pain. Does not sound ischemic. Not pleuritic to suggest pericarditis or PE. Came on at same time as dyspnea/wheezing. Edxp-rio-vicn will obtain CT chest, noncontrast (CrCL only 30 this evening). Previous imaging showed a pericardial effusion thus this needs f/u. R/o advancing lung ca. R/o pneumonia. Troponin neg tonight. EKG unchanged from January EKG. Place on telemetry. (5) COPD with exacerbation: Plan: Dyspnea, wheezing. Solumedrol. Duoneb x [address] on qid du[address]. CT chest as discussed in #4 above. check theophylline level before continuing this drug. (6) Gout of both feet: Plan: b/l foot x-rays without fracture. b/l foot x-rays also without CPPD changes. Thus, suspect mid-foot gout b/l. Steroids will help. Colchicine x 1 now. Check sed rate, uric acid. (7) Fall: Plan: Occurred upon arrival home from the hospital. Has had severe back pain since. Check CT lumbar spine - r/o compression fracture. r/o mets from her lung cancer. (8) Back pain: Plan: as above in #7. for pain - lidoderm patches; tylenol 1gm TID scheduled; morphine prn. (9) Microscopic colitis: Plan: dx made during the recent hospital stay. random biopsies c/w microscopic colitis. she has not improved as of yet with entocort 9mg daily. will recheck a c diff and stool culture to r/o bacterial causes of diarrhea. solumedrol IV for COPD, suspected gout, etc should help. entocort to be placed on hold. if diarrhea is refractory re-consult GI. 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 follows with Dr Kingston. felt to be due to Keytruda chemotherapy for her lung cancer. keytruda has since then been stopped. typically on hydrocortisone 20mg am, 10mg pm. holding this, and using stress-dose steroids. (11) Hypothyroidism: Plan: nearly all TSHs in the last year have been elevated. compliance issues?? not absorbing the synthroid due to GI tract issues?? simply resume prior synthroid dose. (12) Chronic renal failure, stage 3 (moderate): Plan: Cr baseline about 1.4 to 1.8, most recently during prior stay the Cr was 1.3/1.4. BMP am. (13) Hypertension: Plan: now w/ hypotension. HOLD coreg. HOLD lasix. (14) Depression: Plan: cont zoloft (15) Diabetes: Plan: a1c in December was 7.7%. hold oral agents. place on novolog sliding scale as needed. DM diet. (16) Acute kidney injury superimposed on chronic kidney disease: Plan: mild CHRISTIAN. 2nd to #1. hydrate, bmp in am. (17) Hypomagnesemia: Plan: severe. presumably 2nd to poor oral intake & diarrhea. give 2 grams mag sulfate in ER now, then 1 additional gram on the floor. repeat mag level am. replace low K. (18) DVT prophylaxis: Plan: order heparin 5000 BID Plan: place on telemetry will need PT, OT once able to tolerate History of Present Illness Chief Complaint: weakness, diarrhea Primary Care Provider: Arthur Cruz 75yo female with history of lung cancer followed by Dr Jan Simon, COVID-19 infection 05/2020, ACTH deficiency leading to adrenal insufficiency thought 2nd to Keytruda chemotherapy, and recent hospital stay for severe diarrhea presents from her home in [facility] via EMS due to extreme weakness. She was released to home on Tuesday after a colonoscopy during that stay showed lymphocytic colitis. Taisha afternoon she was walking from the car to the front step that leads to the porch. Her "back gave out" - "like a spasm" - which made her fall to the ground. Tuesday night she had severe pain/swelling in her left mid-foot. She then developed severe pain/swelling in her right mid-foot. Pain is relatively constant but is worse when she walks/bears weight. She continued with diarrhea all day Tuesday and . 5-6 times/day. Liquid, no blood. She continues with mild abdominal upset/pain. She has had worsening back pain. Present in lumbar spine. It was apparently bothering her during the prior hospitalization. Back pain has been present "for a few weeks." On she lost her appetite. Drinking fluids, but not eating. Had nausea and vomiting today. Lastly, she c/o dyspnea. This started last pm. She has the dyspnea at rest and it is much worse with exertion/walking. Minimal cough. She continues to take the hydrocortisone 20mg am and 10mg pm ALONG WITH the budesonide daily for lymphocytic colitis. Allergies Allergy/AdvReac Type Severity Reaction Status Date / Time adhesive Allergy Unknown PULLS SKIN Verified 02/21/21 20:33 OFF Penicillins Allergy Unknown TONGUE Verified 02/21/21 20:33 SWELLING azithromycin AdvReac Unknown Nausea Verified 02/21/21 20:33 Home Medications Medication Instructions Recorded Confirmed Type carvedilol 6.25 mg tablet 6.25 mg PO BID 07/17/18 02/21/21 History folic acid 1 mg tablet 1 mg PO QAM 07/17/18 02/21/21 History ipratropium 20 mcg-albuterol 100 1 puff INHALATION Q4H PRN 07/17/18 02/21/21 History mcg/actuation mist for inhalation (Combivent Respimat) sertraline 100 mg tablet 100 mg PO QAM 07/17/18 02/21/21 History sitagliptin 50 mg tablet 50 mg PO QAM 07/17/18 02/21/21 History theophylline 300 mg 300 mg PO BID 07/17/18 02/21/21 History tablet,extended release,12 hr esomeprazole magnesium 20 mg 20 mg PO HS 06/28/20 02/21/21 History capsule,delayed release furosemide 20 mg tablet 20 mg PO DAILY PRN 06/28/20 02/21/21 History ondansetron HCl 4 mg tablet 4 mg PO Q6H PRN #6 tab 06/28/20 02/21/21 Rx (Zofran) hydrocortisone 10 mg tablet 10 mg PO UD #90 tab 07/30/20 02/21/21 Rx albuterol sulfate 2.5 mg CONTINUOUS NEBULIZATION Q4 01/15/21 02/21/21 History PRN icosapent ethyl 1 gram capsule 2 g PO BIDM 01/15/21 02/21/21 History (Vascepa) levothyroxine 112 mcg tablet 112 mcg PO DAILY 02/09/21 02/21/21 History budesonide 3 mg 9 mg PO QAM 28 Days #84 ea 02/17/21 02/21/21 Rx capsule,delayed,extended release diphenoxylate-atropine 2.5 1 tab PO Q3HWA PRN 10 Days #90 tab 02/17/21 02/21/21 Rx mg-0.025 mg tablet potassium chloride 20 mEq 20 meq PO BID 7 Days #14 tab 02/17/21 02/21/21 Rx tablet,extended release(part/cryst) (Klor-Con M) psyllium husk (with sugar) 3.4 1 pkg PO QAM PRN 02/21/21 02/21/21 History gram oral powder packet (Metamucil (with sugar)) Past Med/Surg History Medical History (Updated 02/21/21 @ 21:32 by Marco Murphy) Abdominal pain ACTH deficiency Acute kidney injury superimposed on chronic kidney disease Adrenal adenoma Arthritis Chronic renal failure, stage 3 (moderate) COPD (chronic obstructive pulmonary disease) COVID-19 05/2020 Depression Diabetes Hypoxia Lung cancer 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 Neutropenic fever Orthostatic hypotension Right knee DJD Secondary adrenal insufficiency Surgical History Hx of right knee surgery Family History (Updated 02/21/21 @ 19:13 by Marco Murphy) Mother Heart disease Father , in his 90s - old age COPD (chronic obstructive pulmonary disease) Other Diabetes Hypertension Lung disease Social History (Updated 02/21/21 @ 19:14 by Marco Murphy) Smoking Status: Former smoker Tobacco Type: Cigarettes Age Started Using Tobacco: 19; Age Quit Using Tobacco: 75; packs per day: 0.5; Second Hand Exposure: No; Hx Alcohol Use: No Hx Substance Use: No Preferred Language: Azeri Communication Ability: Effective [employer] 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 Required: No Beliefs That Will Affect Care: None marital status: / Current Living Situation: Family Current Living Situation Comment: grand daughter stays with PT current occupational status: retired How many Children do You have: 4 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 Feels Safe at Home: Yes Assistive Devices: Glasses Review of Systems Constitutional: + anorexia; no fever, no chills, no body aches, no fatigue and no weakness Eyes: no worsening vision Ear, Nose, Mouth, Throat: no sore throat and no dysphagia Respiratory: + cough, + dyspnea and + dyspnea on exertion Cardiovascular: + edema; no chest pain Gastrointestinal: + abdominal pain, + nausea, + vomiting and + diarrhea/loose stools; no blood in stools Genitourinary: no dysuria Musculoskeletal: + back pain and + joint pain (feet) Integumentary: no rash Neurologic: + numbness (feet - chronic ) Psychiatric: + depression Endocrine: patient has diabetes Hematologic / Lymphatic: no easy bleeding and no easy bruising Physical Exam Constitutional: + acute distress (any movement leads to dyspnea and severe back pain ), + ill appearing and + frail appearing; no altered mental status and + uncomfortable Eyes: PERRL ENMT: Ears: no TM abnormality Nose: no external nose abnormality Mouth: + oral mucosal abnormality (suspected thrush on tongue ) and + dry oral mucous membranes Neck: trachea midline, no thyromegaly Respiratory: + labored breathing, + cough and + tachypneic Auscultation: + wheezes (extensive b/l ); no crackles Cardiovascular: Rate/Rhythm: regular rate and regular rhythm Heart Sounds: normal S1 and normal S2 Vessels: posterior tibial pulses present and dorsalis pedis pulses present; no JVD Extremities: + edema (focal, on dorsum of feet b/l ) Gastrointestinal (Abdomen): normal bowel sounds, soft, nontender, no hepatosplenomegaly Musculoskeletal: Spine: + lumbar spinal tenderness (T12/L1/L2 region with palpation) and + paraspinal tenderness Extremities: strength 5/5 throughout and + clubbing b/l feet - mid-foot synovitis with erythema, swelling, and exquisite tenderness to palpation over both mid-foot Skin: + erythema (dorsum of feet - see above ) and + pallor; no rashes Neurologic: deep tendon reflexes 2+ bilaterally and moves all extremities; no focal motor deficits Psychiatric: Orientation: alert and oriented x 3 Mood: + depressed mood Lymphatic: no cervical lymphadenopathy Results & Data Results & Data ([facility]) Vital Signs (Past 12 Hours) Vital Signs Temp Pulse Resp BP Pulse Ox 02/21/21 18:00 82 22 102/62 94 02/21/21 17:35 86 18 121/63 98 02/21/21 17:12 96 02/21/21 16:56 90 20 97 02/21/21 16:39 37.5 C 92 H 20 99/59 L 95 02/21/21 16:37 89 17 99/59 L 97 Laboratory Results Laboratory Results - last 24 hr 02/21/21 02/21/21 02/21/21 17:07 17:07 17:07 WBC 8.40 RBC 4.17 L Hgb 12.2 Hct 35.4 L MCV 84.9 MCH 29.3 MCHC 34.5 RDW Std Deviation 50.8 H RDW Coeff of Maye 16.1 H Plt Count 215 MPV 10.7 H Immature Gran % (Auto) 0.4 Neut % (Auto) 60.4 Lymph % (Auto) 19.8 [place] % (Auto) 11.4 Eos % (Auto) 7.9 Baso % (Auto) 0.1 Neut # (Auto) 5.08 Lymph # (Auto) 1.66 [place] # (Auto) 0.96 H Eos # (Auto) 0.66 H Baso # (Auto) 0.01 Immature Gran # (Auto) 0.03 H Absolute Nucleated RBC 0.02 H Nucleated RBC % (auto) 0.2 Sodium 135 L Potassium 3.1 L Chloride 106 Carbon Dioxide 20 L Anion Gap 9.0 BUN 15 Creatinine 1.85 H Est Cr Clr Drug Dosing 30.0 Est GFR ( Amer) 30.1 Est GFR (Non-Af Amer) 26.0 BUN/Creatinine Ratio 8.0 L Glucose 146 H Lactate 0.7 Calcium 8.5 Magnesium 1.2 L Total Bilirubin 1.1 H AST 16 ALT 15 Alkaline Phosphatase 70 Troponin I < 0.015 Total Protein 6.4 Albumin 2.8 L Globulin 3.6 Albumin/Globulin Ratio 0.8 L Lipase 63 L COVID-19 Eval Order SARS-CoV-2 (PCR) 02/21/21 02/21/21 Unknown Unknown WBC RBC Hgb Hct MCV MCH MCHC RDW Std Deviation RDW Coeff of Maye Plt Count MPV Immature Gran % (Auto) Neut % (Auto) Lymph % (Auto) [place] % (Auto) Eos % (Auto) Baso % (Auto) Neut # (Auto) Lymph # (Auto) [place] # (Auto) Eos # (Auto) Baso # (Auto) Immature Gran # (Auto) Absolute Nucleated RBC Nucleated RBC % (auto) Sodium Potassium Chloride Carbon Dioxide Anion Gap BUN Creatinine Est Cr Clr Drug Dosing Est GFR ( Amer) Est GFR (Non-Af Amer) BUN/Creatinine Ratio Glucose Lactate Calcium Magnesium Total Bilirubin AST ALT Alkaline Phosphatase Troponin I Total Protein Albumin Globulin Albumin/Globulin Ratio Lipase COVID-19 Eval Order Covid19 at [facility] SARS-CoV-2 (PCR) NEGATIVE Diagnostic Findings Ankle X-Ray 02/21/21 16:50 XR ankle RT min 3V routine CLINICAL HISTORY: fall eval for fx COMPARISON: None. DISCUSSION: No acute fracture or dislocation. Ankle mortise is preserved. Evaluation is limited due to osteopenia. Soft tissue edema and vascular calcifications are seen. IMPRESSION: No definite acute fracture dislocation. ACT 112: Negative or not required by law. The above report was generated using voice recognition software. It may contain grammatical, syntax or spelling errors. Electronically signed by: Judy Jenkins DO 02/21/2021 5:53 PM Ankle X-Ray 02/21/21 16:50 XR ankle LT min 3V routine CLINICAL HISTORY: fall eval for fx COMPARISON: None DISCUSSION: No definite acute fracture or dislocation seen. Ankle mortise is preserved. No blastic or lytic lesions are seen. Evaluation is limited due to mild diffuse osteopenia. There is no evidence for soft tissue swelling. IMPRESSION: No acute fracture dislocation. ACT 112: Negative or not required by law. The above report was generated using voice recognition software. It may contain grammatical, syntax or spelling errors. Electronically signed by: Judy Jenkins DO 02/21/2021 6:06 PM Chest X-Ray 02/21/21 16:50 XR chest 1V portable CLINICAL HISTORY: Chest Pain COMPARISON STUDY: January 15, 2021 FINDINGS: No pneumothorax. No pleural effusion. Minimal atelectasis is seen at the left base. Mild diffuse prominence of pulmonary interstitium could be chronic. Cardiomediastinal silhouette is prominent and unchanged since prior. Aorta is calcified. No significant pulmonary vascular congestion.. Osseous structures: Osteopenia. Vertebral bodies are not well seen. IMPRESSION: 1. Minimal atelectasis at the left base. 2. Prominent cardiac silhouette. ACT 112: Negative or not required by law. The above report was generated using voice recognition software. It may contain grammatical, syntax or spelling errors. Electronically signed by: Judy Jenkins DO 02/21/2021 6:05 PM Foot X-Ray 02/21/21 16:50 XR foot LT min 3V routine CLINICAL HISTORY: fall eval for fx COMPARISON: None. DISCUSSION: No definite acute fracture dislocation seen. Evaluation is limited due to diffuse osteopenia. Sclerotic lesion is seen within first distal phalanx and show well-defined zone of transition. Mild soft tissue edema is seen. IMPRESSION: No acute fracture dislocation. Questionable sclerotic lesion within first distal phalanx which most likely benign. Please correlate above-mentioned findings with prior history. ACT 112: Negative or not required by law. The above report was generated using voice recognition software. It may contain grammatical, syntax or spelling errors. Electronically signed by: Judy Jenkins DO 02/21/2021 6:09 PM Foot X-Ray 02/21/21 16:50 XR foot RT min 3V routine CLINICAL HISTORY: fall eval for fx COMPARISON: None. DISCUSSION: No definite acute fracture or dislocation seen. Evaluation is limited due to diffuse osteopenia. Mild subluxation within first metatarsophalangeal joint is seen with its mild degenerative changes. Diffuse soft tissue edema is seen. Vascular calcifications are visualized. IMPRESSION: No acute fracture or dislocation. ACT 112: Negative or not required by law. The above report was generated using voice recognition software. It may contain grammatical, syntax or spelling errors. Electronically signed by: Judy Jenkins DO 02/21/2021 5:52 PM EKG - my reading - artifact, but NSR; flat ST segments limb leads and anterior leads - similar to 01/15/21 EKG Code Status & VTE Plan Code Status DNR/DNI PG Care Time/CCT Total # of Minutes Spent Total Time Spent with Patient: Total time spent is greater than 50% in coordination of care (as documented) at patient's floor/unit and/or counseling patient: Coding Level of Care Code 71623 Initial Inpt Care Lvl 3 Diagnoses Acute hypotension I95.9 Generalized weakness R53.1 Hypokalemia E87.6 Acute chest pain R07.9 COPD with exacerbation J44.1 Gout of both feet M10.9 Fall W19.XXXA Encounter type: initial encounter Back pain M54.9 Microscopic colitis K52.839 ACTH deficiency E23.6 Hypothyroidism E03.9 Chronic renal failure, stage 3 (moderate) N18.30 Chronic kidney disease stage 3 subtype: unspecified whether 3a or 3b Hypertension I10 Depression F32.9 Diabetes E11.9 Acute kidney injury superimposed on chronic kidney disease N17.9; N18.9 Hypomagnesemia E83.42 DVT prophylaxis Z29.9 (1) Fall Encounter type: initial encounter Qualified Code(s): W19.XXXA - Unspecified fall, initial encounter (2) Chronic renal failure, stage 3 (moderate) Chronic kidney disease stage 3 subtype: unspecified whether 3a or 3b Qualified Code(s): N18.30 - Chronic kidney disease, stage 3 unspecified
[2021-02-21 18:32] LABS: Magnesium 1.2 mg/dl (1.8-2.4)
[2021-02-21] MEDS ORDERED: ALBUT/IPRATROP 3MG/0.5MG NEB 3 ML VIAL NEB STA (19:40)
[2021-02-21] MEDS ORDERED: MoRPHine SULFATE 2 MG/ML CARP IV STA (19:40)
[2021-02-21] MEDS: MAGNESIUM SULFATE / D5W 1 GM/100 ML BAG IV SCH ×2 (19:58→23:42)
[2021-02-21] MEDS ORDERED: SODIUM CHLORIDE 0.9% 1000ML 1,000 ML IV ONE (20:31)
[2021-02-21] MEDS ORDERED: NSS + 20MEQ KCL 20 MEQ/1,000 ML BAG IV SCH (21:52)
[2021-02-21] MEDS ORDERED: ONDANSETRON INJ 2 MG/ML 2 ML VIAL IV PRN (21:52)
[2021-02-21] MEDS ORDERED: MAGNESIUM SULFATE / D5W 1 GM/100 ML BAG IV ONE (21:52)
[2021-02-21] MEDS ORDERED: COLCHICINE 0.6 MG TAB PO ONE (21:52)
[2021-02-21 21:58] LABS: Uric Acid 10.9 mg/dl (2.6-7.2)
[2021-02-21] MEDS: ACETAMINOPHEN 500 MG TAB PO SCH (23:53)
[2021-02-21] MEDS: POTASSIUM CHLORIDE CRTAB 20 MEQ TABCR PO SCH (23:53)
[2021-02-22] MEDS: INSULIN ASPART 100 UNITS/ML 3 ML PEN SC SCH ×5 (00:13→20:46)
[2021-02-22] MEDS: methylPREDNISolone 40 MG in SYRINGE 0 ML IV SCH ×3 (00:38→21:03)
[2021-02-22] MEDS: LEVOTHYROXINE SODIUM 112 MCG TABLET PO SCH (05:37)
--- NOTE | 2021-02-22 07:27 | Electrocardiogram Report ---
Test Reason : Blood Pressure : / mmHG Vent. Rate : 093 BPM Atrial Rate : 093 BPM P-R Int : 136 ms QRS Dur : 086 ms QT Int : 366 ms P-R-T Axes : 000 -07 108 degrees QTc Int : 455 ms Poor data quality, interpretation may be adversely affected Normal sinus rhythm Nonspecific ST and T wave abnormality Abnormal ECG When compared with ECG of 15-JAN-2021 21:42, Inverted T waves have replaced nonspecific T wave abnormality in Lateral leads Confirmed by Willie Freitas ([id number]) on 02/22/2021 7:27:10 AM Referred By: REFERRED SELF Confirmed By:Anthony Freitas
[2021-02-22] MEDS: ALBUT/IPRATROP 3MG/0.5MG NEB 3 ML VIAL NEB SCH ×4 (07:28→19:11)
--- NOTE | 2021-02-22 07:48 | Hospitalist Progress Note ---
Date of Service February 22, 2021 Assessment & Plan (1) Acute hypotension: Plan: Resolved likely hypovolemia, addisonian, feel less likely to be associated with sepsis. hydrocortisone that was given in ER patient continues on solumedrol (will treat COPD flare, provide stress dose steroids for ACTH deficiency/adrenal insufficiency, treat suspected gout in b/l feet, and treat microscopic colitis). (2) Generalized weakness: Plan: Numerous etiologies likely contributing - low K, low mag, dehydration, low BP, ?superimposed infectious process of GI tract, etc. Replace low K and low mag. Stress-dose steroids. IV fluids. (3) Hypokalemia: Plan: Supplement replete and follow (4) Acute chest pain: Plan: Resolved CT chest 02/21 IMPRESSION: 1. Mild atelectasis at dependent portions of bilateral lower lobes. No large infiltrates or consolidative lesions are seen. 2. Stable multiple pulmonary nodules, unchanged since prior study performed on December 03, 2020 as detailed above. 3. Atherosclerosis 4. Stable small pericardial effusion. 5. Compression fracture deformity of T3, stable since prior. 6. Atherosclerosis. no infectious process, to discuss follow up with cardiology with pcp regarding small pericardial effusion Troponin neg EKG unchanged from January EKG. Place on telemetry. (5) COPD with exacerbation: Plan: Dyspnea, wheezing improving . Solumedrol. Duoneb x [address] on qid duonebs. normal theophylline level, will continue (6) Gout of both feet: Plan: b/l foot and ankle x-rays without fracture. b/l foot x-rays also without CPPD changes. Thus, suspect mid-foot gout b/l. Steroids will help. Colchicine x 1 on admit elevated sed rate, crp uric acid. (7) Fall: Plan: Occurred upon arrival home from the hospital. Has had severe back pain since. CT lumbar spine - new L1 compression fracture. r/o mets from her lung cancer. (8) Back pain: Plan: as above in #7. for pain - lidoderm patches; tylenol 1gm TID scheduled; morphine prn. (9) Microscopic colitis: Plan: dx made during the recent hospital stay. random biopsies c/w microscopic colitis. she has not improved as of yet with entocort 9mg daily. will recheck a c diff and stool culture to r/o bacterial causes of diarrhea. solumedrol IV for COPD, suspected gout, etc should help. entocort to be placed on hold. if diarrhea is refractory re-consult GI. 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 follows with Dr Kingston. felt to be due to Keytruda chemotherapy for her lung cancer. keytruda has since then been stopped. typically on hydrocortisone 20mg am, 10mg pm. holding this, and using stress-dose steroids. (11) Hypothyroidism: Plan: nearly all TSHs in the last year have been elevated. compliance issues?? not absorbing the synthroid due to GI tract issues?? simply resume prior synthroid dose. (12) Chronic renal failure, stage 3 (moderate): Plan: Cr baseline about 1.4 to 1.8, most recently during prior stay the Cr was 1.3/1.4. BMP am. (13) Hypertension: Plan: now w/ hypotension. HOLD coreg. HOLD lasix. (14) Depression: Plan: cont zoloft (15) Diabetes: Plan: a1c in December was 7.7%. hold oral agents. place on novolog sliding scale as needed. DM diet. (16) Acute kidney injury superimposed on chronic kidney disease: Plan: mild CHRISTIAN. 2nd to #1. hydrate, bmp in am. (17) Hypomagnesemia: Plan: severe. presumably 2nd to poor oral intake & diarrhea. give 2 grams mag sulfate in ER now, then 1 additional gram on the floor. repeat mag level am. replace low K. (18) DVT prophylaxis: Plan: order heparin 5000 BID Plan: place on telemetry will need PT, OT once able to tolerate Admission and Anticipated Discharge Date Admission Date: February 21, 2021 Subjective This patient believes she is some improvement in her foot pain and back pain. She is found to have an L1 compression fracture which she is using topical and low level pain control this is been appropriate. Patient had hypokalemia on presentation which is repleted and she does have some mild inflammatory state as evidenced by elevation of sed rate and CRP. Review of Systems Review of Systems: Moderate distress and fatigue no headache, no visual changes no speech or swallowing issues no chest pain, pressure or palpitations Initial shortness of breath is improved no abdominal pain, nausea or vomiting, diarrhea or constipation no dysuria, hematuria or frequency Planes of lumbar back pain without radiation and bilateral foot pain and movement She has no CVA tenderness or radicular pain no bruising, bleeding or rashes no focal signs of weakness or numbness or altered sensation no complaints of anxiety or depression.. Physical Exam Physical Exam: The patient appeared well nourished and normally developed. Vital signs as documented. Head exam is normocephalic atraumatic Neck is without JVD, thyromegaly, or carotid bruits. Lungs are clear to auscultation, diminished air movement bilaterally no focal loss of breath sounds Cardiac exam, Rhythm is regular.. No murmurs, rubs or gallops. Abdominal exam reveals normal bowel sounds, soft non tender, no masses Extremities are trace edematous and both feet are exquisitely tender to touch Neurologic exam is alert and oriented, no focal loss of strength or sensation there is no radicular pain associate palpation of back or movement of legs Skin is without bruises or rashes Psychologically is without concerns for anxiety or depression Results & Data Results & Data ([facility]) Vital Signs (Past 12 Hours) Vital Signs Temp Pulse Pulse Pulse Resp BP BP 02/22/21 07:29 60 16 02/22/21 06:50 97.7 F 61 18 113/67 02/22/21 03:33 97.7 F 64 16 98/60 L 02/22/21 00:10 84 02/21/21 22:08 99.1 F 82 111/67 02/21/21 21:00 83 18 121/66 02/21/21 20:52 80 21 97/57 L 02/21/21 20:30 80 80 18 103/55 L 02/21/21 20:20 82 17 99/55 L 02/21/21 20:00 85 19 Pulse Ox 02/22/21 07:29 90 02/22/21 06:50 95 02/22/21 03:33 95 02/22/21 00:10 02/21/21 22:08 95 02/21/21 21:00 95 02/21/21 20:52 93 02/21/21 20:30 94 02/21/21 20:20 92 02/21/21 20:00 96 PG Care Time/CCT Total # of Minutes Spent Total Time Spent with Patient: Total time spent is greater than 50% in coordination of care (as documented) at patient's floor/unit and/or counseling patient: Coding Level of Care Code 37690 Subseq Hosp Care Lvl 3 Diagnoses Acute hypotension I95.9 Generalized weakness R53.1 Hypokalemia E87.6 Acute chest pain R07.9 COPD with exacerbation J44.1 Gout of both feet M10.9 Fall W19.XXXA Encounter type: initial encounter Back pain M54.9 Microscopic colitis K52.839 ACTH deficiency E23.6 Hypothyroidism E03.9 Chronic renal failure, stage 3 (moderate) N18.30 Chronic kidney disease stage 3 subtype: unspecified whether 3a or 3b Hypertension I10 Depression F32.9 Diabetes E11.9 Acute kidney injury superimposed on chronic kidney disease N17.9; N18.9 Hypomagnesemia E83.42 DVT prophylaxis Z29.9 (1) Chronic renal failure, stage 3 (moderate) Chronic kidney disease stage 3 subtype: unspecified whether 3a or 3b Qualified Code(s): N18.30 - Chronic kidney disease, stage 3 unspecified (2) Fall Encounter type: initial encounter Qualified Code(s): W19.XXXA - Unspecified fall, initial encounter
--- NOTE | 2021-02-22 08:10 | CT Scan Report ---
CT lumbar spine wo con CT DOSE: CLINICAL HISTORY: severe upper L-spine pain 2nd to fall TECHNIQUE: Helical images were acquired in transverse plane. Reformatted sagittal and coronal images were reviewed. A dose lowering technique was utilized adhering to the principles of ALARA. CONTRAST: No contrast was administered COMPARISON STUDY: None. Correlation is made with CT of abdomen and pelvis performed on February 09, 2021 FINDINGS: No acute traumatic malalignment. Osseous structures are diffusely demineralized. Normal lumbar lordosis is preserved. There is compression fracture deformity of the L3 with approximately 20% of loss its height which was not seen during prior CT of abdomen and pelvis performed on February 09, 2021. Intervertebral disc spaces are maintained. Multiple anterior osteophytes are seen. Incidental findings of the heavily calcified multifocal ectasia of abdominal aorta is seen measuring up to 2.3 cm in diameter. Incidental findings of the nephrolithiasis on the right and few parapelvic cysts. L1-2 level: There is no evidence of significant disc bulge or focal herniation. There is no evidence of spinal or foraminal stenosis. L2-3 level: Mild diffuse bulge of the disc is seen causing minimal stenosis of the central canal. Dino ateral neuroforamina are patent. L3-4 level: Diffuse bulge of the disc and hypertrophic changes of facet joints are seen causing mild stenosis of the central canal. Bilateral neuroforamina are patent. L4-5 level: Mild diffuse bulge of the disc is seen and in association with hypertrophic changes of fa cet joints causing mild central canal stenosis. Bilateral neuroforamina are patent. L5-S1 level: There is no evidence of significant disc bulge or focal herniation. There is no evidence of spinal or foraminal stenosis. IMPRESSION: 1. No acute fracture or traumatic malalignment. 2. Compression fracture deformity of L3, new since January 2021. 3. Few areas of central canal stenosis as above. 4. Osteopenia. 5. Severe atherosclerosis and ectasia of abdominal aorta. 6. Nephrolithiasis on the right. ACT 112: Negative or not required by law. The above report was generated using voice recognition software. It may contain grammatical, syntax o r spelling errors. Electronically signed by: Judy Jenkins DO 02/22/2021 8:09 AM
[2021-02-22] MEDS: SERTRALINE HCL 100 MG TABLET PO SCH (08:12)
[2021-02-22] MEDS: LIDOCAINE 5% 1 PATCH TD SCH (08:12)
[2021-02-22] MEDS: PANTOprazole 40 MG TAB PO SCH (08:12)
[2021-02-22] MEDS: FOLIC ACID 1 MG TAB PO SCH (08:13)
[2021-02-22] MEDS: ACETAMINOPHEN 500 MG TAB PO SCH ×3 (08:13→20:46)
[2021-02-22] MEDS: NYSTATIN SUSP 500,000 U/5 ML UDC PO SCH ×4 (08:13→20:46)
[2021-02-22] MEDS: POTASSIUM CHLORIDE CRTAB 20 MEQ TABCR PO SCH ×2 (08:18→20:46)
--- NOTE | 2021-02-22 08:28 | CT Scan Report ---
CT chest diagnostic wo con CLINICAL HISTORY: dyspnea; h/o lung ca, pericardial effusion COMPARISON STUDY: December 03, 2020 CT DOSE: 1084.13 mGy.cm TECHNIQUE: CT of the thorax was performed from the thoracic inlet to the lung bases. Images are revi ewed in the axial, sagittal, and coronal planes. IV contrast was not administered for this examinatio n. A dose lowering technique was utilized adhering to the principles of ALARA. FINDINGS: There is no axillary, supra clavicle or internal mammary lymphadenopathy seen. Mediastinal lymph nodes are not significantly enlarged. Thyroid: Imaged portions of the thyroid gland are normal in appearance. Small hiatal hernia is seen. Thoracic aorta: Thoracic aorta is normal in caliber, tortuous with extensive calcifications of its wa ll. Heart: Is normal in size. Mild pericardial effusion is unchanged since prior study performed in November 152020 severe coronary calcifications and possible stents. Lungs and pleural spaces: Tracheobronchial tree is patent. Mild atelectasis at dependent portions of bilateral lower lobes and lingular are seen. No large infiltrates or consolidative lesions are seen. No pleural effusion seen. Multiple pulmonary nodules are again seen throughout bilateral lungs and marked in PACs on series 4, grossly unchanged since prior study. Largest cluster of irregular solid nodules again seen at the rig ht upper lobe, associated with fissural tenting and measures up to 2.1 cm (4/100). Upper abdomen: Partially visualized upper abdominal viscera is within normal limits. Skeletal structures: Osteopenia and multilevel degenerative changes of the spine. Large Schmorl node mild superior endplate deformity of T3 was also seen during prior study. IMPRESSION: 1. Mild atelectasis at dependent portions of bilateral lower lobes. No large infiltrates or consolid ative lesions are seen. 2. Stable multiple pulmonary nodules, unchanged since prior study performed on December 03, 2020 as detai led above. 3. Atherosclerosis 4. Stable small pericardial effusion. 5. Compression fracture deformity of T3, stable since prior. 6. Atherosclerosis. 7. The rest of findings as above. ACT 112: Negative or not required by law. The above report was generated using voice recognition software. It may contain grammatical, syntax o r spelling errors. Electronically signed by: Judy Jenkins DO 02/22/2021 8:27 AM
[2021-02-22 08:49] LABS: BUN Creatinine Ratio 9.6 (10-20); Calcium 8.4 mg/dl (8.5-10.1); Creatinine Clr Calc Pharmacy 29.8 ml/min; Est GFR (African American) 29.7 ml/min; Est GFR (Non-African American) 25.7 ml/min; Magnesium 2.6 mg/dl (1.8-2.4)
[2021-02-22] MEDS: CELECOXIB 100 MG CAP PO SCH ×2 (11:11→11:13)
[2021-02-22 13:52] LABS: Appearance Urine Clear (Clear); Bacteria Urine Automated 4+ (Negative); Bilirubin Urine Negative (Negative); Blood Urine Negative (Negative); Color Urine Yellow; Epithelial Cell Urine Auto >30 /lpf (0-5); Glucose Urine UA Negative (Negative); Ketones Urine Trace (Negative); Leukocyte Esterase Urine Negative (Negative); Nitrite Urine Negative (Negative); Protein Urine Trace (Negative); Specific Gravity Urine 1.021 (1.000-1.030); Urobilinogen Urine Negative (Negative); pH Urine 5.5 (4.5-7.5)
[2021-02-22] MEDS: ALUMINUM/MAGNESIUM SUSP 30 ML UDC PO PRN (17:59)
[2021-02-23] MEDS: LEVOTHYROXINE SODIUM 112 MCG TABLET PO SCH (05:58)
[2021-02-23] MEDS: ALBUT/IPRATROP 3MG/0.5MG NEB 3 ML VIAL NEB SCH (07:25)
[2021-02-23 08:06] LABS: Calcium 8.4 mg/dl (8.5-10.1); Creatinine Clr Calc Pharmacy 28.7 ml/min; Est GFR (African American) 28.4 ml/min; Est GFR (Non-African American) 24.5 ml/min; Magnesium 2.5 mg/dl (1.8-2.4); Potassium 4.1 mmol/L (3.5-5.1)
[2021-02-23] MEDS ORDERED: ALBUT/IPRATROP 3MG/0.5MG NEB 3 ML VIAL NEB PRN (08:31)
--- NOTE | 2021-02-23 09:35 | Hospitalist Progress Note ---
Date of Service February 23, 2021 Assessment & Plan (1) Acute hypotension: Plan: Resolved likely hypovolemia, addisonian, however has gram negative uti poa started on rocephin, has previous E coli paiz sensitive hydrocortisone that was given in ER patient continues on solumedrol (will treat COPD flare, provide stress dose steroids for ACTH deficiency/adrenal insufficiency, treat suspected gout in b/l feet, and treat microscopic colitis). (2) Urinary tract infection: Plan: Patient is gram-negative urinary tract infection present on admission likely causing some metabolic encephalopathy, the patient is some low blood pressure but no other signs of sepsis at this time. She is currently started on ceftriaxone awaiting culture results (3) Generalized weakness: Plan: Consider metabolic encephalopathy, treating gram-negative urinary tract infection Numerous other etiologies likely contributing - low K, low mag, dehydration, low BP, ?superimposed infectious process of GI tract, etc. Replace low K and low mag. Stress-dose steroids. IV fluids. (4) Hypokalemia: Plan: Now replete (5) Acute chest pain: Plan: Resolved CT chest 02/21 IMPRESSION: 1. Mild atelectasis at dependent portions of bilateral lower lobes. No large infiltrates or consolidative lesions are seen. 2. Stable multiple pulmonary nodules, unchanged since prior study performed on December 03, 2020 as detailed above. 3. Atherosclerosis 4. Stable small pericardial effusion. 5. Compression fracture deformity of T3, stable since prior. 6. Atherosclerosis. no infectious process, to discuss follow up with cardiology with pcp regarding small pericardial effusion Troponin neg EKG unchanged from January EKG. Place on telemetry. (6) COPD with exacerbation: Plan: Dyspnea, wheezing improving . Solumedrol. Transition oral budesonide 9 mg daily as per GI recommendations upon discharge of 02/17/2021 Duoneb x [address] on qid duonebs. normal theophylline level, will continue (7) Gout of both feet: Plan: b/l foot and ankle x-rays without fracture. b/l foot x-rays also without CPPD changes. Thus, suspect mid-foot gout b/l. Pain is improved greatly with treatment of steroids Colchicine x 1 on admit elevated sed rate, crp uric acid. (8) Fall: Plan: Occurred upon arrival home from the hospital. Pain is being controlled CT lumbar spine - new L1 compression fracture. No concern for metastatic disease or oncologic related pain (9) Back pain: Plan: as above in #7. for pain - lidoderm patches; tylenol 1gm TID scheduled; morphine prn. (10) Microscopic colitis: Plan: dx made during the recent hospital stay. random biopsies c/w microscopic colitis. she has not improved as of yet with entocort 9mg daily. Cultures have been negative Resume her budesonide treatment if diarrhea is refractory re-consult GI. (11) ACTH deficiency: Plan: diagnosis made in early 2020. follows with Dr Kingston. felt to be due to Keytruda chemotherapy for her lung cancer. keytruda has since then been stopped. typically on hydrocortisone 20mg am, 10mg pm. 9 mg of budesonide would be equivalent to extremely high doses of hydrocortisone therefore should not need any supplementation if taking this medication (12) Hypothyroidism: Plan: nearly all TSHs in the last year have been elevated. compliance issues?? not absorbing the synthroid due to GI tract issues?? simply resume prior synthroid dose. (13) Chronic renal failure, stage 3 (moderate): Plan: Cr baseline about 1.4 to 1.8, most recently during prior stay the Cr was 1.3/1.4. (14) Hypertension: Plan: now w/ hypotension. continue to HOLD coreg and lasix. (15) Depression: Plan: cont zoloft (16) Diabetes: Plan: a1c in December was 7.7%. hold oral agents. place on novolog sliding scale as needed. DM diet. (17) Acute kidney injury superimposed on chronic kidney disease: Plan: mild CHRISTIAN. 2nd to #1. hydrate, bmp in am. (18) Hypomagnesemia: Plan: severe. presumably 2nd to poor oral intake & diarrhea. give 2 grams mag sulfate in ER now, then 1 additional gram on the floor. repeat mag level am. replace low K. (19) DVT prophylaxis: Plan: order heparin 5000 BID Plan: place on telemetry will need PT, OT once able to tolerate Admission and Anticipated Discharge Date Admission Date: February 21, 2021 Subjective This patient continues to have great improvement in her foot pain and back pain. She is found to have an L1 compression fracture which she is using topical and low level pain control this is been appropriate. She is found to have a gram negative uti poa Review of Systems Review of Systems: Moderate distress and fatigue no headache, no visual changes no speech or swallowing issues no chest pain, pressure or palpitations Initial shortness of breath is improved no abdominal pain, nausea or vomiting, diarrhea or constipation no dysuria, hematuria or frequency Planes of lumbar back pain without radiation and bilateral foot pain and movement She has no CVA tenderness or radicular pain no bruising, bleeding or rashes no focal signs of weakness or numbness or altered sensation no complaints of anxiety or depression.. Physical Exam Physical Exam: The patient appeared well nourished and normally developed. Vital signs as documented. Head exam is normocephalic atraumatic Neck is without JVD, thyromegaly, or carotid bruits. Lungs are clear to auscultation, diminished air movement bilaterally no focal loss of breath sounds Cardiac exam, Rhythm is regular.. No murmurs, rubs or gallops. Abdominal exam reveals normal bowel sounds, soft non tender, no masses Extremities are trace edematous and both feet are exquisitely tender to touch Neurologic exam is alert and oriented, no focal loss of strength or sensation there is no radicular pain associate palpation of back or movement of legs Skin is without bruises or rashes Psychologically is without concerns for anxiety or depression Results & Data Results & Data ([facility]) Vital Signs (Past 12 Hours) Vital Signs Temp Pulse Resp BP Pulse Ox 02/23/21 07:25 87 18 02/23/21 07:08 97.7 F 68 16 118/65 96 02/22/21 22:23 98.1 F 81 16 105/61 95 PG Care Time/CCT Total # of Minutes Spent Total Time Spent with Patient: Total time spent is greater than 50% in coordination of care (as documented) at patient's floor/unit and/or counseling patient: Coding Level of Care Code 23988 Subseq Hosp Care Lvl 3 Diagnoses Acute hypotension I95.9 Generalized weakness R53.1 Hypokalemia E87.6 Acute chest pain R07.9 COPD with exacerbation J44.1 Gout of both feet M10.9 Fall W19.XXXA Encounter type: initial encounter Back pain M54.9 Microscopic colitis K52.839 ACTH deficiency E23.6 Hypothyroidism E03.9 Chronic renal failure, stage 3 (moderate) N18.30 Chronic kidney disease stage 3 subtype: unspecified whether 3a or 3b Hypertension I10 Depression F32.9 Diabetes E11.9 Acute kidney injury superimposed on chronic kidney disease N17.9; N18.9 Hypomagnesemia E83.42 DVT prophylaxis Z29.9 Urinary tract infection N39.0 (1) Chronic renal failure, stage 3 (moderate) Chronic kidney disease stage 3 subtype: unspecified whether 3a or 3b Qualified Code(s): N18.30 - Chronic kidney disease, stage 3 unspecified (2) Fall Encounter type: initial encounter Qualified Code(s): W19.XXXA - Unspecified fall, initial encounter
[2021-02-23] MEDS: INSULIN ASPART 100 UNITS/ML 3 ML PEN SC SCH ×4 (09:40→21:13)
[2021-02-23] MEDS: SERTRALINE HCL 100 MG TABLET PO SCH (09:42)
[2021-02-23] MEDS: ACETAMINOPHEN 500 MG TAB PO SCH ×3 (09:42→21:12)
[2021-02-23] MEDS: FOLIC ACID 1 MG TAB PO SCH (09:43)
[2021-02-23] MEDS: PANTOprazole 40 MG TAB PO SCH (09:44)
[2021-02-23] MEDS: NYSTATIN SUSP 500,000 U/5 ML UDC PO SCH ×4 (09:44→21:11)
[2021-02-23] MEDS: methylPREDNISolone 40 MG in SYRINGE 0 ML IV SCH ×2 (09:46→21:10)
[2021-02-23] MEDS: LIDOCAINE 5% 1 PATCH TD SCH (09:47)
[2021-02-23] MEDS: POTASSIUM CHLORIDE CRTAB 20 MEQ TABCR PO SCH ×2 (09:49→21:12)
[2021-02-23] MEDS: cefTRIAXone SODIUM 2,000 MG in DEXTROSE 5% 50 ML IV SCH (11:06)
[2021-02-23] MEDS: ALUMINUM/MAGNESIUM SUSP 30 ML UDC PO PRN (11:19)
[2021-02-24] MEDS: LEVOTHYROXINE SODIUM 112 MCG TABLET PO SCH (05:45)
[2021-02-24 07:36] LABS: Hematocrit (blood only) 29.8 % (37-47); Hemoglobin 9.9 g/dL (12.0-16.0); Mean Corpuscular Hemoglobin 28.7 pg (25-34); Mean Corpuscular Hgb Conc 33.2 g/dL (32-36); Mean Corpuscular Volume 86.4 fL (80-100); Mean Platelet Volume 10.2 fL (7.4-10.4); Platelet Count 244 K/uL (130-400); RDW Coefficient of Variation 16.8 % (11.5-14.5); RDW Standard Deviation 53.4 fL (36.4-46.3); Red Blood Count 3.45 M/uL (4.2-5.4); White Blood Count 7.14 K/uL (4.8-10.8)
[2021-02-24 08:38] LABS: BUN Creatinine Ratio 17.1 (10-20); Calcium 8.3 mg/dl (8.5-10.1); Est GFR (African American) 31.1 ml/min; Est GFR (Non-African American) 26.9 ml/min; Magnesium 2.7 mg/dl (1.8-2.4); Potassium 4.6 mmol/L (3.5-5.1)
[2021-02-24] MEDS: FOLIC ACID 1 MG TAB PO SCH (09:19)
[2021-02-24] MEDS: BUDESONIDE EC 3 MG CAP PO SCH (09:20)
[2021-02-24] MEDS: SERTRALINE HCL 100 MG TABLET PO SCH (09:20)
[2021-02-24] MEDS: PANTOprazole 40 MG TAB PO SCH (09:20)
[2021-02-24] MEDS: LIDOCAINE 5% 1 PATCH TD SCH (09:21)
[2021-02-24] MEDS: ACETAMINOPHEN 500 MG TAB PO SCH ×3 (09:23→21:39)
[2021-02-24] MEDS: NYSTATIN SUSP 500,000 U/5 ML UDC PO SCH ×4 (09:25→21:39)
[2021-02-24] MEDS: cefTRIAXone SODIUM 2,000 MG in DEXTROSE 5% 50 ML IV SCH (09:27)
[2021-02-24] MEDS: INSULIN ASPART 100 UNITS/ML 3 ML PEN SC SCH ×4 (09:29→21:41)
[2021-02-24] MEDS: POTASSIUM CHLORIDE CRTAB 20 MEQ TABCR PO SCH ×3 (10:18→22:11)
--- NOTE | 2021-02-24 19:19 | Hospitalist Progress Note ---
Date of Service February 24, 2021 Assessment & Plan (1) Acute hypotension: Plan: Resolved likely hypovolemia, addisonian, howeverstarted on rocephin, to treat E coli that is paiz sensitive hydrocortisone that was given in ER patient continues on solumedrol (will treat COPD flare, provide stress dose steroids for ACTH deficiency/adrenal insufficiency, treat suspected gout in b/l feet, and treat microscopic colitis). (2) Urinary tract infection: Plan: Patient has E Coli urinary tract infection present on admission likely causing some metabolic encephalopathy, the patient is some low blood pressure but no other signs of sepsis at this time. She is currently started on ceftriaxone can transition to po Cefdinir at discharge (3) Generalized weakness: Plan: Consider metabolic encephalopathy, treating gram-negative urinary tract infection Numerous other etiologies likely contributing - low K, low mag, dehydration, low BP, ?superimposed infectious process of GI tract, etc. Replace low K and low mag. Stress-dose steroids , now transitioned to endocort IV fluids. (4) Hypokalemia: Plan: Now replete (5) Acute chest pain: Plan: Resolved CT chest 02/21 IMPRESSION: 1. Mild atelectasis at dependent portions of bilateral lower lobes. No large infiltrates or consolidative lesions are seen. 2. Stable multiple pulmonary nodules, unchanged since prior study performed on December 03, 2020 as detailed above. 3. Atherosclerosis 4. Stable small pericardial effusion. 5. Compression fracture deformity of T3, stable since prior. 6. Atherosclerosis. no infectious process, to discuss follow up with cardiology with pcp regarding small pericardial effusion Troponin neg EKG unchanged from January EKG. Place on telemetry. (6) COPD with exacerbation: Plan: Dyspnea, wheezing improving . Solumedrol. Transition oral budesonide 9 mg daily as per GI recommendations upon discharge of 02/17/2021 normal theophylline level, will continue (7) Gout of both feet: Plan: b/l foot and ankle x-rays without fracture. b/l foot x-rays also without CPPD changes. Thus, suspect mid-foot gout b/l. Pain is improved greatly with treatment of steroids Colchicine x 1 on admit elevated sed rate, crp uric acid. (8) Fall: Plan: Occurred upon arrival home from the hospital. Pain is being controlled CT lumbar spine - new L1 compression fracture. No concern for metastatic disease or oncologic related pain (9) Back pain: Plan: for pain - lidoderm patches; tylenol 1gm TID scheduled; morphine prn. (10) Microscopic colitis: Plan: dx made during the recent hospital stay. random biopsies c/w microscopic colitis. entocort 9mg daily. 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 follows with Dr Kingston. felt to be due to Keytruda chemotherapy for her lung cancer. keytruda has since then been stopped. typically on hydrocortisone 20mg am, 10mg pm. 9 mg of budesonide would be equivalent to extremely high doses of hydrocortisone therefore should not need any supplementation if taking this medication (12) Hypothyroidism: Plan: nearly all TSHs in the last year have been elevated. compliance issues?? not absorbing the synthroid due to GI tract issues?? simply resume prior synthroid dose. (13) Chronic renal failure, stage 3 (moderate): Plan: Cr baseline about 1.4 to 1.8, most recently during prior stay the Cr was 1.3/1.4. (14) Hypertension: Plan: now w/ hypotension. continue to HOLD coreg and lasix. (15) Depression: Plan: cont zoloft (16) Diabetes: Plan: a1c in December was 7.7%. hold oral agents. place on novolog sliding scale as needed. DM diet. (17) Acute kidney injury superimposed on chronic kidney disease: Plan: mild CHRISTIAN. 2nd to #1. hydrate, bmp in am. (18) Hypomagnesemia: Plan: severe. presumably 2nd to poor oral intake & diarrhea. give 2 grams mag sulfate in ER now, then 1 additional gram on the floor. repeat mag level am. replace low K. (19) DVT prophylaxis: Plan: order heparin 5000 BID Plan: place on telemetry will need PT, OT once able to tolerate Admission and Anticipated Discharge Date Admission Date: February 21, 2021 Subjective This patient continues to have great improvement in her foot pain and back pain. She is found to have an L1 compression fracture which she is using topical and low level pain control this is been appropriate. She is found to have a gram negative uti poa. she has not been meaningfully out of bed and will have PT evalution Review of Systems Review of Systems: Moderate distress and fatigue no headache, no visual changes no speech or swallowing issues no chest pain, pressure or palpitations Initial shortness of breath is improved no abdominal pain, nausea or vomiting, diarrhea or constipation no dysuria, hematuria or frequency Planes of lumbar back pain without radiation and bilateral foot pain and movement She has no CVA tenderness or radicular pain no bruising, bleeding or rashes no focal signs of weakness or numbness or altered sensation no complaints of anxiety or depression.. Physical Exam Physical Exam: The patient appeared well nourished and normally developed. Vital signs as documented. Head exam is normocephalic atraumatic Neck is without JVD, thyromegaly, or carotid bruits. Lungs are clear to auscultation, diminished air movement bilaterally no focal loss of breath sounds Cardiac exam, Rhythm is regular.. No murmurs, rubs or gallops. Abdominal exam reveals normal bowel sounds, soft non tender, no masses Extremities are trace edematous and both feet are exquisitely tender to touch Neurologic exam is alert and oriented, no focal loss of strength or sensation there is no radicular pain associate palpation of back or movement of legs Skin is without bruises or rashes Psychologically is without concerns for anxiety or depression Results & Data Results & Data ([facility]) Vital Signs (Past 12 Hours) Vital Signs Temp Pulse Resp BP Pulse Ox 02/24/21 15:37 98.1 F 70 18 129/68 95 02/24/21 07:35 98.2 F 64 18 157/84 H 97 PG Care Time/CCT Total # of Minutes Spent Total Time Spent with Patient: Total time spent is greater than 50% in coordination of care (as documented) at patient's floor/unit and/or counseling patient: Coding Level of Care Code 53323 Subseq Hosp Care Lvl 3 Diagnoses Acute hypotension I95.9 Urinary tract infection N39.0 Generalized weakness R53.1 Hypokalemia E87.6 Acute chest pain R07.9 COPD with exacerbation J44.1 Gout of both feet M10.9 Fall W19.XXXA Encounter type: initial encounter Back pain M54.9 Microscopic colitis K52.839 ACTH deficiency E23.6 Hypothyroidism E03.9 Chronic renal failure, stage 3 (moderate) N18.30 Chronic kidney disease stage 3 subtype: unspecified whether 3a or 3b Hypertension I10 Depression F32.9 Diabetes E11.9 Acute kidney injury superimposed on chronic kidney disease N17.9; N18.9 Hypomagnesemia E83.42 DVT prophylaxis Z29.9 (1) Fall Encounter type: initial encounter Qualified Code(s): W19.XXXA - Unspecified fall, initial encounter (2) Chronic renal failure, stage 3 (moderate) Chronic kidney disease stage 3 subtype: unspecified whether 3a or 3b Qualified Code(s): N18.30 - Chronic kidney disease, stage 3 unspecified
[2021-02-25] MEDS: LEVOTHYROXINE SODIUM 112 MCG TABLET PO SCH (05:34)
[2021-02-25 06:11] LABS: BUN Creatinine Ratio 18.2 (10-20); Calcium 8.2 mg/dl (8.5-10.1); Creatinine Clr Calc Pharmacy 30.4 ml/min; Est GFR (African American) 30.5 ml/min; Est GFR (Non-African American) 26.3 ml/min; Magnesium 2.2 mg/dl (1.8-2.4); Potassium 4.6 mmol/L (3.5-5.1)
[2021-02-25] MEDS: INSULIN ASPART 100 UNITS/ML 3 ML PEN SC SCH ×2 (09:28→14:04)
[2021-02-25] MEDS: NYSTATIN SUSP 500,000 U/5 ML UDC PO SCH ×2 (09:28→14:04)
[2021-02-25] MEDS: LIDOCAINE 5% 1 PATCH TD SCH (09:29)
[2021-02-25] MEDS: FOLIC ACID 1 MG TAB PO SCH (09:30)
[2021-02-25] MEDS: PANTOprazole 40 MG TAB PO SCH (09:30)
[2021-02-25] MEDS: BUDESONIDE EC 3 MG CAP PO SCH (09:30)
[2021-02-25] MEDS: SERTRALINE HCL 100 MG TABLET PO SCH (09:31)
[2021-02-25] MEDS: ACETAMINOPHEN 500 MG TAB PO SCH ×2 (09:33→14:04)
[2021-02-25] MEDS: cefTRIAXone SODIUM 2,000 MG in DEXTROSE 5% 50 ML IV SCH (09:34)
--- NOTE | 2021-02-25 17:35 | Discharge Summary ---
Date of Service February 25, 2021 Admission HPI Per Admitting Provider 75yo female with history of lung cancer followed by Dr Jan Simon, COVID-19 infection 05/2020, ACTH deficiency leading to adrenal insufficiency thought 2nd to Keytruda chemotherapy, and recent hospital stay for severe diarrhea presents from her home in [facility] via EMS due to extreme weakness. She was released to home on Tuesday after a colonoscopy during that stay showed lymphocytic colitis. Tuesday afternoon she was walking from the car to the front step that leads to the porch. Her "back gave out" - "like a spasm" - which made her fall to the ground. Tuesday night she had severe pain/swelling in her left mid-foot. She then developed severe pain/swelling in her right mid-foot. Pain is relatively constant but is worse when she walks/bears weight. She continued with diarrhea all day Tuesday and . 5-6 times/day. Liquid, no blood. She continues with mild abdominal upset/pain. She has had worsening back pain. Present in lumbar spine. It was apparently bothering her during the prior hospitalization. Back pain has been present "for a few weeks." On she lost her appetite. Drinking fluids, but not eating. Had nausea and vomiting today. Lastly, she c/o dyspnea. This started last pm. She has the dyspnea at rest and it is much worse with exertion/walking. Minimal cough. She continues to take the hydrocortisone 20mg am and 10mg pm ALONG WITH the budesonide daily for lymphocytic colitis. Principal Diagnosis urinary tract infection present on admission low blood pressure resolved lung nodules seen and will need follow up copd exacerbation microscopic colitis gout of both feet and ankles chronic back pain, now worse, due to compression fracture adrenal suppression from chronic steroids use Discharge Exam The patient appeared well Vital signs as documented. Lungs are clear to auscultation poor air movement from chronic COPD Cardiac exam, Rhythm is regular.. No murmurs, rubs or gallops. Abdominal exam reveals normal bowel sounds, soft non tender, no masses Extremities are nonedematous and both pedal pulses are normal. Does have some minor ankle pain to palpation Neurologic exam is alert and oriented, no focal loss of strength or sensation Skin is without bruises or rashes Psychologically is without concerns for anxiety or depression. Discharge Data Allergies Allergy/AdvReac Type Severity Reaction Status Date / Time adhesive Allergy Unknown PULLS SKIN Verified 02/21/21 20:33 OFF Penicillins Allergy Unknown TONGUE Verified 02/21/21 20:33 SWELLING azithromycin AdvReac Unknown Nausea Verified 02/21/21 20:33 Consultations 02/21/21 17:56 ED Decision to Admit Stat Ordered Studies 02/21/21 19:40 CT chest diagnostic wo con Urgent CT lumbar spine wo con Urgent Hospital Course (1) Acute hypotension: Resolved likely hypovolemia, addisonian,sirs/infectious -> E coli that is paiz sensitive hydrocortisone that was given in ER patient continues on endocort (will treat COPD flare, provide steroids for ACTH deficiency/adrenal insufficiency, treat suspected gout in b/l feet, and treat microscopic colitis). (2) Urinary tract infection: Patient has E Coli urinary tract infection present on admission likely causing some metabolic encephalopathy, the patient is some low blood pressure but no other signs of sepsis at this time. She is currently started on ceftriaxone can transition to po Cefdinir at discharge (3) Generalized weakness: Consider metabolic encephalopathy, treating gram-negative urinary tract infection Numerous other etiologies likely contributing - low K, low mag, dehydration, low BP, ?superimposed infectious process of GI tract, etc. Replace low K and low mag. Stress-dose steroids , now transitioned to endocort (4) Hypokalemia: Now replete (5) Acute chest pain: Resolved CT chest 02/21 IMPRESSION: 1. Mild atelectasis at dependent portions of bilateral lower lobes. No large infiltrates or consolidative lesions are seen. 2. Stable multiple pulmonary nodules, unchanged since prior study performed on December 03, 2020 as detailed above. 3. Atherosclerosis 4. Stable small pericardial effusion. 5. Compression fracture deformity of T3, stable since prior. 6. Atherosclerosis. no infectious process, to discuss follow up with cardiology with pcp regarding small pericardial effusion Troponin neg EKG unchanged from January EKG. (6) COPD with exacerbation: Dyspnea, wheezing improving . Solumedrol. Transition oral budesonide 9 mg daily as per GI recommendations upon discharge of 02/17/2021 normal theophylline level, (7) Gout of both feet: b/l foot and ankle x-rays without fracture. b/l foot x-rays also without CPPD changes. Thus, suspect mid-foot gout b/l. Pain is improved greatly with treatment of steroids Colchicine x 1 on admit elevated sed rate, crp uric acid. (8) Fall: Occurred upon arrival home from the hospital. Pain is being controlled CT lumbar spine - new L1 compression fracture. No concern for metastatic disease or oncologic related pain (9) Back pain: [place] to be mechanical not radicular rec related to her compression fractures (10) Microscopic colitis: dx made during the recent hospital stay. random biopsies c/w microscopic colitis. entocort 9mg daily. Once Entocort stops will return to her hydrocortisone dosing Cultures have been negative (11) ACTH deficiency: diagnosis made in early 2020. follows with Dr Kingston. felt to be due to Keytruda chemotherapy for her lung cancer. keytruda has since then been stopped. typically on hydrocortisone 20mg am, 10mg pm. 9 mg of budesonide would be equivalent to extremely high doses of hydrocortisone therefore should not need any supplementation if taking this medication once in accord stops to resume her typical hydrocortisone dosing (12) Hypothyroidism: nearly all TSHs in the last year have been elevated. compliance issues?? not absorbing the synthroid due to GI tract issues?? simply resume prior synthroid dose. (13) Chronic renal failure, stage 3 (moderate): Cr baseline about 1.4 to 1.8, most recently during prior stay the Cr was 1.3/1.4. (14) Hypertension: Blood pressure remained controlled during her hospital stay her carvedilol is being held at discharge (15) Depression: cont zoloft (16) Diabetes: a1c in December was 7.7%. Certainly steroids may worsen her glycemic control however will resume her outpatient prehospital glycemic control regiment and encourage her to have more stringent dietary restrictions while she is on her steroids (17) Acute kidney injury superimposed on chronic kidney disease: mild CHRISTIAN. 2nd to #1. Resolved (18) Hypomagnesemia: Resolved Total Time Total Time Spent Total Time Spent (In Minutes): It required greater than 30 minutes to prepare this patient for discharge Discharge Plan Discharge Items Patient Disposition: Home - Self-Care Reason For Visit: SEVERE B/L FOOT PAIN, DYSPNEA, SEVERE BACK PAIN, Discharge Diagnosis: urinary tract infection present on admission low blood pressure resolved lung nodules seen and will need follow up copd flare up microscopic colitis gout of both feet and ankles chronic back pain, now worse, due to compression fracture adrenal supression from chronic steroids use Activity: Resume your previous activity Non-emergency contact: Primary Care Provider and Flat Screen Worker Call non-emergency contact if: your symptoms worsen, your pain is not controlled and you have a fever Follow-up/Referrals: Arthur Cruz [Primary Care Provider] - 03/03/21 1:45 pm Diet: Carb Consistent or DM2 Addtl Attending Provider Instructions: please take your endocort daily until you are told to stop by the GI specialist, once you stop this resume your previous home hydrocortisone, the endocort(budesonide) is a substitute for that while you are on it. these medication may make your blood sugar go up so while taking them it is improtant to limit high sugar content foods complete the antibiotics by mouth for your e coli urinary infection you will be contacted by the hospital for repeat lung imaging in the future to keep track of the nodules seen in your lungs Pending Studies at Discharge: No Stand-Alone Forms: [employer], Smoking Cessation Medications and DC Order Prescriptions: New cefdinir 300 mg capsule 300 mg PO BID 5 Days Qty: 10 RF: 0 Continued sertraline 100 mg tablet 100 mg PO QAM RF: 0 theophylline 300 mg tablet extended release 12 hr 300 mg PO BID RF: 0 folic acid 1 mg tablet 1 mg PO QAM RF: 0 Combivent Respimat 20-100 mcg/actuation Mist 1 puff INHALATION Q4H PRN (Reason: Shortness Of Breath Or Wheezing) RF: 0 furosemide 20 mg tablet 20 mg PO DAILY PRN (Reason: Swelling) RF: 0 esomeprazole magnesium 20 mg capsule,delayed release(DR/EC) 20 mg PO HS RF: 0 ondansetron HCl [Zofran] 4 mg tablet 4 mg PO Q6H PRN (Reason: nausea and vomiting) Qty: 6 RF: 0 levothyroxine 112 mcg tablet 112 mcg PO DAILY RF: 0 diphenoxylate-atropine 2.5-0.025 mg Tablet 1 tab PO Q3HWA PRN (Reason: diarrhea) 10 Days Qty: 90 RF: 0 potassium chloride [Klor-Con M20] 20 mEq Tablet,Er Particles/Crystals 20 meq PO BID 7 Days Qty: 14 RF: 0 budesonide 3 mg Capsule,Delayed,Extend.Release 9 mg PO QAM 28 Days Qty: 84 RF: 1 Metamucil (with sugar) 3.4 gram powder in packet 1 pkg PO QAM PRN (Reason: ..) RF: 0 albuterol sulfate 2.5 mg /3 mL (0.083 %) solution for nebulization 2.5 mg continuous nebulization Q4 PRN (Reason: cough,sob) RF: 0 icosapent ethyl [Vascepa] 1 gram capsule 2 g PO BIDM RF: 0 Discontinued carvedilol 6.25 mg tablet 6.25 mg PO BID RF: 0 sitagliptin 50 mg tablet 50 mg PO QAM RF: 0 hydrocortisone 10 mg tablet 10 mg PO UD Qty: 90 RF: 5 Discharge Orders: Discharge Order (Routine); Ordered 02/25/21 Ordered By: Tyron Topete/Other Patient Handouts: Understanding Urinary Tract ... Admission Data Admit Date/Time: 02/21/21 19:42 Attending Provider: Tyron López Admit Provider: Marco Murphy Primary Care Provider: Arthur Cruz Other Providers: Marco Murphy Other Interventions: Discharge Summary Assessment (RN) Last Done: 02/25/21 14:05 Coding Level of Care Code D/C DAY MANAGEMENT >30 MINS Diagnoses Acute hypotension I95.9 Urinary tract infection N39.0 Generalized weakness R53.1 Hypokalemia E87.6 Acute chest pain R07.9 COPD with exacerbation J44.1 Gout of both feet M10.9 Fall W19.XXXA Encounter type: initial encounter Back pain M54.9 Microscopic colitis K52.839 ACTH deficiency E23.6 Hypothyroidism E03.9 Chronic renal failure, stage 3 (moderate) N18.30 Chronic kidney disease stage 3 subtype: unspecified whether 3a or 3b Hypertension I10 Depression F32.9 Diabetes E11.9 Acute kidney injury superimposed on chronic kidney disease N17.9; N18.9 Hypomagnesemia E83.42
== END 2021-02-25 16:00 | disposition home or self-care (01) ==
LOC: ED 16:37 → SUATTDRO 19:42 → INTOOBSV 19:42 → 2S 19:42 → 3W 02-22 11:24

== ENCOUNTER 2021-02-27 11:35 | Inpatient (IN) ==
[2021-02-27] MEDS ORDERED: SODIUM CHLORIDE 0.9% 500 ML IV STA (12:36)
[2021-02-27] MEDS ORDERED: ACETAMINOPHEN 1000 MG/100 ML IV IV STA (12:36)
[2021-02-27] MEDS ORDERED: ONDANSETRON INJ 2 MG/ML 2 ML VIAL IV STA (12:36)
--- NOTE | 2021-02-27 12:47 | Emergency Department Note ---
Impression & Plan Diffuse abdominal pain, Vomiting, Fever, CRF (chronic renal failure) ED Provider Note NAME: FELISA SCHWAB AGE: 75 SEX: F : 1945 ARRIVES VIA: Ambulance INFORMANT: [Patient] ED PROVIDER(S): [Jaxon Evans MD] CHIEF COMPLAINT: Vomiting HISTORY OF PRESENT ILLNESS: The patient is a 75-year old female who presents to the ER with vomiting since this morning. She has some diffuse abdominal pain. She tried Zofran which has not helped. Patient denies any chest pain but she does feel somewhat short of breath. She also complains of some back pain which she thinks is from a recently diagnosed compression fracture. She denies any urinary complaints. She denies any fever. The patient does not have any history of recent sick contacts. She has no recollection of any bad food eaten that may have caused her symptoms. REVIEW OF SYSTEMS: See HPI for pertinent positives and negatives. A total of ten systems were reviewed and were otherwise negative. PMHx/PSHx: See Below SOCIAL HISTORY: See Below. PHYSICAL EXAM: GENERAL: Patient is in no acute distress. HEENT: No acute trauma, normocephalic atraumatic, mucous membranes moist, no nasal congestion, no scleral icterus. NECK: No stridor, no adenopathy, no meningismus, trachea is midline. LUNGS: Clear to auscultation bilaterally, no wheeze, no rhonchi, breath sounds equal. HEART: Without murmurs gallops or rubs, regular rate and rhythm. ABDOMEN: Soft, mildly diffusely tender, bowel sounds positive, no hernias, no peritonitis. EXTREMITIES: No cyanosis or edema, full range of motion of all the joints without pain or difficulty, no signs for acute trauma. NEUROLOGIC: Oriented x 3, no acute motor or sensory deficits, no focal weakness. SKIN: No rash, no jaundice, no diaphoresis. DIFFERENTIAL DIAGNOSIS: Appendicitis, diverticulitis, UTI, obstruction, mesenteric ischemia, aortic pathology, inflammatory bowel disease, renal colic, PUD, pancreatitis, biliary pathology, hernia, volvulus, constipation, as well as other pathologies. EMERGENCY DEPARTMENT COURSE/PROCEDURES: ECG: Indication was vomiting. The ECG shows a sinus tachycardia with a rate of 102. There is some nonspecific ST change. No ST elevation. No PVCs. The QTc is 463. Compared to an ECG from 21 February 2021, the rate has decreased. Continuous Cardiac Monitoring: An order was placed for continuous cardiac monitoring. The monitor shows a rate of 99 with normal sinus rhythm. MEDICAL DECISION MAKING: There is no leukocytosis or concerning anemia. There is a normal platelet count. There is an elevation to the creatinine 1.86 although, this appears baseline. No worrisome electrolyte abnormality. Lactic acid level is not elevated making sepsis less likely. There is no liver enzyme elevation. No evidence for pancreatitis. ECG shows a sinus tachycardia, no acute ischemia. Cardiac enzyme testing x1 is not consistent with acute cardiac injury. Urinalysis does not show infection. Covid testing returned negative. Chest x- ray does not show pneumonia or CHF. Abdominal and pelvis CT shows some str anding to her kidneys concerning for possible infection, no urinary obstruction, no bowel obstruction. On exam, the patient was not toxic. She did not have peritonitis. She was febrile. The patient received IV Ativan and IV Toradol. She was given IV Zofran and IV saline. A second bolus of IV saline was given. She received IV cefepime as empiric antibiotic coverage. The patient's temperature actually increased here in the ED before decreasing. Her vomiting seems controlled now with the Zofran. At this point, I am not sure how to explain her fever. I find no source by work-up. I do think a hospital stay is warranted given her presentation, given her vomiting. She was just in the hospital and is not doing well at home. I spoke to the patient and case management. The on-call hospitalist was consulted. Past Med/Surg History Medical History Abdominal pain ACTH deficiency Acute kidney injury superimposed on chronic kidney disease Adrenal adenoma Arthritis Chronic renal failure, stage 3 (moderate) COPD (chronic obstructive pulmonary disease) COVID-19 05/2020 Depression Diabetes Hypoxia Lung cancer 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 Neutropenic fever Orthostatic hypotension Right knee DJD Secondary adrenal insufficiency Surgical History Hx of right knee surgery Family History Mother Heart disease Father , in his 90s - old age COPD (chronic obstructive pulmonary disease) Other Diabetes Hypertension Lung disease Social History Smoking Status: Former smoker Tobacco Type: Cigarettes Age Started Using Tobacco: 19; Age Quit Using Tobacco: 75; packs per day: 0.5; Second Hand Exposure: No; Hx Alcohol Use: No Hx Substance Use: No Preferred Language: Turkish Communication Ability: Effective 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 Beliefs That Will Affect Care: None marital status: / Current Living Situation: Family Current Living Situation Comment: grand daughter stays with PT current occupational status: retired How many Children do You have: 4 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 Feels Safe at Home: Yes Assistive Devices: Oxygen - Continuous and Walker Allergies Allergies Allergy/AdvReac Type Severity Reaction Status Date / Time adhesive Allergy Unknown PULLS SKIN Verified 02/27/21 14:07 OFF Penicillins Allergy Unknown TONGUE Verified 02/27/21 14:07 SWELLING azithromycin AdvReac Unknown Nausea Verified 02/27/21 14:07 Home Meds Home Medications Medication Instructions Recorded Confirmed folic acid 1 mg tablet 1 mg PO QAM 07/17/18 02/27/21 ipratropium 20 mcg-albuterol 100 1 puff INHALATION Q4H PRN 07/17/18 02/27/21 mcg/actuation mist for inhalation (Combivent Respimat) sertraline 100 mg tablet (Zoloft) 100 mg PO QAM 07/17/18 02/27/21 theophylline 300 mg 300 mg PO BID 07/17/18 02/27/21 tablet,extended release,12 hr esomeprazole magnesium 20 mg 20 mg PO HS 06/28/20 02/27/21 capsule,delayed release (Nexium) furosemide 20 mg tablet (Lasix) 20 mg PO DAILY PRN 06/28/20 02/27/21 albuterol sulfate 2.5 mg CONTINUOUS NEBULIZATION Q4 01/15/21 02/27/21 PRN icosapent ethyl 1 gram capsule 2 g PO BIDM 01/15/21 02/27/21 (Vascepa) levothyroxine 112 mcg tablet 112 mcg PO DAILYBB 02/09/21 02/27/21 (Synthroid) budesonide 3 mg 9 mg PO QAM 02/27/21 02/27/21 capsule,delayed,extended release (Entocort EC) carvedilol 6.25 mg tablet (Coreg) 6.25 mg PO BID 02/27/21 02/27/21 sitagliptin 50 mg tablet (Januvia) 50 mg PO QAM 02/27/21 02/27/21 Previous Rx's Medication Instructions Recorded cefdinir 300 mg capsule 300 mg PO BID 5 Days #10 cap 02/25/21 Results & Data (ED) Vital Signs Vital Signs - 24 hr 02/27/21 11:21 02/27/21 11:39 02/27/21 12:00 Temperature 37.9 C H Temperature Source Oral Pulse Rate 100 H 104 H 91 H Pulse Rate from SpO2 Sensor 104 H 94 H Pulse Rhythm Regular Pulse Strength Normal Respiratory Rate 15 20 24 Respiratory Effort / Characteristics Non-Labored Spontaneous Respiratory Depth Normal Respiratory Pattern Regular Blood Pressure 116/72 116/72 139/74 Blood Pressure Mean 86 86 95 Blood Pressure Position Lying Pulse Oximetry 93 92 92 Oxygen Delivery Method Room Air Room Air Room Air Sepsis Recent Fever Within 48 Hours Yes Sepsis New/Unexplained Change in Mental Status N/A Sepsis Action Taken by Nursing No Action Required 02/27/21 12:30 02/27/21 12:37 02/27/21 13:00 Temperature Temperature Source Pulse Rate 97 H 103 H Pulse Rate from SpO2 Sensor 97 H 104 H Pulse Rhythm Pulse Strength Respiratory Rate 24 22 Respiratory Effort / Characteristics Respiratory Depth Respiratory Pattern Blood Pressure 158/80 H 112/91 Blood Pressure Mean 106 98 Blood Pressure Position Pulse Oximetry 90 93 94 Oxygen Delivery Method Room Air Room Air Room Air Sepsis Recent Fever Within 48 Hours Sepsis New/Unexplained Change in Mental Status Sepsis Action Taken by Nursing 02/27/21 13:30 02/27/21 14:00 02/27/21 14:04 Temperature 39.1 C H Temperature Source Oral Pulse Rate 93 H 95 H Pulse Rate from SpO2 Sensor 94 H 94 H Pulse Rhythm Pulse Strength Respiratory Rate 22 24 Respiratory Effort / Characteristics Respiratory Depth Respiratory Pattern Blood Pressure 129/72 143/73 H Blood Pressure Mean 91 96 Blood Pressure Position Pulse Oximetry 94 91 Oxygen Delivery Method Room Air Room Air Sepsis Recent Fever Within 48 Hours Sepsis New/Unexplained Change in Mental Status Sepsis Action Taken by Nursing 02/27/21 14:30 02/27/21 14:50 Temperature 37.7 C H Temperature Source Oral Pulse Rate 96 H Pulse Rate from SpO2 Sensor 96 H Pulse Rhythm Pulse Strength Respiratory Rate 24 Respiratory Effort / Characteristics Respiratory Depth Respiratory Pattern Blood Pressure 98/52 L Blood Pressure Mean 67 Blood Pressure Position Pulse Oximetry 91 Oxygen Delivery Method Sepsis Recent Fever Within 48 Hours Sepsis New/Unexplained Change in Mental Status Sepsis Action Taken by [facility] Medications Current Medication List: was personally reviewed by me Laboratory Data Attestation: I reviewed the patient's lab results. Result diagrams: 02/27/21 11:52 02/27/21 11:52 Lab Results 02/27/21 02/27/21 02/27/21 Range/Units 11:52 11:52 12:07 WBC 8.13 (4.8-10.8) K/uL RBC 4.26 (4.2-5.4) M/uL Hgb 12.2 (12.0-16.0) g/dL Hct 37.3 (37-47) % MCV 87.6 (80-100) fL MCH 28.6 (25-34) pg MCHC 32.7 (32-36) g/dL RDW Std Deviation 53.2 H (36.4-46.3) fL RDW Coeff of Maye 16.5 H (11.5-14.5) % Plt Count 236 (130-400) K/uL MPV 10.3 (7.4-10.4) fL Immature Gran % (Auto) 0.5 % Neut % (Auto) 75.4 % Lymph % (Auto) 7.4 % [place] % (Auto) 5.0 % Eos % (Auto) 11.6 % Baso % (Auto) 0.1 % Neut # (Auto) 6.13 (1.4-6.5) K/uL Lymph # (Auto) 0.60 L (1.2-3.4) K/uL [place] # (Auto) 0.41 (0.11-0.59) K/uL Eos # (Auto) 0.94 H (0-0.5) K/uL Baso # (Auto) 0.01 (0-0.2) K/uL Immature Gran # (Auto) 0.04 H (0.00-0.02) K/uL Sodium 134 L (136-145) mmol/L Potassium 4.8 (3.5-5.1) mmol/L Chloride 102 (98-107) mmol/L Carbon Dioxide 24 (21-32) mmol/L Anion Gap 8.0 (3-11) BUN 19 H (7-18) mg/dl Creatinine 1.86 H (0.6-1.2) mg/dl Est Cr Clr Drug Dosing 29.7 ml/min Est GFR ( Amer) 29.9 ml/min Est GFR (Non-Af Amer) 25.8 ml/min BUN/Creatinine Ratio 10.3 (10-20) Glucose 198 H (70-99) mg/dl Lactate (0.4-2.0) mmol/L Calcium 8.9 (8.5-10.1) mg/dl Total Bilirubin 0.8 (0.2-1) mg/dl AST 9 L (15-37) U/L ALT 16 (12-78) U/L Alkaline Phosphatase 102 (45-117) U/L Troponin I < 0.015 (0-0.045) ng/ml Total Protein 6.6 (6.4-8.2) gm/dl Albumin 3.0 L (3.4-5.0) gm/dl Globulin 3.6 (2.5-4.0) gm/dl Albumin/Globulin Ratio 0.8 L (0.9-2) Lipase 90 (73-393) U/L Urine Color Urine Appearance (Clear) Urine pH (4.5-7.5) Ur Specific [place] (1.000-1.030) Urine Protein (Negative) Urine Glucose (UA) (Negative) Urine Ketones (Negative) Urine Blood (Negative) Urine Nitrite (Negative) Urine Bilirubin (Negative) Urine Urobilinogen (Negative) Ur Leukocyte Esterase (Negative) COVID-19 Eval Order Covid19 at [facility] SARS-CoV-2 (PCR) (Negative) 02/27/21 02/27/21 02/27/21 Range/Units 12:07 13:55 Unknown WBC (4.8-10.8) K/uL RBC (4.2-5.4) M/uL Hgb (12.0-16.0) g/dL Hct (37-47) % MCV (80-100) fL MCH (25-34) pg MCHC (32-36) g/dL RDW Std Deviation (36.4-46.3) fL RDW Coeff of Maye (11.5-14.5) % Plt Count (130-400) K/uL MPV (7.4-10.4) fL Immature Gran % (Auto) % Neut % (Auto) % Lymph % (Auto) % [place] % (Auto) % Eos % (Auto) % Baso % (Auto) % Neut # (Auto) (1.4-6.5) K/uL Lymph # (Auto) (1.2-3.4) K/uL [place] # (Auto) (0.11-0.59) K/uL Eos # (Auto) (0-0.5) K/uL Baso # (Auto) (0-0.2) K/uL Immature Gran # (Auto) (0.00-0.02) K/uL Sodium (136-145) mmol/L Potassium (3.5-5.1) mmol/L Chloride (98-107) mmol/L Carbon Dioxide (21-32) mmol/L Anion Gap (3-11) BUN (7-18) mg/dl Creatinine (0.6-1.2) mg/dl Est Cr Clr Drug Dosing ml/min Est GFR ( Amer) ml/min Est GFR (Non-Af Amer) ml/min BUN/Creatinine Ratio (10-20) Glucose (70-99) mg/dl Lactate 1.2 (0.4-2.0) mmol/L Calcium (8.5-10.1) mg/dl Total Bilirubin (0.2-1) mg/dl AST (15-37) U/L ALT (12-78) U/L Alkaline Phosphatase (45-117) U/L Troponin I (0-0.045) ng/ml Total Protein (6.4-8.2) gm/dl Albumin (3.4-5.0) gm/dl Globulin (2.5-4.0) gm/dl Albumin/Globulin Ratio (0.9-2) Lipase (73-393) U/L Urine Color Yellow Urine Appearance Clear (Clear) Urine pH 7.0 (4.5-7.5) Ur Specific [place] 1.013 (1.000-1.030) Urine Protein Negative (Negative) Urine Glucose (UA) Negative (Negative) Urine Ketones Negative (Negative) Urine Blood Negative (Negative) Urine Nitrite Negative (Negative) Urine Bilirubin Negative (Negative) Urine Urobilinogen Negative (Negative) Ur Leukocyte Esterase Negative (Negative) COVID-19 Eval Order SARS-CoV-2 (PCR) NEGATIVE (Negative) Administered Medications Discontinued Medications Acetaminophen (Acetaminophen 1000 Mg/100 Ml Iv) 1,000 mg IV NOW STA Stop: 02/27/21 12:37 Last Admin: 02/27/21 14:01 Dose: 1,000 mg Documented by: [id number] Hydrocortisone Sodium Succinate (Hydrocortisone Sod Succinate 100 Mg/2 Ml Vial) 50 mg IV NOW STA Stop: 02/27/21 15:35 Last Admin: 02/27/21 15:44 Dose: 50 mg Documented by: [id number] Sodium Chloride (Nss) 500 mls @ 999 mls/hr IV .Q31M STA Stop: 02/27/21 13:06 Last Infusion: 02/27/21 14:33 Dose: 0 mls/hr Documented by: [id number] Admin: 02/27/21 14:03 Dose: 999 mls/hr Documented by: [id number] Cefepime HCl (Maxipime) 2,000 mg in 20 mls @ 5 mls/min IV NOW STA; Protocol Stop: 02/27/21 14:33 Last Admin: 02/27/21 15:27 Dose: 5 mls/min Documented by: [id number] Sodium Chloride (Nss 1000ml) 500 mls @ 999 mls/hr IV .Q31M ONE Stop: 02/27/21 15:28 Last Infusion: 02/27/21 16:11 Dose: 0 mls/hr Documented by: [id number] Admin: 02/27/21 15:33 Dose: 999 mls/hr Documented by: [id number] Ketorolac Tromethamine (Ketorolac Tromethamine 15 Mg/Ml Vial) 10 mg IV NOW ONE Stop: 02/27/21 14:18 Last Admin: 02/27/21 15:26 Dose: 10 mg Documented by: [id number] Ondansetron HCl (Ondansetron Inj 2 Mg/Ml 2 Ml Vial) 4 mg IV NOW STA Stop: 02/27/21 12:37 Last Admin: 02/27/21 14:02 Dose: 4 mg Documented by: [id number] Imaging Data Radiologist's Impression: Abdomen/Pelvis CT 02/27/21 12:36 CT SCAN OF THE ABDOMEN AND PELVIS WITHOUT IV CONTRAST CLINICAL HISTORY: Generalized abdominal pain. Nausea and vomiting. COMPARISON STUDY: Abdominal CT dated 02/09/2021. TECHNIQUE: CT scan of the abdomen and pelvis is performed from the lung bases to the proximal femora. Images are reviewed in the axial, sagittal, and coronal planes. IV contrast was not administered for this examination. A dose lowering technique was utilized adhering to the principles of ALARA. CT DOSE: 697.70 mGy.cm FINDINGS: Lung bases: The heart is normal in size and without pericardial effusion. The coronary arteries are densely calcified. The lung bases are clear noting bibasilar scarring/atelectasis. Liver: The unenhanced liver is normal in size, contour, and attenuation. There is no intrahepatic biliary ductal dilatation. Gallbladder: Surgically absent noting clips in the gallbladder fossa. Spleen: Normal in size and attenuation. Pancreas: The unenhanced pancreas is moderately atrophic and grossly unremarkable. Adrenal glands: A 2.1 cm left adrenal adenoma is unchanged. The right adrenal gland is normal in appearance. Kidneys: The unenhanced kidneys are normal in size and without hydronephrosis. There are 2 nonobstructing right renal calculi which measure up to 3 mm. No left renal calculi are seen. A 1.9 cm hyperdense cyst is again seen in the right lower pole. Small renal cysts measure up to 13 mm. Additional subcentimeter cortical hypodensities also likely represent cysts but are too small for definitive characterization. There is asymmetric left-sided perinephric stranding is compared to left. Abdominal vasculature: There is advanced atherosclerotic calcification as well as ectasia of the abdominal aorta. Bowel: There is moderate colonic diverticulosis without CT evidence of acute diverticulitis. No bowel obstruction is seen. The appendix is not identified and reported surgically absent. Peritoneum: There is no intraperitoneal free air or abdominal ascites. Lymphadenopathy: None. Pelvic viscera: The bladder is normal as visualized. The uterus is surgically absent. No adnexal lesion is seen. There is a small fat-containing right inguinal hernia. Skeletal structures: The skeletal structures are osteopenic. There is an acute superior endplate compression fracture of L3 with [id number] loss of height. There is mild paravertebral edema and minimally retropulsed fragments. No additional fracture is identified. No lytic or blastic lesions are seen. There are healed left-sided rib fractures. IMPRESSION: 1. There is an acute superior endplate compression fracture of L3 with [id number] loss of height. See above. 2. There is asymmetric left-sided perinephric stranding is compared to the left. This is of indeterminant etiology and significance. There is no obstructing left ureteral stone or hydronephrosis. Correlate with clinical findings and urinalysis. 3. There are tiny nonobstructing right renal calculi. 4. Moderate colonic diverticulosis without CT evidence of acute diverticulitis. 5. Additional findings as above. ACT 112: Negative or not required by law. Electronically signed by: Jaxon Felipe M.D. 02/27/2021 2:07 PM Chest X-Ray 02/27/21 12:38 XR chest 1V portable HISTORY: Generalized abdominal pain. COMPARISON: Chest 02/21/2021. FINDINGS: No pneumothorax or no pleural effusions. The heart remains borderline enlarged. There is mild interstitial thickening which is likely chronic. No evidence for pulmonary edema. There is a mildly tortuous thoracic aorta. Mild emphysema. The linear scarlike density noted within the right lung base. IMPRESSION: No significant change compared to the prior study. No acute process. ACT 112: Negative or not required by law. Electronically signed by: Ananda Segovia M.D. 02/27/2021 1:07 PM Discharge Plan Visit Data Chief Complaint: Vomiting Stated Complaint: Vomiting/back pain ED Provider: Jaxon Evans Discharge Problem: Diffuse abdominal pain, Vomiting, Fever, CRF (chronic renal failure) Patient Disposition: Admitted As Inpatient Condition: Fair Forms Stand Alone Forms: [facility] Prescriptions Prescriptions: No Action sertraline [Zoloft] 100 mg tablet 100 mg PO QAM RF: 0 theophylline 300 mg tablet extended release 12 hr 300 mg PO BID RF: 0 folic acid 1 mg tablet 1 mg PO QAM RF: 0 Combivent Respimat 20-100 mcg/actuation Mist 1 puff INHALATION Q4H PRN (Reason: Shortness Of Breath Or Wheezing) RF: 0 furosemide [Lasix] 20 mg tablet 20 mg PO DAILY PRN (Reason: Swelling) RF: 0 esomeprazole magnesium [Nexium] 20 mg capsule,delayed release(DR/EC) 20 mg PO HS RF: 0 levothyroxine [Synthroid] 112 mcg tablet 112 mcg PO DAILYBB RF: 0 cefdinir 300 mg capsule 300 mg PO BID 5 Days Qty: 10 RF: 0 albuterol sulfate 2.5 mg /3 mL (0.083 %) solution for nebulization 2.5 mg continuous nebulization Q4 PRN (Reason: cough,sob) RF: 0 icosapent ethyl [Vascepa] 1 gram capsule 2 g PO BIDM RF: 0 carvedilol [Coreg] 6.25 mg tablet 6.25 mg PO BID RF: 0 Januvia 50 mg tablet 50 mg PO QAM RF: 0 budesonide [Entocort EC] 3 mg capsule,delayed,extend.release 9 mg PO QAM RF: 0 Referrals Referrals: Arthur Cruz [Primary Care Provider] -
[2021-02-27 12:49] LABS: Basophils # (auto) 0.01 K/uL (0-0.2); Basophils % (auto) 0.1 %; Eosinophils # (auto) 0.94 K/uL (0-0.5); Eosinophils % (auto) 11.6 %; Hematocrit (blood only) 37.3 % (37-47); Hemoglobin 12.2 g/dL (12.0-16.0); Immature Granulocytes # (auto) 0.04 K/uL (0.00-0.02); Immature Granulocytes % (auto) 0.5 %; Lymphocytes % (auto) 7.4 %; Mean Corpuscular Hemoglobin 28.6 pg (25-34); Mean Corpuscular Hgb Conc 32.7 g/dL (32-36); Mean Corpuscular Volume 87.6 fL (80-100); Mean Platelet Volume 10.3 fL (7.4-10.4); Monocytes # (auto) 0.41 K/uL (0.11-0.59); Neutrophils # (auto) 6.13 K/uL (1.4-6.5); Neutrophils % (auto) 75.4 %; Platelet Count 236 K/uL (130-400); RDW Coefficient of Variation 16.5 % (11.5-14.5); RDW Standard Deviation 53.2 fL (36.4-46.3); Red Blood Count 4.26 M/uL (4.2-5.4); White Blood Count 8.13 K/uL (4.8-10.8)
--- NOTE | 2021-02-27 13:09 | XRay Report ---
XR chest 1V portable HISTORY: Generalized abdominal pain. COMPARISON: Chest 02/21/2021. FINDINGS: No pneumothorax or no pleural effusions. The heart remains borderline enlarged. There is mi ld interstitial thickening which is likely chronic. No evidence for pulmonary edema. There is a mildl y tortuous thoracic aorta. Mild emphysema. The linear scarlike density noted within the right lung ba se. IMPRESSION: No significant change compared to the prior study. No acute process. ACT 112: Negative or not required by law. Electronically signed by: Ananda Segovia M.D. 02/27/2021 1:07 PM
[2021-02-27 13:54] LABS: Alanine Aminotransferase 16 U/L (12-78); Albumin Globulin Ratio 0.8 (0.9-2); Alkaline Phosphatase 102 U/L (45-117); Aspartate Aminotransferase 9 U/L (15-37); BUN Creatinine Ratio 10.3 (10-20); Bilirubin,Total 0.8 mg/dl (0.2-1); Blood Urea Nitrogen 19 mg/dl (7-18); Calcium 8.9 mg/dl (8.5-10.1); Carbon Dioxide 24 mmol/L (21-32); Chloride 102 mmol/L (98-107); Creatinine Clr Calc Pharmacy 29.7 ml/min; Est GFR (African American) 29.9 ml/min; Est GFR (Non-African American) 25.8 ml/min; Globulin 3.6 gm/dl (2.5-4.0); Glucose 198 mg/dl (70-99); Lipase 90 U/L (73-393); Potassium 4.8 mmol/L (3.5-5.1); Sodium 134 mmol/L (136-145); Total Protein 6.6 gm/dl (6.4-8.2); Troponin I < 0.015 ng/ml (0-0.045)
--- NOTE | 2021-02-27 14:09 | CT Scan Report ---
CT SCAN OF THE ABDOMEN AND PELVIS WITHOUT IV CONTRAST CLINICAL HISTORY: Generalized abdominal pain. Nausea and vomiting. COMPARISON STUDY: Abdominal CT dated 02/09/2021. TECHNIQUE: CT scan of the abdomen and pelvis is performed from the lung bases to the proximal femora. Images are reviewed in the axial, sagittal, and coronal planes. IV contrast was not administered for this examination. A dose lowering technique was utilized adhering to the principles of ALARA. CT DOSE: 697.70 mGy.cm FINDINGS: Lung bases: The heart is normal in size and without pericardial effusion. The coronary arteries are d ensely calcified. The lung bases are clear noting bibasilar scarring/atelectasis. Liver: The unenhanced liver is normal in size, contour, and attenuation. There is no intrahepatic monroe iary ductal dilatation. Gallbladder: Surgically absent noting clips in the gallbladder fossa. Spleen: Normal in size and attenuation. Pancreas: The unenhanced pancreas is moderately atrophic and grossly unremarkable. Adrenal glands: A 2.1 cm left adrenal adenoma is unchanged. The right adrenal gland is normal in appe arance. Kidneys: The unenhanced kidneys are normal in size and without hydronephrosis. There are 2 nonobstruc ting right renal calculi which measure up to 3 mm. No left renal calculi are seen. A 1.9 cm hyperdens e cyst is again seen in the right lower pole. Small renal cysts measure up to 13 mm. Additional subce ntimeter cortical hypodensities also likely represent cysts but are too small for definitive characte rization. There is asymmetric left-sided perinephric stranding is compared to left. Abdominal vasculature: There is advanced atherosclerotic calcification as well as ectasia of the abdo shelbie aorta. Bowel: There is moderate colonic diverticulosis without CT evidence of acute diverticulitis. No bowel obstruction is seen. The appendix is not identified and reported surgically absent. Peritoneum: There is no intraperitoneal free air or abdominal ascites. Lymphadenopathy: None. Pelvic viscera: The bladder is normal as visualized. The uterus is surgically absent. No adnexal lesi on is seen. There is a small fat-containing right inguinal hernia. Skeletal structures: The skeletal structures are osteopenic. There is an acute superior endplate comp ression fracture of L3 with [id number] loss of height. There is mild paravertebral edema and mi nimally retropulsed fragments. No additional fracture is identified. No lytic or blastic lesions are seen. There are healed left-sided rib fractures. IMPRESSION: 1. There is an acute superior endplate compression fracture of L3 with [id number] loss of heigh t. See above. 2. There is asymmetric left-sided perinephric stranding is compared to the left. This is of indetermi nant etiology and significance. There is no obstructing left ureteral stone or hydronephrosis. Correl ate with clinical findings and urinalysis. 3. There are tiny nonobstructing right renal calculi. 4. Moderate colonic diverticulosis without CT evidence of acute diverticulitis. 5. Additional findings as above. ACT 112: Negative or not required by law. Electronically signed by: Jaxon Felipe M.D. 02/27/2021 2:07 PM
[2021-02-27] MEDS ORDERED: KETOROLAC TROMETHAMINE 15 MG/ML VIAL IV ONE (14:17)
[2021-02-27] MEDS ORDERED: CEFEPIME 2,000 MG/20 ML VIAL IV STA (14:30)
[2021-02-27] MEDS ORDERED: SODIUM CHLORIDE 0.9% 1000ML 500 ML IV ONE (14:58)
[2021-02-27 15:03] LABS: Appearance Urine Clear (Clear); Bilirubin Urine Negative (Negative); Blood Urine Negative (Negative); Color Urine Yellow; Glucose Urine UA Negative (Negative); Ketones Urine Negative (Negative); Leukocyte Esterase Urine Negative (Negative); Nitrite Urine Negative (Negative); Protein Urine Negative (Negative); Specific Gravity Urine 1.013 (1.000-1.030); Urobilinogen Urine Negative (Negative)
[2021-02-27] MEDS ORDERED: HYDROCORTISONE SOD SUCCINATE 100 MG/2 ML VIAL IV STA (15:34)
--- NOTE | 2021-02-27 15:44 | History & Physical Report ---
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 follows with Dr Kingston. felt to be due to Keytruda chemotherapy for her lung cancer. keytruda has since then been stopped. typically on hydrocortisone 20mg am, 10mg pm. holding this, and using stress-dose steroids. (5) Chronic renal failure, stage 3 (moderate): Plan: Cr baseline about 1.4 to 1.8, most recently during prior stay the Cr was 1.3/1.4. BMP am (6) Hypothyroidism: Plan: Resume previous Synthroid dose (7) Hypertension: Plan: Holding Coreg Holding Lasix Holding antihypertensives until volume repleted (8) Diabetes: Plan: a1c in December was 7.7%. hold oral agents. place on novolog sliding scale as needed. DM diet. History of Present Illness Chief Complaint: Vomiting Primary Care Provider: Arthur Cruz Patient is a 75-year-old female with a history of lung cancer followed by Dr. 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 She is in her normal state of health until this morning when she had some diffuse abdominal pain and then started vomiting which she was unable to keep fluids down after trying Zofran. She also had mild back pain and there is a known recently diagnosed compression fracture of L1. She denies urgency hesitancy frequency of urinary s ymptoms, the abdominal pain has resolved. The nausea has resolved. She does feel like she has mild exertional dyspnea. Allergies Allergy/AdvReac Type Severity Reaction Status Date / Time adhesive Allergy Unknown PULLS SKIN Verified 02/27/21 14:07 OFF Penicillins Allergy Unknown TONGUE Verified 02/27/21 14:07 SWELLING azithromycin AdvReac Unknown Nausea Verified 02/27/21 14:07 Home Medications Medication Instructions Recorded Confirmed Type folic acid 1 mg tablet 1 mg PO QAM 07/17/18 02/27/21 History ipratropium 20 mcg-albuterol 100 1 puff INHALATION Q4H PRN 07/17/18 02/27/21 History mcg/actuation mist for inhalation (Combivent Respimat) sertraline 100 mg tablet (Zoloft) 100 mg PO QAM 07/17/18 02/27/21 History theophylline 300 mg 300 mg PO BID 07/17/18 02/27/21 History tablet,extended release,12 hr esomeprazole magnesium 20 mg 20 mg PO HS 06/28/20 02/27/21 History capsule,delayed release (Nexium) furosemide 20 mg tablet (Lasix) 20 mg PO DAILY PRN 06/28/20 02/27/21 History albuterol sulfate 2.5 mg CONTINUOUS NEBULIZATION Q4 01/15/21 02/27/21 History PRN icosapent ethyl 1 gram capsule 2 g PO BIDM 01/15/21 02/27/21 History (Vascepa) levothyroxine 112 mcg tablet 112 mcg PO DAILYBB 02/09/21 02/27/21 History (Synthroid) cefdinir 300 mg capsule 300 mg PO BID 5 Days #10 cap 02/25/21 02/27/21 Rx budesonide 3 mg 9 mg PO QAM 02/27/21 02/27/21 History capsule,delayed,extended release (Entocort EC) carvedilol 6.25 mg tablet (Coreg) 6.25 mg PO BID 02/27/21 02/27/21 History sitagliptin 50 mg tablet (Januvia) 50 mg PO QAM 02/27/21 02/27/21 History Past Med/Surg History Medical History Abdominal pain ACTH deficiency Acute kidney injury superimposed on chronic kidney disease Adrenal adenoma Arthritis Chronic renal failure, stage 3 (moderate) COPD (chronic obstructive pulmonary disease) COVID-19 05/2020 Depression Diabetes Hypoxia Lung cancer 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 Neutropenic fever Orthostatic hypotension Right knee DJD Secondary adrenal insufficiency Surgical History Hx of right knee surgery Family History Mother Heart disease Father , in his 90s - old age COPD (chronic obstructive pulmonary disease) Other Diabetes Hypertension Lung disease Social History Smoking Status: Former smoker Tobacco Type: Cigarettes Age Started Using Tobacco: 19; Age Quit Using Tobacco: 75; packs per day: 0.5; Second Hand Exposure: No; Hx Alcohol Use: No Hx Substance Use: No Preferred Language: Hungarian Communication Ability: Effective Light Equipment Operator Required: No Beliefs That Will Affect Care: None marital status: / Current Living Situation: Family Current Living Situation Comment: grand daughter stays with PT current occupational status: retired How many Children do You have: 4 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 Physical Exam Physical Exam: General: Alert. nontoxic. Skin: Warm, dry, Head: Atraumatic Ears, nose, mouth and throat: airway patent Cardiovascular: Normal peripheral perfusion, S1-S2 regular rate and rhythm no murmurs rubs gallops Respiratory: no respiratory distress, clear to auscultation bilaterally Gastrointestinal: Non distended, no guarding no rebound no abdominal tenderness this is a nonsurgical abdomen Musculoskeletal: No deformity Results & Data Results & Data ([facility]) Vital Signs (Past 12 Hours) Vital Signs Temp Pulse Resp BP Pulse Ox 02/27/21 14:50 37.7 C H 02/27/21 14:30 96 H 24 98/52 L 91 02/27/21 14:04 39.1 C H 02/27/21 14:00 95 H 24 143/73 H 91 02/27/21 13:30 93 H 22 129/72 94 02/27/21 13:00 103 H 22 112/91 94 02/27/21 12:37 93 02/27/21 12:30 97 H 24 158/80 H 90 02/27/21 12:00 91 H 24 139/74 92 02/27/21 11:39 104 H 20 116/72 92 02/27/21 11:21 37.9 C H 100 H 15 116/72 93 Laboratory Results 02/27/21 02/27/21 02/27/21 Range/Units Unknown 13:55 12:07 WBC (4.8-10.8) K/uL RBC (4.2-5.4) M/uL Hgb (12.0-16.0) g/dL Hct (37-47) % MCV (80-100) fL MCH (25-34) pg MCHC (32-36) g/dL RDW Std Deviation (36.4-46.3) fL RDW Coeff of Maye (11.5-14.5) % Plt Count (130-400) K/uL MPV (7.4-10.4) fL Immature Gran % (Auto) % Neut % (Auto) % Lymph % (Auto) % Montgomery % (Auto) % Eos % (Auto) % Baso % (Auto) % Neut # (Auto) (1.4-6.5) K/uL Lymph # (Auto) (1.2-3.4) K/uL Montgomery # (Auto) (0.11-0.59) K/uL Eos # (Auto) (0-0.5) K/uL Baso # (Auto) (0-0.2) K/uL Immature Gran # (Auto) (0.00-0.02) K/uL Sodium (136-145) mmol/L Potassium (3.5-5.1) mmol/L Chloride (98-107) mmol/L Carbon Dioxide (21-32) mmol/L Anion Gap (3-11) BUN (7-18) mg/dl Creatinine (0.6-1.2) mg/dl Est Cr Clr Drug Dosing ml/min Est GFR ( Amer) ml/min Est GFR (Non-Af Amer) ml/min BUN/Creatinine Ratio (10-20) Glucose (70-99) mg/dl Lactate 1.2 (0.4-2.0) mmol/L Calcium (8.5-10.1) mg/dl Total Bilirubin (0.2-1) mg/dl AST (15-37) U/L ALT (12-78) U/L Alkaline Phosphatase (45-117) U/L Troponin I (0-0.045) ng/ml Total Protein (6.4-8.2) gm/dl Albumin (3.4-5.0) gm/dl Globulin (2.5-4.0) gm/dl Albumin/Globulin Ratio (0.9-2) Lipase (73-393) U/L Urine Color Yellow Urine Appearance Clear (Clear) Urine pH 7.0 (4.5-7.5) Ur Specific Lejunior 1.013 (1.000-1.030) Urine Protein Negative (Negative) Urine Glucose (UA) Negative (Negative) Urine Ketones Negative (Negative) Urine Blood Negative (Negative) Urine Nitrite Negative (Negative) Urine Bilirubin Negative (Negative) Urine Urobilinogen Negative (Negative) Ur Leukocyte Esterase Negative (Negative) COVID-19 Eval Order SARS-CoV-2 (PCR) NEGATIVE (Negative) 02/27/21 02/27/21 02/27/21 Range/Units 12:07 11:52 11:52 WBC 8.13 (4.8-10.8) K/uL RBC 4.26 (4.2-5.4) M/uL Hgb 12.2 (12.0-16.0) g/dL Hct 37.3 (37-47) % MCV 87.6 (80-100) fL MCH 28.6 (25-34) pg MCHC 32.7 (32-36) g/dL RDW Std Deviation 53.2 H (36.4-46.3) fL RDW Coeff of Maye 16.5 H (11.5-14.5) % Plt Count 236 (130-400) K/uL MPV 10.3 (7.4-10.4) fL Immature Gran % (Auto) 0.5 % Neut % (Auto) 75.4 % Lymph % (Auto) 7.4 % Montgomery % (Auto) 5.0 % Eos % (Auto) 11.6 % Baso % (Auto) 0.1 % Neut # (Auto) 6.13 (1.4-6.5) K/uL Lymph # (Auto) 0.60 L (1.2-3.4) K/uL Montgomery # (Auto) 0.41 (0.11-0.59) K/uL Eos # (Auto) 0.94 H (0-0.5) K/uL Baso # (Auto) 0.01 (0-0.2) K/uL Immature Gran # (Auto) 0.04 H (0.00-0.02) K/uL Sodium 134 L (136-145) mmol/L Potassium 4.8 (3.5-5.1) mmol/L Chloride 102 (98-107) mmol/L Carbon Dioxide 24 (21-32) mmol/L Anion Gap 8.0 (3-11) BUN 19 H (7-18) mg/dl Creatinine 1.86 H (0.6-1.2) mg/dl Est Cr Clr Drug Dosing 29.7 ml/min Est GFR ( Amer) 29.9 ml/min Est GFR (Non-Af Amer) 25.8 ml/min BUN/Creatinine Ratio 10.3 (10-20) Glucose 198 H (70-99) mg/dl Lactate (0.4-2.0) mmol/L Calcium 8.9 (8.5-10.1) mg/dl Total Bilirubin 0.8 (0.2-1) mg/dl AST 9 L (15-37) U/L ALT 16 (12-78) U/L Alkaline Phosphatase 102 (45-117) U/L Troponin I < 0.015 (0-0.045) ng/ml Total Protein 6.6 (6.4-8.2) gm/dl Albumin 3.0 L (3.4-5.0) gm/dl Globulin 3.6 (2.5-4.0) gm/dl Albumin/Globulin Ratio 0.8 L (0.9-2) Lipase 90 (73-393) U/L Urine Color Urine Appearance (Clear) Urine pH (4.5-7.5) Ur Specific Lejunior (1.000-1.030) Urine Protein (Negative) Urine Glucose (UA) (Negative) Urine Ketones (Negative) Urine Blood (Negative) Urine Nitrite (Negative) Urine Bilirubin (Negative) Urine Urobilinogen (Negative) Ur Leukocyte Esterase (Negative) COVID-19 Eval Order Covid19 at [facility] SARS-CoV-2 (PCR) (Negative) Medications Administered Medication List Discontinued Medications Acetaminophen (Acetaminophen 1000 Mg/100 Ml Iv) 1,000 mg IV NOW STA Stop: 02/27/21 12:37 Last Admin: 02/27/21 14:01 Dose: 1,000 mg Documented by: [id number] Sodium Chloride (Nss) 500 mls @ 999 mls/hr IV .Q31M STA Stop: 02/27/21 13:06 Last Infusion: 02/27/21 14:33 Dose: 0 mls/hr Documented by: [id number] Admin: 02/27/21 14:03 Dose: 999 mls/hr Documented by: [id number] Cefepime HCl (Maxipime) 2,000 mg in 20 mls @ 5 mls/min IV NOW STA; Protocol Stop: 02/27/21 14:33 Last Admin: 02/27/21 15:27 Dose: 5 mls/min Documented by: [id number] Sodium Chloride (Nss 1000ml) 500 mls @ 999 mls/hr IV .Q31M ONE Stop: 02/27/21 15:28 Last Admin: 02/27/21 15:33 Dose: 999 mls/hr Documented by: [id number] Ketorolac Tromethamine (Ketorolac Tromethamine 15 Mg/Ml Vial) 10 mg IV NOW ONE Stop: 02/27/21 14:18 Last Admin: 02/27/21 15:26 Dose: 10 mg Documented by: [id number] Ondansetron HCl (Ondansetron Inj 2 Mg/Ml 2 Ml Vial) 4 mg IV NOW STA Stop: 02/27/21 12:37 Last Admin: 02/27/21 14:02 Dose: 4 mg Documented by: [id number] PG Care Time/CCT Total # of Minutes Spent Total Time Spent with Patient: Total time spent is greater than 50% in coordination of care (as documented) at patient's floor/unit and/or counseling patient: Coding Level of Care Code INT OBSERVATION CARE 70M LVL 3 Diagnoses Febrile illness, acute R50.9 Vomiting R11.10 Back pain M54.9 ACTH deficiency E23.6 Chronic renal failure, stage 3 (moderate) N18.30 Chronic kidney disease stage 3 subtype: unspecified whether 3a or 3b Hypothyroidism E03.9 Hypertension I10 Diabetes E11.9 (1) Chronic renal failure, stage 3 (moderate) Chronic kidney disease stage 3 subtype: unspecified whether 3a or 3b Qualifie d Code(s): N18.30 - Chronic kidney disease, stage 3 unspecified
[2021-02-27] MEDS ORDERED: ONDANSETRON INJ 2 MG/ML 2 ML VIAL IV PRN (16:02)
--- NOTE | 2021-02-27 17:44 | Electrocardiogram Report ---
Test Reason : Blood Pressure : / mmHG Vent. Rate : 102 BPM Atrial Rate : 102 BPM P-R Int : 120 ms QRS Dur : 086 ms QT Int : 356 ms P-R-T Axes : 026 -01 083 degrees QTc Int : 463 ms Sinus tachycardia Nonspecific ST and T wave abnormality Abnormal ECG When compared with ECG of 21-FEB-2021 16:46, Nonspecific T wave abnormality no longer evident in Anterior leads Confirmed by Willie Freitas ([id number]) on 02/27/2021 5:43:35 PM Referred By: REFERRED SELF Confirmed By:Anthony Freitas
[2021-02-27] MEDS ORDERED: DEXTROSE 50% 50 ML SYRINGE IV PRN (20:31)
[2021-02-27] MEDS ORDERED: CEFEPIME CONSULT ACTIVE PRN (20:31)
[2021-02-27] MEDS ORDERED: ALBUTEROL 0.083% NEBU SOLN 3 ML VIAL INH PRN (20:31)
[2021-02-27] MEDS ORDERED: GLUCOSE 40% GEL 15 GM TUBE PO PRN (20:31)
[2021-02-27] MEDS ORDERED: GLUCOSE 10 TABS/TUBE PO PRN (20:31)
[2021-02-27] MEDS ORDERED: IPRATROPIUM BROMIDE/ALBUTEROL respimat INH INH PRN (20:31)
[2021-02-27] MEDS ORDERED: GLUCAGON FOR INJ 1 MG VIAL SQ PRN (20:31)
[2021-02-27] MEDS ORDERED: CARBOHYDRATES FOR HYPOGLYCEMIA PO PRN (20:31)
[2021-02-27] MEDS ORDERED: Albuterol HFA 8 GM Inhaler (Combivent Respimat P&T Subs) INH PRN (20:45)
[2021-02-27] MEDS ORDERED: Ipratropium HFA Inhaler (Combivent Respimat P&T Subs) INH PRN (20:46)
[2021-02-27] MEDS: PANTOprazole 40 MG TAB PO SCH (21:28)
[2021-02-27] MEDS: THEOPHYLLINE 300MG EXTENDED REL TAB PO SCH (21:28)
[2021-02-27] MEDS: INSULIN ASPART 100 UNITS/ML 3 ML PEN SC SCH (21:31)
[2021-02-27] MEDS ORDERED: HYDROCORTISONE SOD SUCCINATE 100 MG/2 ML VIAL IV SCH (22:00)
[2021-02-27] MEDS: HYDROCORTISONE SOD 50 MG in SYRINGE 0 ML IV SCH (22:46)
[2021-02-28] MEDS: HYDROCORTISONE SOD 50 MG in SYRINGE 0 ML IV SCH ×3 (05:45→21:54)
[2021-02-28] MEDS: LEVOTHYROXINE SODIUM 112 MCG TABLET PO SCH (05:45)
[2021-02-28] MEDS: INSULIN ASPART 100 UNITS/ML 3 ML PEN SC SCH ×4 (08:14→20:59)
[2021-02-28] MEDS: BUDESONIDE EC 3 MG CAP PO SCH (08:15)
[2021-02-28] MEDS: THEOPHYLLINE 300MG EXTENDED REL TAB PO SCH ×2 (08:15→21:03)
[2021-02-28] MEDS: SERTRALINE HCL 100 MG TABLET PO SCH (08:15)
[2021-02-28] MEDS: FOLIC ACID 1 MG TAB PO SCH (08:15)
[2021-02-28] MEDS: FAMOTIDINE 20 MG in SYRINGE 3 ML IV SCH ×2 (10:45→21:01)
[2021-02-28] MEDS ORDERED: CEFEPIME 1,000 MG in SYRINGE 0 ML IV SCH (16:00)
[2021-02-28] MEDS ORDERED: SODIUM CHLORIDE 0.9% 1000ML 500 ML IV ONE (18:44)
--- NOTE | 2021-02-28 18:45 | Hospitalist Progress Note ---
Date of Service February 28, 2021 Assessment & Plan (1) Gastritis: Plan: Kasie is a 75-year-old female who presented to the hospital with 1 morning of nausea and vomiting which resolved following admission to the hospital. Nausea/vomiting 2/2 gastritis, ddx includes UTI Patient with no unusual food exposures prior to episode Blood cultures no growth to date CTA/P: Some concerning for perinephric inflammation without obvious infection. Patient without dysuria, UC shows E. coli greater than 100,000 CFU, pansensitive with treatment as below Covid negative Famotidine twice daily Zofran as needed Follow clinically, CBC/BMP in the morning (2) Urinary tract infection: Plan: CTA/P: Some concerning for perinephric inflammation without obvious infection. UC shows E. coli greater than 100,000 CFU, pansensitive with treatment as below Patient without symptoms dysuria so could be asymptomatic bacteriuria with nausea/vomiting due to gastritis, however given nausea vomiting and high colony counts will treat as UTI Cefepime narrowed to Keflex 500mg 4 times daily, may decrease to 3 times daily discharge Patient with penicillin allergy, tolerated cephalosporins without reaction during this admission. Do not recommend Macrobid/Bactrim given underlying renal disease. (3) ACTH deficiency: Plan: Follows with rheumatology ACTH deficiency and secondary adrenal insufficiency thought to be due to Keytruda chemotherapy Patient placed on stress dose steroids 50 mg every 8 in ER, patient clinically improved on exam today. Continue current dosing overnight then resume home dosing hydrocortisone 20 mg a.m., 10 mg p.m. clinically well and normotensive. (4) Pancytopenia: Plan: Patient with history of chemotherapy (5) Hypothyroidism: Plan: Continue home Synthroid (6) Hypertension: Plan: Home carvedilol, Lasix held pending volume repletion, patient mildly hypotensive on recheck today Plan as noted in gastritis, resume antihypertensives once BP normalized and patient taking oral nutrition adequately (7) Depression: Plan: Continue sertraline 100 mg every morning (8) COPD (chronic obstructive pulmonary disease): Plan: Continue ipratropium every 4 hours as needed No wheezing or difficulty breathing on exam (9) Diabetes: Plan: Adequate glycemic control on sliding scale Hold oral antiglycemic's Last A1c 7.7% DM diet as tolerated (10) CRF (chronic renal failure): Plan: Baseline creatinine approximately 1.41.5 Creatinine 1.8 from 1.6, 1X NSS 500 cc given Suspect prerenal 2/2 volume depletion Oral intake improved today may continue oral fluid repletion BMP in the morning Admission and Anticipated Discharge Date Admission Date: February 27, 2021 Kath Ferro is seen at the bedside this morning. Reports that she has had 1 day of nausea/vomiting and inability to keep food down. Reports that she generally has an okay appetite, but is disheartened by her long-term medical problems. She reports that she had fevers and felt chills before coming into the hospital, has not had any today. She reports that she was nauseous and could not keep food down, feels her stomach is a little upset but she is not nauseous at time of assessment. She reports she did have an episode of clear emesis after taking some water this morning. She denies urinary symptoms including dysuria, and denies low abdominal pain. She denies diarrhea/constipation. Review of Systems Review of Systems: Constitutional: Denies fever, chills, malaise Eyes: Denies vision change ENT: Denies ear pain, sore throat, sinus pain Cardiovascular: Denies Chest pain, chest pressure, palpitations, extremity swelling Respiratory: Denies shortness of breath, cough, sputum production, difficulty breathing. Endorses some shortness of breath on exertion, none today Gastrointestinal: See subjective Genitourinary: Denies dysuria, urinary frequency Musculoskeletal: Denies acute focal weakness. Endorses chronic back pain with recent compression fracture of L1 Integumentary:Denies acute rash, lesions, bruising Neurological: Denies headache, acute numbness, tingling Physical Exam Physical Exam: General: A&Ox3. NAD. Cooperative. HEENT: Atraumatic, normocephalic. Visual acuity and hearing grossly intact. Pulm: CTAB A&P. -wheezes, -rales, -rhonchi. Symmetrical chest rise. No increase work of breathing. No respiratory distress. Cardiac: RRR, -mrg. Radial pulses intact and symmetrical. Abdominal: Nontender, nondistended, soft. BS present. Patient of epigastrium does not induce nausea. Results & Data Results & Data ([facility]) Vital Signs (Past 12 Hours) Vital Signs Temp Pulse Pulse Resp BP Pulse Ox 02/28/21 15:24 37.3 C 77 20 97/61 L 95 02/28/21 15:00 75 02/28/21 11:13 37.4 C 71 18 104/60 91 02/28/21 08:01 37.2 C 73 18 121/70 90 02/28/21 08:00 73 PG Care Time/CCT Total # of Minutes Spent Total Time Spent with Patient: Total time spent is greater than 50% in coordination of care (as documented) at patient's floor/unit and/or counseling patient: Coding Level of Care Code 83999 Subseq Hosp Care Lvl 3 Diagnoses Gastritis K29.70 ACTH deficiency E23.6 Pancytopenia D61.818 Hypothyroidism E03.9 Hypertension I10 Depression F32.9 COPD (chronic obstructive pulmonary disease) J44.9 COPD type: unspecified COPD Diabetes E11.9 CRF (chronic renal failure) N18.9 Chronic kidney disease stage: unspecified stage Urinary tract infection N39.0 (1) COPD (chronic obstructive pulmonary disease) COPD type: unspecified COPD Qualified Code(s): J44.9 - Chronic obstructive pulmonary disease, unspecified (2) CRF (chronic renal failure) Chronic kidney disease stage: unspecified stage Qualified Code(s): N18.9 - Chronic kidney disease, unspecified
[2021-02-28] MEDS: cephALEXin 250 MG CAP PO SCH (21:01)
[2021-02-28] MEDS: PANTOprazole 40 MG TAB PO SCH (21:02)
[2021-02-28] MEDS: ACETAMINOPHEN 325 MG TAB PO PRN (21:04)
[2021-03-01] MEDS: LEVOTHYROXINE SODIUM 112 MCG TABLET PO SCH (06:12)
[2021-03-01] MEDS: HYDROCORTISONE SOD 50 MG in SYRINGE 0 ML IV SCH ×2 (06:23→13:45)
[2021-03-01 07:34] LABS: Basophils # (auto) 0.02 K/uL (0-0.2); Basophils % (auto) 0.3 %; Eosinophils # (auto) 0.18 K/uL (0-0.5); Eosinophils % (auto) 2.9 %; Hematocrit (blood only) 31.5 % (37-47); Hemoglobin 10.3 g/dL (12.0-16.0); Immature Granulocytes # (auto) 0.08 K/uL (0.00-0.02); Immature Granulocytes % (auto) 1.3 %; Lymphocytes # (auto) 1.14 K/uL (1.2-3.4); Lymphocytes % (auto) 18.7 %; Mean Corpuscular Hemoglobin 28.4 pg (25-34); Mean Corpuscular Hgb Conc 32.7 g/dL (32-36); Mean Corpuscular Volume 86.8 fL (80-100); Mean Platelet Volume 9.9 fL (7.4-10.4); Monocytes # (auto) 0.57 K/uL (0.11-0.59); Monocytes % (auto) 9.3 %; Neutrophils # (auto) 4.12 K/uL (1.4-6.5); Neutrophils % (auto) 67.5 %; Platelet Count 231 K/uL (130-400); RDW Coefficient of Variation 16.3 % (11.5-14.5); RDW Standard Deviation 51.9 fL (36.4-46.3); Red Blood Count 3.63 M/uL (4.2-5.4); White Blood Count 6.11 K/uL (4.8-10.8)
[2021-03-01 08:07] LABS: Calcium 8.8 mg/dl (8.5-10.1); Creatinine Clr Calc Pharmacy 25.4 ml/min; Est GFR (Non-African American) 21.6 ml/min; Potassium 4.1 mmol/L (3.5-5.1)
[2021-03-01] MEDS: cephALEXin 250 MG CAP PO SCH ×2 (08:27→20:27)
[2021-03-01] MEDS: SERTRALINE HCL 100 MG TABLET PO SCH (08:27)
[2021-03-01] MEDS: FOLIC ACID 1 MG TAB PO SCH (08:27)
[2021-03-01] MEDS: THEOPHYLLINE 300MG EXTENDED REL TAB PO SCH ×2 (08:28→20:27)
[2021-03-01] MEDS: BUDESONIDE EC 3 MG CAP PO SCH (08:28)
[2021-03-01] MEDS: INSULIN ASPART 100 UNITS/ML 3 ML PEN SC SCH ×4 (08:33→20:28)
[2021-03-01] MEDS: FAMOTIDINE 20 MG in SYRINGE 3 ML IV SCH (08:33)
--- NOTE | 2021-03-01 19:47 | Hospitalist Progress Note ---
Date of Service March 01, 2021 Assessment & Plan (1) Gastritis: Plan: Kasie is a 75-year-old female who presented to the hospital with 1 morning of nausea and vomiting which resolved following admission to the hospital. Nausea/vomiting 2/2 gastritis Patient with no unusual food exposures prior to episode Blood cultures no growth to date CTA/P: Some concerning for perinephric inflammation without obvious infection. Patient without dysuria, UC shows E. coli greater than 100,000 CFU, pansensitive with treatment as below. Patient recently with admission to [facility] with treatment for possible pyelonephritis, reports she had not missed any doses of her home antibiotics. Covid negative Famotidine twice daily Zofran as needed Follow clinically, CBC/BMP in the morning Suspect that her symptoms are due to viral gastroenteritis versus gastritis medicamentosa. Reports did not tolerate breakfast well, some nausea limiting meal at lunch, but improvement of the nausea through the late afternoon. Increased creatinine as discussed in CHRISTIAN (2) Urinary tract infection: Plan: CTA/P: Some concerning for perinephric inflammation without obvious infection. UC shows E. coli greater than 100,000 CFU, pansensitive with treatment as below Patient without symptoms dysuria, low suspicion for treatment failure of her prior course Cefepime narrowed to Keflex 500mg 4 times daily based on susceptibilities Patient with penicillin allergy, tolerated cephalosporins without reaction during this admission. (3) ACTH deficiency: Plan: Follows with rheumatology ACTH deficiency and secondary adrenal insufficiency thought to be due to Keytruda chemotherapy Patient placed on stress dose steroids 50 mg every 8 in ER, patient clinically progressing Resumed hydrocortisone 20 mg a.m./10 mg p.m., patient remains normotensive (4) Pancytopenia: Plan: Patient with history of chemotherapy (5) Hypothyroidism: Plan: Continue home Synthroid (6) Hypertension: Plan: Home carvedilol, Lasix held pending volume repletion, patient mildly hypotensive on recheck today Plan as noted in gastritis, resume antihypertensives once BP normalized and patient taking oral nutrition adequately (7) Depression: Plan: Continue sertraline 100 mg every morning (8) COPD (chronic obstructive pulmonary disease): Plan: Continue ipratropium every 4 hours as needed No wheezing or difficulty breathing on exam (9) Diabetes: Plan: Adequate glycemic control on sliding scale Hold oral antiglycemic's Last A1c 7.7% DM diet as tolerated (10) CRF (chronic renal failure): Plan: Baseline creatinine approximately 1.41.5 Renally dose meds (11) CHRISTIAN (acute kidney injury): Plan: ? Prerenal azotemia versus CHRISTIAN Patient with baseline creatinine of approximately 1.4-1.5, increased to 2.16 today Patient improving nausea, p.o. intake but decreased over the course of the morning NSS IVFM gentle supplementation with BMP recheck in the morning Plan: Kasie Rogel is a 75-year-old female who presents with nausea/vomiting following recent discharge for pyelonephritis with cefepime treatment on prior discharge. She reports that she had not missed any doses of her antibiotics and is not having urinary symptoms, do not think that her current symptoms are due to worsening of her prior infection. Based on UA on admission antibiotics were narrowed during admission to Keflex and appears well from an infectious standpoint without leukocytosis. Nausea improving with famotidine and PPI treatment. Patient had increasing creatinine concerning for CHRISTIAN/prerenal azotemia, improving but inadequate p.o. intake today and placed on supplementary IV fluid maintenance with BMP recheck in the morning. Admission and Anticipated Discharge Date Admission Date: February 27, 2021 Kath Ferro is seen at the bedside this morning. She reports she is beginning to feel improved, still not able to tolerate breakfast but felt better following Zofran administration. Denies fever, chills, sweats overnight. She denies dysuria, polyuria. She reports that following discharge from the hospital she did take her antibiotics as directed and had not missed any doses. No diarrhea/constipation. Review of Systems Review of Systems: Constitutional: Denies fever, chills, malaise Eyes: Denies vision change ENT: Denies ear pain, sore throat, sinus pain Cardiovascular: Denies Chest pain, chest pressure, palpitations, extremity swelling Respiratory: Denies shortness of breath, cough, sputum production, difficulty breathing Gastrointestinal: Versus nausea/vomiting Genitourinary: Denies dysuria, urinary frequency Musculoskeletal: Denies acute focal weakness, muscle aches/pain, joint aches/pain. Endorses chronic back pain unchanged. Integumentary:Denies acute rash, lesions, bruising Physical Exam Physical Exam: General: A&Ox3. NAD. Cooperative. HEENT: Atraumatic, normocephalic. Visual acuity and hearing grossly intact. Pulm: CTAB A&P. -wheezes, -rales, -rhonchi. Symmetrical chest rise. No increase work of breathing. No respiratory distress. Cardiac: RRR, -mrg. Radial pulses intact and symmetrical. Abdominal: Nontender, nondistended, soft. BS present. Palpation of epigastrium does not induce nausea. Results & Data Results & Data ([facility]) Vital Signs (Past 12 Hours) Vital Signs Temp Pulse Pulse Resp BP Pulse Ox 03/01/21 12:45 36.8 C 75 16 112/65 92 03/01/21 07:41 64 03/01/21 07:39 36.5 C 64 18 152/72 H 94 03/01/21 03:05 37.1 C 60 17 121/67 94 PG Care Time/CCT Total # of Minutes Spent Total Time Spent with Patient: Total time spent is greater than 50% in coordination of care (as documented) at patient's floor/unit and/or counseling patient: Coding Level of Care Code 49468 Subseq Hosp Care Lvl 3 Diagnoses Gastritis K29.70 Urinary tract infection N39.0 ACTH deficiency E23.6 Pancytopenia D61.818 Hypothyroidism E03.9 Hypertension I10 Depression F32.9 COPD (chronic obstructive pulmonary disease) J44.9 COPD type: unspecified COPD Diabetes E11.9 CRF (chronic renal failure) N18.9 Chronic kidney disease stage: unspecified stage CHRISTIAN (acute kidney injury) N17.9 (1) COPD (chronic obstructive pulmonary disease) COPD type: unspecified COPD Qualified Code(s): J44.9 - Chronic obstructive pulmonary disease, unspecified (2) CRF (chronic renal failure) Chronic kidney disease stage: unspecified stage Qualified Code(s): N18.9 - Chronic kidney disease, unspecified
[2021-03-01] MEDS ORDERED: SODIUM CHLORIDE 0.9% 1000ML 250 ML IV ONE (19:50)
[2021-03-01] MEDS ORDERED: SODIUM CHLORIDE 0.9% 1000ML 1,000 ML IV SCH (20:00)
[2021-03-01] MEDS: FAMOTIDINE 20 MG TAB PO SCH (20:27)
[2021-03-01] MEDS: PANTOprazole 40 MG TAB PO SCH (20:27)
[2021-03-02] MEDS: ONDANSETRON 4 MG OD TAB PO PRN (06:08)
[2021-03-02] MEDS: LEVOTHYROXINE SODIUM 112 MCG TABLET PO SCH (06:15)
[2021-03-02] MEDS: ACETAMINOPHEN 325 MG TAB PO PRN ×3 (07:49→23:13)
[2021-03-02 08:05] LABS: Hematocrit (blood only) 30.4 % (37-47); Hemoglobin 9.8 g/dL (12.0-16.0); Mean Corpuscular Hgb Conc 32.2 g/dL (32-36); Mean Corpuscular Volume 86.9 fL (80-100); Mean Platelet Volume 9.9 fL (7.4-10.4); Platelet Count 229 K/uL (130-400); RDW Coefficient of Variation 16.4 % (11.5-14.5); RDW Standard Deviation 52.2 fL (36.4-46.3); White Blood Count 7.47 K/uL (4.8-10.8)
[2021-03-02 08:22] LABS: ALC (manual) 1.88 K/uL (1.2-3.4); ANC (manual) 3.84 K/uL (1.4-6.5); Basophils # (manual) 0.13 K/uL (0-0.2); Basophils % (manual) 1.7 %; Eosinophils # (manual) 0.65 K/uL (0-0.5); Eosinophils % (manual) 8.7 %; Lymphocytes # (manual) 1.88 K/uL (1.2-3.4); Lymphocytes % (manual) 25.2 %; Metamyelocytes # (manual) 0.07 K/uL (0-0); Metamyelocytes % (manual) 0.9 %; Monocytes # (manual) 0.78 K/uL (0.11-0.59); Monocytes % (manual) 10.4 %; Myelocytes # (manual) 0.13 K/uL (0-0); Myelocytes % (manual) 1.7 %; Neutrophils # (manual) 3.84 K/uL (1.4-6.5); Neutrophils % (manual) 51.4 %
[2021-03-02 08:35] LABS: Creatinine Clr Calc Pharmacy 30.3 ml/min; Est GFR (African American) 30.9 ml/min; Est GFR (Non-African American) 26.7 ml/min
[2021-03-02] MEDS: INSULIN ASPART 100 UNITS/ML 3 ML PEN SC SCH ×4 (08:45→20:14)
[2021-03-02] MEDS: THEOPHYLLINE 300MG EXTENDED REL TAB PO SCH ×2 (08:46→20:11)
[2021-03-02] MEDS: FAMOTIDINE 20 MG TAB PO SCH ×2 (08:47→20:11)
[2021-03-02] MEDS: SERTRALINE HCL 100 MG TABLET PO SCH (08:47)
[2021-03-02] MEDS: FOLIC ACID 1 MG TAB PO SCH (08:47)
[2021-03-02] MEDS: cephALEXin 250 MG CAP PO SCH ×2 (08:47→20:11)
[2021-03-02] MEDS: BUDESONIDE EC 3 MG CAP PO SCH (08:47)
[2021-03-02] MEDS: HYDROCORTISONE 10 MG TAB PO SCH (08:48)
--- NOTE | 2021-03-02 15:39 | Hospitalist Progress Note ---
Date of Service March 02, 2021 Assessment & Plan (1) Back pain: Plan: due to L3 compression fracture no relief with Tylenol or Lidoderm patch will try Ultram 50mg q4 PRN PT/OT evaluations try to get home tomorrow (2) Gastritis: Plan: Kasie is a 75-year-old female who presented to the hospital with nausea and vomiting which resolved following admission to the hospital. Nausea/vomiting 2/2 gastritis Patient with no unusual food exposures prior to episode Blood cultures no growth to date CTA/P: Some concerning for perinephric inflammation without obvious infection. Patient without dysuria, UC shows E. coli greater than 100,000 CFU, pansensitive with treatment as below. Patient recently with admission to [facility] with treatment for possible pyelonephritis, reports she had not missed any doses of her home antibiotics. Covid negative Famotidine twice daily Zofran as needed Follow clinically, CBC/BMP in the morning Suspect that her symptoms are due to viral gastroenteritis versus gastritis medicamentosa. Reports did not tolerate breakfast well, some nausea limiting meal at lunch, but improvement of the nausea through the late afternoon. Increased creatinine as discussed in CHRISTIAN (3) Urinary tract infection: Plan: CTA/P: Some concerning for perinephric inflammation without obvious infection. UC shows E. coli greater than 100,000 CFU, pansensitive with treatment as below Patient without symptoms dysuria, low suspicion for treatment failure of her prior course Cefepime narrowed to Keflex 500mg 4 times daily based on susceptibilities Patient with penicillin allergy, tolerated cephalosporins without reaction during this admission. 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 Patient placed on stress dose steroids 50 mg every 8 in ER, patient clinically progressing Resumed hydrocortisone 20 mg a.m./10 mg p.m., patient remains normotensive (5) Pancytopenia: Plan: Patient with history of chemotherapy (6) Hypothyroidism: Plan: Continue home Synthroid (7) Hypertension: Plan: Home carvedilol, Lasix held pending volume repletion, patient mildly hypotensive on recheck today Plan as noted in gastritis, resume antihypertensives once BP normalized and patient taking oral nutrition adequately (8) Depression: Plan: Continue sertraline 100 mg every morning (9) COPD (chronic obstructive pulmonary disease): Plan: Continue ipratropium every 4 hours as needed No wheezing or difficulty breathing on exam (10) Diabetes: Plan: Adequate glycemic control on sliding scale Hold oral antiglycemic's Last A1c 7.7% DM diet as tolerated (11) CRF (chronic renal failure): Plan: Baseline creatinine approximately 1.41.5 Renally dose meds Cr is stable today (12) CHRISTIAN (acute kidney injury): Plan: ? Prerenal azotemia versus CHRISTIAN Patient with baseline creatinine of approximately 1.4-1.5, increased to 2.16 today Cr down to 1.8 today, no further fluids Plan: plan for discharge to home tomorrow, see if Ultram helps low back pain, compression fracture Admission and Anticipated Discharge Date Admission Date: February 27, 2021 Subjective patient doing okay, only complaint is low back pain, no relief with Tylenol will try Ultram reviewed prior imaging, L3 compression fracture, no disc disease she says she is tolerating food and liquids, taking medications, no vomiting her diarrhea has been resolved she is at her baseline in terms of functional status breathing well, no cough, no chest pain, no fever she thinks she is ready for discharge tomorrow Review of Systems Review of Systems: All systems reviewed & are unremarkable except as noted in Subjective Respiratory: no cough and no dyspnea Cardiovascular: no chest pain and no edema Gastrointestinal: no abdominal pain, no nausea, no vomiting, no constipation and no diarrhea/loose stools Musculoskeletal: + back pain Physical Exam Constitutional: well developed and well nourished; no acute distress and + uncomfortable (due to low back pain) Neck: trachea midline, no thyromegaly Respiratory: normal respiratory effort, lungs clear to auscultation Cardiovascular: RRR, no murmur, no edema Gastrointestinal (Abdomen): normal bowel sounds, soft, nontender, no hepatosplenomegaly Musculoskeletal: Head/Neck/Chest: normocephalic, head atraumatic and neck supple; no chest tenderness Spine: + pain with thoraco-lumbar ROM, + lumbar spinal tenderness (over L3 spinous process) and + paraspinal tenderness (lumbar) Extremities: extremities normal to inspection and strength 5/5 throughout; no cyanosis, no clubbing and no petechiae Skin: no rashes, warm and dry Neurologic: normal touch/pain/proprioception, CN's II-XI intact bilaterally, moves all extremities and awake; no focal motor deficits Psychiatric: A+Ox3, euthymic affect Results & Data Results & Data ([facility]) Vital Signs (Past 12 Hours) Vital Signs Temp Pulse Pulse Resp BP Pulse Ox 03/02/21 15:37 37.0 C 71 18 139/76 95 03/02/21 11:27 37.1 C 73 18 106/42 L 91 03/02/21 08:00 37.1 C 66 18 150/83 H 94 03/02/21 07:20 75 03/02/21 04:29 66 Laboratory Results Laboratory Results - last 24 hr 03/01/21 03/01/21 03/02/21 16:35 20:18 07:39 WBC RBC Hgb Hct MCV MCH MCHC RDW Std Deviation RDW Coeff of Maye Plt Count MPV Neutrophils % (Manual) Lymphocytes % (Manual) Monocytes % (Manual) Eosinophils % (Manual) Basophils % (Manual) Metamyelocytes % (Man) Myelocytes % (Man) Neutrophils # (Manual) Total Absolute Neuts Lymphocytes # (Manual) Total Abs Lymphocytes Monocytes # (Manual) Eosinophils # (Manual) Basophils # (Manual) Metamyelocytes # (Man) Myelocytes # (Manual) Creatinine Est Cr Clr Drug Dosing Est GFR ( Amer) Est GFR (Non-Af Amer) POC Glucose 216 H 237 H 94 03/02/21 03/02/21 03/02/21 07:51 07:51 11:19 WBC 7.47 RBC 3.50 L Hgb 9.8 L Hct 30.4 L MCV 86.9 MCH 28.0 MCHC 32.2 RDW Std Deviation 52.2 H RDW Coeff of Maye 16.4 H Plt Count 229 MPV 9.9 Neutrophils % (Manual) 51.4 Lymphocytes % (Manual) 25.2 Monocytes % (Manual) 10.4 Eosinophils % (Manual) 8.7 Basophils % (Manual) 1.7 Metamyelocytes % (Man) 0.9 Myelocytes % (Man) 1.7 Neutrophils # (Manual) 3.84 Total Absolute Neuts 3.84 Lymphocytes # (Manual) 1.88 Total Abs Lymphocytes 1.88 Monocytes # (Manual) 0.78 H Eosinophils # (Manual) 0.65 H Basophils # (Manual) 0.13 Metamyelocytes # (Man) 0.07 H Myelocytes # (Manual) 0.13 H Creatinine 1.81 H D Est Cr Clr Drug Dosing 30.3 Est GFR ( Amer) 30.9 Est GFR (Non-Af Amer) 26.7 POC Glucose 146 H Medications Administered Current Inpatient Medications Acetaminophen (Acetaminophen 325 Mg Tab) 650 mg PO Q4H PRN PRN Reason: pain Stop: 03/30/21 20:28 Last Admin: 03/02/21 07:49 Dose: 650 mg Documented by: Albuterol (Albuterol 0.083% Nebu Soln 3 Ml Vial) 2.5 mg INH Q4 PRN PRN Reason: cough,sob Stop: 03/29/21 20:30 Albuterol (Albuterol Hfa 8 Gm Inhaler (Combivent Respimat P&T Subs)) 1 puffs INH Q4R PRN PRN Reason: Shortness Of Breath / Wheezing Stop: 03/29/21 20:44 Budesonide (Budesonide Ec 3 Mg Cap) 9 mg PO QAM [facility] Stop: 03/30/21 08:59 Last Admin: 03/02/21 08:47 Dose: 9 mg Documented by: Cephalexin HCl (Cephalexin 250 Mg Cap) 250 mg PO BID SIMONA; Protocol Stop: 03/10/21 20:59 Last Admin: 03/02/21 08:47 Dose: 250 mg Documented by: Dextrose (Dextrose 50% 50 Ml Syringe) 25 - 50 ml IV UD PRN; Protocol PRN Reason: Hypoglycemia Protocol Stop: 03/29/21 20:30 Famotidine (Famotidine 20 Mg Tab) 20 mg PO BID [facility] Stop: 03/31/21 20:59 Last Admin: 03/02/21 08:47 Dose: 20 mg Documented by: Folic Acid (Folic Acid 1 Mg Tab) 1 mg PO QAM [facility] Stop: 03/30/21 08:59 Last Admin: 03/02/21 08:47 Dose: 1 mg Documented by: Glucagon (Glucagon For Inj 1 Mg Vial) 1 mg SQ UD PRN; Protocol PRN Reason: Hypoglycemia Protocol Stop: 03/29/21 20:30 Glucose (Glucose 10 Tabs/Tube) 4 - 8 tabs PO UD PRN; Protocol PRN Reason: Hypoglycemia Protocol Stop: 03/29/21 20:30 Glucose (Glucose 40% Gel 15 Gm Tube) 15 - 30 gm PO UD PRN; Protocol PRN Reason: Hypoglycemia Protocol Stop: 03/29/21 20:30 Hydrocortisone (Hydrocortisone 10 Mg Tab) 10 mg PO PM [facility] Stop: 04/01/21 20:59 Hydrocortisone (Hydrocortisone 10 Mg Tab) 20 mg PO QAM [facility] Stop: 04/01/21 08:59 Last Admin: 03/02/21 08:48 Dose: 20 mg Documented by: Insulin Aspart (Insulin Aspart 100 Units/Ml 3 Ml Pen) 0 units SC ACHS [facility] Stop: 03/29/21 20:30 Last Admin: 03/02/21 12:32 Dose: Not Given Documented by: Ipratropium Arrington (Ipratropium Hfa Inhaler (Combivent Respimat P&T Subs)) 1 puffs INH Q4R PRN PRN Reason: Shortness Of Breath / Wheezing Stop: 03/29/21 20:45 Levothyroxine Sodium (Levothyroxine Sodium 112 Mcg Tablet) 112 mcg PO DAILYBB [facility] Stop: 03/30/21 06:29 Last Admin: 03/02/21 06:15 Dose: 112 mcg Documented by: Miscellaneous (Carbohydrates For Hypoglycemia ) 15 - 30 gm PO UD PRN PRN Reason: Hypoglycemia Protocol Stop: 03/29/21 20:30 Ondansetron HCl (Ondansetron 4 Mg Od Tab) 4 mg PO Q6H PRN PRN Reason: Nausea Stop: 03/31/21 14:21 Last Admin: 03/02/21 06:08 Dose: 4 mg Documented by: Pantoprazole Sodium (Pantoprazole 40 Mg Tab) 40 mg PO HS [facility] Stop: 03/29/21 20:59 Last Admin: 03/01/21 20:27 Dose: 40 mg Documented by: Sertraline HCl (Sertraline Hcl 100 Mg Tablet) 100 mg PO QAM [facility] Stop: 03/30/21 08:59 Last Admin: 03/02/21 08:47 Dose: 100 mg Documented by: Theophylline (Theophylline 300mg Extended Rel Tab) 300 mg PO BID [facility] Stop: 03/29/21 20:59 Last Admin: 03/02/21 08:46 Dose: 300 mg Documented by: Tramadol HCl (Tramadol Hcl 50 Mg Tablet) 50 mg PO Q4H PRN PRN Reason: Pain Stop: 04/01/21 15:36 PG Care Time/CCT Total # of Minutes Spent Total Time Spent with Patient: Total time spent is greater than 50% in coordination of care (as documented) at patient's floor/unit and/or counseling patient: Coding Level of Care Code 82257 Subseq Hosp Care Lvl 2 Diagnoses Gastritis K29.70 Urinary tract infection N39.0 ACTH deficiency E23.6 Pancytopenia D61.818 Hypothyroidism E03.9 Hypertension I10 Depression F32.9 COPD (chronic obstructive pulmonary disease) J44.9 COPD type: unspecified COPD Diabetes E11.9 CRF (chronic renal failure) N18.9 Chronic kidney disease stage: unspecified stage CHRISTIAN (acute kidney injury) N17.9 Back pain M54.9 (1) COPD (chronic obstructive pulmonary disease) COPD type: unspecified COPD Qualified Code(s): J44.9 - Chronic obstructive pulmonary disease, unspecified (2) CRF (chronic renal failure) Chronic kidney disease stage: unspecified stage Qualified Code(s): N18.9 - Chronic kidney disease, unspecified
[2021-03-02] MEDS: traMADol HCL 50 MG TABLET PO PRN ×2 (15:56→23:13)
[2021-03-02] MEDS: PANTOprazole 40 MG TAB PO SCH (20:11)
[2021-03-02] MEDS ORDERED: HYDROCORTISONE 10 MG TAB PO SCH (21:00)
[2021-03-03] MEDS: ONDANSETRON 4 MG OD TAB PO PRN (05:58)
[2021-03-03] MEDS: LEVOTHYROXINE SODIUM 112 MCG TABLET PO SCH (06:18)
[2021-03-03 06:40] LABS: Hematocrit (blood only) 31.1 % (37-47); Hemoglobin 10.1 g/dL (12.0-16.0); Mean Corpuscular Hemoglobin 28.5 pg (25-34); Mean Corpuscular Hgb Conc 32.5 g/dL (32-36); Mean Corpuscular Volume 87.6 fL (80-100); Mean Platelet Volume 9.6 fL (7.4-10.4); Platelet Count 219 K/uL (130-400); RDW Coefficient of Variation 16.3 % (11.5-14.5); RDW Standard Deviation 52.4 fL (36.4-46.3); Red Blood Count 3.55 M/uL (4.2-5.4); White Blood Count 7.33 K/uL (4.8-10.8)
[2021-03-03 07:14] LABS: BUN Creatinine Ratio 10.7 (10-20); Creatinine Clr Calc Pharmacy 31.6 ml/min; Est GFR (African American) 32.2 ml/min; Est GFR (Non-African American) 27.8 ml/min; Magnesium 2.1 mg/dl (1.8-2.4); Potassium 3.6 mmol/L (3.5-5.1)
[2021-03-03] MEDS: cephALEXin 250 MG CAP PO SCH (08:04)
[2021-03-03] MEDS: HYDROCORTISONE 10 MG TAB PO SCH (08:04)
[2021-03-03] MEDS: BUDESONIDE EC 3 MG CAP PO SCH (08:05)
[2021-03-03] MEDS: SERTRALINE HCL 100 MG TABLET PO SCH (08:05)
[2021-03-03] MEDS: FAMOTIDINE 20 MG TAB PO SCH (08:05)
[2021-03-03] MEDS: FOLIC ACID 1 MG TAB PO SCH (08:05)
[2021-03-03] MEDS: THEOPHYLLINE 300MG EXTENDED REL TAB PO SCH (08:05)
[2021-03-03] MEDS: INSULIN ASPART 100 UNITS/ML 3 ML PEN SC SCH (08:08)
--- NOTE | 2021-03-03 09:42 | Discharge Summary ---
Date of Service March 03, 2021 Admission HPI Per Admitting Provider Patient is a 75-year-old female with a history of lung cancer followed by Dr. 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 She is in her normal state of health until this morning when she had some diffuse abdominal pain and then started vomiting which she was unable to keep fluids down after trying Zofran. She also had mild back pain and there is a known recently diagnosed compression fracture of L1. She denies urgency hesitancy frequency of urinary symptoms, the abdominal pain has resolved. The nausea has resolved. She does feel like she has mild exertional dyspnea. Principal Diagnosis Gastritis Discharge Exam Constitutional well developed, well nourished and comfortable (low back pain better); no acute distress Neck trachea midline, no thyromegaly Respiratory normal respiratory effort, lungs clear to auscultation Cardiovascular RRR, no murmur, no edema Gastrointestinal (Abdomen) normal bowel sounds, soft, nontender, no hepatosplenomegaly Musculoskeletal Head/Neck/Chest: normocephalic, head atraumatic and neck supple; no chest tenderness Spine: no pain with thoraco-lumbar ROM, no lumbar spinal tenderness (over L3 spinous process) and no paraspinal tenderness (lumbar) Extremities: extremities normal to inspection and strength 5/5 throughout; no cyanosis, no clubbing and no petechiae Skin no rashes, warm and dry Neurologic normal touch/pain/proprioception, CN's II-XI intact bilaterally, moves all extremities and awake; no focal motor deficits Psychiatric A+Ox3, euthymic affect Discharge Data Allergies Allergy/AdvReac Type Severity Reaction Status Date / Time adhesive Allergy Unknown PULLS SKIN Verified 02/27/21 14:07 OFF Penicillins Allergy Unknown TONGUE Verified 02/27/21 14:07 SWELLING azithromycin AdvReac Unknown Nausea Verified 02/27/21 14:07 Consultations 02/27/21 15:18 ED Decision to Admit Stat Ordered Studies 02/27/21 12:36 CT abd pelvis wo con Stat Hospital Course (1) Gastritis: Kasie is a 75-year-old female who presented to the hospital with nausea and vomiting which resolved following admission to the hospital. Nausea/vomiting 2/2 gastritis Patient with no unusual food exposures prior to episode Blood cultures no growth to date CTA/P: Some concerning for perinephric inflammation without obvious infection. Patient without dysuria, UC shows E. coli greater than 100,000 CFU, pansensitive with treatment as below. Patient recently with admission to [facility] with treatment for possible pyelonephritis, reports she had not missed any doses of her home antibiotics. Covid negative Famotidine twice daily Zofran as needed Follow clinically, CBC/BMP in the morning Suspect that her symptoms are due to viral gastroenteritis vs medication adverse effect symptoms much better past 48 hours, tolerating diet, not eating too much, being cautious, she feels like she is ready to go home (2) Back pain: due to L3 compression fracture no relief with Tylenol or Lidoderm patch much better with Ultram 50mg q4 PRN PT/OT evaluations can go home with family, recommend outpatient PT (3) Urinary tract infection: CTA/P: Some concerning for perinephric inflammation without obvious infection. UC shows E. 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 Patient placed on stress dose steroids 50 mg every 8 in ER, patient clinically progressing Resumed hydrocortisone 20 mg a.m./10 mg p.m., patient remains normotensive (5) Pancytopenia: Patient with history of chemotherapy (6) Hypothyroidism: Continue home Synthroid (7) Hypertension: Home carvedilol, Lasix held pending volume repletion, patient mildly hypotensive on recheck today Plan as noted in gastritis, resume antihypertensives once BP normalized and patient taking oral nutrition adequately (8) Depression: Continue sertraline 100 mg every morning (9) COPD (chronic obstructive pulmonary disease): Continue ipratropium every 4 hours as needed No wheezing or difficulty breathing on exam (10) Diabetes: Adequate glycemic control on sliding scale Hold oral antiglycemic's Last A1c 7.7% DM diet as tolerated (11) CRF (chronic renal failure): Baseline creatinine approximately 1.41.5 Renally dose meds Cr is stable today (12) CHRISTIAN (acute kidney injury): ? Prerenal azotemia versus CHRSITIAN Patient with baseline creatinine of approximately 1.4-1.5, increased to 2.16 Cr down to 1.8 plan for discharge to home today, pain is much better with Ultram Total Time Total Time Spent Total Time Spent (In Minutes): 32 Total Time Includes: Examination of the Patient, Discharge Planning and Medication Reconciliation Discharge Plan Discharge Items Patient Disposition: Home - Home Health Services Reason For Visit: FEBRILE ILLNESS Discharge Diagnosis: UTI, pyelonephritis L3 compression fracture causing low back pain Gastritis Condition on Discharge: Good Goals: complete course of Keflex for UTI take Ultram as needed for low back pain Activity: Per Instructions section Lifting: No more than 5 pounds Lifting Comment: do not want to put stress on your back Bathing: No limitations Exercise/Sports: Gradually increase as tolerated Weightbearing: Full weightbearing Non-emergency contact: Primary Care Provider Call non-emergency contact if: you have any medication questions, your symptoms worsen and you have a fever Follow-up/Referrals: Arthur Cruz [Primary Care Provider] - (PLEASE CALL YOU PRIMARY CARE PROVIDER TO SCHEDULE A DISCHARGE FOLLOW-UP VISIT IN ONE WEEK.) Diet: Carb Consistent or DM2 Addtl Attending Provider Instructions: Medications: - KEFLEX: 250mg twice a day, take for 10 more days for complicated UTI, pyelonephritis - ULTRAM: only take as needed for severe back pain, can use every 4 hours as needed, use Tylenol 650mg every 6 hours as needed as well - PANTOPRAZOLE: 40mg daily, this is for gastritis - PEPCID: take 20mg twice a day for the next month to help with gastritis, no need to continue after a month - BUDESONIDE: be sure to continue to take 9mg daily until the end of March, this is treatment for colitis, follow up with gastroenterology Gastritis, vomiting: no major issues on EGD except gastritis take pantoprazole and Pepcid as above advance diet as tolerated follow up with gastroenterology, can be in several weeks as you need to follow up for colitis as well Low back pain: due to L3 compression fracture, continue with Ultram as needed for pain, avoid lifting objects heavier than 5 lbs, continue therapy, walk Pending Studies at Discharge: No Stand-Alone Forms: [employer] [facility], Smoking Cessation Medications and DC Order Prescriptions: New cephalexin 250 mg Capsule 250 mg PO BID 10 Days Qty: 20 RF: 0 tramadol 50 mg Tablet 50 mg PO Q4H PRN (Reason: pain) 30 Days Qty: 30 RF: 0 famotidine 20 mg Tablet 20 mg PO BID 30 Days Qty: 60 RF: 0 pantoprazole 40 mg Tablet,Delayed Release (Dr/Ec) 40 mg PO HS 30 Days Qty: 30 RF: 3 hydrocortisone [Cortef] 10 mg Tablet 10 mg PO PM 30 Days Qty: 30 RF: 3 hydrocortisone [Cortef] 10 mg Tablet 20 mg PO QAM 30 Days Qty: 60 RF: 3 Continued sertraline [Zoloft] 100 mg tablet 100 mg PO QAM RF: 0 theophylline 300 mg tablet extended release 12 hr 300 mg PO BID RF: 0 folic acid 1 mg tablet 1 mg PO QAM RF: 0 Combivent Respimat 20-100 mcg/actuation Mist 1 puff INHALATION Q4H PRN (Reason: Shortness Of Breath Or Wheezing) RF: 0 furosemide [Lasix] 20 mg tablet 20 mg PO DAILY PRN (Reason: Swelling) RF: 0 levothyroxine [Synthroid] 112 mcg tablet 112 mcg PO DAILYBB RF: 0 albuterol sulfate 2.5 mg /3 mL (0.083 %) solution for nebulization 2.5 mg continuous nebulization Q4 PRN (Reason: cough,sob) RF: 0 budesonide [Entocort EC] 3 mg capsule,delayed,extend.release 9 mg PO QAM 30 Days Qty: 90 RF: 0 Discontinued esomeprazole magnesium [Nexium] 20 mg capsule,delayed release(DR/EC) 20 mg PO HS RF: 0 cefdinir 300 mg capsule 300 mg PO BID 5 Days Qty: 10 RF: 0 icosapent ethyl [Vascepa] 1 gram capsule 2 g PO BIDM RF: 0 carvedilol [Coreg] 6.25 mg tablet 6.25 mg PO BID RF: 0 Januvia 50 mg tablet 50 mg PO QAM RF: 0 Discharge Orders: Discharge Order (Routine); Ordered 03/03/21 Ordered By: Morgan Ackerman Admission Data Admit Date/Time: 02/27/21 17:54 Attending Provider: Morgan Ackerman Admit Provider: Sung Fenton Primary Care Provider: Arthur Cruz Other Providers: Colt Salcedo Other Interventions: Discharge Summary Assessment (RN) Last Done: 03/03/21 09:50 Coding Level of Care Code D/C DAY MANAGEMENT >30 MINS Diagnoses Back pain M54.9 Gastritis K29.70 Urinary tract infection N39.0 ACTH deficiency E23.6 Pancytopenia D61.818 Hypothyroidism E03.9 Hypertension I10 Depression F32.9 COPD (chronic obstructive pulmonary disease) J44.9 COPD type: unspecified COPD Diabetes E11.9 CRF (chronic renal failure) N18.9 Chronic kidney disease stage: unspecified stage CHRISTIAN (acute kidney injury) N17.9
[2021-03-03] MEDS: ACETAMINOPHEN 325 MG TAB PO PRN (10:24)
[2021-03-03] MEDS: traMADol HCL 50 MG TABLET PO PRN (10:24)
[2021-03-03] MEDS ORDERED: cephALEXin 500 MG CAP PO SCH (21:00)
== END 2021-03-03 11:52 | disposition home or self-care (01) | DRG 392 ==
LOC: ED 11:35 → SUATTDRO 17:54 → 2N 17:54
DX: E23.6 Other disorders of pituitary gland; C34.90 Malignant neoplasm of unspecified part of unspecified bronchus or lung; E11.22 Type 2 diabetes mellitus with diabetic chronic kidney disease; Z86.16 Personal history of COVID-19; J44.9 Chronic obstructive pulmonary disease, unspecified; K29.70 Gastritis, unspecified, without bleeding; F32.9 Major depressive disorder, single episode, unspecified; N17.9 Acute kidney failure, unspecified; M48.56XA Collapsed vertebra, not elsewhere classified, lumbar region, initial encounter for fracture; N18.30 Chronic kidney disease, stage 3 unspecified; Z87.891 Personal history of nicotine dependence; E03.9 Hypothyroidism, unspecified; N39.0 Urinary tract infection, site not specified; E27.40 Unspecified adrenocortical insufficiency; B96.20 Unspecified Escherichia coli [E. coli] as the cause of diseases classified elsewhere; D61.818 Other pancytopenia; Z88.0 Allergy status to penicillin

== ENCOUNTER 2021-03-09 15:12 | Observation (INO) ==
--- NOTE | 2021-03-09 15:27 | Emergency Department Note ---
Impression & Plan Acute electrocardiogram changes, Tachycardia ED Provider Note NAME: FELISA SCHWAB AGE: 75 SEX: F : 1945 ARRIVES VIA: Ambulance INFORMANT: Patient, ED PROVIDER(S): Osvaldo Gonzalez MD Chief Complaint: Abdominal pain, nausea and vomiting HPI: Patient does have a known history and recurrence of these issues. The patient denies any fevers chills chest pains or shortness of breath. The patient is not vaccinated for Covid. Patient states she has quit smoking. The patient denies any fevers or chills chest pains. The patient does have diffuse upper abdominal pain. Patient states that it began maybe last night and early this morning with one episode of nonbloody nonbilious emesis. Patient states si nce then she is a dry heaves. Patient did try to take Zofran as well as other medications help with her symptoms but they have not improved. Patient denies any falls heavy lifting twisting or turning. Patient states that her symptoms been fairly persistent since they began. Most recently the patient did have blood work on March 03 which showed a normal white count hemoglobin of 10 and normal platelet count. Patient's kidney function showed a creatinine 1.7. Patient was discharged on March 06 patient was recently diagnosed with lymphocytic colitis. Patient was most recently admitted due to concern for gastritis nausea and vomiting. She had a CT at that time which showed perinephric inflammation but without obvious infection. Patient did receive treatment with antibiotics for pansensitive E. coli. Covid negative. Patient is on 20 mg of hydrocortisone in the morning and 10 mg in the evening. ROS: See HPI for pertinent positives and negatives. A total of 10 systems were revie wed and otherwise negative. Past medical history: See below Surgical history: See below Social history: See below Physical Exam: GENERAL: NAD, wearing glasses, wearing a mask, non-toxic. EYE EXAM: Normal conjunctiva. PERRL, no anisocoria and EOM's grossly intact w/o pain. NECK: Supple, no nuchal rigidity, no adenopathy, non-tender. No signs of meningismus. LUNGS: Clear to auscultation. Normal chest wall mechanics. HEART: NSR, no MRG. ABDOMEN: Abdomen soft, mild diffuse upper abdominal discomfort, not peritonitic, normo-active bowel sounds, no masses, no rebound or guarding. BACK: No CVA TTP. SKIN: No rashes and no bruising. UPPER EXTREMITIES: Upper extremities are grossly normal. LOWER EXTREMITIES: Grossly normal, no edema. NEURO EXAM: A&O x3, cranial nerves II-XII grossly intact, normal speech, moves all 4 extremities on command w/o issue. Differential diagnoses: Appendicitis, ovarian cyst, ovarian torsion, ectopic , TOA, PID, infections, diverticulitis, UTI, obstruction, mesenteric ischemia, aortic pathology, inflammatory bowel disease, renal colic, PUD, pancreatitis, biliary pathology, hernia, volvulus, constipation, as well as other pathologies. Course: Patient was seen and evaluated the bedside. Full history physical exam was performed. EKG interpreted by me Sinus tachycardia, rate of 102, normal intervals, normal axis ST depressions anteriorly and laterally with T wave inversions throughout. Previous EKG shows may be slight depression but the T wave inversions are no acute from comparison EKG February 27, 2021. Repeat EKG normal sinus rhythm, rate of 74, normal intervals, normal axis, T wave inversion with ST depression anteriorly and laterally. Imaging Studies: See Below Cardiac monitoring: An order was placed for continuous cardiac monitoring. The monitor shows a rate of 85 with sinus rhythm. MDM: Patient was seen due to concern for abdominal pain nausea and vomiting. Blood work was obtained and the patient was treated symptomatically. The patient has a normal white count and hemoglobin. Platelet count is unremarkable. Kidney function at chronic baseline CKD stage IV. Mild hypokalemia. Magnesium is slightly low at 1.7. Troponin not detectable. Patient does have new EKG changes. The patient denies any chest pains. Repeat EKG had been ordered after the patient did have a run of a monomorphic and narrow complex tachycardia that lasted for approximately 20 beats. Given this with EKG changes do not think in a reasonable for the patient to be admitted to the medicine service. I did speak with Dr. Martinez and the patient was admitted to the medicine service. Repeat troponin not detectable. Past Med/Surg History Medical History Abdominal pain ACTH deficiency Acute kidney injury superimposed on chronic kidney disease Adrenal adenoma Arthritis Chronic renal failure, stage 3 (moderate) COPD (chronic obstructive pulmonary disease) COVID-19 05/2020 Depression Diabetes Diffuse abdominal pain Fever Hypoxia Lung cancer 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 Neutropenic fever Orthostatic hypotension Right knee DJD Secondary adrenal insufficiency Vomiting Surgical History Hx of right knee surgery Family History Mother Heart disease Father , in his 90s - old age COPD (chronic obstructive pulmonary disease) Other Diabetes Hypertension Lung disease Social History Smoking Status: Former smoker Tobacco Type: Cigarettes Age Started Using Tobacco: 19; Age Quit Using Tobacco: 75; packs per day: 0.5; Second Hand Exposure: No; Hx Alcohol Use: No Hx Substance Use: No Preferred Language: Mohawk Communication Ability: Effective Lead Burner Supervisor Required: No Beliefs That Will Affect Care: None marital status: / Current Living Situation: Family Current Living Situation Comment: grand daughter stays with PT current occupational status: retired How many Children do You have: 4 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 Feels Safe at Home: Yes Safety Concerns: Feels Safe At This Time Assistive Devices: Denture - Upper, Denture - Lower, Glasses and Walker Allergies Allergies Allergy/AdvReac Type Severity Reaction Status Date / Time adhesive Allergy Unknown PULLS SKIN Verified 03/09/21 16:40 OFF Penicillins Allergy Unknown TONGUE Verified 03/09/21 16:40 SWELLING azithromycin AdvReac Unknown Nausea Verified 03/09/21 16:40 Home Meds Home Medications Medication Instructions Recorded Confirmed folic acid 1 mg tablet 1 mg PO QAM 07/17/18 03/09/21 ipratropium 20 mcg-albuterol 100 1 puff INHALATION Q4H PRN 07/17/18 03/09/21 mcg/actuation mist for inhalation (Combivent Respimat) sertraline 100 mg tablet (Zoloft) 100 mg PO QAM 07/17/18 03/09/21 theophylline 300 mg 300 mg PO BID 07/17/18 03/09/21 tablet,extended release,12 hr furosemide 20 mg tablet (Lasix) 20 mg PO DAILY PRN 06/28/20 03/09/21 albuterol sulfate 2.5 mg CONTINUOUS NEBULIZATION Q4 01/15/21 03/09/21 PRN levothyroxine 112 mcg tablet 112 mcg PO DAILYBB 02/09/21 03/09/21 (Synthroid) acetaminophen 325 mg tablet 650 mg PO QID PRN 03/09/21 03/09/21 (Tylenol) cephalexin 250 mg capsule 250 mg PO BID 03/09/21 03/09/21 diphenoxylate-atropine 2.5 1 tab PO Q3H PRN 03/09/21 03/09/21 mg-0.025 mg tablet esomeprazole magnesium 20 mg 20 mg PO PM 03/09/21 03/09/21 capsule,delayed release Previous Rx's Medication Instructions Recorded budesonide 3 mg 9 mg PO QAM 30 Days #90 ea 03/03/21 capsule,delayed,extended release (Entocort EC) cephalexin 250 mg capsule 250 mg PO BID 10 Days #20 cap 03/03/21 famotidine 20 mg tablet 20 mg PO BID 30 Days #60 tab 03/03/21 hydrocortisone 10 mg tablet 10 mg PO PM 30 Days #30 tab 03/03/21 (Cortef) hydrocortisone 10 mg tablet 20 mg PO QAM 30 Days #60 tab 03/03/21 (Cortef) tramadol 50 mg tablet 50 mg PO Q4H PRN 30 Days #30 tab 03/03/21 Results & Data (ED) Vital Signs Vital Signs - 24 hr 03/09/21 15:21 03/09/21 15:31 03/09/21 15:33 Temperature 36.7 C Temperature Source Oral Pulse Rate 88 91 H 80 Pulse Rate [Radial] Pulse Rate from SpO2 Sensor 88 91 H Respiratory Rate 14 16 18 Blood Pressure 138/86 129/58 L 138/86 Blood Pressure [Left Arm] Blood Pressure Mean 103 81 103 Blood Pressure Mean [Left Arm] Pulse Oximetry 96 94 99 Oxygen Delivery Method Room Air Sepsis Recent Fever Within 48 Hours No Sepsis New/Unexplained Change in Mental Status No Sepsis Action Taken by Nursing No Action Required 03/09/21 16:00 03/09/21 16:30 03/09/21 17:12 Temperature Temperature Source Pulse Rate 81 77 Pulse Rate [Radial] 80 Pulse Rate from SpO2 Sensor 81 77 Respiratory Rate 16 17 16 Blood Pressure 119/68 142/73 H Blood Pressure [Left Arm] 131/87 Blood Pressure Mean 85 96 Blood Pressure Mean [Left Arm] 101 Pulse Oximetry 91 98 96 Oxygen Delivery Method Sepsis Recent Fever Within 48 Hours Sepsis New/Unexplained Change in Mental Status Sepsis Action Taken by Nursing 03/09/21 18:31 Temperature Temperature Source Pulse Rate Pulse Rate [Radial] 79 Pulse Rate from SpO2 Sensor Respiratory Rate 16 Blood Pressure Blood Pressure [Left Arm] 143/107 H Blood Pressure Mean Blood Pressure Mean [Left Arm] 119 Pulse Oximetry 96 Oxygen Delivery Method Room Air Sepsis Recent Fever Within 48 Hours Sepsis New/Unexplained Change in Mental Status Sepsis Action Taken by Alf Medications Current Medication List: was personally reviewed by me Laboratory Data Attestation: I reviewed the patient's lab results. Result diagrams: 03/09/21 15:30 03/09/21 15:30 Lab Results 03/09/21 03/09/21 03/09/21 Range/Units 15:30 15:30 18:09 WBC 7.75 (4.8-10.8) K/uL RBC 4.22 (4.2-5.4) M/uL Hgb 12.1 (12.0-16.0) g/dL Hct 36.5 L (37-47) % MCV 86.5 (80-100) fL MCH 28.7 (25-34) pg MCHC 33.2 (32-36) g/dL RDW Std Deviation 52.3 H (36.4-46.3) fL RDW Coeff of Maye 16.6 H (11.5-14.5) % Plt Count 299 (130-400) K/uL MPV 10.4 (7.4-10.4) fL Immature Gran % (Auto) 0.8 % Neut % (Auto) 48.8 % Lymph % (Auto) 28.6 % Woodward % (Auto) 12.0 % Eos % (Auto) 9.3 % Baso % (Auto) 0.5 % Neut # (Auto) 3.78 (1.4-6.5) K/uL Lymph # (Auto) 2.22 (1.2-3.4) K/uL Woodward # (Auto) 0.93 H (0.11-0.59) K/uL Eos # (Auto) 0.72 H (0-0.5) K/uL Baso # (Auto) 0.04 (0-0.2) K/uL Immature Gran # (Auto) 0.06 H (0.00-0.02) K/uL Absolute Nucleated RBC 0.03 H (0-0) K/uL Nucleated RBC % (auto) 0.4 % Sodium 137 (136-145) mmol/L Potassium 3.2 L (3.5-5.1) mmol/L Chloride 105 (98-107) mmol/L Carbon Dioxide 21 (21-32) mmol/L Anion Gap 11.0 (3-11) BUN 14 (7-18) mg/dl Creatinine 2.02 H (0.6-1.2) mg/dl Est Cr Clr Drug Dosing 26.9 ml/min Est GFR ( Amer) 27.1 ml/min Est GFR (Non-Af Amer) 23.4 ml/min BUN/Creatinine Ratio 6.9 L (10-20) Glucose 150 H (70-99) mg/dl Calcium 9.0 (8.5-10.1) mg/dl Magnesium (1.8-2.4) mg/dl Total Bilirubin 0.6 (0.2-1) mg/dl AST 15 (15-37) U/L ALT 13 (12-78) U/L Alkaline Phosphatase 107 (45-117) U/L Troponin I < 0.015 (0-0.045) ng/ml Total Protein 7.1 (6.4-8.2) gm/dl Albumin 3.2 L (3.4-5.0) gm/dl Globulin 3.9 (2.5-4.0) gm/dl Albumin/Globulin Ratio 0.8 L (0.9-2) Lipase 88 (73-393) U/L Specimen Hemolysis Urine Color Yellow Urine Appearance Clear (Clear) Urine pH 5.0 (4.5-7.5) Ur Specific Staley 1.007 (1.000-1.030) Urine Protein Negative (Negative) Urine Glucose (UA) Negative (Negative) Urine Ketones Negative (Negative) Urine Blood Negative (Negative) Urine Nitrite Negative (Negative) Urine Bilirubin Negative (Negative) Urine Urobilinogen Negative (Negative) Ur Leukocyte Esterase Trace H (Negative) Urine WBC (Auto) 1-5 (0-5) /hpf Urine RBC (Auto) 0-4 (0-4) /hpf U Hyaline Cast (Auto) 1-5 (0-5) /lpf U Epithel Cells (Auto) >30 H (0-5) /lpf Urine Bacteria (Auto) Negative (Negative) COVID-19 Eval Order SARS-CoV-2 (PCR) (Negative) 03/09/21 03/09/21 03/09/21 Range/Units 19:11 19:11 19:11 WBC (4.8-10.8) K/uL RBC (4.2-5.4) M/uL Hgb (12.0-16.0) g/dL Hct (37-47) % MCV (80-100) fL MCH (25-34) pg MCHC (32-36) g/dL RDW Std Deviation (36.4-46.3) fL RDW Coeff of Maye (11.5-14.5) % Plt Count (130-400) K/uL MPV (7.4-10.4) fL Immature Gran % (Auto) % Neut % (Auto) % Lymph % (Auto) % Woodward % (Auto) % Eos % (Auto) % Baso % (Auto) % Neut # (Auto) (1.4-6.5) K/uL Lymph # (Auto) (1.2-3.4) K/uL Woodward # (Auto) (0.11-0.59) K/uL Eos # (Auto) (0-0.5) K/uL Baso # (Auto) (0-0.2) K/uL Immature Gran # (Auto) (0.00-0.02) K/uL Absolute Nucleated RBC (0-0) K/uL Nucleated RBC % (auto) % Sodium (136-145) mmol/L Potassium (3.5-5.1) mmol/L Chloride (98-107) mmol/L Carbon Dioxide (21-32) mmol/L Anion Gap (3-11) BUN (7-18) mg/dl Creatinine (0.6-1.2) mg/dl Est Cr Clr Drug Dosing ml/min Est GFR ( Amer) ml/min Est GFR (Non-Af Amer) ml/min BUN/Creatinine Ratio (10-20) Glucose (70-99) mg/dl Calcium (8.5-10.1) mg/dl Magnesium 1.7 L (1.8-2.4) mg/dl Total Bilirubin (0.2-1) mg/dl AST (15-37) U/L ALT (12-78) U/L Alkaline Phosphatase (45-117) U/L Troponin I < 0.015 (0-0.045) ng/ml Total Protein (6.4-8.2) gm/dl Albumin (3.4-5.0) gm/dl Globulin (2.5-4.0) gm/dl Albumin/Globulin Ratio (0.9-2) Lipase (73-393) U/L Specimen Hemolysis Urine Color Urine Appearance (Clear) Urine pH (4.5-7.5) Ur Specific Staley (1.000-1.030) Urine Protein (Negative) Urine Glucose (UA) (Negative) Urine Ketones (Negative) Urine Blood (Negative) Urine Nitrite (Negative) Urine Bilirubin (Negative) Urine Urobilinogen (Negative) Ur Leukocyte Esterase (Negative) Urine WBC (Auto) (0-5) /hpf Urine RBC (Auto) (0-4) /hpf U Hyaline Cast (Auto) (0-5) /lpf U Epithel Cells (Auto) (0-5) /lpf Urine Bacteria (Auto) (Negative) COVID-19 Eval Order Covid19 at [facility] SARS-CoV-2 (PCR) NEGATIVE (Negative) Administered Medications Enoxaparin Sodium (Enoxaparin Inj 30 Mg/0.3 Ml Syr) 30 mg SQ Q24H SIMONA Stop: 04/08/21 21:59 Last Admin: 03/09/21 23:00 Dose: 30 mg Documented by: [id number] Famotidine (Famotidine 20 Mg Tab) 20 mg PO BID SIMONA Stop: 04/08/21 21:20 Last Admin: 03/09/21 23:00 Dose: 20 mg Documented by: [id number] Hydrocortisone (Hydrocortisone 10 Mg Tab) 10 mg PO PM SIMONA Stop: 04/08/21 21:20 Last Admin: 03/09/21 23:00 Dose: 10 mg Documented by: [id number] Magnesium Sulfate/Dextrose (Magnesium Sulfate / D5w) 1 gm in 100 mls @ 50 mls/hr IV Q2H SIMONA Stop: 03/10/21 04:29 Last Admin: 03/09/21 22:59 Dose: 50 mls/hr Documented by: [id number] Insulin Aspart (Insulin Aspart 100 Units/Ml 3 Ml Pen) 0 units SC ACHS SIMONA Stop: 04/08/21 21:20 Last Admin: 03/09/21 21:55 Dose: Not Given Documented by: [id number] Discontinued Medications Sodium Chloride (Nss 1000ml) 1,000 mls @ 999 mls/hr IV .Q1H1M STA Stop: 03/09/21 16:41 Last Infusion: 03/09/21 16:48 Dose: 0 mls/hr Documented by: [id number] Admin: 03/09/21 15:48 Dose: 999 mls/hr Documented by: [id number] Sodium Chloride (Nss 1000ml) 1,000 mls @ 999 mls/hr IV .Q1H1M ONE Stop: 03/09/21 19:46 Last Infusion: 03/09/21 21:24 Dose: 0 mls/hr Documented by: [id number] Admin: 03/09/21 19:00 Dose: 999 mls/hr Documented by: [id number] Potassium Chloride (K Fuentes / Wtr) 10 meq in 100 mls @ 100 mls/hr IV Q1H SIMONA Stop: 03/09/21 20:59 Last Infusion: 03/09/21 21:24 Dose: 0 mls/hr Documented by: [id number] Admin: 03/09/21 20:16 Dose: 100 mls/hr Documented by: [id number] Infusion: 03/09/21 20:01 Dose: 100 mls/hr Documented by: [id number] Admin: 03/09/21 19:01 Dose: 100 mls/hr Documented by: [id number] Metoclopramide HCl (Metoclopramide Hcl Inj 5 Mg/Ml 2 Ml Vial) 10 mg IV NOW STA Stop: 03/09/21 15:42 Last Admin: 03/09/21 15:48 Dose: 10 mg Documented by: [id number] Morphine Sulfate (Morphine Sulfate 4 Mg/Ml 1 Ml Carp\Vial) 4 mg IV NOW STA Stop: 03/09/21 15:42 Last Admin: 03/09/21 15:48 Dose: 4 mg Documented by: [id number] Potassium Chloride (Potassium Chloride Crtab 20 Meq Tabcr) 40 meq PO NOW STA Stop: 03/09/21 20:08 Last Admin: 03/09/21 23:04 Dose: Not Given Documented by: [id number] Imaging Data Radiologist's Impression: Abdomen/Pelvis CT 03/09/21 16:40 CT SCAN OF THE ABDOMEN AND PELVIS WITHOUT IV CONTRAST CLINICAL HISTORY: Generalized abdominal pain. Nausea and vomiting. COMPARISON STUDY: Abdominal CT dated 02/27/2021. TECHNIQUE: CT scan of the abdomen and pelvis is performed from the lung bases to the proximal femora. Images are reviewed in the axial, sagittal, and coronal planes. IV contrast was not administered for this examination. Note that the ex amination is suboptimal without IV contrast. A dose lowering technique was utilized adhering to the principles of ALARA. CT DOSE: 935.84 mGycm FINDINGS: Lung bases: The heart is normal in size and without pericardial effusion. The coronary arteries are densely calcified. The lung bases are clear noting bibasilar scarring/atelectasis. A small hiatal hernia is noted. Liver: The unenhanced liver is normal in size, contour, and attenuation. There is mild central intrahepatic biliary ductal dilatation. Gallbladder: Surgically absent noting clips in the gallbladder fossa. Spleen: Normal in size and attenuation. Pancreas: The unenhanced pancreas is moderately atrophic and grossly unremarkable. Adrenal glands: A 2.1 cm left adrenal adenoma is unchanged. The right adrenal gland is normal in appearance. Kidneys: The unenhanced kidneys are normal in size and without hydronephrosis. There are 2 nonobstructing right renal calculi which measure up to 3 mm. No left renal calculi are seen. A 1.9 cm hyperdense cyst is again seen in the right lower pole. Small simple 0cysts measure up to 13 mm. Additional subcentimeter cortical hypodensities also likely represent cysts but are too small for definitive characterization. There is asymmetric left-sided perinephric st randing is compared to left. Abdominal vasculature: There is advanced atherosclerotic calcification as well as ectasia of the abdominal aorta. Bowel: There is moderate colonic diverticulosis without CT evidence of acute diverticulitis. No bowel obstruction is seen. Liquid stool is noted in the colon. The appendix is not identified and reported surgically absent. Peritoneum: There is no intraperitoneal free air or abdominal ascites. Lymphadenopathy: None. Pelvic viscera: The bladder is normal as visualized. The uterus is surgically absent. No adnexal lesion is seen. There is a small fat-containing right inguinal hernia. Skeletal structures: The skeletal structures are osteopenic. There is unchanged appearance of an acute to subacute superior endplate compression fracture of L3 with [id number] loss of height. There is mild paravertebral edema and minimally retropulsed fragments. No additional fracture is identified. No lytic or blastic lesions are seen. There are healed left-sided rib fractures. IMPRESSION: 1. There is unchanged appearance of an acute to subacute superior endplate compression fracture of L3 with [id number] loss of height as compared to 02/27/2021. 2. Liquid stool is noted in the colon. Correlate clinically for evidence of a diarrheal illness. 3. Slightly asymmetric left-sided perinephric stranding is unchanged and of indeterminant etiology/significance. There is no obstructing left ureteral stone or hydronephrosis. Correlate with clinical findings and urinalysis. 4. Tiny nonobstructing right renal calculi. 5. Moderate colonic diverticulosis without CT evidence of acute diverticulitis. 6. Additional findings as above. ACT 112: Negative or not required by law. Electronically signed by: Jaxon Felipe M.D. 03/09/2021 5:03 PM Discharge Plan Visit Data Chief Complaint: Abdominal Pain Stated Complaint: Abdominal Pain ED Provider: Osvaldo Gonzalez Discharge Problem: Acute electrocardiogram changes, Tachycardia Patient Disposition: Admitted As Inpatient Discharge Instructions Interventions: ED Discharge Assessment Last Done: 03/09/21 20:54
[2021-03-09] MEDS ORDERED: METOCLOPRAMIDE HCL INJ 5 MG/ML 2 ML VIAL IV STA (15:41)
[2021-03-09] MEDS ORDERED: MoRPHine SULFATE 4 MG/ML 1 ML CARP\\VIAL IV STA (15:41)
[2021-03-09] MEDS ORDERED: SODIUM CHLORIDE 0.9% 1000ML 1,000 ML IV STA (15:41)
[2021-03-09 15:53] LABS: Basophils # (auto) 0.04 K/uL (0-0.2); Basophils % (auto) 0.5 %; Eosinophils # (auto) 0.72 K/uL (0-0.5); Eosinophils % (auto) 9.3 %; Hematocrit (blood only) 36.5 % (37-47); Hemoglobin 12.1 g/dL (12.0-16.0); Immature Granulocytes # (auto) 0.06 K/uL (0.00-0.02); Immature Granulocytes % (auto) 0.8 %; Lymphocytes # (auto) 2.22 K/uL (1.2-3.4); Lymphocytes % (auto) 28.6 %; Mean Corpuscular Hemoglobin 28.7 pg (25-34); Mean Corpuscular Hgb Conc 33.2 g/dL (32-36); Mean Corpuscular Volume 86.5 fL (80-100); Mean Platelet Volume 10.4 fL (7.4-10.4); Monocytes # (auto) 0.93 K/uL (0.11-0.59); Neutrophils # (auto) 3.78 K/uL (1.4-6.5); Neutrophils % (auto) 48.8 %; Nucleated RBC # (auto) 0.03 K/uL (0-0); Nucleated RBC % (auto) 0.4 %; Platelet Count 299 K/uL (130-400); RDW Coefficient of Variation 16.6 % (11.5-14.5); RDW Standard Deviation 52.3 fL (36.4-46.3); Red Blood Count 4.22 M/uL (4.2-5.4); White Blood Count 7.75 K/uL (4.8-10.8)
[2021-03-09 16:37] LABS: Alanine Aminotransferase 13 U/L (12-78); Albumin Globulin Ratio 0.8 (0.9-2); Albumin Level 3.2 gm/dl (3.4-5.0); Alkaline Phosphatase 107 U/L (45-117); Aspartate Aminotransferase 15 U/L (15-37); BUN Creatinine Ratio 6.9 (10-20); Bilirubin,Total 0.6 mg/dl (0.2-1); Blood Urea Nitrogen 14 mg/dl (7-18); Carbon Dioxide 21 mmol/L (21-32); Chloride 105 mmol/L (98-107); Creatinine Clr Calc Pharmacy 26.9 ml/min; Est GFR (African American) 27.1 ml/min; Est GFR (Non-African American) 23.4 ml/min; Globulin 3.9 gm/dl (2.5-4.0); Glucose 150 mg/dl (70-99); Lipase 88 U/L (73-393); Potassium 3.2 mmol/L (3.5-5.1); Sodium 137 mmol/L (136-145); Total Protein 7.1 gm/dl (6.4-8.2); Troponin I < 0.015 ng/ml (0-0.045)
--- NOTE | 2021-03-09 17:04 | CT Scan Report ---
CT SCAN OF THE ABDOMEN AND PELVIS WITHOUT IV CONTRAST CLINICAL HISTORY: Generalized abdominal pain. Nausea and vomiting. COMPARISON STUDY: Abdominal CT dated 02/27/2021. TECHNIQUE: CT scan of the abdomen and pelvis is performed from the lung bases to the proximal femora. Images are reviewed in the axial, sagittal, and coronal planes. IV contrast was not administered for this examination. Note that the examination is suboptimal without IV contrast. A dose lowering techn ique was utilized adhering to the principles of ALARA. CT DOSE: 935.84 mGycm FINDINGS: Lung bases: The heart is normal in size and without pericardial effusion. The coronary arteries are d ensely calcified. The lung bases are clear noting bibasilar scarring/atelectasis. A small hiatal keny ia is noted. Liver: The unenhanced liver is normal in size, contour, and attenuation. There is mild central intrah epatic biliary ductal dilatation. Gallbladder: Surgically absent noting clips in the gallbladder fossa. Spleen: Normal in size and attenuation. Pancreas: The unenhanced pancreas is moderately atrophic and grossly unremarkable. Adrenal glands: A 2.1 cm left adrenal adenoma is unchanged. The right adrenal gland is normal in appe arance. Kidneys: The unenhanced kidneys are normal in size and without hydronephrosis. There are 2 nonobstruc ting right renal calculi which measure up to 3 mm. No left renal calculi are seen. A 1.9 cm hyperdens e cyst is again seen in the right lower pole. Small simple 0cysts measure up to 13 mm. Additional sub centimeter cortical hypodensities also likely represent cysts but are too small for definitive charac terization. There is asymmetric left-sided perinephric stranding is compared to left. Abdominal vasculature: There is advanced atherosclerotic calcification as well as ectasia of the abdo shelbie aorta. Bowel: There is moderate colonic diverticulosis without CT evidence of acute diverticulitis. No bowel obstruction is seen. Liquid stool is noted in the colon. The appendix is not identified and reporte d surgically absent. Peritoneum: There is no intraperitoneal free air or abdominal ascites. Lymphadenopathy: None. Pelvic viscera: The bladder is normal as visualized. The uterus is surgically absent. No adnexal lesi on is seen. There is a small fat-containing right inguinal hernia. Skeletal structures: The skeletal structures are osteopenic. There is unchanged appearance of an acut e to subacute superior endplate compression fracture of L3 with [id number] loss of height. Ther e is mild paravertebral edema and minimally retropulsed fragments. No additional fracture is identifi ed. No lytic or blastic lesions are seen. There are healed left-sided rib fractures. IMPRESSION: 1. There is unchanged appearance of an acute to subacute superior endplate compression fracture of L3 with [id number] loss of height as compared to 02/27/2021. 2. Liquid stool is noted in the colon. Correlate clinically for evidence of a diarrheal illness. 3. Slightly asymmetric left-sided perinephric stranding is unchanged and of indeterminant etiology/si gnificance. There is no obstructing left ureteral stone or hydronephrosis. Correlate with clinical fi ndings and urinalysis. 4. Tiny nonobstructing right renal calculi. 5. Moderate colonic diverticulosis without CT evidence of acute diverticulitis. 6. Additional findings as above. ACT 112: Negative or not required by law. Electronically signed by: Jaxon Felipe M.D. 03/09/2021 5:03 PM
[2021-03-09 18:26] LABS: Appearance Urine Clear (Clear); Bacteria Urine Automated Negative (Negative); Bilirubin Urine Negative (Negative); Blood Urine Negative (Negative); Color Urine Yellow; Epithelial Cell Urine Auto >30 /lpf (0-5); Glucose Urine UA Negative (Negative); Ketones Urine Negative (Negative); Leukocyte Esterase Urine Trace (Negative); Nitrite Urine Negative (Negative); Protein Urine Negative (Negative); RBC Urine Automated 0-4 /hpf (0-4); Specific Gravity Urine 1.007 (1.000-1.030); Urobilinogen Urine Negative (Negative)
[2021-03-09] MEDS ORDERED: SODIUM CHLORIDE 0.9% 1000ML 1,000 ML IV ONE (18:46)
[2021-03-09] MEDS: POTASSIUM CHLORIDE / WTR 10 MEQ/100 ML PLCT IV SCH ×2 (19:01→20:16)
[2021-03-09 19:40] LABS: Magnesium 1.7 mg/dl (1.8-2.4); Troponin I < 0.015 ng/ml (0-0.045)
[2021-03-09] MEDS ORDERED: MAGNESIUM SULFATE / D5W 1 GM/100 ML BAG IV STA (20:07)
[2021-03-09] MEDS ORDERED: POTASSIUM CHLORIDE CRTAB 20 MEQ TABCR PO STA (20:07)
--- NOTE | 2021-03-09 20:09 | History & Physical Report ---
Date of Service March 09, 2021 Assessment & Plan (1) Palpitations: Plan: 71-year-old female with multiple medical problems presenting with nausea, dry heaving as well as 2 episodes of dizziness/lightheadedness and palpitations. Patient with brief run of narrow complex tach arrhythmia noted in the ER possibly associated with symptoms. Admit to medical with telemetry IV fluid and electrolyte repletion Repeat troponin Check theophylline level (2) ACTH deficiency: Plan: Chronic. Stable. Mild hypokalemia. No clinical evidence of adrenal crisis Continue hydrocortisone 20 mg p.o. every morning and 10 mg p.o. every afternoon. Continue budesonide 9 mg p.o. every morning Low threshold for stress dosing should patient become hypotensive or acutely ill (3) Chronic renal failure, stage 3 (moderate): Plan: BUN and creatinine near baseline Continue to monitor BUN, creatinine, urine output and electrolytes Avoid nephrotoxic agents (4) Depression: Plan: Chronic. Stable. Continue sertraline 100 mg p.o. every morning (5) COPD (chronic obstructive pulmonary disease): Plan: Chronic. Stable. Patient denies shortness of breath, cough, wheeze Continue albuterol as needed Continue ipratropium as needed (6) Diabetes: Plan: Chronic. Blood sugar = 150. Hemoglobin A1c on December 31, 2020 = 7.7 -ISS -Goal blood sugar 100 - 140 (7) Hypothyroidism: Plan: Chronic. Stable. Continue Synthroid 112 mcg p.o. daily Plan: FENpatient administered IV fluid in the ER, potassium repleted, repeat labs in the morning, consistent carb diet as tolerated ProphylaxisLovenox 30, Protonix CodeDNR/DNI per discussion with patient Dispositionobservation to medical telemetry History of Present Illness Chief Complaint: Nausea/vomiting Primary Care Provider: Arthur Rogel Is a 75-year-old female with multiple medical problems presenting with intractable nausea and vomiting. Patient states that today she developed upper abdominal pain. Patient also reports 2 episodes of palpitations and lightheadedness.The first episode occurred today around 1300.She states that she felt palpitations, clamminess and lightheaded.Her niece at bedside witnessed the episode and states that the patient was less responsive and was not thinking or speaking clearly The episode lasted several minutes then resolved. Patient had a second similar episode while in the ER this evening around 1800. Possibly associated with 20 beats of narrow complex tachycardia. EKG obtained in the ER with new mild TW changes present in anterior and lateral leads. No additional complaints at this time ER course: Reglan, morphine, potassium, normal saline Allergies Allergy/AdvReac Type Severity Reaction Status Date / Time adhesive Allergy Unknown PULLS SKIN Verified 03/09/21 16:40 OFF Penicillins Allergy Unknown TONGUE Verified 03/09/21 16:40 SWELLING azithromycin AdvReac Unknown Nausea Verified 03/09/21 16:40 Home Medications Medication Instructions Recorded Confirmed Type folic acid 1 mg tablet 1 mg PO QAM 07/17/18 03/09/21 History ipratropium 20 mcg-albuterol 100 1 puff INHALATION Q4H PRN 07/17/18 03/09/21 History mcg/actuation mist for inhalation (Combivent Respimat) sertraline 100 mg tablet (Zoloft) 100 mg PO QAM 07/17/18 03/09/21 History theophylline 300 mg 300 mg PO BID 07/17/18 03/09/21 History tablet,extended release,12 hr furosemide 20 mg tablet (Lasix) 20 mg PO DAILY PRN 06/28/20 03/09/21 History albuterol sulfate 2.5 mg CONTINUOUS NEBULIZATION Q4 01/15/21 03/09/21 History PRN levothyroxine 112 mcg tablet 112 mcg PO DAILYBB 02/09/21 03/09/21 History (Synthroid) budesonide 3 mg 9 mg PO QAM 30 Days #90 ea 03/03/21 03/09/21 Rx capsule,delayed,extended release (Entocort EC) cephalexin 250 mg capsule 250 mg PO BID 10 Days #20 cap 03/03/21 03/09/21 Rx famotidine 20 mg tablet 20 mg PO BID 30 Days #60 tab 03/03/21 03/09/21 Rx hydrocortisone 10 mg tablet 10 mg PO PM 30 Days #30 tab 03/03/21 03/09/21 Rx (Cortef) hydrocortisone 10 mg tablet 20 mg PO QAM 30 Days #60 tab 03/03/21 03/09/21 Rx (Cortef) tramadol 50 mg tablet 50 mg PO Q4H PRN 30 Days #30 tab 03/03/21 03/09/21 Rx acetaminophen 325 mg tablet 650 mg PO QID PRN 03/09/21 03/09/21 History (Tylenol) cephalexin 250 mg capsule 250 mg PO BID 03/09/21 03/09/21 History diphenoxylate-atropine 2.5 1 tab PO Q3H PRN 03/09/21 03/09/21 History mg-0.025 mg tablet esomeprazole magnesium 20 mg 20 mg PO PM 03/09/21 03/09/21 History capsule,delayed release Past Med/Surg History Medical History Abdominal pain ACTH deficiency Acute kidney injury superimposed on chronic kidney disease Adrenal adenoma Arthritis Chronic renal failure, stage 3 (moderate) COPD (chronic obstructive pulmonary disease) COVID-19 05/2020 Depression Diabetes Diffuse abdominal pain Fever Hypoxia Lung cancer 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 Neutropenic fever Orthostatic hypotension Right knee DJD Secondary adrenal insufficiency Vomiting Surgical History Hx of right knee surgery Family History Mother Heart disease Father , in his 90s - old age COPD (chronic obstructive pulmonary disease) Other Diabetes Hypertension Lung disease Social History Smoking Status: Former smoker Tobacco Type: Cigarettes Age Started Using Tobacco: 19; Age Quit Using Tobacco: 75; packs per day: 0.5; Second Hand Exposure: No; Hx Alcohol Use: No Hx Substance Use: No Preferred Language: Burkinan Communication Ability: Effective Physical Sciences Professor Required: No Beliefs That Will Affect Care: None marital status: / Current Living Situation: Family Current Living Situation Comment: grand daughter stays with PT current occupational status: retired How many Children do You have: 4 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 Feels Safe at Home: Yes Safety Concerns: Feels Safe At This Time Assistive Devices: Denture - Upper, Denture - Lower, Glasses and Walker Review of Systems Review of Systems: All systems reviewed & are unremarkable except as noted in HPI & below + Nausea + Dry heaving + Abdominal pain + Poor appetite Patient denies fever/chills/chest pain/diarrhea/dysuria Physical Exam Physical Exam: General: patient resting comfortably, NAD, non-toxic in appearance, AA&O x 4 Skin: warm, dry, intact, no rashes or lesions HEENT: NC/AT, PERRL, EOMI, anicteric sclera, conjunctiva without injection, external ear normal to inspection and nontender, nares patent, moist mucus membranes, dentition intact, no oropharyngeal lesions, neck supple, trachea midline, no LAD, no thyromegaly, no JVD Heart: +S1/S2, regular, no m/r/g Lungs: equal air entry bilaterally, no rales/rhonchi/wheezes Abd: +BS, soft, NT/ND, no masses/organomegaly/ascites Ext: warm, 2+ pulses in UE/LE bilaterally, no clubbing/cyanosis or edema Neuro: nonfocal, patient AA&O x 4, speech intact, no facial droop, moving all extremities on command with equal strength 5/5 Results & Data Results & Data ([facility]) Vital Signs (Past 12 Hours) Vital Signs Temp Pulse Pulse Resp BP BP Pulse Ox 03/09/21 18:31 79 16 143/107 H 96 03/09/21 17:12 80 16 131/87 96 03/09/21 16:30 77 17 142/73 H 98 03/09/21 16:00 81 16 119/68 91 03/09/21 15:33 36.7 C 80 18 138/86 99 03/09/21 15:31 91 H 16 129/58 L 94 03/09/21 15:21 88 14 138/86 96 Laboratory Results Laboratory Results WBC 7.75 K/uL (4.8-10.8) 03/09/21 15:30 RBC 4.22 M/uL (4.2-5.4) 03/09/21 15:30 Hgb 12.1 g/dL (12.0-16.0) 03/09/21 15:30 Hct 36.5 % (37-47) L 03/09/21 15:30 MCV 86.5 fL (80-100) 03/09/21 15:30 MCH 28.7 pg (25-34) 03/09/21 15:30 MCHC 33.2 g/dL (32-36) 03/09/21 15:30 RDW Std Deviation 52.3 fL (36.4-46.3) H 03/09/21 15:30 RDW Coeff of Maye 16.6 % (11.5-14.5) H 03/09/21 15:30 Plt Count 299 K/uL (130-400) 03/09/21 15:30 MPV 10.4 fL (7.4-10.4) 03/09/21 15:30 Immature Gran % (Auto) 0.8 % 03/09/21 15:30 Neut % (Auto) 48.8 % 03/09/21 15:30 Lymph % (Auto) 28.6 % 03/09/21 15:30 [place] % (Auto) 12.0 % 03/09/21 15:30 Eos % (Auto) 9.3 % 03/09/21 15:30 Baso % (Auto) 0.5 % 03/09/21 15:30 Neut # (Auto) 3.78 K/uL (1.4-6.5) 03/09/21 15:30 Lymph # (Auto) 2.22 K/uL (1.2-3.4) 03/09/21 15:30 [place] # (Auto) 0.93 K/uL (0.11-0.59) H 03/09/21 15:30 Eos # (Auto) 0.72 K/uL (0-0.5) H 03/09/21 15:30 Baso # (Auto) 0.04 K/uL (0-0.2) 03/09/21 15:30 Immature Gran # (Auto) 0.06 K/uL (0.00-0.02) H 03/09/21 15:30 Absolute Nucleated RBC 0.03 K/uL (0-0) H 03/09/21 15:30 Nucleated RBC % (auto) 0.4 % 03/09/21 15:30 Sodium 137 mmol/L (136-145) 03/09/21 15:30 Potassium 3.2 mmol/L (3.5-5.1) L 03/09/21 15:30 Chloride 105 mmol/L (98-107) 03/09/21 15:30 Carbon Dioxide 21 mmol/L (21-32) 03/09/21 15:30 Anion Gap 11.0 (3-11) 03/09/21 15:30 BUN 14 mg/dl (7-18) 03/09/21 15:30 Creatinine 2.02 mg/dl (0.6-1.2) H 03/09/21 15:30 Est Cr Clr Drug Dosing 26.9 ml/min 03/09/21 15:30 Est GFR ( Amer) 27.1 ml/min 03/09/21 15:30 Est GFR (Non-Af Amer) 23.4 ml/min 03/09/21 15:30 BUN/Creatinine Ratio 6.9 (10-20) L 03/09/21 15:30 Glucose 150 mg/dl (70-99) H 03/09/21 15:30 POC Glucose 137 mg/dl (70-99) H 03/09/21 21:42 Calcium 9.0 mg/dl (8.5-10.1) 03/09/21 15:30 Magnesium 1.7 mg/dl (1.8-2.4) L 03/09/21 19:11 Total Bilirubin 0.6 mg/dl (0.2-1) 03/09/21 15:30 AST 15 U/L (15-37) 03/09/21 15:30 ALT 13 U/L (12-78) 03/09/21 15:30 Alkaline Phosphatase 107 U/L (45-117) 03/09/21 15:30 Troponin I < 0.015 ng/ml (0-0.045) 03/09/21 19:11 Total Protein 7.1 gm/dl (6.4-8.2) 03/09/21 15:30 Albumin 3.2 gm/dl (3.4-5.0) L 03/09/21 15:30 Globulin 3.9 gm/dl (2.5-4.0) 03/09/21 15:30 Albumin/Globulin Ratio 0.8 (0.9-2) L 03/09/21 15:30 Lipase 88 U/L (73-393) 03/09/21 15:30 Specimen Hemolysis 03/09/21 15:30 Urine Color Yellow 03/09/21 18:09 Urine Appearance Clear (Clear) 03/09/21 18:09 Urine pH 5.0 (4.5-7.5) 03/09/21 18:09 Ur Specific [place] 1.007 (1.000-1.030) 03/09/21 18:09 Urine Protein Negative (Negative) 03/09/21 18:09 Urine Glucose (UA) Negative (Negative) 03/09/21 18:09 Urine Ketones Negative (Negative) 03/09/21 18:09 Urine Blood Negative (Negative) 03/09/21 18:09 Urine Nitrite Negative (Negative) 03/09/21 18:09 Urine Bilirubin Negative (Negative) 03/09/21 18:09 Urine Urobilinogen Negative (Negative) 03/09/21 18:09 Ur Leukocyte Esterase Trace (Negative) H 03/09/21 18:09 Urine WBC (Auto) 1-5 /hpf (0-5) 03/09/21 18:09 Urine RBC (Auto) 0-4 /hpf (0-4) 03/09/21 18:09 U Hyaline Cast (Auto) 1-5 /lpf (0-5) 03/09/21 18:09 U Epithel Cells (Auto) >30 /lpf (0-5) H 03/09/21 18:09 Urine Bacteria (Auto) Negative (Negative) 03/09/21 18:09 Theophylline 22 mcg/ml (10-20) H 03/09/21 21:30 COVID-19 Eval Order Covid19 at [facility] 03/09/21 19:11 SARS-CoV-2 (PCR) NEGATIVE (Negative) 03/09/21 19:11 Impressions Abdomen/Pelvis CT 03/09/21 16:40 CT SCAN OF THE ABDOMEN AND PELVIS WITHOUT IV CONTRAST CLINICAL HISTORY: Generalized abdominal pain. Nausea and vomiting. COMPARISON STUDY: Abdominal CT dated 02/27/2021. TECHNIQUE: CT scan of the abdomen and pelvis is performed from the lung bases to the proximal femora. Images are reviewed in the axial, sagittal, and coronal planes. IV contrast was not administered for this examination. Note that the examination is suboptimal without IV contrast. A dose lowering technique was utilized adhering to the principles of ALARA. CT DOSE: 935.84 mGycm FINDINGS: Lung bases: The heart is normal in size and without pericardial effusion. The coronary arteries are densely calcified. The lung bases are clear noting bibasilar scarring/atelectasis. A small hiatal hernia is noted. Liver: The unenhanced liver is normal in size, contour, and attenuation. There is mild central intrahepatic biliary ductal dilatation. Gallbladder: Surgically absent noting clips in the gallbladder fossa. Spleen: Normal in size and attenuation. Pancreas: The unenhanced pancreas is moderately atrophic and grossly unremar kable. Adrenal glands: A 2.1 cm left adrenal adenoma is unchanged. The right adrenal gland is normal in appearance. Kidneys: The unenhanced kidneys are normal in size and without hydronephrosis. T here are 2 nonobstructing right renal calculi which measure up to 3 mm. No left renal calculi are seen. A 1.9 cm hyperdense cyst is again seen in the right lower pole. Small simple 0cysts measure up to 13 mm. Additional subcentimeter cortical hypodensities also likely represent cysts but are too small for definitive characterization. There is asymmetric left-sided perinephric stranding is compared to left. Abdominal vasculature: There is advanced atherosclerotic calcification as well as ectasia of the abdominal aorta. Bowel: There is moderate colonic diverticulosis without CT evidence of acute diverticulitis. No bowel obstruction is seen. Liquid stool is noted in the colon. The appendix is not identified and reported surgically absent. Peritoneum: There is no intraperitoneal free air or abdominal ascites. Lymphadenopathy: None. Pelvic viscera: The bladder is normal as visualized. The uterus is surgically absent. No adnexal lesion is seen. There is a small fat-containing right inguinal hernia. Skeletal structures: The skeletal structures are osteopenic. There is unchanged appearance of an acute to subacute superior endplate compression fracture of L3 with [id number] loss of height. There is mild paravertebral edema and minimally retropulsed fragments. No additional fracture is identified. No lytic or blastic lesions are seen. There are healed left-sided rib fractures. IMPRESSION: 1. There is unchanged appearance of an acute to subacute superior endplate compression fracture of L3 with wauy-[id number]-lohxllir loss of height as compared to 02/27/2021. 2. Liquid stool is noted in the colon. Correlate clinically for evidence of a diarrheal illness. 3. Slightly asymmetric left-sided perinephric stranding is unchanged and of indeterminant etiology/significance. There is no obstructing left ureteral stone or hydronephrosis. Correlate with clinical findings and urinalysis. 4. Tiny nonobstructing right renal calculi. 5. Moderate colonic diverticulosis without CT evidence of acute diverticulitis. 6. Additional findings as above. ACT 112: Negative or not required by law. Electronically signed by: Jaxon Felipe M.D. 03/09/2021 5:03 PM Code Status & VTE Plan VTE Prophylaxis Plan VTE Prophylaxis will be ordered: Yes PG Care Time/CCT Total # of Minutes Spent Total Time Spent with Patient: Total time spent is greater than 50% in coordination of care (as documented) at patient's floor/unit and/or counseling patient: Coding Level of Care Code INT OBSERVATION CARE 70M LVL 3 Diagnoses ACTH deficiency E23.6 Chronic renal failure, stage 3 (moderate) N18.30 Chronic kidney disease stage 3 subtype: unspecified whether 3a or 3b Depression F32.9 COPD (chronic obstructive pulmonary disease) J44.9 COPD type: unspecified COPD Diabetes E11.9 Palpitations R00.2 Hypothyroidism E03.9 (1) Chronic renal failure, stage 3 (moderate) Chronic kidney disease stage 3 subtype: unspecified whether 3a or 3b Qualified Code(s): N18.30 - Chronic kidney disease, stage 3 unspecified (2) COPD (chronic obstructive pulmonary disease) COPD type: unspecified COPD Qualified Code(s): J44.9 - Chronic obstructive pulmonary disease, unspecified
[2021-03-09] MEDS ORDERED: HYDROCORTISONE 10 MG TAB PO SCH (21:21)
[2021-03-09] MEDS ORDERED: DEXTROSE 50% 50 ML SYRINGE IV PRN (21:21)
[2021-03-09] MEDS ORDERED: ONDANSETRON INJ 2 MG/ML 2 ML VIAL IV PRN (21:21)
[2021-03-09] MEDS ORDERED: GLUCOSE 10 TABS/TUBE PO PRN (21:21)
[2021-03-09] MEDS ORDERED: ALBUTEROL 0.083% NEBU SOLN 3 ML VIAL INH PRN (21:21)
[2021-03-09] MEDS ORDERED: DIPHENOXYLATE/ATROPINE 2.5/0.025MG TAB PO PRN (21:21)
[2021-03-09] MEDS ORDERED: GLUCOSE 40% GEL 15 GM TUBE PO PRN (21:21)
[2021-03-09] MEDS ORDERED: traMADol HCL 50 MG TABLET PO PRN (21:21)
[2021-03-09] MEDS ORDERED: GLUCAGON FOR INJ 1 MG VIAL SQ PRN (21:21)
[2021-03-09] MEDS ORDERED: IPRATROPIUM BROMIDE/ALBUTEROL respimat INH INH PRN (21:21)
[2021-03-09] MEDS ORDERED: CARBOHYDRATES FOR HYPOGLYCEMIA PO PRN (21:21)
[2021-03-09] MEDS ORDERED: ACETAMINOPHEN 325 MG TAB PO PRN (21:21)
[2021-03-09] MEDS ORDERED: Albuterol HFA 8 GM Inhaler (Combivent Respimat P&T Subs) INH PRN (21:38)
[2021-03-09] MEDS ORDERED: Ipratropium HFA Inhaler (Combivent Respimat P&T Subs) INH PRN (21:38)
[2021-03-09] MEDS: INSULIN ASPART 100 UNITS/ML 3 ML PEN SC SCH (21:55)
[2021-03-09] MEDS ORDERED: ENOXAPARIN INJ 30 MG/0.3 ML SYR SQ SCH (22:00)
[2021-03-09] MEDS: MAGNESIUM SULFATE / D5W 1 GM/100 ML BAG IV SCH (22:59)
[2021-03-09] MEDS: FAMOTIDINE 20 MG TAB PO SCH (23:00)
[2021-03-10] MEDS: MAGNESIUM SULFATE / D5W 1 GM/100 ML BAG IV SCH ×2 (00:15→02:16)
[2021-03-10] MEDS ORDERED: LEVOTHYROXINE SODIUM 112 MCG TABLET PO SCH (06:30)
[2021-03-10 08:03] LABS: Basophils # (auto) 0.02 K/uL (0-0.2); Basophils % (auto) 0.4 %; Eosinophils # (auto) 0.48 K/uL (0-0.5); Eosinophils % (auto) 9.5 %; Hematocrit (blood only) 32.2 % (37-47); Hemoglobin 10.3 g/dL (12.0-16.0); Immature Granulocytes # (auto) 0.04 K/uL (0.00-0.02); Immature Granulocytes % (auto) 0.8 %; Lymphocytes # (auto) 1.55 K/uL (1.2-3.4); Lymphocytes % (auto) 30.8 %; Mean Corpuscular Volume 87.5 fL (80-100); Mean Platelet Volume 9.4 fL (7.4-10.4); Monocytes # (auto) 0.46 K/uL (0.11-0.59); Monocytes % (auto) 9.1 %; Neutrophils # (auto) 2.48 K/uL (1.4-6.5); Neutrophils % (auto) 49.4 %; Platelet Count 237 K/uL (130-400); RDW Coefficient of Variation 16.5 % (11.5-14.5); RDW Standard Deviation 53.3 fL (36.4-46.3); Red Blood Count 3.68 M/uL (4.2-5.4); White Blood Count 5.03 K/uL (4.8-10.8)
[2021-03-10 08:41] LABS: Alanine Aminotransferase 10 U/L (12-78); Albumin Level 2.8 gm/dl (3.4-5.0); Alkaline Phosphatase 98 U/L (45-117); Aspartate Aminotransferase 10 U/L (15-37); BUN Creatinine Ratio 6.3 (10-20); Bilirubin Direct < 0.1 mg/dl (0-0.2); Blood Urea Nitrogen 10 mg/dl (7-18); Calcium 8.6 mg/dl (8.5-10.1); Carbon Dioxide 23 mmol/L (21-32); Chloride 107 mmol/L (98-107); Creatinine Clr Calc Pharmacy 32.8 ml/min; Est GFR (African American) 34.6 ml/min; Est GFR (Non-African American) 29.8 ml/min; Glucose 117 mg/dl (70-99); Magnesium 2.8 mg/dl (1.8-2.4); Potassium 3.9 mmol/L (3.5-5.1); Sodium 138 mmol/L (136-145); Total Protein 6.1 gm/dl (6.4-8.2)
[2021-03-10] MEDS: FAMOTIDINE 20 MG TAB PO SCH (08:46)
[2021-03-10] MEDS: INSULIN ASPART 100 UNITS/ML 3 ML PEN SC SCH ×3 (08:50→17:17)
[2021-03-10] MEDS ORDERED: PANTOprazole 40 MG TAB PO SCH (09:00)
[2021-03-10] MEDS ORDERED: BUDESONIDE EC 3 MG CAP PO SCH (09:00)
[2021-03-10] MEDS ORDERED: THEOPHYLLINE 300MG EXTENDED REL TAB PO SCH (09:00)
[2021-03-10] MEDS ORDERED: FOLIC ACID 1 MG TAB PO SCH (09:00)
[2021-03-10] MEDS ORDERED: HYDROCORTISONE 10 MG TAB PO SCH (09:00)
[2021-03-10] MEDS ORDERED: SERTRALINE HCL 100 MG TABLET PO SCH (09:00)
--- NOTE | 2021-03-10 15:25 | XCELERA ---
[id number]
--- NOTE | 2021-03-10 17:23 | Discharge Summary ---
Date of Service March 10, 2021 Admission HPI Per Admitting Provider Kasie Rogel Is a 75-year-old female with multiple medical problems presenting with intractable nausea and vomiting. Patient states that today she developed upper abdominal pain. Patient also reports 2 episodes of palpitations and lightheadedness.The first episode occurred today around 1300.She states that she felt palpitations, clamminess and lightheaded.Her niece at bedside witnessed the episode and states that the patient was less responsive and was not thinking or speaking clearly The episode lasted several minutes then resolved. Patient had a second similar episode while in the ER this evening around 1800. Possibly associated with 20 beats of narrow complex tachycardia. EKG obtained in the ER with new mild TW changes present in anterior and lateral leads. No additional complaints at this time ER course: Reglan, morphine, potassium, normal saline Principal Diagnosis Presyncope, nausea/vomiting/chronic diarrhea, theophylline toxicity Discharge Exam Constitutional WD/WN, vitals as above Eyes + anicteric sclerae ENMT external ear and nose normal, oropharynx normal Neck trachea midline, no thyromegaly Respiratory normal respiratory effort, lungs clear to auscultation Cardiovascular RRR, no murmur, no edema Chest (Breasts) Chest: normal inspection of chest Gastrointestinal (Abdomen) normal bowel sounds, soft, nontender, no hepatosplenomegaly Musculoskeletal Extremities: extremities normal to inspection; no cyanosis and no clubbing Skin no rashes, warm and dry Neurologic moves all extremities and awake; no focal motor deficits Psychiatric A+Ox3, euthymic affect Lymphatic no lymphedema Discharge Data Allergies Allergy/AdvReac Type Severity Reaction Status Date / Time adhesive Allergy Unknown PULLS SKIN Verified 03/09/21 16:40 OFF Penicillins Allergy Unknown TONGUE Verified 03/09/21 16:40 SWELLING azithromycin AdvReac Unknown Nausea Verified 03/09/21 16:40 Consultations 03/09/21 19:23 ED Decision to Admit Stat Ordered Studies 03/09/21 16:40 CT abd pelvis wo con Stat Abdomen/Pelvis CT 03/09/21 16:40 CT SCAN OF THE ABDOMEN AND PELVIS WITHOUT IV CONTRAST CLINICAL HISTORY: Generalized abdominal pain. Nausea and vomiting. COMPARISON STUDY: Abdominal CT dated 02/27/2021. TECHNIQUE: CT scan of the abdomen and pelvis is performed from the lung bases to the proximal femora. Images are reviewed in the axial, sagittal, and coronal planes. IV contrast was not administered for this examination. Note that the examination is suboptimal without IV contrast. A dose lowering technique was utilized adhering to the principles of ALARA. CT DOSE: 935.84 mGycm FINDINGS: Lung bases: The heart is normal in size and without pericardial effusion. The coronary arteries are densely calcified. The lung bases are clear noting bibasilar scarring/atelectasis. A small hiatal hernia is noted. Liver: The unenhanced liver is normal in size, contour, and attenuation. There is mild central intrahepatic biliary ductal dilatation. Gallbladder: Surgically absent noting clips in the gallbladder fossa. Spleen: Normal in size and attenuation. Pancreas: The unenhanced pancreas is moderately atrophic and grossly unremarkable. Adrenal glands: A 2.1 cm left adrenal adenoma is unchanged. The right adrenal gland is normal in appearance. Kidneys: The unenhanced kidneys are normal in size and without hydronephrosis. There are 2 nonobstructing right renal calculi which measure up to 3 mm. No left renal calculi are seen. A 1.9 cm hyperdense cyst is again seen in the right lower pole. Small simple 0cysts measure up to 13 mm. Additional subcentimeter cortical hypodensities also likely represent cysts but are too small for definitive characterization. There is asymmetric left-sided perinephric stranding is compared to left. Abdominal vasculature: There is advanced atherosclerotic calcification as well as ectasia of the abdominal aorta. Bowel: There is moderate colonic diverticulosis without CT evidence of acute diverticulitis. No bowel obstruction is seen. Liquid stool is noted in the colon. The appendix is not identified and reported surgically absent. Peritoneum: There is no intraperitoneal free air or abdominal ascites. Lymphadenopathy: None. Pelvic viscera: The bladder is normal as visualized. The uterus is surgically absent. No adnexal lesion is seen. There is a small fat-containing right inguinal hernia. Skeletal structures: The skeletal structures are osteopenic. There is unchanged appearance of an acute to subacute superior endplate compression fracture of L3 with [id number] loss of height. There is mild paravertebral edema and minimally retropulsed fragments. No additional fracture is identified. No lytic or blastic lesions are seen. There are healed left-sided rib fractures. IMPRESSION: 1. There is unchanged appearance of an acute to subacute superior endplate compression fracture of L3 with [id number] loss of height as compared to 02/27/2021. 2. Liquid stool is noted in the colon. Correlate clinically for evidence of a diarrheal illness. 3. Slightly asymmetric left-sided perinephric stranding is unchanged and of indeterminant etiology/significance. There is no obstructing left ureteral stone or hydronephrosis. Correlate with clinical findings and urinalysis. 4. Tiny nonobstructing right renal calculi. 5. Moderate colonic diverticulosis without CT evidence of acute diverticulitis. 6. Additional findings as above. ACT 112: Negative or not required by law. Electronically signed by: Jaxon Felipe M.D. 03/09/2021 5:03 PM Hospital Course (1) Palpitations: 71-year-old female with multiple medical problems presenting with nausea, dry heaving as well as 2 episodes of dizziness/lightheadedness and palpitations. Patient with brief run of narrow complex tach arrhythmia noted in the ER possibly associated with symptoms. With presyncope likely related to dehydration Admitted to medical with telemetry and had no significant arrhythmias on monitoring Theophylline level is elevated at 22-theophylline dose will be reduced to 300 mg once daily on discharge-needs repeat theophylline level in 1 week with PCP IV fluid and electrolyte repletion given and she felt significantly improved Renal function at baseline Serial troponin negative x2 Echocardiogram performed here with normal LVEF, mild aortic valve sclerosis without stenosis, normal RVSP No symptoms seem to be related to her chronic persistent diarrhea-see below (2) Microscopic colitis: Diagnosed with microscopic colitis at recent hospitalization after having colonoscopy She was prescribed budesonide 9 mg daily, but reports that she never picked up the medication as it was going to cost her $500 I have asked our nurse navigator to get this approved with a prior authorization-this was completed and the patient will fern picker the medication after discharge Please follow-up with GI within 2 weeks (3) ACTH deficiency: Chronic. Stable. Mild hypokalemia-replaced and resolved. No clinical evidence of adrenal crisis Continue hydrocortisone 20 mg p.o. every morning and 10 mg p.o. every afternoon. Continue follow-up with PCP and endocrinology (4) Chronic renal failure, stage 3 (moderate): BUN and creatinine at baseline or improved Avoid nephrotoxic agents (5) Depression: Chronic. Stable. Continue sertraline 100 mg p.o. every morning (6) COPD (chronic obstructive pulmonary disease): Chronic. Stable. Patient denies shortness of breath, cough, wheeze Continue albuterol as needed Continue ipratropium as needed -Decreasing theophylline dose as above to 3 mg daily, follow-up 1 week (7) Diabetes: Chronic. Hemoglobin A1c on December 31, 2020 = 7.7 -ISS was given -Goal blood sugar 100 - 140 Is not on medications at home Follow-up with PCP (8) Hypothyroidism: TSH 9.2 but free T4 normal She has central hypothyroidism Continue Synthroid 112 mcg p.o. daily and follow-up with PCP and endocrinology ProphylaxisLovenox 30, Protonix CodeDNR/DNI per discussion with patient Dispositionstable for discharge to home Total Time Total Time Spent Total Time Spent (In Minutes): 35 minutes Discharge Plan Discharge Items Patient Disposition: Home - Home Health Services Reason For Visit: ARRHYTHMIA Discharge Diagnosis: Presyncope, Nausea/vomiting/Diarrhea, Theophylline toxicity Condition on Discharge: Fair Activity: As commented below Bathing: No limitations Exercise/Sports: Gradually increase as tolerated Non-emergency contact: Primary Care Provider and Production Stage Manager Call non-emergency contact if: you have any medication questions and your symptoms worsen Follow-up/Referrals: William Kay, DO [Physician] - (Please call to make sure you have a follow up appointment with the GI doctor scheduled within the next month.) Arthur Cruz [Primary Care Provider] - (PLEASE CALL YOUR PRIMARY CARE PROVIDER TO SCHEDULE A DISCHARGE FOLLOW-UP APPOINTMENT WITHIN 1-2 WEEKS.) Diet: Heart Healthy Addtl Attending Provider Instructions: You were admitted with nearly passing out. This is likely due to your episodes of nausea/vomiting and diarrhea causing vasovagal syncope. Also, you were found to have too high of a level of theophylline which might be causing these symptoms. You can continue taking the Lomotil as needed for diarrhea. You had no abnormalities of your heart on Echocardiogram or on the heart monitor while you were here. Please cut your theophylline dose down to 300mg once daily and have your PCP closely monitor your theophylline level in the next 1-2 weeks. If you develop worsening problems with your lungs, please let your doctor know. You were supposed to be taking a medication for your diarrhea called Entocort (budesonide), but you believe it was too expensive at the pharmacy. Our nurse navigator, Ms. Amalia Israel, will be working on getting this cost down so you can afford the medication. Pending Studies at Discharge: No Stand-Alone Forms: My [facility], Smoking Cessation Medications and DC Order Prescriptions: Continued sertraline [Zoloft] 100 mg tablet 100 mg PO QAM RF: 0 folic acid 1 mg tablet 1 mg PO QAM RF: 0 Combivent Respimat 20-100 mcg/actuation Mist 1 puff INHALATION Q4H PRN (Reason: Shortness Of Breath Or Wheezing) RF: 0 furosemide [Lasix] 20 mg tablet 20 mg PO DAILY PRN (Reason: Swelling) RF: 0 levothyroxine [Synthroid] 112 mcg tablet 112 mcg PO DAILYBB RF: 0 albuterol sulfate 2.5 mg /3 mL (0.083 %) solution for nebulization 2.5 mg continuous nebulization Q4 PRN (Reason: cough,sob) RF: 0 tramadol 50 mg Tablet 50 mg PO Q4H PRN (Reason: pain) 30 Days Qty: 30 RF: 0 famotidine 20 mg Tablet 20 mg PO BID 30 Days Qty: 60 RF: 0 hydrocortisone [Cortef] 10 mg Tablet 10 mg PO PM 30 Days Qty: 30 RF: 3 hydrocortisone [Cortef] 10 mg Tablet 20 mg PO QAM 30 Days Qty: 60 RF: 3 budesonide [Entocort EC] 3 mg capsule,delayed,extend.release 9 mg PO QAM 30 Days Qty: 90 RF: 0 acetaminophen [Tylenol] 325 mg Tablet 650 mg PO QID PRN (Reason: Pain) RF: 0 diphenoxylate-atropine 2.5-0.025 mg tablet 1 tab PO Q3H PRN (Reason: Diarrhea) RF: 0 esomeprazole magnesium 20 mg capsule,delayed release(DR/EC) 20 mg PO PM RF: 0 Changed theophylline 300 mg tablet extended release 12 hr 300 mg PO DAILY Qty: 0 RF: 0 Discontinued cephalexin 250 mg Capsule 250 mg PO BID 10 Days Qty: 20 RF: 0 cephalexin 250 mg capsule 250 mg PO BID RF: 0 Discharge Orders: Discharge Order (Routine); Ordered 03/10/21 Ordered By: Natasha Manriquez Admission Data Admit Date/Time: 03/09/21 20:07 Attending Provider: Natasha Manriquez Admit Provider: Cherelle Martinez Primary Care Provider: Arthur Cruz Other Providers: Cherelle Martinez Other Interventions: Discharge Summary Assessment (RN) Last Done: 03/10/21 17:27 Coding Level of Care Code 13783 OBS Care - Discharge Diagnoses Palpitations R00.2 ACTH deficiency E23.6 Chronic renal failure, stage 3 (moderate) N18.30 Chronic kidney disease stage 3 subtype: unspecified whether 3a or 3b Depression F32.9 COPD (chronic obstructive pulmonary disease) J44.9 COPD type: unspecified COPD Diabetes E11.9 Hypothyroidism E03.9 Microscopic colitis K52.839
--- NOTE | 2021-03-11 15:52 | Electrocardiogram Report ---
Test Reason : Blood Pressure : / mmHG Vent. Rate : 091 BPM Atrial Rate : 091 BPM P-R Int : 128 ms QRS Dur : 092 ms QT Int : 356 ms P-R-T Axes : 073 006 154 degrees QTc Int : 437 ms Poor data quality, interpretation may be adversely affected Normal sinus rhythm Abnormal ECG When compared with ECG of 27-FEB-2021 11:45, T wave inversion now evident in Inferior leads T wave inversion now evident in Anterolateral leads Confirmed by Javier Johnston ([id number]) on 03/11/2021 3:52:08 PM Referred By: REFERRED SELF Confirmed By:Javier Johnston
--- NOTE | 2021-03-11 15:59 | Electrocardiogram Report ---
Test Reason : Blood Pressure : / mmHG Vent. Rate : 074 BPM Atrial Rate : 074 BPM P-R Int : 134 ms QRS Dur : 096 ms QT Int : 392 ms P-R-T Axes : 052 -04 237 degrees QTc Int : 435 ms Normal sinus rhythm T wave abnormality, consider anterolateral ischemia Abnormal ECG When compared with ECG of 09-MAR-2021 15:20, (unconfirmed) No significant change was found Confirmed by Javier Johnston ([id number]) on 03/11/2021 3:59:18 PM Referred By: REFERRED SELF Confirmed By:Javier Johnston
== END 2021-03-10 18:54 | disposition home health service (06) ==
LOC: 2N 15:12 → ED 15:12 → SUATTDRO 20:07 → 2N 20:54
DX: Z88.1 Allergy status to other antibiotic agents; Z88.0 Allergy status to penicillin; Z79.899 Other long term (current) drug therapy; R11.0 Nausea; R00.2 Palpitations; E03.9 Hypothyroidism, unspecified; F32.9 Major depressive disorder, single episode, unspecified; Z87.891 Personal history of nicotine dependence; J44.9 Chronic obstructive pulmonary disease, unspecified; K52.839 Microscopic colitis, unspecified; N18.30 Chronic kidney disease, stage 3 unspecified; E27.1 Primary adrenocortical insufficiency; Z86.16 Personal history of COVID-19; E87.6 Hypokalemia; R55 Syncope and collapse; Z79.51 Long term (current) use of inhaled steroids; E11.9 Type 2 diabetes mellitus without complications

== ENCOUNTER 2021-03-18 13:41 | Observation (INO) ==
[2021-03-18 14:14] LABS: Basophils # (auto) 0.02 K/uL (0-0.2); Basophils % (auto) 0.3 %; Eosinophils # (auto) 1.02 K/uL (0-0.5); Eosinophils % (auto) 14.9 %; Hematocrit (blood only) 36.3 % (37-47); Immature Granulocytes # (auto) 0.01 K/uL (0.00-0.02); Immature Granulocytes % (auto) 0.1 %; Lymphocytes # (auto) 1.86 K/uL (1.2-3.4); Lymphocytes % (auto) 27.2 %; Mean Corpuscular Hemoglobin 28.1 pg (25-34); Mean Corpuscular Hgb Conc 33.1 g/dL (32-36); Mean Platelet Volume 10.5 fL (7.4-10.4); Monocytes # (auto) 0.64 K/uL (0.11-0.59); Monocytes % (auto) 9.4 %; Neutrophils # (auto) 3.28 K/uL (1.4-6.5); Neutrophils % (auto) 48.1 %; Platelet Count 192 K/uL (130-400); RDW Coefficient of Variation 16.6 % (11.5-14.5); RDW Standard Deviation 51.6 fL (36.4-46.3); Red Blood Count 4.27 M/uL (4.2-5.4); White Blood Count 6.83 K/uL (4.8-10.8)
[2021-03-18 14:36] LABS: Albumin Globulin Ratio 0.9 (0.9-2); Albumin Level 3.4 gm/dl (3.4-5.0); BUN Creatinine Ratio 5.8 (10-20); Bilirubin,Total 1.4 mg/dl (0.2-1); Calcium 9.1 mg/dl (8.5-10.1); Creatinine Clr Calc Pharmacy 25.9 ml/min; Est GFR (African American) 26.3 ml/min; Est GFR (Non-African American) 22.7 ml/min; Globulin 3.7 gm/dl (2.5-4.0); Potassium 2.8 mmol/L (3.5-5.1); Total Protein 7.1 gm/dl (6.4-8.2)
[2021-03-18] MEDS ORDERED: SODIUM CHLORIDE 0.9% 1000ML 500 ML IV ONE (15:50)
[2021-03-18] MEDS ORDERED: ONDANSETRON INJ 2 MG/ML 2 ML VIAL IV STA (15:50)
[2021-03-18] MEDS ORDERED: POTASSIUM CHLORIDE / WTR 10 MEQ/100 ML PLCT IV ONE (15:50)
[2021-03-18] MEDS ORDERED: SODIUM CHLORIDE 0.9% 1000ML 1,000 ML IV STA (15:50)
[2021-03-18] MEDS ORDERED: ALUMINUM/MAGNESIUM SUSP 18 ML, LIDOCAINE VISCOUS 2% SOLN 6 ML, BARCODE IDENTIFIER 1 EA PO ONE (15:50)
--- NOTE | 2021-03-18 15:50 | Emergency Department Note ---
Impression & Plan Chest pain, CHRISTIAN (acute kidney injury), Nausea, vomiting, and diarrhea, Hypokalemia ED Provider Note INFORMANT: Patient ED PROVIDER(S): Hugh Ellison MD CHIEF COMPLAINT: Nausea and vomiting PLAN: Disposition: Admitted Condition: Good Outpatient prescription management: none Referral: None MEDICAL DECISION MAKING: Patient has presented with complaints of chest discomfort as well as nausea and vomiting. She also noted diarrhea. An IV was established. The patient was hydrated. She was treated with Zofran. She was also given a GI cocktail. The patient had a negative CBC. Her chemistry panel revealed hypokalemia with potassium of 2.8. Her creatinine was minimally elevated. The patient has pancolitis on CT imaging. She was treated with IV potassium. Urinalysis was negative. ECG was unremarkable with nonspecific ST changes. The patient will need further management in the hospital. Consultation was made with the [facility] any hospitalist service. The patient was evaluated in the ER and admitted for further management. Triage Nursing notes reviewed and agree them. Vital Signs: reviewed and remarkable for no significant abnormalities Differential diagnosis: Cardiac ischemia, aortic dissection, pulmonary embolism, pneumothorax, pneumonia, pericarditis, myocarditis, esophageal rupture, GERD, cholecystitis, pancreatitis, musculoskeletal, as well as other pathologies. Diagnostics interpreted by me: ECG: Twelve-lead ECG reveals normal sinus rhythm at [address] changes. No ST elevation or depression. No PACs or PVCs. Cardiac Monitoring: Cardiac monitoring ordered by me: The patient was placed on continuous cardiac monitoring and observed. It revealed a normal sinus rhythm at 83 beats per minute without ectopy or evidence of dysrhythmia. Imaging studies: CT imaging is consistent with a pancolitis. HPI: The patient is a 75 year old female who presents to the Emergency Room with complaints of nausea and and vomiting. This started this morning, associated chest pain was present with the belching and is described as reflux-like and burning. She has had issues like this for a couple of months. The patient also notes the following associated symptoms, nausea, vomiting and diarrhea. The patient has found no relieving factors. Current pain is rated as 2/10. EMS gave zofran which helped. Pt denies LOC, headache, fevers, chills, diaphoresis, visual changes, neck pain, abdominal pain, back pain, melena, hematochezia, urinary symptoms, numbness, weakness, lymphadenopathy, rash, or other complaints. ROS: See above HPI for pertinent positives & negatives. A total of 10 systems reviewed and were otherwise negative. PAST MEDICAL HISTORY:See Below , chronic diarrhea and vomiting PAST SURGICAL HISTORY:See Below, yvon loco FAMILY HISTORY:See Below SOCIAL HISTORY:See Below, no tobacco HOME MEDICATIONS:See Below ALLERGIES:See Below VITALS:See Below PHYSICAL EXAMINATION: GENERAL: Awake, alert, uncomfortable-appearing, in no distress HENT: Normocephalic, atraumatic. Oropharynx unremarkable. EYES: Normal conjunctiva. Sclera non-icteric. NECK: Inspection normal. Non-tender. Supple. No nuchal rigidity. FROM. No masses. RESPIRATORY: Clear to auscultation. No wheezes. No rales. Normal respiratory effort. CARDIAC: Normal rate. Normal rhythm. No murmurs. No rubs. Extremities warm and well perfused. Pulses equal. No JVD. GI: Soft, non-distended. No tenderness to palpation. No rebound or guarding. No masses. RECTAL: Deferred. MUSCULOSKELETAL: Atraumatic. Chest examination reveals no tenderness. The back is symmetrical on inspection without obvious abnormality. There is no CVA tende rness to palpation. No joint edema. LOWER EXTREMITIES: Calves are equal size bilaterally and non-tender. No edema. No discoloration. NEURO: Normal sensorium. No sensory or motor deficits noted. SKIN: No rash or jaundice noted. Hugh Ellison MD Past Med/Surg History Medical History Abdominal pain ACTH deficiency Acute kidney injury superimposed on chronic kidney disease Adrenal adenoma Arthritis Chronic renal failure, stage 3 (moderate) COPD (chronic obstructive pulmonary disease) COVID-19 05/2020 Depression Diabetes Diffuse abdominal pain Fever Hypoxia Lung cancer 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 Neutropenic fever Orthostatic hypotension Right knee DJD Secondary adrenal insufficiency Vomiting Surgical History Hx of right knee surgery Family History Mother Heart disease Father , in his 90s - old age COPD (chronic obstructive pulmonary disease) Other Diabetes Hypertension Lung disease Social History Smoking Status: Former smoker Tobacco Type: Cigarettes Age Started Using Tobacco: 19; Age Quit Using Tobacco: 75; packs per day: 0.5; Second Hand Exposure: No; Hx Alcohol Use: No Hx Substance Use: No Preferred Language: Greenlandic Communication Ability: Effective 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 Required: No Beliefs That Will Affect Care: None marital status: / Current Living Situation: Family Current Living Situation Comment: grand daughter stays with PT current occupational status: retired How many Children do You have: 4 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: 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 Feels Safe at Home: Yes Assistive Devices: Glasses Allergies Allergies Allergy/AdvReac Type Severity Reaction Status Date / Time adhesive Allergy Unknown PULLS SKIN Verified 03/09/21 16:40 OFF Penicillins Allergy Unknown TONGUE Verified 03/09/21 16:40 SWELLING azithromycin AdvReac Unknown Nausea Verified 03/09/21 16:40 Home Meds Home Medications Medication Instructions Recorded Confirmed folic acid 1 mg tablet 1 mg PO QAM 07/17/18 03/18/21 ipratropium 20 mcg-albuterol 100 1 puff INHALATION Q4H PRN 07/17/18 03/18/21 mcg/actuation mist for inhalation (Combivent Respimat) sertraline 100 mg tablet (Zoloft) 100 mg PO QAM 07/17/18 03/18/21 furosemide 20 mg tablet (Lasix) 20 mg PO DAILY PRN 06/28/20 03/18/21 albuterol sulfate 2.5 mg CONTINUOUS NEBULIZATION Q4 01/15/21 03/18/21 PRN levothyroxine 112 mcg tablet 112 mcg PO DAILYBB 02/09/21 03/18/21 (Synthroid) acetaminophen 325 mg tablet 650 mg PO QID PRN 03/09/21 03/18/21 (Tylenol) diphenoxylate-atropine 2.5 1 tab PO Q3H PRN 03/09/21 03/18/21 mg-0.025 mg tablet esomeprazole magnesium 20 mg 20 mg PO PM 03/09/21 03/18/21 capsule,delayed release Previous Rx's Medication Instructions Recorded budesonide 3 mg 9 mg PO QAM 30 Days #90 ea 03/03/21 capsule,delayed,extended release (Entocort EC) famotidine 20 mg tablet 20 mg PO BID 30 Days #60 tab 03/03/21 hydrocortisone 10 mg tablet 10 mg PO PM 30 Days #30 tab 03/03/21 (Cortef) hydrocortisone 10 mg tablet 20 mg PO QAM 30 Days #60 tab 03/03/21 (Cortef) tramadol 50 mg tablet 50 mg PO Q4H PRN 30 Days #30 tab 03/03/21 theophylline 300 mg 300 mg PO DAILY #0 tab 03/10/21 tablet,extended release,12 hr Results & Data (ED) Vital Signs Vital Signs - 24 hr 03/18/21 13:49 03/18/21 13:51 03/18/21 14:00 Temperature 36.8 C Temperature Source Oral Pulse Rate 91 H 93 H 96 H Pulse Rate from SpO2 Sensor 91 H 96 H Respiratory Rate 16 18 15 Respiratory Effort / Characteristics Non-Labored Respiratory Depth Normal Blood Pressure 113/74 113/74 113/60 Blood Pressure Mean 87 87 77 Pulse Oximetry 95 95 96 Oxygen Delivery Method Room Air Sepsis Recent Fever Within 48 Hours No Sepsis New/Unexplained Change in Mental Status No Sepsis Action Taken by Nursing No Action Required 03/18/21 14:30 03/18/21 15:00 03/18/21 15:30 Temperature Temperature Source Pulse Rate 91 H 109 H 94 H Pulse Rate from SpO2 Sensor 91 H 107 H 95 H Respiratory Rate 20 23 28 H Respiratory Effort / Characteristics Respiratory Depth Blood Pressure 143/82 H 151/85 H 130/80 Blood Pressure Mean 102 107 96 Pulse Oximetry 90 92 Oxygen Delivery Method Sepsis Recent Fever Within 48 Hours Sepsis New/Unexplained Change in Mental Status Sepsis Action Taken by Nursing 03/18/21 16:00 03/18/21 16:36 03/18/21 17:00 Temperature Temperature Source Pulse Rate 94 H 91 H 89 Pulse Rate from SpO2 Sensor 94 H Respiratory Rate 19 19 27 H Respiratory Effort / Characteristics Respiratory Depth Blood Pressure 135/88 Blood Pressure Mean 103 Pulse Oximetry 91 Oxygen Delivery Method Sepsis Recent Fever Within 48 Hours Sepsis New/Unexplained Change in Mental Status Sepsis Action Taken by Nursing 03/18/21 17:30 03/18/21 20:28 03/18/21 20:30 Temperature Temperature Source Pulse Rate 88 104 H 91 H Pulse Rate from SpO2 Sensor 98 H 90 Respiratory Rate 21 19 24 Respiratory Effort / Characteristics Respiratory Depth Blood Pressure 157/82 H Blood Pressure Mean 107 Pulse Oximetry 96 94 Oxygen Delivery Method Sepsis Recent Fever Within 48 Hours Sepsis New/Unexplained Change in Mental Status Sepsis Action Taken by Nursing Laboratory Data Result diagrams: 03/18/21 14:01 03/18/21 14:01 Lab Results 03/18/21 03/18/21 03/18/21 Range/Units 14:01 14: 16:06 WBC 6.83 (4.8-10.8) K/uL RBC 4.27 (4.2-5.4) M/uL Hgb 12.0 (12.0-16.0) g/dL Hct 36.3 L (37-47) % MCV 85.0 (80-100) fL MCH 28.1 (25-34) pg MCHC 33.1 (32-36) g/dL RDW Std Deviation 51.6 H (36.4-46.3) fL RDW Coeff of Maye 16.6 H (11.5-14.5) % Plt Count 192 (130-400) K/uL MPV 10.5 H (7.4-10.4) fL Immature Gran % (Auto) 0.1 % Neut % (Auto) 48.1 % Lymph % (Auto) 27.2 % [place] % (Auto) 9.4 % Eos % (Auto) 14.9 % Baso % (Auto) 0.3 % Neut # (Auto) 3.28 (1.4-6.5) K/uL Lymph # (Auto) 1.86 (1.2-3.4) K/uL [place] # (Auto) 0.64 H (0.11-0.59) K/uL Eos # (Auto) 1.02 H (0-0.5) K/uL Baso # (Auto) 0.02 (0-0.2) K/uL Immature Gran # (Auto) 0.01 (0.00-0.02) K/uL Sodium 139 (136-145) mmol/L Potassium 2.8 L (3.5-5.1) mmol/L Chloride 107 (98-107) mmol/L Carbon Dioxide 23 (21-32) mmol/L Anion Gap 9.0 (3-11) BUN 12 (7-18) mg/dl Creatinine 2.07 H (0.6-1.2) mg/dl Est Cr Clr Drug Dosing 25.9 ml/min Est GFR ( Amer) 26.3 ml/min Est GFR (Non-Af Amer) 22.7 ml/min BUN/Creatinine Ratio 5.8 L (10-20) Glucose 157 H (70-99) mg/dl Calcium 9.1 (8.5-10.1) mg/dl Total Bilirubin 1.4 H (0.2-1) mg/dl AST 25 (15-37) U/L ALT 14 (12-78) U/L Alkaline Phosphatase 120 H (45-117) U/L Total Protein 7.1 (6.4-8.2) gm/dl Albumin 3.4 (3.4-5.0) gm/dl Globulin 3.7 (2.5-4.0) gm/dl Albumin/Globulin Ratio 0.9 (0.9-2) Lipase 77 (73-393) U/L Specimen Hemolysis Urine Color Urine Appearance (Clear) Urine pH (4.5-7.5) Ur Specific [place] (1.000-1.030) Urine Protein (Negative) Urine Glucose (UA) (Negative) Urine Ketones (Negative) Urine Blood (Negative) Urine Nitrite (Negative) Urine Bilirubin (Negative) Urine Urobilinogen (Negative) Ur Leukocyte Esterase (Negative) COVID-19 Eval Order Covid19 at [facility] SARS-CoV-2 (PCR) (Negative) 03/18/21 03/18/21 Range/Units 16:06 18:24 WBC (4.8-10.8) K/uL RBC (4.2-5.4) M/uL Hgb (12.0-16.0) g/dL Hct (37-47) % MCV (80-100) fL MCH (25-34) pg MCHC (32-36) g/dL RDW Std Deviation (36.4-46.3) fL RDW Coeff of Maye (11.5-14.5) % Plt Count (130-400) K/uL MPV (7.4-10.4) fL Immature Gran % (Auto) % Neut % (Auto) % Lymph % (Auto) % [place] % (Auto) % Eos % (Auto) % Baso % (Auto) % Neut # (Auto) (1.4-6.5) K/uL Lymph # (Auto) (1.2-3.4) K/uL [place] # (Auto) (0.11-0.59) K/uL Eos # (Auto) (0-0.5) K/uL Baso # (Auto) (0-0.2) K/uL Immature Gran # (Auto) (0.00-0.02) K/uL Sodium (136-145) mmol/L Potassium (3.5-5.1) mmol/L Chloride (98-107) mmol/L Carbon Dioxide (21-32) mmol/L Anion Gap (3-11) BUN (7-18) mg/dl Creatinine (0.6-1.2) mg/dl Est Cr Clr Drug Dosing ml/min Est GFR ( Amer) ml/min Est GFR (Non-Af Amer) ml/min BUN/Creatinine Ratio (10-20) Glucose (70-99) mg/dl Calcium (8.5-10.1) mg/dl Total Bilirubin (0.2-1) mg/dl AST (15-37) U/L ALT (12-78) U/L Alkaline Phosphatase (45-117) U/L Total Protein (6.4-8.2) gm/dl Albumin (3.4-5.0) gm/dl Globulin (2.5-4.0) gm/dl Albumin/Globulin Ratio (0.9-2) Lipase (73-393) U/L Specimen Hemolysis Urine Color Yellow Urine Appearance Clear (Clear) Urine pH 5.0 (4.5-7.5) Ur Specific [place] 1.011 (1.000-1.030) Urine Protein Negative (Negative) Urine Glucose (UA) Negative (Negative) Urine Ketones Negative (Negative) Urine Blood Negative (Negative) Urine Nitrite Negative (Negative) Urine Bilirubin Negative (Negative) Urine Urobilinogen Negative (Negative) Ur Leukocyte Esterase Negative (Negative) COVID-19 Eval Order SARS-CoV-2 (PCR) NEGATIVE (Negative) Administered Medications Sodium Chloride (Nss 1000ml) 1,000 mls @ 125 mls/hr IV .Q8H STA Stop: 03/18/21 23:49 Last Infusion: 03/18/21 22:26 Dose: 0 mls/hr Documented by: [id number] Admin: 03/18/21 16:41 Dose: 125 mls/hr Documented by: [id number] Insulin Aspart (Insulin Aspart 100 Units/Ml 3 Ml Pen) 0 units SC ACHS SIMONA Stop: 04/17/21 22:44 Last Admin: 03/18/21 23:06 Dose: 2 units Documented by: [id number] Cosigned by: [id number] Discontinued Medications Al Hydrox/Mg Hydrox/Simethicone (Aluminum/Magnesium Susp 30 Ml Udc) Confirm Administered Dose 30 ml .ROUTE .STK-MED ONE Stop: 03/18/21 16:38 Last Admin: 03/18/21 16:40 Dose: Not Given Documented by: [id number] Al Hydrox/Mg Hydrox/Simethicone 18 ml/ Lidocaine HCl 6 ml/ BARCODE IDENTIFIER 1 ea 0 ml PO ONE ONE Stop: 03/18/21 15:51 Last Admin: 03/18/21 16:39 Dose: 24 ml Documented by: [id number] Hydrocortisone Sodium Succinate (Hydrocortisone Sod Succinate 100 Mg/2 Ml Vial) 100 mg IV NOW STA Stop: 03/18/21 20:26 Last Admin: 03/18/21 21:35 Dose: 100 mg Documented by: [id number] Potassium Chloride (K Fuentes / Wtr) 10 meq in 100 mls @ 100 mls/hr IV ONE ONE Stop: 03/18/21 16:49 Last Infusion: 03/18/21 17:03 Dose: 0 mls/hr Documented by: [id number] Admin: 03/18/21 15:58 Dose: 100 mls/hr Documented by: [id number] Sodium Chloride (Nss 1000ml) 500 mls @ 999 mls/hr IV .Q31M ONE Stop: 03/18/21 16:20 Last Infusion: 03/18/21 16:35 Dose: 0 mls/hr Documented by: [id number] Admin: 03/18/21 15:58 Dose: 999 mls/hr Documented by: [id number] Lidocaine HCl (Lidocaine Viscous 2% 15 Ml Udc) Confirm Administered Dose 15 ml .ROUTE .STK-MED ONE Stop: 03/18/21 16:38 Last Admin: 03/18/21 16:40 Dose: Not Given Documented by: [id number] Ondansetron HCl (Ondansetron Inj 2 Mg/Ml 2 Ml Vial) 4 mg IV NOW STA Stop: 03/18/21 15:51 Last Admin: 03/18/21 15:57 Dose: 4 mg Documented by: [id number] Imaging Data Radiologist's Impression: Abdomen/Pelvis CT 03/18/21 15:[address] WITHOUT CONTRAST CT DOSE: 639.72 mGy.cm HISTORY: nausea, vomiting, generalized abd pain, diarrhea TECHNIQUE: Multiaxial CT images of the abdomen and pelvis were performed without contrast. A dose lowering technique was utilized adhering to the principles of ALARA. COMPARISON STUDY: Abdomen and pelvis CT 03/09/2021. FINDINGS: A few bibasilar linear densities consistent with subsegmental atelecta sis. No pneumoperitoneum. No pneumatosis. No change in the acute/subacute moderate superior endplate compression fracture at L3. Trace pericardial fluid anteriorly. Cholecystectomy. The unenhanced liver, spleen, right adrenal gland, and pancreas are unremarkable. There are 2 punctate stones within the right kidney. Stable bilateral renal hypo and hyperdense lesions. No left renal calculi. No ureteral calculi. No hydronephrosis. Mild bilateral perinephric edema, unchanged. Stable left adrenal gland adenoma. No retroperitoneal lymphadenopathy. Moderate calcified plaque within the normal caliber abdominal aorta. The bladder is unremarkable. Prior hysterectomy. No pelvic free fluid. Fluid-filled colon. There is mild thickening throughout the colon with minimal pericolonic fat stranding. Findings are consistent with a mild nonspecific pancolitis. Extensive colonic diverticulosis. No evidence for acute diverticulitis. No evidence for bowel obstruction. IMPRESSION: 1. Mild nonspecific pancolitis. This favors an infectious or inflammatory process. 2. Colonic diverticulosis. No evidence for acute diverticulitis. 3. Stable right-sided nephrolithiasis. No ureteral stones. No hydronephrosis. 4. No evidence for bowel obstruction. 5. No change in the acute to subacute L3 compression fracture. ACT 112: Negative or not required by law. Electronically signed by: Ananda Segovia M.D. 03/18/2021 4:47 PM Discharge Plan Visit Data Chief Complaint: GI Assessment Stated Complaint: CHEST PAIN, AB PAIN, NAUSEA, VOMITING, DIARRHEA ED Provider: Hugh Ellison Discharge Problem: Chest pain, CHRISTIAN (acute kidney injury), Nausea, vomiting, and diarrhea, Hypokalemia Patient Disposition: Admitted As Inpatient Discharge Instructions Interventions: ED Discharge Assessment Last Done: 03/18/21 21:31
[2021-03-18] MEDS ORDERED: ALUMINUM/MAGNESIUM SUSP 30 ML UDC ONE (16:37)
[2021-03-18] MEDS ORDERED: LIDOCAINE VISCOUS 2% 15 ML UDC ONE (16:37)
--- NOTE | 2021-03-18 16:48 | CT Scan Report ---
ABDOMEN AND PELVIS CT WITHOUT CONTRAST CT DOSE: 639.72 mGy.cm HISTORY: nausea, vomiting, generalized abd pain, diarrhea TECHNIQUE: Multiaxial CT images of the abdomen and pelvis were performed without contrast. A dose lo wering technique was utilized adhering to the principles of ALARA. COMPARISON STUDY: Abdomen and pelvis CT 03/09/2021. FINDINGS: A few bibasilar linear densities consistent with subsegmental atelectasis. No pneumoperiton eum. No pneumatosis. No change in the acute/subacute moderate superior endplate compression fracture at L3. Trace pericardial fluid anteriorly. Cholecystectomy. The unenhanced liver, spleen, right adren al gland, and pancreas are unremarkable. There are 2 punctate stones within the right kidney. Stable bilateral renal hypo and hyperdense lesions. No left renal calculi. No ureteral calculi. No hydroneph rosis. Mild bilateral perinephric edema, unchanged. Stable left adrenal gland adenoma. No retroperito iris lymphadenopathy. Moderate calcified plaque within the normal caliber abdominal aorta. The bladde r is unremarkable. Prior hysterectomy. No pelvic free fluid. Fluid-filled colon. There is mild thicke maricarmen throughout the colon with minimal pericolonic fat stranding. Findings are consistent with a mild nonspecific pancolitis. Extensive colonic diverticulosis. No evidence for acute diverticulitis. No e vidence for bowel obstruction. IMPRESSION: 1. Mild nonspecific pancolitis. This favors an infectious or inflammatory process. 2. Colonic diverticulosis. No evidence for acute diverticulitis. 3. Stable right-sided nephrolithiasis. No ureteral stones. No hydronephrosis. 4. No evidence for bowel obstruction. 5. No change in the acute to subacute L3 compression fracture. ACT 112: Negative or not required by law. Electronically signed by: Ananda Segovia M.D. 03/18/2021 4:47 PM
[2021-03-18 18:36] LABS: Appearance Urine Clear (Clear); Bilirubin Urine Negative (Negative); Blood Urine Negative (Negative); Color Urine Yellow; Glucose Urine UA Negative (Negative); Ketones Urine Negative (Negative); Leukocyte Esterase Urine Negative (Negative); Nitrite Urine Negative (Negative); Protein Urine Negative (Negative); Specific Gravity Urine 1.011 (1.000-1.030); Urobilinogen Urine Negative (Negative)
[2021-03-18] MEDS ORDERED: HYDROCORTISONE SOD SUCCINATE 100 MG/2 ML VIAL IV STA (20:25)
--- NOTE | 2021-03-18 20:36 | History & Physical Report ---
Date of Service March 18, 2021 Assessment & Plan (1) Microscopic colitis: Plan: CT shows a mild pancolitis- Continue Entocort EC Follow stool culture and sensitivity, C. difficile studies Full liquid diet We will be placing on stress dose steroids for adrenal insufficiency Consult gastroenterology (2) Secondary adrenal insufficiency: Plan: Hold oral Cortef Hydrocortisone 100 mg IV every 8 hours, first dose now (3) Hypothyroidism: Plan: Continue levothyroxine 112 mcg daily (4) Depression: Plan: Continue sertraline 100 mg daily (5) Diabetes: Plan: Diabetes- Glucose 157 upon admission Placed on Accu-Cheks before meals and at bedtime with NovoLog coverage per scale (6) COPD (chronic obstructive pulmonary disease): Plan: Continue usual inhalers (7) Hypokalemia: Plan: Replace with oral and IV supplementation by the ED, repeat labs in a.m. (8) Acute kidney injury superimposed on chronic kidney disease: Plan: Continue NSS at 80 mils per hour. Creatinine 2.07 upon admission, with range 1.37-2.16 History of Present Illness Chief Complaint: The patient presents to the emergency department with similar complaints to previous, including nausea, vomiting, diarrhea and generalized discomfort Primary Care Provider: Arthur Cruz The patient is a 75-year-old female with a past medical history including microscopic colitis, gout, persistent diarrhea, secondary adrenal insufficiency, ACTH deficiency, adrenal adenoma, hypothyroidism, CKD stage III, hypertension, depression, COPD and diabetes. She presents with recurrent symptoms as noted above Her most recent hospitalizations: 01/16-01/17, 02/09-02/17, 02/21-02/25, 02/27-03/03, 03/09- 03/10, and today. Allergies Allergy/AdvReac Type Severity Reaction Status Date / Time adhesive Allergy Unknown PULLS SKIN Verified 03/09/21 16:40 OFF Penicillins Allergy Unknown TONGUE Verified 03/09/21 16:40 SWELLING azithromycin AdvReac Unknown Nausea Verified 03/09/21 16:40 Home Medications Medication Instructions Recorded Confirmed Type folic acid 1 mg tablet 1 mg PO QAM 07/17/18 03/18/21 History ipratropium 20 mcg-albuterol 100 1 puff INHALATION Q4H PRN 07/17/18 03/18/21 History mcg/actuation mist for inhalation (Combivent Respimat) sertraline 100 mg tablet (Zoloft) 100 mg PO QAM 07/17/18 03/18/21 History furosemide 20 mg tablet (Lasix) 20 mg PO DAILY PRN 06/28/20 03/18/21 History albuterol sulfate 2.5 mg CONTINUOUS NEBULIZATION Q4 01/15/21 03/18/21 History PRN levothyroxine 112 mcg tablet 112 mcg PO DAILYBB 02/09/21 03/18/21 History (Synthroid) budesonide 3 mg 9 mg PO QAM 30 Days #90 ea 03/03/21 03/18/21 Rx capsule,delayed,extended release (Entocort EC) famotidine 20 mg tablet 20 mg PO BID 30 Days #60 tab 03/03/21 03/18/21 Rx hydrocortisone 10 mg tablet 10 mg PO PM 30 Days #30 tab 03/03/21 03/18/21 Rx (Cortef) hydrocortisone 10 mg tablet 20 mg PO QAM 30 Days #60 tab 03/03/21 03/18/21 Rx (Cortef) tramadol 50 mg tablet 50 mg PO Q4H PRN 30 Days #30 tab 03/03/21 03/18/21 Rx acetaminophen 325 mg tablet 650 mg PO QID PRN 03/09/21 03/18/21 History (Tylenol) diphenoxylate-atropine 2.5 1 tab PO Q3H PRN 03/09/21 03/18/21 History mg-0.025 mg tablet esomeprazole magnesium 20 mg 20 mg PO PM 03/09/21 03/18/21 History capsule,delayed release theophylline 300 mg 300 mg PO DAILY #0 tab 03/10/21 03/18/21 Rx tablet,extended release,12 hr Past Med/Surg History Medical History Abdominal pain ACTH deficiency Acute kidney injury superimposed on chronic kidney disease Adrenal adenoma Arthritis Chronic renal failure, stage 3 (moderate) COPD (chronic obstructive pulmonary disease) COVID-19 05/2020 Depression Diabetes Diffuse abdominal pain Fever Hypoxia Lung cancer 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 Neutropenic fever Orthostatic hypotension Right knee DJD Secondary adrenal insufficiency Vomiting Surgical History Hx of right knee surgery Family History Mother Heart disease Father , in his 90s - old age COPD (chronic obstructive pulmonary disease) Other Diabetes Hypertension Lung disease Social History Smoking Status: Former smoker Tobacco Type: Cigarettes Age Started Using Tobacco: 19; Age Quit Using Tobacco: 75; packs per day: 0.5; Second Hand Exposure: No; Hx Alcohol Use: No Hx Substance Use: No Preferred Language: Danish Communication Ability: Effective [employer] Technician Required: No Beliefs That Will Affect Care: None marital status: / Current Living Situation: Family Current Living Situation Comment: grand daughter stays with PT current occupational status: retired How many Children do You have: 4 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 The review of systems is otherwise negative other than for that already noted above, and at least 10 systems have been reviewed. Physical Exam Physical Exam: The patient is awake, alert and oriented 3, well developed and well nourished, normocephalic and atraumatic, lying in bed and in mild distress. HEENT--PERRL, EOMI, mucous membranes and oropharynx dry. Neck--supple. No JVD. No bruits. Thyroid normal, trachea midline, no adenopathy. Heart--normal S1 and S2. No murmurs, rubs or gallops. Lungs--clear bilaterally, no respiratory distress, no accessory muscle use. Abdomen--normal bowel sounds and soft. Mild generalized tenderness. Nondistended. Extremities--no cyanosis or clubbing. No edema. Dermatologic--normal skin turgor, normal color, no abnormal lymph nodes, no rash. Neurologic--cranial nerves II through XII grossly intact. Rheumatologic--normal range of motion. Psychiatric--normal affect. Results & Data Results & Data ([facility]) Vital Signs (Past 12 Hours) Vital Signs Temp Pulse Resp BP Pulse Ox 03/18/21 17:30 88 21 03/18/21 17:00 89 27 H 03/18/21 16:36 91 H 19 03/18/21 16:00 94 H 19 135/88 91 03/18/21 15:30 94 H 28 H 130/80 92 03/18/21 15:00 109 H 23 151/85 H 03/18/21 14:30 91 H 20 143/82 H 90 03/18/21 14:00 96 H 15 113/60 96 03/18/21 13:51 98.2 F 93 H 18 113/74 95 03/18/21 13:49 91 H 16 113/74 95 Laboratory Results Laboratory Results WBC 6.83 K/uL (4.8-10.8) 03/18/21 14:01 RBC 4.27 M/uL (4.2-5.4) 03/18/21 14:01 Hgb 12.0 g/dL (12.0-16.0) 03/18/21 14:01 Hct 36.3 % (37-47) L 03/18/21 14:01 MCV 85.0 fL (80-100) 03/18/21 14:01 MCH 28.1 pg (25-34) 03/18/21 14:01 MCHC 33.1 g/dL (32-36) 03/18/21 14:01 RDW Std Deviation 51.6 fL (36.4-46.3) H 03/18/21 14:01 RDW Coeff of Maye 16.6 % (11.5-14.5) H 03/18/21 14:01 Plt Count 192 K/uL (130-400) 03/18/21 14:01 MPV 10.5 fL (7.4-10.4) H 03/18/21 14:01 Immature Gran % (Auto) 0.1 % 03/18/21 14:01 Neut % (Auto) 48.1 % 03/18/21 14:01 Lymph % (Auto) 27.2 % 03/18/21 14:01 [place] % (Auto) 9.4 % 03/18/21 14:01 Eos % (Auto) 14.9 % 03/18/21 14:01 Baso % (Auto) 0.3 % 03/18/21 14:01 Neut # (Auto) 3.28 K/uL (1.4-6.5) 03/18/21 14:01 Lymph # (Auto) 1.86 K/uL (1.2-3.4) 03/18/21 14:01 [place] # (Auto) 0.64 K/uL (0.11-0.59) H 03/18/21 14:01 Eos # (Auto) 1.02 K/uL (0-0.5) H 03/18/21 14:01 Baso # (Auto) 0.02 K/uL (0-0.2) 03/18/21 14:01 Immature Gran # (Auto) 0.01 K/uL (0.00-0.02) 03/18/21 14:01 Sodium 139 mmol/L (136-145) 03/18/21 14:01 Potassium 2.8 mmol/L (3.5-5.1) L 03/18/21 14:01 Chloride 107 mmol/L (98-107) 03/18/21 14:01 Carbon Dioxide 23 mmol/L (21-32) 03/18/21 14:01 Anion Gap 9.0 (3-11) 03/18/21 14:01 BUN 12 mg/dl (7-18) 03/18/21 14:01 Creatinine 2.07 mg/dl (0.6-1.2) H 03/18/21 14:01 Est Cr Clr Drug Dosing 25.9 ml/min 03/18/21 14:01 Est GFR ( Amer) 26.3 ml/min 03/18/21 14:01 Est GFR (Non-Af Amer) 22.7 ml/min 03/18/21 14:01 BUN/Creatinine Ratio 5.8 (10-20) L 03/18/21 14:01 Glucose 157 mg/dl (70-99) H 03/18/21 14:01 POC Glucose 172 mg/dl (70-99) H 03/18/21 22:41 Calcium 9.1 mg/dl (8.5-10.1) 03/18/21 14:01 Total Bilirubin 1.4 mg/dl (0.2-1) H 03/18/21 14:01 AST 25 U/L (15-37) 03/18/21 14:01 ALT 14 U/L (12-78) 03/18/21 14:01 Alkaline Phosphatase 120 U/L (45-117) H 03/18/21 14:01 Total Protein 7.1 gm/dl (6.4-8.2) 03/18/21 14:01 Albumin 3.4 gm/dl (3.4-5.0) 03/18/21 14:01 Globulin 3.7 gm/dl (2.5-4.0) 03/18/21 14:01 Albumin/Globulin Ratio 0.9 (0.9-2) 03/18/21 14:01 Lipase 77 U/L (73-393) 03/18/21 14:01 Specimen Hemolysis 03/18/21 14:01 Urine Color Yellow 03/18/21 18:24 Urine Appearance Clear (Clear) 03/18/21 18:24 Urine pH 5.0 (4.5-7.5) 03/18/21 18:24 Ur Specific [place] 1.011 (1.000-1.030) 03/18/21 18:24 Urine Protein Negative (Negative) 03/18/21 18:24 Urine Glucose (UA) Negative (Negative) 03/18/21 18:24 Urine Ketones Negative (Negative) 03/18/21 18:24 Urine Blood Negative (Negative) 03/18/21 18:24 Urine Nitrite Negative (Negative) 03/18/21 18:24 Urine Bilirubin Negative (Negative) 03/18/21 18:24 Urine Urobilinogen Negative (Negative) 03/18/21 18:24 Ur Leukocyte Esterase Negative (Negative) 03/18/21 18:24 Theophylline 23 mcg/ml (10-20) H 03/18/21 21:02 COVID-19 Eval Order Covid19 at [facility] 03/18/21 16:06 SARS-CoV-2 (PCR) NEGATIVE (Negative) 03/18/21 16:06 Impressions Abdomen/Pelvis CT 03/18/21 15:[address] WITHOUT CONTRAST CT DOSE: 639.72 mGy.cm HISTORY: nausea, vomiting, generalized abd pain, diarrhea TECHNIQUE: Multiaxial CT images of the abdomen and pelvis were performed without contrast. A dose lowering technique was utilized adhering to the principles of ALARA. COMPARISON STUDY: Abdomen and pelvis CT 03/09/2021. FINDINGS: A few bibasilar linear densities consistent with subsegmental atelectasis. No pneumoperitoneum. No pneumatosis. No change in the acute/subacute moderate superior endplate compression fracture at L3. Trace per icardial fluid anteriorly. Cholecystectomy. The unenhanced liver, spleen, right adrenal gland, and pancreas are unremarkable. There are 2 punctate stones within the right kidney. Stable bilateral renal hypo and hyperdense lesions. No left renal calculi. No ureteral calculi. No hydronephrosis. Mild bilateral perinephric edema, unchanged. Stable left adrenal gland adenoma. No retroperitoneal lymphadenopathy. Moderate calcified plaque within the normal caliber abdominal aorta. The bladder is unremarkable. Prior hysterectomy. No pelvic free fluid. Fluid-filled colon. There is mild thickening throughout the colon with minimal pericolonic fat stranding. Findings are consistent with a mild nonspecific pancolitis. Extensive colonic diverticulosis. No evidence for acute diverticulitis. No evidence for bowel obstruction. IMPRESSION: 1. Mild nonspecific pancolitis. This favors an infectious or inflammatory process. 2. Colonic diverticulosis. No evidence for acute diverticulitis. 3. Stable right-sided nephrolithiasis. No ureteral stones. No hydronephrosis. 4. No evidence for bowel obstruction. 5. No change in the acute to subacute L3 compression fracture. ACT 112: Negative or not required by law. Electronically signed by: Ananda Segovia M.D. 03/18/2021 4:47 PM Code Status & VTE Plan Code Status Full code VTE Prophylaxis Plan VTE Prophylaxis will be ordered: Yes PG Care Time/CCT Total # of Minutes Spent Total Time Spent with Patient: Total time spent is greater than 50% in coordination of care (as documented) at patient's floor/unit and/or counseling patient: Coding Level of Care Code 83281 Initial Inpt Care Lvl 3 Diagnoses Microscopic colitis K52.839 Secondary adrenal insufficiency E27.49 Hypothyroidism E03.9 Depression F32.9 Diabetes E11.9 COPD (chronic obstructive pulmonary disease) J44.9 COPD type: unspecified COPD Hypokalemia E87.6 Acute kidney injury superimposed on chronic kidney disease N17.9; N18.9 (1) COPD (chronic obstructive pulmonary disease) COPD type: unspecified COPD Qualified Code(s): J44.9 - Chronic obstructive pulmonary disease, unspecified
[2021-03-18] MEDS ORDERED: GLUCAGON FOR INJ 1 MG VIAL SQ PRN (22:23)
[2021-03-18] MEDS ORDERED: ONDANSETRON INJ 2 MG/ML 2 ML VIAL IV PRN (22:23)
[2021-03-18] MEDS ORDERED: DEXTROSE 50% 50 ML SYRINGE IV PRN (22:23)
[2021-03-18] MEDS ORDERED: traMADol HCL 50 MG TABLET PO PRN (22:23)
[2021-03-18] MEDS ORDERED: CARBOHYDRATES FOR HYPOGLYCEMIA PO PRN (22:23)
[2021-03-18] MEDS ORDERED: GLUCOSE 10 TABS/TUBE PO PRN (22:23)
[2021-03-18] MEDS ORDERED: GLUCOSE 40% GEL 15 GM TUBE PO PRN (22:23)
[2021-03-18] MEDS ORDERED: DIPHENOXYLATE/ATROPINE 2.5/0.025MG TAB PO PRN (22:23)
[2021-03-18] MEDS ORDERED: ACETAMINOPHEN 325 MG TAB PO PRN (22:23)
[2021-03-18] MEDS ORDERED: IPRATROPIUM BROMIDE/ALBUTEROL respimat INH INH PRN (22:23)
[2021-03-18] MEDS ORDERED: Albuterol HFA 8 GM Inhaler (Combivent Respimat P&T Subs) INH PRN (22:42)
[2021-03-18] MEDS ORDERED: Ipratropium HFA Inhaler (Combivent Respimat P&T Subs) INH PRN (22:42)
[2021-03-18] MEDS ORDERED: PANTOprazole 40 MG TAB PO SCH (22:45)
[2021-03-18] MEDS: INSULIN ASPART 100 UNITS/ML 3 ML PEN SC SCH (23:06)
[2021-03-19] MEDS: HEPARIN SOD 5,000 UNIT/0.5 ML VIAL SQ SCH ×2 (00:06→08:31)
--- NOTE | 2021-03-19 06:03 | Electrocardiogram Report ---
Test Reason : Blood Pressure : / mmHG Vent. Rate : 092 BPM Atrial Rate : 092 BPM P-R Int : 166 ms QRS Dur : 090 ms QT Int : 390 ms P-R-T Axes : 063 -11 059 degrees QTc Int : 482 ms Normal sinus rhythm Nonspecific ST and T wave abnormality Abnormal ECG When compared with ECG of 09-MAR-2021 18:47, T wave inversion no longer evident in Anterolateral leads Confirmed by Jose Ramon Charles ([id number]) on 03/19/2021 6:03:02 AM Referred By: REFERRED SELF Confirmed By:Jose Ramon Charles
[2021-03-19 06:09] LABS: Basophils # (auto) 0.01 K/uL (0-0.2); Basophils % (auto) 0.3 %; Eosinophils # (auto) 0.03 K/uL (0-0.5); Hemoglobin 10.9 g/dL (12.0-16.0); Immature Granulocytes # (auto) 0.01 K/uL (0.00-0.02); Immature Granulocytes % (auto) 0.3 %; Lymphocytes # (auto) 0.88 K/uL (1.2-3.4); Lymphocytes % (auto) 28.7 %; Mean Corpuscular Hemoglobin 27.7 pg (25-34); Mean Corpuscular Hgb Conc 32.1 g/dL (32-36); Mean Corpuscular Volume 86.5 fL (80-100); Mean Platelet Volume 9.8 fL (7.4-10.4); Monocytes # (auto) 0.16 K/uL (0.11-0.59); Monocytes % (auto) 5.2 %; Neutrophils # (auto) 1.98 K/uL (1.4-6.5); Neutrophils % (auto) 64.5 %; Platelet Count 172 K/uL (130-400); RDW Coefficient of Variation 16.2 % (11.5-14.5); Red Blood Count 3.93 M/uL (4.2-5.4); White Blood Count 3.07 K/uL (4.8-10.8)
[2021-03-19] MEDS ORDERED: LEVOTHYROXINE SODIUM 112 MCG TABLET PO SCH (06:30)
[2021-03-19 06:35] LABS: Albumin Level 3.1 gm/dl (3.4-5.0); BUN Creatinine Ratio 6.7 (10-20); Calcium 9.2 mg/dl (8.5-10.1); Creatinine Clr Calc Pharmacy 25.5 ml/min; Est GFR (African American) 25.8 ml/min; Est GFR (Non-African American) 22.3 ml/min; Magnesium 1.5 mg/dl (1.8-2.4); Potassium 3.2 mmol/L (3.5-5.1)
[2021-03-19 06:38] LABS: Albumin Globulin Ratio 0.9 (0.9-2); Bilirubin,Total 0.9 mg/dl (0.2-1); Globulin 3.5 gm/dl (2.5-4.0); Total Protein 6.6 gm/dl (6.4-8.2)
[2021-03-19 07:17] VITALS: BP 117/69; PULSE 85; TEMP 98.4; O2SAT 94
[2021-03-19 07:49] LABS: Estimated Average Glucose 151 mg/dl; Hemoglobin A1C 6.9 % (4.5-5.6)
[2021-03-19] MEDS ORDERED: POTASSIUM CHLORIDE CRTAB 20 MEQ TABCR PO STA (07:52)
[2021-03-19] MEDS: MAGNESIUM SULFATE / D5W 1 GM/100 ML BAG IV SCH ×2 (08:24→09:34)
[2021-03-19] MEDS: POTASSIUM CHLORIDE / WTR 10 MEQ/100 ML PLCT IV SCH ×2 (08:25→11:18)
[2021-03-19] MEDS ORDERED: FOLIC ACID 1 MG TAB PO SCH (09:00)
[2021-03-19] MEDS ORDERED: BUDESONIDE EC 3 MG CAP PO SCH (09:00)
[2021-03-19] MEDS ORDERED: FAMOTIDINE 20 MG TAB PO SCH (09:00)
[2021-03-19] MEDS ORDERED: SERTRALINE HCL 100 MG TABLET PO SCH (09:00)
[2021-03-19] MEDS ORDERED: POTASSIUM CHLORIDE CRTAB 20 MEQ TABCR PO SCH (09:00)
[2021-03-19] MEDS: INSULIN ASPART 100 UNITS/ML 3 ML PEN SC SCH ×2 (09:40→13:12)
--- NOTE | 2021-03-19 09:46 | Hospitalist Progress Note ---
Date of Service March 19, 2021 Assessment & Plan Admission and Anticipated Discharge Date Admission Date: March 18, 2021 Subjective Patient seen and evaluated at bedside this morning. Patient feels well this morning and notes her nausea, diarrhea, and discomfort have all greatly improved compared to when she came in. Nausea has resolved and diarrhea has decreased in frequency. Patient had one loose BM just prior to our conversation. Patient couldn't remember when her last BM before that was, but per RN it was sometime last night. Patient denies CP, SOB, vomiting, lightheadedness, dizzines. On review of recent notes, patient was prescribed budesonide after a recent hospitalization here for similar symptoms, and when she tried to pick it up, it was too expensive for her. This was noted on last admission, and a prior authorization had been completed. I asked patient about this - patient reports this was never communicated to her, and she was still under the impression that it would be very expensive. I let her know that insurance approval had been obtained. I then called patient's pharmacy ([facility]) to ensure that this information was accurate - [facility] pharmacist says the prescription was ready for pick-up, covered by insurance, and that the co-pay for her budesonide (84 tablets) would be $0. Review of Systems Review of Systems: See HPI Physical Exam Physical Exam: Constitutional: well-appearing, no acute distress CV: regular rhythm, no murmur appreciated, extremities well-perfused, no LE edema Resp: CTABL, no wheezes/rales/rhonchi appreciated, no increased work of breathing GI: soft, nondistended, mild tenderness of LLQ, nontender elsewhere, BM slightly hyperactive Skin: warm, dry, no rash appreciated Neuro: AOx4, no focal neurological deficits appreciated Results & Data Results & Data ([facility]) Vital Signs (Past 12 Hours) Vital Signs Temp Pulse Resp BP Pulse Ox 03/19/21 07:15 36.9 C 85 16 117/69 94 03/18/21 22:58 37.1 C 87 16 153/81 H 95
--- NOTE | 2021-03-19 12:53 | Discharge Summary ---
Date of Service March 19, 2021 Admission HPI Per Admitting Provider The patient is a 75-year-old female with a past medical history including microscopic colitis, gout, persistent diarrhea, secondary adrenal insufficiency, ACTH deficiency, adrenal adenoma, hypothyroidism, CKD stage III, hypertension, depression, COPD and diabetes. She presents with recurrent symptoms as noted above Her most recent hospitalizations: 01/16-01/17, 02/09-02/17, 02/21-02/25, 02/27-03/03, 03/09- 03/10, and today. Admission Exam Per Admitting Provider The patient is awake, alert and oriented 3, well developed and well nourished, normocephalic and atraumatic, lying in bed and in mild distress. HEENT--PERRL, EOMI, mucous membranes and oropharynx dry. Neck--supple. No JVD. No bruits. Thyroid normal, trachea midline, no adenopathy. Heart--normal S1 and S2. No murmurs, rubs or gallops. Lungs--clear bilaterally, no respiratory distress, no accessory muscle use. Abdomen--normal bowel sounds and soft. Mild generalized tenderness. Nondi stended. Extremities--no cyanosis or clubbing. No edema. Dermatologic--normal skin turgor, normal color, no abnormal lymph nodes, no rash. Neurologic--cranial nerves II through XII grossly intact. Rheumatologic--normal range of motion. Psychiatric--normal affect. Principal Diagnosis Colitis Discharge Exam Constitutional: well-appearing, no acute distress CV: regular rhythm, no murmur appreciated, extremities well-perfused, no LE edema Resp: CTABL, no wheezes/rales/rhonchi appreciated, no increased work of breathing GI: soft, nondistended, mild tenderness of LLQ, nontender elsewhere, BM slightly hyperactive Skin: warm, dry, no rash appreciated Neuro: AOx4, no focal neurological deficits appreciated Discharge Data Allergies Allergy/AdvReac Type Severity Reaction Status Date / Time adhesive Allergy Unknown PULLS SKIN Verified 03/09/21 16:40 OFF Penicillins Allergy Unknown TONGUE Verified 03/09/21 16:40 SWELLING azithromycin AdvReac Unknown Nausea Verified 03/09/21 16:40 Consultations 03/18/21 21:41 ED Decision to Admit Stat Ordered Studies 03/18/21 15:50 CT abd pelvis wo con Stat Hospital Course (1) Microscopic colitis: Patient was admitted for worsening diarrhea in the setting of multiple recent hospitalizations for similar symptoms. CT showed mild nonspecific colitis. Patient was treated with steroids, and symptoms rapidly improved. Mild hypokalemia was repleted orally and intravenously. On further review of recent events, patient had been prescribed budesonide to treat recently-diagnosed microscopic colitis; however, patient did not grain picker the budesonide due to very high cost. When this was realized, a prior authorization was obtained, and the prescription cost was covered, but the patient had not been aware of this, and had not received any steroid treatment since last hospitalization. Patient's pharmacy was contacted and verified that patient's budesonide was ready with a $0 co-pay. Patient was informed of this situation and was deemed safe for discharge with instruction to grain picker and take budesonide. Patient already had previously-arranged follow-up with GI scheduled for 03/25/21. Additionally, the possibility of colitis caused by or exacerbated by patient's chronic PPI therapy was considered. Patient was instructed to downtaper off her PPI slowly, starting with changing from esomeprazole daily to every other day for one week. Discussion of this topic at patient's 03/25 gastroenterology appointment is recommended. Total Time Total Time Spent Total Time Spent (In Minutes): <30 Discharge Plan Discharge Items Patient Disposition: Home - Self-Care Reason For Visit: DIARRHEA, ADRENAL INSUFFICIENCY Discharge Diagnosis: Colitis Activity: Resume your previous activity Non-emergency contact: Primary Care Provider and Exercise Specialist Call non-emergency contact if: you have any medication questions and your symptoms worsen Follow-up/Referrals: Harini Waters PA-C [Physician Gastroenterology Physician] - 03/25/21 1:00 pm Arthur Cruz [Primary Care Provider] - 03/31/21 2:00 pm Diet: Carb Consistent or DM2 Addtl Attending Provider Instructions: You were admitted to the hospital for abdominal pain, nausea, and diarrhea, which we think was caused by microscopic colitis. This is what the gastrointestinal team diagnosed you with prior to this visit. They had prescribed budesonide (a steroid medicine to reduce inflammation), but this medicine was very expensive. We worked with insurance to reduce the cost, and we have verified with your pharmacy that this medicine is ready for you to grain picker, and will be free of charge. We believe this will control your symptoms while you continue to work with the gastrointestinal team in their clinic. A discharge summary will be sent to your primary care physician to ensure continuity of care. Please bring this discharge summary with you to your next office appointment so that your provider can review it at that time. Follow-up appointments: Make a follow-up appointment with your PCP within the next week. It is very important that you follow up with them shortly after discharge from the hospital. You have a gastrointestinal appointment with RON Ragsdale on March 25 at 1:00pm. Keep all your follow-up appointments as already scheduled. If you cannot make an appointment, notify your provider. Medications: Your medication list has been reviewed and reconciled upon discharge to ensure accuracy and continuity of care. An updated list of all your medications is included with your hospital discharge paperwork. Please review this list closely, and make note of any changes. * We sent a new medication called budesonide (9mg) to your pharmacy. Take budesonide (9mg) one tablet daily. * We recommend that you slowly reduce your dose of esomeprazole. Instead of taking esomeprazole every day, take esomeprazole every other day for the next week. Then, discuss with the combatant diver officer at your appointment on March 25 to see if they feel you should reduce your dose even further. Take your medications as instructed; do not skip a dose of your medicines. Make sure all of your doctors know every medicine you are taking (including cddn-sym-dstjlsz medicines, vitamins, and supplements). Call your primary care provider before taking any new medicines (including mzix-xet-jmpnlrb medicines, vitamins, and supplements), because some of these may interact with your current medications, or may make your symptoms worse. Tell your primary care provider if you cannot afford your medications. CONTACT YOUR PRIMARY CARE PROVIDER if you experience any of the following: Worsening nausea, vomiting, diarrhea Fever, chills Lightheadedness or dizziness Difficulty following your treatment plan, or difficulty taking medications CALL 911 OR GO TO THE EMERGENCY DEPARTMENT if you experience any of the following: Sudden, severe abdominal pain or nausea/vomiting Severe chest pain, or chest pain that radiates (moves) to your jaw or arm Sudden, severe shortness of breath or difficulty breathing Thank you for allowing us to participate in your care. Pending Studies at Discharge: No Stand-Alone Forms: My [facility] Medications and DC Order Prescriptions: Continued sertraline [Zoloft] 100 mg tablet 100 mg PO QAM RF: 0 folic acid 1 mg tablet 1 mg PO QAM RF: 0 Combivent Respimat 20-100 mcg/actuation Mist 1 puff INHALATION Q4H PRN (Reason: Shortness Of Breath Or Wheezing) RF: 0 furosemide [Lasix] 20 mg tablet 20 mg PO DAILY PRN (Reason: Swelling) RF: 0 levothyroxine [Synthroid] 112 mcg tablet 112 mcg PO DAILYBB RF: 0 albuterol sulfate 2.5 mg /3 mL (0.083 %) solution for nebulization 2.5 mg continuous nebulization Q4 PRN (Reason: cough,sob) RF: 0 tramadol 50 mg Tablet 50 mg PO Q4H PRN (Reason: pain) 30 Days Qty: 30 RF: 0 famotidine 20 mg Tablet 20 mg PO BID 30 Days Qty: 60 RF: 0 hydrocortisone [Cortef] 10 mg Tablet 10 mg PO PM 30 Days Qty: 30 RF: 3 hydrocortisone [Cortef] 10 mg Tablet 20 mg PO QAM 30 Days Qty: 60 RF: 3 budesonide [Entocort EC] 3 mg capsule,delayed,extend.release 9 mg PO QAM 30 Days Qty: 90 RF: 0 acetaminophen [Tylenol] 325 mg Tablet 650 mg PO QID PRN (Reason: Pain) RF: 0 diphenoxylate-atropine 2.5-0.025 mg tablet 1 tab PO Q3H PRN (Reason: Diarrhea) RF: 0 theophylline 300 mg tablet extended release 12 hr 300 mg PO DAILY Qty: 0 RF: 0 Changed esomeprazole magnesium 20 mg capsule,delayed release(DR/EC) 20 mg PO Q48H 7 Days Qty: 0 RF: 0 Discharge Orders: Discharge Order (Routine); Ordered 03/19/21 Ordered By: Osvaldo Topete/Other Patient Handouts: A1C, Managing Type 2 Diabetes Admission Data Admit Date/Time: 03/18/21 20:36 Attending Provider: Nba Moore Admit Provider: Tramaine Connor Primary Care Provider: Arthur Cruz Other Providers: Tramaine Connor Other Interventions: Discharge Summary Assessment (RN) Last Done: 03/19/21 17:05 Supervising Physician Co-Signing Physician Notes I personally examined the patient and verified all sams points of history and exam, discussed case, and agree with decision making with Dr Mann. Feeling better, feeling up to going home. Dr Mann checked with pharmacy, and her budesonide is now affordable as the prior Auth has been approved. Vitals noted, in general she is awake and alert pleasant no distress. HEENT normocephalic atraumatic mucous membranes moist. Breathing unlabored no accessory muscle use good effort. Skin shows no rashes no pallor or icterus. Neuro without focal deficits. Microscopic colitisstop PPI (certainly lansoprazole and/or omeprazole or more potentially implicated, but if she does not need pantoprazole for symptom control, obviously would be better to DC it). Now that prior Auth has been approved, she will be able to start her budesonide, and hopefully that will help her do better. It should be pointed out, that the insurance company withholding necessary care due to arbitrary and often wasteful bureaucratic processes such as her prior authorization for budesonide (a unique steroid as it relates to GI tract inflammation, not really comparable with other steroids) is likely directly the cause of her admissions on 02/21, 02/27, 03/09, and her current admission. Because of this, her insurance company should be responsible/liable for any complications/deconditioning/etc. that this poor woman has suffered due to their arbitrary and wasteful process of denying care only to later approve it. Resident Activity Tracking Resident Involvement: Resident Care Provided Care Provided: Adult Hospital Medicine
--- NOTE | 2021-03-19 20:32 | Billing Data ---
Date of Service March 19, 2021 Coding Level of Care Code D/C DAY MANAGEMENT <30 MINS
== END 2021-03-19 17:05 | disposition home health service (06) ==
LOC: ED 13:41 → SUATTDRO 20:36 → INTOOBSV 20:36 → 3N 20:36
DX: N18.30 Chronic kidney disease, stage 3 unspecified; Z86.16 Personal history of COVID-19; E87.6 Hypokalemia; Z85.118 Personal history of other malignant neoplasm of bronchus and lung; E11.22 Type 2 diabetes mellitus with diabetic chronic kidney disease; E03.9 Hypothyroidism, unspecified; R11.2 Nausea with vomiting, unspecified; Z87.891 Personal history of nicotine dependence; Z82.49 Family history of ischemic heart disease and other diseases of the circulatory system; Z88.1 Allergy status to other antibiotic agents; Z88.0 Allergy status to penicillin; K52.839 Microscopic colitis, unspecified; Z20.822 Contact with and (suspected) exposure to COVID-19; Z83.3 Family history of diabetes mellitus; J44.9 Chronic obstructive pulmonary disease, unspecified; Z79.899 Other long term (current) drug therapy; E27.40 Unspecified adrenocortical insufficiency; R19.7 Diarrhea, unspecified

== ENCOUNTER 2021-03-23 14:14 | Observation (INO) ==
[2021-03-23] MEDS ORDERED: ONDANSETRON INJ 2 MG/ML 2 ML VIAL IV STA (14:46)
[2021-03-23] MEDS ORDERED: HYDROCORTISONE SOD SUCCINATE 100 MG/2 ML VIAL IV STA (14:53)
--- NOTE | 2021-03-23 14:55 | Emergency Department Note ---
History of Present Illness General Chief complaint: Abdominal Pain Stated complaint: abd pain Time Seen by Provider: 03/23/21 14:17 Source: patient, RN notes reviewed and old records reviewed Mode of arrival: ambulatory Limitations: no limitations History of Present Illness Maximum Pain Intensity: 3 This patient is a 75-year-old female who has a history of nonsmall cell lung cancer, comes in after having nausea vomiting diarrhea. She has been having ongoing issues with this and is had 4 hospitalizations since October. She has been seen by GI and had a colonoscopy recently which showed microscopic colitis. She has had multiple images as well. She does have an appoint with GI as an outpatient in 2 days on the . She has been unable to eat anything for about 3 days for solids and unable to take fluids down for last 24 hours but she does have Zofran at home which she is tried. Denies abdominal pain she just very nauseated. Denies chest pain or shortness of breath. She has not had the Covid vaccine but did have Covid earlier this year. Home Medications Medication Instructions Recorded Confirmed Type folic acid 1 mg tablet 1 mg PO QAM 07/17/18 03/23/21 History ipratropium 20 mcg-albuterol 100 1 puff INHALATION Q4H PRN 07/17/18 03/23/21 History mcg/actuation mist for inhalation (Combivent Respimat) sertraline 100 mg tablet (Zoloft) 100 mg PO QAM 07/17/18 03/23/21 History furosemide 20 mg tablet (Lasix) 20 mg PO DAILY PRN 06/28/20 03/23/21 History albuterol sulfate 2.5 mg CONTINUOUS NEBULIZATION Q4 01/15/21 03/23/21 History PRN levothyroxine 112 mcg tablet 112 mcg PO DAILYBB 02/09/21 03/23/21 History (Synthroid) budesonide 3 mg 9 mg PO QAM 30 Days #90 ea 03/03/21 03/23/21 Rx capsule,delayed,extended release (Entocort EC) famotidine 20 mg tablet 20 mg PO BID 30 Days #60 tab 03/03/21 03/23/21 Rx hydrocortisone 10 mg tablet 10 mg PO PM 30 Days #30 tab 03/03/21 03/23/21 Rx (Cortef) hydrocortisone 10 mg tablet 20 mg PO QAM 30 Days #60 tab 03/03/21 03/23/21 Rx (Cortef) tramadol 50 mg tablet 50 mg PO Q4H PRN 30 Days #30 tab 03/03/21 03/23/21 Rx acetaminophen 325 mg tablet 650 mg PO QID PRN 03/09/21 03/23/21 History (Tylenol) diphenoxylate-atropine 2.5 1 tab PO Q3H PRN 03/09/21 03/23/21 History mg-0.025 mg tablet theophylline 300 mg 300 mg PO DAILY #0 tab 03/10/21 03/23/21 Rx tablet,extended release,12 hr esomeprazole magnesium 20 mg 20 mg PO Q48H 7 Days #0 cap 03/19/21 03/23/21 Rx capsule,delayed release Allergies Allergy/AdvReac Type Severity Reaction Status Date / Time adhesive Allergy Unknown PULLS SKIN Verified 03/23/21 17:08 OFF Penicillins Allergy Unknown TONGUE Verified 03/23/21 17:08 SWELLING azithromycin AdvReac Unknown Nausea Verified 03/23/21 17:08 Past Med/Surg History Medical History Abdominal pain ACTH deficiency Acute electrocardiogram changes Adrenal adenoma Arthritis Chest pain Chronic renal failure, stage 3 (moderate) COPD (chronic obstructive pulmonary disease) COVID-19 05/2020 Depression Diabetes Diffuse abdominal pain Fall Fever Hypoxia Injury of foot Lung cancer 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 Nausea, vomiting, and diarrhea Neutropenic fever Orthostatic hypotension Right knee DJD Secondary adrenal insufficiency Tachycardia Vomiting Surgical History Hx of right knee surgery Family History Mother Heart disease Father , in his 90s - old age COPD (chronic obstructive pulmonary disease) Other Diabetes Hypertension Lung disease Social History Smoking Status: Never smoker Tobacco Type: Cigarettes Age Started Using Tobacco: 19; Age Quit Using Tobacco: 75; packs per day: 0.5; Second Hand Exposure: No; Hx Alcohol Use: No Hx Substance Use: No Preferred Language: Luxembourgish Communication Ability: Effective Laboratory Associate Required: No Beliefs That Will Affect Care: None marital status: / Current Living Situation: Family Current Living Situation Comment: Noe lives with patient current occupational status: retired How many Children do You have: 4 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 Feels Safe at Home: Yes Assistive Devices: Oxygen - at Night and Walker Review of Systems A total of 10 systems reviewed and were otherwise negative Physical Exam Vital Signs Vital Signs - 24 hr 03/23/21 14:19 03/23/21 14:20 03/23/21 14:30 Temperature 37.0 C Temperature Source Oral Pulse Rate 104 H 104 H 103 H Pulse Rate from SpO2 Sensor 103 H Pulse Rhythm Regular Pulse Strength Normal Respiratory Rate 20 20 24 Respiratory Effort / Characteristics Non-Labored Spontaneous Respiratory Depth Normal Respiratory Pattern Regular Blood Pressure 138/100 138/100 126/79 Blood Pressure Mean 112 112 94 Blood Pressure Position Lying Pulse Oximetry 96 97 Oxygen Delivery Method Room Air Sepsis Recent Fever Within 48 Hours No Sepsis New/Unexplained Change in Mental Status N/A Sepsis Action Taken by Nursing No Action Required 03/23/21 15:00 03/23/21 15:30 03/23/21 16:00 Temperature Temperature Source Pulse Rate 85 89 90 Pulse Rate from SpO2 Sensor 86 85 90 Pulse Rhythm Pulse Strength Respiratory Rate 19 22 15 Respiratory Effort / Characteristics Respiratory Depth Respiratory Pattern Blood Pressure 146/74 H 138/70 151/90 H Blood Pressure Mean 98 92 110 Blood Pressure Position Pulse Oximetry 93 93 94 Oxygen Delivery Method Sepsis Recent Fever Within 48 Hours Sepsis New/Unexplained Change in Mental Status Sepsis Action Taken by Nursing 03/23/21 16:30 03/23/21 17:00 Temperature Temperature Source Pulse Rate 87 85 Pulse Rate from SpO2 Sensor 86 85 Pulse Rhythm Pulse Strength Respiratory Rate 21 18 Respiratory Effort / Characteristics Respiratory Depth Respiratory Pattern Blood Pressure 135/80 122/70 Blood Pressure Mean 98 87 Blood Pressure Position Pulse Oximetry 93 92 Oxygen Delivery Method Sepsis Recent Fever Within 48 Hours Sepsis New/Unexplained Change in Mental Status Sepsis Action Taken by Nursing General: Well developed well nourished older female who appears nauseated and uncomfortable but in no acute respiratory distress, breathing comfortably on room air. Normal speech HEENT: Normal cephalic atraumatic. Pupils are equal round and reactive to light. Extraocular movements are intact. Oropharynx is pink with moist mucous membranes. No swelling of the mouth lips or tongue. Neck: Supple with a midline trachea. No meningeal signs or stiffness, no JVD or bruits. No Stridor. Chest: Clear to auscultation bilaterally. No wheezes or rhonchi. No increased work of breathing. Heart: Regular rate and rhythm without murmurs or gallops. Abdomen: Soft nontender, nondistended without rebound guarding or rigidity. Extremities: No cyanosis clubbing or edema. No calf tenderness or assymetry Spine/Back. Non tender to palpation. No CVA tenderness Skin: Good turgor without rashes. Neurologic exam: Cranial nerves two through 12 are intact. Motor and sensation are intact and symmetrical throughout. Course Administered Medications Lactated Ringer's (Lr) 1,000 mls @ 125 mls/hr IV .Q8H SIMONA Stop: 04/22/21 16:29 Last Admin: 03/23/21 18:41 Dose: 125 mls/hr Documented by: [id number] Discontinued Medications Hydrocortisone Sodium Succinate (Hydrocortisone Sod Succinate 100 Mg/2 Ml Vial) 100 mg IV NOW [facility] Stop: 03/23/21 14:54 Last Admin: 03/23/21 15:00 Dose: 100 mg Documented by: [id number] Sodium Chloride (Nss 1000ml) 2,000 mls @ 999 mls/hr IV .Q2H1M SIMONA Stop: 03/23/21 17:00 Last Infusion: 03/23/21 15:51 Dose: 0 mls/hr Documented by: [id number] Admin: 03/23/21 14:54 Dose: 999 mls/hr Documented by: [id number] Potassium Chloride (K Fuentes / Wtr) 10 meq in 100 mls @ 100 mls/hr IV Q1H SIMONA Stop: 03/23/21 17:29 Last Infusion: 03/23/21 18:00 Dose: 0 mls/hr Documented by: [id number] Admin: 03/23/21 16:53 Dose: 100 mls/hr Documented by: [id number] Infusion: 03/23/21 16:53 Dose: 0 mls/hr Documented by: [id number] Admin: 03/23/21 15:51 Dose: 100 mls/hr Documented by: [id number] Magnesium Sulfate/Dextrose (Magnesium Sulfate / D5w) 1 gm in 100 mls @ 100 mls/hr IV Q1H SIMONA Stop: 03/23/21 17:25 Last Admin: 03/23/21 17:59 Dose: 100 mls/hr Documented by: [id number] Infusion: 03/23/21 17:59 Dose: 0 mls/hr Documented by: [id number] Admin: 03/23/21 16:52 Dose: 100 mls/hr Documented by: [id number] Magnesium Sulfate/Dextrose (Magnesium Sulfate / D5w) 1 gm in 100 mls @ 50 mls/hr IV Q2H STA Stop: 03/23/21 19:22 Last Admin: 03/23/21 18:41 Dose: 50 mls/hr Documented by: [id number] Ondansetron HCl (Ondansetron Inj 2 Mg/Ml 2 Ml Vial) 4 mg IV NOW STA Stop: 03/23/21 14:47 Last Admin: 03/23/21 14:54 Dose: 4 mg Documented by: [id number] Potassium Chloride (Potassium Chloride Crtab 20 Meq Tabcr) 40 meq PO NOW STA Stop: 03/23/21 17:24 Last Admin: 03/23/21 17:59 Dose: 40 meq Documented by: [id number] Medical Decision Making Differential Diagnosis Dehydration, electrolyte or metabolic abnormalities, adrenal insufficiency, cardiac disease, infection, sepsis, UTI, Medical Records Attestation: I reviewed the patient's medical records. Home Medications Current Medication List: was personally reviewed by me Laboratory Data Attestation: I reviewed the patient's lab results. Result diagrams: 03/23/21 14:26 03/23/21 14:29 Lab Results 03/23/21 03/23/21 03/23/21 Range/Units 14:26 14:29 15:03 WBC 7.17 (4.8-10.8) K/uL RBC 4.55 (4.2-5.4) M/uL Hgb 12.9 (12.0-16.0) g/dL Hct 38.3 (37-47) % MCV 84.2 (80-100) fL MCH 28.4 (25-34) pg MCHC 33.7 (32-36) g/dL RDW Std Deviation 49.6 H (36.4-46.3) fL RDW Coeff of Maye 16.3 H (11.5-14.5) % Plt Count 205 (130-400) K/uL MPV 11.7 H (7.4-10.4) fL Immature Gran % (Auto) 0.4 % Neut % (Auto) 59.5 % Lymph % (Auto) 21.9 % [place] % (Auto) 8.6 % Eos % (Auto) 9.3 % Baso % (Auto) 0.3 % Neut # (Auto) 4.26 (1.4-6.5) K/uL Lymph # (Auto) 1.57 (1.2-3.4) K/uL [place] # (Auto) 0.62 H (0.11-0.59) K/uL Eos # (Auto) 0.67 H (0-0.5) K/uL Baso # (Auto) 0.02 (0-0.2) K/uL Immature Gran # (Auto) 0.03 H (0.00-0.02) K/uL Sodium 138 (136-145) mmol/L Potassium 2.7 L (3.5-5.1) mmol/L Chloride 104 (98-107) mmol/L Carbon Dioxide 20 L (21-32) mmol/L Anion Gap 14.0 H (3-11) BUN 12 (7-18) mg/dl Creatinine 1.73 H (0.6-1.2) mg/dl Est Cr Clr Drug Dosing 30.8 ml/min Est GFR ( Amer) 32.7 ml/min Est GFR (Non-Af Amer) 28.2 ml/min BUN/Creatinine Ratio 6.6 L (10-20) Glucose 195 H (70-99) mg/dl Calcium 9.4 (8.5-10.1) mg/dl Phosphorus 2.3 L (2.5-4.9) mg/dl Magnesium 1.3 L (1.8-2.4) mg/dl Total Bilirubin 1.0 (0.2-1) mg/dl AST 27 (15-37) U/L ALT 16 (12-78) U/L Alkaline Phosphatase 128 H (45-117) U/L Total Protein 7.5 (6.4-8.2) gm/dl Albumin 3.6 (3.4-5.0) gm/dl Globulin 3.9 (2.5-4.0) gm/dl Albumin/Globulin Ratio 0.9 (0.9-2) Lipase 109 (73-393) U/L COVID-19 Eval Order Covid19 at [facility] SARS-CoV-2 (PCR) (Negative) 03/23/21 Range/Units 15:03 WBC (4.8-10.8) K/uL RBC (4.2-5.4) M/uL Hgb (12.0-16.0) g/dL Hct (37-47) % MCV (80-100) fL MCH (25-34) pg MCHC (32-36) g/dL RDW Std Deviation (36.4-46.3) fL RDW Coeff of Maye (11.5-14.5) % Plt Count (130-400) K/uL MPV (7.4-10.4) fL Immature Gran % (Auto) % Neut % (Auto) % Lymph % (Auto) % [place] % (Auto) % Eos % (Auto) % Baso % (Auto) % Neut # (Auto) (1.4-6.5) K/uL Lymph # (Auto) (1.2-3.4) K/uL [place] # (Auto) (0.11-0.59) K/uL Eos # (Auto) (0-0.5) K/uL Baso # (Auto) (0-0.2) K/uL Immature Gran # (Auto) (0.00-0.02) K/uL Sodium (136-145) mmol/L Potassium (3.5-5.1) mmol/L Chloride (98-107) mmol/L Carbon Dioxide (21-32) mmol/L Anion Gap (3-11) BUN (7-18) mg/dl Creatinine (0.6-1.2) mg/dl Est Cr Clr Drug Dosing ml/min Est GFR ( Amer) ml/min Est GFR (Non-Af Amer) ml/min BUN/Creatinine Ratio (10-20) Glucose (70-99) mg/dl Calcium (8.5-10.1) mg/dl Phosphorus (2.5-4.9) mg/dl Magnesium (1.8-2.4) mg/dl Total Bilirubin (0.2-1) mg/dl AST (15-37) U/L ALT (12-78) U/L Alkaline Phosphatase (45-117) U/L Total Protein (6.4-8.2) gm/dl Albumin (3.4-5.0) gm/dl Globulin (2.5-4.0) gm/dl Albumin/Globulin Ratio (0.9-2) Lipase (73-393) U/L COVID-19 Eval Order SARS-CoV-2 (PCR) NEGATIVE (Negative) ECG Data Attestation: I personally reviewed and interpreted this ECG as follows: Indication: + nausea and + vomiting Rate (beats per minute): 85 Rhythm: + normal sinus ECG Intervals/blocks: + Normal QRS, + Prolonged QT and + Normal QT ECG [place]: + Normal ECG ST segments: + Nonspecific ST abnormalities ECG Findings: no PACs or no PVCs Comparison ECG Date: from (03/18/21) Change: no significant change MDM Narrative This patient comes in as described above she is had nausea vomiting diarrhea. This seems to be a recurrent issue for her. IV access was established and she was hydrated with IV normal saline bolus she was given Zofran 4 mg IV. her abdomen is nontender she has had imaging and colonoscopy recently for similar complaints. I did order an EKG and blood work. We also gave her Solu-Cortef IV given the fact that she may have adrenal insufficiency history as well. She was reassessed frequently. EKG does not show any significant ischemia or arrhythmia. Her QTC may be mildly prolonged however it is unchanged from previous. Her magnesium did come back low at 1.3 of we repleted this with 2 g IV. Potassium also came back low at 2.7 we have ordered IV K riders. Given her dehydration or electrolyte/metabolic abnormalities I do think she needs to be admitted for electrolyte replacement and rehydration. At this point her abdomen is benign I do not think she needs further imaging as this seems to be an ongo ing issue. We have consulted [facility] hospitalist to see her for these measures Continous cardiac monitoring: An order was placed in the ER for continuous cardiac monitoring. Upon my interpretation the patient was noted to be normal sinus rhythm a rate of 70 Impression & Plan Acute dehydration, CHRISTIAN (acute kidney injury), Hypokalemia, Hypomagnesemia, Secondary adrenal insufficiency, Diarrhea, Nausea & vomiting Discharge Plan Visit Data Chief Complaint: Abdominal Pain Stated Complaint: abd pain ED Provider: Colt Vila ED Midlevel Provider: Ron Aguayo Discharge Problem: Acute dehydration, CHRISTIAN (acute kidney injury), Hypokalemia, Hypomagnesemia, Secondary adrenal insufficiency, Diarrhea, Nausea & vomiting Patient Disposition: Admitted As Inpatient Discharge Instructions Interventions: ED Discharge Assessment Last Done: 03/23/21 18:07 Discharge Problem: Diarrhea Qualifiers: Diarrhea type: unspecified type Qualified Code(s): R19.7 - Diarrhea, unspecified Nausea & vomiting Qualifiers: Vomiting type: unspecified Vomiting Intractability: intractable Qualified Code(s): R11.2 - Nausea with vomiting, unspecified
[2021-03-23 14:59] LABS: Basophils # (auto) 0.02 K/uL (0-0.2); Basophils % (auto) 0.3 %; Eosinophils # (auto) 0.67 K/uL (0-0.5); Eosinophils % (auto) 9.3 %; Hematocrit (blood only) 38.3 % (37-47); Hemoglobin 12.9 g/dL (12.0-16.0); Immature Granulocytes # (auto) 0.03 K/uL (0.00-0.02); Immature Granulocytes % (auto) 0.4 %; Lymphocytes # (auto) 1.57 K/uL (1.2-3.4); Lymphocytes % (auto) 21.9 %; Mean Corpuscular Hemoglobin 28.4 pg (25-34); Mean Corpuscular Hgb Conc 33.7 g/dL (32-36); Mean Corpuscular Volume 84.2 fL (80-100); Mean Platelet Volume 11.7 fL (7.4-10.4); Monocytes # (auto) 0.62 K/uL (0.11-0.59); Monocytes % (auto) 8.6 %; Neutrophils # (auto) 4.26 K/uL (1.4-6.5); Neutrophils % (auto) 59.5 %; Platelet Count 205 K/uL (130-400); RDW Coefficient of Variation 16.3 % (11.5-14.5); RDW Standard Deviation 49.6 fL (36.4-46.3); Red Blood Count 4.55 M/uL (4.2-5.4); White Blood Count 7.17 K/uL (4.8-10.8)
[2021-03-23] MEDS ORDERED: SODIUM CHLORIDE 0.9% 1000ML 2,000 ML IV SCH (15:00)
--- NOTE | 2021-03-23 15:01 | Communication Note ---
Date of Service: March 23, 2021 I personally saw the patient. Patient's case was discussed with Dr. Vila, ED attending, and I participated in MDM. Please see attending documentation for full details.
[2021-03-23 15:16] LABS: Albumin Level 3.6 gm/dl (3.4-5.0); BUN Creatinine Ratio 6.6 (10-20); Calcium 9.4 mg/dl (8.5-10.1); Creatinine Clr Calc Pharmacy 30.8 ml/min; Est GFR (African American) 32.7 ml/min; Est GFR (Non-African American) 28.2 ml/min; Magnesium 1.3 mg/dl (1.8-2.4); Potassium 2.7 mmol/L (3.5-5.1)
[2021-03-23 15:19] LABS: Albumin Globulin Ratio 0.9 (0.9-2); Globulin 3.9 gm/dl (2.5-4.0); Phosphorus 2.3 mg/dl (2.5-4.9); Total Protein 7.5 gm/dl (6.4-8.2)
[2021-03-23] MEDS: POTASSIUM CHLORIDE / WTR 10 MEQ/100 ML PLCT IV SCH ×2 (15:51→16:53)
[2021-03-23] MEDS: MAGNESIUM SULFATE / D5W 1 GM/100 ML BAG IV SCH ×2 (16:52→17:59)
[2021-03-23] MEDS ORDERED: POTASSIUM CHLORIDE CRTAB 20 MEQ TABCR PO STA (17:23)
[2021-03-23] MEDS ORDERED: MAGNESIUM SULFATE / D5W 1 GM/100 ML BAG IV STA (17:23)
--- NOTE | 2021-03-23 17:56 | History & Physical Report ---
Date of Service March 23, 2021 Assessment & Plan (1) Diarrhea: Plan: Chronic- watery with mucous, no blood - colitis vs. adrenal insufficiency vs. medication (theophylline or other), - GI consult placed as patient had appointment on the - appreciate assistance - ? relation to theophylline dosing- her last 2 theophylline levels were >20 - Theophylline levels pending - ? adrenal insufficiency- this is common in this population as well. Continue Entocort - NPO except sips and medications, transition to bland liquid when able - Follow HCo3 level following volume resuscitation and diarrhea control - Imodium 2mg q8 prn for loose stools (2) Microscopic colitis: Plan: As above (3) Hypokalemia: Plan: Multiple etiologies - diarrhea +/- theophylline toxicity - theophylline level pending - 40 PO in EMD - 20 IV - BMP in the morning - telemetry monitoring overnight (4) Hypomagnesemia: Plan: stool loses primarily as well as decrease PO intake - 4 gm IV total as will likely continue to loose until diarrhea is controlled (5) CHRISTIAN (acute kidney injury): Plan: Likely related to water loss in stool- acute on chronic baseline is 1.7-1.8 - Continue with LR @125 ml/hr overnight (6) Adrenal adenoma: Plan: From [facility], [place], [facility] January - appreciate GI consultation (7) ACTH deficiency: Plan: Follows with Dr. Kingston endocrinology- likely related to her Keytruda for her NSCLC Continue stress dose steroids for now -100 mg IV hydrocortisone given in the EMD - hydrocortisone 50mg IV q8 hours for next 24 hours - can likely titrate down in the morning- hemodynamically stable at this point (8) Depression: Plan: Continue sertraline (9) Gastritis: Plan: Will hold esomeprazole at this time with diarrhea - continue Famotidine with steroid dosing (10) DM2 (diabetes mellitus, type 2): Plan: Aspart insulin lose sliding scale at this time - no carbohydrate coverage until dietary intake is stable - Last A1c 7.7% (11) COPD (chronic obstructive pulmonary disease): Plan: Continue albuterol, budesonide, and Combivent. - consider need for theophylline- nausea, vomiting, hypokalemia, and hypomag are also worsened with ho - GI symptoms may vary with Ho levels- her HR and rhythm are stable at this time- but previous admissions was noted with PAT/SVT - This dose was decreased in January - follow clinically - Has not followed with pulmonary- has no recent PFTs History of Present Illness Chief Complaint: nausea Primary Care Provider: Arthur Cruz 75 YOF with past medical history of: microscopic colitis, gout, persistent chronic diarrhea, adrenal insufficiency, adrenal adenoma, hypothyroidism, CKD IIIa, HTN, Depression, COPD, DM, NSCLC (2017) . Patient has been admitted to the hospital multiple times since January for continued nausea, vomiting and diarrhea. She has an appointment with GI on the 25 of March. Her most recent admissions are January 16, February 09-February 17, February 21, February 27, March 09, and March 18. She has had multiple CT scans and imaging consistent with pancolitis, started on Entocort and she has been on and off stress dose steroids each admission, and she also was recently treated last month for UTI with E. coli. She comes to the EMD for complaints of 3 days of unable to keep food down secondary to increase in diarrhea and nausea and vomiting. She states that when she does eat something within 5-10 minutes she is in the bathroom with diarrhea. The stools are mostly liquid without formation of particles per the patient. She also notes allot of mucous with her stools but no blood noted. There is no pain with these bowel movements or with eating. She feels some abdominal pressure at current. She feels these symptoms started in December 2020 and were associated with diaphoresis and abdominal cramping. She was a previous smoker and has since reported quitting in February. Patient will be admitted to continue with IV hydration, symptom control and continued replacing of electrolytes. Patient had a recent Colonoscopy on 02/12/21 with biopsies. She had small and large mouth diverticula in the entire colon: Biopsies from those sites were one fragment of tubular adenoma, microscopic colitis, sigmoid-tubular adenoma. Patient has received her COVID vaccines and her COVID test on admission is NEGATIVE. Allergies Allergy/AdvReac Type Severity Reaction Status Date / Time adhesive Allergy Unknown PULLS SKIN Verified 03/23/21 17:08 OFF Penicillins Allergy Unknown TONGUE Verified 03/23/21 17:08 SWELLING azithromycin AdvReac Unknown Nausea Verified 03/23/21 17:08 Home Medications Medication Instructions Recorded Confirmed Type folic acid 1 mg tablet 1 mg PO QAM 07/17/18 03/23/21 History ipratropium 20 mcg-albuterol 100 1 puff INHALATION Q4H PRN 07/17/18 03/23/21 History mcg/actuation mist for inhalation (Combivent Respimat) sertraline 100 mg tablet (Zoloft) 100 mg PO QAM 07/17/18 03/23/21 History furosemide 20 mg tablet (Lasix) 20 mg PO DAILY PRN 06/28/20 03/23/21 History albuterol sulfate 2.5 mg CONTINUOUS NEBULIZATION Q4 01/15/21 03/23/21 History PRN levothyroxine 112 mcg tablet 112 mcg PO DAILYBB 02/09/21 03/23/21 History (Synthroid) budesonide 3 mg 9 mg PO QAM 30 Days #90 ea 03/03/21 03/23/21 Rx capsule,delayed,extended release (Entocort EC) famotidine 20 mg tablet 20 mg PO BID 30 Days #60 tab 03/03/21 03/23/21 Rx hydrocortisone 10 mg tablet 10 mg PO PM 30 Days #30 tab 03/03/21 03/23/21 Rx (Cortef) hydrocortisone 10 mg tablet 20 mg PO QAM 30 Days #60 tab 03/03/21 03/23/21 Rx (Cortef) tramadol 50 mg tablet 50 mg PO Q4H PRN 30 Days #30 tab 03/03/21 03/23/21 Rx acetaminophen 325 mg tablet 650 mg PO QID PRN 03/09/21 03/23/21 History (Tylenol) diphenoxylate-atropine 2.5 1 tab PO Q3H PRN 03/09/21 03/23/21 History mg-0.025 mg tablet theophylline 300 mg 300 mg PO DAILY #0 tab 03/10/21 03/23/21 Rx tablet,extended release,12 hr esomeprazole magnesium 20 mg 20 mg PO Q48H 7 Days #0 cap 03/19/21 03/23/21 Rx capsule,delayed release Past Med/Surg History Medical History Abdominal pain ACTH deficiency Acute electrocardiogram changes Adrenal adenoma Arthritis Chest pain Chronic renal failure, stage 3 (moderate) COPD (chronic obstructive pulmonary disease) COVID-19 05/2020 Depression Diabetes Diffuse abdominal pain Fall Fever Hypoxia Injury of foot Lung cancer 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 Nausea, vomiting, and diarrhea Neutropenic fever Orthostatic hypotension Right knee DJD Secondary adrenal insufficiency Tachycardia Vomiting Surgical History Hx of right knee surgery Family History Mother Heart disease Father , in his 90s - old age COPD (chronic obstructive pulmonary disease) Other Diabetes Hypertension Lung disease Social History Smoking Status: Never smoker Tobacco Type: Cigarettes Age Started Using Tobacco: 19; Age Quit Using Tobacco: 75; packs per day: 0.5; Second Hand Exposure: No; Hx Alcohol Use: No Hx Substance Use: No Preferred Language: Bulgarian Communication Ability: Effective 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: No Beliefs That Will Affect Care: None marital status: / Current Living Situation: Family Current Living Situation Comment: Grandaghter lives with patient current occupational status: retired How many Children do You have: 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 No pain, or constipation Musculoskeletal: No joint pain, calf pain, swelling Neurologic: No weakness, numbness/tingling, or balance problems Psychiatric: (+) anxiety or depression Skin: No rash or itch Physical Exam Physical Exam: PHYSICAL EXAM: General: fatigued appearing, awake, alert, no apparent distress Head: Normocephalic, atraumatic ENT: PERRL, EOMI, no pharyngeal exudate, mucous membranes moist Neuro: AAO x 3, speech clear and appropriate, strength intact bilaterally 5/5, sensation intact and equal all extremities and dermatomes, no pronator drift Chest: equal rise and fall of the chest, no accessory muscle use, no heaves or thrills, Clear to auscultation, on room air, Cardiac: Regular rate and rhythm, telemetry reviewed, skin warm dry, cap refill <3 seconds, peripheral pulses +2 no JVD, no murmur, no edema GI: NABS x 4 quadrants, soft, nontender to palpation, no rebound, guarding or tenderness, nausea has since been controlled : Spontaneously voiding, no pain, no CVA tenderness, Extremities: Normal inspection, no peripheral edema or erythema, calfs nontender to palpation Psych: Normal mood and affect Skin: no rash or erythema Results & Data Results & Data ([facility]) Vital Signs (Past 12 Hours) Vital Signs Temp Pulse Resp BP Pulse Ox 03/23/21 16:30 87 21 135/80 93 03/23/21 16:00 90 15 151/90 H 94 03/23/21 15:30 89 22 138/70 93 03/23/21 15:00 85 19 146/74 H 93 03/23/21 14:30 103 H 24 126/79 97 03/23/21 14:20 37.0 C 104 H 20 138/100 96 03/23/21 14:19 104 H 20 138/100 Laboratory Results Abnormal lab results 03/23/21 03/23/21 Range/Units 14:26 14:29 RDW Std Deviation 49.6 H (36.4-46.3) fL RDW Coeff of Maye 16.3 H (11.5-14.5) % MPV 11.7 H (7.4-10.4) fL [place] # (Auto) 0.62 H (0.11-0.59) K/uL Eos # (Auto) 0.67 H (0-0.5) K/uL Immature Gran # (Auto) 0.03 H (0.00-0.02) K/uL Potassium 2.7 L (3.5-5.1) mmol/L Carbon Dioxide 20 L (21-32) mmol/L Anion Gap 14.0 H (3-11) Creatinine 1.73 H (0.6-1.2) mg/dl BUN/Creatinine Ratio 6.6 L (10-20) Glucose 195 H (70-99) mg/dl Phosphorus 2.3 L (2.5-4.9) mg/dl Magnesium 1.3 L (1.8-2.4) mg/dl Alkaline Phosphatase 128 H (45-117) U/L Diagnostic Findings NONE performed Medications Administered Home Medications folic acid 1 mg tablet 1 mg PO QAM 07/17/18 [History Confirmed 03/23/21] ipratropium 20 mcg-albuterol 100 mcg/actuation mist for inhalation (Combivent Respimat) 1 puff INHALATION Q4H PRN 07/17/18 [History Confirmed 03/23/21] sertraline 100 mg tablet (Zoloft) 100 mg PO QAM 07/17/18 [History Confirmed 03/23/21] furosemide 20 mg tablet (Lasix) 20 mg PO DAILY PRN 06/28/20 [History Confirmed 03/23/21] albuterol sulfate 2.5 mg CONTINUOUS NEBULIZATION Q4 PRN 01/15/21 [History Confi rmed 03/23/21] levothyroxine 112 mcg tablet (Synthroid) 112 mcg PO DAILYBB 02/09/21 [History Confirmed 03/23/21] budesonide 3 mg capsule,delayed,extended release (Entocort EC) 9 mg PO QAM 30 Days #90 ea 03/03/21 [Rx Confirmed 03/23/21] famotidine 20 mg tablet 20 mg PO BID 30 Days #60 tab 03/03/21 [Rx Confirmed 03/23/21] hydrocortisone 10 mg tablet (Cortef) 10 mg PO PM 30 Days #30 tab 03/03/21 [Rx Confirmed 03/23/21] hydrocortisone 10 mg tablet (Cortef) 20 mg PO QAM 30 Days #60 tab 03/03/21 [Rx Confirmed 03/23/21] tramadol 50 mg tablet 50 mg PO Q4H PRN 30 Days #30 tab 03/03/21 [Rx Confirmed 03/23/21] acetaminophen 325 mg tablet (Tylenol) 650 mg PO QID PRN 03/09/21 [History Confirmed 03/23/21] diphenoxylate-atropine 2.5 mg-0.025 mg tablet 1 tab PO Q3H PRN 03/09/21 [History Confirmed 03/23/21] theophylline 300 mg tablet,extended release,12 hr 300 mg PO DAILY #0 tab 03/10/21 [Rx Confirmed 03/23/21] esomeprazole magnesium 20 mg capsule,delayed release 20 mg PO Q48H 7 Days #0 cap 03/19/21 [Rx Confirmed 03/23/21] Active Medications Hydrocortisone Sodium Succinate (Hydrocortisone Sod Succinate 100 Mg/2 Ml Vial) 50 mg IV Q8 SIMONA Stop: 04/22/21 21:59 Lactated Ringer's (Lr) 1,000 mls @ 125 mls/hr IV .Q8H SIMONA Stop: 04/22/21 16:29 Magnesium Sulfate/Dextrose (Magnesium Sulfate / D5w) 1 gm in 100 mls @ 50 mls/hr IV Q2H STA Stop: 03/23/21 19:22 Discontinued Medications Hydrocortisone Sodium Succinate (Hydrocortisone Sod Succinate 100 Mg/2 Ml Vial) 100 mg IV NOW STA Stop: 03/23/21 14:54 Last Admin: 03/23/21 15:00 Dose: 100 mg Documented by: [id number] Sodium Chloride (Nss 1000ml) 2,000 mls @ 999 mls/hr IV .Q2H1M SIMONA Stop: 03/23/21 17:00 Last Infusion: 03/23/21 15:51 Dose: 0 mls/hr Documented by: [id number] Admin: 03/23/21 14:54 Dose: 999 mls/hr Documented by: [id number] Potassium Chloride (K Fuentes / Wtr) 10 meq in 100 mls @ 100 mls/hr IV Q1H SIMONA Stop: 03/23/21 17:29 Last Admin: 03/23/21 16:53 Dose: 100 mls/hr Documented by: [id number] Infusion: 03/23/21 16:53 Dose: 0 mls/hr Documented by: [id number] Admin: 03/23/21 15:51 Dose: 100 mls/hr Documented by: [id number] Magnesium Sulfate/Dextrose (Magnesium Sulfate / D5w) 1 gm in 100 mls @ 100 mls/hr IV Q1H SIMONA Stop: 03/23/21 17:25 Last Admin: 03/23/21 16:52 Dose: 100 mls/hr Documented by: [id number] Ondansetron HCl (Ondansetron Inj 2 Mg/Ml 2 Ml Vial) 4 mg IV NOW STA Stop: 03/23/21 14:47 Last Admin: 03/23/21 14:54 Dose: 4 mg Documented by: [id number] ECG Additional Comments: Poor data quality, interpretation may be adversely affected Normal sinus rhythm Nonspecific ST and T wave abnormality Abnormal ECG When compared with ECG of 18-MAR-2021 13:44, No significant change was found Code Status & VTE Plan Code Status CODE: FULL VTE: SCD's, Heparin sub q 5000 units q 8 VTE Prophylaxis Plan VTE Prophylaxis will be ordered: Yes Supervising Physician Co-Signing Physician Notes During face to face encounter with patient, obtained a physical and history. My history and physcial examination did not differ from above. I reviewed above note and agree with it. I discussed plan with OBINNA Fenton and the patient. All questions were answered. will admit for diarrhea and will replete volume loss. will consult GI for further input. PG Care Time/CCT Total # of Minutes Spent Total Time Spent with Patient: Total time spent is greater than 50% in coordination of care (as documented) at patient's floor/unit and/or counseling patient: Coding Level of Care Code 94881 Initial Inpt Care Lvl 3 Diagnoses Diarrhea R19.7 Microscopic colitis K52.839 Hypokalemia E87.6 Hypomagnesemia E83.42 CHRISTIAN (acute kidney injury) N17.9 Adrenal adenoma D35.00 ACTH deficiency E23.6 Depression F32.9 Gastritis K29.70 DM2 (diabetes mellitus, type 2) E11.9 COPD (chronic obstructive pulmonary disease) J44.9
[2021-03-23] MEDS ORDERED: GLUCOSE 40% GEL 15 GM TUBE PO PRN (18:34)
[2021-03-23] MEDS ORDERED: traMADol HCL 50 MG TABLET PO PRN (18:34)
[2021-03-23] MEDS ORDERED: CARBOHYDRATES FOR HYPOGLYCEMIA PO PRN (18:34)
[2021-03-23] MEDS ORDERED: ACETAMINOPHEN 325 MG TAB PO PRN (18:34)
[2021-03-23] MEDS ORDERED: ALBUTEROL 0.083% NEBU SOLN 3 ML VIAL INH PRN (18:34)
[2021-03-23] MEDS ORDERED: DEXTROSE 50% 50 ML SYRINGE IV PRN (18:34)
[2021-03-23] MEDS ORDERED: ONDANSETRON INJ 2 MG/ML 2 ML VIAL IV PRN (18:34)
[2021-03-23] MEDS ORDERED: IPRATROPIUM BROMIDE/ALBUTEROL respimat INH INH PRN (18:34)
[2021-03-23] MEDS ORDERED: LOPERAMIDE HCL 2 MG CAP PO PRN (18:34)
[2021-03-23] MEDS ORDERED: GLUCOSE 10 TABS/TUBE PO PRN (18:34)
[2021-03-23] MEDS ORDERED: GLUCAGON FOR INJ 1 MG VIAL SQ PRN (18:34)
[2021-03-23] MEDS: LACTATED RINGER'S 1,000 ML IV SCH (18:41)
[2021-03-23] MEDS ORDERED: Albuterol HFA 8 GM Inhaler (Combivent Respimat P&T Subs) INH PRN (18:55)
[2021-03-23] MEDS ORDERED: Ipratropium HFA Inhaler (Combivent Respimat P&T Subs) INH PRN (18:56)
[2021-03-23] MEDS ORDERED: HYDROCORTISONE SOD SUCCINATE 100 MG/2 ML VIAL IV SCH (22:00)
[2021-03-24] MEDS: FAMOTIDINE 20 MG TAB PO SCH ×3 (01:31→20:30)
[2021-03-24] MEDS: HEPARIN SOD 5,000 UNIT/0.5 ML VIAL SQ SCH ×4 (01:32→20:31)
[2021-03-24] MEDS: INSULIN ASPART 100 UNITS/ML 3 ML PEN SC SCH ×5 (01:32→20:31)
[2021-03-24] MEDS: HYDROCORTISONE SOD 50 MG in SYRINGE 0 ML IV SCH ×2 (01:33→08:07)
[2021-03-24] MEDS: LACTATED RINGER'S 1,000 ML IV SCH ×3 (01:33→20:35)
[2021-03-24] MEDS: LEVOTHYROXINE SODIUM 112 MCG TABLET PO SCH (05:56)
[2021-03-24 07:28] LABS: Basophils # (auto) 0.01 K/uL (0-0.2); Basophils % (auto) 0.2 %; Eosinophils # (auto) 0.03 K/uL (0-0.5); Eosinophils % (auto) 0.7 %; Hemoglobin 10.7 g/dL (12.0-16.0); Immature Granulocytes # (auto) 0.03 K/uL (0.00-0.02); Immature Granulocytes % (auto) 0.7 %; Lymphocytes # (auto) 0.84 K/uL (1.2-3.4); Mean Corpuscular Hemoglobin 28.5 pg (25-34); Mean Corpuscular Hgb Conc 33.4 g/dL (32-36); Mean Corpuscular Volume 85.3 fL (80-100); Mean Platelet Volume 11.1 fL (7.4-10.4); Monocytes # (auto) 0.18 K/uL (0.11-0.59); Monocytes % (auto) 4.3 %; Neutrophils # (auto) 3.11 K/uL (1.4-6.5); Neutrophils % (auto) 74.1 %; Nucleated RBC # (auto) 0.02 K/uL (0-0); Nucleated RBC % (auto) 0.5 %; Platelet Count 187 K/uL (130-400); RDW Coefficient of Variation 16.6 % (11.5-14.5); RDW Standard Deviation 52.3 fL (36.4-46.3); Red Blood Count 3.75 M/uL (4.2-5.4)
[2021-03-24 08:05] LABS: BUN Creatinine Ratio 6.8 (10-20); Calcium 8.6 mg/dl (8.5-10.1); Creatinine Clr Calc Pharmacy 34.2 ml/min; Est GFR (Non-African American) 31.9 ml/min; Magnesium 1.9 mg/dl (1.8-2.4); Potassium 3.2 mmol/L (3.5-5.1)
[2021-03-24] MEDS: BUDESONIDE EC 3 MG CAP PO SCH (08:06)
[2021-03-24] MEDS: FOLIC ACID 1 MG TAB PO SCH (08:06)
[2021-03-24] MEDS: SERTRALINE HCL 100 MG TABLET PO SCH (08:06)
[2021-03-24] MEDS: DIPHENOXYLATE/ATROPINE 2.5/0.025MG TAB PO PRN ×2 (08:06→14:05)
--- NOTE | 2021-03-24 08:29 | Electrocardiogram Report ---
Test Reason : Blood Pressure : / mmHG Vent. Rate : 085 BPM Atrial Rate : 085 BPM P-R Int : 140 ms QRS Dur : 092 ms QT Int : 402 ms P-R-T Axes : 062 -04 045 degrees QTc Int : 478 ms Poor data quality, interpretation may be adversely affected Normal sinus rhythm Diffuse Minor Nonspecific ST and T wave abnormality Abnormal ECG When compared with ECG of 18-MAR-2021 13:44, No significant change was found Confirmed by Marlo Quick ([id number]) on 03/24/2021 8:29:11 AM Referred By: REFERRED SELF Confirmed By:Marlo Quick
[2021-03-24] MEDS ORDERED: POTASSIUM CHLORIDE CRTAB 20 MEQ TABCR PO STA (08:36)
[2021-03-24] MEDS ORDERED: THEOPHYLLINE 300MG EXTENDED REL TAB PO SCH (09:00)
[2021-03-24] MEDS ORDERED: MAGNESIUM SULFATE / D5W 1 GM/100 ML BAG IV ONE (09:00)
[2021-03-24] MEDS: DIPHENOXYLATE/ATROPINE 2.5/0.025MG TAB PO SCH (09:34)
--- NOTE | 2021-03-24 09:46 | Gastrointestinal Consultation ---
Date of Consultation March 24, 2021 Assessment & Plan (1) Microscopic colitis: -Lomotil 2mg QAM, and up to 6 additional tablets daily prn diarrhea. -Would recommend obtaining Budesonide from home to be administered during this admission with a total of 9 mg po daily. Would continue this for 8 weeks, but would also emphasize the the Lomotil use and lifestyle changes. -Lactose-free diet. -Check Celiac panel due to known occurrence of overlap with microscopic colitis patients. -Avoid NSAIDs. -Supportive care per primary team. Supervising Physician Co-Signing Physician Notes Agree with HECTOR Ragsdale as above Abd: Soft, NT, ND, +BS Continue current therapy and supportive care Will follow clinical course and make further recommendations as needed. History of Present Illness Attending Physician: Natasha Manriquez MD History of Present Illness Patient is a 75 yo female with PMH of COPD, DM2, gastritis, depression, arthiritis, HtN, CKD3, ACTH deficiency, hypothyroidism, syncope, and gout who presents with diarrhea. She was recently diagnosed with microscopic colitis kaylee ng a recent admission. Due to insurance issues, there was reportedly a delay in receiving Budesonide. Once she did receive the medication, she notes that her home health care worker was holding that one due to a potential interaction with another medication. She did not end up taking any Budesonide because of this. She was readmitted one after her diagnosis and presents again with diarrhea. She is not on a 100% lactose-free diet--she just avoided drinking milk. She reports 5 episodes of diarrhea since admission. She has only received 2 mg of Imodium during this admission thus far and it is unclear how much she was taking at home. No associated symptoms. No GI bleeding. Last colonoscopy on 02/12/21. Allergies Allergy/AdvReac Type Severity Reaction Status Date / Time adhesive Allergy Unknown PULLS SKIN Verified 03/23/21 17:08 OFF Penicillins Allergy Unknown TONGUE Verified 03/23/21 17:08 SWELLING azithromycin AdvReac Unknown Nausea Verified 03/23/21 17:08 Home Medications Medication Instructions Recorded Confirmed Type folic acid 1 mg tablet 1 mg PO QAM 07/17/18 03/23/21 History ipratropium 20 mcg-albuterol 100 1 puff INHALATION Q4H PRN 07/17/18 03/23/21 History mcg/actuation mist for inhalation (Combivent Respimat) sertraline 100 mg tablet (Zoloft) 100 mg PO QAM 07/17/18 03/23/21 History furosemide 20 mg tablet (Lasix) 20 mg PO DAILY PRN 06/28/20 03/23/21 History albuterol sulfate 2.5 mg CONTINUOUS NEBULIZATION Q4 01/15/21 03/23/21 History PRN levothyroxine 112 mcg tablet 112 mcg PO DAILYBB 02/09/21 03/23/21 History (Synthroid) budesonide 3 mg 9 mg PO QAM 30 Days #90 ea 03/03/21 03/23/21 Rx capsule,delayed,extended release (Entocort EC) famotidine 20 mg tablet 20 mg PO BID 30 Days #60 tab 03/03/21 03/23/21 Rx hydrocortisone 10 mg tablet 10 mg PO PM 30 Days #30 tab 03/03/21 03/23/21 Rx (Cortef) hydrocortisone 10 mg tablet 20 mg PO QAM 30 Days #60 tab 03/03/21 03/23/21 Rx (Cortef) tramadol 50 mg tablet 50 mg PO Q4H PRN 30 Days #30 tab 03/03/21 03/23/21 Rx acetaminophen 325 mg tablet 650 mg PO QID PRN 03/09/21 03/23/21 History (Tylenol) diphenoxylate-atropine 2.5 1 tab PO Q3H PRN 03/09/21 03/23/21 History mg-0.025 mg tablet theophylline 300 mg 300 mg PO DAILY #0 tab 03/10/21 03/23/21 Rx tablet,extended release,12 hr esomeprazole magnesium 20 mg 20 mg PO Q48H 7 Days #0 cap 03/19/21 03/23/21 Rx capsule,delayed release Patient History Medical History Abdominal pain ACTH deficiency Acute electrocardiogram changes Adrenal adenoma Arthritis Chest pain Chronic renal failure, stage 3 (moderate) COPD (chronic obstructive pulmonary disease) COVID-19 05/2020 Depression Diabetes Diffuse abdominal pain Fall Fever Hypoxia Injury of foot Lung cancer 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 Nausea, vomiting, and diarrhea Neutropenic fever Orthostatic hypotension Right knee DJD Secondary adrenal insufficiency Tachycardia Vomiting Surgical History Hx of right knee surgery Family History Mother Heart disease Father , in his 90s - old age COPD (chronic obstructive pulmonary disease) Other Diabetes Hypertension Lung disease Social History Smoking Status: Never smoker Tobacco Type: Cigarettes Age Started Using Tobacco: 19; Age Quit Using Tobacco: 75; packs per day: 0.5; Second Hand Exposure: No; Hx Alcohol Use: No Hx Substance Use: No Preferred Language: Palauan Communication Ability: Effective 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 Process 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 Required: No Beliefs That Will Affect Care: None marital status: / Current Living Situation: Family Current Living Situation Comment: Grandaghter lives with patient current occupational status: retired How many Children do You have: 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 Feels Safe at Home: Yes Assistive Devices: Oxygen - at Night and Walker Review of Systems Constitutional: no fever and no chills Respiratory: no cough and no dyspnea Cardiovascular: no chest pain Gastrointestinal: + cramping and + diarrhea/loose stools; no blood in stools Psychiatric: no problem reported Hematologic / Lymphatic: no unexplained weight loss Physical Exam Constitutional: WD/WN, vitals as above Respiratory: normal respiratory effort, lungs clear to auscultation Cardiovascular: RRR, no murmur, no edema Gastrointestinal (Abdomen): normal bowel sounds, soft, nontender, no hepatosplenomegaly Musculoskeletal: Head/Neck/Chest: normocephalic Psychiatric: Orientation: alert and oriented x 3 Results & Data ([facility]) Vital Signs (Past 12 Hours) Vital Signs Temp Pulse Pulse Resp BP Pulse Ox 03/24/21 08:32 36.8 C 79 18 135/74 97 03/24/21 04:00 36.3 C L 84 22 121/77 93 03/24/21 02:43 85 03/23/21 22:35 36.7 C 91 H 16 114/62 95 PG Care Time/CCT Total # of Minutes Spent Total Time Spent with Patient: Total time spent is greater than 50% in coordination of care (as documented) at patient's floor/unit and/or counseling patient: Coding Level of Care Code 41157 Initial Inpt Care Lvl 3 Diagnoses Microscopic colitis K52.839
[2021-03-24] MEDS: HYDROCORTISONE 10 MG TAB PO SCH (16:13)
--- NOTE | 2021-03-24 17:13 | Hospitalist Progress Note ---
Date of Service March 24, 2021 Assessment & Plan (1) Diarrhea: Plan: Chronic- watery with mucous, no blood - colitis vs. adrenal insufficiency vs. medication (theophylline or other), - GI consult appreciated-recommends lactose free diet which patient had not been following, starting Entocort which was just started this morning and is to continue for 9 weeks, and increased use of Lomotil -It is possible the diarrhea is in relation to theophylline dosing- her last 2 theophylline levels were >20-hold theophylline now This could also be related to adrenal insufficiency as she does always seem to temporarily improve in the hospital when given stress dose steroids-discontinue IV hydrocortisone and revert back to home hydrocortisone dosing 20 mg in the morning and 10 mg in the afternoon and observe -Continue Lomotil and encouraged to increase use -Replace electrolytes-give potassium and magnesium (2) Microscopic colitis: Plan: As above (3) Hypokalemia: Plan: Multiple etiologies - diarrhea +/- theophylline toxicity - theophylline level elevated as above Replace again today with potassium chloride Follow BMP and magnesium levels in the morning (4) Hypomagnesemia: Plan: stool loses primarily as well as decrease PO intake -4 g of IV magnesium were given upon admission and now is improved Give 1 g of IV magnesium today Follow level in the morning (5) CHRISTIAN (acute kidney injury): Plan: Likely related to water loss in stool- acute on chronic baseline is 1.7-1.8 Creatinine improved today down to 1.5 Follow BMP Decrease IV fluids to 70 mL/h of LR (6) Adrenal adenoma: Plan: Noted to be stable in size on left adrenal gland from CT abdomen/pelvis on 03/18 Follow-up with endocrinology as an outpatient (7) ACTH deficiency: Plan: Follows with Dr. Kingston endocrinology- likely related to her Keytruda for her NSCLC Was given IV stress dose steroids upon admission We will now discontinue these and revert back to home p.o. dosing as above Blood pressures are stable (8) Depression: Plan: Continue sertraline (9) Gastritis: Plan: Will hold esomeprazole at this time with diarrhea-taper off completely - continue Famotidine (10) DM2 (diabetes mellitus, type 2): Plan: With some intermittent hyperglycemia - Last A1c 7.7% Continue NovoLog sliding scale Not on medication at home (11) COPD (chronic obstructive pulmonary disease): Plan: No acute issues Continue albuterol, budesonide, and Combivent. - consider need for theophylline- nausea, vomiting, hypokalemia, and hypomag are also worsened with storm - GI symptoms may vary with Storm levels- her HR and rhythm are stable at this time- but previous admissions was noted with PAT/SVT - This dose was decreased in February down to 300 mg once daily Theophylline level still elevated at 22-holding theophylline and consider decreasing dose down to 200 mg once daily upon discharge with close monitoring of levels - follow clinically - Has not followed with pulmonary- has no recent PFTs Plan: DVT prophylaxis-SQ heparin Disposition-continued stay on medical floor telemetry Admission and Anticipated Discharge Date Admission Date: March 23, 2021 Subjective Patient reports still with multiple episodes of diarrhea today, but nausea/vomiting has improved and she is tolerating food. She took Lomotil this morning and reports she takes it twice a day every day at home. She still has not yet started her Entocort until her first dose this morning. She thinks she was told to wean off something else first and then to start the Entocort. I reviewed the discharge summary and there is no mention of waiting to start the Entocort, but htere is mention of weaning off the PPI. Telemetry with normal sinus rhythm and sinus tachycardia with rates mostly controlled with rates to the 130s when out of bed Review of Systems Review of Systems: All systems reviewed & are unremarkable except as noted in HPI & below Physical Exam Constitutional: WD/WN, vitals as above Eyes: + anicteric sclerae ENMT: external ear and nose normal, oropharynx normal Neck: trachea midline, no thyromegaly Respiratory: normal respiratory effort, lungs clear to auscultation Cardiovascular: RRR, no murmur, no edema Chest (Breasts): Chest: normal inspection of chest Gastrointestinal (Abdomen): normal bowel sounds, soft, nontender, no hepatosplenomegaly Musculoskeletal: Extremities: extremities normal to inspection; no cyanosis and no clubbing Skin: no rashes, warm and dry Neurologic: moves all extremities and awake; no focal motor deficits Psychiatric: A+Ox3, euthymic affect Lymphatic: no lymphedema Results & Data Results & Data ([facility]) Vital Signs (Past 12 Hours) Vital Signs Temp Pulse Pulse Resp BP Pulse Ox 03/24/21 15:21 115 H 03/24/21 15:17 37.3 C 96 H 20 108/62 95 03/24/21 11:32 37.2 C 83 20 130/70 93 03/24/21 08:32 36.8 C 79 18 135/74 97 03/24/21 07:30 78 Laboratory Results Laboratory values reviewed Theophylline level elevated at 22 Creatinine down to 1.56, potassium low at 3.2, magnesium 1.9 PG Care Time/CCT Total # of Minutes Spent Total Time Spent with Patient: Total time spent is greater than 50% in coordination of care (as documented) at patient's floor/unit and/or counseling patient: Coding Level of Care Code 39415 Subseq Hosp Care Lvl 3 Diagnoses Diarrhea R19.7 Diarrhea type: unspecified type Microscopic colitis K52.839 Hypokalemia E87.6 Hypomagnesemia E83.42 CHRISTIAN (acute kidney injury) N17.9 Adrenal adenoma D35.00 ACTH deficiency E23.6 Depression F32.9 Gastritis K29.70 DM2 (diabetes mellitus, type 2) E11.9 COPD (chronic obstructive pulmonary disease) J44.9 (1) Diarrhea Diarrhea type: unspecified type Qualified Code(s): R19.7 - Diarrhea, unspecified
--- NOTE | 2021-03-24 18:45 | Electrocardiogram Report ---
Test Reason : Blood Pressure : / mmHG Vent. Rate : 097 BPM Atrial Rate : 097 BPM P-R Int : 124 ms QRS Dur : 094 ms QT Int : 372 ms P-R-T Axes : 048 003 010 degrees QTc Int : 472 ms Normal sinus rhythm Low voltage QRS Nonspecific ST and T wave abnormality Abnormal ECG When compared with ECG of 23-MAR-2021 14:59, No significant change was found Confirmed by Willie Freitas ([id number]) on 03/24/2021 6:45:32 PM Referred By: REFERRED SELF Confirmed By:Anthony Freitas
[2021-03-25] MEDS: LEVOTHYROXINE SODIUM 112 MCG TABLET PO SCH (06:00)
[2021-03-25] MEDS: HEPARIN SOD 5,000 UNIT/0.5 ML VIAL SQ SCH ×3 (06:00→20:01)
[2021-03-25] MEDS: DIPHENOXYLATE/ATROPINE 2.5/0.025MG TAB PO PRN (06:10)
[2021-03-25 07:14] LABS: Basophils # (auto) 0.01 K/uL (0-0.2); Basophils % (auto) 0.2 %; Eosinophils # (auto) 0.36 K/uL (0-0.5); Eosinophils % (auto) 8.6 %; Hematocrit (blood only) 29.9 % (37-47); Hemoglobin 9.7 g/dL (12.0-16.0); Immature Granulocytes # (auto) 0.01 K/uL (0.00-0.02); Immature Granulocytes % (auto) 0.2 %; Lymphocytes # (auto) 1.71 K/uL (1.2-3.4); Mean Corpuscular Hgb Conc 32.4 g/dL (32-36); Mean Corpuscular Volume 86.4 fL (80-100); Mean Platelet Volume 11.1 fL (7.4-10.4); Monocytes # (auto) 0.31 K/uL (0.11-0.59); Monocytes % (auto) 7.4 %; Neutrophils # (auto) 1.77 K/uL (1.4-6.5); Neutrophils % (auto) 42.6 %; Platelet Count 169 K/uL (130-400); RDW Standard Deviation 53.5 fL (36.4-46.3); Red Blood Count 3.46 M/uL (4.2-5.4); White Blood Count 4.17 K/uL (4.8-10.8)
[2021-03-25 07:53] LABS: BUN Creatinine Ratio 8.1 (10-20); Calcium 8.2 mg/dl (8.5-10.1); Creatinine Clr Calc Pharmacy 31.2 ml/min; Est GFR (African American) 32.9 ml/min; Est GFR (Non-African American) 28.4 ml/min; Magnesium 1.9 mg/dl (1.8-2.4); Potassium 2.7 mmol/L (3.5-5.1)
[2021-03-25] MEDS ORDERED: POTASSIUM CHLORIDE CRTAB 20 MEQ TABCR PO STA (08:09)
[2021-03-25] MEDS: POTASSIUM CHLORIDE / WTR 10 MEQ/100 ML PLCT IV SCH ×4 (09:02→13:25)
[2021-03-25] MEDS: FAMOTIDINE 20 MG TAB PO SCH ×2 (09:03→20:00)
[2021-03-25] MEDS: SERTRALINE HCL 100 MG TABLET PO SCH (09:03)
[2021-03-25] MEDS: FOLIC ACID 1 MG TAB PO SCH (09:03)
[2021-03-25] MEDS: DIPHENOXYLATE/ATROPINE 2.5/0.025MG TAB PO SCH (09:03)
[2021-03-25] MEDS: BUDESONIDE EC 3 MG CAP PO SCH (09:03)
[2021-03-25] MEDS: HYDROCORTISONE 10 MG TAB PO SCH ×2 (09:03→15:36)
[2021-03-25] MEDS: INSULIN ASPART 100 UNITS/ML 3 ML PEN SC SCH ×4 (09:39→19:58)
[2021-03-25] MEDS: LACTATED RINGER'S 1,000 ML IV SCH (10:47)
--- NOTE | 2021-03-25 11:25 | Gastroenterology Progress Note ---
Date of Service March 25, 2021 Assessment & Plan (1) Microscopic colitis: Plan: -Lomotil 2mg, and up to 6 additional tablets daily prn diarrhea. -Budesonide 9 mg po daily x 8 weeks. -Lactose-free diet. -Avoid NSAIDs. -Supportive care per primary team. Admission and Anticipated Discharge Date Admission Date: March 23, 2021 Supervising Physician Co-Signing Physician Notes Agree with HECTOR Ragsdale Doing much better today with only a single BM Abd: Soft, NT, ND, +BS Continue current therapy and supportive care. Followup in our office in 2 weeks following discharge. Subjective Patient is a 75 yo female with diarrhea and microscopic colitis. She is very tired this morning and minimally participates with my evaluation. She notes that her diarrhea has slowed. She denies pain or discomfort at present. Yesterday was her first dose of Budesonide. Review of Systems Gastrointestinal: + diarrhea/loose stools (improving); no abdominal pain Physical Exam Constitutional: well developed Respiratory: normal respiratory effort Gastrointestinal (Abdomen): Inspection/Auscultation: abdomen normal to inspection and normal bowel sounds Percussion/Palpation: abdomen soft; abdomen nontender Results & Data Results & Data ([facility]) Vital Signs (Past 12 Hours) Vital Signs Temp Pulse Pulse Resp BP Pulse Ox 03/25/21 08:00 69 03/25/21 07:28 36.9 C 69 18 111/69 97 03/25/21 03:05 36.9 C 72 20 130/75 98 03/25/21 01:00 73 PG Care Time/CCT Total # of Minutes Spent Total Time Spent with Patient: Total time spent is greater than 50% in coordination of care (as documented) at patient's floor/unit and/or counseling patient: Coding Level of Care Code 55740 Subseq Hosp Care Lvl 2 Diagnoses Microscopic colitis K52.839
--- NOTE | 2021-03-25 22:11 | Hospitalist Progress Note ---
Date of Service March 25, 2021 Assessment & Plan (1) Diarrhea: Plan: Chronic- watery with mucous, no blood - colitis vs. adrenal insufficiency vs. medication (theophylline or other), - GI consult appreciated-recommends lactose free diet which patient had not been following, starting Entocort which was just started this morning and is to continue for 9 weeks, checking a celiac panel, and encouraging increased use of Lomotil -It is possible the diarrhea is in relation to theophylline dosing- her last 2 theophylline levels were >20-continue to hold theophylline now This could also be related to adrenal insufficiency as she does always seem to temporarily improve in the hospital when given stress dose steroids-discontinue IV hydrocortisone and revert back to home hydrocortisone dosing 20 mg in the morning and 10 mg in the afternoon and observe Diarrhea is now significantly improved -Continue lactose-free diet -Await results of celiac panel -Continue Entocort 9 mg daily p.o. x9 weeks and follow-up with GI as an outpatient -Continue Lomotil and encouraged to increase use up to six times a day as needed -Replace electrolytes-give potassium again today -Holding theophylline and will restart at lower dose (2) Microscopic colitis: Plan: As above (3) Hypokalemia: Plan: Multiple etiologies - diarrhea +/- theophylline toxicity - theophylline level elevated as above-theophylline has been held Potassium very low today at 2.7 Replace again today with potassium chloride both p.o. and IV Follow BMP and magnesium levels in the morning -Maintain monitoring on telemetry (4) Hypomagnesemia: Plan: stool losses primarily as well as decrease PO intake-now improved after replacement Follow level in the morning (5) CHRISTIAN (acute kidney injury): Plan: Likely related to water loss in stool- acute on chronic Acute kidney injury now resolved baseline is 1.7-1.8 Creatinine at baseline today Follow BMP DC IV fluids (6) Adrenal adenoma: Plan: Noted to be stable in size on left adrenal gland from CT abdomen/pelvis on 03/18 Follow-up with endocrinology as an outpatient (7) ACTH deficiency: Plan: Follows with Dr. Kingston endocrinology- likely related to her Keytruda for her NSCLC Was given IV stress dose steroids upon admission Continue home p.o. dosing of hydrocortisone as above Blood pressures are stable Suggest follow-up with endocrinology after discharge (8) Depression: Plan: Continue sertraline (9) Gastritis: Plan: Will hold esomeprazole at this time with diarrhea-taper off completely - continue Famotidine (10) DM2 (diabetes mellitus, type 2): Plan: With some intermittent hyperglycemia - Last A1c 7.7% Continue NovoLog sliding scale-lower range down to 100-140 Not on medication at home (11) COPD (chronic obstructive pulmonary disease): Plan: No acute issues Continue albuterol, budesonide, and Combivent. - consider need for theophylline- nausea, vomiting, hypokalemia, and hypomag are also worsened with storm - GI symptoms may vary with Storm levels- her HR and rhythm are stable at this time- but previous admissions was noted with PAT/SVT - This dose was decreased in February down to 300 mg once daily Theophylline level still elevated at 22-holding theophylline and consider decreasing dose down to 200 mg once daily upon discharge with close monitoring of levels - follow clinically - Has not followed with pulmonary- has no recent PFTs (12) Anemia: Plan: Normocytic anemia Check iron studies, B12, folate in the morning (13) Chronic renal failure, stage 3 (moderate): Plan: as above (14) Hypothyroidism: Plan: With baseline autoimmune thyroid disease Free T4 level was normal in 01/2021 but TSH elevated at 9 Continue home dose of levothyroxine 112 mcg daily Check TSH and free T4, free T3 in the morning Plan: DVT prophylaxis-SQ heparin Disposition-continued stay on medical floor with telemetry, but possible discharge home tomorrow if potassium improved and diarrhea still resolved Admission and Anticipated Discharge Date Admission Date: March 23, 2021 Subjective Patient feeling much improved today. She is only had one loose stool all day and only took Lomotil once this morning. She denies any abdominal pain. No nausea or vomiting. She is eating well. She denies any shortness of breath or chest pains. Telemetry with normal sinus rhythm with rates in the 60s to 90s. Review of Systems Review of Systems: All systems reviewed & are unremarkable except as noted in HPI & below Physical Exam Constitutional: WD/WN, vitals as above Eyes: + anicteric sclerae Neck: trachea midline, no thyromegaly Respiratory: normal respiratory effort, lungs clear to auscultation Cardiovascular: RRR, no murmur, no edema Chest (Breasts): Chest: normal inspection of chest Gastrointestinal (Abdomen): normal bowel sounds, soft, nontender, no hepatosplenomegaly Musculoskeletal: Extremities: extremities normal to inspection; no cyanosis and no clubbing Skin: no rashes, warm and dry Neurologic: moves all extremities and awake; no focal motor deficits Psychiatric: A+Ox3, euthymic affect Lymphatic: no lymphedema Results & Data Results & Data ([facility]) Vital Signs (Past 12 Hours) Vital Signs Temp Pulse Pulse Resp BP Pulse Ox 03/25/21 18:29 37.0 C 78 18 126/71 97 03/25/21 15:17 36.8 C 78 18 116/67 97 03/25/21 15:00 77 03/25/21 11:37 36.8 C 69 18 133/73 98 Laboratory Results 03/25/21 06:46 03/25/21 06:46 Magnesium 1.9 Celiac panel-pending PG Care Time/CCT Total # of Minutes Spent Total Time Spent with Patient: Total time spent is greater than 50% in coordination of care (as documented) at patient's floor/unit and/or counseling patient: Coding Level of Care Code 19811 Subseq Hosp Care Lvl 3 Diagnoses Diarrhea R19.7 Diarrhea type: unspecified type Microscopic colitis K52.839 Hypokalemia E87.6 Hypomagnesemia E83.42 CHRISTIAN (acute kidney injury) N17.9 Adrenal adenoma D35.00 ACTH deficiency E23.6 Depression F32.9 Gastritis K29.70 DM2 (diabetes mellitus, type 2) E11.9 COPD (chronic obstructive pulmonary disease) J44.9 Anemia D64.9 Chronic renal failure, stage 3 (moderate) N18.30 Chronic kidney disease stage 3 subtype: unspecified whether 3a or 3b Hypothyroidism E03.9 (1) Chronic renal failure, stage 3 (moderate) Chronic kidney disease stage 3 subtype: unspecified whether 3a or 3b Qualified Code(s): N18.30 - Chronic kidney disease, stage 3 unspecified (2) Diarrhea Diarrhea type: unspecified type Qualified Code(s): R19.7 - Diarrhea, unspecified
[2021-03-26 02:07] LABS: IgA Serum 389 mg/dL (70-320); Tis Trans IgA 1 U/mL
[2021-03-26] MEDS: HEPARIN SOD 5,000 UNIT/0.5 ML VIAL SQ SCH ×3 (06:10→20:50)
[2021-03-26] MEDS: LEVOTHYROXINE SODIUM 112 MCG TABLET PO SCH (06:11)
[2021-03-26 07:44] LABS: Basophils # (auto) 0.01 K/uL (0-0.2); Basophils % (auto) 0.2 %; Eosinophils # (auto) 0.36 K/uL (0-0.5); Hematocrit (blood only) 28.9 % (37-47); Hemoglobin 9.3 g/dL (12.0-16.0); Immature Granulocytes # (auto) 0.03 K/uL (0.00-0.02); Immature Granulocytes % (auto) 0.7 %; Lymphocytes # (auto) 1.69 K/uL (1.2-3.4); Lymphocytes % (auto) 42.1 %; Mean Corpuscular Hemoglobin 27.8 pg (25-34); Mean Corpuscular Hgb Conc 32.2 g/dL (32-36); Mean Corpuscular Volume 86.5 fL (80-100); Mean Platelet Volume 10.3 fL (7.4-10.4); Monocytes # (auto) 0.38 K/uL (0.11-0.59); Monocytes % (auto) 9.5 %; Neutrophils # (auto) 1.54 K/uL (1.4-6.5); Neutrophils % (auto) 38.5 %; Platelet Count 153 K/uL (130-400); RDW Coefficient of Variation 17.3 % (11.5-14.5); RDW Standard Deviation 54.8 fL (36.4-46.3); Red Blood Count 3.34 M/uL (4.2-5.4); White Blood Count 4.01 K/uL (4.8-10.8)
[2021-03-26] MEDS: INSULIN ASPART 100 UNITS/ML 3 ML PEN SC SCH ×4 (08:00→20:50)
[2021-03-26 08:25] LABS: BUN Creatinine Ratio 9.8 (10-20); Calcium 8.4 mg/dl (8.5-10.1); Est GFR (African American) 42.9 ml/min; Magnesium 1.9 mg/dl (1.8-2.4); Potassium 3.4 mmol/L (3.5-5.1)
[2021-03-26] MEDS ORDERED: POTASSIUM CHLORIDE CRTAB 20 MEQ TABCR PO STA ×2 (08:29→18:36)
[2021-03-26 08:41] LABS: Ferritin 976.3 ng/ml (8-388); T4 Free Thyroxine 1.11 ng/dl (0.8-1.6); Thyroid Stimulating Hormone 0.667 uIu/ml (0.300-4.500)
[2021-03-26] MEDS ORDERED: MAGNESIUM SULFATE / D5W 1 GM/100 ML BAG IV ONE (08:45)
[2021-03-26] MEDS: FOLIC ACID 1 MG TAB PO SCH (09:04)
[2021-03-26] MEDS: BUDESONIDE EC 3 MG CAP PO SCH (09:04)
[2021-03-26] MEDS: DIPHENOXYLATE/ATROPINE 2.5/0.025MG TAB PO SCH (09:04)
[2021-03-26] MEDS: FAMOTIDINE 20 MG TAB PO SCH ×2 (09:05→20:50)
[2021-03-26] MEDS: HYDROCORTISONE 10 MG TAB PO SCH ×2 (09:05→16:08)
[2021-03-26] MEDS: SERTRALINE HCL 100 MG TABLET PO SCH (09:05)
[2021-03-26 09:11] LABS: Folate (Folic Acid) > 20.00 ng/ml (>5.38); Vitamin B12 363 pg/ml (193-986)
--- NOTE | 2021-03-26 11:33 | Hospitalist Progress Note ---
Date of Service March 26, 2021 Assessment & Plan (1) Diarrhea: Plan: Chronic- watery with mucous, no blood -Secondary to microscopic colitis vs. adrenal insufficiency vs. medication (theophylline or other), - GI consult appreciated-recommends lactose free diet which patient had not been following, starting Entocort which was just started this admission and is to continue for 9 weeks, checking a celiac panel which is negative, and encouraging increased use of Lomotil -It is possible the diarrhea is in relation to theophylline dosing- her last 2 theophylline levels were >20-continue to hold theophylline now This could also be related to adrenal insufficiency as she does always seem to temporarily improve in the hospital when given stress dose steroids-have since discontinued the IV hydrocortisone and reverted back to home hydrocortisone dosing 20 mg in the morning and 10 mg in the afternoon-some increase in diarrhea on 03/26, but continue without stress dose steroids for now -Continue lactose-free diet -Continue Entocort 9 mg daily p.o. x9 weeks and follow-up with GI as an outpatient -Continue Lomotil and encouraged to increase use up to 2 tablets 4 times a day as needed -Replace electrolytes-give potassium and magnesium again today -Holding theophylline and will restart at lower dose (2) Microscopic colitis: Plan: As above (3) Hypokalemia: Plan: Multiple etiologies - diarrhea +/- theophylline toxicity - theophylline level elevated as above-theophylline has been held Potassium was very low and is now mildly low but improved with replacement Replace again today with potassium chloride 40 mEq p.o. twice daily Follow BMP and magnesium levels in the morning -Maintain monitoring on telemetry (4) Hypomagnesemia: Plan: stool losses primarily as well as decrease PO intake-now improved after replacement but at 1.9 today Give 1 g IV magnesium sulfate Follow level in the morning (5) CHRISTIAN (acute kidney injury): Plan: Likely related to water loss in stool- acute on chronic Acute kidney injury now resolved baseline is 1.7-1.8 Creatinine now below baseline at 1.38 Follow BMP Have since discontinued IV fluids (6) Adrenal adenoma: Plan: Noted to be stable in size on left adrenal gland from CT abdomen/pelvis on 03/18 Follow-up with endocrinology as an outpatient (7) ACTH deficiency: Plan: Follows with Dr. Kingston endocrinology- likely related to her Keytruda for her NSCLC Was given IV stress dose steroids upon admission Continue home p.o. dosing of hydrocortisone as above Blood pressures are stable Suggest follow-up with endocrinology after discharge (8) Depression: Plan: Continue sertraline (9) Gastritis: Plan: Discontinued esomeprazole at this time as could be causing diarrhea She has no signs or symptoms of gastritis - continue Famotidine (10) DM2 (diabetes mellitus, type 2): Plan: With some intermittent hyperglycemia which is now improved with tighten down NovoLog - Last A1c 7.7% Continue NovoLog sliding scale Not on medication at home (11) COPD (chronic obstructive pulmonary disease): Plan: No acute issues, some occasional wheezing Continue albuterol, budesonide, and Combivent. - consider need for theophylline- nausea, vomiting, hypokalemia, and hypomag are also worsened with storm - GI symptoms may vary with Storm levels- her HR and rhythm are stable at this time except for some brief PAT- but previous admissions was noted with PAT/SVT - This dose was decreased in February down to 300 mg once daily Theophylline level still elevated at 22 this admission -holding theophylline and consider decreasing dose down to 200 mg once daily upon discharge with close monitoring of levels - follow clinically - Has not followed with pulmonary- has no recent PFTs (12) Anemia: Plan: Normocytic anemia iron studies, B12, folate as well as thyroid function are all normal Likely anemia of chronic kidney disease (13) Chronic renal failure, stage 3 (moderate): Plan: as above (14) Hypothyroidism: Plan: With baseline autoimmune thyroid disease Free T4 level was normal in 01/2021 but TSH elevated at 9 Continue home dose of levothyroxine 112 mcg daily TSH and free T4, free T3 here are all normal Follow-up with endocrinology Plan: DVT prophylaxis-SQ heparin Disposition-continued stay on medical floor with telemetry, but possible discharge home tomorrow if potassium and diarrhea improved and less fatigued Admission and Anticipated Discharge Date Admission Date: March 23, 2021 Subjective Patient reports having 3 episodes of diarrhea so far since 1 in the morning and she has not yet eaten lunch. She is feeling very tired today. No abdominal pains. No nausea or vomiting. She is eating. She does not feel ready to go home. Telemetry with normal sinus rhythm and sinus tachycardia with PVCs and a 10 beat run of paroxysmal atrial tachycardia Denies shortness of breath or chest pain. Review of Systems Review of Systems: All systems reviewed & are unremarkable except as noted in HPI & below Physical Exam Constitutional: WD/WN, vitals as above Eyes: + anicteric sclerae Neck: trachea midline, no thyromegaly Respiratory: normal respiratory effort Auscultation: + wheezes (A few bilateral expiratory wheezes); no crackles and no rhonchi Cardiovascular: RRR, no murmur, no edema Chest (Breasts): Chest: normal inspection of chest Gastrointestinal (Abdomen): normal bowel sounds, soft, nontender, no hepatosplenomegaly Musculoskeletal: Extremities: extremities normal to inspection; no cyanosis and no clubbing Skin: no rashes, warm and dry Neurologic: moves all extremities and awake; no focal motor deficits Psychiatric: A+Ox3, euthymic affect Lymphatic: no lymphedema Results & Data Results & Data ([facility]) Vital Signs (Past 12 Hours) Vital Signs Temp Pulse Pulse Resp BP Pulse Ox 03/26/21 11:00 36.6 C 71 18 108/64 98 03/26/21 09:43 91 H 151/79 H 03/26/21 07:42 36.8 C 82 18 187/109 H 92 03/26/21 07:00 92 H 03/26/21 02:55 36.7 C 69 20 167/92 H 98 03/26/21 01:09 82 Laboratory Results 03/26/21 03/26/21 03/26/21 Range/Units 16:38 11:31 07:32 WBC (4.8-10.8) K/uL RBC (4.2-5.4) M/uL Hgb (12.0-16.0) g/dL Hct (37-47) % MCV (80-100) fL MCH (25-34) pg MCHC (32-36) g/dL RDW Std Deviation (36.4-46.3) fL RDW Coeff of Maye (11.5-14.5) % Plt Count (130-400) K/uL MPV (7.4-10.4) fL Immature Gran % (Auto) % Neut % (Auto) % Lymph % (Auto) % Ada % (Auto) % Eos % (Auto) % Baso % (Auto) % Neut # (Auto) (1.4-6.5) K/uL Lymph # (Auto) (1.2-3.4) K/uL Ada # (Auto) (0.11-0.59) K/uL Eos # (Auto) (0-0.5) K/uL Baso # (Auto) (0-0.2) K/uL Immature Gran # (Auto) (0.00-0.02) K/uL Sodium (136-145) mmol/L Potassium (3.5-5.1) mmol/L Chloride (98-107) mmol/L Carbon Dioxide (21-32) mmol/L Anion Gap (3-11) BUN (7-18) mg/dl Creatinine (0.6-1.2) mg/dl Est Cr Clr Drug Dosing ml/min Est GFR ( Amer) ml/min Est GFR (Non-Af Amer) ml/min BUN/Creatinine Ratio (10-20) Glucose (70-99) mg/dl POC Glucose 157 H 179 H 95 (70-99) mg/dl Calcium (8.5-10.1) mg/dl Magnesium (1.8-2.4) mg/dl Iron (35-150) mcg/dl TIBC (250-450) mcg/dl Transferrin (200-360) mg/dl Transferrin % Sat (15-50) % Ferritin (8-388) ng/ml Vitamin B12 (193-986) pg/ml Folate (>5.38) ng/ml TSH (0.300-4.500) uIu/ml Free T4 (0.8-1.6) ng/dl Free T3 (2.3-4.2) pg/ml IgA (70-320) mg/dL Tiss Transglutamin IgA U/mL Celiac Disease Interp 03/26/21 03/26/21 03/26/21 Range/Units 07:17 07:17 07:17 WBC (4.8-10.8) K/uL RBC (4.2-5.4) M/uL Hgb (12.0-16.0) g/dL Hct (37-47) % MCV (80-100) fL MCH (25-34) pg MCHC (32-36) g/dL RDW Std Deviation (36.4-46.3) fL RDW Coeff of Maye (11.5-14.5) % Plt Count (130-400) K/uL MPV (7.4-10.4) fL Immature Gran % (Auto) % Neut % (Auto) % Lymph % (Auto) % Ada % (Auto) % Eos % (Auto) % Baso % (Auto) % Neut # (Auto) (1.4-6.5) K/uL Lymph # (Auto) (1.2-3.4) K/uL Ada # (Auto) (0.11-0.59) K/uL Eos # (Auto) (0-0.5) K/uL Baso # (Auto) (0-0.2) K/uL Immature Gran # (Auto) (0.00-0.02) K/uL Sodium 146 H (136-145) mmol/L Potassium 3.4 L D (3.5-5.1) mmol/L Chloride 115 H (98-107) mmol/L Carbon Dioxide 24 (21-32) mmol/L Anion Gap 6.0 (3-11) BUN 14 (7-18) mg/dl Creatinine 1.38 H D (0.6-1.2) mg/dl Est Cr Clr Drug Dosing 39.0 ml/min Est GFR ( Amer) 42.9 ml/min Est GFR (Non-Af Amer) 37.0 ml/min BUN/Creatinine Ratio 9.8 L (10-20) Glucose 94 (70-99) mg/dl POC Glucose (70-99) mg/dl Calcium 8.4 L (8.5-10.1) mg/dl Magnesium 1.9 (1.8-2.4) mg/dl Iron 54 (35-150) mcg/dl TIBC 117 L (250-450) mcg/dl Transferrin 113 L (200-360) mg/dl Transferrin % Sat 34 (15-50) % Ferritin 976.3 H (8-388) ng/ml Vitamin B12 363 (193-986) pg/ml Folate > 20.00 (>5.38) ng/ml TSH 0.667 (0.300-4.500) uIu/ml Free T4 1.11 (0.8-1.6) ng/dl Free T3 2.26 L (2.3-4.2) pg/ml IgA (70-320) mg/dL Tiss Transglutamin IgA U/mL Celiac Disease Interp 09/09/21 09/08/21 09/07/21 Range/Units 07:17 19:56 10:31 WBC 4.01 L (4.8-10.8) K/uL RBC 3.34 L (4.2-5.4) M/uL Hgb 9.3 L (12.0-16.0) g/dL Hct 28.9 L (37-47) % MCV 86.5 (80-100) fL MCH 27.8 (25-34) pg MCHC 32.2 (32-36) g/dL RDW Std Deviation 54.8 H (36.4-46.3) fL RDW Coeff of Maye 17.3 H (11.5-14.5) % Plt Count 153 (130-400) K/uL MPV 10.3 (7.4-10.4) fL Immature Gran % (Auto) 0.7 % Neut % (Auto) 38.5 % Lymph % (Auto) 42.1 % Ada % (Auto) 9.5 % Eos % (Auto) 9.0 % Baso % (Auto) 0.2 % Neut # (Auto) 1.54 (1.4-6.5) K/uL Lymph # (Auto) 1.69 (1.2-3.4) K/uL Ada # (Auto) 0.38 (0.11-0.59) K/uL Eos # (Auto) 0.36 (0-0.5) K/uL Baso # (Auto) 0.01 (0-0.2) K/uL Immature Gran # (Auto) 0.03 H (0.00-0.02) K/uL Sodium (136-145) mmol/L Potassium (3.5-5.1) mmol/L Chloride (98-107) mmol/L Carbon Dioxide (21-32) mmol/L Anion Gap (3-11) BUN (7-18) mg/dl Creatinine (0.6-1.2) mg/dl Est Cr Clr Drug Dosing ml/min Est GFR ( Amer) ml/min Est GFR (Non-Af Amer) ml/min BUN/Creatinine Ratio (10-20) Glucose (70-99) mg/dl POC Glucose 152 H (70-99) mg/dl Calcium (8.5-10.1) mg/dl Magnesium (1.8-2.4) mg/dl Iron (35-150) mcg/dl TIBC (250-450) mcg/dl Transferrin (200-360) mg/dl Transferrin % Sat (15-50) % Ferritin (8-388) ng/ml Vitamin B12 (193-986) pg/ml Folate (>5.38) ng/ml TSH (0.300-4.500) uIu/ml Free T4 (0.8-1.6) ng/dl Free T3 (2.3-4.2) pg/ml IgA 389 H (70-320) mg/dL Tiss Transglutamin IgA 1 U/mL Celiac Disease Interp SEE NOTE PG Care Time/CCT Total # of Minutes Spent Total Time Spent with Patient: Total time spent is greater than 50% in coordination of care (as documented) at patient's floor/unit and/or counseling patient: Coding Level of Care Code 84725 Subseq Hosp Care Lvl 3 Diagnoses Diarrhea R19.7 Diarrhea type: unspecified type Microscopic colitis K52.839 Hypokalemia E87.6 Hypomagnesemia E83.42 CHRISTIAN (acute kidney injury) N17.9 Adrenal adenoma D35.00 ACTH deficiency E23.6 Depression F32.9 Gastritis K29.70 DM2 (diabetes mellitus, type 2) E11.9 COPD (chronic obstructive pulmonary disease) J44.9 Anemia D64.9 Chronic renal failure, stage 3 (moderate) N18.30 Chronic kidney disease stage 3 subtype: unspecified whether 3a or 3b Hypothyroidism E03.9 (1) Chronic renal failure, stage 3 (moderate) Chronic kidney disease stage 3 subtype: unspecified whether 3a or 3b Qualified Code(s): N18.30 - Chronic kidney disease, stage 3 unspecified (2) Diarrhea Diarrhea type: unspecified type Qualified Code(s): R19.7 - Diarrhea, unspecified
[2021-03-27] MEDS: HEPARIN SOD 5,000 UNIT/0.5 ML VIAL SQ SCH ×2 (05:55→13:06)
[2021-03-27] MEDS: LEVOTHYROXINE SODIUM 112 MCG TABLET PO SCH (05:55)
[2021-03-27] MEDS: DIPHENOXYLATE/ATROPINE 2.5/0.025MG TAB PO SCH (08:38)
[2021-03-27] MEDS: HYDROCORTISONE 10 MG TAB PO SCH ×2 (08:39→15:23)
[2021-03-27] MEDS: SERTRALINE HCL 100 MG TABLET PO SCH (08:39)
[2021-03-27] MEDS: BUDESONIDE EC 3 MG CAP PO SCH (08:39)
[2021-03-27] MEDS: FOLIC ACID 1 MG TAB PO SCH (08:39)
[2021-03-27] MEDS: FAMOTIDINE 20 MG TAB PO SCH (08:40)
[2021-03-27] MEDS: INSULIN ASPART 100 UNITS/ML 3 ML PEN SC SCH ×3 (08:41→17:20)
[2021-03-27 08:57] LABS: Calcium 8.9 mg/dl (8.5-10.1); Est GFR (African American) 42.2 ml/min; Est GFR (Non-African American) 36.4 ml/min; Magnesium 1.8 mg/dl (1.8-2.4); Potassium 3.8 mmol/L (3.5-5.1)
[2021-03-27] MEDS ORDERED: POTASSIUM CHLORIDE CRTAB 20 MEQ TABCR PO STA (11:57)
[2021-03-27] MEDS ORDERED: MAGNESIUM SULFATE / D5W 1 GM/100 ML BAG IV ONE (12:15)
[2021-03-27] MEDS ORDERED: DIPHENOXYLATE/ATROPINE 2.5/0.025MG TAB PO SCH (14:00)
--- NOTE | 2021-03-27 15:29 | Discharge Summary ---
Date of Service March 27, 2021 Admission HPI Per Admitting Provider 75 YOF with past medical history of: microscopic colitis, gout, persistent chronic diarrhea, adrenal insufficiency, adrenal adenoma, hypothyroidism, CKD IIIa, HTN, Depression, COPD, DM, NSCLC (2017) . Patient has been admitted to the hospital multiple times since January for continued nausea, vomiting and diarrhea. She has an appointment with GI on the 25 of March. Her most recent admissions are January 16, February 09-February 17, February 21, February 27, March 09, and March 18. She has had multiple CT scans and imaging consistent with pancolitis, started on Entocort and she has been on and off stress dose steroids each admission, and she also was recently treated last month for UTI with E. coli. She comes to the [facility] for complaints of 3 days of unable to keep food down secondary to increase in diarrhea and nausea and vomiting. She states that when she does eat something within 5-10 minutes she is in the bathroom with diarrhea. The stools are mostly liquid without formation of particles per the patient. She also notes allot of mucous with her stools but no blood noted. There is no pain with these bowel movements or with eating. She feels some abdominal pressure at current. She feels these symptoms started in December 2020 and were associated with diaphoresis and abdominal cramping. She was a previous smoker and has since reported quitting in February. Patient will be admitted to continue with IV hydration, symptom control and continued replacing of electrolytes. Patient had a recent Colonoscopy on 02/12/21 with biopsies. She had small and large mouth diverticula in the entire colon: Biopsies from those sites were one fragment of tubular adenoma, microscopic colitis, sigmoid-tubular adenoma. Patient has received her COVID vaccines and her COVID test on admission is NEGATIVE. Principal Diagnosis Intractable nausea/vomiting/diarrhea, Hypokalemia, hypomagnesemia, microscopic colitis Discharge Exam Constitutional WD/WN, vitals as above Eyes + anicteric sclerae ENMT external ear and nose normal, oropharynx normal Neck trachea midline, no thyromegaly Respiratory normal respiratory effort, lungs clear to auscultation Cardiovascular RRR, no murmur, no edema Chest (Breasts) Chest: normal inspection of chest Gastrointestinal (Abdomen) normal bowel sounds, soft, nontender, no hepatosplenomegaly Musculoskeletal Extremities: extremities normal to inspection; no cyanosis and no clubbing Skin no rashes, warm and dry Neurologic moves all extremities and awake; no focal motor deficits Psychiatric A+Ox3, euthymic affect Lymphatic no lymphedema Discharge Data Allergies Allergy/AdvReac Type Severity Reaction Status Date / Time adhesive Allergy Unknown PULLS SKIN Verified 03/23/21 17:08 OFF Penicillins Allergy Unknown TONGUE Verified 03/23/21 17:08 SWELLING azithromycin AdvReac Unknown Nausea Verified 03/23/21 17:08 Consultations 03/23/21 16:14 ED Decision to Admit Stat 03/23/21 18:34 Consult Gastroenterology Routine Hospital Course (1) Diarrhea: Chronic- watery with mucous, no blood -Secondary to microscopic colitis vs. adrenal insufficiency vs. medication (theophylline or other), - GI consult appreciated-recommends lactose free diet which patient had not been following, starting Entocort which was just started this admission and is to continue for 9 weeks, checking a celiac panel which is negative, and encouraging increased use of Lomotil -It is possible the diarrhea is in relation to theophylline dosing- her last 2 theophylline levels were >20-held theophylline x 3 days, restart lower dose This could also be related to adrenal insufficiency as she does always seem to temporarily improve in the hospital when given stress dose steroids-have since discontinued the IV hydrocortisone and reverted back to home hydrocortisone dosing 20 mg in the morning and 10 mg in the afternoon-some increase in diarrhea on 03/26, but continue without stress dose steroids for now -Continue lactose-free diet -Continue Entocort 9 mg daily p.o. x9 weeks and follow-up with GI as an outpatient -Continue Lomotil and encouraged to increase use up to 2 tablets 3 times a day scheduled -Replaced electrolytes- gave copious potassium and magnesium-dc to home on KCl 20meq po daily -Held theophylline and will restart at lower dose of 100mg po bid -check BMP, Mag, and theophylline levels on Friday 03/30 (2) Microscopic colitis: As above (3) Hypokalemia: Multiple etiologies - diarrhea +/- theophylline toxicity - theophylline level elevated as above-theophylline has been held Potassium was very low and is now improved with replacement continue KCl 20meq po once daily Follow BMP and magnesium levels in 3 days as outpt (4) Hypomagnesemia: stool losses primarily as well as decrease PO intake-now improved after replacement but at 1.9 today Give 1 g IV magnesium sulfate on day of dc Follow level in 3 days as outpt (5) CHRISTIAN (acute kidney injury): Likely related to water loss in stool- acute on chronic Acute kidney injury now resolved baseline is 1.7-1.8 Creatinine now below baseline at 1.38 Follow BMP as outpt Have since discontinued IV fluids (6) Adrenal adenoma: Noted to be stable in size on left adrenal gland from CT abdomen/pelvis on 03/18 Follow-up with endocrinology as an outpatient (7) ACTH deficiency: Follows with Dr. Kingston endocrinology- likely related to her Keytruda for her NSCLC Was given IV stress dose steroids upon admission Continue home p.o. dosing of hydrocortisone as above Blood pressures are stable Suggest follow-up with endocrinology after discharge (8) Depression: Continue sertraline (9) Gastritis: Discontinued esomeprazole at this time as could be causing diarrhea She has no signs or symptoms of gastritis - continue Famotidine (10) DM2 (diabetes mellitus, type 2): With some intermittent hyperglycemia which is now improved with tighten down NovoLog - Last A1c 7.7% Continue NovoLog sliding scale Not on medication at home (11) COPD (chronic obstructive pulmonary disease): No acute issues, some occasional wheezing Continue albuterol, budesonide, and Combivent. - consider need for theophylline- nausea, vomiting, hypokalemia, and hypomag are also worsened with ho - GI symptoms may vary with Ho levels- her HR and rhythm are stable at this time except for some brief PAT- but previous admissions was noted with PAT/SVT - This dose was decreased in February down to 300 mg once daily Theophylline level still elevated at 22 this admission -holding theophylline and consider decreasing dose down to 100 mg po bid upon discharge with close monitoring of levels - follow clinically - Has not followed with pulmonary- has no recent PFTs (12) Anemia: Normocytic anemia iron studies, B12, folate as well as thyroid function are all normal Likely anemia of chronic kidney disease (13) Chronic renal failure, stage 3 (moderate): as above (14) Hypothyroidism: With baseline autoimmune thyroid disease Free T4 level was normal in 01/2021 but TSH elevated at 9 Continue home dose of levothyroxine 112 mcg daily TSH and free T4, free T3 here are all normal Follow-up with endocrinology DVT prophylaxis-SQ heparin Disposition-dc to home, doing well Total Time Total Time Spent Total Time Spent (In Minutes): 40 min Discharge Plan Discharge Items Patient Disposition: Home - Home Health Services Reason For Visit: ELECTROLYTE ABNORMALITIES, DIARRHEA Discharge Diagnosis: Nausea/vomiting, diarrhea, hypokalemia, hypomagnesemia Microscopic colitis Condition on Discharge: Good Activity: Resume your previous activity Non-emergency contact: Primary Care Provider and Employment Programs Analyst Call non-emergency contact if: you have any medication questions and your symptoms worsen Follow-up/Referrals: William Kay DO [Physician] - (Please follow up within 2 weeks.) Arthur Cruz [Primary Care Provider] - (Keep your current scheduled appointment for next week.) Diet: Carb Consistent or DM2 and Lactose Intolerant Ambulatory Orders: Basic Metabolic Panel (Routine) Timeframe: 3 Days Location: Determined by Patient Ordered By: Natasha Manriquez Magnesium (Routine) Timeframe: 3 Days Location: Determined by Patient Ordered By: Natasha Manriquez Theophylline (Routine) Timeframe: 3 Days Location: Determined by Patient Ordered By: Natasha Manriquez Addtl Attending Provider Instructions: You were admitted with a recurrence of your nausea and diarrhea causing severe dehydration and low electrolytes. You had improvement with following a lactose- free diet, taking Lomotil three times a day, and replacement of your electrolytes. Your theophylline was also held for 3 days due to a high theophylline level in the blood. You will be restarted at a lower dose of 100mg twice a day and will need to have blood work drawn on Tuesday of next week. Please continue the Entocort (budesonide) 9mg daily for treatment of your c olitis. Continue the Lomotil three times a day until your diarrhea improves, and then take it as needed. Continue taking a potassium pill once daily for now and have your blood work checked on Tuesday to see what your potassium levels are. Follow up with your PCP and with GI after discharge within 1-2 weeks. Pending Studies at Discharge: No Stand-Alone Forms: My [facility] [place], Smoking Cessation Medications and DC Order Prescriptions: New theophylline 100 mg capsule,extended release 24hr 100 mg PO Q12H Qty: 60 RF: 0 potassium chloride 20 mEq tablet extended release 20 meq PO DAILY Qty: 30 RF: 0 Continued sertraline [Zoloft] 100 mg tablet 100 mg PO QAM RF: 0 folic acid 1 mg tablet 1 mg PO QAM RF: 0 Combivent Respimat 20-100 mcg/actuation Mist 1 puff INHALATION Q4H PRN (Reason: Shortness Of Breath Or Wheezing) RF: 0 levothyroxine [Synthroid] 112 mcg tablet 112 mcg PO DAILYBB RF: 0 albuterol sulfate 2.5 mg /3 mL (0.083 %) solution for nebulization 2.5 mg continuous nebulization Q4 PRN (Reason: cough,sob) RF: 0 tramadol 50 mg Tablet 50 mg PO Q4H PRN (Reason: pain) 30 Days Qty: 30 RF: 0 famotidine 20 mg Tablet 20 mg PO BID 30 Days Qty: 60 RF: 0 hydrocortisone [Cortef] 10 mg Tablet 10 mg PO PM 30 Days Qty: 30 RF: 3 hydrocortisone [Cortef] 10 mg Tablet 20 mg PO QAM 30 Days Qty: 60 RF: 3 budesonide [Entocort EC] 3 mg capsule,delayed,extend.release 9 mg PO QAM 30 Days Qty: 90 RF: 0 acetaminophen [Tylenol] 325 mg Tablet 650 mg PO QID PRN (Reason: Pain) RF: 0 Changed diphenoxylate-atropine 2.5-0.025 mg tablet 2 tab PO TID Qty: 180 RF: 0 Discontinued furosemide [Lasix] 20 mg tablet 20 mg PO DAILY PRN (Reason: Swelling) RF: 0 theophylline 300 mg tablet extended release 12 hr 300 mg PO DAILY Qty: 0 RF: 0 esomeprazole magnesium 20 mg capsule,delayed release(DR/EC) 20 mg PO Q48H 7 Days Qty: 0 RF: 0 Discharge Orders: Discharge Order (Routine); Ordered 03/27/21 Ordered By: Natasha Manriquez Admission Data Admit Date/Time: 03/23/21 17:29 Attending Provider: Natasha Manriquez Admit Provider: Sung Fenton Primary Care Provider: Arthur Cruz Other Providers: Sin Rodriguez ; William Kay ; Darline Nickerson ; Harini Waters ; Jimmie Lombardo Coding Level of Care Code D/C DAY MANAGEMENT >30 MINS Diagnoses Diarrhea R19.7 Diarrhea type: unspecified type Microscopic colitis K52.839 Hypokalemia E87.6 Hypomagnesemia E83.42 CHRISTIAN (acute kidney injury) N17.9 Adrenal adenoma D35.00 ACTH deficiency E23.6 Depression F32.9 Gastritis K29.70 DM2 (diabetes mellitus, type 2) E11.9 COPD (chronic obstructive pulmonary disease) J44.9 Anemia D64.9 Chronic renal failure, stage 3 (moderate) N18.30 Chronic kidney disease stage 3 subtype: unspecified whether 3a or 3b Hypothyroidism E03.9
== END 2021-03-27 17:27 | disposition home health service (06) ==
LOC: ED 14:14 → SUATTDRO 17:29 → INTOOBSV 17:29 → 2W 17:29

== ENCOUNTER 2021-09-28 12:03 | Observation (INO) ==
[2021-09-28] MEDS ORDERED: SODIUM CHLORIDE 0.9% 1000ML 1,000 ML IV SCH (12:30)
[2021-09-28] MEDS ORDERED: levoFLOXacin/D5W 750 MG/150 ML BAG IV STA (12:31)
[2021-09-28] MEDS ORDERED: ACETAMINOPHEN 500 MG TAB PO STA (12:31)
[2021-09-28] MEDS ORDERED: ONDANSETRON INJ 2 MG/ML 2 ML VIAL IV STA (12:32)
[2021-09-28] MEDS ORDERED: MoRPHine SULFATE 4 MG/ML 1 ML CARP\\VIAL IV STA (12:32)
--- NOTE | 2021-09-28 12:38 | Emergency Department Note ---
Impression & Plan SOB (shortness of breath), Pneumonia, COPD exacerbation, Cellulitis, Left leg pain ED Provider Note NAME: FELISA SCHWAB AGE: 76 SEX: F : 1945 ARRIVES VIA: Ambulance INFORMANT: [Patient][nursing] ED PROVIDER(S): [Jaxon Evans MD] CHIEF COMPLAINT: Shortness of breath HISTORY OF PRESENT ILLNESS: The patient is a 76-year-old female presents to the ER with complaints of dyspnea. The patient has had 3 days of some moderate left lower leg/foot pain. The pain has been getting worse. Today, she was short of breath and all her symptoms were worse with exertion. She has been nauseated. No chest pain. No fever or chills. On the way to our ER, EMS administered IV Zofran for nausea. The patient does have COPD. She has lung cancer. She is on 2 L of oxygen at nighttime. There has been a slight increase in her cough, no nasal congestion. No recent sick contacts. She did not injure or suffer any trauma to the left lower leg. She was told that her leg pain may be from arthritis. REVIEW OF SYSTEMS: See HPI for pertinent positives and negatives. A total of ten systems were reviewed and were otherwise negative. PMHx/PSHx: See Below SOCIAL HISTORY: See Below. PHYSICAL EXAM: GENERAL: Patient is in no acute distress. HEENT: No acute trauma, normocephalic atraumatic, mucous membranes moist, no nasal congestion, no scleral icterus. NECK: No stridor, no adenopathy, no meningismus, trachea is midline. LUNGS: A few scattered wheezes heard, no rhonchi, breath sounds equal. She does appear a bit short of breath with speaking. HEART: Without murmurs gallops or rubs, regular rate and rhythm. ABDOMEN: Soft, nontender, bowel sounds positive, no hernias, no peritonitis. EXTREMITIES: No cyanosis or edema. The patient does have some erythema and warmth to the dorsum of the left foot. She is tender in this area. NEUROLOGIC: Oriented x 3, no acute motor or sensory deficits, no focal weakness. SKIN: No rash, no jaundice, no diaphoresis. DIFFERENTIAL DIAGNOSIS: Infection, cellulitis, abscess, osteomyelitis, pneumonia or bronchitis, PE or DVT, dehydration, metabolic abnormality, hypo/hyperglycemia, electrolyte disturbance, anemia, hypoxia, cardiac sources, as well as other pathologies. EMERGENCY DEPARTMENT COURSE/PROCEDURES: ECG: Indication was shortness of breath. The ECG shows what appears to be a normal sinus rhythm with a rate of 88. There is no ST elevation, no PVCs. There is diffuse T wave flattening. The QTC is 445 Continuous Cardiac Monitoring: An order was placed for continuous cardiac monitoring. The monitor shows a rate of 86 with normal sinus rhythm. Critical Care Note: I have personally spent 41 minutes of critical care time in the direct management of this patient. This includes bedside care, interpretation of diagnostic studies, and testing, discussion with consultants, patient, and family members, and other required patient management activities. This 41 minutes is in excess of all separately billable procedures. MEDICAL DECISION MAKING: There is no leukocytosis or concerning anemia. There is a normal platelet count. No coagulopathy. Creatinine is a bit high at 1.69 but this appears baseline when looking back at previous testing. Lactic acid level was not elevated making sepsis less likely. Magnesium was a bit low at 1.5. No concerning liver enzyme elevation. Procalcitonin level was not elevated. ECG shows a normal sinus rhythm, no obvious ischemia. Cardiac enzyme testing x1 is not consistent with acute cardiac injury. Influenza and Covid testing returned negative. Chest film shows what appears to be a patchy bilateral pneumonia. No pneumothorax. Left foot CT does not show any abscess or osteomyelitis. On exam, the patient did have left foot redness and warmth consistent with cellulitis. She appeared somewhat short of breath with speaking. Patient was given IV Levaquin as empiric antibiotic coverage. She was given oral Tylenol, a DuoNeb, IV Solu-Medrol, IV magnesium. She was given IV morphine and IV Zofran. She received 1 L of IV saline. The patient presents short of breath with left foot pain. She appears to have a left lower extremity cellulitis as well as a pneumonia with a flare of her COPD. Given her findings, given her history, I do think a hospital stay is warranted. I spoke with case management, I talked to the patient about her findings. The on-call hospitalist was consulted. Past Med/Surg History Medical History Abdominal pain ACTH deficiency Acute electrocardiogram changes Adrenal adenoma Arthritis Chest pain Chronic renal failure, stage 3 (moderate) COPD (chronic obstructive pulmonary disease) COVID-19 05/2020 Depression Diabetes Diffuse abdominal pain Fall Fever Hypoxia Injury of foot Lung cancer 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 Nausea, vomiting, and diarrhea Neutropenic fever Orthostatic hypotension Pancytopenia Right knee DJD Secondary adrenal insufficiency Syncope Tachycardia Vomiting Surgical History Hx of right knee surgery Family History Mother Heart disease Father , in his 90s - old age COPD (chronic obstructive pulmonary disease) Other Diabetes Hypertension Lung disease Social History Smoking Status: Former smoker Tobacco Type: Cigarettes Age Started Using Tobacco: 19; Age Quit Using Tobacco: 75; packs per day: 0.5; Second Hand Exposure: No; Hx Alcohol Use: No Hx Substance Use: No Preferred Language: Czech Communication Ability: Effective Due Diligence Coordinator Required: No Beliefs That Will Affect Care: None marital status: / Current Living Situation: Family Current Living Situation Comment: Grandaghter lives with patient current occupational status: retired How many Children do You have: 4 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 Feels Safe at Home: Yes Assistive Devices: Glasses and Oxygen - Continuous Allergies Allergies Allergy/AdvReac Type Severity Reaction Status Date / Time Penicillins Allergy Severe TONGUE Verified 09/28/21 17:09 SWELLING adhesive Allergy Intermediate PULLS SKIN Verified 09/28/21 17:09 OFF azithromycin AdvReac Intermediate Nausea Verified 09/28/21 17:09 Home Meds Home Medications Medication Instructions Recorded Confirmed ipratropium 20 mcg-albuterol 100 1 puff INHALATION Q4H PRN 07/17/18 09/28/21 mcg/actuation mist for inhalation (Combivent Respimat) sertraline 100 mg tablet (Zoloft) 100 mg PO QAM 07/17/18 09/28/21 albuterol sulfate 2.5 mg CONTINUOUS NEBULIZATION Q4 01/15/21 09/28/21 PRN furosemide 20 mg tablet 20 mg PO DAILY PRN 07/22/21 09/28/21 levothyroxine 112 mcg tablet 112 mcg PO DAILYBB 07/22/21 09/28/21 theophylline 100 mg 100 mg PO BID 09/28/21 09/28/21 tablet,extended release,12 hr Previous Rx's Medication Instructions Recorded potassium chloride 20 mEq 20 meq PO DAILY #30 tab 03/27/21 tablet,extended release Results & Data (ED) Vital Signs Vital Signs - 24 hr 09/28/21 12:16 09/28/21 12:28 09/28/21 13:00 Temperature 37.9 C H Temperature Source Oral Pulse Rate 88 92 H Pulse Rate from SpO2 Sensor 92 H Pulse Rhythm Regular Pulse Strength Normal Respiratory Rate 20 20 19 Respiratory Effort / Characteristics Non-Labored Non-Labored Respiratory Depth Normal Respiratory Pattern Regular Blood Pressure 113/69 115/56 L Blood Pressure Mean 83 75 Blood Pressure Position Sitting Pulse Oximetry 92 95 90 Oxygen Delivery Method Room Air Room Air Oxygen Flow Rate Sepsis Recent Fever Within 48 Hours No Sepsis New/Unexplained Change in Mental Status No Sepsis Action Taken by Nursing No Action Required Oxygen Flow Rate - Titration Pulse Oximetry Post Tiitration 09/28/21 13:21 09/28/21 13:30 09/28/21 14:01 Temperature Temperature Source Pulse Rate 87 90 Pulse Rate from SpO2 Sensor 86 91 H Pulse Rhythm Pulse Strength Respiratory Rate 17 27 H Respiratory Effort / Characteristics Respiratory Depth Respiratory Pattern Blood Pressure 107/71 102/55 L Blood Pressure Mean 83 70 Blood Pressure Position Pulse Oximetry 89 L 97 96 Oxygen Delivery Method Oxygen Flow Rate 0 Sepsis Recent Fever Within 48 Hours Sepsis New/Unexplained Change in Mental Status Sepsis Action Taken by Nursing Oxygen Flow Rate - Titration 2 Pulse Oximetry Post Tiitration 95 09/28/21 14:30 Temperature Temperature Source Pulse Rate 88 Pulse Rate from SpO2 Sensor 88 Pulse Rhythm Pulse Strength Respiratory Rate 17 Respiratory Effort / Characteristics Respiratory Depth Respiratory Pattern Blood Pressure 106/54 L Blood Pressure Mean 71 Blood Pressure Position Pulse Oximetry 96 Oxygen Delivery Method Oxygen Flow Rate Sepsis Recent Fever Within 48 Hours Sepsis New/Unexplained Change in Mental Status Sepsis Action Taken by Nursing Oxygen Flow Rate - Titration Pulse Oximetry Post Tiitration Home Medications Current Medication List: was personally reviewed by me Laboratory Data Result diagrams: 09/28/21 12:10 09/28/21 12:10 Lab Results 09/28/21 09/28/21 09/28/21 Range/Units 12:10 12:10 12:10 WBC 8.37 (4.8-10.8) K/uL RBC 4.40 (4.2-5.4) M/uL Hgb 12.2 (12.0-16.0) g/dL Hct 37.7 (37-47) % MCV 85.7 (80-100) fL MCH 27.7 (25-34) pg MCHC 32.4 (32-36) g/dL RDW Std Deviation 50.1 H (36.4-46.3) fL RDW Coeff of Maye 15.8 H (11.5-14.5) % Plt Count 181 (130-400) K/uL MPV 11.3 H (7.4-10.4) fL Immature Gran % (Auto) 0.4 % Neut % (Auto) 52.9 % Lymph % (Auto) 24.6 % Pendleton % (Auto) 9.0 % Eos % (Auto) 12.7 % Baso % (Auto) 0.4 % Neut # (Auto) 4.44 (1.4-6.5) K/uL Lymph # (Auto) 2.06 (1.2-3.4) K/uL [place]end[place] # (Auto) 0.75 H (0.11-0.59) K/uL Eos # (Auto) 1.06 H (0-0.5) K/uL Baso # (Auto) 0.03 (0-0.2) K/uL Immature Gran # (Auto) 0.03 H (0.00-0.02) K/uL PT 11.0 (9.0-12.0) Seconds INR 1.0 (0.9-1.1) APTT 23.9 (21.0-31.0) Seconds PTT Ratio 0.9 Sodium 136 (136-145) mmol/L Potassium 3.8 (3.5-5.1) mmol/L Chloride 105 (98-107) mmol/L Carbon Dioxide 24 (21-32) mmol/L Anion Gap 7 (3-11) BUN 14 (6-23) mg/dl Creatinine 1.69 H (0.6-1.2) mg/dl Est Cr Clr Drug Dosing 31.1 ml/min Est GFR ( Amer) 33.4 ml/min Est GFR (Non-Af Amer) 28.8 ml/min BUN/Creatinine Ratio 8.3 L (10-20) Glucose 142 H (70-99(Fasting)) mg/dl Lactate (0.4-2.0) mmol/L Calcium 9.3 (8.5-10.1) mg/dl Magnesium 1.5 L (1.7-2.4) mg/dl Total Bilirubin 1.1 H (0.2-1.0) mg/dl AST 11 L (13-39) U/L ALT 5 L (7-52) U/L Alkaline Phosphatase 96 (34-104) U/L Troponin I < 0.03 (0-0.04) ng/ml Total Protein 6.1 (6.0-8.3) gm/dl Albumin 3.6 (3.4-5.0) gm/dl Globulin 2.5 (2.5-4.0) gm/dl Albumin/Globulin Ratio 1.4 (0.9-2) Procalcitonin (0-0.5) ng/ml Influ A Molecular Assay (Negative) Influ B Molecular Assay (Negative) SARS-CoV-2, RNA, NAAT (NEGATIVE) 09/28/21 09/28/21 09/28/21 Range/Units 12:10 12:47 12:52 WBC (4.8-10.8) K/uL RBC (4.2-5.4) M/uL Hgb (12.0-16.0) g/dL Hct (37-47) % MCV (80-100) fL MCH (25-34) pg MCHC (32-36) g/dL RDW Std Deviation (36.4-46.3) fL RDW Coeff of Maye (11.5-14.5) % Plt Count (130-400) K/uL MPV (7.4-10.4) fL Immature Gran % (Auto) % Neut % (Auto) % Lymph % (Auto) % [place]end[place] % (Auto) % Eos % (Auto) % Baso % (Auto) % Neut # (Auto) (1.4-6.5) K/uL Lymph # (Auto) (1.2-3.4) K/uL [place] # (Auto) (0.11-0.59) K/uL Eos # (Auto) (0-0.5) K/uL Baso # (Auto) (0-0.2) K/uL Immature Gran # (Auto) (0.00-0.02) K/uL PT (9.0-12.0) Seconds INR (0.9-1.1) APTT (21.0-31.0) Seconds PTT Ratio Sodium (136-145) mmol/L Potassium (3.5-5.1) mmol/L Chloride (98-107) mmol/L Carbon Dioxide (21-32) mmol/L Anion Gap (3-11) BUN (6-23) mg/dl Creatinine (0.6-1.2) mg/dl Est Cr Clr Drug Dosing ml/min Est GFR ( Amer) ml/min Est GFR (Non-Af Amer) ml/min BUN/Creatinine Ratio (10-20) Glucose (70-99(Fasting)) mg/dl Lactate 1.0 (0.4-2.0) mmol/L Calcium (8.5-10.1) mg/dl Magnesium (1.7-2.4) mg/dl Total Bilirubin (0.2-1.0) mg/dl AST (13-39) U/L ALT (7-52) U/L Alkaline Phosphatase (34-104) U/L Troponin I (0-0.04) ng/ml Total Protein (6.0-8.3) gm/dl Albumin (3.4-5.0) gm/dl Globulin (2.5-4.0) gm/dl Albumin/Globulin Ratio (0.9-2) Procalcitonin 0.06 (0-0.5) ng/ml Influ A Molecular Assay (Negative) Influ B Molecular Assay (Negative) SARS-CoV-2, RNA, NAAT NEGATIVE (NEGATIVE) 09/28/21 Range/Units 13:15 WBC (4.8-10.8) K/uL RBC (4.2-5.4) M/uL Hgb (12.0-16.0) g/dL Hct (37-47) % MCV (80-100) fL MCH (25-34) pg MCHC (32-36) g/dL RDW Std Deviation (36.4-46.3) fL RDW Coeff of Maye (11.5-14.5) % Plt Count (130-400) K/uL MPV (7.4-10.4) fL Immature Gran % (Auto) % Neut % (Auto) % Lymph % (Auto) % [place] % (Auto) % Eos % (Auto) % Baso % (Auto) % Neut # (Auto) (1.4-6.5) K/uL Lymph # (Auto) (1.2-3.4) K/uL [place] # (Auto) (0.11-0.59) K/uL Eos # (Auto) (0-0.5) K/uL Baso # (Auto) (0-0.2) K/uL Immature Gran # (Auto) (0.00-0.02) K/uL PT (9.0-12.0) Seconds INR (0.9-1.1) APTT (21.0-31.0) Seconds PTT Ratio Sodium (136-145) mmol/L Potassium (3.5-5.1) mmol/L Chloride (98-107) mmol/L Carbon Dioxide (21-32) mmol/L Anion Gap (3-11) BUN (6-23) mg/dl Creatinine (0.6-1.2) mg/dl Est Cr Clr Drug Dosing ml/min Est GFR ( Amer) ml/min Est GFR (Non-Af Amer) ml/min BUN/Creatinine Ratio (10-20) Glucose (70-99(Fasting)) mg/dl Lactate (0.4-2.0) mmol/L Calcium (8.5-10.1) mg/dl Magnesium (1.7-2.4) mg/dl Total Bilirubin (0.2-1.0) mg/dl AST (13-39) U/L ALT (7-52) U/L Alkaline Phosphatase (34-104) U/L Troponin I (0-0.04) ng/ml Total Protein (6.0-8.3) gm/dl Albumin (3.4-5.0) gm/dl Globulin (2.5-4.0) gm/dl Albumin/Globulin Ratio (0.9-2) Procalcitonin (0-0.5) ng/ml Influ A Molecular Assay Negative (Negative) Influ B Molecular Assay Negative (Negative) SARS-CoV-2, RNA, NAAT (NEGATIVE) Administered Medications Discontinued Medications Acetaminophen (Acetaminophen 500 Mg Tab) 1,000 mg PO NOW STA Stop: 09/28/21 12:32 Last Admin: 09/28/21 12:49 Dose: 1,000 mg Documented by: [id number] Albuterol (Albut/Ipratrop 3mg/0.5mg Neb 3 Ml Vial) 3 ml NEB NOW STA; Protocol Stop: 09/28/21 15:49 Last Admin: 09/28/21 15:57 Dose: 3 ml Documented by: [id number] Sodium Chloride (Nss 1000ml) 1,000 mls @ 999 mls/hr IV .Q1H1M SIMONA Stop: 09/28/21 13:30 Last Infusion: 09/28/21 14:52 Dose: 0 mls/hr Documented by: [id number] Admin: 09/28/21 12:49 Dose: 999 mls/hr Documented by: [id number] Levofloxacin/Dextrose (Levaquin/D5w) 750 mg in 150 mls @ 100 mls/hr IV NOW STA Stop: 09/28/21 14:00 Last Infusion: 09/28/21 14:52 Dose: 0 mls/hr Documented by: [id number] Admin: 09/28/21 13:16 Dose: 100 mls/hr Documented by: [id number] Magnesium Sulfate/Dextrose (Magnesium Sulfate / D5w) 1 gm in 100 mls @ 100 mls/hr IV NOW STA Stop: 09/28/21 14:17 Last Infusion: 09/28/21 15:47 Dose: 0 mls/hr Documented by: [id number] Admin: 09/28/21 14:51 Dose: 100 mls/hr Documented by: [id number] Methylprednisolone (Methylprednisolone 125 Mg/2 Ml Vial) 60 mg IV NOW STA Stop: 09/28/21 15:49 Last Admin: 09/28/21 15:57 Dose: 60 mg Documented by: [id number] Morphine Sulfate (Morphine Sulfate 4 Mg/Ml 1 Ml Carp\Vial) 4 mg IV NOW STA Stop: 09/28/21 12:33 Last Admin: 09/28/21 12:48 Dose: 4 mg Documented by: [id number] Ondansetron HCl (Ondansetron Inj 2 Mg/Ml 2 Ml Vial) 4 mg IV NOW STA Stop: 09/28/21 12:33 Last Admin: 09/28/21 12:49 Dose: Not Given Documented by: [id number] Imaging Data Radiologist's Impression: Chest X-Ray 09/28/21 12:28 SINGLE VIEW CHEST CLINICAL HISTORY: Sepsis. FINDINGS: 2 AP, portable, upright chest radiographs are compared to study dated 08/24/2021 and correlated with chest CT dated 02/21/2021. The examination is degraded by portable technique and patient rotation. The heart is mildly enlarged noting atherosclerotic calcification of the thoracic aorta. The pulmonary vasculature is noncongested. Enlargement of the central pulmonary arteries suggests pulmonary artery hypertension. Emphysema and chronic interstitial thickening is similar to previous. A 2.1 cm spiculated nodule is again seen in the right upper lobe. There are bibasilar airspace opacities. No large pleural effusion or pneumothorax is identified. The skeletal structures are osteopenic. The bony thorax is grossly intact. IMPRESSION: 1. Bibasilar opacities could represent scarring/atelectasis versus a mild infectious/inflammatory pneumonitis. Clinical correlation will be required. 2. Cardiomegaly and emphysema. 3. A 2.1 cm spiculated nodule is again seen in the right upper lobe. ACT 112: Negative or not required by law. Electronically signed by: Jaxon Felipe M.D. 09/28/2021 1:[address] 09/28/21 12:28 CT OF THE LEFT FOOT WITHOUT CONTRAST CLINICAL HISTORY: Left foot pain. Possible abscess or osteomyelitis. COMPARISON STUDY: Left foot radiographs August 24, 2021. TECHNIQUE: Axial images of the left foot were obtained without IV contrast. Sagittal and coronal reconstructions were viewed. Automated exposure control was utilized for the study. A dose lowering technique was utilized adhering to the principles of ALARA. FINDINGS: Alignment of the left foot is anatomic. Tarsometatarsal joints are intact. No fluid collection is identified on this unenhanced exam to suggest an abscess. There is no soft tissue gas. No acute fracture is identified within the left foot. There is no CT evidence for acute osteomyelitis. A bone island within the distal phalanx of the left first toe is noted. There is a bipartite medial sesamoid of the left great toe. There is mild osteoarthritis within the left first metatarsophalangeal joint. Talar dome is intact. There are no suspicious osseous lesions. Mild osteoarthrosis noted within multiple midfoot articulations. Posterior and plantar calcaneal spurring is present. IMPRESSION: 1. No acute fracture or dislocation within the left foot. No CT evidence for acute osteomyelitis. 2. Mild osteoarthritis within multiple articulations of the left foot. 2. No fluid collection identified to suggest an abscess. ACT 112: Negative or not required by law. Electronically signed by: Woody Albright M.D. 09/28/2021 3:34 PM Discharge Plan Visit Data Chief Complaint: Shortness of Breath/Dyspnea Stated Complaint: SOB ED Provider: Jaxon Evans Discharge Problem: SOB (shortness of breath), Pneumonia, COPD exacerbation, Cellulitis, Left leg pain Patient Disposition: Admitted As Inpatient Condition: Fair Forms Stand Alone Forms: [facility] Prescriptions Prescriptions: No Action sertraline [Zoloft] 100 mg tablet 100 mg PO QAM RF: 0 Combivent Respimat 20-100 mcg/actuation Mist 1 puff INHALATION Q4H PRN (Reason: Shortness Of Breath Or Wheezing) RF: 0 furosemide 20 mg tablet 20 mg PO DAILY PRN (Reason: swelling) RF: 0 levothyroxine 112 mcg tablet 112 mcg PO DAILYBB RF: 0 albuterol sulfate 2.5 mg /3 mL (0.083 %) solution for nebulization 2.5 mg continuous nebulization Q4 PRN (Reason: cough,sob) RF: 0 potassium chloride 20 mEq tablet extended release 20 meq PO DAILY Qty: 30 RF: 0 theophylline 100 mg Tablet Extended Release 12 Hr 100 mg PO BID RF: 0 Referrals Referrals: Arthur Cruz [Primary Care Provider] -
[2021-09-28 12:40] LABS: Basophils # (auto) 0.03 K/uL (0-0.2); Basophils % (auto) 0.4 %; Eosinophils # (auto) 1.06 K/uL (0-0.5); Eosinophils % (auto) 12.7 %; Hematocrit (blood only) 37.7 % (37-47); Hemoglobin 12.2 g/dL (12.0-16.0); Immature Granulocytes # (auto) 0.03 K/uL (0.00-0.02); Immature Granulocytes % (auto) 0.4 %; Lymphocytes # (auto) 2.06 K/uL (1.2-3.4); Lymphocytes % (auto) 24.6 %; Mean Corpuscular Hemoglobin 27.7 pg (25-34); Mean Corpuscular Hgb Conc 32.4 g/dL (32-36); Mean Corpuscular Volume 85.7 fL (80-100); Mean Platelet Volume 11.3 fL (7.4-10.4); Monocytes # (auto) 0.75 K/uL (0.11-0.59); Neutrophils # (auto) 4.44 K/uL (1.4-6.5); Neutrophils % (auto) 52.9 %; Platelet Count 181 K/uL (130-400); RDW Coefficient of Variation 15.8 % (11.5-14.5); RDW Standard Deviation 50.1 fL (36.4-46.3); White Blood Count 8.37 K/uL (4.8-10.8)
[2021-09-28 12:52] LABS: Partial Thromboplastin Ratio 0.9; Partial Thromboplastin Time 23.9 Seconds (21.0-31.0)
[2021-09-28 12:53] LABS: Troponin I < 0.03 ng/ml (0-0.04)
[2021-09-28 12:54] LABS: Alanine Aminotransferase 5 U/L (7-52); Albumin Globulin Ratio 1.4 (0.9-2); Albumin Level 3.6 gm/dl (3.4-5.0); Alkaline Phosphatase 96 U/L (34-104); Anion Gap 7 (3-11); Aspartate Aminotransferase 11 U/L (13-39); BUN Creatinine Ratio 8.3 (10-20); Bilirubin,Total 1.1 mg/dl (0.2-1.0); Blood Urea Nitrogen 14 mg/dl (6-23); Calcium 9.3 mg/dl (8.5-10.1); Carbon Dioxide 24 mmol/L (21-32); Chloride 105 mmol/L (98-107); Creatinine Clr Calc Pharmacy 31.1 ml/min; Est GFR (African American) 33.4 ml/min; Est GFR (Non-African American) 28.8 ml/min; Globulin 2.5 gm/dl (2.5-4.0); Glucose 142 mg/dl (70-99(Fasting)); Magnesium 1.5 mg/dl (1.7-2.4); Potassium 3.8 mmol/L (3.5-5.1); Sodium 136 mmol/L (136-145); Total Protein 6.1 gm/dl (6.0-8.3)
[2021-09-28] MEDS ORDERED: MAGNESIUM SULFATE / D5W 1 GM/100 ML BAG IV STA (13:18)
--- NOTE | 2021-09-28 13:38 | XRay Report ---
SINGLE VIEW CHEST CLINICAL HISTORY: Sepsis. FINDINGS: 2 AP, portable, upright chest radiographs are compared to study dated 08/24/2021 and correlat ed with chest CT dated 02/21/2021. The examination is degraded by portable technique and patient rotati on. The heart is mildly enlarged noting atherosclerotic calcification of the thoracic aorta. The pu lmonary vasculature is noncongested. Enlargement of the central pulmonary arteries suggests pulmonary artery hypertension. Emphysema and chronic interstitial thickening is similar to previous. A 2.1 cm spiculated nodule is again seen in the right upper lobe. There are bibasilar airspace opacities. No l arge pleural effusion or pneumothorax is identified. The skeletal structures are osteopenic. The bony thorax is grossly intact. IMPRESSION: 1. Bibasilar opacities could represent scarring/atelectasis versus a mild infectious/inflammatory pne umonitis. Clinical correlation will be required. 2. Cardiomegaly and emphysema. 3. A 2.1 cm spiculated nodule is again seen in the right upper lobe. ACT 112: Negative or not required by law. Electronically signed by: Jaxon Felipe M.D. 09/28/2021 1:37 PM
[2021-09-28 14:03] LABS: Influenza A virus by PCR Negative (Negative); Influenza B virus by PCR Negative (Negative)
--- NOTE | 2021-09-28 15:35 | CT Scan Report ---
CT OF THE LEFT FOOT WITHOUT CONTRAST CLINICAL HISTORY: Left foot pain. Possible abscess or osteomyelitis. COMPARISON STUDY: Left foot radiographs August 24, 2021. TECHNIQUE: Axial images of the left foot were obtained without IV contrast. Sagittal and coronal monty nstructions were viewed. Automated exposure control was utilized for the study. A dose lowering tech nique was utilized adhering to the principles of ALARA. FINDINGS: Alignment of the left foot is anatomic. Tarsometatarsal joints are intact. No fluid collect ion is identified on this unenhanced exam to suggest an abscess. There is no soft tissue gas. No acut e fracture is identified within the left foot. There is no CT evidence for acute osteomyelitis. A bon e island within the distal phalanx of the left first toe is noted. There is a bipartite medial sesamo id of the left great toe. There is mild osteoarthritis within the left first metatarsophalangeal join t. Talar dome is intact. There are no suspicious osseous lesions. Mild osteoarthrosis noted within mu ltiple midfoot articulations. Posterior and plantar calcaneal spurring is present. IMPRESSION: 1. No acute fracture or dislocation within the left foot. No CT evidence for acute osteomyelitis. 2. Mild osteoarthritis within multiple articulations of the left foot. 2. No fluid collection identified to suggest an abscess. ACT 112: Negative or not required by law. Electronically signed by: Woody Albright M.D. 09/28/2021 3:34 PM
[2021-09-28] MEDS ORDERED: ALBUT/IPRATROP 3MG/0.5MG NEB 3 ML VIAL NEB STA (15:48)
[2021-09-28] MEDS ORDERED: methylPREDNISolone 125 MG/2 ML VIAL IV STA (15:48)
--- NOTE | 2021-09-28 17:15 | History & Physical Report ---
Date of Service September 28, 2021 Assessment & Plan (1) Acute and chronic respiratory failure: Plan: - DDx includes AECOPD vs pneumonia. Patient received albuterol as well as methylprednisolone 60 mg in ED, she reports alleviation in her shortness of breath with this. No leukocytosis, procalcitonin is not elevated, did have a temperature of 100.2 in ED, does have expiratory wheezes heard bilaterally throughout on exam. Baseline O2 requirement of 2L NC at night; currently on 3L NC. - Duonebs scheduled q6h, albuterol inhaler every 4 as needed. - Levaquin initiated in ED, will D/C this and start on doxycycline 100 mg twice daily. - Continue theophylline 300 mg twice daily. (2) COPD (chronic obstructive pulmonary disease): Plan: - As above. (3) Left foot pain: Plan: - Patient reports she has episodes of severe pain and erythema in her bilateral legs that seem to correlate with when she runs out of her hydrocortisone. Suspect that the erythema and tenderness of her foot and ankle joint today is due to this, she ran of hydrocortisone about a week ago. - ESR, CRP and BRET ordered to investigate possible rheumatologic disease. -We will continue hydrocortisone 20 mg in a.m., 10 mg in the afternoon. (4) DM2 (diabetes mellitus, type 2): Plan: - Not on medication at home. Glucose today is 142. - NovoLog sliding scale with Accu-Cheks AC at bedtime. Can add on Lantus if glucose is consistently > 180. (5) Chronic renal failure, stage 3 (moderate): Plan: - Cr 1.69, BUN 14, appear to be at baseline. - Avoid nephrotoxic agents, renally dose all medications. - Continue KCl 20 mEq daily. (6) Hypothyroidism: Plan: - Continue levothyroxine 12 mcg daily. (7) ACTH deficiency: Plan: - Chronic, stable, not presenting in acute adrenal crisis. - Continue hydrocortisone 20 mg p.o. every morning and 10 mg p.o. every afternoon. (8) Depression: Plan: - Chronic, stable. - Continue zoloft. (9) Hypomagnesemia: Plan: - 1.5 in ED, 1g given in ED for repletion. -Recheck in AM. Plan: -Admit to med/surg with tele. -SCDs, SC Heparin for DVT ppx. -Full Code. History of Present Illness Primary Care Provider: Arthur Cruz Patient is a 76-year-old female with a past medical history of adrenal insufficiency, hypothyroidism, CKD IIIa, depression, COPD, DM2, and NSCLC (2017) who presents today with onset of shortness of breath this morning. Patient states that this morning around 4:30 AM, she became short of breath. She took her home inhalers with only slight alleviation. She noted becoming increasingly worse throughout the day, both at rest and with exertion which prompted her to call EMS for further evaluation ED. She notes occasional palpitations on and off for the past several weeks however otherwise denies fever/chills, myalgias, fatigue, chest pain, nausea/vomiting, abdominal pain, increased urinary frequency/urgency, dysuria, diarrhea, constipation. Patient does wer 2L NC at night. In addition to this, she has left lower foot/ankle erythema and pain that has been ongoing for the past 3 to 4 days. She states this is a chronic issue that comes and goes for her, she denies any recent or distant injury to the ankle. Sometimes it affects her right ankle as well. Of note, within the past week she ran out of her hydrocortisone which she takes for an adrenal insufficiency and several days later, her foot became painful and swollen. Allergies Allergy/AdvReac Type Severity Reaction Status Date / Time Penicillins Allergy Severe TONGUE Verified 09/28/21 17:09 SWELLING adhesive Allergy Intermediate PULLS SKIN Verified 09/28/21 17:09 OFF azithromycin AdvReac Intermediate Nausea Verified 09/28/21 17:09 Home Medications Medication Instructions Recorded Confirmed Type ipratropium 20 mcg-albuterol 100 1 puff INHALATION Q4H PRN 07/17/18 09/28/21 History mcg/actuation mist for inhalation (Combivent Respimat) sertraline 100 mg tablet (Zoloft) 100 mg PO QAM 07/17/18 09/28/21 History albuterol sulfate 2.5 mg CONTINUOUS NEBULIZATION Q4 01/15/21 09/28/21 History PRN potassium chloride 20 mEq 20 meq PO DAILY #30 tab 03/27/21 09/28/21 Rx tablet,extended release furosemide 20 mg tablet 20 mg PO DAILY PRN 07/22/21 09/28/21 History levothyroxine 112 mcg tablet 112 mcg PO DAILYBB 07/22/21 09/28/21 History theophylline 100 mg 100 mg PO BID 09/28/21 09/28/21 History tablet,extended release,12 hr Past Med/Surg History Medical History Abdominal pain ACTH deficiency Acute electrocardiogram changes Adrenal adenoma Arthritis Chest pain Chronic renal failure, stage 3 (moderate) COPD (chronic obstructive pulmonary disease) COVID-19 05/2020 Depression Diabetes Diffuse abdominal pain Fall Fever Hypoxia Injury of foot Lung cancer 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 Nausea, vomiting, and diarrhea Neutropenic fever Orthostatic hypotension Pancytopenia Right knee DJD Secondary adrenal insufficiency Syncope Tachycardia Vomiting Surgical History Hx of right knee surgery Family History Mother Heart disease Father , in his 90s - old age COPD (chronic obstructive pulmonary disease) Other Diabetes Hypertension Lung disease Social History Smoking Status: Light tobacco smoker Tobacco Type: Cigarettes Age Started Using Tobacco: 19; Age Quit Using Tobacco: 75; packs per day: 0.5; Second Hand Exposure: No; Do You Dip or Chew Tobacco: No; Tobacco Cessation Education Requested by Patient: No Hx Alcohol Use: No Hx Substance Use: No Preferred Language: Lithuanian Communication Ability: Effective Dairy Husbandman Required: No Beliefs That Will Affect Care: None marital status: / Current Living Situation: Family Current Living Situation Comment: granddaughter current occupational status: retired How many Children do You have: 4 Other Information That Helps Us Care for You: 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 Feels Safe at Home: Yes Safety Concerns: Feels Safe At This Time Assistive Devices: Oxygen - Continuous and Walker Review of Systems Review of Systems: Constitutional: Reports decreased appetite; no fever, sweats or chills Eyes: No diplopia, no worsening or blurred vision ENT: normal hearing, no trouble swallowing Respiratory: Reports acute onset of shortness of breath this morning around 4:30 AM; also reports ongoing cough productive of clear sputum for several weeks Cardiovascular: Reports occasional palpitations over the past several weeks to months; no chest pain/tightness Abdomen: No pain, nausea, vomiting, diarrhea or constipation Musculoskeletal: reports left ankle/foot pain with light palpation Neurologic: No weakness, numbness/tingling, or balance problems Psychiatric: No anxiety or depression Skin: No rash or itch Physical Exam Physical Exam: General: awake, alert, no apparent distress Head: Normocephalic, atraumatic ENT: PERRL, EOMI, no pharyngeal exudate, mucous membranes moist Chest: Expiratory rales heard throughout, on 3 L NC Cardiac: Regular rate and rhythm, no murmur, no JVD, normal peripheral pulses, good capillary refill Abdominal: NABS x 4 quadrants, soft, nontender to palpation, no rebound, guarding or tenderness Extremities: Left food mildly erythematous and tender to palpation, minimal swelling noted; Otherwise normal inspection, no peripheral edema or erythema, calfs nontender to palpation Psych: Normal mood and affect Neuro: AAO x 3, strength intact bilaterally and rated 5/5, no motor deficits, speech is clear, no peripheral sensory deficits Skin: no rash or erythema Results & Data Results & Data ([facility]) Vital Signs (Past 12 Hours) Vital Signs Temp Pulse Resp BP Pulse Ox 09/28/21 14:30 88 17 106/54 L 96 09/28/21 14:01 90 27 H 102/55 L 96 09/28/21 13:30 87 17 107/71 97 09/28/21 13:21 89 L 09/28/21 13:00 92 H 19 115/56 L 90 09/28/21 12:28 20 95 09/28/21 12:16 37.9 C H 88 20 113/69 92 Laboratory Results Abnormal lab results 09/28/21 09/28/21 Range/Units 12:10 12:10 RDW Std Deviation 50.1 H (36.4-46.3) fL RDW Coeff of Myae 15.8 H (11.5-14.5) % MPV 11.3 H (7.4-10.4) fL [place]bs # (Auto) 0.75 H (0.11-0.59) K/uL Eos # (Auto) 1.06 H (0-0.5) K/uL Immature Gran # (Auto) 0.03 H (0.00-0.02) K/uL Creatinine 1.69 H (0.6-1.2) mg/dl BUN/Creatinine Ratio 8.3 L (10-20) Glucose 142 H (70-99(Fasting)) mg/dl Magnesium 1.5 L (1.7-2.4) mg/dl Total Bilirubin 1.1 H (0.2-1.0) mg/dl AST 11 L (13-39) U/L ALT 5 L (7-52) U/L Diagnostic Findings Chest X-Ray 09/28/21 12:28 SINGLE VIEW CHEST CLINICAL HISTORY: Sepsis. FINDINGS: 2 AP, portable, upright chest radiographs are compared to study dated 08/24/2021 and correlated with chest CT dated 02/21/2021. The examination is degraded by portable technique and patient rotation. The heart is mildly enlarged noting atherosclerotic calcification of the thoracic aorta. The pulmonary vasculature is noncongested. Enlargement of the central pulmonary arteries suggests pulmonary artery hypertension. Emphysema and chronic interstitial thickening is similar to previous. A 2.1 cm spiculated nodule is again seen in the right upper lobe. There are bibasilar airspace opacities. No large pleural effusion or pneumothorax is identified. The skeletal structures are osteopenic. The bony thorax is grossly intact. IMPRESSION: 1. Bibasilar opacities could represent scarring/atelectasis versus a mild infectious/inflammatory pneumonitis. Clinical correlation will be required. 2. Cardiomegaly and emphysema. 3. A 2.1 cm spiculated nodule is again seen in the right upper lobe. ACT 112: Negative or not required by law. Electronically signed by: Jaxon Felipe M.D. 09/28/2021 1:[address] 09/28/21 12:28 CT OF THE LEFT FOOT WITHOUT CONTRAST CLINICAL HISTORY: Left foot pain. Possible abscess or osteomyelitis. COMPARISON STUDY: Left foot radiographs August 24, 2021. TECHNIQUE: Axial images of the left foot were obtained without IV contrast. Sagittal and coronal reconstructions were viewed. Automated exposure control was utilized for the study. A dose lowering technique was utilized adhering to the principles of ALARA. FINDINGS: Alignment of the left foot is anatomic. Tarsometatarsal joints are intact. No fluid collection is identified on this unenhanced exam to suggest an abscess. There is no soft tissue gas. No acute fracture is identified within the left foot. There is no CT evidence for acute osteomyelitis. A bone island within the distal phalanx of the left first toe is noted. There is a bipartite medial sesamoid of the left great toe. There is mild osteoarthritis within the left first metatarsophalangeal joint. Talar dome is intact. There are no suspicious osseous lesions. Mild osteoarthrosis noted within multiple midfoot articulations. Posterior and plantar calcaneal spurring is present. IMPRESSION: 1. No acute fracture or dislocation within the left foot. No CT evidence for acute osteomyelitis. 2. Mild osteoarthritis within multiple articulations of the left foot. 2. No fluid collection identified to suggest an abscess. ECG Additional Comments: Accelerated Junctional rhythm Nonspecific ST and T wave abnormality Abnormal ECG When compared with ECG of 24-AUG-2021 20:08, Junctional rhythm has replaced Sinus rhythm Nonspecific T wave abnormality now evident in Anterior leads Code Status & VTE Plan Code Status Full code. VTE Prophylaxis Plan VTE Prophylaxis will be ordered: Yes Supervising Physician Co-Signing Physician Notes I personally saw and examined the patient. I verified all sams points and agree with Cora Chamberlain PA-C with the following exceptions and/or additions: 76 year old female admission for shortness of breath and left foot pain. Re portedly she ran out of hydrocortisone and her b/l foot pain has been much worse stopping this. 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 PG Care Time/CCT Total # of Minutes Spent Total Time Spent with Patient: Total time spent is greater than 50% in coordination of care (as documented) at patient's floor/unit and/or counseling patient: Coding Level of Care Code 64434 Initial Inpt Care Lvl 3 Diagnoses Acute and chronic respiratory failure J96.21 Respiratory failure complication: hypoxia COPD (chronic obstructive pulmonary disease) J44.9 DM2 (diabetes mellitus, type 2) E11.9 Chronic renal failure, stage 3 (moderate) N18.30 Chronic kidney disease stage 3 subtype: unspecified whether 3a or 3b Hypothyroidism E03.9 ACTH deficiency E23.6 Depression F32.9 Hypomagnesemia E83.42 Left foot pain M79.672 (1) Acute and chronic respiratory failure Respiratory failure complication: hypoxia Qualified Code(s): J96.21 - Acute and chronic respiratory failure with hypoxia (2) Chronic renal failure, stage 3 (moderate) Chronic kidney disease stage 3 subtype: unspecified whether 3a or 3b Qualified Code(s): N18.30 - Chronic kidney disease, stage 3 unspecified
[2021-09-28] MEDS ORDERED: GLUCAGON FOR INJ 1 MG VIAL SQ PRN (20:22)
[2021-09-28] MEDS ORDERED: traMADol HCL 50 MG TABLET PO PRN (20:22)
[2021-09-28] MEDS ORDERED: IPRATROPIUM BROMIDE/ALBUTEROL respimat INH INH PRN (20:22)
[2021-09-28] MEDS ORDERED: DEXTROSE 50% 50 ML SYRINGE IV PRN (20:22)
[2021-09-28] MEDS ORDERED: FUROSEMIDE 20 MG TAB PO PRN (20:22)
[2021-09-28] MEDS ORDERED: ALBUTEROL 0.083% NEBU SOLN 3 ML VIAL INH PRN (20:22)
[2021-09-28] MEDS ORDERED: GLUCOSE 10 TABS/TUBE PO PRN (20:22)
[2021-09-28] MEDS ORDERED: DIPHENOXYLATE/ATROPINE 2.5/0.025MG TAB PO PRN (20:22)
[2021-09-28] MEDS ORDERED: ONDANSETRON INJ 2 MG/ML 2 ML VIAL IV PRN (20:22)
[2021-09-28] MEDS ORDERED: CYCLOBENZAPRINE HCL 10 MG TAB PO PRN (20:22)
[2021-09-28] MEDS ORDERED: CARBOHYDRATES FOR HYPOGLYCEMIA PO PRN (20:22)
[2021-09-28] MEDS ORDERED: POLYETHYLENE (MIRALAX) 17 GM PACK PO PRN (20:22)
[2021-09-28] MEDS ORDERED: GLUCOSE 40% GEL 15 GM TUBE PO PRN (20:22)
[2021-09-28] MEDS ORDERED: Ipratropium HFA Inhaler (Combivent Respimat P&T Subs) INH PRN (20:54)
[2021-09-28] MEDS ORDERED: Albuterol HFA 8 GM Inhaler (Combivent Respimat P&T Subs) INH PRN (20:54)
[2021-09-28] MEDS ORDERED: methylPREDNISolone 40 MG in SYRINGE 0 ML IV SCH (21:00)
[2021-09-28] MEDS: INSULIN ASPART PER UNIT SC SCH (21:24)
[2021-09-28] MEDS: DOXYCYCLINE HYCLATE 100 MG CAP PO SCH (21:26)
[2021-09-28] MEDS: HEPARIN SOD 5,000 UNIT/0.5 ML VIAL SQ SCH (21:26)
[2021-09-28] MEDS: THEOPHYLLINE 300MG EXTENDED REL TAB PO SCH (21:27)
--- NOTE | 2021-09-28 21:38 | Electrocardiogram Report ---
Test Reason : Blood Pressure : / mmHG Vent. Rate : 088 BPM Atrial Rate : 088 BPM P-R Int : 136 ms QRS Dur : 084 ms QT Int : 368 ms P-R-T Axes : 000 -04 041 degrees QTc Int : 445 ms Poor data quality, interpretation may be adversely affected Normal sinus rhythm Nonspecific ST and T wave abnormality Abnormal ECG When compared with ECG of 24-AUG-2021 20:08, Nonspecific T wave abnormality now evident in Anterior leads Confirmed by Jose Ramon Charles ([id number]) on 09/28/2021 9:38:26 PM Referred By: REFERRED SELF Confirmed By:Jose Ramon Charles
[2021-09-28] MEDS: ALBUT/IPRATROP 3MG/0.5MG NEB 3 ML VIAL INH SCH (21:46)
[2021-09-29] MEDS: LEVOTHYROXINE SODIUM 112 MCG TABLET PO SCH (05:47)
[2021-09-29 06:51] LABS: Hematocrit (blood only) 35.2 % (37-47); Hemoglobin 11.6 g/dL (12.0-16.0); Immature Granulocytes # (auto) 0.01 K/uL (0.00-0.02); Immature Granulocytes % (auto) 0.2 %; Lymphocytes # (auto) 0.31 K/uL (1.2-3.4); Lymphocytes % (auto) 7.5 %; Mean Corpuscular Hemoglobin 27.9 pg (25-34); Mean Corpuscular Volume 84.6 fL (80-100); Mean Platelet Volume 10.9 fL (7.4-10.4); Monocytes # (auto) 0.13 K/uL (0.11-0.59); Monocytes % (auto) 3.1 %; Neutrophils # (auto) 3.71 K/uL (1.4-6.5); Neutrophils % (auto) 89.2 %; Platelet Count 169 K/uL (130-400); RDW Coefficient of Variation 15.3 % (11.5-14.5); RDW Standard Deviation 47.8 fL (36.4-46.3); Red Blood Count 4.16 M/uL (4.2-5.4); White Blood Count 4.16 K/uL (4.8-10.8)
[2021-09-29] MEDS: ALBUT/IPRATROP 3MG/0.5MG NEB 3 ML VIAL INH SCH ×4 (07:15→19:03)
[2021-09-29 07:23] LABS: BUN Creatinine Ratio 10.1 (10-20); Calcium 9.8 mg/dl (8.5-10.1); Creatinine Clr Calc Pharmacy 29.2 ml/min; Est GFR (African American) 31.1 ml/min; Est GFR (Non-African American) 26.9 ml/min; Magnesium 1.8 mg/dl (1.7-2.4); Potassium 5.1 mmol/L (3.5-5.1)
[2021-09-29 07:39] LABS: Estimated Average Glucose 166 mg/dl; Hemoglobin A1C 7.4 % (4.5-5.6)
[2021-09-29] MEDS: SERTRALINE HCL 100 MG TABLET PO SCH (08:26)
[2021-09-29] MEDS: FAMOTIDINE 20 MG TAB PO SCH (08:26)
[2021-09-29] MEDS: FOLIC ACID 1 MG TAB PO SCH (08:27)
[2021-09-29] MEDS: THEOPHYLLINE 300MG EXTENDED REL TAB PO SCH ×2 (08:27→20:07)
[2021-09-29] MEDS: HYDROCORTISONE 10 MG TAB PO SCH ×2 (08:27→16:03)
[2021-09-29] MEDS: HEPARIN SOD 5,000 UNIT/0.5 ML VIAL SQ SCH ×2 (08:27→20:09)
[2021-09-29] MEDS: DOXYCYCLINE HYCLATE 100 MG CAP PO SCH ×2 (08:28→20:08)
[2021-09-29] MEDS: INSULIN ASPART PER UNIT SC SCH ×4 (08:29→21:33)
[2021-09-29] MEDS: POTASSIUM CHLORIDE CRTAB 20 MEQ TABCR PO SCH (08:35)
[2021-09-29] MEDS ORDERED: COLCHICINE 0.6 MG TAB PO ONE (09:20)
[2021-09-29] MEDS: oxyCODONE HCL IR 5 MG TAB (IMMEDIATE RELEASE) PO PRN ×2 (09:54→20:08)
[2021-09-29] MEDS: CALCIUM CARBONATE 500 MG CHEWABLE TAB PO PRN ×3 (12:06→22:03)
--- NOTE | 2021-09-29 12:14 | Hospitalist Progress Note ---
Date of Service September 29, 2021 Assessment & Plan (1) Acute and chronic respiratory failure: Plan: Acute exacerbation of COPD. - Duonebs scheduled q6h, albuterol inhaler every 4 as needed. - Levaquin initiated in ED, will D/C this and start on doxycycline 100 mg twice daily. - Continue theophylline 300 mg twice daily. - Improved today. (2) Left foot pain: Plan: Patient reported 3-4 days of left foot pain. Uric acid is 9.6 this admission, and she has had prior gout attacks. - ESR, CRP elevated. BRET pending. - Given colchicine 0.6 mg PO x 1 (due to renal function). - We will continue hydrocortisone 20 mg in a.m., 10 mg in the afternoon. - Pain control. Monitor. (3) COPD (chronic obstructive pulmonary disease): Plan: - As above. (4) DM2 (diabetes mellitus, type 2): Plan: Not on medication at home. A1c is 7.4% this admission. - NovoLog sliding scale with Accu-Cheks AC at bedtime. Blood sugars 200 - 250 in last 24 hours. (5) Chronic renal failure, stage 3 (moderate): Plan: Baseline Cr 1.7 - 2.1. - Avoid nephrotoxic agents, renally dose all medications. - Continue KCl 20 mEq daily. (6) Hypothyroidism: Plan: TSH was 2.8 this admission. - Continue levothyroxine 112 mcg daily (7) ACTH deficiency: Plan: Chronic, stable, not presenting in acute adrenal crisis. - Continue hydrocortisone 20 mg p.o. every morning and 10 mg p.o. every afternoon. (8) Depression: Plan: Chronic, stable. - Continue Zoloft. (9) DVT prophylaxis: Plan: Heparin 5,000 units SQ Q12h Admission and Anticipated Discharge Date Admission Date: September 28, 2021 Subjective Her breathing is back to baseline at this point. At this point, her left foot is the most pertinent issue for her. It is painful for her to move at all, and it is painful even to light touch. She reports she was quite cold overnight, but de nies fevers/chills. Reports no chest pain, shortness of breath, abdominal pain, nausea, or vomiting. Physical Exam Constitutional: WD/WN, vitals as above + acute distress Eyes: EOM intact bilaterally; no conjunctival abnormality ENMT: external ear and nose normal, oropharynx normal Neck: trachea midline, no thyromegaly normal visual inspection Respiratory: normal respiratory effort, lungs clear to auscultation no respiratory distress and no labored breathing Auscultation: no wheezes Cardiovascular: RRR, no murmur, no edema Gastrointestinal (Abdomen): Inspection/Auscultation: abdomen normal to inspection; abdomen not distended Musculoskeletal: no cyanosis or clubbing, extremities motor strength 5/5 Left foot with some mild erythema on dorsal aspect. Exquisitely tender to palpation. Skin: no rashes, warm and dry Neurologic: moves all extremities and awake Psychiatric: Orientation: alert, oriented to person and cooperative Results & Data Results & Data ([facility]) Vital Signs (Past 12 Hours) Vital Signs Temp Pulse Pulse Pulse Resp BP Pulse Ox 09/29/21 07:42 36.4 C L 98 H 22 107/53 L 99 09/29/21 07:35 82 09/29/21 07:15 90 16 97 09/29/21 03:00 36.4 C L 85 18 117/74 95 09/29/21 02:05 88 09/29/21 00:00 76 15 94 PG Care Time/CCT Total # of Minutes Spent Total Time Spent with Patient: Total time spent is greater than 50% in coordination of care (as documented) at patient's floor/unit and/or counseling patient: Coding Level of Care Code 99719 Subseq Hosp Care Lvl 3 Diagnoses Acute and chronic respiratory failure J96.21 Respiratory failure complication: hypoxia COPD (chronic obstructive pulmonary disease) J44.9 Left foot pain M79.672 DM2 (diabetes mellitus, type 2) E11.9 Chronic renal failure, stage 3 (moderate) N18.30 Chronic kidney disease stage 3 subtype: unspecified whether 3a or 3b Hypothyroidism E03.9 ACTH deficiency E23.6 Depression F32.9 DVT prophylaxis Z29.9 (1) Acute and chronic respiratory failure Respiratory failure complication: hypoxia Qualified Code(s): J96.21 - Acute and chronic respiratory failure with hypoxia (2) Chronic renal failure, stage 3 (moderate) Chronic kidney disease stage 3 subtype: unspecified whether 3a or 3b Qualified Code(s): N18.30 - Chronic kidney disease, stage 3 unspecified
[2021-09-29] MEDS: ACETAMINOPHEN 325 MG TAB PO PRN (20:08)
[2021-09-30] MEDS: ALBUT/IPRATROP 3MG/0.5MG NEB 3 ML VIAL INH SCH (00:10)
--- NOTE | 2021-09-30 04:41 | Communication Note ---
Date of Service: September 30, 2021 Received message from RN stating that the patient gets tachycardic, very jumpy, and anxious for up to an hour after her albuterol inhaler. She refused tr eatment at midnight for that reason. As such, albuterol inhaler changed to Xopenex.
[2021-09-30] MEDS: LEVOTHYROXINE SODIUM 112 MCG TABLET PO SCH (06:55)
[2021-09-30] MEDS: LEVALBUTEROL 0.31MG/3 ML VIAL NEB SCH ×2 (07:08→12:59)
[2021-09-30 07:56] LABS: Hemoglobin 10.4 g/dL (12.0-16.0); Mean Corpuscular Hemoglobin 28.1 pg (25-34); Mean Corpuscular Hgb Conc 33.5 g/dL (32-36); Mean Corpuscular Volume 83.8 fL (80-100); Mean Platelet Volume 11.2 fL (7.4-10.4); Platelet Count 202 K/uL (130-400); RDW Coefficient of Variation 15.8 % (11.5-14.5); RDW Standard Deviation 48.5 fL (36.4-46.3); White Blood Count 7.55 K/uL (4.8-10.8)
[2021-09-30] MEDS: SERTRALINE HCL 100 MG TABLET PO SCH (08:19)
[2021-09-30] MEDS: HYDROCORTISONE 10 MG TAB PO SCH ×2 (08:19→15:24)
[2021-09-30] MEDS: DOXYCYCLINE HYCLATE 100 MG CAP PO SCH ×2 (08:19→19:59)
[2021-09-30] MEDS: FOLIC ACID 1 MG TAB PO SCH (08:19)
[2021-09-30] MEDS: HEPARIN SOD 5,000 UNIT/0.5 ML VIAL SQ SCH ×2 (08:19→19:59)
[2021-09-30] MEDS: THEOPHYLLINE 300MG EXTENDED REL TAB PO SCH ×2 (08:19→19:59)
[2021-09-30] MEDS: FAMOTIDINE 20 MG TAB PO SCH (08:19)
[2021-09-30] MEDS: INSULIN ASPART PER UNIT SC SCH ×4 (08:20→20:34)
[2021-09-30 08:25] LABS: BUN Creatinine Ratio 15.2 (10-20); Calcium 9.9 mg/dl (8.5-10.1); Creatinine Clr Calc Pharmacy 26.4 ml/min; Est GFR (African American) 27.6 ml/min; Est GFR (Non-African American) 23.8 ml/min; Magnesium 1.9 mg/dl (1.7-2.4)
[2021-09-30] MEDS: POTASSIUM CHLORIDE CRTAB 20 MEQ TABCR PO SCH (08:26)
[2021-09-30 10:31] LABS: Anti Nuclear Antibody Screen NEGATIVE (NEGATIVE)
--- NOTE | 2021-09-30 11:44 | CT Scan Report ---
CT OF THE CHEST WITHOUT IV CONTRAST CLINICAL HISTORY: Hx of lung cancer COMPARISON STUDY: Chest CT February 21, 2021. Chest radiograph September 28, 2021. CT DOSE: 332.32 mGy.cm TECHNIQUE: Axial images of the chest were obtained without IV contrast. Images were reviewed in the axial, sagittal, and coronal planes. IV contrast was not administered for this examination. Automat ed exposure control was utilized for the study. A dose lowering technique was utilized adhering to t he principles of ALARA. FINDINGS: No enlarged axillary, mediastinal or hilar lymph nodes are present. There is no pericardia l effusion. Extensive coronary artery calcification is present. No pneumothorax or pleural effusion i s noted. There are no areas of consolidation to suggest pneumonia. A spiculated 2.5 x 0.9 cm right up per lobe nodule on image 108 of 311 has minimally increased in size since CT of February 21, 2021 when i t measured 1.9 x 0.8 cm. An adjacent irregular subpleural 1.8 cm right upper lobe nodule on image 104 is similar to prior exam. Additional smaller ground glass nodules within the bilateral upper lobes a re unchanged from prior exam. These are also similar to earlier study of December 03, 2020. Linear bilater al opacities reflect atelectasis. No pneumothorax or pleural effusion is present. No suspicious lesio ns identified within visualized portions of the bony thorax. A compression fracture involving the sup erior endplate of T11 with 30% loss of vertebral body height is new since prior CT. This is likely [facility] b[facility]. Old T12 compression fractures unchanged. Left adrenal adenoma is incidentally noted. IMPRESSION: 1. Slight increase in size of a spiculated 2.5 x 0.9 cm right upper lobe nodule since CT of February 21, 2021. This is suggestive of malignancy. 2. No change in the adjacent 1.8 cm subpleural right upper lobe nodule which could reflect an additio nal lesion or post treatment change. 3. No change in multiple smaller ground glass nodules. 4. No thoracic lymphadenopathy. 5. T11 compression fracture, likely subacute. ACT 112: Negative or not required by law. Electronically signed by: Woody Albright M.D. 09/30/2021 11:42 AM
[2021-09-30] MEDS: oxyCODONE HCL IR 5 MG TAB (IMMEDIATE RELEASE) PO PRN ×2 (12:05→20:02)
[2021-09-30] MEDS ORDERED: LACTATED RINGER'S 500 ML IV ONE (14:00)
--- NOTE | 2021-09-30 14:46 | Hospitalist Progress Note ---
Date of Service September 30, 2021 Assessment & Plan (1) Left foot pain: Plan: Likely gout attack from acute illness and stopping steroids for some time. Patient reported 3-4 days of left foot pain. Uric acid is 9.6 this admission, and she has had prior gout attacks. - ESR, CRP elevated. BRET pending. - Gave colchicine 0.6 mg PO x 1 (due to renal function) on 09/29. - We will continue hydrocortisone 20 mg in a.m., 10 mg in the afternoon. - Pain control. Monitor -> Improving. Able to walk on it some. With continued steroids, hopefully it continues to improve. -> Could consider starting allopurinol in 1-2 weeks after pain has resolved. Defer to PCP. (2) Acute and chronic respiratory failure: Plan: Acute exacerbation of COPD. - Duonebs scheduled q6h, albuterol inhaler every 4 as needed. - Levaquin initiated in ED, will D/C this and start on doxycycline 100 mg twice daily. - Continue theophylline 300 mg twice daily. - Improved today. Essentially back at baseline. (3) COPD (chronic obstructive pulmonary disease): Plan: - As above. (4) DM2 (diabetes mellitus, type 2): Plan: Not on medication at home. A1c is 7.4% this admission. - NovoLog sliding scale with Accu-Cheks AC at bedtime. Blood sugars 130 - 210 in last 24 hours. (5) Chronic renal failure, stage 3 (moderate): Plan: Baseline Cr 1.7 - 2.1. - Avoid nephrotoxic agents, renally dose all medications. - Continue KCl 20 mEq daily. -> Cr up to 2.0 today. Upper end of baseline. Gave small IV fluid bolus as she looks slightly hypovolemic. (6) Hypothyroidism: Plan: TSH was 2.8 this admission. - Continue levothyroxine 112 mcg daily (7) ACTH deficiency: Plan: Chronic, stable, not presenting in acute adrenal crisis. - Continue hydrocortisone 20 mg p.o. every morning and 10 mg p.o. every afternoon. (8) Depression: Plan: Chronic, stable. - Continue Zoloft. (9) DVT prophylaxis: Plan: Heparin 5,000 units SQ Q12h Admission and Anticipated Discharge Date Admission Date: September 28, 2021 Subjective Doing well today. She is still breathing well. Left foot is feeling better, but not at baseline yet. Reports no fevers/chills, chest pain, shortness of breath, abdominal pain, nausea, or vomiting. Physical Exam Constitutional: WD/WN, vitals as above + acute distress Eyes: EOM intact bilaterally; no conjunctival abnormality ENMT: external ear and nose normal, oropharynx normal Neck: trachea midline, no thyromegaly normal visual inspection Respiratory: normal respiratory effort, lungs clear to auscultation no respiratory distress and no labored breathing Auscultation: no wheezes Cardiovascular: RRR, no murmur, no edema Gastrointestinal (Abdomen): Inspection/Auscultation: abdomen normal to inspection; abdomen not distended Musculoskeletal: no cyanosis or clubbing, extremities motor strength 5/5 Skin: no rashes, warm and dry Left foot still mildly warm to touch. Tender to palpation. Neurologic: moves all extremities and awake Psychiatric: Orientation: alert, oriented to person and cooperative Results & Data Results & Data ([facility]) Vital Signs (Past 12 Hours) Vital Signs Temp Pulse Pulse Resp BP Pulse Ox 09/30/21 11:05 36.8 C 91 H 18 117/69 96 09/30/21 07:30 36.8 C 84 18 111/65 97 09/30/21 07:09 81 16 98 09/30/21 07:00 88 09/30/21 03:57 36.6 C 88 18 135/65 97 PG Care Time/CCT Total # of Minutes Spent Total Time Spent with Patient: Total time spent is greater than 50% in coordination of care (as documented) at patient's floor/unit and/or counseling patient: Coding Level of Care Code 69629 Subseq Hosp Care Lvl 3 Diagnoses Acute and chronic respiratory failure J96.21 Respiratory failure complication: hypoxia Left foot pain M79.672 COPD (chronic obstructive pulmonary disease) J44.9 DM2 (diabetes mellitus, type 2) E11.9 Chronic renal failure, stage 3 (moderate) N18.30 Chronic kidney disease stage 3 subtype: unspecified whether 3a or 3b Hypothyroidism E03.9 ACTH deficiency E23.6 Depression F32.9 DVT prophylaxis Z29.9 (1) Acute and chronic respiratory failure Respiratory failure complication: hypoxia Qualified Code(s): J96.21 - Acute and chronic respiratory failure with hypoxia (2) Chronic renal failure, stage 3 (moderate) Chronic kidney disease stage 3 subtype: unspecified whether 3a or 3b Qualified Code(s): N18.30 - Chronic kidney disease, stage 3 unspecified
[2021-09-30] MEDS ORDERED: LEVALBUTEROL 0.31MG/3 ML VIAL NEB PRN (14:47)
[2021-09-30] MEDS: CALCIUM CARBONATE 500 MG CHEWABLE TAB PO PRN (20:03)
[2021-09-30] MEDS: ACETAMINOPHEN 325 MG TAB PO PRN (20:03)
[2021-10-01] MEDS: LEVOTHYROXINE SODIUM 112 MCG TABLET PO SCH (05:46)
[2021-10-01 07:53] LABS: Hematocrit (blood only) 29.9 % (37-47); Hemoglobin 9.8 g/dL (12.0-16.0); Mean Corpuscular Hemoglobin 27.7 pg (25-34); Mean Corpuscular Hgb Conc 32.8 g/dL (32-36); Mean Corpuscular Volume 84.5 fL (80-100); Mean Platelet Volume 10.3 fL (7.4-10.4); Platelet Count 201 K/uL (130-400); RDW Coefficient of Variation 16.2 % (11.5-14.5); RDW Standard Deviation 50.9 fL (36.4-46.3); Red Blood Count 3.54 M/uL (4.2-5.4); White Blood Count 5.64 K/uL (4.8-10.8)
[2021-10-01 08:23] LABS: BUN Creatinine Ratio 18.1 (10-20); Calcium 9.3 mg/dl (8.5-10.1); Est GFR (African American) 28.4 ml/min; Est GFR (Non-African American) 24.5 ml/min; Magnesium 1.8 mg/dl (1.7-2.4); Potassium 4.6 mmol/L (3.5-5.1)
[2021-10-01] MEDS: INSULIN ASPART PER UNIT SC SCH ×4 (08:38→21:56)
[2021-10-01] MEDS: FAMOTIDINE 20 MG TAB PO SCH (08:39)
[2021-10-01] MEDS: HYDROCORTISONE 10 MG TAB PO SCH ×2 (08:39→15:38)
[2021-10-01] MEDS: FOLIC ACID 1 MG TAB PO SCH (08:39)
[2021-10-01] MEDS: SERTRALINE HCL 100 MG TABLET PO SCH (08:39)
[2021-10-01] MEDS: DOXYCYCLINE HYCLATE 100 MG CAP PO SCH ×2 (08:39→21:51)
[2021-10-01] MEDS: THEOPHYLLINE 300MG EXTENDED REL TAB PO SCH ×2 (08:39→21:51)
[2021-10-01] MEDS: POTASSIUM CHLORIDE CRTAB 20 MEQ TABCR PO SCH (08:40)
[2021-10-01] MEDS: HEPARIN SOD 5,000 UNIT/0.5 ML VIAL SQ SCH ×2 (08:40→21:51)
[2021-10-01] MEDS: oxyCODONE HCL IR 5 MG TAB (IMMEDIATE RELEASE) PO PRN (13:19)
--- NOTE | 2021-10-01 18:42 | Hospitalist Progress Note ---
Date of Service October 01, 2021 Assessment & Plan (1) Chronic renal failure, stage 3 (moderate): Plan: - Cr 1.69 on admission, baseline? ~1.7 Acutely elevated to 1.98 peak yesterday, 1.93 today, given small fluid bolus yesterday for hypovolemia Currently with creatinine clearance 27, estimated GFR 24 limiting gout treatment as above Follow UOP and renal output for borderline CHRISTIAN, hold diuresis BMP in the morning (2) Left foot pain: Plan: - Patient reports she has episodes of severe pain and erythema in her bilateral legs that seem to correlate with when she runs out of her hydrocortisone. Suspect that the erythema and tenderness of her foot and ankle joint today is due to this, she ran of hydrocortisone about a week ago. - hydrocortisone 20 mg in a.m., 10 mg in the afternoon continued Patient with some improvement today ESR 38, CRP 6.11 on admission, BRET negative Additional colchicine dosing contraindicated due to renal function, NSAIDs contraindicated due to renal functions? Borderline kidney injury. Continue hydrocortisone, if stable fluid progress to discharge and outpatient management tomorrow (3) Acute and chronic respiratory failure: Plan: - Suspect acute on chronic COPD Improved following methylprednisolone treatment No wheezing Continue duo nebs as needed Doxycycline 100 mg twice daily for 5-day course Continue theophylline (4) COPD (chronic obstructive pulmonary disease): Plan: - As above. (5) DM2 (diabetes mellitus, type 2): Plan: -Glucose checks AC/at bedtime SSI Adequate glycemic control today (6) Hypothyroidism: Plan: - Continue levothyroxine 112 mcg daily. (7) ACTH deficiency: Plan: - Chronic, stable, not presenting in acute adrenal crisis. - Continue hydrocortisone 20 mg p.o. every morning and 10 mg p.o. every afternoon. (8) Depression: Plan: - Chronic, stable. - Continue zoloft. (9) Hypomagnesemia: Plan: - 1.5 in ED, 1g given in ED for repletion. -1.8, normalized on recheck Plan: -Admit to med/surg with tele. -SCDs, [place] Heparin for DVT ppx. -Full Code. Admission and Anticipated Discharge Date Admission Date: September 28, 2021 Subjective Breathing improved, no wheezing today. Left foot continues to be sore, a little bit better than previous not yet normal No fever, chills, sweats. No cough today. Eating well, has been tolerating fluids well. No diarrhea/constipation Review of Systems Review of Systems: All systems reviewed & are unremarkable except as noted in Subjective Physical Exam Physical Exam: General: A&Ox3. NAD. Cooperative. HEENT: Atraumatic, normocephalic. Pulm: CTAB A&P. Recent expiratory wheeze, -rales, -rhonchi. Symmetrical chest rise. No increase in work of breathing. No respiratory distress. Cardiac: RRR, -mrg. Radial pulses intact and symmetrical. Abdominal: Nontender, nondistended, soft. BS present. Extremities: Left forming machine tender on dorsal surface at midfoot, right foot without tenderness. 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 Results & Data Results & Data ([facility]) Vital Signs (Past 12 Hours) Vital Signs Temp Pulse Pulse Resp BP Pulse Ox 10/01/21 15:55 37.0 C 82 18 109/64 97 10/01/21 14:17 82 10/01/21 11:51 36.9 C 62 18 111/67 98 10/01/21 06:46 36.9 C 77 20 127/71 99 PG Care Time/CCT Total # of Minutes Spent Total Time Spent with Patient: Total time spent is greater than 50% in coordination of care (as documented) at patient's floor/unit and/or counseling patient: Coding Level of Care Code 33041 Subseq Hosp Care Lvl 2 Diagnoses Acute and chronic respiratory failure J96.21 Respiratory failure complication: hypoxia COPD (chronic obstructive pulmonary disease) J44.9 Left foot pain M79.672 DM2 (diabetes mellitus, type 2) E11.9 Chronic renal failure, stage 3 (moderate) N18.30 Chronic kidney disease stage 3 subtype: unspecified whether 3a or 3b Hypothyroidism E03.9 ACTH deficiency E23.6 Depression F32.9 Hypomagnesemia E83.42 (1) Acute and chronic respiratory failure Respiratory failure complication: hypoxia Qualified Code(s): J96.21 - Acute and chronic respiratory failure with hypoxia (2) Chronic renal failure, stage 3 (moderate) Chronic kidney disease stage 3 subtype: unspecified whether 3a or 3b Qualified Code(s): N18.30 - Chronic kidney disease, stage 3 unspecified
[2021-10-02] MEDS: LEVOTHYROXINE SODIUM 112 MCG TABLET PO SCH (05:56)
[2021-10-02 06:45] LABS: BUN Creatinine Ratio 20.4 (10-20); Calcium 9.2 mg/dl (8.5-10.1); Creatinine Clr Calc Pharmacy 27.3 ml/min; Est GFR (African American) 28.8 ml/min; Est GFR (Non-African American) 24.8 ml/min
[2021-10-02] MEDS: DOXYCYCLINE HYCLATE 100 MG CAP PO SCH (08:37)
[2021-10-02] MEDS: FOLIC ACID 1 MG TAB PO SCH (08:37)
[2021-10-02] MEDS: THEOPHYLLINE 300MG EXTENDED REL TAB PO SCH (08:37)
[2021-10-02] MEDS: HYDROCORTISONE 10 MG TAB PO SCH (08:38)
[2021-10-02] MEDS: HEPARIN SOD 5,000 UNIT/0.5 ML VIAL SQ SCH (08:38)
[2021-10-02] MEDS: FAMOTIDINE 20 MG TAB PO SCH (08:38)
[2021-10-02] MEDS: SERTRALINE HCL 100 MG TABLET PO SCH (08:38)
[2021-10-02] MEDS: INSULIN ASPART PER UNIT SC SCH ×2 (08:39→12:05)
[2021-10-02] MEDS: POTASSIUM CHLORIDE CRTAB 20 MEQ TABCR PO SCH (08:41)
--- NOTE | 2021-10-02 15:09 | Discharge Summary ---
Date of Service October 02, 2021 Admission HPI Per Admitting Provider Patient is a 76-year-old female with a past medical history of adrenal insufficiency, hypothyroidism, CKD IIIa, depression, COPD, DM2, and NSCLC (2017) who presents today with onset of shortness of breath this morning. Patient states that this morning around 4:30 AM, she became short of breath. She took her home inhalers with only slight alleviation. She noted becoming increasingly worse throughout the day, both at rest and with exertion which prompted her to call EMS for further evaluation ED. She notes occasional palpitations on and off for the past several weeks however otherwise denies fever/chills, myalgias, fatigue, chest pain, nausea/vomiting, abdominal pain, increased urinary frequency/urgency, dysuria, diarrhea, constipation. Patient does wer 2L NC at night. In addition to this, she has left lower foot/ankle erythema and pain that has been ongoing for the past 3 to 4 days. She states this is a chronic issue that comes and goes for her, she denies any recent or distant injury to the ankle. S ometimes it affects her right ankle as well. Of note, within the past week she ran out of her hydrocortisone which she takes for an adrenal insufficiency and several days later, her foot became painful and swollen. Principal Diagnosis Acute COPD exacerbation Gout Discharge Exam General: A&Ox3. NAD. Cooperative. HEENT: Atraumatic, normocephalic. Vision/Hearing grossly intact. Pulm: CTAB A&P. -wheeze, -rales, -rhonchi. Symmetrical chest rise. No increase in work of breathing. No respiratory distress. Cardiac: RRR, -mrg. Radial pulses intact and symmetrical. Abdominal: Nontender, nondistended, soft. BS present. Extremities: Left soap tender on dorsal surface at midfoot, right foot without tenderness. Information Systems Specialist strength intact bilaterally. Discharge Data Allergies Allergy/AdvReac Type Severity Reaction Status Date / Time Penicillins Allergy Severe TONGUE Verified 09/28/21 17:09 SWELLING adhesive Allergy Intermediate PULLS SKIN Verified 09/28/21 17:09 OFF azithromycin AdvReac Intermediate Nausea Verified 09/28/21 17:09 Consultations 09/28/21 15:52 ED Decision to Admit Stat Ordered Studies 09/28/21 12:28 CT foot LT wo con Stat 09/30/21 10:50 CT chest diagnostic wo con Urgent Hospital Course (1) Chronic renal failure, stage 3 (moderate): Kasie is a 76-year-old female the past medical history of adrenal suppression, COPD, GERD, and gout who presented with a COPD exacerbation and experienced a gout flare. She has experienced gout flares when running out of her hydrocortisone previously. Her COPD exacerbation was treated, her home hydrocortisone dosing was resumed, and she experienced improvement in her symptoms. Her gap was improving at time of discharge, colchicine/NSAIDs were deferred due to her underlying renal function and she was improving with resumption of her steroids. Prednisone burst was discussed, patient felt that she was doing well and progressing well and that this was not needed at time of discharge. To do as outpatient: 1. PCP follow-up 2. Follow-up of gout flare progression, may need prednisone burst if does not resolve although improving well on hydrocortisone at time of discharge. Colchicine/NSAIDs contraindicated by renal status 3. Follow-up BMP in 1 week to follow creatinine. Patient's baseline creatinine appears approximately 1.71.8, with stabilized and downtrending around 1.9 at discharge. 1 dose of colchicine given during admission, additional limited due to GFR 4. Continue hydrocortisone 20 mg / 10 mg dosing 5. Complete 2 additional days of doxycycline 100 mg twice daily to complete 5 days of treatment for COPD exacerbation 6. Follow-up to make sure doing well and home environment. Office of aging had reached out to case management with concern for safety and home environment. PT/OT saw patient, she is ambulating well recommended for discharge home. Patient declined any type of rehab referral. Was discussed with case management, okay to discharge home and reaching out to [facility] for further facilitation of care and resource check in 7. Continue diabetes follow-up, A1c above goal at 7.2. Seen by hospice educator, provided with Accu-Chek Ailyn and patient agrees to notify provider with values greater than 180. Consider addition of Januvia 25 mg daily as outpatient. Renal failure - Cr 1.69 on admission, baseline? ~1.7-1.8 Acutely elevated to 1.98 peak yesterday, 1.93 today, given small fluid bolus yesterday for hypovolemia Currently with creatinine clearance 27, estimated GFR 24 limiting gout treatment as above (2) Left foot pain: - Patient reports she has episodes of severe pain and erythema in her bilateral legs that seem to correlate with when she runs out of her hydrocortisone. Suspect that the erythema and tenderness of her foot and ankle joint today is due to this, she ran of hydrocortisone about a week ago. - hydrocortisone 20 mg in a.m., 10 mg in the afternoon continued Patient with some improvement today ESR 38, CRP 6.11 on admission, BRET negative Additional colchicine dosing contraindicated due to renal function, NSAIDs contraindicated due to renal functions? Borderline kidney injury. Continue hydrocortisone, if stable fluid progress to discharge and outpatient management tomorrow (3) Acute and chronic respiratory failure: - Suspect acute on chronic COPD Improved following methylprednisolone treatment No wheezing Continue duo nebs as needed Doxycycline 100 mg twice daily for 5-day course Continue theophylline (4) COPD (chronic obstructive pulmonary disease): - As above. (5) DM2 (diabetes mellitus, type 2): -Glucose checks AC/at bedtime SSI Adequate glycemic control while inpatient Seen by hospice educator. Discharge recommendations as follow: Monitor glucose day-to-day, notify PCP of blood sugar greater than 180. Consider addition of Januvia 25 mg daily as outpatient. Prescription for Accu-Chek Ailyn plus meter with lancets and test strips provided (6) Hypothyroidism: - Continue levothyroxine 112 mcg daily. (7) ACTH deficiency: - Chronic, stable, not presenting in acute adrenal crisis. - Continue hydrocortisone 20 mg p.o. every morning and 10 mg p.o. every afternoon. (8) Depression: - Chronic, stable. - Continue zoloft. (9) Hypomagnesemia: - 1.5 in ED, 1g given in ED for repletion. -1.8, normalized on recheck -Admit to med/surg with tele. -SCDs, [place] Heparin for DVT ppx. -Full Code. Total Time Total Time Spent Total Time Spent (In Minutes): Time spend day of discharge 40 minutes including direct patient care, documentation, review of labs and images, and coordination of care. Discharge Plan Discharge Items Patient Disposition: Home - Self-Care Reason For Visit: SHORTNESS OF BREATH Discharge Diagnosis: COPD exacerbation, gout Condition on Discharge: Fair Activity: Resume your previous activity Non-emergency contact: Primary Care Provider Call non-emergency contact if: you have any medication questions, your symptoms worsen and your pain is not controlled Follow-up/Referrals: Arthur Cruz [Primary Care Provider] - Diet: Carb Consistent or DM2 Addtl Attending Provider Instructions: You are seen in the hospital for left foot pain due to a gout flare after running out of your steroid medication and acute on chronic respiratory failure suspected due to a COPD exacerbation. You COPD exacerbation was treated with methylprednisolone and doxycycline, and you clinically improved your normal baseline. You experience left foot pain consistent with a gout flare which you have had previously and had run out of your steroid medications. You were treated with a dose of colchicine and your hydrocortisone was resumed. Additional colchicine was not recommended, and additionalAnti- inflammatories/NSAIDs were not recommended due to your underlying kidney function. Your gout was improving, is recommended that you be discharged to continue your hydrocortisone dose with close follow-up to PCP. Allopurinol can help prevent gout flares, but this should not be started during an acute gout flare and your symptoms should be resolved for 1 to 2 weeks before considering this. Please discuss this with your primary care physician on follow-up. Refills of your hydrocortisone have been sent to the pharmacy. Your blood sugar was slightly high and your A1c was 7.2 during admission, suggesting diabetes control that was not at goal. Diabetes medications were not started at discharge as your kidney function was still being observed, please discuss Januvia with your primary care physician at follow-up. A prescription has been sent in for an Accu-Chek meter, please check your blood sugar as directed by the hospice educator and call your primary care physician for any values greater than 180 You are prescribed an antibiotic for your COPD exacerbation and to cover for pneumonia, doxycycline. Please take doxycycline 100 mg twice daily for 2 more days to complete a 5-day course of treatment. Your kidney function was slightly elevated to 1.9 during admission, and was improving at time of discharge. Your normal baseline is unclear, likely normal around 1.61.7. Please have a follow-up blood draw/BMP performed by your primary care physician to ensure that your kidney numbers do not go up. A followup appointment is being scheduled for you with your PCP. You should be seen seen within 1-2 weeks. You should receive a call to confirm this appointment. If you do not receive a call within 48 hours to confirm this appointment, or need to change this appointment, please call the provider's office. If you develop any new or worsening symptoms including fever, chills, sweats, chest pain, chest pressure, difficulty breathing, uncontrolled nausea/vomiting, rash, wheezing, passing out or nearly passing out, bleeding, black/bloody bowel movements, or other new or concerning symptoms please call your primary care physician, or call 911 for re-evaluation in the emergency department if you are very concerned. Pending Studies at Discharge: No Stand-Alone Forms: My [facility], Smoking Cessation Medications and DC Order Prescriptions: New doxycycline hyclate 100 mg Capsule 100 mg PO BID Qty: 4 RF: 0 hydrocortisone [Cortef] 10 mg Tablet 10 mg PO DAILY@1500 Qty: 30 RF: 0 hydrocortisone [Cortef] 10 mg Tablet 20 mg PO QAM Qty: 30 RF: 0 tramadol 50 mg Tablet 50 mg PO TID PRN (Reason: pain) Qty: 15 RF: 0 (DME) lancets [Accu-Chek Fastclix Lancet Drum] Misc See Rx Instructions .Route Qty: 100 RF: 0 (DME) blood-glucose meter [Accu-Chek Ailyn Plus Meter] Misc See Rx Instructions .Route Qty: 1 RF: 0 (DME) Accu-Chek Ailyn Plus test strp Strip See Rx Instructions .Route Qty: 100 RF: 0 Continued sertraline [Zoloft] 100 mg tablet 100 mg PO QAM RF: 0 Combivent Respimat 20-100 mcg/actuation Mist 1 puff INHALATION Q4H PRN (Reason: Shortness Of Breath Or Wheezing) RF: 0 furosemide 20 mg tablet 20 mg PO DAILY PRN (Reason: swelling) RF: 0 levothyroxine 112 mcg tablet 112 mcg PO DAILYBB RF: 0 albuterol sulfate 2.5 mg /3 mL (0.083 %) solution for nebulization 2.5 mg continuous nebulization Q4 PRN (Reason: cough,sob) RF: 0 potassium chloride 20 mEq tablet extended release 20 meq PO DAILY Qty: 30 RF: 0 theophylline 100 mg Tablet Extended Release 12 Hr 100 mg PO BID RF: 0 Discharge Orders: Discharge Order (Routine); Ordered 10/02/21 Ordered By: Huey Valladares Admission Data Admit Date/Time: 09/28/21 16:51 Attending Provider: Huey Valladares Admit Provider: Marco Bullock Primary Care Provider: Arthur Cruz Other Providers: Derek Israel Coding Level of Care Code D/C DAY MANAGEMENT >30 MINS Diagnoses Chronic renal failure, stage 3 (moderate) N18.30 Chronic kidney disease stage 3 subtype: unspecified whether 3a or 3b Left foot pain M79.672 Acute and chronic respiratory failure J96.21 Respiratory failure complication: hypoxia COPD (chronic obstructive pulmonary disease) J44.9 DM2 (diabetes mellitus, type 2) E11.9 Hypothyroidism E03.9 ACTH deficiency E23.6 Depression F32.9 Hypomagnesemia E83.42
== END 2021-10-02 15:54 | disposition home or self-care (01) ==
LOC: ED 12:03 → SUATTDRO 16:51 → INTOOBSV 16:51 → 2N 16:51
DX: F17.210 Nicotine dependence, cigarettes, uncomplicated; Z88.0 Allergy status to penicillin; E03.9 Hypothyroidism, unspecified; E11.22 Type 2 diabetes mellitus with diabetic chronic kidney disease; E23.6 Other disorders of pituitary gland; M79.672 Pain in left foot; F32.9 Major depressive disorder, single episode, unspecified; N18.31 Chronic kidney disease, stage 3a; J96.21 Acute and chronic respiratory failure with hypoxia; E83.42 Hypomagnesemia; M19.072 Primary osteoarthritis, left ankle and foot; J44.1 Chronic obstructive pulmonary disease with (acute) exacerbation; Z79.890 Hormone replacement therapy; Z79.51 Long term (current) use of inhaled steroids; M10.9 Gout, unspecified; Z88.1 Allergy status to other antibiotic agents